=== PATIENT | female | born 1950 | race Caucasian/White ===

== ENCOUNTER → 2016-03-31 | Outpatient (CLI) | payer MEDICARE ==
[2015-10-24 19:06] VITALS: BP 123/73
[~2016-03-31] MED LIST: ALPR0.25 PO; ARMO250T2 PO; CYCL10TA2 PO; DOCU-27 PO; DULO60CA6 PO; ESCI10TA PO; ESCI20TA10 PO; ESCI5TAB8 PO; HYDR-2666 PO; HYDR-2762 PO; HYDR-963 PO; HYDR4TAB13 PO; IBUP-1060 PO; IBUP200T77 PO; MODA100T18 PO; RANI300C PO; RANI300T PO; TRAZ100T12 PO; TRIA1CAP13 PO
--- NOTE | 2016-03-31 14:04 | KCIC ---
PROCEDURE Two-view chest dated 03/31/2016. HISTORY Pneumonia, cough and shortness of breath for 1 month. TECHNIQUE PA and lateral views obtained. COMPARISON None. FINDINGS Heart and mediastinal contours within normal limits. Lungs are clear without focal consolidation. Vascular interstitium within normal limits. No pleural effusion or pneumothorax. Postsurgical changes of the thoracolumbar spine. IMPRESSION No acute radiographic abnormality. Electronically signed by: Jung Castro (Mar 31, 2016 14:02:10)
== END | disposition home or self-care (01) ==
LOC: KCIC 13:33
PROVIDERS: ATTEND Family Medicine
DX: J18.9 Pneumonia, unspecified organism (principal); R05 Cough; R06.02 Shortness of breath
CPT/HCPCS: 71020

== ENCOUNTER → 2016-08-17 | Outpatient (CLI) | payer MEDICARE ==
[2015-10-24 19:06] VITALS: BP 123/73
[~2016-08-17] MED LIST changes: +ERGO500012 PO; +GUAI600T38 PO; +OMEG1CAP38 PO; +TRIA1TAB5 PO
[2016-08-17 09:20] LABS: BASO # 0.1 x10^3/uL (0.0-0.2); BASO % 1 % (0-3); EOS % 4 % (0-3); HEMATOCRIT 44.6 % (36.0-47.0); HEMOGLOBIN 15.2 g/dL (12.0-15.5); LYMPH # 2.5 x10^3/uL (1.0-4.8); LYMPH % 31 % (24-48); MEAN CORPUSCULAR HEMOGLOBIN 29 pg (25-35); MEAN CORPUSCULAR HGB CONC 34 g/dL (31-37); MEAN CORPUSCULAR VOLUME 86 fL (79-100); MONO % 5 % (0-9); NEUT % 60 % (31-73); PLATELET COUNT 322 x10^3/uL (140-400); RED BLOOD COUNT 5.19 x10^6/uL (3.50-5.40); RED CELL DISTRIBUTION WIDTH 14.2 % (11.5-14.5); WHITE BLOOD COUNT 7.9 x10^3/uL (4.0-11.0)
[2016-08-17 09:25] LABS: PROTHROMBIN TIME PATIENT 12.5 SEC (11.7-14.0)
[2016-08-17 09:43] LABS: ALBUMIN 3.6 g/dL (3.4-5.0); CALCIUM 9.7 mg/dL (8.5-10.1); CREATININE 1.2 mg/dL (0.6-1.0); GFR 44.9; POTASSIUM 3.6 mmol/L (3.5-5.1)
[2016-08-17 10:36] LABS: BILIRUBIN,URINE NEGATIVE (NEG); GLUCOSE,URINE NEGATIVE (NEG); NITRITE,URINE NEGATIVE (NEG); PROTEIN,URINE NEGATIVE (NEG-TRACE); UROBILINOGEN,URINE 0.2 mg/dL (0.2 mg/dL)
[2016-08-17 10:56] LABS: RBC,URINE 0 /HPF (0-2)
[2016-08-17 10:57] LABS: BACTERIA,URINE MANY /HPF (0-FEW); SQUAMOUS EPITHELIAL CELL,UR MANY /LPF; WBC,URINE OCC /HPF (0-4)
== END | disposition home or self-care (01) ==
LOC: SURGPAT 12:35
PROVIDERS: ATTEND Orthopaedic Surgery
DX: M17.11 Unilateral primary osteoarthritis, right knee (principal)
CPT/HCPCS: 36415; 80048; 81001; 82040; 83036; 85027; 85610; 85651; 85730; 87086; 87641

== ENCOUNTER 2016-08-25 05:57 | Inpatient (IN) | payer MEDICARE ==
[2016-08-25] VITALS (10 sets, daily range): BP systolic 82–114; BP diastolic 49–70
[~2016-08-25] VITALS: Ht 167.6 cm; Wt 89.8 kg
[~2016-08-25 05:57] MED LIST changes: -ARMO250T2 PO; +ARMO250T4 PO; +DOCU-109 PO; -DOCU-27 PO; -ERGO500012 PO; +ERGO500027 PO; -ESCI10TA PO; -ESCI20TA10 PO; -ESCI5TAB8 PO; +ESCITALOPRAM OX10 MG PO; -GUAI600T38 PO; +GUAI600T47 PO; -HYDR-2666 PO; +HYDR-2758 PO; -HYDR4TAB13 PO; +HYDR4TAB45 PO; +LEXAPRO20 MG PO; +LEXAPRO5 MG PO; -MODA100T18 PO; +MODA100T26 PO
[2016-08-25] MEDS ORDERED: VANCOMYCIN 1GM IVPB FOR OMNI 250 ML IV PRN (06:00)
[2016-08-25] MEDS ORDERED: MORPHINE SULFATE 5 MG, KETOROLAC TROMETHAMINE 30 MG, ROPIVacaine 0.5% PF 60 ML, EPINEPH... INT ART ONE ×5 (06:00)
[2016-08-25] MEDS ORDERED: ONDANSETRON PF 4 MG/2 ML VIAL. IV PRN (07:00)
[2016-08-25] MEDS ORDERED: IV RINGERS,LACTATED 1000ML 1,000 ML IV SCH (07:00)
[2016-08-25] MEDS ORDERED: PROCHLORPERAZINE 10 MG/2 ML VIAL. IV PRN ×2 (07:00→10:00)
[2016-08-25] MEDS ORDERED: fentaNYL PF VIAL 100 MCG/2 ML VIAL IV PRN ×3 (07:00→10:00)
[2016-08-25] MEDS: IV RINGERS,LACTATED 1000ML 1,000 ML IV SCH ×2 (07:00→20:50)
[2016-08-25] MEDS ORDERED: LIDOCAINE 1% 1 ML SYRINGE. ID PRN (07:00)
[2016-08-25] MEDS ORDERED: WARF-78 PO (07:01)
[2016-08-25] MEDS ORDERED: MELO7.5T5 PO (07:02)
[2016-08-25] MEDS ORDERED: MELOXICAM 7.5 MG TABLET PO ONE (07:05)
[2016-08-25] MEDS ORDERED: ROCURONIUM 50 MG/5 ML VIAL. ONE (07:10)
[2016-08-25] MEDS ORDERED: LIDOCAINE 2% PF Vial for OR 5 ML VIAL. ONE (07:10)
[2016-08-25] MEDS ORDERED: MIDAZOLAM HCL/PF 2 MG/2 ML VIAL. ONE (07:10)
[2016-08-25] MEDS ORDERED: fentaNYL PF VIAL 100 MCG/2 ML VIAL ONE ×3 (07:10→08:02)
[2016-08-25] MEDS ORDERED: DEXAMETHASONE SOD PHOS 20 MG/5 ML VIAL. ONE (07:10)
[2016-08-25] MEDS ORDERED: PROPOFOL 20 ML IV ONE (07:10)
[2016-08-25] MEDS ORDERED: ONDANSETRON PF 4 MG/2 ML VIAL. ONE (07:10)
[2016-08-25] MEDS ORDERED: FAMOTIDINE 20 MG/2 ML VIAL ONE (07:10)
[2016-08-25] MEDS ORDERED: LABETALOL 20 MG/4 ML DISP.SYRIN. ONE (08:01)
[2016-08-25 08:10] LABS: PROTHROMBIN TIME PATIENT 12.3 SEC (11.7-14.0)
[2016-08-25] MEDS ORDERED: NEOSTIGMINE METHYLSULFATE 5 MG/5 ML SYRINGE. ONE (08:50)
[2016-08-25] MEDS ORDERED: GLYCOPYRROLATE 1 MG/5 ML VIAL. ONE (08:50)
[2016-08-25] MEDS ORDERED: SEVOFLURANE 61 TO 120 MINUTES. IH ONE (08:51)
[2016-08-25] MEDS ORDERED: MELOXICAM 7.5 MG TABLET PO SCH (09:00)
[2016-08-25] MEDS ORDERED: SEVOFLURANE > 120 MINUTES. IH ONE (09:36)
[2016-08-25] MEDS ORDERED: ACETAMINOPHEN 325 MG TABLET. PO PRN (10:00)
[2016-08-25] MEDS ORDERED: MORPHINE SULFATE 4 MG/ML DISP.SYRIN. IV PRN ×2 (10:00)
[2016-08-25] MEDS ORDERED: MORPHINE SULFATE 2 MG/ML DISP.SYRIN. IV PRN (10:00)
[2016-08-25] MEDS ORDERED: ZOLPIDEM 5 MG TABLET. PO PRN (10:00)
[2016-08-25] MEDS ORDERED: MORPHINE SULFATE 10 MG/ML VIAL. IV PRN (10:00)
[2016-08-25] MEDS ORDERED: CALCIUM CARBONATE 500 MG TAB.CHEW PO PRN (10:00)
[2016-08-25] MEDS ORDERED: diphenhydrAMINE 50 MG/ML VIAL IV PRN (10:00)
[2016-08-25] MEDS ORDERED: DEXTROSE 50% 25 GM / 50ML DISP.SYRIN. IV PRN (10:00)
[2016-08-25] MEDS ORDERED: traMADol 50 MG TABLET PO PRN (10:00)
[2016-08-25] MEDS ORDERED: HYDROmorphone 2 MG/ML VIAL IVP PRN (10:00)
[2016-08-25] MEDS ORDERED: HYDROmorphone 2 MG TABLET PO PRN (10:00)
[2016-08-25] MEDS: fentaNYL PF VIAL 100 MCG/2 ML VIAL IV PRN ×2 (10:20→11:10)
--- NOTE | 2016-08-25 10:38 | RAD ---
AP and lateral right knee radiographs 08/25/2016 Clinical history: Post right knee replacement. Portable AP and lateral digital radiographs of the right knee were obtained. The patient is status post right SHELLIE. The prosthetic components are intact. No fracture or dislocation is seen. Impression: Status post right TKA. No acute osseous abnormality is seen.
--- NOTE | 2016-08-25 10:45 | PDOC ---
BRIEF OPERATIVE NOTE Date: Aug 25, 2016 Pre-Op Diagnosis djd right knee Post-Op Diagnosis same Procedure Performed right total knee arthroplasty Surgeon Jono Chang Blood Loss 500cc Specimens Obtained cartilage surfaces to pathology Findings above Complications none LESLIE PEREZ MD Aug 25, 2016 10:45
--- NOTE | 2016-08-25 11:13 | HP ---
ADMIT DATE: 08/25/2016 PREOPERATIVE HISTORY AND PHYSICAL CHIEF COMPLAINT: Right knee pain and degenerative change. HISTORY OF PRESENT ILLNESS: The patient has had long-term right knee pain much worse even in the past few weeks. It is severely affecting her activities of daily living and continues to have much more severe right than left knee pain. She has had several previous injections that have been unresponsive and a history of DVT with previous foot surgery. She has also got some low back pain that is giving her problems affecting her sleep. PAST MEDICAL HISTORY: Significant for hypertension, reflux disease, depression, chronic back and neck pain, type 2 diabetes, pyelonephritis history, hyperlipidemia, recurrent sinusitis, history of lower GI bleed and inflammatory bowel disease. PAST SURGICAL HISTORY: Significant for hysterectomy, D and C, cholecystectomy, cervical fusion, lumbar diskectomy x 2, lumbar fusion with rods and a revision, total of about 8 back surgeries overall, cervical fusion C4-C5, lap band surgery and colonoscopy. FAMILY HISTORY: Significant for her father at 36 years due to kidney issues. Brother with blindness, hypertension, heart attack. Grandparents of old age and history of colon cancer in an uncle. SOCIAL HISTORY: She is a current smoker ____ about 40 years, quit and restarted back in 2013. Denies drug use, occasional alcohol consumption. 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 MEDICATIONS: List is reviewed. ALLERGIES: INCLUDE SULFA, WHICH GIVES HER A RASH; WELLBUTRIN, NEURONTIN; HIVES WITH KEFLEX; DIARRHEA WITH METFORMIN; MYALGIAS WITH CRESTOR; STOMACH UPSET WITH OPANA ER; HYDROCODONE, ITCHING AND PERCOCET THAT GAVE HER "HANGOVER". REVIEW OF SYSTEMS: Denies any chest pain, shortness of breath, fever, chills, constitutional symptoms. Again much more severe pain in her knee, even in the past couple of weeks. PHYSICAL EXAMINATION: VITAL SIGNS: Per admission sheet. HEENT: Atraumatic, normocephalic. HEART: Regular rate and rhythm. LUNGS: Clear to auscultation bilaterally. ABDOMEN: Benign. EXTREMITIES: Examination of the right knee, she has a moderate flexion contracture on the right and mild on the left. Has mild patellofemoral crepitus bilaterally, joint line tenderness right-sided much more so than the left. Ligamentously stable. Antalgic gait secondary to her right knee pain and DJD. IMAGING: X-rays show tricompartmental degenerative changes present on the right knee with some varus alignment and medial joint line where primarily. ASSESSMENT: Primary osteoarthritis, right knee. History of deep venous thrombosis, primary hypertension, neuropathy of feet, chronic pain syndrome, multiple back surgeries. TREATMENT PLAN: We have previously covered the possibility of operative management of the right knee with risks, benefits, postoperative course and she understands the possibility of infection, nerve or blood vessel damage, premature wear or loosening, medical or other anesthetic complications among others. All her questions were answered and she does want to proceed with surgical evaluation and treatment. We talked about the postoperative treatment options as well including outpatient rehabilitation, home health, physical therapy and the possibility of even a rehab if necessary, she prefers the [facility] in [place]. Outpatient physical therapy may be at [facility] in [place], which she was previously ____ convenient for her. LESLIE PEREZ MD DR: VINCE/sherry JOB#: [id number] / [id number] BLANCA Bermudez MD
[2016-08-25] MEDS: ESCITALOPRAM 10 MG TABLET. PO SCH (12:00)
[2016-08-25] MEDS: TRIAMTERENE/HCTZ 75/50MG TABLET. PO SCH (12:00)
[2016-08-25] MEDS: CLINDAMYCIN 600MG PREMIX 50 ML IV SCH ×2 (13:35→19:12)
[2016-08-25] MEDS: CYCLOBENZAPRINE 10 MG TABLET. PO SCH ×2 (13:39→21:38)
[2016-08-25] MEDS: KETOROLAC TROMETHAMINE 10 MG TABLET PO SCH ×2 (13:39→17:16)
[2016-08-25] MEDS: SENNOSIDES/DOCUSATE 8.6/50MG TABLET. PO SCH (13:39)
[2016-08-25] MEDS: HYDROmorphone 4 MG TABLET PO PRN (14:13)
[2016-08-25] MEDS ORDERED: WARFARIN 7.5 MG TABLET. PO ONE (16:00)
--- NOTE | 2016-08-25 16:40 | ACF ---
Admission Forms Criteria AMBULATORY SURGERY EXCEPTION CRITERIA Ambulatory Surgery Exception Criteria ( Place 'X' for any and all applicable criteria): Surgery or procedure performed on ambulatory basis may require inpatient stay for[A] ANY ONE of the following(1)(2)(3)(4)(5)(6)(7)(8)(9): [X] I. A preoperative situation, condition, or finding that warrants inpatient stay as indicated by ANY ONE of the following: [] a) Inpatient care needed because of severity of a disease or condition rather than the surgery (eg, severe cardiac or respiratory disease, severe infection) (15) (16 ) (17) (18) [] b) Emergent procedure (eg, angioplasty for acute ischemia)(19) [X] c) Complex surgical approach or situation as indicated by ANY ONE of the following(3): [X] i) Open approach needed instead of usual endoscopic, transcatheter, or other less invasive procedure [] ii) Difficult approach because of previous operation [] iii) Airway monitoring required after open neck procedures(20)(21 ) [] iv) Large mass requiring unusually extensive dissection [] v) Additional complicating feature requiring inpatient care (eg , drain management)(22(23): [] d) Major surgery in a pt with high anesthetic risk as indicated by ANY ONE of the following (2)(3)(5)(7)(8): [] i) ASA risk class III or higher (severe systemic disease impairing function) [D] [] ii) Advanced age (eg, older than 85 years)(14)(24) [] iii) Symptomatic heart failure(25) [] iv) Symptomatic asthma or COPD(8)(21) [] v) Morbid obesity with hemodynamic or respiratory problems(20)( 21)(26)(27) [] vi) Obstructive sleep apnea(20)(21) [] vii) Former premature infants who are younger than 60 weeks [] viii) High risk for severe postoperative abnormalities (eg, severe postoperative hypocalcemia after parathyroidectomy for severe hyperparathyroidism)(27)( 28) [] ix) Unstable angina(25) [] e) Drug-related risk requiring inpatient stay as indicated by ANY ONE of the following(5)(10)(14)(32)(33) [] i) Procedure requires discontinuing drugs or other therapy (eg , antiarrhythmic medication, antiseizure medication), which necessitates inpatient observation or treatment.(18)(31) [] ii) Major surgery and high risk drug use as indicated by ANY ONE of the following: [] 1) Active abuse of cocaine or similar drug [] 2) Monoamine oxidase inhibitor use [] 3) Other drug identified as posing risk [] f) Inadequate outpatient care situation as indicated by ANY ONE of the following(5)(10)(14)(32)(33) [] i) Patient lives remote from medical facility and procedure has urgent complication potential, and temporary nearby residence cannot be arranged [] ii) Patient will have postprocedure incapacitation and inadequate assistance at home, or alternative level of care cannot be arranged. [] iii) Patient will have long general anesthesia or procedure side effect resolution time, and competent person to stay with patient on first postoperative night at home or alternative level of care cannot be arranged. [] iv) Other inadequate outpatient situation that cannot be handled by other means [] II. A perioperative event, condition, or finding that warrants inpatient stay as indicated by ANY ONE of the following (1)(2)(3): [] a) Inadequate physiologic recovery: cardiovascular, respiratory, or hemodynamic status not normal or near preoperative baseline(18) [] b) Hemodynamic instability [] c) Patient not alert with near normal or baseline mental status [] d) Temperature not normal or as expected and not appropriate for outpatient treatment of condition [] e) Ambulatory or appropriate activity level status not yet achieved post procedure [E](34)(35)(36) [] f) Operative site not appropriate (eg, unexpected or excessive drainage or bleeding) [] g) Postoperative effects not resolved or adequately managed (eg, significant pain or vomiting not appropriate for outpatient or next level of care)(10)(12) [] h) Complicating features requiring inpatient care as indicated by ANY ONE of the following(37): [] i) Severe complications of procedure (eg, bowel injury, airway compromise, vascular injury,severe hemorrhage) [] ii) Extensive (eg, dissection far beyond usual scope of procedure ) or prolonged (eg, 120 minutes beyond usual) surgery needed requiring inpatient postoperative care [] iii) Conversion to an open or complex procedure that requires inpatient care (eg, open vs laparoscopic cholecystectomy, abdominal vs vaginal hysterectomy)(38) [] iv) Comorbid condition or test result identified during or post procedure that requires inpatient care (7) [] v) Malignant hyperthermia(30) [] vi) Other complicating feature requiring inpatient care(22)(23) Inpatient stay may be needed until ALL of the following are present (1)(2)(3)(4) (5)(6)(10)(14)(33)(40): []a) Physiologic recovery: cardiovascular, respiratory, and hemodynamic status normal or near preoperative baseline []b) Hemodynamic stability []c) Patient alert, with near normal or baseline mental status []d) Temperature appropriate: patient afebrile or temperature appropriate for outpt treatment of condition []e) Activity level appropriate: ambulatory or appropriate activity level post procedure []f) Operative site appropriate as indicated by ALL of the following: []i) Site dry or with expected drainage []ii) Any blood noted is as expected for procedure. []g) Postoperative effects resolved or managed as indicated by ALL of the following: []i) Pain management appropriate for outpatient (or next level of) care(10) []ii) Minimal nausea and vomiting: if present, successfully treated with oral medication(12) []iii) Headache, dizziness, or drowsiness (if present) are mild. []h) Voiding status acceptable as indicated by ANY ONE of the following: []i) Voiding spontaneously []ii) No voiding but instructions given for follow-up in 6 to 8 hours []iii) Urinary catheter in place, and instructions given for follow-up []i) Complicating features requiring inpatient care manageable at a lower level of care(37) []j) Comorbid conditions manageable at a lower level of care(37) The original [employer] content created by [employer] has been revised. The portions of the content which have been revised are identified through the use of italic text or in bold, and [employer] has neither reviewed nor approved the modified material. All other unmodified content is copyright [employer]. Please see references footnoted in the original [employer] edition 2016 Admission Criteria Met?: Yes MAYURI THORNTON Aug 25, 2016 16:40
[2016-08-25] MEDS ORDERED: PNEUMOC CONJ VACC 23-VALENT 0.5 ML VIAL. VAX IM ONE (17:00)
[2016-08-25] MEDS: IV DEXTROSE 5 %-0.45 % NACL 1,000 ML IV SCH ×2 (17:14→19:55)
[2016-08-25] MEDS: FERROUS SULFATE 325 MG TABLET. PO SCH (17:15)
[2016-08-25] MEDS: traZODone 100 MG TABLET. PO SCH (21:38)
[2016-08-25] MEDS: FAMOTIDINE 20 MG TABLET. PO SCH (21:38)
[2016-08-25] MEDS: traMADol 50 MG TABLET PO PRN (21:50)
[2016-08-26] MEDS: CLINDAMYCIN 600MG PREMIX 50 ML IV SCH (01:45)
[2016-08-26 02:55] VITALS: BP 87/56
[2016-08-26] MEDS: IV DEXTROSE 5 %-0.45 % NACL 1,000 ML IV SCH (05:55)
[2016-08-26] MEDS ORDERED: MAGNESIUM HYDROXIDE 2,400 MG/30 ML ORAL.SUSP. PO PRN (06:00)
[2016-08-26] MEDS: KETOROLAC TROMETHAMINE 10 MG TABLET PO SCH ×4 (06:14→19:37)
[2016-08-26 06:18] VITALS: BP 90/45
[2016-08-26 06:20] LABS: INR 1.3 (0.8-1.1); PROTHROMBIN TIME PATIENT 15.8 SEC (11.7-14.0)
[2016-08-26] MEDS ORDERED: NON FORMULARY ITEM (Modafinil (Provigil) 200 MG) PO SCH (09:00)
[2016-08-26] MEDS: IV RINGERS,LACTATED 1000ML 1,000 ML IV SCH (09:27)
[2016-08-26] MEDS: SENNOSIDES/DOCUSATE 8.6/50MG TABLET. PO SCH (09:31)
[2016-08-26] MEDS: FERROUS SULFATE 325 MG TABLET. PO SCH ×2 (09:31→17:08)
[2016-08-26] MEDS: CYCLOBENZAPRINE 10 MG TABLET. PO SCH ×3 (09:31→20:40)
[2016-08-26] MEDS: ESCITALOPRAM 10 MG TABLET. PO SCH (09:31)
[2016-08-26] MEDS: MULTIVITAMIN with MINERAL TABLET. PO SCH (09:32)
[2016-08-26] MEDS: TRIAMTERENE/HCTZ 75/50MG TABLET. PO SCH (09:36)
--- NOTE | 2016-08-26 09:59 | OP ---
DATE OF SURGERY: 08/25/2016 PREOPERATIVE DIAGNOSIS: Degenerative joint disease of right knee. POSTOPERATIVE DIAGNOSIS: Degenerative joint disease of right knee. PROCEDURE: Right total knee arthroplasty. SURGEON: Charli De La Cruz M.D. VISION MIXER: first carly Guerra. ANESTHESIA: General. ESTIMATED BLOOD LOSS: 500 mL. COMPLICATIONS: None. OPERATIVE INDICATIONS: The patient is a 66-year-old female with ongoing right knee pain severely affecting her activities of daily living. Even in the time was intervening between her last visit in June and her scheduled surgery, has had marked increase in her severity of pain and continues to wish to proceed with total knee arthroplasty. I had previously gone over with her the risks, benefits, postoperative course of the procedure including the possibility of infection, nerve or blood vessel damage, medical or other anesthetic complications, continued pain among others. All her questions were answered. Consent was obtained and she agrees to proceed with operative evaluation and treatment. DESCRIPTION OF PROCEDURE: The patient was identified, procedure verified, patient placed in the supine position on the operating table with a thigh tourniquet and prepped and draped in standard sterile fashion. After timeout was performed, the patient and procedure identified and verified, the tourniquet was not inflated, and a midline incision was made with medial parapatellar approach. Using the Magink display technologiestys device and electrocautery in combination bleeding points were controlled throughout the procedure. The patella was everted, fat pad was excised. Intramedullary drill was made to accommodate intramedullary femoral guide set at 5 degrees. Distal femoral cut was made in standard fashion as she had mild flexion contracture. Distal femur was sized at a size 6. Anterior, posterior chamfer cuts were then made. Posterior cruciate ligament was spared. Anterior cruciate was excised. Menisci were then excised. Extramedullary tibial cutting guide was applied to the second toe and resulting cut was noted to achieve excellent balance and flexion and extension gaps. Patella was then resurfaced. Lateral patellar bone was excised. A size 35 mm patella was chosen and trialed. Karthikeyan Persona components were then placed with a size 6 femur, size E tibia, size 35 mm patella and a 10 mm trial spacer medial congruent, which was noted to have excellent fit, ligament balance tracking. I then drilled the distal femoral lug holes, drilled and broached the tibia and trial components were removed. Thorough irrigation was carried out with normal saline solution. Previous intracapsular bleeding was controlled with Aquamantys, but again tracked particularly in the area of the ____ posterior capsule and incisional areas which were all well controlled. Bony surfaces were dried and the Karthikeyan Persona components were cemented and placed using polymethyl methacrylate cement, a size E standard tibia, a size 6 standard femur, a 35 mm patella and again a 10 mm trial spacer was placed initially with the leg held in extension until cement was dry. Any excess cement was removed. Thorough irrigation again carried out with normal saline solution. Capsular bleeding control was noted to be excellent. A vitamin E medial congruent 10 mm spacer was then locked into place. Hemovac drain and pain catheter were placed. Pain catheter mixture instilled around the area of the capsule. Retinaculum was closed with interrupted #2 Ethibond suture with running Ethibond and running #1 Vicryl as reinforcement. Subcutaneous closure with buried Vicryl suture, skin closure with subcuticular Monocryl. Steri-Strips and Mastisol were applied. The patient was extubated and transferred to postop holding in stable condition having tolerated the procedure well. Please note, Terra Chang, registered nurse first assistant, was present for the prepping, draping and assisted in subcuticular closure. CHARLI DE LA CRUZ MD DR: VINCE/sherry JOB#: [id number] / [id number] BLANCA Bermudez MD
[2016-08-26] MEDS: DULoxetine HCL 30 MG CAPSULE.DR PO SCH ×2 (11:47→20:41)
[2016-08-26] MEDS ORDERED: WARFARIN 5 MG TABLET. PO ONE (16:00)
[2016-08-26] MEDS ORDERED: BISACODYL 10 MG SUPP.RECT. PR PRN (16:00)
--- NOTE | 2016-08-26 17:25 | PDOC ---
PROGRESS NOTES Subjective Subjective Problems overnight: Doing well pain controlled getting up and around well with physical therapy Objective Vital Signs Vital Signs Date Time Temp Pulse Resp B/P (MAP) Pulse Ox O2 Delivery O2 Flow Rate FiO2 08/26/16 08:05 Room Air 08/26/16 07:37 16 91 2.0 08/26/16 06:18 98.0 72 90/45 (60) 98.0 Physical Exam Good early range of motion intact distal neurovascular status dressing drain pain catheter intact Labs Laboratory Tests Test 08/25/16 06:50 08/25/16 10:15 08/26/16 05:35 Prothrombin Time 12.3 SEC (11.7-14.0) 15.8 SEC (11.7-14.0) Prothromb Time International Ratio 1.0 (0.8-1.1) 1.3 (0.8-1.1) Activated Partial Thromboplast Time 23 SEC (24-38) Glucose (Fingerstick) 201 mg/dL (70-99) Laboratory Tests Test 08/26/16 05:35 Prothrombin Time 15.8 SEC (11.7-14.0) Prothromb Time International Ratio 1.3 (0.8-1.1) Assessment Assessment POD# [1], S/P [right total knee arthroplasty] Problems: Plan Plan of Care Coumadin anticoagulation weightbearing as tolerated standard total knee per protocol Placement plans on discharge range from outpatient physical therapy as is off 2 days a week and said he could take her with the help of his family to patient's possible desire for rehabilitation stay because of concerns about her previous 8 back surgeries LESLIE PEREZ MD Aug 26, 2016 17:25
[2016-08-26 18:18] VITALS: BP 106/60
[2016-08-26] MEDS: traZODone 100 MG TABLET. PO SCH (20:40)
[2016-08-26] MEDS: FAMOTIDINE 20 MG TABLET. PO SCH (20:41)
[2016-08-26] MEDS: traMADol 50 MG TABLET PO PRN (20:45)
[2016-08-26] MEDS: 0.9 % SODIUM CHLORIDE 10 ML DISP.SYRIN. IV PRN (20:46)
[2016-08-27 04:27] LABS: HEMATOCRIT 27.6 % (36.0-47.0)
[2016-08-27 04:31] LABS: INR 1.6 (0.8-1.1); PROTHROMBIN TIME PATIENT 18.3 SEC (11.7-14.0)
[2016-08-27] MEDS: KETOROLAC TROMETHAMINE 10 MG TABLET PO SCH ×5 (05:53→23:53)
[2016-08-27 06:00] VITALS: BP 99/55
[2016-08-27] MEDS: FERROUS SULFATE 325 MG TABLET. PO SCH ×2 (08:14→16:49)
[2016-08-27] MEDS: DULoxetine HCL 30 MG CAPSULE.DR PO SCH ×2 (08:14→21:12)
[2016-08-27] MEDS: ESCITALOPRAM 10 MG TABLET. PO SCH (08:15)
[2016-08-27] MEDS: SENNOSIDES/DOCUSATE 8.6/50MG TABLET. PO SCH (08:15)
[2016-08-27] MEDS: MULTIVITAMIN with MINERAL TABLET. PO SCH (08:15)
[2016-08-27] MEDS: TRIAMTERENE/HCTZ 75/50MG TABLET. PO SCH (08:19)
[2016-08-27] MEDS: CYCLOBENZAPRINE 10 MG TABLET. PO SCH ×3 (08:19→21:12)
--- NOTE | 2016-08-27 10:07 | PDOC ---
ORTHO PROGRESS NOTES Subjective Patient is sleepy today, RN reports that she has been sleeping a lot even during the day. Patient is doing ok with therapy, pain is controlled. Wants to go to rehab, anticipates talking with [facility] today Post-op Day: 2 (Right TKA) Vitals Vital Signs Date Time Temp Pulse Resp B/P (MAP) Pulse Ox O2 Delivery O2 Flow Rate FiO2 08/27/16 08:15 Room Air 08/27/16 06:00 98.1 81 18 99/55 (70) 93 98.1 08/26/16 07:37 2.0 Labs Laboratory Tests Test 08/25/16 10:15 08/26/16 05:35 08/27/16 02:50 Glucose (Fingerstick) 201 mg/dL (70-99) Prothrombin Time 15.8 SEC (11.7-14.0) 18.3 SEC (11.7-14.0) Prothromb Time International Ratio 1.3 (0.8-1.1) 1.6 (0.8-1.1) Hemoglobin 9.0 g/dL (12.0-15.5) Hematocrit 27.6 % (36.0-47.0) Mean Corpuscular Hemoglobin Concent 33 g/dL (31-37) Laboratory Tests Test 08/27/16 02:50 Hemoglobin 9.0 g/dL (12.0-15.5) Hematocrit 27.6 % (36.0-47.0) Mean Corpuscular Hemoglobin Concent 33 g/dL (31-37) Prothrombin Time 18.3 SEC (11.7-14.0) Prothromb Time International Ratio 1.6 (0.8-1.1) Notes Patient is sleeping when I came into the room, she is a bit drowsy during our conversation. Incision is covered with dressing and there is no drainage. Mild to moderate edema right knee. Neurovascular intact right lower extremity. Problems: (1) Degenerative arthritis of right knee Assessment and Plan Plan to talk with social work supervisor in regard to discharge plan today Anticoagulation per pharmacy Continue PT OT, weightbearing as tolerated Pain controlled Problem Qualifiers (1) Degenerative arthritis of right knee: Osteoarthritis type: primary Qualified Codes: M17.11 - Unilateral primary osteoarthritis, right knee DONY STEVE APRN Aug 27, 2016 10:06
[2016-08-27] MEDS ORDERED: WARFARIN 3 MG TABLET. PO ONE (16:00)
--- NOTE | 2016-08-27 16:56 | PATHOLOGY ---
PATHOLOGY REPORT * * * * * * * * FINAL DIAGNOSIS: Segments of bone and soft tissue, right total knee arthroplasty: - Advanced degenerative arthritis. (JPM:surya; d/t: 08/27/2016) REPORT ELECTRONICALLY SIGNED BY: Rigo Hurtado M.D. DATE/TIME: 08/27/2016 16:55 * * * * * * * * GROSS PATHOLOGY: Received in formalin labeled "Venceia Baig, right knee bone and tissue," are multiple segments of bone, including tibial plateau, measuring 10.5 x 8.2 x 1.9 cm in aggregate dimensions admixed with soft tissue; meniscus is present. The specimen shows focal eburnation of the articular surfaces. Transport Manager sections of bone and soft tissue are submitted in cassette A1, following decalcification. (CAA; 08/26/2016) INITIAL CPT CODE(S): A; 65661, 36068 Professional services performed [place] [address] Technical services performed by [facility] at [address] [place] [address]. SPECIMEN(S) RECEIVED: A.Right knee bone and tissue CLINICAL HISTORY: OA PATIENT: VENECIA BAIG /AGE: 6 1950 (Age: 66) PATIENT #: [id number] ALT CASE #: SPECIMEN COLLECTION DATE: 08/25/2016 SPECIMEN RECEIVED DATE: 08/25/2016 [facility] - [address] [place] [address] - PHONE: [phone] * * * END OF REPORT * * *
[2016-08-27 17:49] VITALS: BP 129/64
[2016-08-27] MEDS: 0.9 % SODIUM CHLORIDE 10 ML DISP.SYRIN. IV PRN (19:12)
[2016-08-27] MEDS: traZODone 100 MG TABLET. PO SCH (21:12)
[2016-08-27] MEDS: FAMOTIDINE 20 MG TABLET. PO SCH (21:12)
[2016-08-27] MEDS: HYDROmorphone 4 MG TABLET PO PRN (23:52)
[2016-08-28 05:05] VITALS: BP 115/63
[2016-08-28 05:20] LABS: HEMATOCRIT 26.4 % (36.0-47.0); HEMOGLOBIN 8.7 g/dL (12.0-15.5)
[2016-08-28 05:26] LABS: INR 1.7 (0.8-1.1); PROTHROMBIN TIME PATIENT 18.7 SEC (11.7-14.0)
[2016-08-28] MEDS: KETOROLAC TROMETHAMINE 10 MG TABLET PO SCH ×2 (06:00→12:00)
[2016-08-28] MEDS: SENNOSIDES/DOCUSATE 8.6/50MG TABLET. PO SCH (08:12)
[2016-08-28] MEDS: DULoxetine HCL 30 MG CAPSULE.DR PO SCH (08:12)
[2016-08-28] MEDS: MULTIVITAMIN with MINERAL TABLET. PO SCH (08:12)
[2016-08-28] MEDS: FERROUS SULFATE 325 MG TABLET. PO SCH (08:12)
[2016-08-28] MEDS: TRIAMTERENE/HCTZ 75/50MG TABLET. PO SCH (08:13)
[2016-08-28] MEDS: ESCITALOPRAM 10 MG TABLET. PO SCH (08:13)
[2016-08-28] MEDS: CYCLOBENZAPRINE 10 MG TABLET. PO SCH ×2 (08:37→14:04)
[2016-08-28] MEDS: HYDROmorphone 4 MG TABLET PO PRN ×2 (09:38→13:31)
--- NOTE | 2016-08-28 12:23 | ACF ---
Admission Forms Criteria MUSCULOSKELETAL DISEASE GRG Clinical Indications for Admission to Inpatient Care (Place 'X' for any and all applicable criteria): Hospital admission is needed for appropriate care of the patient because of 1 or more of the following: [ ]I. Fracture, dislocation, or other musculoskeletal injury requiring inpatient care(medical) as indicated by 1 or more of the following(4)(5)(6)(7) [ ]a) Vertebral fracture requiring observation for instability or neurologic compromise (8) [ ]b) Compartment syndrome (proven or cannot be ruled out during observation level of care) (9) [ ]c) Limb-threatening injury [ ]d) Major injury requiring inpatient stabilization such as traction initiation or external fixation before internal fixation or closure of complex or open fracture [ ]e) Major injury requiring inpatient treatment after emergency or observation level care (as appropriate) [ ]f) Severe pain requiring acute inpatient management [ ]g) Injury with suspicion of abuse or neglect (eg., child, dependent elderly) [ ]II. Newly diagnosed or suspected bone, joint, or orthopedic device infection (e.g., osteomyelitis, septic arthritis) needing 1 or more of the following(1)(2)(3) [ ]a) IV antibiotics that cannot be initiated in other than inpatient setting (e.g., patient too unstable or home infusion not available) [ ]b) Device removal or replacement [ ]c) Bone or soft tissue debridement [ ]d) Joint drainage (drain placement or repetitive aspirations) [ ]III. Severe rheumatologic disease (e.g., systemic lupus erythematosus, rheumatoid arthritis) with complications or comorbidities (Also use Optimal Recovery Care Criteria or General Recovery Criteria as appropriate on the basis of predominant condition), including 1 or more of the following( 10)(11)(12)(13) [ ]a) Severe infection (e.g., MARINE MACHINIST infection, sepsis) (14) [ ]b) Respiratory complications, including 1 or more of the following : [ ]i) Pleural effusion with respiratory compromise [ ]ii) Pulmonary hypertension with congestive failure [ ]iii) Respiratory failure [ ]iv) Pulmonary hemorrhage (15) [ ]c) Hematologic disease, including 1 or more of the following: [ ]i) Coagulopathy with bleeding [ ]ii) Thrombosis with hypercoagulable state [ ]iii) Thrombotic thrombocytopenic purpura [ ]d) Cerebritis with seizures, psychosis, or other severe abnormalities [ ]e) Vertebral destruction with monitoring needed for cervical myelopathy& possible respiratory compromise [ ]f) Exacerbation that requires inpatient treatment (e.g., intravenous immunosuppression) (16) [ ]g) Acute renal failure [ ]h) Cerebritis with seizures, psychosis, Altered mental status, or other neurologic abnormalities [ ]i) Pericardial effusion with tamponade [ ]j) Vertebral destruction, with monitoring needed for cervical myelopathy and possible respiratory compromise [ ]IV. Severe vasculitis with complications or comorbidities (Also use Optimal Recovery Care Criteria General Recovery Criteria as appropriate on the basis of predominant condition), including 1 or more of the following(11)(12)(17)(18)(19)(20) [ ]a) Exacerbation that requires inpatient treatment (e.g., intravenous immunosuppression) (19)(21) [ ]b) Pulmonary hemorrhage (15) [ ]c) MARINE MACHINIST vasculitis with seizures, psychosis, Altered mental status that is severe or persistent, or other severe abnormalities (22) [ ]d) Cerebral infarction [ ]e) Gastrointestinal ischemia [ ]f) Gangrene or threatened amputation [ ]g) Renal failure (16) [ ]h) Other significant complications of vasculitis ( eg., tissue or organ ischemia, organ dysfunction ) [ ]V. Severe myopathy as indicated by 1 or more of the following (28)(29) [ ]a) New onset of airway compromise or inability to swallow [ ]b) Respiratory deterioration with observation needed for impending respiratory failure [ ]c) Exacerbation that requires inpatient treatment (e.g., intravenous immunosuppression) [ ]. Severe crystal gout (arthropathy) indicated by 1 or more of the following (23)(24) [ ]a) Severe pain requiring acute inpatient management [ ]b) Exacerbation that requires inpatient treatment (e.g., intravenous treatment) [ ]VII.Rhabdomyolysis and 1 or more of the following (25)(26)(27) [ ]a) Acute renal failure [ ]b) Need for intravenous hydration after emergency or observation level care (as appropriate) [ ]c) Inability to maintain oral hydration [ ]d) Change in mental status [ ]e) Electrolyte abnormality that remains after emergency or observation level care (as appropriate) [ ]VIII Post amputation complication, as indicated by ANY ONE of the following [ ]a) Infection [ ]b) Dehiscence [ ]c) Myodesis failure [X]IX. Severe pain requiring acute inpatient management due to musculoskeletal condition [ ]X. Musculoskeletal Disease and ALL of the following: [ ]a) Symptom or finding for which emergency and observation care have failed or are not considered appropriate (Use General Criteria: Observation Care as appropriate) [ ]b) Presence of ANY ONE of the following [ ]i) A General Admission Criteria [ ]ii) A Pediatric General Admission Criteria The original [facility] content created by [email or web address] has been revised. The portions of the content which have been revised are identified through the use of italic text or in bold, and [facility] has neither reviewed nor approved the modified material. All other unmodified content is copyright [facility]. Please see references footnoted in the original [email or web address] edition 2016 Admission Criteria Met?: Yes MAYURI THORNTON Aug 28, 2016 12:23
[2016-08-28] MEDS ORDERED: WARFARIN 5 MG TABLET. PO ONE (13:00)
[2016-08-28] MEDS ORDERED: WARFARIN 3 MG TABLET. PO ONE (13:00)
[2016-08-28 14:27] VITALS: BP 124/52
--- NOTE | 2016-08-28 21:53 | DS ---
DATE OF DISCHARGE: 08/28/2016 CHIEF COMPLAINT: Right knee degenerative joint disease. PROCEDURE: Right total knee arthroplasty. DISPOSITION MEDICATIONS: The patient only takes her Dilaudid 8 mg on an intermittent basis for her back pain at home. She was not well controlled and unable to tolerate any Percocet or hydrocodone; therefore, I gave her Dilaudid 4 mg q. 4 hour dose as needed, Coumadin as directed by anticoagulation clinic. Otherwise, she will resume her home medications. DISPOSITION: Home with home health. Follow up with Dr. De La Cruz in 2 weeks. Standard total knee precautions, weightbearing as tolerated. Report any redness, drainage, fever, chills, uncontrolled pain or other problems. BRIEF DESCRIPTION OF HOSPITAL COURSE: The patient underwent an uncomplicated total knee arthroplasty. Laboratory values and vital signs were otherwise stable. She proceeded well through physical therapy and really her only major issue was pain and some muscle spasm last night after therapy, which is now resolving and better controlled. She was discharged home with home health. LESLIE DE LA CRUZ MD DR: VINCE/sherry JOB#: [id number] / [id number]
== END 2016-08-28 15:45 | disposition home health service (06) | DRG 470 ==
LOC: OPSVCIP 05:57 → 4 SOUTHEST 11:39
PROVIDERS: ADMIT Orthopaedic Surgery; ATTEND Orthopaedic Surgery
PROC: 0SRC0J9 Replacement of Right Knee Joint with Synthetic Substitute, Cemented, Open Approach (ICD-10-PCS; principal; 2016-08-26)
DX: M17.11 Unilateral primary osteoarthritis, right knee (principal); E78.5 Hyperlipidemia, unspecified; G89.4 Chronic pain syndrome; I10 Essential (primary) hypertension; J32.9 Chronic sinusitis, unspecified; K21.9 Gastro-esophageal reflux disease without esophagitis; F32.9 Major depressive disorder, single episode, unspecified; G89.29 Other chronic pain; E11.40 Type 2 diabetes mellitus with diabetic neuropathy, unspecified; Z82.1 Family history of blindness and visual loss; Z82.49 Family history of ischemic heart disease and other diseases of the circulatory system; Z86.718 Personal history of other venous thrombosis and embolism; Z87.891 Personal history of nicotine dependence
CPT/HCPCS: 36415; 73560; 82962; 85014; 85018; 85610; 85730; 86850; 86900; 86901; 88305; 88311; G0379; J0171; J0780; J1100; J1885; J2250; J2270; J2405; J2704; J2710; J2795; J3010; J3370; J3490; J7030; J7120; S0028; 97116; 97150; 97535; C1769

== ENCOUNTER 2016-09-02 22:32 | Emergency (ER) | payer MEDICARE ==
[~2016-09-02] VITALS: Ht 175.3 cm; Wt 89.8 kg
[~2016-09-02 22:32] MED LIST changes: +MELO7.5T5 PO; +WARF-78 PO
[2016-09-02] MEDS ORDERED: HYDROmorphone 2 MG/ML VIAL IV/SQ PRN (23:00)
[2016-09-02] MEDS ORDERED: IV NORMAL SALINE 1000ML BAG 1,000 ML IV SCH (23:00)
[2016-09-02] MEDS ORDERED: 0.9 % SODIUM CHLORIDE 10 ML DISP.SYRIN. IV PRN (23:00)
--- NOTE | 2016-09-02 23:03 | PHYS DOC ---
Past Medical History Past Medical History: Anxiety, DVT, GERD, High Cholesterol, Other Additional Past Medical Histor: back pain AND DVT RIGHT LEG Past Surgical History: Appendectomy, Cervical Fusion, Hysterectomy, Tonsillectomy, Other Additional Past Surgical Histo: back sg, cataract, RIGHT KNEE SX (08/25/16) Alcohol Use: None Drug Use: None Adult General Chief Complaint Chief Complaint: LOWER EXTREMITY SWELLING [facility] HPI Is is a pleasant 66-year-old female who had knee replacement surgery [address] De La Cruz complains of increasing leg pain that is gotten progressively worse over the last week. She's been on Coumadin but had her medication increased on Wednesday when he was subtherapeutic. She is noted increased swelling redness in the lower extremity and pain. She denies any change in numbness and tingling which is chronic for her lower leg she denies any fevers, chills, change since skin rash or direct trauma to the knee. She is worried since she's had a prior DVT and this feels much like the same. She denies any shortness breath, chest pain, nausea, vomiting, diarrhea, tinnitus, other neurologic changes or dizziness. Patient has been attempting to ambulate home with some success but her last day her pain is gotten progressively worse. It is a past medical history of renal cancer requiring no chemotherapy or radiation therapy. He was only treated with local surgery. She's had a history of hypertension, hyperlipidemia, prior back surgeries 8 Her primary risk factor for DVT and her history of cancer in the past we will screen her for DVT despite being on Coumadin. She was on the seventh subtherapeutic dose according to her history 3 days ago. She will COMPLETED WELL PT/INR CRP ESR CBC BLOOD CULTURES AND LACTIC ACID. THERE IS NO EVIDENCE OF SEPTIC JOINT ON HISTORY Review of Systems Review of Systems Constitutional: Denies fever or chills [] Eyes: Denies change in visual acuity, redness, or eye pain [] HENT: Denies nasal congestion or sore throat [] Respiratory: Denies cough or shortness of breath [] Cardiovascular: No additional information not addressed in HPI [] GI: Denies abdominal pain, nausea, vomiting, bloody stools or diarrhea [] : Denies dysuria or hematuria [] Musculoskeletal: Patient does have chronic lower back pain chronic joint pain in the right lower Integument: Denies rash or skin lesions [] Neurologic: Denies headache, focal weakness or she does complain of focal neurologic changes of sensation changes in the right lower extremity which are chronic. [] Endocrine: Denies polyuria or polydipsia [] Current Medications Current Medications Current Medications Medications (Trade) Dose Ordered Sig/Hina Start Time Stop Time Status Last Admin Dose Admin Hydromorphone HCl (Dilaudid) 1 mg PRN Q15MIN PRN 09/02/16 23:00 09/03/16 22:59 09/02/16 23:16 1 MG Sodium Chloride (Normal Saline Flush) 10 ml QSHIFT PRN 09/02/16 23:00 Allergies Allergies Allergies Coded Allergies Type Severity Reaction Last Updated Verified Sulfa (Sulfonamide Antibiotics) Allergy Intermediate Nausea and Vomiting Yes cephalexin Allergy Intermediate Nausea and Vomiting 05/02/15 Yes gabapentin Allergy Intermediate Itching 05/02/15 Yes hydrocodone Allergy Intermediate 05/02/15 Yes metformin Allergy Intermediate 05/02/15 Yes oxycodone Allergy Intermediate Nausea and Vomiting 05/02/15 Yes oxymorphone Allergy Intermediate 05/02/15 Yes bupropion Adverse Reaction Intermediate Unknown 08/11/16 Yes rosuvastatin Adverse Reaction Intermediate Unknown 08/11/16 Yes Physical Exam Physical Exam Constitutional: Well developed, well nourished, no acute distress, non-toxic appearance. [] HENT: Normocephalic, atraumatic, bilateral external ears normal, oropharynx moist, no oral exudates, nose normal. [] Eyes: PERRLA, EOMI, conjunctiva normal, no discharge. [] Neck: Normal range of motion, no tenderness, supple, no stridor. [] Cardiovascular:Heart rate regular rhythm, no murmur [] Lungs & Thorax: Bilateral breath sounds clear to auscultation [] Abdomen: Bowel sounds normal, soft, no tenderness, no masses, no pulsatile masses. [] Skin: Warm, dry, light erythema noted to the lower extremity below the knee joint and distal tib-fib Back: No tenderness, no CVA tenderness. [] Extremities: No tenderness, no cyanosis, no clubbing, does have decreased range of motion secondary to pain and postsurgical bandages over the knee. The skin is warm but not hot to touch. There is no soft tissue swelling or warmth around the knee itself she does have a mild Homans sign but most tenderness on the anterior portion of the tibia distal to the surgical site. Neurologic: Alert and oriented X 3, normal motor function, normal sensory function, no focal deficits noted. Light sensation. Proprioception noted in the lower extremity's bilaterally. [] Psychologic: Affect normal, judgement normal, mood normal. [] Current Patient Data Vital Signs Vital Signs Date Time Temp Pulse Resp B/P (MAP) Pulse Ox O2 Delivery O2 Flow Rate FiO2 09/02/16 23:16 18 96 Room Air 09/02/16 22:47 98.7 102 141/78 (99) 98.7 Lab Values Laboratory Tests Test 09/02/16 23:18 White Blood Count 7.7 x10^3/uL (4.0-11.0) Red Blood Count 3.48 x10^6/uL (3.50-5.40) L Hemoglobin 10.5 g/dL (12.0-15.5) L Hematocrit 30.8 % (36.0-47.0) L Mean Corpuscular Volume 88 fL (79-100) Mean Corpuscular Hemoglobin 30 pg (25-35) Mean Corpuscular Hemoglobin Concent 34 g/dL (31-37) Red Cell Distribution Width 14.3 % (11.5-14.5) Platelet Count 345 x10^3/uL (140-400) Neutrophils (%) (Auto) 57 % (31-73) Lymphocytes (%) (Auto) 27 % (24-48) Monocytes (%) (Auto) 6 % (0-9) Eosinophils (%) (Auto) 9 % (0-3) H Basophils (%) (Auto) 1 % (0-3) Neutrophils # (Auto) 4.4 x10^3uL (1.8-7.7) Lymphocytes # (Auto) 2.1 x10^3/uL (1.0-4.8) Monocytes # (Auto) 0.5 x10^3/uL (0.0-1.1) Eosinophils # (Auto) 0.7 x10^3/uL (0.0-0.7) Basophils # (Auto) 0.1 x10^3/uL (0.0-0.2) Prothrombin Time 17.3 SEC (11.7-14.0) H Prothrombin Time INR 1.5 (0.8-1.1) H Sodium Level 141 mmol/L (136-145) Potassium Level 3.2 mmol/L (3.5-5.1) L Chloride Level 100 mmol/L (98-107) Carbon Dioxide Level 35 mmol/L (21-32) H Anion Gap 6 (6-14) Blood Urea Nitrogen 16 mg/dL (7-20) Creatinine 1.2 mg/dL (0.6-1.0) H Estimated GFR (Cockcroft-Gault) 44.8 Glucose Level 128 mg/dL (70-99) H Lactic Acid Level 1.5 mmol/L (0.4-2.0) Calcium Level 9.0 mg/dL (8.5-10.1) Total Bilirubin 0.2 mg/dL (0.2-1.0) Direct Bilirubin 0.1 mg/dL (0.0-0.2) Aspartate Amino Transferase (AST) 14 U/L (15-37) L Alanine Aminotransferase (ALT) 27 U/L (14-59) Alkaline Phosphatase 49 U/L (46-116) C-Reactive Protein, Quantitative 16.4 mg/L (0-3.3) H Total Protein 6.0 g/dL (6.4-8.2) L Albumin 2.9 g/dL (3.4-5.0) L Laboratory Tests 09/02/16 23:18 Laboratory Tests 09/02/16 23:18 EKG EKG [] Radiology/Procedures Radiology/Procedures [] IMAGING REPORT Signed PATIENT: GREYSON VEELZ ACCOUNT: [id number] : 1950 LOCATION: ER AGE: 66 SEX: F EXAM STATUS: REG ER ORD. PHYSICIAN: ELIE TAVERAS MD REASON: swelling and pain after TKR PROCEDURE: VENOUS LOWER EXTREMITY RIGHT Right lower extremity venous Doppler dated 09/02/2016. No comparison available. CLINICAL INDICATION: Pain and swelling postknee replacement. FINDINGS: Grayscale, color-flow and spectral waveform analysis performed. Normal compressibility, phasicity and augmentation of flow throughout. No filling defects are seen. Small fluid collection in the popliteal fossa measures up to 3.1 cm in size. IMPRESSION: 1. No evidence of right lower extremity deep vein thrombosis. 2. Small popliteal cyst. Electronically signed by: Jung Castro MD (09/02/2016 11:52 PM) DICTATED and SIGNED BY: JUNG CASTRO MD DATE: 09/02/16 3239 CC: ELIE TAVERAS MD; BLANCA BE MD ~ Course & Med Decision Making Course & Med Decision Making Pertinent Labs and Imaging studies reviewed. (See chart for details) []Criteria: Age < than 50 years Heart rate < 100 Oxygen saturation > 95% No hemoptysis No estrogen use No prior DVT or PE No unilateral leg swelling No surgery or trauma requiring hospitalization within the prior 4 weeks Is positive so despite having history that is significant for DVT perc rules not applicable. Patient's ultrasound at bedside is negative for DVT she is subtherapeutic on her Coumadin I will offer her dose of 10 g at this time dictated separately. Continue her regular dose next day. She was skin is not warm it is mildly erythematous at the base not near the incision site. Doubt septic joint or localized infection like cellulitis I will have her continue Coumadin and follow -up with her regular doctor. She is presently only on hydromorphone 4 mg by mouth for every 4 hours as needed for pain which I do not focal increasing at this time. Patient was offered admission to the hospital although her pain is better control she would prefer to go home. She will follow-up with her or pick surgeon next 12-24 hours if necessary for continued management of her pain and reevaluation of her wound. Review of her laboratory work demonstrated a normal white blood cell count although she had an elevated CRP it may be just from postsurgical changes not from infection. Impression: Postsurgical edema postsurgical pain. No evidence of DVT. Subtherapeutic Coumadin level Disposition: Discharged home with PCP follow-up in the morning. Dragon Disclaimer Dragon Disclaimer This electronic medical record was generated, in whole or in part, using a voice recognition dictation system. Departure Departure Impression: Primary Impression: Knee swelling Additional Impressions: Leg pain Peripheral edema Disposition: 01 HOME, SELF-CARE Condition: IMPROVED Referrals: BLANCA BE MD (PCP) Patient Instructions: Leg Cramps, Pain Relief Preoperatively and Postoperatively, Peripheral Edema Additional Instructions: This follow-up with the orthopedic surgeon tomorrow and ensure that your therapeutic Coumadin levels were measured. I would ask you to return for any fever, increased redness, increased swelling of your lower leg. I would also asked her to return for any increased swelling or pain at the incision site crease redness at the incision or warmth at the knee. Problem Qualifiers ELIE TAVERAS MD Sep 02, 2016 23:03
--- NOTE | 2016-09-02 23:56 | RAD ---
Right lower extremity venous Doppler dated 09/02/2016. No comparison available. CLINICAL INDICATION: Pain and swelling postknee replacement. FINDINGS: Grayscale, color-flow and spectral waveform analysis performed. Normal compressibility, phasicity and augmentation of flow throughout. No filling defects are seen. Small fluid collection in the popliteal fossa measures up to 3.1 cm in size. IMPRESSION: 1. No evidence of right lower extremity deep vein thrombosis. 2. Small popliteal cyst. Electronically signed by: Jung Castro MD (09/02/2016 11:52 PM)
[2016-09-02 23:59] LABS: BASO # 0.1 x10^3/uL (0.0-0.2); BASO % 1 % (0-3); EOS % 9 % (0-3); HEMATOCRIT 30.8 % (36.0-47.0); HEMOGLOBIN 10.5 g/dL (12.0-15.5); LYMPH # 2.1 x10^3/uL (1.0-4.8); LYMPH % 27 % (24-48); MEAN CORPUSCULAR HEMOGLOBIN 30 pg (25-35); MEAN CORPUSCULAR HGB CONC 34 g/dL (31-37); MEAN CORPUSCULAR VOLUME 88 fL (79-100); MONO % 6 % (0-9); NEUT % 57 % (31-73); PLATELET COUNT 345 x10^3/uL (140-400); RED BLOOD COUNT 3.48 x10^6/uL (3.50-5.40); RED CELL DISTRIBUTION WIDTH 14.3 % (11.5-14.5); WHITE BLOOD COUNT 7.7 x10^3/uL (4.0-11.0)
[2016-09-03 00:12] LABS: INR 1.5 (0.8-1.1); PROTHROMBIN TIME PATIENT 17.3 SEC (11.7-14.0)
[2016-09-03 00:50] LABS: CREATININE 1.2 mg/dL (0.6-1.0); GFR 44.8; POTASSIUM 3.2 mmol/L (3.5-5.1)
[2016-09-03 00:56] LABS: ALBUMIN 2.9 g/dL (3.4-5.0); C-REACTIVE PROTEIN 16.4 mg/L (0-3.3); DIRECT BILIRUBIN 0.1 mg/dL (0.0-0.2); TOTAL BILIRUBIN 0.2 mg/dL (0.2-1.0)
[2016-09-03 01:21] VITALS: BP 119/79
[2016-09-03] MEDS ORDERED: WARFARIN 5 MG TABLET. PO ONE (01:30)
== END 2016-09-03 01:42 | disposition home or self-care (01) ==
LOC: ER 22:32
DX: M25.461 Effusion, right knee (principal); R60.0 Localized edema; F41.9 Anxiety disorder, unspecified; K21.9 Gastro-esophageal reflux disease without esophagitis; E78.00 Pure hypercholesterolemia, unspecified; I10 Essential (primary) hypertension; E78.5 Hyperlipidemia, unspecified; Z86.718 Personal history of other venous thrombosis and embolism; Z98.1 Arthrodesis status; Z90.49 Acquired absence of other specified parts of digestive tract; Z90.710 Acquired absence of both cervix and uterus; Z96.651 Presence of right artificial knee joint; Z98.49 Cataract extraction status, unspecified eye; Z79.01 Long term (current) use of anticoagulants; Z88.2 Allergy status to sulfonamides; Z88.1 Allergy status to other antibiotic agents; Z88.8 Allergy status to other drugs, medicaments and biological substances; Z88.5 Allergy status to narcotic agent
CPT/HCPCS: 36415; 80048; 80076; 83605; 85027; 85610; 85651; 86140; 87040; 93971; 96361; 96374; 99285; J1170; J7030

== ENCOUNTER → 2016-10-28 | Outpatient (CLI) | payer MEDICARE ==
[2016-10-28 13:41] LABS: BF CLARITY TURBID; BF COLOR YELLOW
== END | disposition home or self-care (01) ==
LOC: SPEC 12:32
PROVIDERS: ATTEND Orthopaedic Surgery
DX: Z96.651 Presence of right artificial knee joint (principal)
CPT/HCPCS: 87205; 89050

== ENCOUNTER 2016-11-03 14:01 | Inpatient (IN) | payer MEDICARE ==
[~2016-11-03] VITALS: Ht 166.4 cm; Wt 90.7 kg
[~2016-11-03 14:01] MED LIST changes: +IV RINGERS,LACTATED 1000ML 1,000 ML IV SCH; +LIDOCAINE 1% 1 ML SYRINGE. ID PRN; +LIDOCAINE 2% PF Vial for OR 5 ML VIAL. ONE; +PROCHLORPERAZINE 10 MG/2 ML VIAL. IV PRN; +PROPOFOL 20 ML IV ONE; +fentaNYL PF VIAL 100 MCG/2 ML VIAL IV PRN
[2016-11-03] MEDS ORDERED: FAMOTIDINE 20 MG/2 ML VIAL ONE (14:28)
[2016-11-03] MEDS ORDERED: ONDANSETRON PF 4 MG/2 ML VIAL. ONE (14:28)
[2016-11-03] MEDS ORDERED: MIDAZOLAM HCL/PF 2 MG/2 ML VIAL. ONE (14:29)
[2016-11-03] MEDS ORDERED: fentaNYL PF VIAL 100 MCG/2 ML VIAL ONE ×4 (14:29→16:53)
[2016-11-03] MEDS ORDERED: SUCCINYLCHOLINE 200 MG/10 ML VIAL. ONE (14:32)
[2016-11-03] MEDS ORDERED: ROCURONIUM 50 MG/5 ML VIAL. ONE (15:09)
[2016-11-03] MEDS ORDERED: NEOSTIGMINE METHYLSULFATE 5 MG/5 ML SYRINGE. ONE (15:30)
[2016-11-03] MEDS ORDERED: GLYCOPYRROLATE 1 MG/5 ML VIAL. ONE (15:30)
[2016-11-03] MEDS ORDERED: SEVOFLURANE 61 TO 120 MINUTES. IH ONE (16:00)
[2016-11-03] MEDS ORDERED: ZOLPIDEM 5 MG TABLET. PO PRN (16:15)
[2016-11-03] MEDS ORDERED: MORPHINE SULFATE 4 MG/ML DISP.SYRIN. IV PRN ×2 (16:15)
[2016-11-03] MEDS ORDERED: diphenhydrAMINE 50 MG/ML VIAL IV PRN (16:15)
[2016-11-03] MEDS ORDERED: PROCHLORPERAZINE 10 MG/2 ML VIAL. IV PRN (16:15)
[2016-11-03] MEDS ORDERED: HYDROmorphone 2 MG/ML VIAL IVP PRN (16:15)
[2016-11-03] MEDS ORDERED: CALCIUM CARBONATE 500 MG TAB.CHEW PO PRN (16:15)
[2016-11-03] MEDS ORDERED: ACETAMINOPHEN 325 MG TABLET. PO PRN (16:15)
[2016-11-03] MEDS ORDERED: DEXTROSE 50% 25 GM / 50ML DISP.SYRIN. IV PRN (16:15)
[2016-11-03] MEDS ORDERED: fentaNYL PF VIAL 100 MCG/2 ML VIAL IV PRN ×2 (16:15)
[2016-11-03] MEDS ORDERED: traMADol 50 MG TABLET PO PRN (16:15)
[2016-11-03] MEDS ORDERED: HYDROmorphone 2 MG TABLET PO PRN (16:15)
[2016-11-03] MEDS ORDERED: 0.9 % SODIUM CHLORIDE 10 ML DISP.SYRIN. IV PRN (16:15)
[2016-11-03] MEDS: fentaNYL PF VIAL 100 MCG/2 ML VIAL IV PRN ×3 (16:23→17:04)
[2016-11-03] MEDS: SENNOSIDES/DOCUSATE 8.6/50MG TABLET. PO SCH (18:00)
[2016-11-03] MEDS: TRIAMTERENE/HCTZ 75/50MG TABLET. PO SCH (18:00)
[2016-11-03] MEDS ORDERED: KETOROLAC TROMETHAMINE 10 MG TABLET PO PRN (18:00)
[2016-11-03] MEDS: CLINDAMYCIN 600MG PREMIX 50 ML IV SCH (18:00)
[2016-11-03 19:00] VITALS: BP 114/68
[2016-11-03 19:30] VITALS: BP 122/69
[2016-11-03] MEDS: HYDROmorphone 4 MG TABLET PO PRN (20:27)
[2016-11-03 21:00] VITALS: BP 116/64
[2016-11-03] MEDS: IV DEXTROSE 5 %-0.45 % NACL 1,000 ML IV SCH (21:22)
[2016-11-03] MEDS: CYCLOBENZAPRINE 10 MG TABLET. PO SCH (21:23)
[2016-11-03] MEDS: traZODone 100 MG TABLET. PO SCH (21:23)
[2016-11-03] MEDS: DULoxetine HCL 30 MG CAPSULE.DR PO SCH (21:23)
[2016-11-03 21:30] VITALS: BP 118/69
[2016-11-03 22:00] VITALS: BP 116/62
[2016-11-03 23:00] VITALS: BP 107/62
--- NOTE | 2016-11-03 23:49 | ACF ---
Admission Forms Criteria SKIN AND WOUND CARE ( Place 'X' for any and all applicable criteria): Ongoing inpatient care may be indicated for skin complications with 1 or more of the following [ ]I. Hemodynamic Instability((2)(8)(9)(28)(42)(43)(44) [ ]II. Dehydration that is severe or persistent [ ]III. Severe pain requiring acute inpatient management [X]IV. Inpatient treatment needed as indicated by 1 or more of the following: Pressure ulcer closure procedures [ ] i. Skin grafting(45) [ ]ii. Opthalmic surgical procedure (eg amniotic membrane grafting) [ ]iii. Serial ocular examinations [X]iv. Wound debridement [ ]v. Dressing change under general anesthesia [ ]vi. Diverting colostomy [ ]vii. Intravenous immunosuppressant therapy [ ]V. Significant burn as indicated by 1 or more of the following [ ]i. Full thickness burn greater than 10% of body surface area [ ]ii. Any burn greater than 15% of body surface area [ ]iii. Serious burn of hand, foot, genitals, face or joint [ ]iv. Burn accompanied by other significant medical problems or injuries (eg altered mental [ ]v. status, arrhythmia, inability to maintain oral hydration, significant wound) [ ]vi. Serious chemical burn [ ]vii. High voltage (e.g. 1000 volts or more) electrical burn [ ]viii. Circumferential burn [ ] . Skin infection requiring inpatient care as indicated by ALL of the following: [ ]a) Infection suspected as indicated by 1 or more of the following: [ ] i. Excessive drainage [ ]ii. Pus [ ]iii. Increased redness [ ]iv. Foul Odor [ ]v. Fever [ ]b) Clinically significant infection as indicated by 1 or more of the following: [ ]i. Vital signs abnormality [ ]ii. Persistantly high temperatures greater than 103.1 degrees F (39.5degrees C)(Oral) [ ]iii. Unexplained metabolic acidosis (eg lactic acidosis) [ ]iv. Evidence of end organ dysfunction (eg rising creatinine, myocardial ischemia, liver function tests) [ ]v. Hypoxemia [ ]vi. Tachypnea [ ]vii. Altered mental status [ ]viii. Dehydration that is severe or persistent Extended stay beyond goal length of stay for primary condition may be needed until ALL of the following are present(1)(2)(13)(21)(27): [ ]a) Hemodynamic instability [ ]b) Volume status acceptable [ ]c) Mental status at baseline [ ]d) Tissue necrosis absent or treatment plan manageable at lower level of care [ ]e) Fever absent or temperature as expected for disease process and acceptable for next level of care [ ]f) Hypoxemia present [ ]g) Tachypnea present [ ]h) Fistulas, tunneling, or underlying deep tissue infection absent or treated [ ]i) Purulence and tissue breakdown absent or improved [ ]j) Ulcer surgical repair absent or healing without complications [ ]k) Wound infection absent or manageable at lower level of care [ ]l) Comorbidities absent or manageable at lower level of care The original [facility] content created by [facility] [employer] has been revised. The portions of the content which have been revised are identified through the use of italic text, and [facility] has neither reviewed nor approved the modified material. All other unmodified content is copyright [facility]. Please see references footnoted in the original [facility] edition 2014 Admission Criteria Met?: Yes YOANA FREEMAN Nov 03, 2016 23:49
[2016-11-04] MEDS: CLINDAMYCIN 600MG PREMIX 50 ML IV SCH ×2 (00:28→05:48)
[2016-11-04] MEDS: HYDROmorphone 4 MG TABLET PO PRN ×4 (00:30→19:30)
[2016-11-04] MEDS: IV DEXTROSE 5 %-0.45 % NACL 1,000 ML IV SCH ×3 (02:14→22:14)
[2016-11-04 03:00] VITALS: BP 125/71
[2016-11-04] MEDS ORDERED: MAGNESIUM HYDROXIDE 2,400 MG/30 ML ORAL.SUSP. PO PRN (06:00)
[2016-11-04 07:00] VITALS: BP 114/64
[2016-11-04] MEDS ORDERED: NON FORMULARY ITEM (Modafinil (Provigil) 200 MG) PO SCH (09:00)
[2016-11-04] MEDS: CITALOPRAM 20 MG TABLET. PO SCH ×2 (09:00→17:31)
[2016-11-04] MEDS: DULoxetine HCL 30 MG CAPSULE.DR PO SCH ×2 (09:08→22:02)
[2016-11-04] MEDS: CYCLOBENZAPRINE 10 MG TABLET. PO SCH ×3 (09:08→21:00)
[2016-11-04] MEDS: TRIAMTERENE/HCTZ 75/50MG TABLET. PO SCH (09:08)
[2016-11-04] MEDS: SENNOSIDES/DOCUSATE 8.6/50MG TABLET. PO SCH (09:09)
[2016-11-04] MEDS: FERROUS SULFATE 325 MG TABLET. PO SCH ×2 (09:09→17:31)
[2016-11-04 11:00] VITALS: BP 91/57
[2016-11-04 15:00] VITALS: BP 98/54
[2016-11-04] MEDS: MELOXICAM 7.5 MG TABLET PO SCH (15:07)
[2016-11-04] MEDS: MULTIVITAMIN with MINERAL TABLET. PO SCH (15:08)
[2016-11-04] MEDS ORDERED: BISACODYL 10 MG SUPP.RECT. PR PRN (16:00)
--- NOTE | 2016-11-04 17:11 | DISCH ---
DISCHARGE INSTRUCTIONS Condition on Discharge Condition on Discharge: Stable Activity After Discharge Activity Instructions for Disc: Other, see below Weight Bearing Status after Di: Full weight bearing, As tolerated Diet after Discharge Diet after Discharge: Regular Wound Incision Care Wound/Incision Care: Ice to area for comfort, Keep wound elevated, Do not change dressing Wound Care Equipment: Dressings (jerome may be changed if saturated) Community/Resources/Services Services at Discharge: Home Health Care Services, PT EVALUATE & TREAT (gentle advance of knee flexion only, limit to 90 degrees) Contacting the DRSparkle after DC Call your doctor for: Concerns you may have Follow-Up Follow up with: Jono 1 week Treatment/Equipment after DC Adaptive Equipment Issued: Front wheeled walker LESLIE PEREZ MD Nov 04, 2016 17:11
[2016-11-04 19:00] VITALS: BP 92/53
[2016-11-04] MEDS: traZODone 100 MG TABLET. PO SCH (22:03)
[2016-11-04 23:00] VITALS: BP 104/48
[2016-11-05 03:00] VITALS: BP 110/88
[2016-11-05 07:49] VITALS: BP 118/49
--- NOTE | 2016-11-05 08:38 | DS ---
DATE OF DISCHARGE: 11/04/2016 PRINCIPAL DIAGNOSIS: Traumatic wound dehiscence of the right knee. OPERATIVE PROCEDURES: Includes irrigation, debridement and polyethylene exchange with closure. DISCHARGE MEDICATIONS: Include Dilaudid 4 mg 1-2 p.o. q. 6 h. p.r.n. pain. Resume home medications. ACTIVITY RESTRICTIONS: Weightbearing as tolerated. Ambulation and transfers permitted. To avoid knee flexion past approximately 90 degrees and avoid squatting type exercises. Follow up with Dr. De La Cruz in approximately 2 weeks. BRIEF DESCRIPTION OF HOSPITAL COURSE: The patient was noted to have continued drainage from her knee following a traumatic wound from a fall and despite negative cultures in the clinic, again continued to have significant drainage and based on the concern for potential infection if this continued to go on and her pain, swelling and limitation, elected to undergo the procedure which occurred uneventfully. Postoperatively, she was noted to have reasonable pain control on her medications and transferred safely with physical therapy and was discharged home in stable condition. LESLIE DE LA CRUZ MD DR: VINCE/sherry JOB#: [id number] / [id number]
[2016-11-05] MEDS: SENNOSIDES/DOCUSATE 8.6/50MG TABLET. PO SCH (09:00)
[2016-11-05] MEDS: CITALOPRAM 20 MG TABLET. PO SCH (09:32)
[2016-11-05] MEDS: MULTIVITAMIN with MINERAL TABLET. PO SCH (09:33)
[2016-11-05] MEDS: FERROUS SULFATE 325 MG TABLET. PO SCH (09:33)
[2016-11-05] MEDS: CYCLOBENZAPRINE 10 MG TABLET. PO SCH (09:33)
[2016-11-05] MEDS: HYDROmorphone 4 MG TABLET PO PRN (09:33)
[2016-11-05] MEDS: TRIAMTERENE/HCTZ 75/50MG TABLET. PO SCH (09:33)
[2016-11-05] MEDS: DULoxetine HCL 30 MG CAPSULE.DR PO SCH (09:34)
[2016-11-05] MEDS: MELOXICAM 7.5 MG TABLET PO SCH (09:34)
[2016-11-05 11:30] VITALS: BP 118/60
[2016-11-05 15:34] VITALS: BP 112/63
--- NOTE | 2016-11-06 09:05 | PDOC4 ---
Operative Note Operative Note Date of surgery: 11/03/2016 Preoperative diagnosis: Right knee pain swelling and drainage status post fall and previous total knee arthroplasty Postoperative diagnosis: Traumatic wound dehiscence Procedure: Exploration with irrigation and debridement right knee joint with polyethylene exchange and closure Surgeon: Jono Anesthesia: Gen. moreno Estimated blood loss 100 mL Complications: None Intraoperative tissue cultures were sent Findings: Above Operative indications: Patient is well-known to me from a previous total knee arthroplasty about 2 months prior who had complained of increased pain following a fall. She subsequently developed some wound drainage which was persistent and when it failed to resolve and she continued to have pain and swelling in the knee her knee joint itself was aspirated and was negative for aerobic and anaerobic cultures. Despite that she continued to have significant pain and limitations and with the continued drainage judged that she was at some risk for potential development of infection and therefore we discussed the possibility of exploration with irrigation debridement superficially or more intervention depending on the intraoperative findings. All her questions were answered consent was obtained and she agrees to proceed with operative evaluation and treatment. Operative text: Patient was identified procedure verified patient placed in the supine position on the operating table after adequate amounts of general endotracheal anesthesia were administered a thigh tourniquet was placed on the right side and all bony prominences were well-padded and the right lower extremity was prepped and draped in standard sterile fashion. After timeout was performed patient procedure identified and verified, tourniquet was inflated to 300 mmHg a midline incision was made and she was noted to have traumatic dehiscence of the closure of the retinaculum and distal portion of the quadriceps tendon. I sent intraoperative tissue cultures from deep in the joint at this time and debridement was carried out of the synovial areas. The knee joint was noted remained well fixated no gross evidence of infection of any type was noted. Thorough irrigation was carried out with pulsatile lavage containing normal saline solution. Given the potential communication, I elected to do a polyethylene exchange and with removal of the polyethylene further debridement of the synovium and control of bleeding points using electrocautery , a vitamin E medial congruent polyethylene spacer 10 mm in thickness corresponding to the size 6 femur and the persona tibial component was then locked in place. A Hemovac drain was placed and closure of the distal quadriceps tendon and retinaculum was carried out with strata fix #1 barbed PDS suture using a total of 2 that were oversewn. Subcutaneous closure was accomplished with buried PDS suture and subcuticular closure with strata fix 3- 0 Monocryl suture. A jerome dressing was then placed. Patient was extubated transferred to postop holding in stable condition having tolerated the procedure well LESLIE PEREZ MD Nov 06, 2016 09:05
== END 2016-11-05 15:08 | disposition home health service (06) | DRG 909 ==
LOC: SURG 14:01 → 4 NORTH 16:14
PROVIDERS: ADMIT Orthopaedic Surgery; ATTEND Orthopaedic Surgery
PROC: 0KBS0ZZ Excision of Right Lower Leg Muscle, Open Approach (ICD-10-PCS; principal; 2016-11-04)
PROC: 0SPC08Z Removal of Spacer from Right Knee Joint, Open Approach (ICD-10-PCS; 2016-11-04)
PROC: 0SHC08Z Insertion of Spacer into Right Knee Joint, Open Approach (ICD-10-PCS; 2016-11-04)
DX: T81.31XA Disruption of external operation (surgical) wound, not elsewhere classified, initial encounter (principal); I10 Essential (primary) hypertension; Y83.8 Other surgical procedures as the cause of abnormal reaction of the patient, or of later complication, without mention of misadventure at the time of the procedure; K21.9 Gastro-esophageal reflux disease without esophagitis; E78.5 Hyperlipidemia, unspecified; Z90.710 Acquired absence of both cervix and uterus; Y92.89 Other specified places as the place of occurrence of the external cause; Z88.8 Allergy status to other drugs, medicaments and biological substances; Z79.899 Other long term (current) drug therapy; Z79.01 Long term (current) use of anticoagulants
CPT/HCPCS: 87071; 87075; 87205; C1713; J0330; J2250; J2405; J2704; J2710; J3010; J3490; S0028; 97110; 97116; 97535; C1769; J2001

== ENCOUNTER → 2017-03-16 | Outpatient (CLI) | payer MEDICARE | END | disposition home or self-care (01) | LOC: NM 08:14 | DX: M25.561 Pain in right knee (principal); M25.461 Effusion, right knee; Z87.891 Personal history of nicotine dependence; Z96.651 Presence of right artificial knee joint | CPT/HCPCS: 78805; 96374; A9521 ==

== ENCOUNTER → 2017-04-13 | Outpatient (CLI) | payer MEDICARE ==
[2017-04-13 13:55] LABS: ADD MAN DIFF? NO
[2017-04-13 14:02] LABS: BASO # 0.1 x10^3/uL (0.0-0.2); BASO % 1 % (0-3); EOS # 0.2 x10^3/uL (0.0-0.7); EOS % 2 % (0-3); HEMOGLOBIN 13.5 g/dL (12.0-15.5); LYMPH # 2.4 x10^3/uL (1.0-4.8); LYMPH % 29 % (24-48); MEAN CORPUSCULAR HEMOGLOBIN 27 pg (25-35); MEAN CORPUSCULAR HGB CONC 33 g/dL (31-37); MEAN CORPUSCULAR VOLUME 81 fL (79-100); MONO # 0.5 x10^3/uL (0.0-1.1); MONO % 6 % (0-9); NEUT # 5.2 x10^3uL (1.8-7.7); NEUT % 63 % (31-73); PLATELET COUNT 360 x10^3/uL (140-400); RED BLOOD COUNT 5.04 x10^6/uL (3.50-5.40); RED CELL DISTRIBUTION WIDTH 16.4 % (11.5-14.5); WHITE BLOOD COUNT 8.3 x10^3/uL (4.0-11.0)
[2017-04-13 14:06] LABS: BILIRUBIN,URINE NEGATIVE (NEG); CLARITY,URINE CLEAR; COLOR,URINE YELLOW; GLUCOSE,URINE NEGATIVE (NEG); NITRITE,URINE NEGATIVE (NEG); PROTEIN,URINE NEGATIVE (NEG-TRACE); UROBILINOGEN,URINE 0.2 mg/dL (0.2 mg/dL)
[2017-04-13 14:10] LABS: ALBUMIN 3.4 g/dL (3.4-5.0); ANION GAP 5 (6-14); BLOOD UREA NITROGEN 24 mg/dL (7-20); CARBON DIOXIDE 34 mmol/L (21-32); CHLORIDE 97 mmol/L (98-107); CREATININE 1.1 mg/dL (0.6-1.0); GFR 49.5; GLUCOSE 104 mg/dL (70-99); SODIUM 136 mmol/L (136-145)
[2017-04-13 14:14] LABS: POTASSIUM 2.9 mmol/L (3.5-5.1)
[2017-04-13 14:15] LABS: RBC,URINE 0 /HPF (0-2); WBC,URINE OCC /HPF (0-4)
[2017-04-13 14:16] LABS: BACTERIA,URINE FEW /HPF (0-FEW); SQUAMOUS EPITHELIAL CELL,UR MOD /LPF
[2017-04-13 14:17] LABS: INR 0.9 (0.8-1.1); PARTIAL THROMBOPLASTIN TIME 24 SEC (24-38); PROTHROMBIN TIME PATIENT 11.8 SEC (11.7-14.0)
[2017-04-13 15:10] LABS: SEDIMENTATION RATE 10 (0-25)
[2017-04-14 02:17] LABS: HEMOGLOBIN A1C 6.2 % (4.8-5.6)
[2017-04-14 10:21] LABS: MRSA BY PCR Negative (Negative)
== END | disposition home or self-care (01) ==
LOC: SURGPAT 13:17
DX: Z01.818 Encounter for other preprocedural examination (principal); I70.0 Atherosclerosis of aorta; M43.25 Fusion of spine, thoracolumbar region; D68.9 Coagulation defect, unspecified; R79.89 Other specified abnormal findings of blood chemistry
CPT/HCPCS: 36415; 71046; 80048; 81001; 82040; 83036; 85025; 85610; 85651; 85730; 87641; 93005

== ENCOUNTER → 2017-04-15 | Outpatient (CLI) | payer MEDICARE ==
[2017-04-15 17:31] LABS: ANION GAP 7 (6-14); BLOOD UREA NITROGEN 27 mg/dL (7-20); CALCIUM 10.2 mg/dL (8.5-10.1); CARBON DIOXIDE 31 mmol/L (21-32); CHLORIDE 101 mmol/L (98-107); CREATININE 0.9 mg/dL (0.6-1.0); GFR 62.5; GLUCOSE 121 mg/dL (70-99); SODIUM 139 mmol/L (136-145)
== END | disposition home or self-care (01) ==
LOC: LAB 16:07
DX: E87.6 Hypokalemia (principal)
CPT/HCPCS: 36415; 80048

== ENCOUNTER 2017-04-16 10:33 | Inpatient (IN) | payer MEDICARE ==
[2017-04-16] MEDS: MORPHINE SULFATE 5 MG, KETOROLAC 30 MG, ROPIVacaine 0.5% PF 60 ML, EPINEPHrine 0.5 MG i... INT ART (06:00)
[~2017-04-16 10:33] MED LIST changes: -ALPR0.25 PO; -ARMO250T4 PO; -CYCL10TA2 PO; -DOCU-109 PO; -DULO60CA6 PO; -ERGO500027 PO; -ESCITALOPRAM OX10 MG PO; -GUAI600T47 PO; -HYDR-2758 PO; -HYDR-2762 PO; -HYDR-963 PO; -HYDR4TAB45 PO; -IBUP-1060 PO; -IBUP200T77 PO; -IV RINGERS,LACTATED 1000ML 1,000 ML IV SCH; -LEXAPRO20 MG PO; -LEXAPRO5 MG PO; -LIDOCAINE 1% 1 ML SYRINGE. ID PRN; +LIDOCAINE 1% PF 2 ML VIAL. ID; -LIDOCAINE 2% PF Vial for OR 5 ML VIAL. ONE; -MELO7.5T5 PO; -MODA100T26 PO; -OMEG1CAP38 PO; +ONDANSETRON PF 4 MG/2 ML VIAL. IV; +PROCHLORPERAZINE 10 MG/2 ML VIAL. IV; -PROCHLORPERAZINE 10 MG/2 ML VIAL. IV PRN; -PROPOFOL 20 ML IV ONE; -RANI300C PO; -RANI300T PO; -TRAZ100T12 PO; -TRIA1CAP13 PO; -TRIA1TAB5 PO; -WARF-78 PO; -fentaNYL PF VIAL 100 MCG/2 ML VIAL IV PRN
[2017-04-16 11:24] LABS: POC GLUCOSE 86 mg/dL (70-99)
[2017-04-16] MEDS ORDERED: ACETAMINOPHEN 500 MG TABLET PO (11:33)
[2017-04-16 11:37] LABS: PROTHROMBIN TIME PATIENT 12.4 SEC (11.7-14.0)
[2017-04-16] MEDS: ACETAMINOPHEN 500 MG TABLET PO (11:39)
[2017-04-16] MEDS ORDERED: LIDOCAINE 2% PF Vial for OR 5 ML VIAL. (11:40)
[2017-04-16] MEDS ORDERED: PROPOFOL 20 ML IV (11:40)
[2017-04-16] MEDS ORDERED: DEXAMETHASONE SOD PHOS 20 MG/5 ML VIAL. (11:40)
[2017-04-16] MEDS ORDERED: FAMOTIDINE 20 MG/2 ML VIAL (11:40)
[2017-04-16] MEDS ORDERED: ONDANSETRON PF 4 MG/2 ML VIAL. (11:40)
[2017-04-16] MEDS ORDERED: fentaNYL PF VIAL 100 MCG/2 ML VIAL ×2 (11:41→14:58)
[2017-04-16] MEDS ORDERED: MIDAZOLAM HCL/PF 2 MG/2 ML VIAL. (11:41)
[2017-04-16] MEDS ORDERED: ROCURONIUM 50 MG/5 ML VIAL. (11:41)
[2017-04-16] MEDS: IV RINGERS,LACTATED 1000ML 1,000 ML IV (11:45)
[2017-04-16 11:50] LABS: PARTIAL THROMBOPLASTIN TIME 23 SEC (24-38)
[2017-04-16] MEDS ORDERED: MORPHINE SULFATE 10 MG/ML VIAL. (12:57)
[2017-04-16] MEDS ORDERED: LABETALOL 20 MG/4 ML DISP.SYRIN. (13:10)
[2017-04-16] MEDS ORDERED: 0.9 % SODIUM CHLORIDE 50 ML VIAL. IJ (13:10)
[2017-04-16] MEDS ORDERED: GLYCOPYRROLATE 1 MG/5 ML VIAL. (13:36)
[2017-04-16] MEDS ORDERED: NEOSTIGMINE METHYLSULFATE 5 MG/5 ML SYRINGE. (13:36)
[2017-04-16] MEDS: VANCOMYCIN 1 GM in IV DEXTROSE 5% 250 ML IV ×2 (13:45→15:04)
[2017-04-16] MEDS ORDERED: SEVOFLURANE 61 TO 120 MINUTES. IH (14:29)
[2017-04-16] MEDS: IV DEXTROSE 5 %-0.45 % NACL 1,000 ML IV (14:44)
[2017-04-16] MEDS ORDERED: DEXTROSE 50% 25 GM / 50ML DISP.SYRIN. IV (14:45)
[2017-04-16] MEDS ORDERED: ZOLPIDEM 5 MG TABLET. PO (14:45)
[2017-04-16] MEDS ORDERED: diphenhydrAMINE 50 MG/ML VIAL IV (14:45)
[2017-04-16] MEDS ORDERED: 0.9 % SODIUM CHLORIDE 10 ML DISP.SYRIN. IV (14:45)
[2017-04-16] MEDS ORDERED: ACETAMINOPHEN 325 MG TABLET. PO (14:45)
[2017-04-16] MEDS ORDERED: HYDROmorphone 2 MG/ML VIAL IVP (14:45)
[2017-04-16] MEDS ORDERED: CALCIUM CARBONATE 500 MG TAB.CHEW PO (14:45)
[2017-04-16] MEDS ORDERED: PROCHLORPERAZINE 10 MG/2 ML VIAL. IV (14:45)
[2017-04-16] MEDS ORDERED: fentaNYL PF VIAL 100 MCG/2 ML VIAL IV (14:45)
[2017-04-16] MEDS ORDERED: MORPHINE SULFATE 2 MG/ML DISP.SYRIN. (14:46)
[2017-04-16] MEDS: MORPHINE SULFATE 2 MG/ML DISP.SYRIN. IV ×2 (14:50→15:01)
[2017-04-16] MEDS: fentaNYL PF VIAL 100 MCG/2 ML VIAL IV ×4 (15:14→20:39)
[2017-04-16] MEDS: HYDROmorphone 4 MG TABLET PO ×2 (17:00→20:38)
[2017-04-16] MEDS: CARVEDILOL 6.25 MG TABLET. PO (17:02)
[2017-04-16] MEDS: FERROUS SULFATE 325 MG TABLET. PO (17:03)
[2017-04-16] MEDS: WARFARIN 7.5 MG TABLET. PO (17:03)
[2017-04-16] MEDS: KETOROLAC TROMETHAMINE 10 MG TABLET PO (17:03)
[2017-04-16] MEDS: FAMOTIDINE 20 MG TABLET. PO (17:03)
[2017-04-16] MEDS: traZODone 100 MG TABLET. PO (20:40)
[2017-04-16] MEDS: CYCLOBENZAPRINE 10 MG TABLET. PO (20:41)
[2017-04-17] MEDS: KETOROLAC TROMETHAMINE 10 MG TABLET PO ×4 (01:15→18:24)
[2017-04-17] MEDS: IV DEXTROSE 5 %-0.45 % NACL 1,000 ML IV ×3 (01:16→20:44)
[2017-04-17] MEDS: VANCOMYCIN 1 GM in IV DEXTROSE 5% 250 ML IV (03:02)
[2017-04-17 05:45] LABS: INR 1.2 (0.8-1.1); PROTHROMBIN TIME PATIENT 14.3 SEC (11.7-14.0)
[2017-04-17] MEDS ORDERED: MAGNESIUM HYDROXIDE 2,400 MG/30 ML ORAL.SUSP. PO (06:00)
[2017-04-17] MEDS: CARVEDILOL 6.25 MG TABLET. PO ×2 (08:00→18:23)
[2017-04-17] MEDS: TRIAMTERENE/HCTZ 37.5/25MG TABLET. PO (09:00)
[2017-04-17] MEDS ORDERED: NON FORMULARY ITEM (Modafinil (Provigil) 200 MG) PO (09:00)
[2017-04-17] MEDS: DULoxetine HCL 30 MG CAPSULE.DR PO (11:13)
[2017-04-17] MEDS: HYDROmorphone 4 MG TABLET PO ×2 (11:13→21:26)
[2017-04-17] MEDS: CITALOPRAM 20 MG TABLET. PO (11:14)
[2017-04-17] MEDS: FAMOTIDINE 20 MG TABLET. PO (11:14)
[2017-04-17] MEDS: MULTIVITAMIN with MINERAL TABLET. PO (11:14)
[2017-04-17] MEDS: EZETIMIBE 10 MG TABLET. PO (11:16)
[2017-04-17] MEDS: POTASSIUM CHLORIDE 10 MEQ TABLET.ER. PO (11:16)
[2017-04-17] MEDS: FERROUS SULFATE 325 MG TABLET. PO ×2 (11:16→18:23)
[2017-04-17] MEDS: SENNOSIDES/DOCUSATE 8.6/50MG TABLET. PO (11:19)
[2017-04-17] MEDS ORDERED: BISACODYL 10 MG SUPP.RECT. PR (16:00)
[2017-04-17] MEDS: WARFARIN 5 MG TABLET. PO (18:24)
[2017-04-17] MEDS: VANCOMYCIN 1.5 GM in IV DEXTROSE 5 %-0.45 % NACL 500 ML IV (18:28)
[2017-04-17 19:02] LABS: CREATININE 1.3 mg/dL (0.6-1.0)
[2017-04-17 19:02] LABS: GFR 40.9
[2017-04-17] MEDS: VANCOMYCIN PER PHARMACY MC (19:45)
[2017-04-17] MEDS: CYCLOBENZAPRINE 10 MG TABLET. PO (21:26)
[2017-04-17] MEDS: traZODone 100 MG TABLET. PO (21:26)
[2017-04-17] MEDS: MEROPENEM IV Push 1 GM VIAL. IVP (21:27)
[2017-04-17] MEDS ORDERED: MEROPENEM 1 GM in IV NORMAL SALINE 100ML 100 ML IV (22:00)
[2017-04-18] MEDS: KETOROLAC TROMETHAMINE 10 MG TABLET PO ×4 (01:48→18:00)
[2017-04-18 05:26] LABS: ADD MAN DIFF? NO
[2017-04-18 05:34] LABS: BASO % 0 % (0-3); EOS % 0 % (0-3); HEMATOCRIT 33.7 % (36.0-47.0); HEMOGLOBIN 10.9 g/dL (12.0-15.5); LYMPH # 1.1 x10^3/uL (1.0-4.8); LYMPH % 14 % (24-48); MEAN CORPUSCULAR HEMOGLOBIN 27 pg (25-35); MEAN CORPUSCULAR HGB CONC 33 g/dL (31-37); MEAN CORPUSCULAR VOLUME 83 fL (79-100); MONO # 0.6 x10^3/uL (0.0-1.1); MONO % 7 % (0-9); NEUT # 6.3 x10^3uL (1.8-7.7); NEUT % 78 % (31-73); PLATELET COUNT 256 x10^3/uL (140-400); RED BLOOD COUNT 4.04 x10^6/uL (3.50-5.40); RED CELL DISTRIBUTION WIDTH 16.7 % (11.5-14.5)
[2017-04-18 06:03] LABS: ANION GAP 4 (6-14); BLOOD UREA NITROGEN 23 mg/dL (7-20); CARBON DIOXIDE 32 mmol/L (21-32); CHLORIDE 104 mmol/L (98-107); GFR 55.3; GLUCOSE 98 mg/dL (70-99); SODIUM 140 mmol/L (136-145)
[2017-04-18 06:12] LABS: INR 1.8 (0.8-1.1); PROTHROMBIN TIME PATIENT 19.7 SEC (11.7-14.0)
[2017-04-18] MEDS: MEROPENEM IV Push 1 GM VIAL. IVP ×3 (06:20→21:48)
[2017-04-18] MEDS: EZETIMIBE 10 MG TABLET. PO (08:11)
[2017-04-18] MEDS: DULoxetine HCL 30 MG CAPSULE.DR PO (08:11)
[2017-04-18] MEDS: MULTIVITAMIN with MINERAL TABLET. PO (08:11)
[2017-04-18] MEDS: CITALOPRAM 20 MG TABLET. PO (08:12)
[2017-04-18] MEDS: ERGOCALCIFEROL (VITAMIN D2) 50,000 UNIT CAPSULE. PO (08:12)
[2017-04-18] MEDS: FAMOTIDINE 20 MG TABLET. PO (08:12)
[2017-04-18] MEDS: FERROUS SULFATE 325 MG TABLET. PO ×2 (08:12→16:49)
[2017-04-18] MEDS: SENNOSIDES/DOCUSATE 8.6/50MG TABLET. PO (08:13)
[2017-04-18] MEDS: TRIAMTERENE/HCTZ 37.5/25MG TABLET. PO (08:13)
[2017-04-18] MEDS: POTASSIUM CHLORIDE 10 MEQ TABLET.ER. PO (08:14)
[2017-04-18] MEDS: CARVEDILOL 6.25 MG TABLET. PO ×2 (08:15→16:52)
[2017-04-18] MEDS: CYCLOBENZAPRINE 10 MG TABLET. PO ×2 (08:42→16:51)
[2017-04-18] MEDS: HYDROmorphone 4 MG TABLET PO ×2 (08:42→16:50)
[2017-04-18] MEDS: WARFARIN 2 MG TABLET. PO (16:51)
[2017-04-18] MEDS ORDERED: VANCOMYCIN 1.25 GM in IV DEXTROSE 5 %-0.45 % NACL 500 ML IV (18:30)
[2017-04-18] MEDS: LACTOBACILLUS RHAMNOSUS GG 1 CAPSULE. PO (21:47)
[2017-04-18] MEDS: traZODone 100 MG TABLET. PO (21:48)
[2017-04-19] MEDS: KETOROLAC TROMETHAMINE 10 MG TABLET PO ×4 (00:37→16:50)
[2017-04-19] MEDS: MEROPENEM IV Push 1 GM VIAL. IVP ×3 (05:27→21:32)
[2017-04-19 07:30] LABS: HEMATOCRIT 33.9 % (36.0-47.0); HEMOGLOBIN 11.1 g/dL (12.0-15.5); MEAN CORPUSCULAR HGB CONC 33 g/dL (31-37)
[2017-04-19 07:40] LABS: INR 1.7 (0.8-1.1); PROTHROMBIN TIME PATIENT 18.5 SEC (11.7-14.0)
[2017-04-19] MEDS: FERROUS SULFATE 325 MG TABLET. PO ×2 (08:48→16:49)
[2017-04-19] MEDS: POTASSIUM CHLORIDE 10 MEQ TABLET.ER. PO (08:49)
[2017-04-19] MEDS: DULoxetine HCL 30 MG CAPSULE.DR PO (08:49)
[2017-04-19] MEDS: CITALOPRAM 20 MG TABLET. PO (08:49)
[2017-04-19] MEDS: LACTOBACILLUS RHAMNOSUS GG 1 CAPSULE. PO ×2 (08:49→21:31)
[2017-04-19] MEDS: SENNOSIDES/DOCUSATE 8.6/50MG TABLET. PO (08:49)
[2017-04-19] MEDS: MULTIVITAMIN with MINERAL TABLET. PO (08:49)
[2017-04-19] MEDS: CARVEDILOL 6.25 MG TABLET. PO ×2 (08:49→16:49)
[2017-04-19] MEDS: FAMOTIDINE 20 MG TABLET. PO (08:50)
[2017-04-19] MEDS: TRIAMTERENE/HCTZ 37.5/25MG TABLET. PO (08:50)
[2017-04-19] MEDS: EZETIMIBE 10 MG TABLET. PO (08:50)
[2017-04-19] MEDS: WARFARIN 4 MG TABLET. PO (16:49)
[2017-04-19] MEDS: HYDROmorphone 4 MG TABLET PO (18:06)
[2017-04-19] MEDS: traZODone 100 MG TABLET. PO (21:30)
[2017-04-20] MEDS: KETOROLAC TROMETHAMINE 10 MG TABLET PO ×4 (00:53→17:51)
[2017-04-20 05:51] LABS: HEMATOCRIT 35.3 % (36.0-47.0); HEMOGLOBIN 11.5 g/dL (12.0-15.5); MEAN CORPUSCULAR HGB CONC 33 g/dL (31-37)
[2017-04-20 05:58] LABS: INR 1.5 (0.8-1.1); PROTHROMBIN TIME PATIENT 17.1 SEC (11.7-14.0)
[2017-04-20] MEDS: MEROPENEM IV Push 1 GM VIAL. IVP (06:43)
[2017-04-20] MEDS: CITALOPRAM 20 MG TABLET. PO (08:15)
[2017-04-20] MEDS: LACTOBACILLUS RHAMNOSUS GG 1 CAPSULE. PO ×2 (08:16→21:25)
[2017-04-20] MEDS: FAMOTIDINE 20 MG TABLET. PO (08:16)
[2017-04-20] MEDS: POTASSIUM CHLORIDE 10 MEQ TABLET.ER. PO (08:16)
[2017-04-20] MEDS: FERROUS SULFATE 325 MG TABLET. PO ×2 (08:16→16:46)
[2017-04-20] MEDS: CARVEDILOL 6.25 MG TABLET. PO ×2 (08:18→16:46)
[2017-04-20] MEDS: MULTIVITAMIN with MINERAL TABLET. PO (08:33)
[2017-04-20] MEDS: TRIAMTERENE/HCTZ 37.5/25MG TABLET. PO (08:33)
[2017-04-20] MEDS: EZETIMIBE 10 MG TABLET. PO (08:34)
[2017-04-20] MEDS: SENNOSIDES/DOCUSATE 8.6/50MG TABLET. PO (08:34)
[2017-04-20] MEDS: DULoxetine HCL 30 MG CAPSULE.DR PO (08:34)
[2017-04-20] MEDS: FLU VACC QS2017-18 (36MOS+)/PF 0.5 ML SYRINGE. VAX IM (08:38)
[2017-04-20] MEDS: PIPERACILLIN/TAZOBACTAM 3.375 GM in IV NORMAL SALINE 50ML 50 ML IV ×2 (11:28→17:51)
[2017-04-20] MEDS ORDERED: 0.9 % SODIUM CHLORIDE 10 ML DISP.SYRIN. IV ×2 (13:15)
[2017-04-20] MEDS: HYDROmorphone 4 MG TABLET PO (14:50)
[2017-04-20] MEDS: WARFARIN 4 MG TABLET. PO (16:08)
[2017-04-20] MEDS: traZODone 100 MG TABLET. PO (21:25)
[2017-04-21] MEDS: KETOROLAC TROMETHAMINE 10 MG TABLET PO ×3 (00:24→16:17)
[2017-04-21] MEDS: PIPERACILLIN/TAZOBACTAM 3.375 GM in IV NORMAL SALINE 50ML 50 ML IV ×2 (00:25→05:36)
[2017-04-21 07:15] LABS: INR 1.6 (0.8-1.1); PROTHROMBIN TIME PATIENT 17.8 SEC (11.7-14.0)
[2017-04-21] MEDS ORDERED: cefTRIAXone SODIUM 2 GM in IV DEXTROSE 5% 100 ML IV (09:45)
[2017-04-21 09:56] LABS: ANION GAP 3 (6-14); BLOOD UREA NITROGEN 21 mg/dL (7-20); CALCIUM 8.6 mg/dL (8.5-10.1); CARBON DIOXIDE 36 mmol/L (21-32); CHLORIDE 102 mmol/L (98-107); GFR 55.3; GLUCOSE 104 mg/dL (70-99); POTASSIUM 4.5 mmol/L (3.5-5.1); SODIUM 141 mmol/L (136-145)
[2017-04-21] MEDS: FAMOTIDINE 20 MG TABLET. PO (10:17)
[2017-04-21] MEDS: DULoxetine HCL 30 MG CAPSULE.DR PO (10:17)
[2017-04-21] MEDS: MULTIVITAMIN with MINERAL TABLET. PO (10:17)
[2017-04-21] MEDS: HYDROmorphone 4 MG TABLET PO ×3 (10:18→20:46)
[2017-04-21] MEDS: TRIAMTERENE/HCTZ 37.5/25MG TABLET. PO (10:19)
[2017-04-21] MEDS: POTASSIUM CHLORIDE 10 MEQ TABLET.ER. PO (10:19)
[2017-04-21] MEDS: LACTOBACILLUS RHAMNOSUS GG 1 CAPSULE. PO ×2 (10:19→20:45)
[2017-04-21] MEDS: CITALOPRAM 20 MG TABLET. PO (10:19)
[2017-04-21] MEDS: FERROUS SULFATE 325 MG TABLET. PO ×2 (10:19→17:28)
[2017-04-21] MEDS: EZETIMIBE 10 MG TABLET. PO (10:19)
[2017-04-21] MEDS: CARVEDILOL 6.25 MG TABLET. PO ×2 (10:20→17:28)
[2017-04-21] MEDS: SENNOSIDES/DOCUSATE 8.6/50MG TABLET. PO (10:20)
[2017-04-21] MEDS: AMPICILLIN SODIUM IV Push 1 GM VIAL. IVP ×2 (10:25→17:28)
[2017-04-21] MEDS: cefTRIAXone IV Push 2 GM VIAL. IVP (10:27)
[2017-04-21] MEDS ORDERED: AMPICILLIN SODIUM 1 GM in IV NORMAL SALINE 50ML 50 ML IV (12:00)
[2017-04-21] MEDS: WARFARIN 3 MG TABLET. PO (16:17)
[2017-04-21] MEDS: CYCLOBENZAPRINE 10 MG TABLET. PO (20:45)
[2017-04-21] MEDS: traZODone 100 MG TABLET. PO (20:46)
[2017-04-22] MEDS: AMPICILLIN SODIUM IV Push 1 GM VIAL. IVP ×3 (00:34→14:59)
[2017-04-22] MEDS: HYDROmorphone 4 MG TABLET PO ×4 (00:34→15:00)
[2017-04-22] MEDS: CYCLOBENZAPRINE 10 MG TABLET. PO ×2 (06:12→15:00)
[2017-04-22] MEDS: CITALOPRAM 20 MG TABLET. PO (10:31)
[2017-04-22] MEDS: LACTOBACILLUS RHAMNOSUS GG 1 CAPSULE. PO (10:31)
[2017-04-22] MEDS: FAMOTIDINE 20 MG TABLET. PO (10:31)
[2017-04-22] MEDS: DULoxetine HCL 30 MG CAPSULE.DR PO (10:31)
[2017-04-22] MEDS: MULTIVITAMIN with MINERAL TABLET. PO (10:31)
[2017-04-22] MEDS: TRIAMTERENE/HCTZ 37.5/25MG TABLET. PO (10:31)
[2017-04-22] MEDS: SENNOSIDES/DOCUSATE 8.6/50MG TABLET. PO (10:31)
[2017-04-22] MEDS: FERROUS SULFATE 325 MG TABLET. PO ×2 (10:32→15:04)
[2017-04-22] MEDS: POTASSIUM CHLORIDE 10 MEQ TABLET.ER. PO (10:32)
[2017-04-22] MEDS: CARVEDILOL 6.25 MG TABLET. PO ×2 (10:33→14:59)
[2017-04-22] MEDS: EZETIMIBE 10 MG TABLET. PO (10:34)
[2017-04-22] MEDS: cefTRIAXone IV Push 2 GM VIAL. IVP (11:00)
[2017-04-22] MEDS: WARFARIN 4 MG TABLET. PO (15:00)
== END 2017-04-22 15:55 | DRG 464 ==
LOC: OPSVCIP 10:33 → 4 NORTH 16:18
PROC: 0SPC0JZ Removal of Synthetic Substitute from Right Knee Joint, Open Approach (ICD-10-PCS; principal; 2017-04-16 11:59)
PROC: 0SHC08Z Insertion of Spacer into Right Knee Joint, Open Approach (ICD-10-PCS; 2017-04-16 11:59)
PROC: 02HV33Z Insertion of Infusion Device into Superior Vena Cava, Percutaneous Approach (ICD-10-PCS; 2017-04-16 11:59)
PROC: B548ZZA Ultrasonography of Superior Vena Cava, Guidance (ICD-10-PCS; 2017-04-16 11:59)
PROC: 0SBF0ZZ Excision of Right Ankle Joint, Open Approach (ICD-10-PCS; 2017-04-16 11:59)
DX: T84.53XA Infection and inflammatory reaction due to internal right knee prosthesis, initial encounter (principal); D62 Acute posthemorrhagic anemia; E66.9 Obesity, unspecified; E78.00 Pure hypercholesterolemia, unspecified; I10 Essential (primary) hypertension; K21.9 Gastro-esophageal reflux disease without esophagitis; Z81.8 Family history of other mental and behavioral disorders; Z82.49 Family history of ischemic heart disease and other diseases of the circulatory system; Z85.528 Personal history of other malignant neoplasm of kidney; Z86.14 Personal history of Methicillin resistant Staphylococcus aureus infection; Z87.891 Personal history of nicotine dependence; Z88.1 Allergy status to other antibiotic agents; Z90.5 Acquired absence of kidney; Z90.710 Acquired absence of both cervix and uterus; Z96.651 Presence of right artificial knee joint; Z68.23 Body mass index [BMI] 23.0-23.9, adult; F32.9 Major depressive disorder, single episode, unspecified; F41.9 Anxiety disorder, unspecified; M19.90 Unspecified osteoarthritis, unspecified site; G89.29 Other chronic pain; Y83.1 Surgical operation with implant of artificial internal device as the cause of abnormal reaction of the patient, or of later complication, without mention of misadventure at the time of the procedure
CPT/HCPCS: 36415; 36569; 71046; 80048; 81001; 82040; 82565; 82962; 83036; 85014; 85018; 85025; 85610; 85651; 85730; 86850; 86900; 86901; 87071; 87075; 87205; 87641; 90686; 93005; 97110-GP; 97116-GP; 97162-GP; 97166-GO; 97530-GP; 97535-GO; C1713; C1894; J0171; J0290; J0696; J1100; J1885; J2185; J2250; J2270; J2405; J2543; J2704; J2710; J2795; J3010; J3370; J3490; J7030; J7120; S0028

== ENCOUNTER → 2017-07-01 | Outpatient (CLI) | payer MEDICARE ==
[2017-07-01 15:01] LABS: BILIRUBIN,URINE NEGATIVE (NEG); CLARITY,URINE CLEAR; COLOR,URINE YELLOW; GLUCOSE,URINE NEGATIVE (NEG); NITRITE,URINE NEGATIVE (NEG); PH,URINE 7.5; PROTEIN,URINE NEGATIVE (NEG-TRACE)
[2017-07-01 15:17] LABS: BACTERIA,URINE 0 /HPF (0-FEW); RBC,URINE 0 /HPF (0-2); SQUAMOUS EPITHELIAL CELL,UR FEW /LPF; WBC,URINE 0 /HPF (0-4)
[2017-07-01 16:38] LABS: ADD MAN DIFF? NO
[2017-07-01 16:48] LABS: BASO # 0.1 x10^3/uL (0.0-0.2); BASO % 1 % (0-3); EOS # 0.7 x10^3/uL (0.0-0.7); EOS % 9 % (0-3); HEMATOCRIT 38.5 % (36.0-47.0); LYMPH # 1.8 x10^3/uL (1.0-4.8); LYMPH % 23 % (24-48); MEAN CORPUSCULAR HEMOGLOBIN 30 pg (25-35); MEAN CORPUSCULAR HGB CONC 34 g/dL (31-37); MEAN CORPUSCULAR VOLUME 88 fL (79-100); MONO # 0.4 x10^3/uL (0.0-1.1); MONO % 5 % (0-9); NEUT # 4.9 x10^3uL (1.8-7.7); NEUT % 62 % (31-73); PLATELET COUNT 292 x10^3/uL (140-400); RED CELL DISTRIBUTION WIDTH 15.2 % (11.5-14.5)
[2017-07-01 16:51] LABS: PARTIAL THROMBOPLASTIN TIME 26 SEC (24-38); PROTHROMBIN TIME PATIENT 12.6 SEC (11.7-14.0)
[2017-07-01 17:02] LABS: ALBUMIN 3.4 g/dL (3.4-5.0); ANION GAP 4 (6-14); BLOOD UREA NITROGEN 19 mg/dL (7-20); CARBON DIOXIDE 35 mmol/L (21-32); CHLORIDE 100 mmol/L (98-107); GFR 55.3; GLUCOSE 99 mg/dL (70-99); POTASSIUM 3.6 mmol/L (3.5-5.1); SODIUM 139 mmol/L (136-145)
[2017-07-01 17:59] LABS: SEDIMENTATION RATE 7 (0-25)
[2017-07-02 07:37] LABS: HEMOGLOBIN A1C 5.7 % (4.8-5.6)
[2017-07-02 11:30] LABS: MRSA BY PCR Negative (Negative)
== END | disposition home or self-care (01) ==
LOC: SURGPAT 14:14
DX: T84.53XA Infection and inflammatory reaction due to internal right knee prosthesis, initial encounter (principal); I10 Essential (primary) hypertension; E11.40 Type 2 diabetes mellitus with diabetic neuropathy, unspecified
CPT/HCPCS: 36415; 80048; 81001; 82040; 83036; 85025; 85610; 85651; 85730; 87641; 93005

== ENCOUNTER 2017-07-06 12:06 | Inpatient (IN) | payer MEDICARE ==
[~2017-07-06 12:06] MED LIST changes: +CLINDAMYCIN 900MG PREMIX 50 ML IV; +MORPHINE SULFATE 4 MG/ML DISP.SYRIN. IV; +fentaNYL PF VIAL 100 MCG/2 ML VIAL IV
[2017-07-06] MEDS: MELOXICAM 7.5 MG TABLET PO (13:12)
[2017-07-06] MEDS: HYDROcodone/APAP 7.5/325MG 1 TAB TABLET PO (13:12)
[2017-07-06] MEDS: IV RINGERS,LACTATED 1000ML 1,000 ML IV (13:23)
[2017-07-06 14:03] LABS: INR 1.1 (0.8-1.1); PROTHROMBIN TIME PATIENT 13.2 SEC (11.7-14.0)
[2017-07-06] MEDS ORDERED: ROCURONIUM 50 MG/5 ML VIAL. (14:11)
[2017-07-06] MEDS ORDERED: ONDANSETRON PF 4 MG/2 ML VIAL. (14:12)
[2017-07-06] MEDS ORDERED: DESFLURANE > 120 MINUTES IH (14:12)
[2017-07-06] MEDS ORDERED: fentaNYL PF VIAL 100 MCG/2 ML VIAL ×2 (14:12→16:58)
[2017-07-06] MEDS ORDERED: PROPOFOL 20 ML IV (14:12)
[2017-07-06] MEDS ORDERED: DEXAMETHASONE SOD PHOS 20 MG/5 ML VIAL. (14:12)
[2017-07-06] MEDS ORDERED: PHENYLEPHRINE in 0.9% NACL PF 1 MG/10 ML SYRINGE. IV (14:13)
[2017-07-06] MEDS ORDERED: LIDOCAINE 2% PF Vial for OR 5 ML VIAL. (15:29)
[2017-07-06] MEDS ORDERED: ZOLPIDEM 5 MG TABLET. PO (16:00)
[2017-07-06] MEDS ORDERED: CYCLOBENZAPRINE 10 MG TABLET. PO (16:00)
[2017-07-06] MEDS ORDERED: CALCIUM CARBONATE 500 MG TAB.CHEW PO (16:00)
[2017-07-06] MEDS ORDERED: diphenhydrAMINE 50 MG/ML VIAL IV (16:00)
[2017-07-06] MEDS ORDERED: DEXTROSE 50% 25 GM / 50ML DISP.SYRIN. IV (16:00)
[2017-07-06] MEDS ORDERED: ACETAMINOPHEN 325 MG TABLET. PO (16:00)
[2017-07-06] MEDS ORDERED: 0.9 % SODIUM CHLORIDE 10 ML DISP.SYRIN. IV (16:00)
[2017-07-06] MEDS ORDERED: fentaNYL PF VIAL 100 MCG/2 ML VIAL IV ×2 (16:00)
[2017-07-06] MEDS: CLINDAMYCIN 900MG PREMIX 50 ML IV ×2 (16:20→21:55)
[2017-07-06] MEDS: MORPHINE SULFATE 5 MG, KETOROLAC 30 MG, ROPIVacaine 0.5% PF 60 ML, EPINEPHrine 0.5 MG i... INT ART (16:38)
[2017-07-06] MEDS ORDERED: ESMOLOL 100 MG/10 ML VIAL. IV (16:52)
[2017-07-06] MEDS: CARVEDILOL 6.25 MG TABLET. PO (17:00)
[2017-07-06] MEDS ORDERED: LABETALOL 20 MG/4 ML DISP.SYRIN. (17:20)
[2017-07-06] MEDS ORDERED: SEVOFLURANE > 120 MINUTES. IH (17:51)
[2017-07-06] MEDS: KETOROLAC TROMETHAMINE 10 MG TABLET PO (18:00)
[2017-07-06] MEDS: traZODone 100 MG TABLET. PO (21:00)
[2017-07-06] MEDS: DULoxetine HCL 30 MG CAPSULE.DR PO (21:00)
[2017-07-06] MEDS: FAMOTIDINE 20 MG TABLET. PO (21:00)
[2017-07-06] MEDS ORDERED: CLINDAMYCIN 900MG PREMIX 50 ML IV (22:00)
[2017-07-06] MEDS: IV DEXTROSE 5 %-0.45 % NACL 1,000 ML IV (23:46)
[2017-07-07] MEDS: WARFARIN 7.5 MG TABLET. PO ×2 (02:47→02:48)
[2017-07-07] MEDS: IV DEXTROSE 5 %-0.45 % NACL 1,000 ML IV ×3 (04:41→18:01)
[2017-07-07] MEDS: CLINDAMYCIN 900MG PREMIX 50 ML IV ×3 (04:41→15:43)
[2017-07-07] MEDS: KETOROLAC TROMETHAMINE 10 MG TABLET PO ×5 (05:34→23:57)
[2017-07-07] MEDS: HYDROmorphone 2 MG TABLET PO (05:35)
[2017-07-07 05:58] LABS: HEMATOCRIT 29.6 % (36.0-47.0); HEMOGLOBIN 9.9 g/dL (12.0-15.5); MEAN CORPUSCULAR HGB CONC 34 g/dL (31-37)
[2017-07-07] MEDS ORDERED: MAGNESIUM HYDROXIDE 2,400 MG/30 ML ORAL.SUSP. PO (06:00)
[2017-07-07 06:05] LABS: INR 1.1 (0.8-1.1); PROTHROMBIN TIME PATIENT 13.8 SEC (11.7-14.0)
[2017-07-07] MEDS: CARVEDILOL 6.25 MG TABLET. PO ×2 (08:00→16:19)
[2017-07-07] MEDS: EZETIMIBE 10 MG TABLET. PO (08:31)
[2017-07-07] MEDS: FERROUS SULFATE 325 MG TABLET. PO ×2 (08:31→16:19)
[2017-07-07] MEDS: DULoxetine HCL 30 MG CAPSULE.DR PO ×2 (08:31→21:10)
[2017-07-07] MEDS: POTASSIUM CHLORIDE 10 MEQ TABLET.ER. PO (08:31)
[2017-07-07] MEDS: CITALOPRAM 20 MG TABLET. PO (08:31)
[2017-07-07] MEDS: SENNOSIDES/DOCUSATE 8.6/50MG TABLET. PO (08:31)
[2017-07-07] MEDS: MULTIVITAMIN with MINERAL TABLET. PO (08:32)
[2017-07-07] MEDS: TRIAMTERENE/HCTZ 37.5/25MG TABLET. PO (08:32)
[2017-07-07] MEDS ORDERED: NON FORMULARY ITEM (Modafinil (Provigil) 200 MG) PO (09:00)
[2017-07-07] MEDS: PROCHLORPERAZINE 10 MG/2 ML VIAL. IV (09:07)
[2017-07-07] MEDS ORDERED: BISACODYL 10 MG SUPP.RECT. PR (16:00)
[2017-07-07] MEDS: WARFARIN 5 MG TABLET. PO (16:03)
[2017-07-07] MEDS: HYDROmorphone 4 MG TABLET PO (16:10)
[2017-07-07] MEDS: traZODone 100 MG TABLET. PO (21:10)
[2017-07-07] MEDS: FAMOTIDINE 20 MG TABLET. PO (21:10)
[2017-07-08] MEDS: IV DEXTROSE 5 %-0.45 % NACL 1,000 ML IV ×2 (00:23→09:21)
[2017-07-08] MEDS: HYDROmorphone 4 MG TABLET PO ×2 (04:46→16:55)
[2017-07-08 06:12] LABS: INR 1.5 (0.8-1.1); PROTHROMBIN TIME PATIENT 17.7 SEC (11.7-14.0)
[2017-07-08] MEDS: KETOROLAC TROMETHAMINE 10 MG TABLET PO ×3 (06:15→17:46)
[2017-07-08] MEDS: CARVEDILOL 6.25 MG TABLET. PO ×2 (08:00→17:00)
[2017-07-08] MEDS: FERROUS SULFATE 325 MG TABLET. PO ×2 (08:03→16:49)
[2017-07-08] MEDS: DULoxetine HCL 30 MG CAPSULE.DR PO ×2 (08:03→20:48)
[2017-07-08] MEDS: MULTIVITAMIN with MINERAL TABLET. PO (08:03)
[2017-07-08] MEDS: POTASSIUM CHLORIDE 10 MEQ TABLET.ER. PO (08:04)
[2017-07-08] MEDS: SENNOSIDES/DOCUSATE 8.6/50MG TABLET. PO (08:04)
[2017-07-08] MEDS: EZETIMIBE 10 MG TABLET. PO (08:04)
[2017-07-08] MEDS: CITALOPRAM 20 MG TABLET. PO (08:04)
[2017-07-08] MEDS: TRIAMTERENE/HCTZ 37.5/25MG TABLET. PO (08:12)
[2017-07-08 10:57] LABS: ADD MAN DIFF? NO
[2017-07-08 11:20] LABS: BASO % 1 % (0-3); EOS # 0.2 x10^3/uL (0.0-0.7); EOS % 3 % (0-3); HEMATOCRIT 22.2 % (36.0-47.0); HEMOGLOBIN 7.6 g/dL (12.0-15.5); LYMPH # 1.3 x10^3/uL (1.0-4.8); LYMPH % 18 % (24-48); MEAN CORPUSCULAR HEMOGLOBIN 30 pg (25-35); MEAN CORPUSCULAR HGB CONC 34 g/dL (31-37); MEAN CORPUSCULAR VOLUME 89 fL (79-100); MONO # 0.4 x10^3/uL (0.0-1.1); MONO % 6 % (0-9); NEUT # 5.2 x10^3uL (1.8-7.7); NEUT % 72 % (31-73); PLATELET COUNT 183 x10^3/uL (140-400); RED CELL DISTRIBUTION WIDTH 15.1 % (11.5-14.5); WHITE BLOOD COUNT 7.3 x10^3/uL (4.0-11.0)
[2017-07-08] MEDS: IV NORMAL SALINE 1000ML BAG 1,000 ML IV (13:33)
[2017-07-08] MEDS: WARFARIN 3 MG TABLET. PO (16:57)
[2017-07-08 20:03] LABS: IMMEDIATE SPIN CROSSMATCH 1 2
[2017-07-08] MEDS: traZODone 100 MG TABLET. PO (20:48)
[2017-07-08] MEDS: FAMOTIDINE 20 MG TABLET. PO (20:48)
[2017-07-09] MEDS: IV DEXTROSE 5 %-0.45 % NACL 1,000 ML IV ×2 (00:02→07:17)
[2017-07-09] MEDS: KETOROLAC TROMETHAMINE 10 MG TABLET PO ×3 (00:02→12:00)
[2017-07-09] MEDS: HYDROmorphone 4 MG TABLET PO ×2 (01:57→13:35)
[2017-07-09 06:47] LABS: INR 1.5 (0.8-1.1); PROTHROMBIN TIME PATIENT 17.1 SEC (11.7-14.0)
[2017-07-09 07:05] LABS: ADD MAN DIFF? NO
[2017-07-09 07:11] LABS: BASO % 1 % (0-3); EOS # 0.6 x10^3/uL (0.0-0.7); EOS % 8 % (0-3); HEMATOCRIT 25.6 % (36.0-47.0); HEMOGLOBIN 8.7 g/dL (12.0-15.5); LYMPH # 1.2 x10^3/uL (1.0-4.8); LYMPH % 18 % (24-48); MEAN CORPUSCULAR HEMOGLOBIN 29 pg (25-35); MEAN CORPUSCULAR HGB CONC 34 g/dL (31-37); MEAN CORPUSCULAR VOLUME 86 fL (79-100); MONO # 0.4 x10^3/uL (0.0-1.1); MONO % 6 % (0-9); NEUT # 4.6 x10^3uL (1.8-7.7); NEUT % 67 % (31-73); PLATELET COUNT 160 x10^3/uL (140-400); RED BLOOD COUNT 2.98 x10^6/uL (3.50-5.40); RED CELL DISTRIBUTION WIDTH 16.2 % (11.5-14.5); WHITE BLOOD COUNT 6.8 x10^3/uL (4.0-11.0)
[2017-07-09] MEDS: FERROUS SULFATE 325 MG TABLET. PO (08:00)
[2017-07-09] MEDS: CARVEDILOL 6.25 MG TABLET. PO (08:00)
[2017-07-09] MEDS ORDERED: POLYETHYLENE GLYCOL 3350 17 GM PACKET. PO (08:30)
[2017-07-09] MEDS ORDERED: DOCUSATE SODIUM 100 MG CAPSULE. PO (08:30)
[2017-07-09] MEDS: EZETIMIBE 10 MG TABLET. PO (09:00)
[2017-07-09] MEDS: CITALOPRAM 20 MG TABLET. PO (09:00)
[2017-07-09] MEDS: POTASSIUM CHLORIDE 10 MEQ TABLET.ER. PO (09:00)
[2017-07-09] MEDS: SENNOSIDES/DOCUSATE 8.6/50MG TABLET. PO (09:00)
[2017-07-09] MEDS: MULTIVITAMIN with MINERAL TABLET. PO (09:00)
[2017-07-09] MEDS: DULoxetine HCL 30 MG CAPSULE.DR PO (09:00)
[2017-07-09] MEDS: TRIAMTERENE/HCTZ 37.5/25MG TABLET. PO (09:00)
[2017-07-09] MEDS: WARFARIN 5 MG TABLET. PO (16:00)
[2017-07-09] MEDS: HYDROmorphone 2 MG TABLET PO (16:45)
== END 2017-07-09 18:00 | DRG 467 ==
LOC: OPSVCIP 12:06 → 4 SOUTHEST 22:35
PROC: 0SPC08Z Removal of Spacer from Right Knee Joint, Open Approach (ICD-10-PCS; principal; 2017-07-06 15:55)
PROC: 0QSB04Z Reposition Right Lower Femur with Internal Fixation Device, Open Approach (ICD-10-PCS; 2017-07-06 15:55)
PROC: 0SRC06A Replacement of Right Knee Joint with Oxidized Zirconium on Polyethylene Synthetic Substitute, Uncemented, Open Approach (ICD-10-PCS; 2017-07-06 15:55)
PROC: 30233N1 Transfusion of Nonautologous Red Blood Cells into Peripheral Vein, Percutaneous Approach (ICD-10-PCS; 2017-07-06 15:55)
DX: Z47.1 Aftercare following joint replacement surgery (principal); S72.409A Unspecified fracture of lower end of unspecified femur, initial encounter for closed fracture; Z96.651 Presence of right artificial knee joint; D64.9 Anemia, unspecified; F41.9 Anxiety disorder, unspecified; E78.00 Pure hypercholesterolemia, unspecified; K21.9 Gastro-esophageal reflux disease without esophagitis; F17.210 Nicotine dependence, cigarettes, uncomplicated; Z86.718 Personal history of other venous thrombosis and embolism; Z88.1 Allergy status to other antibiotic agents; Z88.5 Allergy status to narcotic agent; Z88.2 Allergy status to sulfonamides; Z88.8 Allergy status to other drugs, medicaments and biological substances; Z98.1 Arthrodesis status; Z90.710 Acquired absence of both cervix and uterus; Z82.49 Family history of ischemic heart disease and other diseases of the circulatory system
CPT/HCPCS: 36415; 73560; 76001; 85014; 85018; 85025; 85610; 86850; 86900; 86901; 86920; 97150-GP; 97162-GP; 97166-GO; 97530-GP; 97535-GO; C1713; J0171; J0780; J1100; J1885; J2270; J2370; J2405; J2704; J2795; J3010; J3490; J7030; J7120; P9016

== ENCOUNTER → 2018-04-20 | Outpatient (CLI) | payer MEDICARE ==
[2017-07-09 14:45] VITALS: BP 134/59
[~2018-04-20] MED LIST changes: +ALPR0.25 PO; +ARMO250T4 PO; +CARV6.25 PO; -CLINDAMYCIN 900MG PREMIX 50 ML IV; +CYCL10TA2 PO; +DOCU-109 PO; +DULO60CA6 PO; +ERGO500027 PO; +ESCITALOPRAM OX10 MG PO; +EZET10TA18 PO; +GUAI600T47 PO; +HYDR-2761 PO; +HYDR-2765 PO; +HYDR-3135 PO; +HYDR4TAB45 PO; +IBUP-1060 PO; +IBUP200T77 PO; +LEXAPRO20 MG PO; +LEXAPRO5 MG PO; -LIDOCAINE 1% PF 2 ML VIAL. ID; +MELO7.5T5 PO; +MODA100T26 PO; -MORPHINE SULFATE 4 MG/ML DISP.SYRIN. IV; +OMEG1CAP38 PO; -ONDANSETRON PF 4 MG/2 ML VIAL. IV; +POTA10TA12 PO; -PROCHLORPERAZINE 10 MG/2 ML VIAL. IV; +RANI300C PO; +RANI300T PO; +TRAZ-86 PO; +TRIA1CAP13 PO; +TRIA1TAB5 PO; +WARF-78 PO; -fentaNYL PF VIAL 100 MCG/2 ML VIAL IV
--- NOTE | 2018-04-20 10:24 | RAD ---
Examination: 3 views of the right knee HISTORY: History of fall, pain COMPARISON: 08/23/2017 Findings/ impression: Total knee arthroplasty changes in normal alignment. Plate and screw fixation of the medial distal femur similar to prior exam. Small knee joint effusion. Fragmented /fractured appearance of the patella again identified with the superior fragmented portion of the patella appears more collapsed compared to prior exam. Mild soft tissue swelling identified about the patella could be secondary to soft tissue injury. On the frontal view of the left knee, there is a moderate degenerative changes medial compartment and mild degenerative changes lateral compartment of the left knee. Electronically signed by: Jovanny Magdaleno MD (04/20/2018 10:19 AM) [facility]
[2018-04-20 19:51] LABS: BF CLARITY TURBID; BF COLOR RED; BF MON % 1 %; BF PMN % 99 %; BF RBC COUNT 39000 /cmm (Not Established); BF SOURCE SYNOVIAL
[2018-04-20 19:53] LABS: BF WBC COUNT 17000 /cmm (Not Established)
== END | disposition home or self-care (01) ==
LOC: PMGORTHO 07:57
PROVIDERS: ATTEND Orthopaedic Surgery
DX: Z47.33 Aftercare following explantation of knee joint prosthesis (principal); M25.461 Effusion, right knee; Z96.651 Presence of right artificial knee joint
CPT/HCPCS: 87071; 87075; 89050

== ENCOUNTER → 2018-05-10 | Outpatient (CLI) | payer MEDICARE ==
[2017-07-09 14:45] VITALS: BP 134/59
[~2018-05-10] MED LIST changes: +APIX2.5T PO; +CIPR250T30 PO; +HYDR4TAB PO; +LINE600T PO
[2018-05-10 13:54] LABS: BILIRUBIN,URINE NEGATIVE (NEG); CLARITY,URINE CLEAR; COLOR,URINE YELLOW; NITRITE,URINE NEGATIVE (NEG); PH,URINE 7.5; PROTEIN,URINE NEGATIVE (NEG-TRACE); UROBILINOGEN,URINE 0.2 mg/dL (0.2 mg/dL)
[2018-05-10 14:08] LABS: BACTERIA,URINE FEW /HPF (0-FEW); RBC,URINE 0 /HPF (0-2); SQUAMOUS EPITHELIAL CELL,UR MOD /LPF; WBC,URINE 0 /HPF (0-4)
[2018-05-10 14:34] LABS: BASO # 0.1 x10^3/uL (0.0-0.2); BASO % 1 % (0-3); EOS # 0.3 x10^3/uL (0.0-0.7); EOS % 4 % (0-3); HEMATOCRIT 41.6 % (36.0-47.0); HEMOGLOBIN 13.7 g/dL (12.0-15.5); LYMPH # 1.8 x10^3/uL (1.0-4.8); LYMPH % 23 % (24-48); MEAN CORPUSCULAR HEMOGLOBIN 29 pg (25-35); MEAN CORPUSCULAR HGB CONC 33 g/dL (31-37); MEAN CORPUSCULAR VOLUME 87 fL (79-100); MONO # 0.4 x10^3/uL (0.0-1.1); MONO % 5 % (0-9); NEUT # 5.4 x10^3uL (1.8-7.7); NEUT % 67 % (31-73); PLATELET COUNT 371 x10^3/uL (140-400); RED BLOOD COUNT 4.81 x10^6/uL (3.50-5.40); RED CELL DISTRIBUTION WIDTH 13.6 % (11.5-14.5)
[2018-05-10 14:37] LABS: PROTHROMBIN TIME PATIENT 12.7 SEC (11.7-14.0)
[2018-05-10 14:59] LABS: ALBUMIN 3.6 g/dL (3.4-5.0); CALCIUM 9.5 mg/dL (8.5-10.1); GFR 55.1; POTASSIUM 3.6 mmol/L (3.5-5.1)
--- NOTE | 2018-05-10 15:07 | RAD ---
EXAM: Chest, 2 views. HISTORY: Pain. Preoperative evaluation. COMPARISON: 04/13/2017 FINDINGS: 2 views the chest are obtained. There is no infiltrate, pleural effusion or pneumothorax. The heart is normal in size. There are dorsal column stimulator leads terminating at the mid thoracic level. There is instrumented posterior spinal fusion at the upper lumbar levels. IMPRESSION: No acute pulmonary finding. Electronically signed by: Rosa M Guzmán MD (05/10/2018 3:04 PM) [place] [id number]
== END | disposition home or self-care (01) ==
LOC: SURGPAT 13:26
PROVIDERS: ATTEND Orthopaedic Surgery
DX: M17.11 Unilateral primary osteoarthritis, right knee (principal)
CPT/HCPCS: 36415; 71046; 80048; 81001; 82040; 85025; 85610; 85651; 85730; 87641

== ENCOUNTER 2018-05-17 07:30 | Inpatient (IN) | payer MEDICARE ==
[~2018-05-17] VITALS: Ht 162.6 cm; Wt 100.8 kg
[2018-05-17] VITALS (9 sets, daily range): BP systolic 106–136; BP diastolic 63–74
[~2018-05-17 07:30] MED LIST changes: +ACETAMINOPHEN 500 MG TABLET PO ONE; -APIX2.5T PO; -CIPR250T30 PO; +CLINDAMYCIN 900MG PREMIX 50 ML IV PRN; -HYDR4TAB PO; +IV RINGERS,LACTATED 1000ML 1,000 ML IV SCH; +LIDOCAINE 1% PF 2 ML VIAL. ID PRN; -LINE600T PO; +MELOXICAM 7.5 MG TABLET PO PRN; +MORPHINE SULFATE 5 MG, KETOROLAC 30MG VIAL 30 MG, ROPIVacaine 0.5% PF 60 ML, EPINEPHrin... INT ART ONE; +PROCHLORPERAZINE 10 MG/2 ML VIAL. IV PRN; +fentaNYL PF VIAL 100 MCG/2 ML VIAL IV PRN
[2018-05-17] MEDS ORDERED: MIDAZOLAM HCL/PF 2 MG/2 ML VIAL. ONE (14:06)
[2018-05-17] MEDS ORDERED: LIDOCAINE 2% PF 5 ML VIAL. ONE (14:06)
[2018-05-17] MEDS ORDERED: fentaNYL PF VIAL 100 MCG/2 ML VIAL ONE (14:06)
[2018-05-17] MEDS ORDERED: PROPOFOL 20 ML IV ONE (14:06)
[2018-05-17] MEDS ORDERED: FAMOTIDINE 20 MG/2 ML VIAL ONE (15:31)
[2018-05-17] MEDS ORDERED: ONDANSETRON PF 4 MG/2 ML VIAL. ONE (15:32)
[2018-05-17] MEDS ORDERED: DEXAMETHASONE SOD PHOS 20 MG/5 ML VIAL. ONE (15:32)
[2018-05-17] MEDS ORDERED: HYDROmorphone 2 MG/ML VIAL ONE ×2 (15:52→17:44)
[2018-05-17] MEDS ORDERED: METOPROLOL TARTRATE 5 MG/5 ML VIAL. IVP ONE (16:15)
[2018-05-17] MEDS ORDERED: SEVOFLURANE 61 TO 120 MINUTES. IH ONE (16:16)
[2018-05-17] MEDS ORDERED: hydrALAZINE 20 MG/ML VIAL. ONE (16:58)
[2018-05-17] MEDS ORDERED: SEVOFLURANE > 120 MINUTES. IH ONE (17:33)
[2018-05-17] MEDS ORDERED: HYDROmorphone 2 MG/ML VIAL IV PRN ×2 (17:45→18:00)
[2018-05-17] MEDS ORDERED: IV NORMAL SALINE 1000ML BAG 1,000 ML IV SCH (17:48)
[2018-05-17] MEDS: ACETAMINOPHEN 500 MG TABLET PO SCH (18:00)
[2018-05-17] MEDS ORDERED: diphenhydrAMINE 50 MG/ML VIAL IV PRN (18:00)
[2018-05-17] MEDS ORDERED: CALCIUM CARBONATE 500 MG TAB.CHEW PO PRN (18:00)
[2018-05-17] MEDS ORDERED: 0.9 % SODIUM CHLORIDE 10 ML DISP.SYRIN. IV PRN (18:00)
[2018-05-17] MEDS ORDERED: DEXTROSE 50% 25 GM / 50ML DISP.SYRIN. IV PRN (18:00)
--- NOTE | 2018-05-17 18:26 | PDOC4 ---
Operative Note Operative Note Date of surgery: 05/17/2018 Preoperative diagnosis: Comminuted fracture right patella with nonunion Postoperative diagnosis: Same with displacement of patellar component with otherwise well fixed total knee arthroplasty Operative procedure: Extensive patellar reconstruction with allograft Achilles tendon and calcaneus bone block Surgeon: Jono Assist: Charlene Anesthesia: Gen. Estimated blood loss: 50 mL Tourniquet time: 100 minutes complications: None Operative indications: Venecia is a 67-year-old female who previously had a traumatic wound dehiscence following total knee arthroplasty and underwent explantation and revision for infection and subsequently had a periprosthetic fracture. 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 I had gone over with her recommended surgical treatment which could consist of fixation of the components if they are adequate with revision of a patellar component. I suspected that the remaining bone however may be inadequate for this approach. We talked about the possible treatment of papillectomy but the usual weakness that goes along with that and the possibility of reconstruction of her patella with allograft and reinforcement tendon that may if incorporated give her some better function. There is a risk of failure of fixation of the fracture for of the allograft approach. A known complication of weakness with papillectomy along with other medical or anesthetic complications including continued pain and weakness and stability infection among others all her questions were answered she wishes to proceed with surgical evaluation and treatment to help to best improve her function. It is noted that she functionally has weakness and giving way along with her pain functionally what she would have with a papillectomy and her current situation is really intolerable per her desired activities Operative text: Patient was identified procedure verified patient placed in the supine position on the operating table. After adequate amounts of general anesthesia were administered the right lower extremity was prepped and draped in standard sterile fashion with a thigh tourniquet. After timeout was performed patient procedure identified and verified a midline incision was made consistent with her previous incision skin and subcutaneous tissue were dissected away medially line laterally and a single plane to expose her extensor mechanism and comminuted patella fracture. The patellar component was actually flipped backward in the joint and was completely loose there were several bony fragments that were minimally viable and a large but thin bony fragment that was extensively laterally translated that would not allow placement of the component due to its thinness nor due to its lateral alignment. Since based on her feedback a patellectomy me does not seem functionally adequate for her a patellar reconstruction was selected with a Achilles allograft and calcaneal bone block attached. The allograft and bone block were reasonably sized to the patellar component and fit nicely in the trochlear groove. The insertional portion of the Achilles and posterior aspect of the calcaneal bone block was used as a articulating surface the Achilles tendon was split to achieve adequate alignment of the patella. The edges of the patellar tendon quadriceps tendon and retinaculum were carefully debrided back to healthy tissue synovectomy was previously performed back to assure irrigation carried out and the knee joint after initial cultures were taken but infection was not suspected based on appearance. No loosening of the knee components was noted and excellent alignment and stability was observed. Attention was then turned to the patellar reconstruction where after planning incisions were made in the quadriceps tendon medially and laterally and the split ends of the Achilles allograft were placed through these splits with the bone block and tendon well articulating in the trochlear groove and avoiding any bowel or alto malposition of the patella. The split Achilles graft was placed on the medial and lateral aspects of the patella and used to reinforce the retinacular tissue. The patella had previously been drilled diagonally to allow placement of #5 Max braid suture which was woven through the retinaculum and Achilles allograft limbs and placed through the corresponding retinaculum and allograft limb tissue on the opposite side. This was repeated both medially and laterally to balance and alignment and the patella. The Achilles allograft ends were then brought distally to serve as additional reinforcement to the patellar tendon and extensor mechanism and helped guide alignment and position of the patella allograft. The lateralmost limb was woven through a rent in the pes bursa hamstring insertions and after adequate tensioning sewn back on itself. The retinacular tissue was then brought side to side with sutures through the reinforcing Achilles allograft limbs. This captured and controlled the motion of the allograft bone block to prevent it from maltracking or tilting. Tracking was assessed through full extension to allowable easy knee flexion of about 60 and found to be excellent with maintenance of the patellar alignment in the femoral component trochlear groove. I then brought down the medial limb of the allograft and attached it with a Quattro link 4.5 mm peek anchor with a titanium tip placed in the proximal medial tibia. Excellent tensioning and fixation was obtained after the tendon was thoroughly whip stitched for strength with #2 Max braid suture. Again excellent tracking and stability of the patella was noted throughout additional reinforcing #2 Max braid was used to bring the retinacular tissues together as well as the quadriceps split proximally. Excellent repair was carried out really opposing the tissue over the allograft. Thorough irrigation was carried out before and after with normal saline solution under pulse lavage subcutaneous closure in a layered fashion with buried Vicryl suture subcuticular 3-0 Monocryl strata fix was placed followed by a Acticoat and jerome drain. She was placed in an hinged knee brace locked in extension and returned to recovery room in stable condition. Toes were noted be warm pink following deflation of tourniquet after total tourniquet time of about 100 minutes. Charlene carroll was present for the procedure assisted in the prepping draping retraction subcutaneous and skin closure LESLIE PEREZ MD May 17, 2018 18:26
--- NOTE | 2018-05-17 19:15 | NUR ---
Patient admitted to room 456 from PACU. No family at bedside upon admit with patient. Patient drowsy but arouses to name. Patient oriented to room, call light, bed and plan of care. Vital monitoring initiated per protocol. Call light in reach.
--- NOTE | 2018-05-17 19:40 | NUR ---
Admission questions asked. Patient continues to doze off to sleep during questions. RN able to get some questions answered.
[2018-05-17] MEDS ORDERED: CYCLOBENZAPRINE 10 MG TABLET. PO PRN (20:15)
--- NOTE | 2018-05-17 20:21 | NUR ---
Patient awakened yelling out "It hurts so bad!" Patient rated pain 10/10. Dilaudid SIVP given per order. See EMAR.
--- NOTE | 2018-05-17 20:30 | NUR ---
Patient's oxygen level dropped to 67-74% on 2 liters. Oxygen placed at 10 liters face mask and saturation increased to 94%.
--- NOTE | 2018-05-17 20:45 | NUR ---
Patient remains on 10 liters face mask and saturations in 90's Patient very drowsy but arouses to name RR 6/minute. Manager Of Software Development paged.
[2018-05-17] MEDS: FAMOTIDINE 20 MG TABLET. PO SCH (21:00)
[2018-05-17] MEDS: DULoxetine HCL 30 MG CAPSULE.DR PO SCH (21:00)
--- NOTE | 2018-05-17 21:00 | NUR ---
Medical Photographer Arlette Turcios RN on floor to assess patient.
[2018-05-17] MEDS ORDERED: NALOXONE 0.4 MG/ML VIAL. ONE ×2 (21:16→22:00)
--- NOTE | 2018-05-17 21:18 | NUR ---
Page to Dr. De La Cruz's service Dr. Johnson software test automation engineer.
--- NOTE | 2018-05-17 21:25 | NUR ---
Dr. Johnson returned call informed him of RR 6 and other vitals stable, Patient able to arouse to name. Order for Narcan, Bipap, consult hospitalist for Bipap and monitoring. Brush Clearer Surveying request for patient to transfer to [address] [place] [address] (CV) for more monitoring. Dr. Johnson agrees.
--- NOTE | 2018-05-17 21:35 | NUR ---
Marv administered per Emilie De La Garza RN.
--- NOTE | 2018-05-17 21:39 | NUR ---
Respiratory paged for Bipap.
[2018-05-17] MEDS ORDERED: NALOXONE 0.4 MG/ML VIAL. IV PRN (21:45)
--- NOTE | 2018-05-17 21:55 | NUR ---
Call for consult to DR. Ospina's service.
--- NOTE | 2018-05-17 22:04 | NUR ---
Dr. Ospina returned call and updated on patient status and orders from Dr. Johnson. No additional orders received, Dr. Ospina stated "We will see patient. Dr. Ospina informed of room number patient was transferring to.
--- NOTE | 2018-05-17 22:15 | NUR ---
Pt arrived to room 263 via bed at 2230 from rm 456 accompanied by RADHA Polo. She is on 10-L sfm and complains of 10/10 R leg pain although the patient is intermittently dozing throughout assessment. R knee immobilizer braced is in place and ice packs are applied to medial and lateral knee. RT is setting up Bipap, see assessment intervention.
--- NOTE | 2018-05-17 22:15 | NUR ---
Report called to Marcos GARCIA.
--- NOTE | 2018-05-17 22:25 | NUR ---
Security called to meet patient in room 263 to picking machine operator helper valuables.
--- NOTE | 2018-05-17 22:30 | NUR ---
Patient transferred per bed with oxygen at 10liters face mask to room 263 with all belongings Marcos GARCIA in room upon transfer to receive patient . Addendum: 05/18/18 at 0023 by GENE CAMARILLO RN Informed Marcos that security was paged to excelsior picker patient's valuables.
--- NOTE | 2018-05-17 22:39 | RAD ---
KNEE RIGHT 2V History: Post op Comparison: 04/20/2018 Findings: 3 views right knee are submitted. There is overlying brace. There is right total knee arthroplasty and also fixation plate of the medial distal femur. There is now some gas anteriorly near patella. Impression: 1. There is right total knee arthroplasty and distal medial femoral fixation plate as seen previously. There is now some gas in the anterior soft tissues near patella. Electronically signed by: Ketan Alvarenga MD (05/17/2018 10:36 PM) [facility]
--- NOTE | 2018-05-17 23:25 | NUR ---
Call to Patient's Patrice informing him of patient status and transfer for closer monitoring to room 263. Offered Patrice to give him phone number and name of RN caring for patient, Patrice declined. Patrice stated "I have a friend down there,I know where it is."
[2018-05-18] VITALS (7 sets, daily range): BP systolic 99–141; BP diastolic 54–72
[2018-05-18] MEDS: ONDANSETRON PF 4 MG/2 ML VIAL. IV SCH ×4 (00:40→18:00)
[2018-05-18] MEDS: ONDANSETRON ODT 4 MG TAB.RAPDIS. PO SCH ×4 (01:50→18:00)
[2018-05-18] MEDS: ACETAMINOPHEN 500 MG TABLET PO SCH ×5 (01:50→18:00)
[2018-05-18] MEDS: HYDROmorphone 4 MG TABLET PO PRN ×5 (02:08→22:20)
--- NOTE | 2018-05-18 02:52 | NUR ---
At 0200, pt requests bedpan and pain medications rating R knee/leg pain at 7/10 and that "this is worse than any of the other surgeries." While giving PO meds per MAR, positioning onto the bedpan, and discussing her situation, the BiPap was removed and kept off while on bedpan. When the patient dozed off, after 12-15 min off bipap, pt desatted to 87% and bipap placed back on pt. Pt was reoriented as to what led to her transfer to . Pain medication and respiratory status education provided.
[2018-05-18] MEDS ORDERED: VANCOMYCIN 1 GM in IV DEXTROSE 5% 250 ML IV ONE (03:00)
--- NOTE | 2018-05-18 04:11 | NUR ---
Pt asks that ice packs be removed from R knee d/t pressure and heaviness.
[2018-05-18] MEDS ORDERED: MAGNESIUM HYDROXIDE 2,400 MG/30 ML ORAL.SUSP. PO PRN (06:00)
--- NOTE | 2018-05-18 07:51 | PDOC2 ---
CONSULT Date of Consult Date of Consult DATE: 05/18/18 TIME: 07:39 Reason for Consult Reason for Consult: BIPAP Referring Physician Referring Physician: Dr. Charli De La Cruz Identification/Chief Complaint Chief Complaint Hypoxic Respiratory Failure Source Source: Caregiver, Chart review, Patient History of Present Illness Reason for Visit: Venecia is a 67-year-old female w/ PMHx hypertension, hypercholesterolemia, obesity, gastroesophageal reflux, lap band in 05/2009, CASTRO previously on CPAP, renal cancer s/p left nephrectomy, arthritis, depression, anxiety, and history of MRSA who previously had history of a right total knee arthroplasty in 2016 followed by a traumatic wound dehiscence following total knee arthroplasty and underwent explantation and revision for infection and subsequently had a periprosthetic fracture. 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 On 05/17/18 underwent extensive patellar reconstruction with allograft Achilles tendon and calcaneus bone block and after surgery experienced hypoxic respiratory failure that required BIPAP overnight and we are requested to assist in her care. On further review she began antidepressants and cycled through a number of medications last year and with her knee complications and the antidepressants she has gained 30-60 pounds and has cycled through losing weight and gaining it back. Has not had any lap band adjustments during this time. She notes that she did have CPAP nightly at home prior to her Lap band in 2009, but has since not required it, but her notes over the past month and half where she did gain more weight (30 pounds) that she has been snoring more and gasping at night. Past Medical History Cardiovascular: HTN Pulmonary: No pertinent hx GI: GERD, Other (S/p lap banding) Heme/Onc: Cancer (renal cancer) Hepatobiliary: No pertinent hx Psych: Anxiety, Depression Rheumatologic: No pertinent hx Infectious disease: No pertinent hx ENT: No pertinent hx Renal/: Renal Ca. Endocrine: No pertinent hx Dermatology: No pertinent hx Past Surgical History Past Surgical History: Cataract Removal, Total knee replacement, Tonsillectomy , Hysterectomy, Other (Lap band) Family History Family History: Hypertension Social History No ALCOHOL: rare Drugs: None Lives: with Family Domestic Violence: Neg Current Medications Current Medications Current Medications Morphine Sulfate 5 mg/Ketorolac Tromethamine 30 mg/Ropivacaine 60 ml/ Epinephrine HCl 0.5 mg/Sodium Chloride 100 ml @ 100 mls/hr 1X ONCE INT ART Last administered on 05/17/18at 16:07; Start 05/17/18 at 06:00; Stop 05/17/18 at 06: 59; Status DC Fentanyl Citrate (Fentanyl 2ml Vial) 25 mcg PRN Q5MIN PRN IV MILD PAIN; Start 05/17/18 at 07:00; Stop 05/18/18 at 06:59; Status DC Fentanyl Citrate (Fentanyl 2ml Vial) 50 mcg PRN Q5MIN PRN IV MODERATE TO SEVERE PAIN; Start 05/17/18 at 07:00; Stop 05/18/18 at 06:59; Status DC Ringer's Solution 1,000 ml @ 30 mls/hr Q24H IV Last administered on 05/17/18at 11:34; Start 05/17/18 at 07:00; Stop 05/17/18 at 18:59; Status DC Lidocaine HCl (Xylocaine-Mpf 1% 2ml Vial) 2 ml PRN 1X PRN ID IV START; Start at 07:00; Stop 05/18/18 at 06:59; Status DC Prochlorperazine Edisylate (Compazine) 5 mg PACU PRN PRN IV NAUSEA, MRX1; Start 05/17/18 at 07:00; Stop 05/18/18 at 06:59; Status DC Meloxicam (Mobic) 15 mg 1X PREOP PRN PO PRIOR TO PROCEDURE Last administered on 05/17/18at 11:39; Start 05/17/18 at 06:00; Stop 05/17/18 at 18:00; Status DC Acetaminophen (Tylenol) 1,000 mg ONCE ONCE PO ; Start 05/17/18 at 06:00; Stop at 06:01; Status DC Clindamycin Phosphate 50 ml @ 100 mls/hr 1X PREOP PRN IV PRIOR TO PROCEDURE Last administered on 05/17/18at 15:15; Start 05/17/18 at 06:00; Stop 05/17/18 at 18: 00; Status DC Propofol 20 ml @ As Directed STK-MED ONCE IV ; Start 05/17/18 at 14:06; Stop 05/17 at 14:07; Status DC Lidocaine HCl (Lidocaine Pf 2% Vial) 5 ml STK-MED ONCE .ROUTE ; Start 05/17/18 at 14:06; Stop 05/17/18 at 14:07; Status DC Fentanyl Citrate (Fentanyl 2ml Vial) 100 mcg STK-MED ONCE .ROUTE ; Start at 14:06; Stop 05/17/18 at 14:07; Status DC Midazolam HCl (Versed) 2 mg STK-MED ONCE .ROUTE ; Start 05/17/18 at 14:06; Stop 05/17/18 at 14:07; Status DC Famotidine (Pepcid Vial) 20 mg STK-MED ONCE .ROUTE ; Start 05/17/18 at 15:31; Stop 05/17/18 at 15:32; Status DC Dexamethasone Sodium Phosphate (Decadron) 20 mg STK-MED ONCE .ROUTE ; Start 05/17 at 15:32; Stop 05/17/18 at 15:33; Status DC Ondansetron HCl (Zofran) 4 mg STK-MED ONCE .ROUTE ; Start 05/17/18 at 15:32; Stop 05/17/18 at 15:33; Status DC Hydromorphone HCl (Dilaudid) 2 mg STK-MED ONCE .ROUTE ; Start 05/17/18 at 15:52; Stop 05/17/18 at 19:29; Status DC Metoprolol Tartrate (Lopressor Vial) 5 mg STK-MED ONCE IVP ; Start 05/17/18 at 16 :15; Stop 05/17/18 at 16:16; Status DC Sevoflurane (Ultane) 60 ml STK-MED ONCE IH ; Start 05/17/18 at 16:16; Stop at 16:17; Status DC Hydralazine HCl (Apresoline Inj) 20 mg STK-MED ONCE .ROUTE ; Start 05/17/18 at 16 :58; Stop 05/17/18 at 16:59; Status DC Sevoflurane (Ultane) 90 ml STK-MED ONCE IH ; Start 05/17/18 at 17:33; Stop at 17:34; Status DC Hydromorphone HCl (Dilaudid) 2 mg PRN Q10MIN PRN IV PAIN; Start 05/17/18 at 17: 45 Hydromorphone HCl (Dilaudid) 2 mg STK-MED ONCE .ROUTE ; Start 05/17/18 at 17:44; Stop 05/17/18 at 17:45; Status DC Diphenhydramine HCl (Benadryl) 25 mg PRN Q6HRS PRN IV ITCHING; Start 05/17/18 at 18:00 Multivitamins (Thera M Plus) 1 tab DAILY PO ; Start 05/18/18 at 09:00 Senna/Docusate Sodium (Senna Plus) 1 tab DAILY PO ; Start 05/18/18 at 09:00 Ferrous Sulfate (Feosol) 325 mg BIDWMEALS PO ; Start 05/18/18 at 08:00 Sodium Chloride 1,000 ml @ 40 mls/hr Q24H IV Last administered on 05/18/18at 01: 49; Start 05/17/18 at 17:48; Stop 05/18/18 at 08:00 Vancomycin HCl 1 gm/Dextrose 250 ml @ 250 mls/hr 1X ONCE IV Last administered on 05/18/18at 03:29; Start 05/18/18 at 03:00; Stop 05/18/18 at 03:59; Status DC Magnesium Hydroxide (Milk Of Magnesia) 2,400 mg 1X PRN PRN PO CONSTIPATION; Start 05/18/18 at 06:00; Stop 05/19/18 at 05:59 Bisacodyl (Dulcolax Supp) 10 mg 1X PRN PRN TX CONSTIPATION; Start 05/18/18 at 16 :00; Stop 05/19/18 at 15:59 Calcium Carbonate/ Glycine (Tums) 500 mg PRN QID PRN PO INDIGESTION; Start 05/17 at 18:00 Sodium Chloride (Normal Saline Flush) 10 ml QSHIFT PRN IV AFTER MEDS AND BLOOD DRAWS; Start 05/17/18 at 18:00 Acetaminophen (Tylenol) 1,000 mg Q6H PO ; Start 05/18/18 at 09:00; Stop 05/18/18 at 09:00; Status DC Ondansetron HCl (Zofran) 4 mg Q6HRS IV Last administered on 05/18/18at 00:40; Start 05/18/18 at 00:00; Stop 05/18/18 at 18:01 Ondansetron HCl (Zofran Odt) 4 mg Q6HRS PO Last administered on 05/18/18at 06:07 ; Start 05/18/18 at 00:00; Stop 05/18/18 at 18:01 Ondansetron HCl (Zofran) 4 mg PRN Q6HRS PRN IV Nausea/vomiting, 1st choice; Start 05/18/18 at 12:00 Ondansetron HCl (Zofran Odt) 4 mg PRN Q6HRS PRN PO Nausea/vomiting, 1st choice ; Start 05/18/18 at 12:00 Dextrose (Dextrose 50%-Water Syringe) 12.5 gm PRN Q15MIN PRN IV SEE COMMENTS; Start 05/17/18 at 18:00 Hydromorphone HCl (Dilaudid) 4 mg PRN Q4HRS PRN PO MODERATE TO SEVERE PAIN Last administered on 05/18/18at 02:08; Start 05/17/18 at 18:00; Stop 05/20/18 at 17: 59 Hydromorphone HCl (Dilaudid) 1 mg PRN Q2HRS PRN IV SEVERE PAIN Last administered on 05/17/18at 20:21; Start 05/17/18 at 18:00 Rivaroxaban (Xarelto) 10 mg DAILYWSUP PO ; Start 05/18/18 at 17:00; Stop 05/21/18 at 16:59 Carvedilol (Coreg) 6.25 mg BIDWMEALS PO ; Start 05/18/18 at 08:00 Cyclobenzaprine HCl (Flexeril) 10 mg PRN TID PRN PO BREAKTHROUGH PAIN; Start at 20:15 EZETIMIBE (Zetia) 10 mg DAILY PO ; Start 05/18/18 at 09:00 Duloxetine HCl (Cymbalta) 60 mg BID PO ; Start 05/17/18 at 21:00 Citalopram Hydrobromide (CeleXA) 40 mg DAILY PO ; Start 05/18/18 at 09:00 Non-Formulary Medication (Modafinil (Provigil)) 200 mg DAILY PO ; Start 05/18/18 at 09:00; Status UNV Famotidine (Pepcid) 40 mg QHS PO ; Start 05/17/18 at 21:00 Naloxone HCl (Narcan) 0.4 mg STK-MED ONCE .ROUTE ; Start 05/17/18 at 21:16; Stop 05/17/18 at 21:17; Status DC Naloxone HCl (Narcan) 0.4 mg PRN Q2MIN PRN IV SEE COMMENTS; Start 05/17/18 at 21 :45 Acetaminophen (Tylenol) 1,000 mg Q6H PO Last administered on 05/18/18at 01:50; Start 05/17/18 at 00:00 Active Scripts Active Reported Coreg (Carvedilol) 6.25 Mg Tablet 1 Tab PO BID Potassium Chloride 10 Meq Capsule.er 10 Meq PO UD Zetia (Ezetimibe) 10 Mg Tablet 1 Tab PO DAILY AM Vitamin D2 (Ergocalciferol (Vitamin D2)) 50,000 Unit Capsule 50,000 Unit PO WEEKLY Lexapro (Escitalopram Oxalate) 20 Mg Tablet 40 Mg PO DAILY Trazodone Hcl 100 Mg Tablet 1 Tab PO QHS Dilaudid (Hydromorphone Hcl) 4 Mg Tablet 8 Mg PO PRN Q4HRS PRN Provigil (Modafinil) 100 Mg Tablet 200 Mg PO DAILY Cyclobenzaprine Hcl 10 Mg Tablet 10 Mg PO TID PRN Ranitidine Hcl 300 Mg Capsule 1 Cap PO HS Cymbalta (Duloxetine Hcl) 60 Mg Capsule.dr 60 Mg PO BID Allergies Allergies: Coded Allergies: Sulfa (Sulfonamide Antibiotics) (Verified Allergy, Intermediate, Nausea and Vomiting, 05/17/18) rash also cephalexin (Verified Allergy, Intermediate, Nausea and Vomiting, 05/17/18) rash and hives also gabapentin (Verified Allergy, Intermediate, Itching, 05/17/18) rash also hydrocodone (Verified Allergy, Intermediate, Tolerates hydromorphone, ) metformin (Verified Allergy, Intermediate, 05/17/18) oxymorphone (Verified Allergy, Intermediate, 05/17/18) Tolerates hydromorphone bupropion (Verified Adverse Reaction, Intermediate, 05/10/18) "MAKES HER CRAZY" oxycodone (Verified Adverse Reaction, Intermediate, Nausea and Vomiting, ) rosuvastatin (Verified Adverse Reaction, Intermediate, 05/10/18) MUSCLE ACHING ROS General: YES: Fatigue; No: Chills, Night Sweats, Malaise, Appetite, Other PSYCHOLOGICAL ROS: YES: Anxiety, Depression; No: Behavioral Disorder, Concentration difficultie, Decreased libido, Disorientation, Hallucinations, Hostility, Irritablity, Memory difficulties, Mood Swings, Obsessive thoughts, Physical abuse, Sexual abuse, Sleep disturbances, Suicidal ideation, Other Eyes: No Blurry vision, No Decreased vision, No Double vision, No Dry eyes, No Excessive tearing, No Eye Pain, No Itchy Eyes, No Loss of vision, No Photophobia , No Scotomata, No Uses contacts, No Uses glasses, No Other HEENT: No: Heacaches, Visual Changes, Hearing change, Nasal congestion, Nasal discharge, Oral lesions, Sinus pain, Sore Throat, Epistaxis, Sneezing, Snoring, Tinnitus, Vertigo, Vocal changes, Other ALLERGY AND IMMUNOLOGY: No: Hives, Insect Bite Sensitivity, Itchy/Watery Eyes, Nasal Congestion, Post Nasal Drip, Seasonal Allergies, Other Hematological and Lymphatic: No: Bleeding Problems, Blood Clots, Blood Transfusions, Brusing, Night Sweats, Pallor, Swollen Lymph Nodes, Other ENDOCRINE: No: Breast Changes, Galactorrhea, Hair Pattern Changes, Hot Flashes , Malaise/lethargy, Mood Swings, Palpitations, Polydipsia/polyuria, Skin Changes , Temperature Intolerance, Unexpected Weight Changes, Other Breast: No New/Changing Breast Lumps, No Nipple changes, No Nipple discharge, No Other Respiratory: YES: SOB with excertion; No: Cough, Hemoptysis, Orthopnea, Pleuritic Pain, Shortness of breath, Sputum Changes, Stridor, Tachypnea, Wheezing, Other Cardiovascular: No Chest Pain, No Palpitations, No Orthopnea, No Paroxysmal Noc. Dyspnea, No Edema, No Lt Headedness, No Other Gastrointestinal: No Nausea, No Vomiting, No Abdominal Pain, No Diarrhea, No Constipation, No Melena, No Hematochezia, No Other Genitourinary: No Dysuria, No Frequency, No Incontinence, No Hematuria, No Retention, No Discharge, No Urgency, No Pain, No Flank Pain, No Other, No , No , No , No , No , No , No Musculoskeletal: Yes Gait Disturbance, Yes Joint Pain, Yes Joint Swelling; No Joint Stiffness, No Muscle Pain, No Muscular Weakness, No Pain In:, No Swelling In:, No Other Neurological: No Behavorial Changes, No Bowel/Bladder ControlChng, No Confusion , No Dizziness, No Gait Disturbance, No Headaches, No Impaired Coord/balance, No Memory Loss, No Numbness/Tingling, No Seizures, No Speech Problems, No Tremors, No Visual Changes, No Weakness, No Other Skin: No Dry Skin, No Eczema, No Hair Changes, No Lumps, No Mole Changes, No Mottling, No Nail Changes, No Pruritus, No Rash, No Skin Lesion Changes, No Other, No Acne Physical Exam General: Alert, Oriented X3, Cooperative, No acute distress HEENT: Atraumatic, PERRLA, EOMI, Mucous membr. moist/pink Lungs: Clear to auscultation, Normal air movement Heart: Regular rate, Normal S1, Normal S2, No murmurs Abdomen: Normal bowel sounds, Soft, No tenderness, No hepatosplenomegaly, No masses Extremities: No clubbing, No cyanosis, Normal pulses, Other (Right knee immobilized) Skin: No rashes, No breakdown Neuro: Normal speech, Normal tone, Sensation intact, Reflexes 2+ Psych/Mental Status: Mental status NL, Mood NL Vitals VITALS Vital Signs Date Time Temp Pulse Resp B/P (MAP) Pulse Ox O2 Delivery O2 Flow Rate FiO2 05/18/18 04:46 98 BiPAP/CPAP 05/18/18 03:00 98.8 81 21 141/72 (95) 98.8 05/17/18 21:30 10.0 Labs Labs Laboratory Tests Test 05/17/18 20:52 Glucose (Fingerstick) 159 mg/dL (70-99) Laboratory Tests Test 05/17/18 20:52 Glucose (Fingerstick) 159 mg/dL (70-99) Assessment/Plan Assessment/Plan A/P: Hypoxic respiratory failure - significant respiratory history for CASTRO previously on QHS CPAP. I would reinitiate this and recommend she return to sleep medicine physician. She is rather opioid tolerant and has not has problems with anesthesia previously, so likely her CASTRO needs further treatment. Will have her back on CPAP QHS Repeat right total knee arthroplasty, status post explantation, debridement and insertion of antibiotic spacer on 04/16/2017 - now with repeat surgery, rehab plans per ortho Hypertension - cont meds Hypercholesterolemia - cont statin Obesity - counseled on f/u with bariatric surgery Gastroesophageal reflux - cont PPI, may need liquid carafate if this worsens again Lap band in 05/2009 - needs f/u with bariatric after her weight gain Renal cancer s/p left nephrectomy - had good f/u Depression - may be a better candidate for wellbutrin or effexor with her h/o weight gain, though anxiety could worsen, could use buspar as well. We have discussed in depth. FEN - ADAT PPX - rec lovenox unless she will be ambulating soon FULL CODE Inpatient for respiratory failure requiring BIPAP. Will likely need rehab services whether inpatient or home will be up to PT. Thank you for this interesting consultation, we will continue to follow her while in house, call with any questions. [phone] or page overhead, Lilliam as well ZACHARIAH LOPEZ MD May 18, 2018 07:51
[2018-05-18] MEDS: FERROUS SULFATE 325 MG TABLET. PO SCH ×2 (08:00→17:00)
[2018-05-18] MEDS ORDERED: NON FORMULARY ITEM (Modafinil (Provigil) 200 MG) PO SCH (09:00)
[2018-05-18] MEDS ORDERED: ACETAMINOPHEN 500 MG TABLET PO SCH (09:00)
[2018-05-18 09:21] LABS: BASO % 0 % (0-3); EOS % 0 % (0-3); HEMATOCRIT 39.5 % (36.0-47.0); HEMOGLOBIN 12.8 g/dL (12.0-15.5); LYMPH # 0.7 x10^3/uL (1.0-4.8); LYMPH % 6 % (24-48); MEAN CORPUSCULAR HEMOGLOBIN 29 pg (25-35); MEAN CORPUSCULAR HGB CONC 33 g/dL (31-37); MEAN CORPUSCULAR VOLUME 88 fL (79-100); MONO # 0.3 x10^3/uL (0.0-1.1); MONO % 3 % (0-9); NEUT # 10.6 x10^3uL (1.8-7.7); NEUT % 91 % (31-73); PLATELET COUNT 306 x10^3/uL (140-400); RED BLOOD COUNT 4.51 x10^6/uL (3.50-5.40); RED CELL DISTRIBUTION WIDTH 13.7 % (11.5-14.5); WHITE BLOOD COUNT 11.7 x10^3/uL (4.0-11.0)
[2018-05-18 09:23] LABS: CALCIUM 8.5 mg/dL (8.5-10.1); CREATININE 1.1 mg/dL (0.6-1.0); GFR 49.4; POTASSIUM 3.8 mmol/L (3.5-5.1)
[2018-05-18] MEDS: EZETIMIBE 10 MG TABLET. PO SCH (09:39)
[2018-05-18] MEDS: SENNOSIDES/DOCUSATE 8.6/50MG TABLET. PO SCH (09:39)
[2018-05-18] MEDS: MULTIVITAMIN with MINERAL TABLET. PO SCH (09:39)
[2018-05-18] MEDS: CARVEDILOL 6.25 MG TABLET. PO SCH ×2 (09:40→17:00)
[2018-05-18] MEDS: DULoxetine HCL 30 MG CAPSULE.DR PO SCH ×2 (09:41→20:53)
[2018-05-18] MEDS: CITALOPRAM 20 MG TABLET. PO SCH (09:43)
[2018-05-18 11:25] LABS: % BANDS 1 % (0-9); % LYMPHS 9 % (24-48); % MONOS 6 % (0-10); % SEGS 84 % (35-66); PLT ESTIMATE ADEQUATE (ADEQUATE)
[2018-05-18] MEDS ORDERED: ONDANSETRON ODT 4 MG TAB.RAPDIS. PO PRN (12:00)
--- NOTE | 2018-05-18 13:59 | NUR ---
SS following for discharge planning. SS reviewed pt chart. Pt is from home with spouse and is currently requiring oxygen. PT/OT ordered. SS will await PT/OT evaluations and recommendations and will proceed accordingly with discharge planning.
--- NOTE | 2018-05-18 15:43 | NUR ---
received from 2nd floor. she states that Dr. De La Cruz states that she can stay in bed today and start physical therapy tomorrow. she has good pulses, sensation bilateral lower extremities. she remains hypotensive and fluids continue. ice applied to operative leg.
[2018-05-18] MEDS ORDERED: BISACODYL 10 MG SUPP.RECT. PR PRN (16:00)
[2018-05-18] MEDS ORDERED: RIVAROXABAN 10 MG TABLET. PO SCH (17:00)
--- NOTE | 2018-05-18 17:52 | PDOC ---
PROGRESS NOTES Subjective Subjective Problems overnight: Doing well now, had an episode last night that she really doesn't remember where her respirations decreased significantly after receiving pain medication and she received Narcan which reverse the issues but she was placed 4 more extensive monitoring and BiPAP overnight. She is not on the BiPAP now and is 98% saturation Objective Vital Signs Vital Signs Date Time Temp Pulse Resp B/P (MAP) Pulse Ox O2 Delivery O2 Flow Rate FiO2 05/18/18 15:51 Nasal Cannula 2.0 05/18/18 15:30 73 99/58 (72) 98 05/18/18 11:00 98.6 20 98.6 Physical Exam Knee dressings clean dry intact distal neurovascular status intact Labs Laboratory Tests Test 05/17/18 20:52 05/18/18 08:10 Glucose (Fingerstick) 159 mg/dL (70-99) White Blood Count 11.7 x10^3/uL (4.0-11.0) Red Blood Count 4.51 x10^6/uL (3.50-5.40) Hemoglobin 12.8 g/dL (12.0-15.5) Hematocrit 39.5 % (36.0-47.0) Mean Corpuscular Volume 88 fL (79-100) Mean Corpuscular Hemoglobin 29 pg (25-35) Mean Corpuscular Hemoglobin Concent 33 g/dL (31-37) Red Cell Distribution Width 13.7 % (11.5-14.5) Platelet Count 306 x10^3/uL (140-400) Neutrophils (%) (Auto) 91 % (31-73) Lymphocytes (%) (Auto) 6 % (24-48) Monocytes (%) (Auto) 3 % (0-9) Eosinophils (%) (Auto) 0 % (0-3) Basophils (%) (Auto) 0 % (0-3) Neutrophils # (Auto) 10.6 x10^3uL (1.8-7.7) Lymphocytes # (Auto) 0.7 x10^3/uL (1.0-4.8) Monocytes # (Auto) 0.3 x10^3/uL (0.0-1.1) Eosinophils # (Auto) 0.0 x10^3/uL (0.0-0.7) Basophils # (Auto) 0.0 x10^3/uL (0.0-0.2) Segmented Neutrophils % 84 % (35-66) Band Neutrophils % 1 % (0-9) Lymphocytes % 9 % (24-48) Monocytes % 6 % (0-10) Platelet Estimate Adequate (ADEQUATE) Sodium Level 139 mmol/L (136-145) Potassium Level 3.8 mmol/L (3.5-5.1) Chloride Level 99 mmol/L (98-107) Carbon Dioxide Level 33 mmol/L (21-32) Anion Gap 7 (6-14) Blood Urea Nitrogen 25 mg/dL (7-20) Creatinine 1.1 mg/dL (0.6-1.0) Estimated GFR (Cockcroft-Gault) 49.4 Glucose Level 160 mg/dL (70-99) Calcium Level 8.5 mg/dL (8.5-10.1) Laboratory Tests Test 05/17/18 20:52 05/18/18 08:10 Glucose (Fingerstick) 159 mg/dL (70-99) White Blood Count 11.7 x10^3/uL (4.0-11.0) Red Blood Count 4.51 x10^6/uL (3.50-5.40) Hemoglobin 12.8 g/dL (12.0-15.5) Hematocrit 39.5 % (36.0-47.0) Mean Corpuscular Volume 88 fL (79-100) Mean Corpuscular Hemoglobin 29 pg (25-35) Mean Corpuscular Hemoglobin Concent 33 g/dL (31-37) Red Cell Distribution Width 13.7 % (11.5-14.5) Platelet Count 306 x10^3/uL (140-400) Neutrophils (%) (Auto) 91 % (31-73) Lymphocytes (%) (Auto) 6 % (24-48) Monocytes (%) (Auto) 3 % (0-9) Eosinophils (%) (Auto) 0 % (0-3) Basophils (%) (Auto) 0 % (0-3) Neutrophils # (Auto) 10.6 x10^3uL (1.8-7.7) Lymphocytes # (Auto) 0.7 x10^3/uL (1.0-4.8) Monocytes # (Auto) 0.3 x10^3/uL (0.0-1.1) Eosinophils # (Auto) 0.0 x10^3/uL (0.0-0.7) Basophils # (Auto) 0.0 x10^3/uL (0.0-0.2) Segmented Neutrophils % 84 % (35-66) Band Neutrophils % 1 % (0-9) Lymphocytes % 9 % (24-48) Monocytes % 6 % (0-10) Platelet Estimate Adequate (ADEQUATE) Sodium Level 139 mmol/L (136-145) Potassium Level 3.8 mmol/L (3.5-5.1) Chloride Level 99 mmol/L (98-107) Carbon Dioxide Level 33 mmol/L (21-32) Anion Gap 7 (6-14) Blood Urea Nitrogen 25 mg/dL (7-20) Creatinine 1.1 mg/dL (0.6-1.0) Estimated GFR (Cockcroft-Gault) 49.4 Glucose Level 160 mg/dL (70-99) Calcium Level 8.5 mg/dL (8.5-10.1) Imaging Postoperative x-rays show excellent position of a allograft reconstruction of her extensor mechanism Assessment Assessment POD# [1], S/P [allograft reconstruction extensor mechanism right knee] Plan Plan of Care Weightbearing as tolerated with knee brace locked in extension may do quad sets and only gentle range of motion 0-30 maximum with no weight on the leg in a bent position May return to joint center this afternoon if remains otherwise medically stable LESLIE PEREZ MD May 18, 2018 17:52
[2018-05-18] MEDS: ONDANSETRON PF 4 MG/2 ML VIAL. IV PRN (18:13)
--- NOTE | 2018-05-18 18:15 | NUR ---
Venecia complaining of pain; she is rating it "7". Medicated with Dilaudid encouraged to get up to the commode to void. she voided 200 dragan urine. she became nauseated after movement and had an emesis of 125 digested food. returned to bed. oral care provide along with noble care. she states that she did not have a bath today. lines changed; stated that her gown was okay. rests with eyes closed
[2018-05-18] MEDS: FAMOTIDINE 20 MG TABLET. PO SCH (20:53)
--- NOTE | 2018-05-18 21:00 | NUR ---
pt tablet and small black wallet returned by master deputy [employer] security per patient request stated want to keep it and she will give it to her
[2018-05-19 03:04] VITALS: BP 125/72
[2018-05-19 05:34] VITALS: BP 108/54
[2018-05-19] MEDS: ACETAMINOPHEN 500 MG TABLET PO SCH ×4 (06:00→17:17)
[2018-05-19] MEDS: HYDROmorphone 4 MG TABLET PO PRN ×3 (06:58→15:33)
--- NOTE | 2018-05-19 07:02 | NUR ---
pt O2 sat @ 2liters checked during the night frequently [id number]
--- NOTE | 2018-05-19 07:58 | PDOC ---
PROGRESS NOTES Chief Complaint Chief Complaint A/P: Hypoxic respiratory failure - significant respiratory history for CASTRO previously on QHS CPAP. I would reinitiate this and recommend she return to sleep medicine physician. She is rather opioid tolerant and has not has problems with anesthesia previously, so likely her CASTRO needs further treatment. Will have her back on CPAP QHS Repeat right total knee arthroplasty, status post explantation, debridement and insertion of antibiotic spacer on 04/16/2017 - now with repeat surgery, rehab plans per ortho Hypertension - cont meds, restart Maxzide today Hypercholesterolemia - cont statin Obesity - counseled on f/u with bariatric surgery Gastroesophageal reflux - cont PPI, may need liquid carafate if this worsens again Lap band in 05/2009 - needs f/u with bariatric after her weight gain Renal cancer s/p left nephrectomy - had good f/u Depression - may be a better candidate for wellbutrin or effexor with her h/o weight gain, though anxiety could worsen, could use buspar as well. We have discussed in depth and will use trazodone to sleep tonight FEN - ADAT PPX - rec lovenox unless she will be ambulating soon FULL CODE Inpatient for respiratory failure requiring BIPAP. Will likely need rehab services whether inpatient or home will be up to PT. Likely home tomorrow Thank you for this interesting consultation, we will continue to follow her while in house, call with any questions. [phone] or page overhead, [facility] as well History of Present Illness History of Present Illness Venecia is a 67-year-old female w/ PMHx hypertension, hypercholesterolemia, obesity, gastroesophageal reflux, lap band in 05/2009, CASTRO previously on CPAP, renal cancer s/p left nephrectomy, arthritis, depression, anxiety, and history of MRSA who previously had history of a right total knee arthroplasty in 2016 followed by a traumatic wound dehiscence following total knee arthroplasty and underwent explantation and revision for infection and subsequently had a periprosthetic fracture. 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 On 05/17/18 underwent extensive patellar reconstruction with allograft Achilles tendon and calcaneus bone block and after surgery experienced hypoxic respiratory failure that required BIPAP overnight and we are requested to assist in her care. On further review she began antidepressants and cycled through a number of medications last year and with her knee complications and the antidepressants she has gained 30-60 pounds and has cycled through losing weight and gaining it back. Has not had any lap band adjustments during this time. She notes that she did have CPAP nightly at home prior to her Lap band in 2009, but has since not required it, but her notes over the past month and half where she did gain more weight (30 pounds) that she has been snoring more and gasping at night. Overnight she did not sleep well, is requesting a sleep aid. Her pain is reasonably controlled. She feels wiped out after PT. Has good spirits. IS bedside. No SOB or CP. passing flatus. No BM Vitals Vitals Vital Signs Date Time Temp Pulse Resp B/P (MAP) Pulse Ox O2 Delivery O2 Flow Rate FiO2 05/19/18 07:02 Nasal Cannula 2.0 05/19/18 05:34 98.3 73 18 108/54 (72) 99 98.3 Physical Exam General: Alert, Oriented X3, Cooperative, No acute distress Heart: Regular rate, Normal S1, Normal S2, No murmurs Abdomen: Normal bowel sounds, Soft, No tenderness, No hepatosplenomegaly, No masses Extremities: No clubbing, No cyanosis, Normal pulses, Other (Right knee immobilized) Skin: No rashes, No breakdown Labs LABS Laboratory Tests Test 05/18/18 08:10 White Blood Count 11.7 x10^3/uL (4.0-11.0) Red Blood Count 4.51 x10^6/uL (3.50-5.40) Hemoglobin 12.8 g/dL (12.0-15.5) Hematocrit 39.5 % (36.0-47.0) Mean Corpuscular Volume 88 fL (79-100) Mean Corpuscular Hemoglobin 29 pg (25-35) Mean Corpuscular Hemoglobin Concent 33 g/dL (31-37) Red Cell Distribution Width 13.7 % (11.5-14.5) Platelet Count 306 x10^3/uL (140-400) Neutrophils (%) (Auto) 91 % (31-73) Lymphocytes (%) (Auto) 6 % (24-48) Monocytes (%) (Auto) 3 % (0-9) Eosinophils (%) (Auto) 0 % (0-3) Basophils (%) (Auto) 0 % (0-3) Neutrophils # (Auto) 10.6 x10^3uL (1.8-7.7) Lymphocytes # (Auto) 0.7 x10^3/uL (1.0-4.8) Monocytes # (Auto) 0.3 x10^3/uL (0.0-1.1) Eosinophils # (Auto) 0.0 x10^3/uL (0.0-0.7) Basophils # (Auto) 0.0 x10^3/uL (0.0-0.2) Segmented Neutrophils % 84 % (35-66) Band Neutrophils % 1 % (0-9) Lymphocytes % 9 % (24-48) Monocytes % 6 % (0-10) Platelet Estimate Adequate (ADEQUATE) Sodium Level 139 mmol/L (136-145) Potassium Level 3.8 mmol/L (3.5-5.1) Chloride Level 99 mmol/L (98-107) Carbon Dioxide Level 33 mmol/L (21-32) Anion Gap 7 (6-14) Blood Urea Nitrogen 25 mg/dL (7-20) Creatinine 1.1 mg/dL (0.6-1.0) Estimated GFR (Cockcroft-Gault) 49.4 Glucose Level 160 mg/dL (70-99) Calcium Level 8.5 mg/dL (8.5-10.1) Comment Review of Relevant I have reviewed the following items dieter (where applicable) has been applied. Labs Laboratory Tests Test 05/17/18 20:52 05/18/18 08:10 Glucose (Fingerstick) 159 mg/dL (70-99) White Blood Count 11.7 x10^3/uL (4.0-11.0) Red Blood Count 4.51 x10^6/uL (3.50-5.40) Hemoglobin 12.8 g/dL (12.0-15.5) Hematocrit 39.5 % (36.0-47.0) Mean Corpuscular Volume 88 fL (79-100) Mean Corpuscular Hemoglobin 29 pg (25-35) Mean Corpuscular Hemoglobin Concent 33 g/dL (31-37) Red Cell Distribution Width 13.7 % (11.5-14.5) Platelet Count 306 x10^3/uL (140-400) Neutrophils (%) (Auto) 91 % (31-73) Lymphocytes (%) (Auto) 6 % (24-48) Monocytes (%) (Auto) 3 % (0-9) Eosinophils (%) (Auto) 0 % (0-3) Basophils (%) (Auto) 0 % (0-3) Neutrophils # (Auto) 10.6 x10^3uL (1.8-7.7) Lymphocytes # (Auto) 0.7 x10^3/uL (1.0-4.8) Monocytes # (Auto) 0.3 x10^3/uL (0.0-1.1) Eosinophils # (Auto) 0.0 x10^3/uL (0.0-0.7) Basophils # (Auto) 0.0 x10^3/uL (0.0-0.2) Segmented Neutrophils % 84 % (35-66) Band Neutrophils % 1 % (0-9) Lymphocytes % 9 % (24-48) Monocytes % 6 % (0-10) Platelet Estimate Adequate (ADEQUATE) Sodium Level 139 mmol/L (136-145) Potassium Level 3.8 mmol/L (3.5-5.1) Chloride Level 99 mmol/L (98-107) Carbon Dioxide Level 33 mmol/L (21-32) Anion Gap 7 (6-14) Blood Urea Nitrogen 25 mg/dL (7-20) Creatinine 1.1 mg/dL (0.6-1.0) Estimated GFR (Cockcroft-Gault) 49.4 Glucose Level 160 mg/dL (70-99) Calcium Level 8.5 mg/dL (8.5-10.1) Laboratory Tests Test 05/18/18 08:10 White Blood Count 11.7 x10^3/uL (4.0-11.0) Red Blood Count 4.51 x10^6/uL (3.50-5.40) Hemoglobin 12.8 g/dL (12.0-15.5) Hematocrit 39.5 % (36.0-47.0) Mean Corpuscular Volume 88 fL (79-100) Mean Corpuscular Hemoglobin 29 pg (25-35) Mean Corpuscular Hemoglobin Concent 33 g/dL (31-37) Red Cell Distribution Width 13.7 % (11.5-14.5) Platelet Count 306 x10^3/uL (140-400) Neutrophils (%) (Auto) 91 % (31-73) Lymphocytes (%) (Auto) 6 % (24-48) Monocytes (%) (Auto) 3 % (0-9) Eosinophils (%) (Auto) 0 % (0-3) Basophils (%) (Auto) 0 % (0-3) Neutrophils # (Auto) 10.6 x10^3uL (1.8-7.7) Lymphocytes # (Auto) 0.7 x10^3/uL (1.0-4.8) Monocytes # (Auto) 0.3 x10^3/uL (0.0-1.1) Eosinophils # (Auto) 0.0 x10^3/uL (0.0-0.7) Basophils # (Auto) 0.0 x10^3/uL (0.0-0.2) Segmented Neutrophils % 84 % (35-66) Band Neutrophils % 1 % (0-9) Lymphocytes % 9 % (24-48) Monocytes % 6 % (0-10) Platelet Estimate Adequate (ADEQUATE) Sodium Level 139 mmol/L (136-145) Potassium Level 3.8 mmol/L (3.5-5.1) Chloride Level 99 mmol/L (98-107) Carbon Dioxide Level 33 mmol/L (21-32) Anion Gap 7 (6-14) Blood Urea Nitrogen 25 mg/dL (7-20) Creatinine 1.1 mg/dL (0.6-1.0) Estimated GFR (Cockcroft-Gault) 49.4 Glucose Level 160 mg/dL (70-99) Calcium Level 8.5 mg/dL (8.5-10.1) Microbiology 05/17/18 Anaerobic/Aerobic Culture, Resulted Pending 05/17/18 Anaerobic Culture Result 1 (TANYA), Resulted Pending 05/17/18 Aerobic Culture, Resulted Pending 05/17/18 Aerobic Culture Result 1 (TANYA), Resulted Pending 05/17/18 Gram Stain - Final, Resulted 05/17/18 Gram Stain Result 1 (TANYA) - Final, Resulted 05/17/18 Gram Stain Result 2 (TANYA) - Final, Resulted Medications Current Medications Morphine Sulfate 5 mg/Ketorolac Tromethamine 30 mg/Ropivacaine 60 ml/ Epinephrine HCl 0.5 mg/Sodium Chloride 100 ml @ 100 mls/hr 1X ONCE INT ART Last administered on 05/17/18at 16:07; Start 05/17/18 at 06:00; Stop 05/17/18 at 06: 59; Status DC Fentanyl Citrate (Fentanyl 2ml Vial) 25 mcg PRN Q5MIN PRN IV MILD PAIN; Start 05/17/18 at 07:00; Stop 05/18/18 at 06:59; Status DC Fentanyl Citrate (Fentanyl 2ml Vial) 50 mcg PRN Q5MIN PRN IV MODERATE TO SEVERE PAIN; Start 05/17/18 at 07:00; Stop 05/18/18 at 06:59; Status DC Ringer's Solution 1,000 ml @ 30 mls/hr Q24H IV Last administered on 05/17/18at 11:34; Start 05/17/18 at 07:00; Stop 05/17/18 at 18:59; Status DC Lidocaine HCl (Xylocaine-Mpf 1% 2ml Vial) 2 ml PRN 1X PRN ID IV START; Start at 07:00; Stop 05/18/18 at 06:59; Status DC Prochlorperazine Edisylate (Compazine) 5 mg PACU PRN PRN IV NAUSEA, MRX1; Start 05/17/18 at 07:00; Stop 05/18/18 at 06:59; Status DC Meloxicam (Mobic) 15 mg 1X PREOP PRN PO PRIOR TO PROCEDURE Last administered on 05/17/18at 11:39; Start 05/17/18 at 06:00; Stop 05/17/18 at 18:00; Status DC Acetaminophen (Tylenol) 1,000 mg ONCE ONCE PO ; Start 05/17/18 at 06:00; Stop at 06:01; Status DC Clindamycin Phosphate 50 ml @ 100 mls/hr 1X PREOP PRN IV PRIOR TO PROCEDURE Last administered on 05/17/18at 15:15; Start 05/17/18 at 06:00; Stop 05/17/18 at 18: 00; Status DC Propofol 20 ml @ As Directed STK-MED ONCE IV ; Start 05/17/18 at 14:06; Stop 05/17 at 14:07; Status DC Lidocaine HCl (Lidocaine Pf 2% Vial) 5 ml STK-MED ONCE .ROUTE ; Start 05/17/18 at 14:06; Stop 05/17/18 at 14:07; Status DC Fentanyl Citrate (Fentanyl 2ml Vial) 100 mcg STK-MED ONCE .ROUTE ; Start at 14:06; Stop 05/17/18 at 14:07; Status DC Midazolam HCl (Versed) 2 mg STK-MED ONCE .ROUTE ; Start 05/17/18 at 14:06; Stop 05/17/18 at 14:07; Status DC Famotidine (Pepcid Vial) 20 mg STK-MED ONCE .ROUTE ; Start 05/17/18 at 15:31; Stop 05/17/18 at 15:32; Status DC Dexamethasone Sodium Phosphate (Decadron) 20 mg STK-MED ONCE .ROUTE ; Start 05/17 at 15:32; Stop 05/17/18 at 15:33; Status DC Ondansetron HCl (Zofran) 4 mg STK-MED ONCE .ROUTE ; Start 05/17/18 at 15:32; Stop 05/17/18 at 15:33; Status DC Hydromorphone HCl (Dilaudid) 2 mg STK-MED ONCE .ROUTE ; Start 05/17/18 at 15:52; Stop 05/17/18 at 19:29; Status DC Metoprolol Tartrate (Lopressor Vial) 5 mg STK-MED ONCE IVP ; Start 05/17/18 at 16 :15; Stop 05/17/18 at 16:16; Status DC Sevoflurane (Ultane) 60 ml STK-MED ONCE IH ; Start 05/17/18 at 16:16; Stop at 16:17; Status DC Hydralazine HCl (Apresoline Inj) 20 mg STK-MED ONCE .ROUTE ; Start 05/17/18 at 16 :58; Stop 05/17/18 at 16:59; Status DC Sevoflurane (Ultane) 90 ml STK-MED ONCE IH ; Start 05/17/18 at 17:33; Stop at 17:34; Status DC Hydromorphone HCl (Dilaudid) 2 mg PRN Q10MIN PRN IV PAIN; Start 05/17/18 at 17: 45 Hydromorphone HCl (Dilaudid) 2 mg STK-MED ONCE .ROUTE ; Start 05/17/18 at 17:44; Stop 05/17/18 at 17:45; Status DC Diphenhydramine HCl (Benadryl) 25 mg PRN Q6HRS PRN IV ITCHING; Start 05/17/18 at 18:00 Multivitamins (Thera M Plus) 1 tab DAILY PO Last administered on 05/18/18at 09:39 ; Start 05/18/18 at 09:00 Senna/Docusate Sodium (Senna Plus) 1 tab DAILY PO Last administered on at 09:39; Start 05/18/18 at 09:00 Ferrous Sulfate (Feosol) 325 mg BIDWMEALS PO ; Start 05/18/18 at 08:00 Sodium Chloride 1,000 ml @ 40 mls/hr Q24H IV Last administered on 05/18/18at 01: 49; Start 05/17/18 at 17:48; Stop 05/18/18 at 08:00; Status DC Vancomycin HCl 1 gm/Dextrose 250 ml @ 250 mls/hr 1X ONCE IV Last administered on 05/18/18at 03:29; Start 05/18/18 at 03:00; Stop 05/18/18 at 03:59; Status DC Magnesium Hydroxide (Milk Of Magnesia) 2,400 mg 1X PRN PRN PO CONSTIPATION; Start 05/18/18 at 06:00; Stop 05/19/18 at 05:59; Status DC Bisacodyl (Dulcolax Supp) 10 mg 1X PRN PRN PA CONSTIPATION; Start 05/18/18 at 16 :00; Stop 05/19/18 at 15:59 Calcium Carbonate/ Glycine (Tums) 500 mg PRN QID PRN PO INDIGESTION; Start 05/17 at 18:00 Sodium Chloride (Normal Saline Flush) 10 ml QSHIFT PRN IV AFTER MEDS AND BLOOD DRAWS; Start 05/17/18 at 18:00 Acetaminophen (Tylenol) 1,000 mg Q6H PO ; Start 05/18/18 at 09:00; Stop 05/18/18 at 09:00; Status DC Ondansetron HCl (Zofran) 4 mg Q6HRS IV Last administered on 3/6/19at 13:50; Start 05/18/18 at 00:00; Stop 05/18/18 at 18:01; Status DC Ondansetron HCl (Zofran Odt) 4 mg Q6HRS PO Last administered on 05/18/18 06:07 ; Start 05/18/18 at 00:00; Stop 05/18/18 at 18:01; Status DC Ondansetron HCl (Zofran) 4 mg PRN Q6HRS PRN IV Nausea/vomiting, 1st choice Last administered on 05/18/18at 18:13; Start 05/18/18 at 12:00 Ondansetron HCl (Zofran Odt) 4 mg PRN Q6HRS PRN PO Nausea/vomiting, 1st choice ; Start 05/18/18 at 12:00 Dextrose (Dextrose 50%-Water Syringe) 12.5 gm PRN Q15MIN PRN IV SEE COMMENTS; Start 05/17/18 at 18:00 Hydromorphone HCl (Dilaudid) 4 mg PRN Q4HRS PRN PO MODERATE TO SEVERE PAIN Last administered on 05/19/18 06:58; Start 05/17/18 at 18:00; Stop 05/20/18 at 17: 59 Hydromorphone HCl (Dilaudid) 1 mg PRN Q2HRS PRN IV SEVERE PAIN Last administered on 05/17/18 20:21; Start 05/17/18 at 18:00 Rivaroxaban (Xarelto) 10 mg DAILYWSUP PO Last administered on 05/18/18 17:50; Start 05/18/18 at 17:00; Stop 05/21/18 at 16:59 Carvedilol (Coreg) 6.25 mg BIDWMEALS PO Last administered on 05/18/18 09:40; Start 05/18/18 at 08:00 Cyclobenzaprine HCl (Flexeril) 10 mg PRN TID PRN PO BREAKTHROUGH PAIN; Start at 20:15 EZETIMIBE (Zetia) 10 mg DAILY PO Last administered on 05/18/18 09:39; Start 05/18/18 at 09:00 Duloxetine HCl (Cymbalta) 60 mg BID PO Last administered on 05/18/18 20:53; Start 05/17/18 at 21:00 Citalopram Hydrobromide (CeleXA) 40 mg DAILY PO Last administered on 05/18/18at 09:43; Start 05/18/18 at 09:00 Non-Formulary Medication (Modafinil (Provigil)) 200 mg DAILY PO ; Start 05/18/18 at 09:00; Stop 05/19/18 at 07:08; Status DC Famotidine (Pepcid) 40 mg QHS PO Last administered on 05/18/18at 20:53; Start 05/17/18 at 21:00 Naloxone HCl (Narcan) 0.4 mg STK-MED ONCE .ROUTE ; Start 05/17/18 at 21:16; Stop 05/17/18 at 21:17; Status DC Naloxone HCl (Narcan) 0.4 mg PRN Q2MIN PRN IV SEE COMMENTS; Start 05/17/18 at 21 :45 Acetaminophen (Tylenol) 1,000 mg Q6H PO Last administered on 05/18/18at 18:00; Start 05/17/18 at 00:00 Naloxone HCl (Narcan) 0.4 mg STK-MED ONCE .ROUTE ; Start 05/17/18 at 22:00; Stop 05/18/18 at 12:35; Status DC Active Scripts Active Reported Coreg (Carvedilol) 6.25 Mg Tablet 1 Tab PO BID Potassium Chloride 10 Meq Capsule.er 10 Meq PO UD Zetia (Ezetimibe) 10 Mg Tablet 1 Tab PO DAILY AM Vitamin D2 (Ergocalciferol (Vitamin D2)) 50,000 Unit Capsule 50,000 Unit PO WEEKLY Lexapro (Escitalopram Oxalate) 20 Mg Tablet 40 Mg PO DAILY Trazodone Hcl 100 Mg Tablet 1 Tab PO QHS Dilaudid (Hydromorphone Hcl) 4 Mg Tablet 8 Mg PO PRN Q4HRS PRN Provigil (Modafinil) 100 Mg Tablet 200 Mg PO DAILY Cyclobenzaprine Hcl 10 Mg Tablet 10 Mg PO TID PRN Ranitidine Hcl 300 Mg Capsule 1 Cap PO HS Cymbalta (Duloxetine Hcl) 60 Mg Capsule.dr 60 Mg PO BID Vitals/I & O Vital Sign - Last 24 Hours 05/18/18 05/18/18 05/18/18 05/18/18 08:00 09:40 10:37 11:00 Temp 98.6 98.6 Pulse 84 83 Resp 20 B/P (MAP) 117/56 123/57 (79) Pulse Ox 99 O2 Delivery Bi-pap Bi-pap 05/18/18 05/18/18 05/18/18 05/18/18 15:30 15:51 17:00 18:19 Temp 98.0 98.0 Pulse 73 84 Resp 20 B/P (MAP) 99/58 (72) 120/59 120/59 (79) Pulse Ox 98 97 O2 Delivery Nasal Cannula Nasal Cannula Nasal Cannula O2 Flow Rate 1.0 2.0 2.0 05/18/18 05/18/18 05/18/18 05/19/18 19:30 19:30 22:23 03:04 Temp 97.6 98.5 97.8 97.6 98.5 97.8 Pulse 87 71 72 Resp 18 20 20 B/P (MAP) 100/54 (69) 100/55 (70) 125/72 (89) Pulse Ox 97 99 99 O2 Delivery Nasal Cannula Nasal Cannula Nasal Cannula Room Air O2 Flow Rate 2.0 2.0 2.0 2.0 05/19/18 05/19/18 05:34 07:02 Temp 98.3 98.3 Pulse 73 Resp 18 B/P (MAP) 108/54 (72) Pulse Ox 99 O2 Delivery Nasal Cannula Nasal Cannula O2 Flow Rate 2.0 2.0 Intake and Output 05/18/18 05/18/18 05/19/18 14:59 22:59 06:59 Intake Total 100 ml 220 ml Output Total 400 ml 525 ml 200 ml Balance -400 ml -425 ml 20 ml ZACHARIAH LOPEZ MD May 19, 2018 07:58
[2018-05-19] MEDS: FERROUS SULFATE 325 MG TABLET. PO SCH ×2 (08:00→17:00)
[2018-05-19] MEDS ORDERED: DEXTROSE 50% 25 GM / 50ML DISP.SYRIN. IV PRN (08:00)
[2018-05-19] MEDS: INSULIN LISPRO 300 UNITS/3 ML INSULN.PEN. SQ SCH ×2 (08:00→12:00)
[2018-05-19] MEDS: MULTIVITAMIN with MINERAL TABLET. PO SCH (09:12)
[2018-05-19] MEDS: SENNOSIDES/DOCUSATE 8.6/50MG TABLET. PO SCH (09:13)
[2018-05-19] MEDS: DULoxetine HCL 30 MG CAPSULE.DR PO SCH ×2 (09:13→21:24)
[2018-05-19] MEDS: EZETIMIBE 10 MG TABLET. PO SCH (09:13)
[2018-05-19] MEDS: CITALOPRAM 20 MG TABLET. PO SCH (09:13)
[2018-05-19] MEDS: CARVEDILOL 6.25 MG TABLET. PO SCH ×2 (09:14→17:00)
[2018-05-19 09:15] VITALS: BP 118/63
[2018-05-19] MEDS: ONDANSETRON PF 4 MG/2 ML VIAL. IV PRN (09:17)
[2018-05-19 11:30] VITALS: BP 113/68
[2018-05-19 15:35] VITALS: BP 114/62
--- NOTE | 2018-05-19 16:31 | NUR ---
Venecia was able to tolerate going to both rehab sessions and was able to walk to the rehab gym with immobilizer and walker. Dr. Benz here earlier and will resume her trazodone to help sleep. she is requesting to go to [place] tomorrow for rehab. city planner informed. fingerstick was 102; steroids wore off and no need to do fingersticks for blood sugars.
[2018-05-19] MEDS: TRIAMTERENE/HCTZ 37.5/25MG TABLET. PO SCH (17:00)
[2018-05-19 17:35] VITALS: BP 112/56
[2018-05-19] MEDS ORDERED: traZODone 100 MG TABLET. PO SCH (21:00)
[2018-05-19] MEDS: APIXABAN 2.5 MG TABLET. PO SCH (21:24)
[2018-05-19] MEDS: FAMOTIDINE 20 MG TABLET. PO SCH (21:24)
[2018-05-20] MEDS: HYDROmorphone 4 MG TABLET PO PRN ×3 (04:15→15:22)
[2018-05-20 06:03] VITALS: BP 104/57
[2018-05-20] MEDS: ACETAMINOPHEN 500 MG TABLET PO SCH ×3 (06:05→12:40)
[2018-05-20] MEDS: FERROUS SULFATE 325 MG TABLET. PO SCH (08:00)
--- NOTE | 2018-05-20 08:14 | PDOC ---
PROGRESS NOTES Chief Complaint Chief Complaint A/P: Hypoxic respiratory failure - significant respiratory history for CASTRO previously on QHS CPAP. I would reinitiate this and recommend she return to sleep medicine physician. She is rather opioid tolerant and has not has problems with anesthesia previously, so likely her CASTRO needs further treatment. Will have her back on CPAP QHS Repeat right total knee arthroplasty, status post explantation, debridement and insertion of antibiotic spacer on 04/16/2017 - now with repeat surgery, rehab plans per ortho Hypertension - cont meds, restart Maxzide today Hypercholesterolemia - cont statin Obesity - counseled on f/u with bariatric surgery Gastroesophageal reflux - cont PPI, may need liquid carafate if this worsens again Lap band in 05/2009 - needs f/u with bariatric after her weight gain Renal cancer s/p left nephrectomy - had good f/u Depression - may be a better candidate for wellbutrin or effexor with her h/o weight gain, though anxiety could worsen, could use buspar as well. We have discussed in depth and will use trazodone to sleep tonight FEN - ADAT PPX - rec lovenox unless she will be ambulating soon FULL CODE Inpatient for respiratory failure requiring BIPAP. Will likely need rehab services whether inpatient or home will be up to PT. Likely home tomorrow Thank you for this interesting consultation, we will continue to follow her while in house, call with any questions. [phone] or page overhead, [facility] as well History of Present Illness History of Present Illness Venecia is a 67-year-old female w/ PMHx hypertension, hypercholesterolemia, obesity, gastroesophageal reflux, lap band in 05/2009, CASTRO previously on CPAP, renal cancer s/p left nephrectomy, arthritis, depression, anxiety, and history of MRSA who previously had history of a right total knee arthroplasty in 2016 followed by a traumatic wound dehiscence following total knee arthroplasty and underwent explantation and revision for infection and subsequently had a periprosthetic fracture. 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 On 05/17/18 underwent extensive patellar reconstruction with allograft Achilles tendon and calcaneus bone block and after surgery experienced hypoxic respiratory failure that required BIPAP overnight and we are requested to assist in her care. On further review she began antidepressants and cycled through a number of medications last year and with her knee complications and the antidepressants she has gained 30-60 pounds and has cycled through losing weight and gaining it back. Has not had any lap band adjustments during this time. She notes that she did have CPAP nightly at home prior to her Lap band in 2009, but has since not required it, but her notes over the past month and half where she did gain more weight (30 pounds) that she has been snoring more and gasping at night. 05/19: Overnight she did not sleep well, is requesting a sleep aid. Her pain is reasonably controlled. She feels wiped out after PT. Has good spirits. IS bedside. No SOB or CP. passing flatus. No BM Still pretty sleepy today. Trazodone helped and blood pressure better with maxzide Plan discharge to rehabilitation facility today Eliquis 2.5mg twice a day plan 2 months Vitals Vitals Vital Signs Date Time Temp Pulse Resp B/P (MAP) Pulse Ox O2 Delivery O2 Flow Rate FiO2 05/20/18 06:03 98.6 77 16 104/57 (73) 96 Nasal Cannula 2.0 98.6 Physical Exam General: Alert, Oriented X3, Cooperative, No acute distress Heart: Regular rate, Normal S1, Normal S2, No murmurs Abdomen: Normal bowel sounds, Soft, No tenderness, No hepatosplenomegaly, No masses Extremities: No clubbing, No cyanosis, Normal pulses, Other (Right knee immobilized) Skin: No rashes, No breakdown Labs LABS Laboratory Tests Test 05/19/18 11:34 Glucose (Fingerstick) 102 mg/dL (70-99) Comment Review of Relevant I have reviewed the following items dieter (where applicable) has been applied. Labs Laboratory Tests Test 05/19/18 11:34 Glucose (Fingerstick) 102 mg/dL (70-99) Laboratory Tests Test 05/19/18 11:34 Glucose (Fingerstick) 102 mg/dL (70-99) Microbiology 05/17/18 Anaerobic/Aerobic Culture, Resulted Pending 05/17/18 Anaerobic Culture Result 1 (TANYA), Resulted Pending 05/17/18 Aerobic Culture, Resulted Pending 05/17/18 Aerobic Culture Result 1 (TANYA), Resulted Pending 05/17/18 Gram Stain - Final, Resulted 05/17/18 Gram Stain Result 1 (TANYA) - Final, Resulted 05/17/18 Gram Stain Result 2 (TANYA) - Final, Resulted Medications Current Medications Morphine Sulfate 5 mg/Ketorolac Tromethamine 30 mg/Ropivacaine 60 ml/ Epinephrine HCl 0.5 mg/Sodium Chloride 100 ml @ 100 mls/hr 1X ONCE INT ART Last administered on 05/17/18at 16:07; Start 05/17/18 at 06:00; Stop 05/17/18 at 06: 59; Status DC Fentanyl Citrate (Fentanyl 2ml Vial) 25 mcg PRN Q5MIN PRN IV MILD PAIN; Start 05/17/18 at 07:00; Stop 05/18/18 at 06:59; Status DC Fentanyl Citrate (Fentanyl 2ml Vial) 50 mcg PRN Q5MIN PRN IV MODERATE TO SEVERE PAIN; Start 05/17/18 at 07:00; Stop 05/18/18 at 06:59; Status DC Ringer's Solution 1,000 ml @ 30 mls/hr Q24H IV Last administered on 05/17/18at 11:34; Start 05/17/18 at 07:00; Stop 05/17/18 at 18:59; Status DC Lidocaine HCl (Xylocaine-Mpf 1% 2ml Vial) 2 ml PRN 1X PRN ID IV START; Start at 07:00; Stop 05/18/18 at 06:59; Status DC Prochlorperazine Edisylate (Compazine) 5 mg PACU PRN PRN IV NAUSEA, MRX1; Start 05/17/18 at 07:00; Stop 05/18/18 at 06:59; Status DC Meloxicam (Mobic) 15 mg 1X PREOP PRN PO PRIOR TO PROCEDURE Last administered on 05/17/18at 11:39; Start 05/17/18 at 06:00; Stop 05/17/18 at 18:00; Status DC Acetaminophen (Tylenol) 1,000 mg ONCE ONCE PO ; Start 05/17/18 at 06:00; Stop at 06:01; Status DC Clindamycin Phosphate 50 ml @ 100 mls/hr 1X PREOP PRN IV PRIOR TO PROCEDURE Last administered on 05/17/18at 15:15; Start 05/17/18 at 06:00; Stop 05/17/18 at 18: 00; Status DC Propofol 20 ml @ As Directed STK-MED ONCE IV ; Start 05/17/18 at 14:06; Stop 05/17 at 14:07; Status DC Lidocaine HCl (Lidocaine Pf 2% Vial) 5 ml STK-MED ONCE .ROUTE ; Start 05/17/18 at 14:06; Stop 05/17/18 at 14:07; Status DC Fentanyl Citrate (Fentanyl 2ml Vial) 100 mcg STK-MED ONCE .ROUTE ; Start at 14:06; Stop 05/17/18 at 14:07; Status DC Midazolam HCl (Versed) 2 mg STK-MED ONCE .ROUTE ; Start 05/17/18 at 14:06; Stop 05/17/18 at 14:07; Status DC Famotidine (Pepcid Vial) 20 mg STK-MED ONCE .ROUTE ; Start 05/17/18 at 15:31; Stop 05/17/18 at 15:32; Status DC Dexamethasone Sodium Phosphate (Decadron) 20 mg STK-MED ONCE .ROUTE ; Start 05/17 at 15:32; Stop 05/17/18 at 15:33; Status DC Ondansetron HCl (Zofran) 4 mg STK-MED ONCE .ROUTE ; Start 05/17/18 at 15:32; Stop 05/17/18 at 15:33; Status DC Hydromorphone HCl (Dilaudid) 2 mg STK-MED ONCE .ROUTE ; Start 05/17/18 at 15:52; Stop 05/17/18 at 19:29; Status DC Metoprolol Tartrate (Lopressor Vial) 5 mg STK-MED ONCE IVP ; Start 05/17/18 at 16 :15; Stop 05/17/18 at 16:16; Status DC Sevoflurane (Ultane) 60 ml STK-MED ONCE IH ; Start 05/17/18 at 16:16; Stop at 16:17; Status DC Hydralazine HCl (Apresoline Inj) 20 mg STK-MED ONCE .ROUTE ; Start 05/17/18 at 16 :58; Stop 05/17/18 at 16:59; Status DC Sevoflurane (Ultane) 90 ml STK-MED ONCE IH ; Start 05/17/18 at 17:33; Stop at 17:34; Status DC Hydromorphone HCl (Dilaudid) 2 mg PRN Q10MIN PRN IV PAIN; Start 05/17/18 at 17: 45 Hydromorphone HCl (Dilaudid) 2 mg STK-MED ONCE .ROUTE ; Start 05/17/18 at 17:44; Stop 05/17/18 at 17:45; Status DC Diphenhydramine HCl (Benadryl) 25 mg PRN Q6HRS PRN IV ITCHING; Start 05/17/18 at 18:00 Multivitamins (Thera M Plus) 1 tab DAILY PO Last administered on 05/19/18at 09:12 ; Start 05/18/18 at 09:00 Senna/Docusate Sodium (Senna Plus) 1 tab DAILY PO Last administered on at 09:13; Start 05/18/18 at 09:00 Ferrous Sulfate (Feosol) 325 mg BIDWMEALS PO ; Start 05/18/18 at 08:00 Sodium Chloride 1,000 ml @ 40 mls/hr Q24H IV Last administered on 05/18/18at 01: 49; Start 05/17/18 at 17:48; Stop 05/18/18 at 08:00; Status DC Vancomycin HCl 1 gm/Dextrose 250 ml @ 250 mls/hr 1X ONCE IV Last administered on 05/18/18at 03:29; Start 05/18/18 at 03:00; Stop 05/18/18 at 03:59; Status DC Magnesium Hydroxide (Milk Of Magnesia) 2,400 mg 1X PRN PRN PO CONSTIPATION; Start 05/18/18 at 06:00; Stop 05/19/18 at 05:59; Status DC Bisacodyl (Dulcolax Supp) 10 mg 1X PRN PRN NE CONSTIPATION; Start 05/18/18 at 16 :00; Stop 05/19/18 at 15:59; Status DC Calcium Carbonate/ Glycine (Tums) 500 mg PRN QID PRN PO INDIGESTION; Start 05/17 at 18:00 Sodium Chloride (Normal Saline Flush) 10 ml QSHIFT PRN IV AFTER MEDS AND BLOOD DRAWS; Start 05/17/18 at 18:00 Acetaminophen (Tylenol) 1,000 mg Q6H PO ; Start 05/18/18 at 09:00; Stop 05/18/18 at 09:00; Status DC Ondansetron HCl (Zofran) 4 mg Q6HRS IV Last administered on 05/18/18at 13:50; Start 05/18/18 at 00:00; Stop 05/18/18 at 18:01; Status DC Ondansetron HCl (Zofran Odt) 4 mg Q6HRS PO Last administered on 05/18/18at 06:07 ; Start 05/18/18 at 00:00; Stop 05/18/18 at 18:01; Status DC Ondansetron HCl (Zofran) 4 mg PRN Q6HRS PRN IV Nausea/vomiting, 1st choice Last administered on 05/19/18at 09:17; Start 05/18/18 at 12:00 Ondansetron HCl (Zofran Odt) 4 mg PRN Q6HRS PRN PO Nausea/vomiting, 1st choice ; Start 05/18/18 at 12:00 Dextrose (Dextrose 50%-Water Syringe) 12.5 gm PRN Q15MIN PRN IV SEE COMMENTS; Start 05/17/18 at 18:00 Hydromorphone HCl (Dilaudid) 4 mg PRN Q4HRS PRN PO MODERATE TO SEVERE PAIN Last administered on 05/20/18at 04:15; Start 05/17/18 at 18:00; Stop 05/20/18 at 17: 59 Hydromorphone HCl (Dilaudid) 1 mg PRN Q2HRS PRN IV SEVERE PAIN Last administered on 05/17/18 20:21; Start 05/17/18 at 18:00 Rivaroxaban (Xarelto) 10 mg DAILYWSUP PO Last administered on 05/18/18at 17:50; Start 05/18/18 at 17:00; Stop 05/19/18 at 13:25; Status DC Carvedilol (Coreg) 6.25 mg BIDWMEALS PO Last administered on 05/19/18at 09:14; Start 05/18/18 at 08:00 Cyclobenzaprine HCl (Flexeril) 10 mg PRN TID PRN PO BREAKTHROUGH PAIN; Start at 20:15 EZETIMIBE (Zetia) 10 mg DAILY PO Last administered on 05/19/18 09:13; Start 05/18/18 at 09:00 Duloxetine HCl (Cymbalta) 60 mg BID PO Last administered on 05/19/18 21:24; Start 05/17/18 at 21:00 Citalopram Hydrobromide (CeleXA) 40 mg DAILY PO Last administered on 05/19/18at 09:13; Start 05/18/18 at 09:00 Non-Formulary Medication (Modafinil (Provigil)) 200 mg DAILY PO ; Start 05/18/18 at 09:00; Stop 05/19/18 at 07:08; Status DC Famotidine (Pepcid) 40 mg QHS PO Last administered on 05/19/18 21:24; Start 05/17/18 at 21:00 Naloxone HCl (Narcan) 0.4 mg STK-MED ONCE .ROUTE ; Start 05/17/18 at 21:16; Stop 05/17/18 at 21:17; Status DC Naloxone HCl (Narcan) 0.4 mg PRN Q2MIN PRN IV SEE COMMENTS; Start 05/17/18 at 21 :45 Acetaminophen (Tylenol) 1,000 mg Q6H PO Last administered on 05/20/18at 06:05; Start 05/17/18 at 00:00 Naloxone HCl (Narcan) 0.4 mg STK-MED ONCE .ROUTE ; Start 05/17/18 at 22:00; Stop 05/18/18 at 12:35; Status DC Insulin Human Lispro (HumaLOG) 0-5 UNITS TIDWMEALS SQ ; Start 05/19/18 at 08:00; Stop 05/19/18 at 14:25; Status DC Dextrose (Dextrose 50%-Water Syringe) 12.5 gm PRN Q15MIN PRN IV SEE COMMENTS; Start 05/19/18 at 08:00; Status UNV Apixaban (Eliquis) 2.5 mg BID PO Last administered on 05/19/18 21:24; Start 05/19/18 at 21:00 Trazodone HCl (Desyrel) 100 mg QHS PO Last administered on 05/19/18 21:24; Start 05/19/18 at 21:00 Triamterene/HCTZ (Maxzide 37.5/ 25mg) 1 tab DAILY PO ; Start 05/19/18 at 17:00 Active Scripts Active Reported Coreg (Carvedilol) 6.25 Mg Tablet 1 Tab PO BID Potassium Chloride 10 Meq Capsule.er 10 Meq PO UD Zetia (Ezetimibe) 10 Mg Tablet 1 Tab PO DAILY AM Vitamin D2 (Ergocalciferol (Vitamin D2)) 50,000 Unit Capsule 50,000 Unit PO WEEKLY Lexapro (Escitalopram Oxalate) 20 Mg Tablet 40 Mg PO DAILY Trazodone Hcl 100 Mg Tablet 1 Tab PO QHS Dilaudid (Hydromorphone Hcl) 4 Mg Tablet 8 Mg PO PRN Q4HRS PRN Provigil (Modafinil) 100 Mg Tablet 200 Mg PO DAILY Cyclobenzaprine Hcl 10 Mg Tablet 10 Mg PO TID PRN Ranitidine Hcl 300 Mg Capsule 1 Cap PO HS Cymbalta (Duloxetine Hcl) 60 Mg Capsule.dr 60 Mg PO BID Vitals/I & O Vital Sign - Last 24 Hours 05/19/18 05/19/18 05/19/18 05/19/18 09:14 09:15 11:30 15:35 Pulse 78 78 68 74 B/P (MAP) 118/63 118/63 (81) 113/68 (83) 114/62 (79) 05/19/18 05/19/18 05/19/18 05/20/18 17:00 17:35 20:09 04:18 Temp 98.3 98.3 Pulse 77 77 Resp 18 B/P (MAP) 112/56 112/56 (74) Pulse Ox 92 98 O2 Delivery Room Air Nasal Cannula Nasal Cannula O2 Flow Rate 2.0 2.0 05/20/18 06:03 Temp 98.6 98.6 Pulse 77 Resp 16 B/P (MAP) 104/57 (73) Pulse Ox 96 O2 Delivery Nasal Cannula O2 Flow Rate 2.0 Intake and Output 05/19/18 05/19/18 05/20/18 14:59 22:59 06:59 Intake Total 200 ml 680 ml 200 ml Output Total 300 ml 75 ml 400 ml Balance -100 ml 605 ml -200 ml ZACHARIAH LOPEZ MD May 20, 2018 08:14
[2018-05-20] MEDS: CITALOPRAM 20 MG TABLET. PO SCH (08:34)
[2018-05-20] MEDS: APIXABAN 2.5 MG TABLET. PO SCH (08:35)
[2018-05-20] MEDS: DULoxetine HCL 30 MG CAPSULE.DR PO SCH (08:35)
[2018-05-20] MEDS: EZETIMIBE 10 MG TABLET. PO SCH (08:35)
[2018-05-20] MEDS: MULTIVITAMIN with MINERAL TABLET. PO SCH (08:35)
[2018-05-20] MEDS: SENNOSIDES/DOCUSATE 8.6/50MG TABLET. PO SCH (08:39)
[2018-05-20 08:44] VITALS: BP 114/64
--- NOTE | 2018-05-20 08:46 | PDOC ---
PROGRESS NOTES Subjective Subjective Problems overnight: Resting comfortably this morning pain is reasonably controlled she is getting up and around with a straight leg with therapy and some protected weightbearing Objective Vital Signs Vital Signs Date Time Temp Pulse Resp B/P (MAP) Pulse Ox O2 Delivery O2 Flow Rate FiO2 05/20/18 06:03 98.6 77 16 104/57 (73) 96 Nasal Cannula 2.0 98.6 Physical Exam Incision looks overall good she has moderate swelling distal neurovascular status intact extensor mechanism is intact Labs Laboratory Tests Test 05/19/18 11:34 Glucose (Fingerstick) 102 mg/dL (70-99) Laboratory Tests Test 05/19/18 11:34 Glucose (Fingerstick) 102 mg/dL (70-99) Assessment Assessment POD# [], S/P [right extensor mechanism reconstruction] Plan Plan of Care Plan discharge to rehabilitation facility today Eliquis 2.5mg twice a day plan 2 months Follow-up Dr. De La Cruz 2 weeks Weightbearing as tolerated with brace in extension all only avoid bending right knee and limited only to about 30 even getting into a car, brace set at these limits for protection LESLIE DE LA CRUZ MD May 20, 2018 08:46
[2018-05-20] MEDS ORDERED: ANTI-COAG MONITOR BY PHARMACY. MC PRN (10:15)
--- NOTE | 2018-05-20 10:54 | SNU/HH DC ---
DISCHARGE ORDERS DISCHARGE INFORMATION: CONDITION ON DISCHARGE: Stable CODE STATUS: Code Status: Full CUSTODIAL: SNF STAY <30 DAYS: Yes POST DISCHARGE ORDERS: ACTIVITY ORDERS: Other, see below (weightbearing as tolerated with brace locked in extension only. Avoid any knee flexion at all with an absolute maximum of 30 which the brace is set to, no weightbearing whatsoever with the brace unlocked) WEIGHT BEARING STATUS: Partial weight bearing (with protection via walker for support and safety) BATHING ORDERS: Shower-keep dressing dry, No Tub Bath until see WOUND/INCISION CARE: Ice to area for comfort, Do not change dressing (maintain jerome dressing unless saturated to edges of bandage or leaking out) CHECKS AFTER DISCHARGE: CHECKS AFTER DISCHARGE: Check your Temp as needed FOLLOW-UP: PHYSICIAN FOLLOW-UP: Jono 2 weeks ANTICOAGULATION F/U NEEDED: Eliquis 2.5 mg by mouth twice a day 2 months expected TREATMENT/EQUIPMENT ORDERS: ADAPTIVE EQUIPMENT NEEDED: Front wheeled walker Physical Therapy For: Evalulation/Treatment Occupational Therapy For: Evaluation/Treatment DISCHARGE MEDICATIONS: Home Meds Reported Medications Carvedilol (COREG ) 6.25 Mg Tablet, 1 TAB PO BID, #180 TAB 3 Refills 04/13/17 Potassium Chloride (POTASSIUM CHLORIDE) 10 Meq Capsule.er, 10 MEQ PO UD, TAB.SR 04/13/17 Ezetimibe (ZETIA) 10 Mg Tablet, 1 TAB PO DAILY AM, #30 TAB 5 Refills 04/13/17 Ergocalciferol (Vitamin D2) (VITAMIN D2) 50,000 Unit Capsule, 46569 UNIT PO WEEKLY, CAP 08/11/16 Escitalopram Oxalate (LEXAPRO) 20 Mg Tablet, 40 MG PO DAILY for ANTI-DEPRESSANT , TAB 0 Refills 08/11/16 Trazodone Hcl (TRAZODONE HCL) 100 Mg Tablet, 1 TAB PO QHS, #30 TAB 02/21/16 Hydromorphone Hcl (DILAUDID) 4 Mg Tablet, 8 MG PO PRN Q4HRS PRN for PAIN 02/21/16 Modafinil (PROVIGIL) 100 Mg Tablet, 200 MG PO DAILY 02/21/16 Cyclobenzaprine Hcl (CYCLOBENZAPRINE HCL) 10 Mg Tablet, 10 MG PO TID PRN for BREAKTHROUGH PAIN, TAB 04/23/15 Ranitidine Hcl (RANITIDINE HCL) 300 Mg Capsule, 1 CAP PO HS, #30 CAP 3 Refills 10/17/14 Duloxetine Hcl (CYMBALTA) 60 Mg Capsule., 60 MG PO BID for depression, CAP 10/05/13 LESLIE PEREZ MD May 20, 2018 10:53
[2018-05-20] MEDS ORDERED: APIX2.5T PO (11:53)
[2018-05-20] MEDS: TRIAMTERENE/HCTZ 37.5/25MG TABLET. PO SCH (12:00)
[2018-05-20] MEDS: CARVEDILOL 6.25 MG TABLET. PO SCH (12:00)
[2018-05-20] MEDS ORDERED: HYDR4TAB PO (12:12)
[2018-05-20 13:13] VITALS: BP 114/54
--- NOTE | 2018-05-20 14:23 | NUR ---
Report called to Rosy GARCIA at [facility].
--- NOTE | 2018-05-20 15:07 | DS ---
DATE OF DISCHARGE: 05/20/2018 PRINCIPAL DIAGNOSIS: Comminuted patellar fracture, status post total knee arthroplasty. PROCEDURE: Extensor mechanism reconstruction with allograft. DISPOSITION: [facility] facility. DISCHARGE INSTRUCTIONS: Follow up Dr. De La Cruz in 2 weeks. ACTIVITY: Weightbearing and protected weightbearing as tolerated with walker and knee brace locked in extension. I would prefer not to have any knee bending, but the brace is set to a maximum of 30 degrees in case she needs to get into a vehicle. Maintain SISSY dressing. Call for any redness, drainage, fever, chills, uncontrolled pain or other problems. DISPOSITION MEDICATIONS: Include Dilaudid 4 mg p.o. q.4h. p.r.n. pain, Eliquis 2.5 mg p.o. b.i.d. times planned 2 months. BRIEF DESCRIPTION OF HOSPITAL COURSE: The patient underwent an uncomplicated extensor mechanism reconstruction of her right knee. Postoperatively, on the floor apparently had an episode with decreased respirations that reversed with Narcan. She was observed overnight and for the morning in a telemetry bed initially with some BiPAP, which she rapidly weaned off of and then went to the regular joint floor progressed through some physical therapy, was able to tolerate weightbearing as tolerated with the knee in extension and otherwise had reasonable pain control. Her dressing now is clean, dry and intact with no signs of drainage. She has a mild knee effusion. Intact distal neurovascular status and she otherwise remained medically stable following this initial episode requiring Narcan, which I think was an oversedation and she was discharged to a alf facility in stable condition. LESLIE DE LA CRUZ MD DR: VINCE/sherry JOB#: [id number] / [id number] BLANCA Bermudez MD
--- NOTE | 2018-05-20 15:25 | NUR ---
Discharged to [facility] by w/mitzy thompson
== END 2018-05-20 15:25 | DRG 488 ==
LOC: OPSVCIP 10:53 → 4 SOUTHEST 19:15 → 2 SOUTH 22:49 → 4 SOUTHEST 05-18 15:27
PROVIDERS: ADMIT Orthopaedic Surgery; ATTEND Orthopaedic Surgery
PROC: 5A09357 Assistance with Respiratory Ventilation, Less than 24 Consecutive Hours, Continuous Positive Airway Pressure (ICD-10-PCS; 2018-05-17)
PROC: 0QUD0KZ Supplement Right Patella with Nonautologous Tissue Substitute, Open Approach (ICD-10-PCS; principal; 2018-05-17 12:00)
DX: S82.041A Displaced comminuted fracture of right patella, initial encounter for closed fracture (principal); J96.91 Respiratory failure, unspecified with hypoxia; E78.00 Pure hypercholesterolemia, unspecified; E66.9 Obesity, unspecified; F32.9 Major depressive disorder, single episode, unspecified; G47.33 Obstructive sleep apnea (adult) (pediatric); I10 Essential (primary) hypertension; M19.90 Unspecified osteoarthritis, unspecified site; F41.9 Anxiety disorder, unspecified; K21.9 Gastro-esophageal reflux disease without esophagitis; Z96.651 Presence of right artificial knee joint; Z82.49 Family history of ischemic heart disease and other diseases of the circulatory system; Z85.528 Personal history of other malignant neoplasm of kidney; Z86.14 Personal history of Methicillin resistant Staphylococcus aureus infection; Z90.710 Acquired absence of both cervix and uterus; Z98.84 Bariatric surgery status; Z90.5 Acquired absence of kidney; Z88.6 Allergy status to analgesic agent; Z88.2 Allergy status to sulfonamides; Z88.8 Allergy status to other drugs, medicaments and biological substances
CPT/HCPCS: 36415; 73560; 80048; 82962; 85007; 85025; 86850; 86900; 86901; 87071; 87075; 94660; A7015; C1713; C1763; J0171; J0360; J1100; J1170; J1815; J1885; J2001; J2250; J2270; J2310; J2405; J2704; J2795; J3010; J3370; J3490; J7030; J7120; Q0162; 97116; 97150; 97535; C1769

== ENCOUNTER 2018-06-08 16:47 | Inpatient (IN) | payer MEDICARE ==
[~2018-06-08] VITALS: Ht 162.6 cm; Wt 100.9 kg
[~2018-06-08 16:47] MED LIST changes: -CIPR250T30 PO; -LINE600T PO
[2018-06-08] MEDS ORDERED: CALCIUM CARBONATE 500 MG TAB.CHEW PO PRN (17:45)
[2018-06-08] MEDS ORDERED: VANCOMYCIN PER PHARMACY MC PRN (17:45)
[2018-06-08] MEDS ORDERED: DEXTROSE 50% 25 GM / 50ML DISP.SYRIN. IV PRN (17:45)
[2018-06-08] MEDS ORDERED: 0.9 % SODIUM CHLORIDE 10 ML DISP.SYRIN. IV PRN (17:45)
[2018-06-08 17:50] VITALS: BP 142/64
[2018-06-08] MEDS: ONDANSETRON ODT 4 MG TAB.RAPDIS. PO SCH (18:00)
[2018-06-08] MEDS ORDERED: VANCOMYCIN 2 GM in IV NORMAL SALINE 500ML BAG 500 ML IV ONE (18:00)
[2018-06-08] MEDS: ONDANSETRON PF 4 MG/2 ML VIAL. IV SCH (18:00)
--- NOTE | 2018-06-08 18:13 | HP ---
ADMIT DATE: 06/08/2018 ORTHOPEDIC CONSULTATION/ADMISSION HISTORY AND PHYSICAL HISTORY OF PRESENT ILLNESS: The patient is a followup from an extensor mechanism reconstruction of her right knee and was discharged to a rehabilitation facility, but apparently developed some serous drainage from the distal portion of her wound last , 6 days ago. According to her, the rehabilitation facility was supposed to call about the drainage, but did not call her office and the patient herself called last night when she got home. When I got a message today, I immediately got in contact with her and asked her to come in for clinic evaluation. Her drainage was cultured today. She also reports a fever to about 99 degrees, normally runs about 97 degrees, has minimal pain to the right knee and has been reportedly keeping in her brace, keeping to minimal flexion. PAST MEDICAL HISTORY: Significant for inflammatory bowel syndrome, hypertension, esophageal reflux, depression, menopause, chronic back and neck pain, type 2 diabetes, pyelonephritis, hyperlipidemia, sinusitis, lower GI bleed, long-term tobacco use, pulmonary embolism with DVT, sleep disorders. PAST SURGICAL HISTORY: Knee replacement and subsequent extensor reconstruction most recently for a periprosthetic patellar fracture that left no patellar tissue to heal. She is post lap-band surgery, colonoscopy, back surgeries, cervical and lumbar surgeries, spinal stimulator, hysterectomy, cholecystectomy. FAMILY HISTORY: Father of kidney problems. Brother with blindness, hypertension and heart attack, . Multiple strokes and cancer in her family as well. SOCIAL HISTORY: She is a current smoker, smokes every day with a [id number] history. Denies any drug use. Occasional alcohol use. She is , lives at home with her and is retired. REVIEW OF SYSTEMS: Significant for the drainage since last and recent fever today. PHYSICAL EXAMINATION: HEENT: Atraumatic, normocephalic. HEART: Regular rate and rhythm. LUNGS: Clear to auscultation bilaterally. ABDOMEN: Benign. EXTREMITIES: Examination of right knee reveals no redness or erythema, but she does have serous drainage from the distal portion of her wound. Extensor mechanism appears intact. Patellar tracking appears good. IMPRESSION: Right knee wound drainage, starting following extensor mechanism reconstruction. TREATMENT PLAN: I arranged for hospital admission, got cultures intraoperatively that were sent off to the lab today, ordered CBC with differential, C-reactive protein, sedimentation rate for a baseline and ordered an Infectious Disease consult pending cultures. She may need to undergo exploration and at the very least some prophylactic IV antibiotics, currently ordered vancomycin per pharmacy. LESLIE PEREZ MD DR: VINCE/sherry JOB#: [id number] / [id number]
[2018-06-08 18:50] LABS: BASO # 0.1 x10^3/uL (0.0-0.2); BASO % 1 % (0-3); EOS # 0.4 x10^3/uL (0.0-0.7); EOS % 5 % (0-3); HEMATOCRIT 40.3 % (36.0-47.0); HEMOGLOBIN 13.6 g/dL (12.0-15.5); LYMPH # 1.9 x10^3/uL (1.0-4.8); LYMPH % 25 % (24-48); MEAN CORPUSCULAR HEMOGLOBIN 29 pg (25-35); MEAN CORPUSCULAR HGB CONC 34 g/dL (31-37); MEAN CORPUSCULAR VOLUME 86 fL (79-100); MONO # 0.5 x10^3/uL (0.0-1.1); MONO % 7 % (0-9); NEUT # 4.6 x10^3uL (1.8-7.7); NEUT % 62 % (31-73); PLATELET COUNT 332 x10^3/uL (140-400); RED BLOOD COUNT 4.71 x10^6/uL (3.50-5.40); RED CELL DISTRIBUTION WIDTH 13.7 % (11.5-14.5); WHITE BLOOD COUNT 7.4 x10^3/uL (4.0-11.0)
[2018-06-08 19:00] VITALS: BP 143/51
[2018-06-08 19:00] LABS: CALCIUM 9.5 mg/dL (8.5-10.1); CREATININE 1.2 mg/dL (0.6-1.0); GFR 44.7
[2018-06-08 19:10] LABS: POTASSIUM 2.9 mmol/L (3.5-5.1)
[2018-06-08] MEDS ORDERED: POTASSIUM CHLORIDE 20 MEQ TABLET.ER. PO ONE (19:30)
--- NOTE | 2018-06-08 19:41 | PDOC ---
Provider Note Provider Note Pt seen and examined ID consult dictated DEEDEE GREEN MD Jun 08, 2018 19:41
--- NOTE | 2018-06-08 19:45 | RAD ---
EXAM: AP and crosstable lateral views of the right knee DATE: 06/08/2018 5:31 PM INDICATION: POST OP KNEE OP WAS PERFORMED ON May. COMPARISON: 05/17/2018 FINDINGS/ IMPRESSION: Changes of longstem right total knee arthroplasty with medial femoral sideplate and screw fixation, in stable alignment without definite interval hardware complication. Small right knee joint effusion. Electronically signed by: Adalberto Coles MD (06/08/2018 7:42 PM) [facility]
--- NOTE | 2018-06-08 19:48 | NUR ---
Pt admitted from Dr. De La Cruz's office. A&O X4, pt tearful d/t situation, c/o pain 10. Dressing removed and pictures were taken. Cleansed site with chloraprep and applied 4X4, ABD, kerlix and brace. Completed admission assessment. Meal tray ordered. Call light within reach. Will continue to monitor.
[2018-06-08] MEDS: MEROPENEM 500 MG in IV NORMAL SALINE 50ML 50 ML IV SCH (20:41)
[2018-06-08] MEDS: DAPTOmycin (GENERIC) IVPB 600 MG in IV NORMAL SALINE 50ML 50 ML IV SCH (22:12)
[2018-06-08] MEDS ORDERED: HYDROmorphone 4 MG TABLET PO PRN (22:45)
[2018-06-08 23:00] VITALS: BP 124/40
[2018-06-08] MEDS: traZODone 100 MG TABLET. PO SCH (23:18)
[2018-06-08] MEDS: DULoxetine HCL 30 MG CAPSULE.DR PO SCH (23:18)
[2018-06-08] MEDS: FAMOTIDINE 20 MG TABLET. PO SCH (23:18)
[2018-06-08] MEDS: HYDROmorphone 4 MG TABLET PO PRN (23:21)
[2018-06-09] MEDS: ONDANSETRON PF 4 MG/2 ML VIAL. IV SCH ×3 (00:33→12:00)
[2018-06-09] MEDS: MEROPENEM 500 MG in IV NORMAL SALINE 50ML 50 ML IV SCH ×4 (00:33→17:41)
[2018-06-09] MEDS: HYDROmorphone 4 MG TABLET PO PRN (00:37)
[2018-06-09 03:00] VITALS: BP 124/58
[2018-06-09 04:33] LABS: BASO % 1 % (0-3); EOS # 0.4 x10^3/uL (0.0-0.7); EOS % 6 % (0-3); HEMATOCRIT 38.3 % (36.0-47.0); HEMOGLOBIN 12.2 g/dL (12.0-15.5); LYMPH # 2.1 x10^3/uL (1.0-4.8); LYMPH % 32 % (24-48); MEAN CORPUSCULAR HEMOGLOBIN 28 pg (25-35); MEAN CORPUSCULAR HGB CONC 32 g/dL (31-37); MEAN CORPUSCULAR VOLUME 87 fL (79-100); MONO # 0.4 x10^3/uL (0.0-1.1); MONO % 6 % (0-9); NEUT # 3.6 x10^3uL (1.8-7.7); NEUT % 56 % (31-73); PLATELET COUNT 309 x10^3/uL (140-400); RED BLOOD COUNT 4.42 x10^6/uL (3.50-5.40); RED CELL DISTRIBUTION WIDTH 14.3 % (11.5-14.5); WHITE BLOOD COUNT 6.5 x10^3/uL (4.0-11.0)
[2018-06-09 05:01] LABS: CREATININE 1.1 mg/dL (0.6-1.0); GFR 49.4; POTASSIUM 3.5 mmol/L (3.5-5.1)
[2018-06-09] MEDS: ONDANSETRON ODT 4 MG TAB.RAPDIS. PO SCH ×3 (06:00→12:00)
[2018-06-09] MEDS ORDERED: MAGNESIUM HYDROXIDE 2,400 MG/30 ML ORAL.SUSP. PO PRN (06:00)
[2018-06-09 07:00] VITALS: BP 117/50
[2018-06-09] MEDS: EZETIMIBE 10 MG TABLET. PO SCH (07:59)
[2018-06-09] MEDS: CARVEDILOL 6.25 MG TABLET. PO SCH ×2 (07:59→17:40)
[2018-06-09] MEDS: POTASSIUM CHLORIDE 10 MEQ TABLET.ER. PO SCH (07:59)
[2018-06-09] MEDS ORDERED: INSULIN LISPRO 300 UNITS/3 ML INSULN.PEN. SQ SCH (08:00)
[2018-06-09] MEDS: DULoxetine HCL 30 MG CAPSULE.DR PO SCH ×2 (08:00→21:15)
[2018-06-09] MEDS: CITALOPRAM 20 MG TABLET. PO SCH (08:00)
--- NOTE | 2018-06-09 08:54 | PDOC ---
Infectious Disease Note Subjective: Subjective Pt felt feverish last night but then fever broke with sweating Cont to have drainage from the rt knee incision site no chills, n/v//d/abdo pain ROS: ROS Negative except for above. Vital Signs: Vital Signs Vital Signs Date Time Temp Pulse Resp B/P (MAP) Pulse Ox O2 Delivery O2 Flow Rate FiO2 06/09/18 07:59 64 117/50 06/09/18 07:00 97.7 18 92 Room Air 97.7 Physical Exam: PHYSICAL EXAM Gen. alert oriented 3 female sitting upright in bed in no acute distress HEENT: Atraumatic, normocephalic. no icterus or thrush Neck supple no JVD HEART: Regular rate and rhythm. LUNGS: Clear to auscultation bilaterally. 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 Psychiatric appropriate mood Skin no generalized rash Medications: Inpatient Meds: Current Medications Medications (Trade) Dose Ordered Sig/Hina Start Time Stop Time Status Last Admin Dose Admin Calcium Carbonate/ Glycine (Tums) 500 mg PRN QID PRN 06/08/18 17:45 Carvedilol (Coreg) 6.25 mg BIDWMEALS 06/09/18 08:00 06/09/18 07:59 6.25 MG Citalopram Hydrobromide (CeleXA) 80 mg DAILY 06/09/18 09:00 06/09/18 08:00 80 MG Daptomycin 600 mg/ Sodium Chloride 50 ml @ 100 mls/hr Q24H 06/08/18 20:30 06/08/18 22:12 100 MLS/HR Dextrose (Dextrose 50%-Water Syringe) 12.5 gm PRN Q15MIN PRN 06/08/18 17:45 Duloxetine HCl (Cymbalta) 60 mg BID 06/08/18 22:45 06/09/18 08:00 60 MG Ergocalciferol (Vitamin D2) 50,000 unit QSU 06/12/18 16:00 EZETIMIBE (Zetia) 10 mg DAILY 06/09/18 09:00 06/09/18 07:59 10 MG Famotidine (Pepcid) 40 mg HS 06/08/18 22:45 06/08/18 23:18 40 MG Hydromorphone HCl (Dilaudid) 4 mg PRN Q4HRS PRN 06/08/18 22:45 Insulin Human Lispro (HumaLOG) 0-5 UNITS TIDWMEALS 06/09/18 08:00 Magnesium Hydroxide (Milk Of Magnesia) 2,400 mg 1X PRN PRN 06/09/18 06:00 06/10/18 05:59 Meropenem 500 mg/ Sodium Chloride 50 ml @ 100 mls/hr Q6HRS 06/08/18 20:00 06/09/18 06:29 100 MLS/HR Ondansetron HCl (Zofran Odt) 4 mg PRN Q6HRS PRN 06/09/18 12:00 Ondansetron HCl (Zofran) 4 mg PRN Q6HRS PRN 06/09/18 12:00 Potassium Chloride (Klor-Con) 10 meq DAILYWBKFT 06/09/18 08:00 06/09/18 07:59 10 MEQ Sodium Chloride (Normal Saline Flush) 10 ml QSHIFT PRN 06/08/18 17:45 Trazodone HCl (Desyrel) 100 mg QHS 06/08/18 22:45 06/08/18 23:18 100 MG Vancomycin HCl (Vanco Per Pharmacy) 1 each PRN DAILY PRN 06/08/18 17:45 06/08/18 19:10 DC Vancomycin HCl 2 gm/Sodium Chloride 500 ml @ 250 mls/hr 1X ONCE 06/08/18 18:00 06/08/18 19:10 DC Labs: Lab Laboratory Tests Test 06/08/18 18:45 06/08/18 20:15 06/09/18 03:30 06/09/18 07:24 White Blood Count 7.4 x10^3/uL (4.0-11.0) 6.5 x10^3/uL (4.0-11.0) Red Blood Count 4.71 x10^6/uL (3.50-5.40) 4.42 x10^6/uL (3.50-5.40) Hemoglobin 13.6 g/dL (12.0-15.5) 12.2 g/dL (12.0-15.5) Hematocrit 40.3 % (36.0-47.0) 38.3 % (36.0-47.0) Mean Corpuscular Volume 86 fL (79-100) 87 fL (79-100) Mean Corpuscular Hemoglobin 29 pg (25-35) 28 pg (25-35) Mean Corpuscular Hemoglobin Concent 34 g/dL (31-37) 32 g/dL (31-37) Red Cell Distribution Width 13.7 % (11.5-14.5) 14.3 % (11.5-14.5) Platelet Count 332 x10^3/uL (140-400) 309 x10^3/uL (140-400) Neutrophils (%) (Auto) 62 % (31-73) 56 % (31-73) Lymphocytes (%) (Auto) 25 % (24-48) 32 % (24-48) Monocytes (%) (Auto) 7 % (0-9) 6 % (0-9) Eosinophils (%) (Auto) 5 % (0-3) 6 % (0-3) Basophils (%) (Auto) 1 % (0-3) 1 % (0-3) Neutrophils # (Auto) 4.6 x10^3uL (1.8-7.7) 3.6 x10^3uL (1.8-7.7) Lymphocytes # (Auto) 1.9 x10^3/uL (1.0-4.8) 2.1 x10^3/uL (1.0-4.8) Monocytes # (Auto) 0.5 x10^3/uL (0.0-1.1) 0.4 x10^3/uL (0.0-1.1) Eosinophils # (Auto) 0.4 x10^3/uL (0.0-0.7) 0.4 x10^3/uL (0.0-0.7) Basophils # (Auto) 0.1 x10^3/uL (0.0-0.2) 0.0 x10^3/uL (0.0-0.2) Erythrocyte Sedimentation Rate 12 (0-25) Sodium Level 141 mmol/L (136-145) 141 mmol/L (136-145) Potassium Level 2.9 mmol/L (3.5-5.1) 3.5 mmol/L (3.5-5.1) Chloride Level 101 mmol/L (98-107) 103 mmol/L (98-107) Carbon Dioxide Level 33 mmol/L (21-32) 30 mmol/L (21-32) Anion Gap 7 (6-14) 8 (6-14) Blood Urea Nitrogen 20 mg/dL (7-20) 17 mg/dL (7-20) Creatinine 1.2 mg/dL (0.6-1.0) 1.1 mg/dL (0.6-1.0) Estimated GFR (Cockcroft-Gault) 44.7 49.4 Glucose Level 109 mg/dL (70-99) 106 mg/dL (70-99) Calcium Level 9.5 mg/dL (8.5-10.1) 9.0 mg/dL (8.5-10.1) C-Reactive Protein, Quantitative 11.5 mg/L (0-3.3) Glucose (Fingerstick) 143 mg/dL (70-99) 95 mg/dL (70-99) Objective: Assessment: RT postsurgical knee site pain ,swelling and drainage concern for infection cult neg so far lt nephrectomy, CKD Multiple drug allergies RT PJI Knee infection 04/2017 treated with explant of HW, reimplant,healed well last summer Rt Achilles tendon repair in 2015 with infection Obesity Chronic back pain Depression, Anxiety Plan: Plan of Care Dapto, merrem f/u c/s ortho following,may need I and D f/u labs cont supportive care DEEDEE GREEN MD Jun 09, 2018 08:54
--- NOTE | 2018-06-09 09:14 | NUR ---
Spoke with Dr. De La Cruz to clarify some orders, pt states she is only prediabetic and does not take any medication for diabetes, or check her blood sugars at home. OK to DC and change to regular diet. Pt requested biscuits and gravy, and ate too fast (hx of GBP) and vomited most of her meal. Dr. De La Cruz said knee is likely going to require surgery, and is planning on OR 06/10/18, unless the OR has room for her today. Hold off on wound care and therapies for now until post op. Measured depth of opening in R knee incision, depth of 1.7cm, unable to explore further for tunnels/undermining d/t pain at site. Large amount of clear pinkish fluid draining from site. Dr. De La Cruz notified.
--- NOTE | 2018-06-09 09:24 | PDOC2 ---
CONSULT Date of Consult Date of Consult DATE: 06/09/18 TIME: 09:10 Reason for Consult Reason for Consult: med management Referring Physician Referring Physician: annabella Identification/Chief Complaint Chief Complaint knee swelling and pain and drainage Source Source: Chart review, Patient History of Present Illness Reason for Visit: Ms. Baig is here for knee pain, swelling and drainage, Per Dr. De La Cruz, had a recent extensor mechanism reconstruction of her right knee and was discharged to a rehabilitation facility. She had additional swelling and now drainage that wont stop. low grade temp change to 99 range pain is stable from chronic prev. mostly, she is upset about cardiac diet, wants to change to regular , Past Medical History Cardiovascular: HTN Pulmonary: No pertinent hx GI: GERD, Other Heme/Onc: Cancer Hepatobiliary: No pertinent hx Psych: Anxiety, Depression Rheumatologic: No pertinent hx Infectious disease: No pertinent hx Renal/: Renal Ca. Endocrine: No pertinent hx Past Surgical History Past Surgical History: Cataract Removal, Total knee replacement, Tonsillectomy , Hysterectomy, Other (back surg, partial nephrectomy) Family History Family History: Hypertension Social History No ALCOHOL: rare Drugs: None Lives: with Family Domestic Violence: Neg Current Medications Current Medications Current Medications Magnesium Hydroxide (Milk Of Magnesia) 2,400 mg 1X PRN PRN PO CONSTIPATION; Start 06/09/18 at 06:00; Stop 06/10/18 at 05:59 Calcium Carbonate/ Glycine (Tums) 500 mg PRN QID PRN PO INDIGESTION; Start at 17:45 Sodium Chloride (Normal Saline Flush) 10 ml QSHIFT PRN IV AFTER MEDS AND BLOOD DRAWS; Start 06/08/18 at 17:45 Ondansetron HCl (Zofran) 4 mg Q6HRS IV Last administered on 06/09/18at 06:29; Start 06/08/18 at 18:00; Stop 06/09/18 at 12:01 Ondansetron HCl (Zofran Odt) 4 mg Q6HRS PO ; Start 06/08/18 at 18:00; Stop 06/09 at 12:01 Ondansetron HCl (Zofran) 4 mg PRN Q6HRS PRN IV Nausea/vomiting, 1st choice; Start 06/09/18 at 12:00 Ondansetron HCl (Zofran Odt) 4 mg PRN Q6HRS PRN PO Nausea/vomiting, 1st choice ; Start 06/09/18 at 12:00 Insulin Human Lispro (HumaLOG) 0-5 UNITS TIDWMEALS SQ ; Start 06/09/18 at 08:00 Dextrose (Dextrose 50%-Water Syringe) 12.5 gm PRN Q15MIN PRN IV SEE COMMENTS; Start 06/08/18 at 17:45 Hydromorphone HCl (Dilaudid) 4 mg PRN Q4HRS PRN PO PAIN Last administered on at 23:21; Start 06/08/18 at 17:45 Vancomycin HCl (Vanco Per Pharmacy) 1 each PRN DAILY PRN MC SEE COMMENTS; Start 06/08/18 at 17:45; Stop 06/08/18 at 19:10; Status DC Vancomycin HCl 2 gm/Sodium Chloride 500 ml @ 250 mls/hr 1X ONCE IV ; Start at 18:00; Stop 06/08/18 at 19:10; Status DC Potassium Chloride (Klor-Con) 40 meq 1X ONCE PO Last administered on at 20:36; Start 06/08/18 at 19:30; Stop 06/08/18 at 19:35; Status DC Daptomycin 600 mg/ Sodium Chloride 50 ml @ 100 mls/hr Q24H IV Last administered on 06/08/18at 22:12; Start 06/08/18 at 20:30 Meropenem 500 mg/ Sodium Chloride 50 ml @ 100 mls/hr Q6HRS IV Last administered on 06/09/18at 06:29; Start 06/08/18 at 20:00 Carvedilol (Coreg) 6.25 mg BIDWMEALS PO Last administered on 06/09/18at 07:59; Start 06/09/18 at 08:00 Ergocalciferol (Vitamin D2) 50,000 unit QSU PO ; Start 06/12/18 at 16:00 EZETIMIBE (Zetia) 10 mg DAILY PO Last administered on 06/09/18at 07:59; Start at 09:00 Potassium Chloride (Klor-Con) 10 meq DAILYWBKFT PO Last administered on at 07:59; Start 06/09/18 at 08:00 Trazodone HCl (Desyrel) 100 mg QHS PO Last administered on 06/08/18at 23:18; Start 06/08/18 at 22:45 Duloxetine HCl (Cymbalta) 60 mg BID PO Last administered on 06/09/18at 08:00; Start 06/08/18 at 22:45 Citalopram Hydrobromide (CeleXA) 80 mg DAILY PO Last administered on 06/09/18at 08:00; Start 06/09/18 at 09:00 Hydromorphone HCl (Dilaudid) 4 mg PRN Q4HRS PRN PO PAIN; Start 06/08/18 at 22: 45 Famotidine (Pepcid) 40 mg HS PO Last administered on 06/08/18at 23:18; Start at 22:45 Active Scripts Active Reported Hydromorphone Hcl 4 Mg Tablet 4 Mg PO Q4HRS PRN Eliquis (Apixaban) 2.5 Mg Tablet 2.5 Mg PO BID Coreg (Carvedilol) 6.25 Mg Tablet 1 Tab PO BID Potassium Chloride 10 Meq Capsule.er 10 Meq PO UD Zetia (Ezetimibe) 10 Mg Tablet 1 Tab PO DAILY AM Vitamin D2 (Ergocalciferol (Vitamin D2)) 50,000 Unit Capsule 50,000 Unit PO QSU Lexapro (Escitalopram Oxalate) 20 Mg Tablet 40 Mg PO DAILY Trazodone Hcl 100 Mg Tablet 1 Tab PO QHS Ranitidine Hcl 300 Mg Capsule 1 Cap PO HS Cymbalta (Duloxetine Hcl) 60 Mg Capsule.dr 60 Mg PO BID Allergies Allergies: Coded Allergies: fentanyl (Verified Allergy, Severe, 06/08/18) "went out of it" Sulfa (Sulfonamide Antibiotics) (Verified Allergy, Intermediate, Nausea and Vomiting, 05/17/18) rash also cephalexin (Verified Allergy, Intermediate, Nausea and Vomiting, 05/17/18) rash and hives also gabapentin (Verified Allergy, Intermediate, Itching, 05/17/18) rash also hydrocodone (Verified Allergy, Intermediate, Tolerates hydromorphone, ) metformin (Verified Allergy, Intermediate, 05/17/18) oxymorphone (Verified Allergy, Intermediate, 05/17/18) Tolerates hydromorphone bupropion (Verified Adverse Reaction, Intermediate, 05/10/18) "MAKES HER CRAZY" oxycodone (Verified Adverse Reaction, Intermediate, Nausea and Vomiting, ) rosuvastatin (Verified Adverse Reaction, Intermediate, 05/10/18) MUSCLE ACHING Physical Exam General: Alert, Oriented X3, Cooperative, No acute distress HEENT: EOMI, Mucous membr. moist/pink Lungs: Clear to auscultation, Normal air movement Heart: Regular rate, Gallops Extremities: No cyanosis Neuro: Normal gait, Strength at 5/5 X4 ext, Normal tone, Sensation intact, Cranial nerves 3-12 NL Psych/Mental Status: Mental status NL MUSCULOSKELETAL: Other (swelling, some drainage from small area distal to patella) Vitals VITALS Vital Signs Date Time Temp Pulse Resp B/P (MAP) Pulse Ox O2 Delivery O2 Flow Rate FiO2 06/09/18 07:59 64 117/50 06/09/18 07:00 97.7 18 92 Room Air 97.7 Labs Labs Laboratory Tests Test 06/08/18 18:45 06/08/18 20:15 06/09/18 03:30 06/09/18 07:24 White Blood Count 7.4 x10^3/uL (4.0-11.0) 6.5 x10^3/uL (4.0-11.0) Red Blood Count 4.71 x10^6/uL (3.50-5.40) 4.42 x10^6/uL (3.50-5.40) Hemoglobin 13.6 g/dL (12.0-15.5) 12.2 g/dL (12.0-15.5) Hematocrit 40.3 % (36.0-47.0) 38.3 % (36.0-47.0) Mean Corpuscular Volume 86 fL (79-100) 87 fL (79-100) Mean Corpuscular Hemoglobin 29 pg (25-35) 28 pg (25-35) Mean Corpuscular Hemoglobin Concent 34 g/dL (31-37) 32 g/dL (31-37) Red Cell Distribution Width 13.7 % (11.5-14.5) 14.3 % (11.5-14.5) Platelet Count 332 x10^3/uL (140-400) 309 x10^3/uL (140-400) Neutrophils (%) (Auto) 62 % (31-73) 56 % (31-73) Lymphocytes (%) (Auto) 25 % (24-48) 32 % (24-48) Monocytes (%) (Auto) 7 % (0-9) 6 % (0-9) Eosinophils (%) (Auto) 5 % (0-3) 6 % (0-3) Basophils (%) (Auto) 1 % (0-3) 1 % (0-3) Neutrophils # (Auto) 4.6 x10^3uL (1.8-7.7) 3.6 x10^3uL (1.8-7.7) Lymphocytes # (Auto) 1.9 x10^3/uL (1.0-4.8) 2.1 x10^3/uL (1.0-4.8) Monocytes # (Auto) 0.5 x10^3/uL (0.0-1.1) 0.4 x10^3/uL (0.0-1.1) Eosinophils # (Auto) 0.4 x10^3/uL (0.0-0.7) 0.4 x10^3/uL (0.0-0.7) Basophils # (Auto) 0.1 x10^3/uL (0.0-0.2) 0.0 x10^3/uL (0.0-0.2) Erythrocyte Sedimentation Rate 12 (0-25) Sodium Level 141 mmol/L (136-145) 141 mmol/L (136-145) Potassium Level 2.9 mmol/L (3.5-5.1) 3.5 mmol/L (3.5-5.1) Chloride Level 101 mmol/L (98-107) 103 mmol/L (98-107) Carbon Dioxide Level 33 mmol/L (21-32) 30 mmol/L (21-32) Anion Gap 7 (6-14) 8 (6-14) Blood Urea Nitrogen 20 mg/dL (7-20) 17 mg/dL (7-20) Creatinine 1.2 mg/dL (0.6-1.0) 1.1 mg/dL (0.6-1.0) Estimated GFR (Cockcroft-Gault) 44.7 49.4 Glucose Level 109 mg/dL (70-99) 106 mg/dL (70-99) Calcium Level 9.5 mg/dL (8.5-10.1) 9.0 mg/dL (8.5-10.1) C-Reactive Protein, Quantitative 11.5 mg/L (0-3.3) Glucose (Fingerstick) 143 mg/dL (70-99) 95 mg/dL (70-99) Laboratory Tests Test 06/08/18 18:45 06/08/18 20:15 06/09/18 03:30 06/09/18 07:24 White Blood Count 7.4 x10^3/uL (4.0-11.0) 6.5 x10^3/uL (4.0-11.0) Red Blood Count 4.71 x10^6/uL (3.50-5.40) 4.42 x10^6/uL (3.50-5.40) Hemoglobin 13.6 g/dL (12.0-15.5) 12.2 g/dL (12.0-15.5) Hematocrit 40.3 % (36.0-47.0) 38.3 % (36.0-47.0) Mean Corpuscular Volume 86 fL (79-100) 87 fL (79-100) Mean Corpuscular Hemoglobin 29 pg (25-35) 28 pg (25-35) Mean Corpuscular Hemoglobin Concent 34 g/dL (31-37) 32 g/dL (31-37) Red Cell Distribution Width 13.7 % (11.5-14.5) 14.3 % (11.5-14.5) Platelet Count 332 x10^3/uL (140-400) 309 x10^3/uL (140-400) Neutrophils (%) (Auto) 62 % (31-73) 56 % (31-73) Lymphocytes (%) (Auto) 25 % (24-48) 32 % (24-48) Monocytes (%) (Auto) 7 % (0-9) 6 % (0-9) Eosinophils (%) (Auto) 5 % (0-3) 6 % (0-3) Basophils (%) (Auto) 1 % (0-3) 1 % (0-3) Neutrophils # (Auto) 4.6 x10^3uL (1.8-7.7) 3.6 x10^3uL (1.8-7.7) Lymphocytes # (Auto) 1.9 x10^3/uL (1.0-4.8) 2.1 x10^3/uL (1.0-4.8) Monocytes # (Auto) 0.5 x10^3/uL (0.0-1.1) 0.4 x10^3/uL (0.0-1.1) Eosinophils # (Auto) 0.4 x10^3/uL (0.0-0.7) 0.4 x10^3/uL (0.0-0.7) Basophils # (Auto) 0.1 x10^3/uL (0.0-0.2) 0.0 x10^3/uL (0.0-0.2) Erythrocyte Sedimentation Rate 12 (0-25) Sodium Level 141 mmol/L (136-145) 141 mmol/L (136-145) Potassium Level 2.9 mmol/L (3.5-5.1) 3.5 mmol/L (3.5-5.1) Chloride Level 101 mmol/L (98-107) 103 mmol/L (98-107) Carbon Dioxide Level 33 mmol/L (21-32) 30 mmol/L (21-32) Anion Gap 7 (6-14) 8 (6-14) Blood Urea Nitrogen 20 mg/dL (7-20) 17 mg/dL (7-20) Creatinine 1.2 mg/dL (0.6-1.0) 1.1 mg/dL (0.6-1.0) Estimated GFR (Cockcroft-Gault) 44.7 49.4 Glucose Level 109 mg/dL (70-99) 106 mg/dL (70-99) Calcium Level 9.5 mg/dL (8.5-10.1) 9.0 mg/dL (8.5-10.1) C-Reactive Protein, Quantitative 11.5 mg/L (0-3.3) Glucose (Fingerstick) 143 mg/dL (70-99) 95 mg/dL (70-99) Assessment/Plan Assessment/Plan right knee pain and swelling and drainage admit, concern for infection, ID consulted chronic back pain and neuropathic pain obesity, hyperlipidemia, familiar, goes to lipid clinic hypokalemia, improved, CKD 2, s/p partial nephrectomy depression, insomnia mult drug allergies DEIRDRE AVILA MD Jun 09, 2018 09:24
[2018-06-09 11:00] VITALS: BP 110/50
[2018-06-09] MEDS ORDERED: ONDANSETRON ODT 4 MG TAB.RAPDIS. PO PRN (12:00)
--- NOTE | 2018-06-09 12:26 | NUR ---
SW following. Discussed with RN, pt is from home with . Pt having surgery today or tomorrow. RN advised pt is wanting SNU at [facility] if possible. MATTHEW left voicemail for admissions at [facility] (ph:[phone]) to determine bed availability, awaiting call back. Will await PT/OT notes for discharge planning. MATTHEW will continue to follow.
--- NOTE | 2018-06-09 13:41 | CONS ---
DATE OF CONSULTATION: 06/08/2018 REFERRING PHYSICIAN: Dr. De La Cruz. REASON FOR CONSULTATION: Antibiotic management. HISTORY OF PRESENT ILLNESS: A 67-year-old female with past medical history of hypertension, hyperlipidemia, obesity, GERD, lap band in 2009, wears a CPAP, renal cancer, status post left nephrectomy, depression, anxiety, arthritis, history of infected right total knee arthroplasty, status post explantation, debridement and insertion of antibiotic spacer in April 2017 with cultures positive for Granulicatella, treated with antibiotics with subsequent reimplantation without any difficulty and healed well. 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 The patient was discharged to rehab facility, but apparently developed some serous drainage from the distal portion of her wound last , 6 days ago. The patient was seen in Dr. De La Cruz's office today. Drainage was cultured. She reported a fever of 99 degrees today with minimal pain to the right knee and reported keeping it in her brace keeping to a minimal flexion. The patient continues to have copious amount of serosanguineous drainage. So, she was admitted to [facility] as a direct admit. CBC was done, which is noted C-reactive protein is around 11. ESR is pending at this time. ID consult has been requested for antibiotic management. The patient was ordered a dose of IV vancomycin. Per Orthopedics, she may need to undergo exploration and at the very least some prophylactic IV antibiotics. The patient denies any fevers, chills, nausea, vomiting, diarrhea, abdominal pain, symptoms, rash, sick contact, recent travel. She went home from the rehab facility yesterday. PAST MEDICAL HISTORY: Inflammatory bowel disease, hypertension, GERD, depression, anxiety, menopause, chronic back and neck pain, type 2 diabetes, history of renal cancer, status post left nephrectomy, status post lap band surgery, status post back surgery, cervical and lumbar surgery, spinal stimulator, hysterectomy, cholecystectomy, history of MRSA, cataract extraction, tonsillectomy. SOCIAL HISTORY: The patient lives at home. Former smoker. FAMILY HISTORY: Positive for depression, cardiovascular disease. ALLERGIES: CEPHALEXIN, which she says causes nausea; SULFA and possibly AUGMENTIN, but she is not sure other allergies noted. CURRENT MEDICATIONS: Vancomycin 1 time dose and then per pharmacy. REVIEW OF SYSTEMS: Negative except for above in HPI. PHYSICAL EXAMINATION: VITAL SIGNS: Stable. Temperature 98, pulse 78, respiratory rate 18, blood pressure 142/64, oxygen saturation 98% on room air. GENERAL: The patient is sitting in bed, in no acute distress, cooperative. HEENT: Normocephalic, atraumatic, anicteric. No thrush. Oral mucosa is moist. NECK: Supple. No JVD. No thyromegaly. No carotid bruits. LUNGS: Clear bilaterally. No wheezing. HEART: S1, S2. No gallops, murmurs, or rubs. ABDOMEN: Soft, nontender, nondistended. No rebound, no guarding. EXTREMITIES: Right knee immobilized in a brace. Incision site looks okay. No redness, no surrounding erythema. There is serous drainage from two open areas in the distal portion of the wound. No purulence. CENTRAL NERVOUS SYSTEM: Alert and oriented x 3. Grossly nonfocal. PSYCHIATRIC: Cooperative, appropriate mood and affect. DERMATOLOGIC: Warm, dry, no generalized rash. IMAGING: Knee x-ray, right pending at this time. IMPRESSION: 1. Right knee wound drainage, status post recent surgery on 05/17/2018 with extensive patellar reconstruction with allograft, Achilles tendon and calcaneus bone block for comminuted fracture of right patellar with non-reunion. 2. Antibiotic allergy/intolerance to CEPHALEXIN, SULFA, AUGMENTIN, unknown allergy. 3. Hypertension. 4. History of left nephrectomy for renal cancer. 5. Hypokalemia. 6. History of depression and anxiety. 7. History of methicillin-resistant Staphylococcus aureus. 8. History of right total knee arthroplasty, status post infection in April 2017, status post explantation, debridement and insertion of antibiotic spacer on 04/16 with intraoperative cultures positive for Granulicatella, treated status post reimplantation in February of 2018. RECOMMENDATIONS: 1. We will hold off on vancomycin with history of left nephrectomy, solitary kidney. 2. Start empiric daptomycin. 3. Start empiric meropenem. 4. Follow up cultures taken in Dr. De La Cruz's office this morning. 5. Monitor renal functions. 6. Continue supportive care. 7. Agree with Dr. De La Cruz that the patient may need to undergo exploration . 7. Monitor for renal function. 8. Monitor for antimicrobial toxicities. 9. Continue wound care per Orthopedics. Thank you, Dr. De La Cruz for consulting Infectious Disease to participate in this patient's care. If you have any questions, do not hesitate to contact me. DEEDEE GREEN MD DR: MARICRUZ/sherry JOB#: [id number] / [id number] LACHO
[2018-06-09 15:00] VITALS: BP 127/47
--- NOTE | 2018-06-09 16:35 | PDOC ---
PROGRESS NOTES Subjective Subjective Problems overnight:Knee still draining, ambulating with leg in extension Objective Vital Signs Vital Signs Date Time Temp Pulse Resp B/P (MAP) Pulse Ox O2 Delivery O2 Flow Rate FiO2 06/09/18 15:00 97.7 71 18 127/47 (73) 95 Room Air 97.7 Physical Exam Dressing with serous drainage. No redness Labs Laboratory Tests Test 06/08/18 18:45 06/08/18 20:15 06/09/18 03:30 06/09/18 07:24 White Blood Count 7.4 x10^3/uL (4.0-11.0) 6.5 x10^3/uL (4.0-11.0) Red Blood Count 4.71 x10^6/uL (3.50-5.40) 4.42 x10^6/uL (3.50-5.40) Hemoglobin 13.6 g/dL (12.0-15.5) 12.2 g/dL (12.0-15.5) Hematocrit 40.3 % (36.0-47.0) 38.3 % (36.0-47.0) Mean Corpuscular Volume 86 fL (79-100) 87 fL (79-100) Mean Corpuscular Hemoglobin 29 pg (25-35) 28 pg (25-35) Mean Corpuscular Hemoglobin Concent 34 g/dL (31-37) 32 g/dL (31-37) Red Cell Distribution Width 13.7 % (11.5-14.5) 14.3 % (11.5-14.5) Platelet Count 332 x10^3/uL (140-400) 309 x10^3/uL (140-400) Neutrophils (%) (Auto) 62 % (31-73) 56 % (31-73) Lymphocytes (%) (Auto) 25 % (24-48) 32 % (24-48) Monocytes (%) (Auto) 7 % (0-9) 6 % (0-9) Eosinophils (%) (Auto) 5 % (0-3) 6 % (0-3) Basophils (%) (Auto) 1 % (0-3) 1 % (0-3) Neutrophils # (Auto) 4.6 x10^3uL (1.8-7.7) 3.6 x10^3uL (1.8-7.7) Lymphocytes # (Auto) 1.9 x10^3/uL (1.0-4.8) 2.1 x10^3/uL (1.0-4.8) Monocytes # (Auto) 0.5 x10^3/uL (0.0-1.1) 0.4 x10^3/uL (0.0-1.1) Eosinophils # (Auto) 0.4 x10^3/uL (0.0-0.7) 0.4 x10^3/uL (0.0-0.7) Basophils # (Auto) 0.1 x10^3/uL (0.0-0.2) 0.0 x10^3/uL (0.0-0.2) Erythrocyte Sedimentation Rate 12 (0-25) Sodium Level 141 mmol/L (136-145) 141 mmol/L (136-145) Potassium Level 2.9 mmol/L (3.5-5.1) 3.5 mmol/L (3.5-5.1) Chloride Level 101 mmol/L (98-107) 103 mmol/L (98-107) Carbon Dioxide Level 33 mmol/L (21-32) 30 mmol/L (21-32) Anion Gap 7 (6-14) 8 (6-14) Blood Urea Nitrogen 20 mg/dL (7-20) 17 mg/dL (7-20) Creatinine 1.2 mg/dL (0.6-1.0) 1.1 mg/dL (0.6-1.0) Estimated GFR (Cockcroft-Gault) 44.7 49.4 Glucose Level 109 mg/dL (70-99) 106 mg/dL (70-99) Calcium Level 9.5 mg/dL (8.5-10.1) 9.0 mg/dL (8.5-10.1) C-Reactive Protein, Quantitative 11.5 mg/L (0-3.3) Glucose (Fingerstick) 143 mg/dL (70-99) 95 mg/dL (70-99) Laboratory Tests Test 06/08/18 18:45 06/08/18 20:15 06/09/18 03:30 06/09/18 07:24 White Blood Count 7.4 x10^3/uL (4.0-11.0) 6.5 x10^3/uL (4.0-11.0) Red Blood Count 4.71 x10^6/uL (3.50-5.40) 4.42 x10^6/uL (3.50-5.40) Hemoglobin 13.6 g/dL (12.0-15.5) 12.2 g/dL (12.0-15.5) Hematocrit 40.3 % (36.0-47.0) 38.3 % (36.0-47.0) Mean Corpuscular Volume 86 fL (79-100) 87 fL (79-100) Mean Corpuscular Hemoglobin 29 pg (25-35) 28 pg (25-35) Mean Corpuscular Hemoglobin Concent 34 g/dL (31-37) 32 g/dL (31-37) Red Cell Distribution Width 13.7 % (11.5-14.5) 14.3 % (11.5-14.5) Platelet Count 332 x10^3/uL (140-400) 309 x10^3/uL (140-400) Neutrophils (%) (Auto) 62 % (31-73) 56 % (31-73) Lymphocytes (%) (Auto) 25 % (24-48) 32 % (24-48) Monocytes (%) (Auto) 7 % (0-9) 6 % (0-9) Eosinophils (%) (Auto) 5 % (0-3) 6 % (0-3) Basophils (%) (Auto) 1 % (0-3) 1 % (0-3) Neutrophils # (Auto) 4.6 x10^3uL (1.8-7.7) 3.6 x10^3uL (1.8-7.7) Lymphocytes # (Auto) 1.9 x10^3/uL (1.0-4.8) 2.1 x10^3/uL (1.0-4.8) Monocytes # (Auto) 0.5 x10^3/uL (0.0-1.1) 0.4 x10^3/uL (0.0-1.1) Eosinophils # (Auto) 0.4 x10^3/uL (0.0-0.7) 0.4 x10^3/uL (0.0-0.7) Basophils # (Auto) 0.1 x10^3/uL (0.0-0.2) 0.0 x10^3/uL (0.0-0.2) Erythrocyte Sedimentation Rate 12 (0-25) Sodium Level 141 mmol/L (136-145) 141 mmol/L (136-145) Potassium Level 2.9 mmol/L (3.5-5.1) 3.5 mmol/L (3.5-5.1) Chloride Level 101 mmol/L (98-107) 103 mmol/L (98-107) Carbon Dioxide Level 33 mmol/L (21-32) 30 mmol/L (21-32) Anion Gap 7 (6-14) 8 (6-14) Blood Urea Nitrogen 20 mg/dL (7-20) 17 mg/dL (7-20) Creatinine 1.2 mg/dL (0.6-1.0) 1.1 mg/dL (0.6-1.0) Estimated GFR (Cockcroft-Gault) 44.7 49.4 Glucose Level 109 mg/dL (70-99) 106 mg/dL (70-99) Calcium Level 9.5 mg/dL (8.5-10.1) 9.0 mg/dL (8.5-10.1) C-Reactive Protein, Quantitative 11.5 mg/L (0-3.3) Glucose (Fingerstick) 143 mg/dL (70-99) 95 mg/dL (70-99) Assessment Assessment knee drainage s/p extensor mechanism reconstruction Plan Plan of Care Plan exploration in AM Await cx, cont Abx per id LESLIE PEREZ MD Jun 09, 2018 16:35
[2018-06-09 19:00] VITALS: BP 115/54
[2018-06-09] MEDS: FAMOTIDINE 20 MG TABLET. PO SCH (21:14)
[2018-06-09] MEDS: LACTOBACILLUS RHAMNOSUS GG 1 CAPSULE. PO SCH (21:14)
[2018-06-09] MEDS: DAPTOmycin (GENERIC) IVPB 600 MG in IV NORMAL SALINE 50ML 50 ML IV SCH (21:14)
[2018-06-09] MEDS: traZODone 100 MG TABLET. PO SCH (21:15)
[2018-06-09 23:00] VITALS: BP 127/55
[2018-06-10] VITALS (12 sets, daily range): BP systolic 117–164; BP diastolic 47–76
[2018-06-10] MEDS: MEROPENEM 500 MG in IV NORMAL SALINE 50ML 50 ML IV SCH ×4 (00:04→17:59)
[2018-06-10] MEDS ORDERED: IV RINGERS,LACTATED 1000ML 1,000 ML IV SCH (07:00)
[2018-06-10] MEDS ORDERED: PROCHLORPERAZINE 10 MG/2 ML VIAL. IV PRN (07:00)
[2018-06-10] MEDS ORDERED: SEVOFLURANE 61 TO 120 MINUTES. IH ONE (07:56)
[2018-06-10] MEDS ORDERED: PROPOFOL 20 ML IV ONE (07:57)
[2018-06-10] MEDS ORDERED: LIDOCAINE 2% PF 5 ML VIAL. ONE (07:57)
[2018-06-10] MEDS ORDERED: FAMOTIDINE 20 MG/2 ML VIAL ONE (07:59)
[2018-06-10] MEDS ORDERED: ONDANSETRON PF 4 MG/2 ML VIAL. ONE (08:26)
[2018-06-10] MEDS ORDERED: DEXAMETHASONE SOD PHOS 20 MG/5 ML VIAL. ONE (08:26)
[2018-06-10] MEDS ORDERED: KETOROLAC 30 MG/ML INJ FOR OR. INJ ONE (08:26)
[2018-06-10] MEDS ORDERED: MORPHINE SULFATE 10 MG/ML VIAL. ONE (08:44)
--- NOTE | 2018-06-10 09:16 | NUR ---
SW following. Discussed with RN, pt having surgery today. SW awaiting PT/OT notes in order to fax referral to [facility], if pt is requiring SNU. SW will continue to follow.
[2018-06-10] MEDS ORDERED: MORPHINE SULFATE 2 MG/ML VIAL. ONE (10:05)
--- NOTE | 2018-06-10 10:10 | PDOC ---
Infectious Disease Note Subjective: Subjective pt is back from I and D of RT Knee earlier today postop pain is under control No f/c/n/v/d some cough ,dry ROS: ROS Negative except for above. Vital Signs: Vital Signs Vital Signs Date Time Temp Pulse Resp B/P (MAP) Pulse Ox O2 Delivery O2 Flow Rate FiO2 06/10/18 09:53 98.1 74 15 149/62 95 Room Air 98.1 06/10/18 09:22 10 Physical Exam: PHYSICAL EXAM Gen. alert oriented 3 female sitting upright in bed in no acute distress HEENT: Atraumatic, normocephalic. no icterus or thrush Neck supple no JVD HEART: Regular rate and rhythm. LUNGS: Clear to auscultation bilaterally. 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 Skin no generalized rash Medications: Inpatient Meds: Current Medications Medications (Trade) Dose Ordered Sig/Hina Start Time Stop Time Status Last Admin Dose Admin Calcium Carbonate/ Glycine (Tums) 500 mg PRN QID PRN 06/08/18 17:45 Carvedilol (Coreg) 6.25 mg BIDWMEALS 06/09/18 08:00 06/09/18 17:40 6.25 MG Citalopram Hydrobromide (CeleXA) 80 mg DAILY 06/09/18 09:00 06/09/18 08:00 80 MG Daptomycin 600 mg/ Sodium Chloride 50 ml @ 100 mls/hr Q24H 06/08/18 20:30 06/09/18 21:14 100 MLS/HR Dexamethasone Sodium Phosphate (Decadron) 20 mg STK-MED ONCE 06/10/18 08:26 06/10/18 08:27 DC Dextrose (Dextrose 50%-Water Syringe) 12.5 gm PRN Q15MIN PRN 06/08/18 17:45 06/09/18 09:25 DC Duloxetine HCl (Cymbalta) 60 mg BID 06/08/18 22:45 06/09/18 21:15 60 MG Ergocalciferol (Vitamin D2) 50,000 unit QSU 06/12/18 16:00 EZETIMIBE (Zetia) 10 mg DAILY 06/09/18 09:00 06/09/18 07:59 10 MG Famotidine (Pepcid Vial) 20 mg STK-MED ONCE 06/10/18 07:59 06/10/18 08:00 DC Famotidine (Pepcid) 40 mg HS 06/08/18 22:45 06/09/18 21:14 40 MG Hydromorphone HCl (Dilaudid) 4 mg PRN Q4HRS PRN 06/08/18 22:45 06/09/18 09:25 DC Insulin Human Lispro (HumaLOG) 0-5 UNITS TIDWMEALS 06/09/18 08:00 06/09/18 09:25 DC Ketorolac Tromethamine (Toradol For Or Only) 30 mg STK-MED ONCE 06/10/18 08:26 06/10/18 08:27 DC Lactobacillus Rhamnosus (Culturelle) 1 cap BID 06/09/18 21:00 06/09/18 21:14 1 CAP Lidocaine HCl (Lidocaine Pf 2% Vial) 5 ml STK-MED ONCE 06/10/18 07:57 06/10/18 07:58 DC Magnesium Hydroxide (Milk Of Magnesia) 2,400 mg 1X PRN PRN 06/09/18 06:00 06/10/18 06:00 DC Meropenem 500 mg/ Sodium Chloride 50 ml @ 100 mls/hr Q6HRS 06/08/18 20:00 06/10/18 05:32 100 MLS/HR Morphine Sulfate (Morphine Sulfate) 2 mg 1X ONCE 06/10/18 10:15 06/10/18 10:16 UNV Ondansetron HCl (Zofran Odt) 4 mg PRN Q6HRS PRN 06/09/18 12:00 Ondansetron HCl (Zofran) 4 mg STK-MED ONCE 06/10/18 08:26 06/10/18 08:27 DC Potassium Chloride (Klor-Con) 10 meq DAILYWBKFT 06/09/18 08:00 06/09/18 07:59 10 MEQ Prochlorperazine Edisylate (Compazine) 5 mg PACU PRN PRN 06/10/18 07:00 06/11/18 06:59 Propofol 20 ml @ As Directed STK-MED ONCE 06/10/18 07:57 06/10/18 07:58 DC Ringer's Solution 1,000 ml @ 30 mls/hr Q24H 06/10/18 07:00 06/10/18 18:59 Sevoflurane (Ultane) 60 ml STK-MED ONCE 06/10/18 07:56 06/10/18 07:57 DC Sodium Chloride (Normal Saline Flush) 10 ml QSHIFT PRN 06/08/18 17:45 Trazodone HCl (Desyrel) 100 mg QHS 06/08/18 22:45 06/09/18 21:15 100 MG Vancomycin HCl (Vanco Per Pharmacy) 1 each PRN DAILY PRN 06/08/18 17:45 06/08/18 19:10 DC Vancomycin HCl 2 gm/Sodium Chloride 500 ml @ 250 mls/hr 1X ONCE 06/08/18 18:00 06/08/18 19:10 DC Labs: Micro RUN DATE: 06/10/18 PAGE 1 RUN TIME: 313 [facility] [address] [place] [address] Rigo Hurtado M.D., Cytopathologist PATIENT: GREYSON VELEZ ACCT: [id number] LOC: SPEC U : [id number] AGE/SX: 67/F ROOM: REG : 06/08/[address]: BLANCA BE MD : 1950 BED: DIS : STATUS: REG CLI TLOC: SPEC #: [id number] BUFFY: 06/08/18 STATUS: RES REQ #: [id number] RECD: 06/08/[address] [facility] [address]: BLANCA BE MD SOURCE: KNEE ENTR: 06/08/[address] [facility] [address]: SPDES: RIGHT ORDERED: ANAER/AEROB/GS Procedure Result ANAEROBIC-AEROBIC CULTURE PENDING ANAEROBIC RES 1 PENDING AEROBIC CULT PENDING AEROBIC RES 1 PENDING GRAM STAIN Final Final report GRAM STAIN RES 1 Final Comment No white blood cells seen. GRAM STAIN RES 2 Final No organisms seen Performed at: DA - [facility], [place], [place] [id number] Business Analyst Project Manager: RAMY Desai MD, Phone: [phone] CULT 3/5 NGTD CULT 04/2018 NEG Objective: Assessment: RT postsurgical knee site pain ,swelling and drainage concern for infection cult neg so far S/P I and D today lt nephrectomy, CKD Multiple drug allergies RT PJI Knee infection 04/2017 treated with explant of HW, reimplant,healed well last summer Rt Achilles tendon repair in 2015 with infection Obesity Chronic back pain Depression, Anxiety Plan: Plan of Care Cont Dapto, merrem f/u c/s f/u labs cont supportive care D/W DEEDEE WOODALL MD Jun 10, 2018 10:10
[2018-06-10] MEDS ORDERED: MORPHINE SULFATE 2 MG/ML VIAL. IV ONE (10:15)
--- NOTE | 2018-06-10 10:40 | NUR ---
Pt arrives to unit via bed. Pt A&O x4/drowsy. Pt c/o pain 06/22 at this time. Pt has wound vac with 125 suction. Pt laying in bed at this time with call light in reach, eyes closed. VS stable.
[2018-06-10] MEDS: CITALOPRAM 20 MG TABLET. PO SCH (10:49)
[2018-06-10] MEDS: POTASSIUM CHLORIDE 10 MEQ TABLET.ER. PO SCH (10:49)
[2018-06-10] MEDS: DULoxetine HCL 30 MG CAPSULE.DR PO SCH ×2 (10:50→20:47)
[2018-06-10] MEDS: EZETIMIBE 10 MG TABLET. PO SCH (10:50)
[2018-06-10] MEDS: CARVEDILOL 6.25 MG TABLET. PO SCH ×2 (10:50→17:35)
[2018-06-10] MEDS: LACTOBACILLUS RHAMNOSUS GG 1 CAPSULE. PO SCH ×2 (10:50→20:47)
[2018-06-10] MEDS: HYDROmorphone 4 MG TABLET PO PRN (10:51)
[2018-06-10] MEDS: ONDANSETRON PF 4 MG/2 ML VIAL. IV PRN ×2 (11:13→17:30)
[2018-06-10] MEDS: HYDROmorphone 2 MG/ML VIAL IVP PRN (12:11)
--- NOTE | 2018-06-10 14:58 | PDOC4 ---
Operative Note Operative Note Date of surgery: 06/10/2018 Preoperative diagnosis: Right knee drainage status post extensor mechanism reconstruction Postoperative diagnosis: Intact extensor mechanism reconstruction and no evidence gross infection Operative procedure: Exploration and debridement of right knee with application wound VAC Surgeon: Jono Anesthesia: Gen. Estimated blood loss: 50 mL Complications: None Operative indications: Patient is a 67-year-old female that had undergone extensor mechanism reconstruction with a implanted total knee for a patella fracture that was unsalvageable. Rather than undergo a pediclectomy with significant decrease in function extensor mechanism was extensively reconstructed and post hospital stay she went to a rehabilitation facility and reportedly last began developing drainage that was not reported to our office. Patient called about 5-6 days later in reported drainage on her discharge and was immediately brought into the office admitted to the hospital cultures were obtained and intravenous antibiotics were then started. I told her I was very concerned about the drainage being a path to infection of her implant and reconstruction and planned the exploration and debridement procedure. All her questions were answered she wishes to proceed with surgical evaluation and treatment. Operative text: Patient was identified procedure verified. After adequate amounts of general anesthesia were administered she was placed in supine position on the operating table and right lower extremity was prepped and draped in standard sterile fashion with a thigh tourniquet. Tourniquet was inflated to 250 mmHg a midline incision was made and dissection carried out down to the extensor mechanism there was significant amounts of serous subcutaneous fluid present without evidence of infection. Due to the extensive reconstruction there was potential communication with the joint I therefore opened that up area and again no gross contamination was noted debridement was carried out on the skin and subcutaneous area and thorough irrigation carried out both in the joint and out with back to assure 1 L significant additional irrigation with another 5 L of normal saline solution under pulse lavage was carried out any retained absorbable suture was removed and debridement back to completely healthy tissue was noted closure was accomplished in a layered fashion with #1 and 2-0 PDS. Skin closure was not accomplished instead a wound VAC with boundary layer was placed and achieved excellent suction the patient was returned to recovery room in stable condition having tolerated procedure well LESLIE PEREZ MD Jun 10, 2018 14:58
--- NOTE | 2018-06-10 16:37 | PDOC ---
PROGRESS NOTES Chief Complaint Chief Complaint right knee pain and swelling and drainage admit, concern for infection, ID consulted chronic back pain and neuropathic pain obesity, BMI 37 hyperlipidemia, familiar, goes to lipid clinic hypokalemia, improved, CKD 2, s/p partial nephrectomy depression, insomnia History of Present Illness History of Present Illness pain is more severe today, additional meds Vitals Vitals Vital Signs Date Time Temp Pulse Resp B/P (MAP) Pulse Ox O2 Delivery O2 Flow Rate FiO2 06/10/18 15:00 98.3 71 18 137/61 (86) 90 Room Air 98.3 06/10/18 13:40 2.0 Physical Exam Physical Exam Gen. alert oriented 3 female sitting upright in bed in no acute distress HEENT: Atraumatic, normocephalic. no icterus or thrush Neck supple no JVD HEART: Regular rate and rhythm. LUNGS: Clear to auscultation bilaterally. 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 Labs Laboratory Tests Test 06/08/18 18:45 06/08/18 20:15 06/09/18 03:30 06/09/18 07:24 White Blood Count 7.4 x10^3/uL (4.0-11.0) 6.5 x10^3/uL (4.0-11.0) Red Blood Count 4.71 x10^6/uL (3.50-5.40) 4.42 x10^6/uL (3.50-5.40) Hemoglobin 13.6 g/dL (12.0-15.5) 12.2 g/dL (12.0-15.5) Hematocrit 40.3 % (36.0-47.0) 38.3 % (36.0-47.0) Mean Corpuscular Volume 86 fL (79-100) 87 fL (79-100) Mean Corpuscular Hemoglobin 29 pg (25-35) 28 pg (25-35) Mean Corpuscular Hemoglobin Concent 34 g/dL (31-37) 32 g/dL (31-37) Red Cell Distribution Width 13.7 % (11.5-14.5) 14.3 % (11.5-14.5) Platelet Count 332 x10^3/uL (140-400) 309 x10^3/uL (140-400) Neutrophils (%) (Auto) 62 % (31-73) 56 % (31-73) Lymphocytes (%) (Auto) 25 % (24-48) 32 % (24-48) Monocytes (%) (Auto) 7 % (0-9) 6 % (0-9) Eosinophils (%) (Auto) 5 % (0-3) 6 % (0-3) Basophils (%) (Auto) 1 % (0-3) 1 % (0-3) Neutrophils # (Auto) 4.6 x10^3uL (1.8-7.7) 3.6 x10^3uL (1.8-7.7) Lymphocytes # (Auto) 1.9 x10^3/uL (1.0-4.8) 2.1 x10^3/uL (1.0-4.8) Monocytes # (Auto) 0.5 x10^3/uL (0.0-1.1) 0.4 x10^3/uL (0.0-1.1) Eosinophils # (Auto) 0.4 x10^3/uL (0.0-0.7) 0.4 x10^3/uL (0.0-0.7) Basophils # (Auto) 0.1 x10^3/uL (0.0-0.2) 0.0 x10^3/uL (0.0-0.2) Erythrocyte Sedimentation Rate 12 (0-25) Sodium Level 141 mmol/L (136-145) 141 mmol/L (136-145) Potassium Level 2.9 mmol/L (3.5-5.1) 3.5 mmol/L (3.5-5.1) Chloride Level 101 mmol/L (98-107) 103 mmol/L (98-107) Carbon Dioxide Level 33 mmol/L (21-32) 30 mmol/L (21-32) Anion Gap 7 (6-14) 8 (6-14) Blood Urea Nitrogen 20 mg/dL (7-20) 17 mg/dL (7-20) Creatinine 1.2 mg/dL (0.6-1.0) 1.1 mg/dL (0.6-1.0) Estimated GFR (Cockcroft-Gault) 44.7 49.4 Glucose Level 109 mg/dL (70-99) 106 mg/dL (70-99) Calcium Level 9.5 mg/dL (8.5-10.1) 9.0 mg/dL (8.5-10.1) C-Reactive Protein, Quantitative 11.5 mg/L (0-3.3) Glucose (Fingerstick) 143 mg/dL (70-99) 95 mg/dL (70-99) Medications Current Medications Magnesium Hydroxide (Milk Of Magnesia) 2,400 mg 1X PRN PRN PO CONSTIPATION; Start 06/09/18 at 06:00; Stop 06/10/18 at 06:00; Status DC Calcium Carbonate/ Glycine (Tums) 500 mg PRN QID PRN PO INDIGESTION; Start at 17:45 Sodium Chloride (Normal Saline Flush) 10 ml QSHIFT PRN IV AFTER MEDS AND BLOOD DRAWS; Start 06/08/18 at 17:45 Ondansetron HCl (Zofran) 4 mg Q6HRS IV Last administered on 06/09/18at 06:29; Start 06/08/18 at 18:00; Stop 06/09/18 at 12:01; Status DC Ondansetron HCl (Zofran Odt) 4 mg Q6HRS PO ; Start 06/08/18 at 18:00; Stop 06/09 at 12:01; Status DC Ondansetron HCl (Zofran) 4 mg PRN Q6HRS PRN IV Nausea/vomiting, 1st choice Last administered on 06/10/18at 11:13; Start 06/09/18 at 12:00 Ondansetron HCl (Zofran Odt) 4 mg PRN Q6HRS PRN PO Nausea/vomiting, 1st choice ; Start 06/09/18 at 12:00 Insulin Human Lispro (HumaLOG) 0-5 UNITS TIDWMEALS SQ ; Start 06/09/18 at 08:00 ; Stop 06/09/18 at 09:25; Status DC Dextrose (Dextrose 50%-Water Syringe) 12.5 gm PRN Q15MIN PRN IV SEE COMMENTS; Start 06/08/18 at 17:45; Stop 06/09/18 at 09:25; Status DC Hydromorphone HCl (Dilaudid) 4 mg PRN Q4HRS PRN PO PAIN Last administered on at 10:51; Start 06/08/18 at 17:45 Vancomycin HCl (Vanco Per Pharmacy) 1 each PRN DAILY PRN MC SEE COMMENTS; Start 06/08/18 at 17:45; Stop 06/08/18 at 19:10; Status DC Vancomycin HCl 2 gm/Sodium Chloride 500 ml @ 250 mls/hr 1X ONCE IV ; Start at 18:00; Stop 06/08/18 at 19:10; Status DC Potassium Chloride (Klor-Con) 40 meq 1X ONCE PO Last administered on at 20:36; Start 06/08/18 at 19:30; Stop 06/08/18 at 19:35; Status DC Daptomycin 600 mg/ Sodium Chloride 50 ml @ 100 mls/hr Q24H IV Last administered on 06/09/18at 21:14; Start 06/08/18 at 20:30 Meropenem 500 mg/ Sodium Chloride 50 ml @ 100 mls/hr Q6HRS IV Last administered on 06/10/18at 12:10; Start 06/08/18 at 20:00 Carvedilol (Coreg) 6.25 mg BIDWMEALS PO Last administered on 06/10/18at 10:50; Start 06/09/18 at 08:00 Ergocalciferol (Vitamin D2) 50,000 unit QSU PO ; Start 06/12/18 at 16:00 EZETIMIBE (Zetia) 10 mg DAILY PO Last administered on 06/10/18at 10:50; Start at 09:00 Potassium Chloride (Klor-Con) 10 meq DAILYWBKFT PO Last administered on at 10:49; Start 06/09/18 at 08:00 Trazodone HCl (Desyrel) 100 mg QHS PO Last administered on 06/09/18at 21:15; Start 06/08/18 at 22:45 Duloxetine HCl (Cymbalta) 60 mg BID PO Last administered on 06/10/18at 10:50; Start 06/08/18 at 22:45 Citalopram Hydrobromide (CeleXA) 80 mg DAILY PO Last administered on 06/10/18at 10:49; Start 06/09/18 at 09:00 Hydromorphone HCl (Dilaudid) 4 mg PRN Q4HRS PRN PO PAIN; Start 06/08/18 at 22: 45; Stop 06/09/18 at 09:25; Status DC Famotidine (Pepcid) 40 mg HS PO Last administered on 06/09/18at 21:14; Start at 22:45 Lactobacillus Rhamnosus (Culturelle) 1 cap BID PO Last administered on at 10:50; Start 06/09/18 at 21:00 Ringer's Solution 1,000 ml @ 30 mls/hr Q24H IV ; Start 06/10/18 at 07:00; Stop 06/10/18 at 18:59 Prochlorperazine Edisylate (Compazine) 5 mg PACU PRN PRN IV NAUSEA, MRX1; Start 06/10/18 at 07:00; Stop 06/11/18 at 06:59 Sevoflurane (Ultane) 60 ml STK-MED ONCE IH ; Start 06/10/18 at 07:56; Stop 06/10 at 07:57; Status DC Propofol 20 ml @ As Directed STK-MED ONCE IV ; Start 06/10/18 at 07:57; Stop at 07:58; Status DC Lidocaine HCl (Lidocaine Pf 2% Vial) 5 ml STK-MED ONCE .ROUTE ; Start 06/10/18 at 07:57; Stop 06/10/18 at 07:58; Status DC Famotidine (Pepcid Vial) 20 mg STK-MED ONCE .ROUTE ; Start 06/10/18 at 07:59; Stop 06/10/18 at 08:00; Status DC Ketorolac Tromethamine (Toradol For Or Only) 30 mg STK-MED ONCE INJ ; Start at 08:26; Stop 06/10/18 at 08:27; Status DC Dexamethasone Sodium Phosphate (Decadron) 20 mg STK-MED ONCE .ROUTE ; Start at 08:26; Stop 06/10/18 at 08:27; Status DC Ondansetron HCl (Zofran) 4 mg STK-MED ONCE .ROUTE ; Start 06/10/18 at 08:26; Stop 06/10/18 at 08:27; Status DC Morphine Sulfate (Morphine Sulfate) 10 mg STK-MED ONCE .ROUTE ; Start 06/10/18 at 08:44; Stop 06/10/18 at 08:45; Status DC Morphine Sulfate (Morphine Sulfate) 2 mg STK-MED ONCE .ROUTE ; Start 06/10/18 at 10:05; Stop 06/10/18 at 10:06; Status DC Morphine Sulfate (Morphine Sulfate) 2 mg 1X ONCE IV Last administered on at 10:10; Start 06/10/18 at 10:15; Stop 06/10/18 at 10:16; Status DC Hydromorphone HCl (Dilaudid) 1 mg PRN Q4HRS PRN IVP PAIN Last administered on at 12:11; Start 06/10/18 at 12:00 Active Scripts Active Reported Hydromorphone Hcl 4 Mg Tablet 4 Mg PO Q4HRS PRN Eliquis (Apixaban) 2.5 Mg Tablet 2.5 Mg PO BID Coreg (Carvedilol) 6.25 Mg Tablet 1 Tab PO BID Potassium Chloride 10 Meq Capsule.er 10 Meq PO UD Zetia (Ezetimibe) 10 Mg Tablet 1 Tab PO DAILY AM Vitamin D2 (Ergocalciferol (Vitamin D2)) 50,000 Unit Capsule 50,000 Unit PO QSU Lexapro (Escitalopram Oxalate) 20 Mg Tablet 40 Mg PO DAILY Trazodone Hcl 100 Mg Tablet 1 Tab PO QHS Ranitidine Hcl 300 Mg Capsule 1 Cap PO HS Cymbalta (Duloxetine Hcl) 60 Mg Capsule.dr 60 Mg PO BID Vitals/I & O Vital Sign - Last 24 Hours 06/09/18 06/09/18 06/09/18 06/09/18 17:40 19:00 20:00 23:00 Temp 98.6 97.7 98.6 97.7 Pulse 71 66 68 Resp 18 18 B/P (MAP) 127/47 115/54 (74) 127/55 (79) Pulse Ox 95 93 O2 Delivery Room Air Room Air Room Air 06/10/18 06/10/18 06/10/18 06/10/18 03:00 07:15 09:22 09:22 Temp 97.9 97.3 98.1 97.9 97.3 98.1 Pulse 62 62 65 Resp 18 15 B/P (MAP) 124/54 (77) 119/97 162/82 Pulse Ox 96 96 100 O2 Delivery Room Air Room Air Room Air Simple Mask O2 Flow Rate 10 06/10/18 06/10/18 06/10/18 06/10/18 09:37 09:53 10:08 10:10 Temp 98.1 98.1 98.1 98.1 98.1 98.1 Pulse 62 74 64 Resp 15 15 15 15 B/P (MAP) 124/51 149/62 130/59 Pulse Ox 100 95 99 95 O2 Delivery Room Air Room Air Nasal Cannula Room Air O2 Flow Rate 2 3.0 06/10/18 06/10/18 06/10/18 06/10/18 10:40 10:45 10:50 11:00 Temp 97.7 97.7 Pulse 68 65 70 B/P (MAP) 135/48 (77) 126/57 126/52 (76) Pulse Ox 99 96 O2 Delivery Room Air Nasal Cannula Nasal Cannula O2 Flow Rate 2.0 2.0 06/10/18 06/10/18 06/10/18 06/10/18 11:00 11:15 11:30 11:45 Temp 97.7 97.7 Pulse 68 71 71 67 Resp 18 B/P (MAP) 135/48 (77) 164/73 (103) 164/72 (102) 138/63 (88) Pulse Ox 99 98 98 97 O2 Delivery Room Air Nasal Cannula Nasal Cannula Nasal Cannula O2 Flow Rate 2.0 2.0 2.0 06/10/18 06/10/18 06/10/18 06/10/18 12:11 12:15 12:45 13:40 Pulse 70 69 80 Resp 16 B/P (MAP) 149/74 (99) 140/70 (93) 128/71 (90) Pulse Ox 96 96 90 O2 Delivery Room Air Nasal Cannula Nasal Cannula Nasal Cannula O2 Flow Rate 2.0 2.0 2.0 06/10/18 15:00 Temp 98.3 98.3 Pulse 71 Resp 18 B/P (MAP) 137/61 (86) Pulse Ox 90 O2 Delivery Room Air Intake and Output 06/09/18 06/09/18 06/10/18 15:00 23:00 07:00 Intake Total 425 ml 375 ml Balance 425 ml 375 ml DEIRDRE AVILA MD Jun 10, 2018 16:37
--- NOTE | 2018-06-10 16:52 | NUR ---
Wound Care Pt's wound vac application submitted through [facility], will f/u Wednesday for approval status.
[2018-06-10] MEDS: traZODone 100 MG TABLET. PO SCH (20:47)
[2018-06-10] MEDS: FAMOTIDINE 20 MG TABLET. PO SCH (20:47)
[2018-06-10] MEDS: DAPTOmycin (GENERIC) IVPB 600 MG in IV NORMAL SALINE 50ML 50 ML IV SCH (20:48)
--- NOTE | 2018-06-10 21:30 | PDOC ---
PROGRESS NOTES Subjective Subjective Problems overnight:Pain controlled postop Objective Vital Signs Vital Signs Date Time Temp Pulse Resp B/P (MAP) Pulse Ox O2 Delivery O2 Flow Rate FiO2 06/10/18 19:35 98.6 52 18 133/76 (95) 95 Room Air 98.6 06/10/18 13:40 2.0 Physical Exam Wound VAC intact distal neurovascular status intact Labs Laboratory Tests Test 06/09/18 03:30 06/09/18 07:24 White Blood Count 6.5 x10^3/uL (4.0-11.0) Red Blood Count 4.42 x10^6/uL (3.50-5.40) Hemoglobin 12.2 g/dL (12.0-15.5) Hematocrit 38.3 % (36.0-47.0) Mean Corpuscular Volume 87 fL (79-100) Mean Corpuscular Hemoglobin 28 pg (25-35) Mean Corpuscular Hemoglobin Concent 32 g/dL (31-37) Red Cell Distribution Width 14.3 % (11.5-14.5) Platelet Count 309 x10^3/uL (140-400) Neutrophils (%) (Auto) 56 % (31-73) Lymphocytes (%) (Auto) 32 % (24-48) Monocytes (%) (Auto) 6 % (0-9) Eosinophils (%) (Auto) 6 % (0-3) Basophils (%) (Auto) 1 % (0-3) Neutrophils # (Auto) 3.6 x10^3uL (1.8-7.7) Lymphocytes # (Auto) 2.1 x10^3/uL (1.0-4.8) Monocytes # (Auto) 0.4 x10^3/uL (0.0-1.1) Eosinophils # (Auto) 0.4 x10^3/uL (0.0-0.7) Basophils # (Auto) 0.0 x10^3/uL (0.0-0.2) Sodium Level 141 mmol/L (136-145) Potassium Level 3.5 mmol/L (3.5-5.1) Chloride Level 103 mmol/L (98-107) Carbon Dioxide Level 30 mmol/L (21-32) Anion Gap 8 (6-14) Blood Urea Nitrogen 17 mg/dL (7-20) Creatinine 1.1 mg/dL (0.6-1.0) Estimated GFR (Cockcroft-Gault) 49.4 Glucose Level 106 mg/dL (70-99) Calcium Level 9.0 mg/dL (8.5-10.1) Glucose (Fingerstick) 95 mg/dL (70-99) Assessment Assessment POD# [0], S/P [explore rotation debridement wound VAC right knee] Plan Plan of Care Underwent exploration debridement and wound VAC for drainage right knee status post extensive extensor reconstruction procedure Cultures pending, currently on IV antibiotics per infectious disease May weight-bear but only with knee fully in extension with knee brace, no bending knee Intention is to continue wound VAC until healed, advised wound care team of boundary layer present currently, change needed based on drainage only at this time, home wound VAC paperwork being pursued and a large unit may be necessary based on her amount of drainage LESLIE PEREZ MD Jun 10, 2018 21:30
[2018-06-11] MEDS: MEROPENEM 500 MG in IV NORMAL SALINE 50ML 50 ML IV SCH ×5 (00:17→23:38)
[2018-06-11 03:59] VITALS: BP 131/59
[2018-06-11 07:00] VITALS: BP 121/52
[2018-06-11] MEDS: CITALOPRAM 20 MG TABLET. PO SCH (08:53)
[2018-06-11] MEDS: DULoxetine HCL 30 MG CAPSULE.DR PO SCH ×2 (08:53→20:39)
[2018-06-11] MEDS: EZETIMIBE 10 MG TABLET. PO SCH (08:53)
[2018-06-11] MEDS: LACTOBACILLUS RHAMNOSUS GG 1 CAPSULE. PO SCH ×2 (08:53→20:40)
[2018-06-11] MEDS: POTASSIUM CHLORIDE 10 MEQ TABLET.ER. PO SCH (08:54)
[2018-06-11] MEDS: CARVEDILOL 6.25 MG TABLET. PO SCH ×3 (08:54→20:06)
--- NOTE | 2018-06-11 09:08 | PDOC ---
ORTHO PROGRESS NOTES Subjective She feels like her knee pain is tolerable, it is really not bothersome. She has not had much of an appetite but denies any abdominal complaints. Vitals Vital Signs Date Time Temp Pulse Resp B/P (MAP) Pulse Ox O2 Delivery O2 Flow Rate FiO2 06/11/18 08:54 68 121/52 06/11/18 07:00 97.8 18 99 Room Air 97.8 06/10/18 13:40 2.0 Notes She is awake and alert in bed. Examination right lower extremity reveals a hinge knee brace is in place. Wound VAC is in place with a good seal. Normal motor and sensation are present in her operative extremity Assessment and Plan Today, I discussed with her that the soft tissue healing needs to take priority in this scenario. We will continue the wound VAC and knee brace. We did also talk about a couple weeks placement after discharge from hospital. She has been to [facility] in the past and would be amenable to going there again. HAYLEY NAVARRO II, MD Jun 11, 2018 09:08
[2018-06-11] MEDS ORDERED: TRIA1TAB5 PO (09:26)
--- NOTE | 2018-06-11 09:30 | NUR ---
This nurse assisted in calling patient's preferred Pharmacy to verify home medication dose, informed patient's nurse of this medication update and need for restart, this nurse will continue to assist as needed for this patient.
[2018-06-11 10:57] VITALS: BP 115/46
[2018-06-11] MEDS: TRIAMTERENE/HCTZ 37.5/25MG TABLET. PO SCH (11:19)
--- NOTE | 2018-06-11 13:05 | PDOC ---
PROGRESS NOTES Chief Complaint Chief Complaint right knee pain and swelling and drainage admit, concern for infection, ID consulted chronic back pain and neuropathic pain obesity, BMI 37 hyperlipidemia, familiar, goes to lipid clinic hypokalemia, improved, CKD 2, s/p partial nephrectomy depression, insomnia History of Present Illness History of Present Illness she complains of concentrated urine and less volume wants her maxide restarted, will do cont current PT and OT plan snu with wound vac Vitals Vitals Vital Signs Date Time Temp Pulse Resp B/P (MAP) Pulse Ox O2 Delivery O2 Flow Rate FiO2 06/11/18 10:57 98.5 69 18 115/46 (69) 97 Room Air 98.5 06/10/18 13:40 2.0 Physical Exam Physical Exam Gen. alert oriented 3 female sitting upright in bed in no acute distress HEENT: Atraumatic, normocephalic. no icterus or thrush Neck supple no JVD HEART: Regular rate and rhythm. LUNGS: Clear to auscultation bilaterally. 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 Medications Current Medications Magnesium Hydroxide (Milk Of Magnesia) 2,400 mg 1X PRN PRN PO CONSTIPATION; Start 06/09/18 at 06:00; Stop 06/10/18 at 06:00; Status DC Calcium Carbonate/ Glycine (Tums) 500 mg PRN QID PRN PO INDIGESTION; Start at 17:45 Sodium Chloride (Normal Saline Flush) 10 ml QSHIFT PRN IV AFTER MEDS AND BLOOD DRAWS; Start 06/08/18 at 17:45 Ondansetron HCl (Zofran) 4 mg Q6HRS IV Last administered on 06/09/18at 06:29; Start 06/08/18 at 18:00; Stop 06/09/18 at 12:01; Status DC Ondansetron HCl (Zofran Odt) 4 mg Q6HRS PO ; Start 06/08/18 at 18:00; Stop 06/09 at 12:01; Status DC Ondansetron HCl (Zofran) 4 mg PRN Q6HRS PRN IV Nausea/vomiting, 1st choice Last administered on 06/10/18at 17:30; Start 06/09/18 at 12:00 Ondansetron HCl (Zofran Odt) 4 mg PRN Q6HRS PRN PO Nausea/vomiting, 1st choice Last administered on 06/11/18at 09:15; Start 06/09/18 at 12:00 Insulin Human Lispro (HumaLOG) 0-5 UNITS TIDWMEALS SQ ; Start 06/09/18 at 08:00 ; Stop 06/09/18 at 09:25; Status DC Dextrose (Dextrose 50%-Water Syringe) 12.5 gm PRN Q15MIN PRN IV SEE COMMENTS; Start 06/08/18 at 17:45; Stop 06/09/18 at 09:25; Status DC Hydromorphone HCl (Dilaudid) 4 mg PRN Q4HRS PRN PO PAIN Last administered on at 10:51; Start 06/08/18 at 17:45 Vancomycin HCl (Vanco Per Pharmacy) 1 each PRN DAILY PRN MC SEE COMMENTS; Start 06/08/18 at 17:45; Stop 06/08/18 at 19:10; Status DC Vancomycin HCl 2 gm/Sodium Chloride 500 ml @ 250 mls/hr 1X ONCE IV ; Start at 18:00; Stop 06/08/18 at 19:10; Status DC Potassium Chloride (Klor-Con) 40 meq 1X ONCE PO Last administered on at 20:36; Start 06/08/18 at 19:30; Stop 06/08/18 at 19:35; Status DC Daptomycin 600 mg/ Sodium Chloride 50 ml @ 100 mls/hr Q24H IV Last administered on 06/10/18at 20:48; Start 06/08/18 at 20:30 Meropenem 500 mg/ Sodium Chloride 50 ml @ 100 mls/hr Q6HRS IV Last administered on 06/11/18at 11:29; Start 06/08/18 at 20:00 Carvedilol (Coreg) 6.25 mg BIDWMEALS PO Last administered on 06/11/18 08:54; Start 06/09/18 at 08:00 Ergocalciferol (Vitamin D2) 50,000 unit QSU PO ; Start 06/12/18 at 16:00 EZETIMIBE (Zetia) 10 mg DAILY PO Last administered on 06/11/18 08:53; Start at 09:00 Potassium Chloride (Klor-Con) 10 meq DAILYWBKFT PO Last administered on 08:54; Start 06/09/18 at 08:00 Trazodone HCl (Desyrel) 100 mg QHS PO Last administered on 06/10/18 20:47; Start 06/08/18 at 22:45 Duloxetine HCl (Cymbalta) 60 mg BID PO Last administered on 06/11/18 08:53; Start 06/08/18 at 22:45 Citalopram Hydrobromide (CeleXA) 80 mg DAILY PO Last administered on 06/11/18 08:53; Start 06/09/18 at 09:00 Hydromorphone HCl (Dilaudid) 4 mg PRN Q4HRS PRN PO PAIN; Start 06/08/18 at 22: 45; Stop 06/09/18 at 09:25; Status DC Famotidine (Pepcid) 40 mg HS PO Last administered on 06/10/18 20:47; Start at 22:45 Lactobacillus Rhamnosus (Culturelle) 1 cap BID PO Last administered on 08:53; Start 06/09/18 at 21:00 Ringer's Solution 1,000 ml @ 30 mls/hr Q24H IV ; Start 06/10/18 at 07:00; Stop 06/10/18 at 18:59; Status DC Prochlorperazine Edisylate (Compazine) 5 mg PACU PRN PRN IV NAUSEA, MRX1; Start 06/10/18 at 07:00; Stop 06/11/18 at 06:59; Status DC Sevoflurane (Ultane) 60 ml STK-MED ONCE IH ; Start 06/10/18 at 07:56; Stop 06/10 at 07:57; Status DC Propofol 20 ml @ As Directed STK-MED ONCE IV ; Start 06/10/18 at 07:57; Stop at 07:58; Status DC Lidocaine HCl (Lidocaine Pf 2% Vial) 5 ml STK-MED ONCE .ROUTE ; Start 06/10/18 at 07:57; Stop 06/10/18 at 07:58; Status DC Famotidine (Pepcid Vial) 20 mg STK-MED ONCE .ROUTE ; Start 06/10/18 at 07:59; Stop 06/10/18 at 08:00; Status DC Ketorolac Tromethamine (Toradol For Or Only) 30 mg STK-MED ONCE INJ ; Start at 08:26; Stop 06/10/18 at 08:27; Status DC Dexamethasone Sodium Phosphate (Decadron) 20 mg STK-MED ONCE .ROUTE ; Start at 08:26; Stop 06/10/18 at 08:27; Status DC Ondansetron HCl (Zofran) 4 mg STK-MED ONCE .ROUTE ; Start 06/10/18 at 08:26; Stop 06/10/18 at 08:27; Status DC Morphine Sulfate (Morphine Sulfate) 10 mg STK-MED ONCE .ROUTE ; Start 06/10/18 at 08:44; Stop 06/10/18 at 08:45; Status DC Morphine Sulfate (Morphine Sulfate) 2 mg STK-MED ONCE .ROUTE ; Start 06/10/18 at 10:05; Stop 06/10/18 at 10:06; Status DC Morphine Sulfate (Morphine Sulfate) 2 mg 1X ONCE IV Last administered on at 10:10; Start 06/10/18 at 10:15; Stop 06/10/18 at 10:16; Status DC Hydromorphone HCl (Dilaudid) 1 mg PRN Q4HRS PRN IVP PAIN Last administered on at 12:11; Start 06/10/18 at 12:00 Triamterene/HCTZ (Maxzide 37.5/ 25mg) 2 tab DAILY PO Last administered on at 11:19; Start 06/11/18 at 11:00 Active Scripts Active Reported Triamterene-Hctz 75-50 Mg Tab (Triamterene/Hydrochlorothiazid) 1 Each Tablet 1 Tab PO DAILY Hydromorphone Hcl 4 Mg Tablet 4 Mg PO Q4HRS PRN Eliquis (Apixaban) 2.5 Mg Tablet 2.5 Mg PO BID Coreg (Carvedilol) 6.25 Mg Tablet 1 Tab PO BID Potassium Chloride 10 Meq Capsule.er 10 Meq PO UD Zetia (Ezetimibe) 10 Mg Tablet 1 Tab PO DAILY AM Vitamin D2 (Ergocalciferol (Vitamin D2)) 50,000 Unit Capsule 50,000 Unit PO QSU Lexapro (Escitalopram Oxalate) 20 Mg Tablet 40 Mg PO DAILY Trazodone Hcl 100 Mg Tablet 1 Tab PO QHS Ranitidine Hcl 300 Mg Capsule 1 Cap PO HS Cymbalta (Duloxetine Hcl) 60 Mg Capsule.dr 60 Mg PO BID Vitals/I & O Vital Sign - Last 24 Hours 06/10/18 06/10/18 06/10/18 06/10/18 13:40 15:00 17:35 19:35 Temp 98.3 98.6 98.3 98.6 Pulse 80 71 71 52 Resp 18 18 B/P (MAP) 128/71 (90) 137/61 (86) 137/61 133/76 (95) Pulse Ox 90 90 95 O2 Delivery Nasal Cannula Room Air Room Air O2 Flow Rate 2.0 06/10/18 06/10/18 06/11/18 06/11/18 20:00 23:59 03:59 07:00 Temp 98.3 98.3 97.8 98.3 98.3 97.8 Pulse 66 65 68 Resp 17 17 18 B/P (MAP) 117/47 (70) 131/59 (83) 121/52 (75) Pulse Ox 94 93 99 O2 Delivery Room Air Room Air Room Air Room Air 06/11/18 06/11/18 06/11/18 08:15 08:54 10:57 Temp 98.5 98.5 Pulse 68 69 Resp 18 B/P (MAP) 121/52 115/46 (69) Pulse Ox 97 O2 Delivery Room Air Room Air Intake and Output 06/10/18 06/10/18 06/11/18 15:00 23:00 07:00 Intake Total 840 ml 120 ml 350 ml Output Total 50 ml 550 ml 400 ml Balance 790 ml -430 ml -50 ml DEIRDRE AVILA MD Jun 11, 2018 13:05
--- NOTE | 2018-06-11 14:07 | PDOC ---
Infectious Disease Note Subjective Subjective Wt bearing as tolerated Pain controlled [place] sick yesterday, but better today Denies F/C/S/N/V/D ROS ROS per HPI otherwise neg Vital Sign Vital Signs Vital Signs Date Time Temp Pulse Resp B/P (MAP) Pulse Ox O2 Delivery O2 Flow Rate FiO2 06/11/18 10:57 98.5 69 18 115/46 (69) 97 Room Air 98.5 06/10/18 13:40 2.0 Physical Exam PHYSICAL EXAM GENERAL: Propped up in bed, alert, smiling . HEENT: Atraumatic, Oral cavity clear HEART: Regular rate and rhythm. LUNGS: Clear to auscultation bilaterally. ABDOMEN: Obese, soft, NT EXTREMITIES: Right knee wound vac in place along with immobilizer. 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 GRAM STAIN RES 2 Final No organisms seen Objective Assessment Right postsurgical knee site pain, swelling and drainage concern for infection. cultures from 04/20 & 05/17 no growth. s/p Exploration and debridement with application wound VAC, 06/10 Intra-op cultures pending. 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 f/u cultures f/u am labs PT/OT Attending Co-Sign Attending Co-Sign The patient was seen and interviewed as well as examined at the bedside. The chart was reviewed. The case was discussed. Agree with the plan of care. MARYCARMEN BENITEZ APRN Jun 11, 2018 14:07 MARIA INES ZARAGOZA MD Jun 11, 2018 15:32
[2018-06-11 15:53] VITALS: BP 100/46
[2018-06-11] MEDS: HYDROmorphone 4 MG TABLET PO PRN (17:58)
[2018-06-11 19:59] VITALS: BP 121/60
[2018-06-11] MEDS: DAPTOmycin (GENERIC) IVPB 600 MG in IV NORMAL SALINE 50ML 50 ML IV SCH (20:39)
[2018-06-11] MEDS: traZODone 100 MG TABLET. PO SCH (20:40)
[2018-06-11] MEDS: FAMOTIDINE 20 MG TABLET. PO SCH (20:40)
[2018-06-11 23:30] VITALS: BP 117/60
[2018-06-12 03:50] VITALS: BP 121/52
[2018-06-12 03:58] LABS: BASO % 1 % (0-3); EOS # 0.1 x10^3/uL (0.0-0.7); EOS % 2 % (0-3); HEMATOCRIT 35.3 % (36.0-47.0); HEMOGLOBIN 11.2 g/dL (12.0-15.5); LYMPH # 2.4 x10^3/uL (1.0-4.8); LYMPH % 32 % (24-48); MEAN CORPUSCULAR HEMOGLOBIN 28 pg (25-35); MEAN CORPUSCULAR HGB CONC 32 g/dL (31-37); MEAN CORPUSCULAR VOLUME 86 fL (79-100); MONO # 0.3 x10^3/uL (0.0-1.1); MONO % 4 % (0-9); NEUT # 4.7 x10^3uL (1.8-7.7); NEUT % 62 % (31-73); PLATELET COUNT 260 x10^3/uL (140-400); RED BLOOD COUNT 4.09 x10^6/uL (3.50-5.40); RED CELL DISTRIBUTION WIDTH 14.1 % (11.5-14.5); WHITE BLOOD COUNT 7.6 x10^3/uL (4.0-11.0)
[2018-06-12 04:30] LABS: ALBUMIN 2.8 g/dL (3.4-5.0); ALBUMIN/GLOBULIN RATIO 0.8 (1.0-1.7); CALCIUM 8.6 mg/dL (8.5-10.1); GFR 55.1; POTASSIUM 3.4 mmol/L (3.5-5.1); TOTAL BILIRUBIN 0.3 mg/dL (0.2-1.0); TOTAL PROTEIN 6.1 g/dL (6.4-8.2)
[2018-06-12] MEDS: MEROPENEM 500 MG in IV NORMAL SALINE 50ML 50 ML IV SCH ×4 (05:32→23:56)
[2018-06-12 07:00] VITALS: BP 146/67
--- NOTE | 2018-06-12 08:59 | PDOC ---
PROGRESS NOTES Chief Complaint Chief Complaint right knee pain and swelling and drainage GEn weakness - PT recs SNU chronic back pain and neuropathic pain obesity, BMI 37 hyperlipidemia, familiar, goes to lipid clinic hypokalemia, improved, CKD 2, s/p partial nephrectomy depression, insomnia History of Present Illness History of Present Illness IN deep sleep, I did not awaken CHart reviewed PT recs SNU, she came from home with spouse labs ok, no fever K 3.4 PLAN: SW SNU screen (with wound vac?) INc KCL from 10 to 40 PO qD COnt the rest of orders otherwise Vitals Vitals Vital Signs Date Time Temp Pulse Resp B/P (MAP) Pulse Ox O2 Delivery O2 Flow Rate FiO2 06/12/18 07:00 98.4 60 16 146/67 (93) 98 Room Air 98.4 Physical Exam Physical Exam GENERAL: Propped up in bed, alert, smiling . HEENT: Atraumatic, Oral cavity clear HEART: Regular rate and rhythm. LUNGS: Clear to auscultation bilaterally. ABDOMEN: Obese, soft, NT EXTREMITIES: Right knee wound vac in place along with immobilizer. 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 SKIN: No rash PIV General: Alert, Oriented X3, Cooperative, No acute distress Heart: Regular rate, Gallops Lungs: Clear Abdomen: Soft Extremities: No cyanosis Labs LABS Laboratory Tests Test 06/12/18 03:00 White Blood Count 7.6 x10^3/uL (4.0-11.0) Red Blood Count 4.09 x10^6/uL (3.50-5.40) Hemoglobin 11.2 g/dL (12.0-15.5) Hematocrit 35.3 % (36.0-47.0) Mean Corpuscular Volume 86 fL (79-100) Mean Corpuscular Hemoglobin 28 pg (25-35) Mean Corpuscular Hemoglobin Concent 32 g/dL (31-37) Red Cell Distribution Width 14.1 % (11.5-14.5) Platelet Count 260 x10^3/uL (140-400) Neutrophils (%) (Auto) 62 % (31-73) Lymphocytes (%) (Auto) 32 % (24-48) Monocytes (%) (Auto) 4 % (0-9) Eosinophils (%) (Auto) 2 % (0-3) Basophils (%) (Auto) 1 % (0-3) Neutrophils # (Auto) 4.7 x10^3uL (1.8-7.7) Lymphocytes # (Auto) 2.4 x10^3/uL (1.0-4.8) Monocytes # (Auto) 0.3 x10^3/uL (0.0-1.1) Eosinophils # (Auto) 0.1 x10^3/uL (0.0-0.7) Basophils # (Auto) 0.0 x10^3/uL (0.0-0.2) Sodium Level 141 mmol/L (136-145) Potassium Level 3.4 mmol/L (3.5-5.1) Chloride Level 102 mmol/L (98-107) Carbon Dioxide Level 35 mmol/L (21-32) Anion Gap 4 (6-14) Blood Urea Nitrogen 21 mg/dL (7-20) Creatinine 1.0 mg/dL (0.6-1.0) Estimated GFR (Cockcroft-Gault) 55.1 BUN/Creatinine Ratio 21 (6-20) Glucose Level 95 mg/dL (70-99) Calcium Level 8.6 mg/dL (8.5-10.1) Total Bilirubin 0.3 mg/dL (0.2-1.0) Aspartate Amino Transf (AST/SGOT) 12 U/L (15-37) Alanine Aminotransferase (ALT/SGPT) 15 U/L (14-59) Alkaline Phosphatase 51 U/L (46-116) Total Protein 6.1 g/dL (6.4-8.2) Albumin 2.8 g/dL (3.4-5.0) Albumin/Globulin Ratio 0.8 (1.0-1.7) Review of Systems Review of Systems asleep, i did not awaken Comment Review of Relevant I have reviewed the following items dieter (where applicable) has been applied. Labs Laboratory Tests Test 06/12/18 03:00 White Blood Count 7.6 x10^3/uL (4.0-11.0) Red Blood Count 4.09 x10^6/uL (3.50-5.40) Hemoglobin 11.2 g/dL (12.0-15.5) Hematocrit 35.3 % (36.0-47.0) Mean Corpuscular Volume 86 fL (79-100) Mean Corpuscular Hemoglobin 28 pg (25-35) Mean Corpuscular Hemoglobin Concent 32 g/dL (31-37) Red Cell Distribution Width 14.1 % (11.5-14.5) Platelet Count 260 x10^3/uL (140-400) Neutrophils (%) (Auto) 62 % (31-73) Lymphocytes (%) (Auto) 32 % (24-48) Monocytes (%) (Auto) 4 % (0-9) Eosinophils (%) (Auto) 2 % (0-3) Basophils (%) (Auto) 1 % (0-3) Neutrophils # (Auto) 4.7 x10^3uL (1.8-7.7) Lymphocytes # (Auto) 2.4 x10^3/uL (1.0-4.8) Monocytes # (Auto) 0.3 x10^3/uL (0.0-1.1) Eosinophils # (Auto) 0.1 x10^3/uL (0.0-0.7) Basophils # (Auto) 0.0 x10^3/uL (0.0-0.2) Sodium Level 141 mmol/L (136-145) Potassium Level 3.4 mmol/L (3.5-5.1) Chloride Level 102 mmol/L (98-107) Carbon Dioxide Level 35 mmol/L (21-32) Anion Gap 4 (6-14) Blood Urea Nitrogen 21 mg/dL (7-20) Creatinine 1.0 mg/dL (0.6-1.0) Estimated GFR (Cockcroft-Gault) 55.1 BUN/Creatinine Ratio 21 (6-20) Glucose Level 95 mg/dL (70-99) Calcium Level 8.6 mg/dL (8.5-10.1) Total Bilirubin 0.3 mg/dL (0.2-1.0) Aspartate Amino Transf (AST/SGOT) 12 U/L (15-37) Alanine Aminotransferase (ALT/SGPT) 15 U/L (14-59) Alkaline Phosphatase 51 U/L (46-116) Total Protein 6.1 g/dL (6.4-8.2) Albumin 2.8 g/dL (3.4-5.0) Albumin/Globulin Ratio 0.8 (1.0-1.7) Laboratory Tests Test 06/12/18 03:00 White Blood Count 7.6 x10^3/uL (4.0-11.0) Red Blood Count 4.09 x10^6/uL (3.50-5.40) Hemoglobin 11.2 g/dL (12.0-15.5) Hematocrit 35.3 % (36.0-47.0) Mean Corpuscular Volume 86 fL (79-100) Mean Corpuscular Hemoglobin 28 pg (25-35) Mean Corpuscular Hemoglobin Concent 32 g/dL (31-37) Red Cell Distribution Width 14.1 % (11.5-14.5) Platelet Count 260 x10^3/uL (140-400) Neutrophils (%) (Auto) 62 % (31-73) Lymphocytes (%) (Auto) 32 % (24-48) Monocytes (%) (Auto) 4 % (0-9) Eosinophils (%) (Auto) 2 % (0-3) Basophils (%) (Auto) 1 % (0-3) Neutrophils # (Auto) 4.7 x10^3uL (1.8-7.7) Lymphocytes # (Auto) 2.4 x10^3/uL (1.0-4.8) Monocytes # (Auto) 0.3 x10^3/uL (0.0-1.1) Eosinophils # (Auto) 0.1 x10^3/uL (0.0-0.7) Basophils # (Auto) 0.0 x10^3/uL (0.0-0.2) Sodium Level 141 mmol/L (136-145) Potassium Level 3.4 mmol/L (3.5-5.1) Chloride Level 102 mmol/L (98-107) Carbon Dioxide Level 35 mmol/L (21-32) Anion Gap 4 (6-14) Blood Urea Nitrogen 21 mg/dL (7-20) Creatinine 1.0 mg/dL (0.6-1.0) Estimated GFR (Cockcroft-Gault) 55.1 BUN/Creatinine Ratio 21 (6-20) Glucose Level 95 mg/dL (70-99) Calcium Level 8.6 mg/dL (8.5-10.1) Total Bilirubin 0.3 mg/dL (0.2-1.0) Aspartate Amino Transf (AST/SGOT) 12 U/L (15-37) Alanine Aminotransferase (ALT/SGPT) 15 U/L (14-59) Alkaline Phosphatase 51 U/L (46-116) Total Protein 6.1 g/dL (6.4-8.2) Albumin 2.8 g/dL (3.4-5.0) Albumin/Globulin Ratio 0.8 (1.0-1.7) Medications Current Medications Magnesium Hydroxide (Milk Of Magnesia) 2,400 mg 1X PRN PRN PO CONSTIPATION; Start 06/09/18 at 06:00; Stop 06/10/18 at 06:00; Status DC Calcium Carbonate/ Glycine (Tums) 500 mg PRN QID PRN PO INDIGESTION; Start at 17:45 Sodium Chloride (Normal Saline Flush) 10 ml QSHIFT PRN IV AFTER MEDS AND BLOOD DRAWS; Start 06/08/18 at 17:45 Ondansetron HCl (Zofran) 4 mg Q6HRS IV Last administered on 06/09/18at 06:29; Start 06/08/18 at 18:00; Stop 06/09/18 at 12:01; Status DC Ondansetron HCl (Zofran Odt) 4 mg Q6HRS PO ; Start 06/08/18 at 18:00; Stop 06/09 at 12:01; Status DC Ondansetron HCl (Zofran) 4 mg PRN Q6HRS PRN IV Nausea/vomiting, 1st choice Last administered on 06/10/18at 17:30; Start 06/09/18 at 12:00 Ondansetron HCl (Zofran Odt) 4 mg PRN Q6HRS PRN PO Nausea/vomiting, 1st choice Last administered on 06/11/18at 09:15; Start 06/09/18 at 12:00 Insulin Human Lispro (HumaLOG) 0-5 UNITS TIDWMEALS SQ ; Start 06/09/18 at 08:00 ; Stop 06/09/18 at 09:25; Status DC Dextrose (Dextrose 50%-Water Syringe) 12.5 gm PRN Q15MIN PRN IV SEE COMMENTS; Start 06/08/18 at 17:45; Stop 06/09/18 at 09:25; Status DC Hydromorphone HCl (Dilaudid) 4 mg PRN Q4HRS PRN PO PAIN Last administered on at 17:58; Start 06/08/18 at 17:45 Vancomycin HCl (Vanco Per Pharmacy) 1 each PRN DAILY PRN MC SEE COMMENTS; Start 06/08/18 at 17:45; Stop 06/08/18 at 19:10; Status DC Vancomycin HCl 2 gm/Sodium Chloride 500 ml @ 250 mls/hr 1X ONCE IV ; Start at 18:00; Stop 06/08/18 at 19:10; Status DC Potassium Chloride (Klor-Con) 40 meq 1X ONCE PO Last administered on at 20:36; Start 06/08/18 at 19:30; Stop 06/08/18 at 19:35; Status DC Daptomycin 600 mg/ Sodium Chloride 50 ml @ 100 mls/hr Q24H IV Last administered on 06/11/18at 20:39; Start 06/08/18 at 20:30 Meropenem 500 mg/ Sodium Chloride 50 ml @ 100 mls/hr Q6HRS IV Last administered on 06/12/18 05:32; Start 06/08/18 at 20:00 Carvedilol (Coreg) 6.25 mg BIDWMEALS PO Last administered on 06/11/18 20:06; Start 06/09/18 at 08:00 Ergocalciferol (Vitamin D2) 50,000 unit QSU PO ; Start 06/12/18 at 16:00 EZETIMIBE (Zetia) 10 mg DAILY PO Last administered on 06/11/18 08:53; Start at 09:00 Potassium Chloride (Klor-Con) 10 meq DAILYWBKFT PO Last administered on 08:54; Start 06/09/18 at 08:00 Trazodone HCl (Desyrel) 100 mg QHS PO Last administered on 06/11/18 20:40; Start 06/08/18 at 22:45 Duloxetine HCl (Cymbalta) 60 mg BID PO Last administered on 06/11/18 20:39; Start 06/08/18 at 22:45 Citalopram Hydrobromide (CeleXA) 80 mg DAILY PO Last administered on 3/30/19at 08:53; Start 06/09/18 at 09:00 Hydromorphone HCl (Dilaudid) 4 mg PRN Q4HRS PRN PO PAIN; Start 06/08/18 at 22: 45; Stop 06/09/18 at 09:25; Status DC Famotidine (Pepcid) 40 mg HS PO Last administered on 06/11/18at 20:40; Start at 22:45 Lactobacillus Rhamnosus (Culturelle) 1 cap BID PO Last administered on at 20:40; Start 06/09/18 at 21:00 Ringer's Solution 1,000 ml @ 30 mls/hr Q24H IV ; Start 06/10/18 at 07:00; Stop 06/10/18 at 18:59; Status DC Prochlorperazine Edisylate (Compazine) 5 mg PACU PRN PRN IV NAUSEA, MRX1; Start 06/10/18 at 07:00; Stop 06/11/18 at 06:59; Status DC Sevoflurane (Ultane) 60 ml STK-MED ONCE IH ; Start 06/10/18 at 07:56; Stop 06/10 at 07:57; Status DC Propofol 20 ml @ As Directed STK-MED ONCE IV ; Start 06/10/18 at 07:57; Stop at 07:58; Status DC Lidocaine HCl (Lidocaine Pf 2% Vial) 5 ml STK-MED ONCE .ROUTE ; Start 06/10/18 at 07:57; Stop 06/10/18 at 07:58; Status DC Famotidine (Pepcid Vial) 20 mg STK-MED ONCE .ROUTE ; Start 06/10/18 at 07:59; Stop 06/10/18 at 08:00; Status DC Ketorolac Tromethamine (Toradol For Or Only) 30 mg STK-MED ONCE INJ ; Start at 08:26; Stop 06/10/18 at 08:27; Status DC Dexamethasone Sodium Phosphate (Decadron) 20 mg STK-MED ONCE .ROUTE ; Start at 08:26; Stop 06/10/18 at 08:27; Status DC Ondansetron HCl (Zofran) 4 mg STK-MED ONCE .ROUTE ; Start 06/10/18 at 08:26; Stop 06/10/18 at 08:27; Status DC Morphine Sulfate (Morphine Sulfate) 10 mg STK-MED ONCE .ROUTE ; Start 06/10/18 at 08:44; Stop 06/10/18 at 08:45; Status DC Morphine Sulfate (Morphine Sulfate) 2 mg STK-MED ONCE .ROUTE ; Start 06/10/18 at 10:05; Stop 06/10/18 at 10:06; Status DC Morphine Sulfate (Morphine Sulfate) 2 mg 1X ONCE IV Last administered on at 10:10; Start 06/10/18 at 10:15; Stop 06/10/18 at 10:16; Status DC Hydromorphone HCl (Dilaudid) 1 mg PRN Q4HRS PRN IVP PAIN Last administered on at 12:11; Start 06/10/18 at 12:00 Triamterene/HCTZ (Maxzide 37.5/ 25mg) 2 tab DAILY PO Last administered on at 11:19; Start 06/11/18 at 11:00 Active Scripts Active Reported Triamterene-Hctz 75-50 Mg Tab (Triamterene/Hydrochlorothiazid) 1 Each Tablet 1 Tab PO DAILY Hydromorphone Hcl 4 Mg Tablet 4 Mg PO Q4HRS PRN Eliquis (Apixaban) 2.5 Mg Tablet 2.5 Mg PO BID Coreg (Carvedilol) 6.25 Mg Tablet 1 Tab PO BID Potassium Chloride 10 Meq Capsule.er 10 Meq PO UD Zetia (Ezetimibe) 10 Mg Tablet 1 Tab PO DAILY AM Vitamin D2 (Ergocalciferol (Vitamin D2)) 50,000 Unit Capsule 50,000 Unit PO QSU Lexapro (Escitalopram Oxalate) 20 Mg Tablet 40 Mg PO DAILY Trazodone Hcl 100 Mg Tablet 1 Tab PO QHS Ranitidine Hcl 300 Mg Capsule 1 Cap PO HS Cymbalta (Duloxetine Hcl) 60 Mg Capsule.dr 60 Mg PO BID Vitals/I & O Vital Sign - Last 24 Hours 06/11/18 06/11/18 06/11/18 06/11/18 10:57 15:53 19:45 19:59 Temp 98.5 98.7 98.7 98.5 98.7 98.7 Pulse 69 62 64 Resp 18 18 19 B/P (MAP) 115/46 (69) 100/46 (64) 121/60 (80) Pulse Ox 97 95 96 O2 Delivery Room Air Room Air Room Air Room Air 06/11/18 06/11/18 06/12/18 06/12/18 20:06 23:30 03:50 07:00 Temp 98.6 98.2 98.4 98.6 98.2 98.4 Pulse 64 62 52 60 Resp 18 17 16 B/P (MAP) 121/60 117/60 (79) 121/52 (75) 146/67 (93) Pulse Ox 95 97 98 O2 Delivery Room Air Room Air Room Air Intake and Output 06/11/18 06/11/18 06/12/18 14:59 22:59 06:59 Intake Total 50 ml 250 ml Output Total 350 ml 100 ml 200 ml Balance -350 ml -50 ml 50 ml HODA ABRAHAM MD Jun 12, 2018 08:59
[2018-06-12] MEDS: LACTOBACILLUS RHAMNOSUS GG 1 CAPSULE. PO SCH ×2 (10:12→21:12)
[2018-06-12] MEDS: DULoxetine HCL 30 MG CAPSULE.DR PO SCH ×2 (10:12→21:12)
[2018-06-12] MEDS: EZETIMIBE 10 MG TABLET. PO SCH (10:12)
[2018-06-12] MEDS: CITALOPRAM 20 MG TABLET. PO SCH (10:13)
[2018-06-12] MEDS: TRIAMTERENE/HCTZ 37.5/25MG TABLET. PO SCH (10:14)
[2018-06-12] MEDS: POTASSIUM CHLORIDE 10 MEQ TABLET.ER. PO SCH (10:45)
[2018-06-12 10:47] VITALS: BP 136/64
--- NOTE | 2018-06-12 12:28 | PDOC ---
Infectious Disease Note Subjective Subjective Wt bearing as tolerated Knee feeling better, less swollen, pain controlled Denies F/C/S/N/V/D/aches ROS ROS per HPI otherwise neg Vital Sign Vital Signs Vital Signs Date Time Temp Pulse Resp B/P (MAP) Pulse Ox O2 Delivery O2 Flow Rate FiO2 06/12/18 10:47 98.1 52 16 136/64 (88) 96 Room Air 98.1 Physical Exam PHYSICAL EXAM GENERAL: Propped up in bed, alert, smiling, eating HEENT: Oral cavity clear HEART: Regular rate and rhythm. LUNGS: Clear to auscultation bilaterally. ABDOMEN: Obese, soft, NT EXTREMITIES: Right knee wound vac in place along with immobilizer. 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 appropriately SKIN: No rash PIV Labs Lab Laboratory Tests Test 06/12/18 03:00 White Blood Count 7.6 x10^3/uL (4.0-11.0) Red Blood Count 4.09 x10^6/uL (3.50-5.40) Hemoglobin 11.2 g/dL (12.0-15.5) Hematocrit 35.3 % (36.0-47.0) Mean Corpuscular Volume 86 fL (79-100) Mean Corpuscular Hemoglobin 28 pg (25-35) Mean Corpuscular Hemoglobin Concent 32 g/dL (31-37) Red Cell Distribution Width 14.1 % (11.5-14.5) Platelet Count 260 x10^3/uL (140-400) Neutrophils (%) (Auto) 62 % (31-73) Lymphocytes (%) (Auto) 32 % (24-48) Monocytes (%) (Auto) 4 % (0-9) Eosinophils (%) (Auto) 2 % (0-3) Basophils (%) (Auto) 1 % (0-3) Neutrophils # (Auto) 4.7 x10^3uL (1.8-7.7) Lymphocytes # (Auto) 2.4 x10^3/uL (1.0-4.8) Monocytes # (Auto) 0.3 x10^3/uL (0.0-1.1) Eosinophils # (Auto) 0.1 x10^3/uL (0.0-0.7) Basophils # (Auto) 0.0 x10^3/uL (0.0-0.2) Sodium Level 141 mmol/L (136-145) Potassium Level 3.4 mmol/L (3.5-5.1) Chloride Level 102 mmol/L (98-107) Carbon Dioxide Level 35 mmol/L (21-32) Anion Gap 4 (6-14) Blood Urea Nitrogen 21 mg/dL (7-20) Creatinine 1.0 mg/dL (0.6-1.0) Estimated GFR (Cockcroft-Gault) 55.1 BUN/Creatinine Ratio 21 (6-20) Glucose Level 95 mg/dL (70-99) Calcium Level 8.6 mg/dL (8.5-10.1) Total Bilirubin 0.3 mg/dL (0.2-1.0) Aspartate Amino Transf (AST/SGOT) 12 U/L (15-37) Alanine Aminotransferase (ALT/SGPT) 15 U/L (14-59) Alkaline Phosphatase 51 U/L (46-116) Total Protein 6.1 g/dL (6.4-8.2) Albumin 2.8 g/dL (3.4-5.0) Albumin/Globulin Ratio 0.8 (1.0-1.7) Micro ANAEROBIC-AEROBIC CULTURE PENDING ANAEROBIC RES 1 PENDING AEROBIC CULT PENDING AEROBIC RES 1 PENDING GRAM STAIN Final Final report GRAM STAIN RES 1 Final Comment No white blood cells seen. GRAM STAIN RES 2 Final No organisms seen Objective Assessment Right postsurgical knee site pain, swelling and drainage concern for infection. cultures from 04/20, 05/17, 06/08 no growth. 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 Cultures NGTD Monitor labs PT/OT - has been ambulating in hallway Attending Co-Sign Attending Co-Sign The patient was seen and interviewed as well as examined at the bedside. The chart was reviewed. The case was discussed. Agree with the plan of care. MARYCARMEN BENITEZ APRN Jun 12, 2018 12:28 MARIA INES ZARAGOZA MD Jun 12, 2018 16:20
[2018-06-12 15:00] VITALS: BP 136/61
--- NOTE | 2018-06-12 15:26 | PDOC ---
ORTHO PROGRESS NOTES Subjective No new complaints, pain controlled Vitals Vital Signs Date Time Temp Pulse Resp B/P (MAP) Pulse Ox O2 Delivery O2 Flow Rate FiO2 06/12/18 10:47 98.1 52 16 136/64 (88) 96 Room Air 98.1 Labs Laboratory Tests Test 06/12/18 03:00 White Blood Count 7.6 x10^3/uL (4.0-11.0) Red Blood Count 4.09 x10^6/uL (3.50-5.40) Hemoglobin 11.2 g/dL (12.0-15.5) Hematocrit 35.3 % (36.0-47.0) Mean Corpuscular Volume 86 fL (79-100) Mean Corpuscular Hemoglobin 28 pg (25-35) Mean Corpuscular Hemoglobin Concent 32 g/dL (31-37) Red Cell Distribution Width 14.1 % (11.5-14.5) Platelet Count 260 x10^3/uL (140-400) Neutrophils (%) (Auto) 62 % (31-73) Lymphocytes (%) (Auto) 32 % (24-48) Monocytes (%) (Auto) 4 % (0-9) Eosinophils (%) (Auto) 2 % (0-3) Basophils (%) (Auto) 1 % (0-3) Neutrophils # (Auto) 4.7 x10^3uL (1.8-7.7) Lymphocytes # (Auto) 2.4 x10^3/uL (1.0-4.8) Monocytes # (Auto) 0.3 x10^3/uL (0.0-1.1) Eosinophils # (Auto) 0.1 x10^3/uL (0.0-0.7) Basophils # (Auto) 0.0 x10^3/uL (0.0-0.2) Sodium Level 141 mmol/L (136-145) Potassium Level 3.4 mmol/L (3.5-5.1) Chloride Level 102 mmol/L (98-107) Carbon Dioxide Level 35 mmol/L (21-32) Anion Gap 4 (6-14) Blood Urea Nitrogen 21 mg/dL (7-20) Creatinine 1.0 mg/dL (0.6-1.0) Estimated GFR (Cockcroft-Gault) 55.1 BUN/Creatinine Ratio 21 (6-20) Glucose Level 95 mg/dL (70-99) Calcium Level 8.6 mg/dL (8.5-10.1) Total Bilirubin 0.3 mg/dL (0.2-1.0) Aspartate Amino Transf (AST/SGOT) 12 U/L (15-37) Alanine Aminotransferase (ALT/SGPT) 15 U/L (14-59) Alkaline Phosphatase 51 U/L (46-116) Total Protein 6.1 g/dL (6.4-8.2) Albumin 2.8 g/dL (3.4-5.0) Albumin/Globulin Ratio 0.8 (1.0-1.7) Laboratory Tests Test 06/12/18 03:00 White Blood Count 7.6 x10^3/uL (4.0-11.0) Red Blood Count 4.09 x10^6/uL (3.50-5.40) Hemoglobin 11.2 g/dL (12.0-15.5) Hematocrit 35.3 % (36.0-47.0) Mean Corpuscular Volume 86 fL (79-100) Mean Corpuscular Hemoglobin 28 pg (25-35) Mean Corpuscular Hemoglobin Concent 32 g/dL (31-37) Red Cell Distribution Width 14.1 % (11.5-14.5) Platelet Count 260 x10^3/uL (140-400) Neutrophils (%) (Auto) 62 % (31-73) Lymphocytes (%) (Auto) 32 % (24-48) Monocytes (%) (Auto) 4 % (0-9) Eosinophils (%) (Auto) 2 % (0-3) Basophils (%) (Auto) 1 % (0-3) Neutrophils # (Auto) 4.7 x10^3uL (1.8-7.7) Lymphocytes # (Auto) 2.4 x10^3/uL (1.0-4.8) Monocytes # (Auto) 0.3 x10^3/uL (0.0-1.1) Eosinophils # (Auto) 0.1 x10^3/uL (0.0-0.7) Basophils # (Auto) 0.0 x10^3/uL (0.0-0.2) Sodium Level 141 mmol/L (136-145) Potassium Level 3.4 mmol/L (3.5-5.1) Chloride Level 102 mmol/L (98-107) Carbon Dioxide Level 35 mmol/L (21-32) Anion Gap 4 (6-14) Blood Urea Nitrogen 21 mg/dL (7-20) Creatinine 1.0 mg/dL (0.6-1.0) Estimated GFR (Cockcroft-Gault) 55.1 BUN/Creatinine Ratio 21 (6-20) Glucose Level 95 mg/dL (70-99) Calcium Level 8.6 mg/dL (8.5-10.1) Total Bilirubin 0.3 mg/dL (0.2-1.0) Aspartate Amino Transf (AST/SGOT) 12 U/L (15-37) Alanine Aminotransferase (ALT/SGPT) 15 U/L (14-59) Alkaline Phosphatase 51 U/L (46-116) Total Protein 6.1 g/dL (6.4-8.2) Albumin 2.8 g/dL (3.4-5.0) Albumin/Globulin Ratio 0.8 (1.0-1.7) Notes A and A in bed remains NVI RLE VAC in place with good seal Assessment and Plan no new orders awaiting placement HAYLEY NAVARRO II, MD Jun 12, 2018 15:26
[2018-06-12] MEDS ORDERED: ERGOCALCIFEROL (VITAMIN D2) 50,000 UNIT CAPSULE. PO SCH (16:00)
[2018-06-12] MEDS: CARVEDILOL 6.25 MG TABLET. PO SCH (16:46)
[2018-06-12] MEDS: HYDROmorphone 4 MG TABLET PO PRN (18:14)
[2018-06-12 19:00] VITALS: BP 104/46
[2018-06-12] MEDS: traZODone 100 MG TABLET. PO SCH (21:12)
[2018-06-12] MEDS: FAMOTIDINE 20 MG TABLET. PO SCH (21:12)
[2018-06-12] MEDS: DAPTOmycin (GENERIC) IVPB 600 MG in IV NORMAL SALINE 50ML 50 ML IV SCH (21:13)
[2018-06-12 22:41] VITALS: BP 104/53
[2018-06-13 03:00] VITALS: BP 145/72
[2018-06-13] MEDS: MEROPENEM 500 MG in IV NORMAL SALINE 50ML 50 ML IV SCH (05:25)
[2018-06-13 07:00] VITALS: BP 156/68
[2018-06-13] MEDS ORDERED: POTASSIUM CHLORIDE 10 MEQ TABLET.ER. PO SCH (08:00)
--- NOTE | 2018-06-13 08:59 | PDOC ---
PROGRESS NOTES Chief Complaint Chief Complaint right knee pain and swelling and drainage GEn weakness - PT recs SNU chronic back pain and neuropathic pain obesity, BMI 37 hyperlipidemia, familiar, goes to lipid clinic hypokalemia, improved, CKD 2, s/p partial nephrectomy depression, insomnia History of Present Illness History of Present Illness PT recs SNU, she came from home with spouse labs ok, no fever. K 3.4 yesterday, labs pending She has less swelling today, but more weakness. Some SOB, no CP. PLAN: Labs this morning SW SNU screen (with wound vac?) INc KCL from 10 to 40 PO qD COnt the rest of orders otherwise A/P: Hypoxia - significant respiratory history for CASTRO previously on QHS CPAP. I would reinitiate this and recommend she return to sleep medicine physician. She is rather opioid tolerant and has not has problems with anesthesia previously, so likely her CASTRO needs further treatment. Will have her back on CPAP QHS Repeat right total knee arthroplasty, status post explantation, debridement and insertion of antibiotic spacer on 04/16/2017 - now with repeat surgery, rehab plans per ortho Hypertension - cont meds, restart Maxzide today Hypercholesterolemia - cont statin Obesity - counseled on f/u with bariatric surgery Gastroesophageal reflux - cont PPI, may need liquid carafate if this worsens again Lap band in 05/2009 - needs f/u with bariatric after her weight gain Renal cancer s/p left nephrectomy - had good f/u Depression - may be a better candidate for wellbutrin or effexor with her h/o weight gain, though anxiety could worsen, could use buspar as well. We have discussed in depth and will use trazodone to sleep tonight FEN - ADAT PPX - rec lovenox unless she will be ambulating soon FULL CODE Inpatient for SNF Thank you for this interesting consultation, we will continue to follow her while in house, call with any questions. [phone] or page overhead, [facility] as well History of Present Illness History of Present Illness Venecia is a 67-year-old female w/ PMHx hypertension, hypercholesterolemia, obesity, gastroesophageal reflux, lap band in 05/2009, CASTRO previously on CPAP, renal cancer s/p left nephrectomy, arthritis, depression, anxiety, and history of MRSA who previously had history of a right total knee arthroplasty in 2016 followed by a traumatic wound dehiscence following total knee arthroplasty and underwent explantation and revision for infection and subsequently had a periprosthetic fracture. 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 On 05/17/18 underwent extensive patellar reconstruction with allograft Achilles tendon and calcaneus bone block and after surgery experienced hypoxic respiratory failure that required BIPAP overnight and we are requested to assist in her care. On further review she began antidepressants and cycled through a number of medications last year and with her knee complications and the antidepressants she has gained 30-60 pounds and has cycled through losing weight and gaining it back. Has not had any lap band adjustments during this time. She notes that she did have CPAP nightly at home prior to her Lap band in 2009, but has since not required it, but her notes over the past month and half where she did gain more weight (30 pounds) that she has been snoring more and gasping at night. 05/19: Overnight she did not sleep well, is requesting a sleep aid. Her pain is reasonably controlled. She feels wiped out after PT. Has good spirits. IS bedside. No SOB or CP. passing flatus. No BM Still pretty sleepy today. Trazodone helped and blood pressure better with maxzide Plan discharge to rehabilitation facility today Eliquis 2.5mg twice a day plan 2 months Vitals Vitals Vital Signs Date Time Temp Pulse Resp B/P (MAP) Pulse Ox O2 Delivery O2 Flow Rate FiO2 06/13/18 07:00 98.3 61 18 156/68 (97) 98 Room Air 98.3 Physical Exam Physical Exam GENERAL: Propped up in bed, alert, smiling, eating HEENT: Oral cavity clear HEART: Regular rate and rhythm. LUNGS: Clear to auscultation bilaterally. ABDOMEN: Obese, soft, NT EXTREMITIES: Right knee wound vac in place along with immobilizer. 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 Labs Laboratory Tests Test 3/31/19 03:00 White Blood Count 7.6 x10^3/uL (4.0-11.0) Red Blood Count 4.09 x10^6/uL (3.50-5.40) Hemoglobin 11.2 g/dL (12.0-15.5) Hematocrit 35.3 % (36.0-47.0) Mean Corpuscular Volume 86 fL (79-100) Mean Corpuscular Hemoglobin 28 pg (25-35) Mean Corpuscular Hemoglobin Concent 32 g/dL (31-37) Red Cell Distribution Width 14.1 % (11.5-14.5) Platelet Count 260 x10^3/uL (140-400) Neutrophils (%) (Auto) 62 % (31-73) Lymphocytes (%) (Auto) 32 % (24-48) Monocytes (%) (Auto) 4 % (0-9) Eosinophils (%) (Auto) 2 % (0-3) Basophils (%) (Auto) 1 % (0-3) Neutrophils # (Auto) 4.7 x10^3uL (1.8-7.7) Lymphocytes # (Auto) 2.4 x10^3/uL (1.0-4.8) Monocytes # (Auto) 0.3 x10^3/uL (0.0-1.1) Eosinophils # (Auto) 0.1 x10^3/uL (0.0-0.7) Basophils # (Auto) 0.0 x10^3/uL (0.0-0.2) Sodium Level 141 mmol/L (136-145) Potassium Level 3.4 mmol/L (3.5-5.1) Chloride Level 102 mmol/L (98-107) Carbon Dioxide Level 35 mmol/L (21-32) Anion Gap 4 (6-14) Blood Urea Nitrogen 21 mg/dL (7-20) Creatinine 1.0 mg/dL (0.6-1.0) Estimated GFR (Cockcroft-Gault) 55.1 BUN/Creatinine Ratio 21 (6-20) Glucose Level 95 mg/dL (70-99) Calcium Level 8.6 mg/dL (8.5-10.1) Total Bilirubin 0.3 mg/dL (0.2-1.0) Aspartate Amino Transf (AST/SGOT) 12 U/L (15-37) Alanine Aminotransferase (ALT/SGPT) 15 U/L (14-59) Alkaline Phosphatase 51 U/L (46-116) Total Protein 6.1 g/dL (6.4-8.2) Albumin 2.8 g/dL (3.4-5.0) Albumin/Globulin Ratio 0.8 (1.0-1.7) Medications Current Medications Magnesium Hydroxide (Milk Of Magnesia) 2,400 mg 1X PRN PRN PO CONSTIPATION; Start 06/09/18 at 06:00; Stop 06/10/18 at 06:00; Status DC Calcium Carbonate/ Glycine (Tums) 500 mg PRN QID PRN PO INDIGESTION; Start at 17:45 Sodium Chloride (Normal Saline Flush) 10 ml QSHIFT PRN IV AFTER MEDS AND BLOOD DRAWS; Start 06/08/18 at 17:45 Ondansetron HCl (Zofran) 4 mg Q6HRS IV Last administered on 06/09/18at 06:29; Start 06/08/18 at 18:00; Stop 06/09/18 at 12:01; Status DC Ondansetron HCl (Zofran Odt) 4 mg Q6HRS PO ; Start 06/08/18 at 18:00; Stop 06/09 at 12:01; Status DC Ondansetron HCl (Zofran) 4 mg PRN Q6HRS PRN IV Nausea/vomiting, 1st choice Last administered on 06/10/18at 17:30; Start 06/09/18 at 12:00 Ondansetron HCl (Zofran Odt) 4 mg PRN Q6HRS PRN PO Nausea/vomiting, 1st choice Last administered on 06/11/18at 09:15; Start 06/09/18 at 12:00 Insulin Human Lispro (HumaLOG) 0-5 UNITS TIDWMEALS SQ ; Start 06/09/18 at 08:00 ; Stop 06/09/18 at 09:25; Status DC Dextrose (Dextrose 50%-Water Syringe) 12.5 gm PRN Q15MIN PRN IV SEE COMMENTS; Start 06/08/18 at 17:45; Stop 06/09/18 at 09:25; Status DC Hydromorphone HCl (Dilaudid) 4 mg PRN Q4HRS PRN PO PAIN Last administered on at 18:14; Start 06/08/18 at 17:45 Vancomycin HCl (Vanco Per Pharmacy) 1 each PRN DAILY PRN MC SEE COMMENTS; Start 06/08/18 at 17:45; Stop 06/08/18 at 19:10; Status DC Vancomycin HCl 2 gm/Sodium Chloride 500 ml @ 250 mls/hr 1X ONCE IV ; Start at 18:00; Stop 06/08/18 at 19:10; Status DC Potassium Chloride (Klor-Con) 40 meq 1X ONCE PO Last administered on at 20:36; Start 06/08/18 at 19:30; Stop 06/08/18 at 19:35; Status DC Daptomycin 600 mg/ Sodium Chloride 50 ml @ 100 mls/hr Q24H IV Last administered on 06/12/18at 21:13; Start 06/08/18 at 20:30 Meropenem 500 mg/ Sodium Chloride 50 ml @ 100 mls/hr Q6HRS IV Last administered on 06/13/18at 05:25; Start 06/08/18 at 20:00 Carvedilol (Coreg) 6.25 mg BIDWMEALS PO Last administered on 06/12/18 16:46; Start 06/09/18 at 08:00 Ergocalciferol (Vitamin D2) 50,000 unit QSU PO Last administered on 06/12/18 16:46; Start 06/12/18 at 16:00 EZETIMIBE (Zetia) 10 mg DAILY PO Last administered on 06/12/18at 10:12; Start at 09:00 Potassium Chloride (Klor-Con) 10 meq DAILYWBKFT PO Last administered on at 08:54; Start 06/09/18 at 08:00; Stop 06/12/18 at 08:59; Status DC Trazodone HCl (Desyrel) 100 mg QHS PO Last administered on 06/12/18at 21:12; Start 06/08/18 at 22:45 Duloxetine HCl (Cymbalta) 60 mg BID PO Last administered on 06/12/18 21:12; Start 06/08/18 at 22:45 Citalopram Hydrobromide (CeleXA) 80 mg DAILY PO Last administered on 06/12/18at 10:13; Start 06/09/18 at 09:00 Hydromorphone HCl (Dilaudid) 4 mg PRN Q4HRS PRN PO PAIN; Start 06/08/18 at 22: 45; Stop 06/09/18 at 09:25; Status DC Famotidine (Pepcid) 40 mg HS PO Last administered on 06/12/18at 21:12; Start at 22:45 Lactobacillus Rhamnosus (Culturelle) 1 cap BID PO Last administered on at 21:12; Start 06/09/18 at 21:00 Ringer's Solution 1,000 ml @ 30 mls/hr Q24H IV ; Start 06/10/18 at 07:00; Stop 06/10/18 at 18:59; Status DC Prochlorperazine Edisylate (Compazine) 5 mg PACU PRN PRN IV NAUSEA, MRX1; Start 06/10/18 at 07:00; Stop 06/11/18 at 06:59; Status DC Sevoflurane (Ultane) 60 ml STK-MED ONCE IH ; Start 06/10/18 at 07:56; Stop 06/10 at 07:57; Status DC Propofol 20 ml @ As Directed STK-MED ONCE IV ; Start 06/10/18 at 07:57; Stop at 07:58; Status DC Lidocaine HCl (Lidocaine Pf 2% Vial) 5 ml STK-MED ONCE .ROUTE ; Start 06/10/18 at 07:57; Stop 06/10/18 at 07:58; Status DC Famotidine (Pepcid Vial) 20 mg STK-MED ONCE .ROUTE ; Start 06/10/18 at 07:59; Stop 06/10/18 at 08:00; Status DC Ketorolac Tromethamine (Toradol For Or Only) 30 mg STK-MED ONCE INJ ; Start at 08:26; Stop 06/10/18 at 08:27; Status DC Dexamethasone Sodium Phosphate (Decadron) 20 mg STK-MED ONCE .ROUTE ; Start at 08:26; Stop 06/10/18 at 08:27; Status DC Ondansetron HCl (Zofran) 4 mg STK-MED ONCE .ROUTE ; Start 06/10/18 at 08:26; Stop 06/10/18 at 08:27; Status DC Morphine Sulfate (Morphine Sulfate) 10 mg STK-MED ONCE .ROUTE ; Start 06/10/18 at 08:44; Stop 06/10/18 at 08:45; Status DC Morphine Sulfate (Morphine Sulfate) 2 mg STK-MED ONCE .ROUTE ; Start 06/10/18 at 10:05; Stop 06/10/18 at 10:06; Status DC Morphine Sulfate (Morphine Sulfate) 2 mg 1X ONCE IV Last administered on at 10:10; Start 06/10/18 at 10:15; Stop 06/10/18 at 10:16; Status DC Hydromorphone HCl (Dilaudid) 1 mg PRN Q4HRS PRN IVP PAIN Last administered on at 12:11; Start 06/10/18 at 12:00 Triamterene/HCTZ (Maxzide 37.5/ 25mg) 2 tab DAILY PO Last administered on at 10:14; Start 06/11/18 at 11:00 Potassium Chloride (Klor-Con) 40 meq DAILYWBKFT PO ; Start 06/13/18 at 08:00; Stop 06/13/18 at 08:00; Status DC Potassium Chloride (Klor-Con) 40 meq DAILYWBKFT PO Last administered on at 10:45; Start 06/12/18 at 10:30 Active Scripts Active Reported Triamterene-Hctz 75-50 Mg Tab (Triamterene/Hydrochlorothiazid) 1 Each Tablet 1 Tab PO DAILY Hydromorphone Hcl 4 Mg Tablet 4 Mg PO Q4HRS PRN Eliquis (Apixaban) 2.5 Mg Tablet 2.5 Mg PO BID Coreg (Carvedilol) 6.25 Mg Tablet 1 Tab PO BID Potassium Chloride 10 Meq Capsule.er 10 Meq PO UD Zetia (Ezetimibe) 10 Mg Tablet 1 Tab PO DAILY AM Vitamin D2 (Ergocalciferol (Vitamin D2)) 50,000 Unit Capsule 50,000 Unit PO QSU Lexapro (Escitalopram Oxalate) 20 Mg Tablet 40 Mg PO DAILY Trazodone Hcl 100 Mg Tablet 1 Tab PO QHS Ranitidine Hcl 300 Mg Capsule 1 Cap PO HS Cymbalta (Duloxetine Hcl) 60 Mg Capsule.dr 60 Mg PO BID Vitals/I & O Vital Sign - Last 24 Hours 06/12/18 06/12/18 06/12/18 06/12/18 10:47 15:00 16:46 19:00 Temp 98.1 98.0 97.9 98.1 98.0 97.9 Pulse 52 67 67 62 Resp 16 16 18 B/P (MAP) 136/64 (88) 136/61 (86) 136/61 104/46 (65) Pulse Ox 96 97 94 O2 Delivery Room Air Room Air Room Air 06/12/18 06/12/18 06/13/18 06/13/18 20:15 22:41 03:00 07:00 Temp 97.7 98.6 98.3 97.7 98.6 98.3 Pulse 52 57 61 Resp 18 18 18 B/P (MAP) 104/53 (70) 145/72 (96) 156/68 (97) Pulse Ox 93 99 98 O2 Delivery Room Air Room Air Room Air Room Air ZACHARIAH LOPEZ MD Jun 13, 2018 08:59
[2018-06-13] MEDS: EZETIMIBE 10 MG TABLET. PO SCH (09:16)
[2018-06-13] MEDS: TRIAMTERENE/HCTZ 37.5/25MG TABLET. PO SCH (09:16)
[2018-06-13] MEDS: DULoxetine HCL 30 MG CAPSULE.DR PO SCH ×2 (09:18→21:46)
[2018-06-13] MEDS: POTASSIUM CHLORIDE 10 MEQ TABLET.ER. PO SCH (09:18)
[2018-06-13] MEDS: CITALOPRAM 20 MG TABLET. PO SCH (09:19)
[2018-06-13] MEDS: LACTOBACILLUS RHAMNOSUS GG 1 CAPSULE. PO SCH ×2 (09:20→21:48)
[2018-06-13] MEDS: CARVEDILOL 6.25 MG TABLET. PO SCH ×2 (09:20→17:33)
[2018-06-13 09:59] LABS: GFR 55.1; MAGNESIUM 1.6 mg/dL (1.8-2.4); POTASSIUM 3.8 mmol/L (3.5-5.1)
[2018-06-13 11:00] VITALS: BP 153/59
--- NOTE | 2018-06-13 11:15 | PDOC ---
ORTHO PROGRESS NOTES Subjective Patient with no new complaints of pain. Post-op Day: 3 Procedure Exploration and debridement of right LE with wound vac placement Vitals Vital Signs Date Time Temp Pulse Resp B/P (MAP) Pulse Ox O2 Delivery O2 Flow Rate FiO2 06/13/18 09:20 61 156/68 06/13/18 07:00 98.3 18 98 Room Air 98.3 Labs Laboratory Tests Test 06/12/18 03:00 06/13/18 09:25 White Blood Count 7.6 x10^3/uL (4.0-11.0) Red Blood Count 4.09 x10^6/uL (3.50-5.40) Hemoglobin 11.2 g/dL (12.0-15.5) Hematocrit 35.3 % (36.0-47.0) Mean Corpuscular Volume 86 fL (79-100) Mean Corpuscular Hemoglobin 28 pg (25-35) Mean Corpuscular Hemoglobin Concent 32 g/dL (31-37) Red Cell Distribution Width 14.1 % (11.5-14.5) Platelet Count 260 x10^3/uL (140-400) Neutrophils (%) (Auto) 62 % (31-73) Lymphocytes (%) (Auto) 32 % (24-48) Monocytes (%) (Auto) 4 % (0-9) Eosinophils (%) (Auto) 2 % (0-3) Basophils (%) (Auto) 1 % (0-3) Neutrophils # (Auto) 4.7 x10^3uL (1.8-7.7) Lymphocytes # (Auto) 2.4 x10^3/uL (1.0-4.8) Monocytes # (Auto) 0.3 x10^3/uL (0.0-1.1) Eosinophils # (Auto) 0.1 x10^3/uL (0.0-0.7) Basophils # (Auto) 0.0 x10^3/uL (0.0-0.2) Sodium Level 141 mmol/L (136-145) 141 mmol/L (136-145) Potassium Level 3.4 mmol/L (3.5-5.1) 3.8 mmol/L (3.5-5.1) Chloride Level 102 mmol/L (98-107) 103 mmol/L (98-107) Carbon Dioxide Level 35 mmol/L (21-32) 35 mmol/L (21-32) Anion Gap 4 (6-14) 3 (6-14) Blood Urea Nitrogen 21 mg/dL (7-20) 15 mg/dL (7-20) Creatinine 1.0 mg/dL (0.6-1.0) 1.0 mg/dL (0.6-1.0) Estimated GFR (Cockcroft-Gault) 55.1 55.1 BUN/Creatinine Ratio 21 (6-20) Glucose Level 95 mg/dL (70-99) 110 mg/dL (70-99) Calcium Level 8.6 mg/dL (8.5-10.1) 9.0 mg/dL (8.5-10.1) Total Bilirubin 0.3 mg/dL (0.2-1.0) Aspartate Amino Transf (AST/SGOT) 12 U/L (15-37) Alanine Aminotransferase (ALT/SGPT) 15 U/L (14-59) Alkaline Phosphatase 51 U/L (46-116) Total Protein 6.1 g/dL (6.4-8.2) Albumin 2.8 g/dL (3.4-5.0) Albumin/Globulin Ratio 0.8 (1.0-1.7) Magnesium Level 1.6 mg/dL (1.8-2.4) Laboratory Tests Test 06/13/18 09:25 Sodium Level 141 mmol/L (136-145) Potassium Level 3.8 mmol/L (3.5-5.1) Chloride Level 103 mmol/L (98-107) Carbon Dioxide Level 35 mmol/L (21-32) Anion Gap 3 (6-14) Blood Urea Nitrogen 15 mg/dL (7-20) Creatinine 1.0 mg/dL (0.6-1.0) Estimated GFR (Cockcroft-Gault) 55.1 Glucose Level 110 mg/dL (70-99) Calcium Level 9.0 mg/dL (8.5-10.1) Magnesium Level 1.6 mg/dL (1.8-2.4) Notes Awake and alert Assessment and Plan POD# 3 S/P R LE exploration and debridement and wound vac placement wound vac in place neuro and motor intact distally awaiting transfer to SNU ID for antibiotics EULA PERRY APRN Jun 13, 2018 11:15
--- NOTE | 2018-06-13 12:11 | PDOC ---
Infectious Disease Note Subjective Subjective Wt bearing as tolerated Knee feeling better, still some swollen, pain controlled. Vac has yet to be changed Denies F/C/S/N/V/D/aches Vital Sign Vital Signs Vital Signs Date Time Temp Pulse Resp B/P (MAP) Pulse Ox O2 Delivery O2 Flow Rate FiO2 06/13/18 11:00 97.7 61 18 153/59 (90) 99 Room Air 97.7 Physical Exam PHYSICAL EXAM GENERAL: Propped up in bed, alert, smiling, eating HEENT: Oral cavity clear HEART: Regular rate and rhythm. LUNGS: Clear to auscultation bilaterally. ABDOMEN: Obese, soft, NT EXTREMITIES: Right knee wound vac in place along with immobilizer. 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 cultures from 04/20, 05/17, 06/08 no growth. 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 Begin po Cipro and Zyvox reviewed indications and risks of Cipro ie tendon complications and Aortic aneurysm. Explained indication for joint infection. She and agree and questions answered Cultures NGTD Monitor labs PT/OT - has been ambulating in jim D/w Dr. De La Cruz all cults neg and he does not feel she needs IV abx She needs wound vac changes clarification and monitor swelling. D/w D/c 06/14 if stable MARIA INES ZARAGOZA MD Jun 13, 2018 12:11
--- NOTE | 2018-06-13 12:37 | NUR ---
SW following. Discussed with RN, pt has been accepted at [facility] for SNU. SW to fax wound care and wound vac information. Hoping for discharge to [place] tomorrow (06/14/18). RN notified.
[2018-06-13] MEDS ORDERED: POTASSIUM CHLORIDE 20 MEQ TABLET.ER. PO ONE (14:30)
[2018-06-13 15:00] VITALS: BP 120/57
[2018-06-13] MEDS ORDERED: MAGNESIUM SULFATE 4GM 100 ML IV ONE (15:00)
[2018-06-13] MEDS: LINEZOLID 600 MG TABLET PO SCH ×2 (15:28→21:47)
[2018-06-13] MEDS: CIPROFLOXACIN HCL 250 MG TABLET. PO SCH ×2 (15:28→21:48)
--- NOTE | 2018-06-13 16:16 | NUR ---
SW following. Pt may or may not require a wound vac at discharge. Brunilda ([phone]) at [facility], wanting to know if she should order a wound vac and requesting information about wound care. MATTHEW had spoken with [facility] wound care nurse, [facility] advised she needs to take a look to determine if pt would need the wound vac or not. MATTHEW spoke with Jurgen (wound care), who advised they would have more information tomorrow morning (06/14/18). MATTHEW will continue to follow.
[2018-06-13 19:00] VITALS: BP 137/60
[2018-06-13] MEDS: HYDROmorphone 4 MG TABLET PO PRN (19:35)
[2018-06-13] MEDS: FAMOTIDINE 20 MG TABLET. PO SCH (21:47)
[2018-06-13] MEDS: traZODone 100 MG TABLET. PO SCH (21:48)
[2018-06-13 23:00] VITALS: BP 105/42
[2018-06-14 03:00] VITALS: BP 118/59
[2018-06-14 07:35] VITALS: BP 140/60
--- NOTE | 2018-06-14 08:29 | SNU/HH DC ---
DISCHARGE ORDERS DISCHARGE INFORMATION: DISCHARGE DATE: Jun 14, 2018 FINAL DIAGNOSIS Status post irrigation debridement of right knee wound drainage following extensor mechanism reconstruction CONDITION ON DISCHARGE: Stable CODE STATUS: Code Status: Full LONG-TERM: SNF STAY <30 DAYS: Yes HOSPICE: HOSPICE: No HOSPICE EVAL & TREAT: No LTAC: ADMIT TO LTAC: No POST DISCHARGE ORDERS: ACTIVITY ORDERS: Progressive ambulation, Other, see below (weightbearing as tolerated only with brace in extension, no bending of right knee) WEIGHT BEARING STATUS: As tolerated BATHING ORDERS: Shower-keep dressing dry, No Tub Bath until see DIET AFTER DISCHARGE: RAH WOUND/INCISION CARE: Ice to area for comfort, Do not change dressing (maintain intact wound VAC call if any redness or loss of suction) CHECKS AFTER DISCHARGE: CHECKS AFTER DISCHARGE: Check your Temp as needed FOLLOW-UP: PHYSICIAN FOLLOW-UP: Dr. De La Cruz 2 weeks TREATMENT/EQUIPMENT ORDERS: ADAPTIVE EQUIPMENT NEEDED: None, Front wheeled walker Physical Therapy For: Evalulation/Treatment (weightbearing as tolerated with brace and extension only may do leg lifts and ankle pumps, no knee motion) Occupational Therapy For: Evaluation/Treatment (for ADLs and transfers etc.) DISCHARGE MEDICATIONS: Home Meds Reported Medications Triamterene/Hydrochlorothiazid (TRIAMTERENE-HCTZ 75-50 MG TAB) 1 Each Tablet, 1 TAB PO DAILY for htn, #30 TAB 5 Refills 06/11/18 Hydromorphone Hcl (HYDROMORPHONE HCL) 4 Mg Tablet, 4 MG PO Q4HRS PRN for PAIN, # 80 TAB 0 Refills 05/20/18 Apixaban (ELIQUIS) 2.5 Mg Tablet, 2.5 MG PO BID for blood thinner, TAB 05/20/18 Carvedilol (COREG ) 6.25 Mg Tablet, 1 TAB PO BID, #180 TAB 3 Refills 04/13/17 Potassium Chloride (POTASSIUM CHLORIDE) 10 Meq Capsule.er, 10 MEQ PO UD, TAB.SR 04/13/17 Ezetimibe (ZETIA) 10 Mg Tablet, 1 TAB PO DAILY AM, #30 TAB 5 Refills 04/13/17 Ergocalciferol (Vitamin D2) (VITAMIN D2) 50,000 Unit Capsule, 62621 UNIT PO QSU for supplement , CAP 08/11/16 Escitalopram Oxalate (LEXAPRO) 20 Mg Tablet, 40 MG PO DAILY for ANTI-DEPRESSANT , TAB 0 Refills 08/11/16 Trazodone Hcl (TRAZODONE HCL) 100 Mg Tablet, 1 TAB PO QHS, #30 TAB 02/21/16 Ranitidine Hcl (RANITIDINE HCL) 300 Mg Capsule, 1 CAP PO HS, #30 CAP 3 Refills 10/17/14 Duloxetine Hcl (CYMBALTA) 60 Mg Capsule.dr, 60 MG PO BID for depression, CAP 10/05/13 LESLIE DE LA CRUZ MD Jun 14, 2018 08:29
--- NOTE | 2018-06-14 08:43 | PDOC ---
Infectious Disease Note Subjective Subjective didn't sleep well but doesnt feel ill Knee feeling some better, still some swollen, pain controlled. Denies F/C/S/N/V/D/aches ROS ROS o/w neg Vital Sign Vital Signs Vital Signs Date Time Temp Pulse Resp B/P (MAP) Pulse Ox O2 Delivery O2 Flow Rate FiO2 06/14/18 07:35 97.3 69 20 140/60 (86) 97 Room Air 97.3 Physical Exam PHYSICAL EXAM GENERAL: Propped up in bed, alert, smiling HEENT: Oral cavity clear HEART: Regular rate and rhythm. LUNGS: Clear to auscultation bilaterally. ABDOMEN: Obese, soft, NT EXTREMITIES: Right knee wound very clean. Min opening of incision. No erythema/warmth and mild edema. 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 cultures from 04/20, 05/17, 06/08 no growth. 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 Explained indication for joint infection. She and agree and questions answered Cultures NGTD D/w Dr. De La Cruz all cults neg and he does not feel she needs IV abx 06/13 D/w Wound care team and nursing this am Can F/u 2 weeks in ID office [phone] MARIA INES ZARAGOZA MD Jun 14, 2018 08:43
[2018-06-14] MEDS: HYDROmorphone 2 MG/ML VIAL IVP PRN (08:49)
[2018-06-14] MEDS: CITALOPRAM 20 MG TABLET. PO SCH (08:52)
--- NOTE | 2018-06-14 08:55 | NUR ---
Wound Care Pt seen this morning prior to discharge, with orders from Dr. De La Cruz to evaluate R knee and either place a Prevena Plus or continue with an incisional "Prevena-style" NPWT at facility. R knee dressing removed, incision line cleaned and photographed. Incision line is well-approximated, with a small disruption of approx. 1 cm in the central incision, no depth greater than 0.1 cm noted. A small piece of Biopad collagen layed over this area, then a contact layer placed over entire incision line, then 1 piece of silver foam applied over the contact layer, the entire length of the incision, track pad placed centrally, between knee brace straps. Prevena Plus motor and tubing connected to dressing, vac with strong seal at -125 mmHg continuous suction, pt tolerated well. Dr. Amos at bedside to view knee. Spoke with Dr. De La Cruz, who was in surgery at the time of dressing change, orders received to keep Prevena Plus in place for 7 days, then for pt to return to Dr. De La Cruz's office for removal and assessment on 06/21/18. Called and spoke with RADHA Gonzales, POC discussed re: f/u, Christian v/u. Consignment vac taken to [facility] for cleaning.
[2018-06-14] MEDS: POTASSIUM CHLORIDE 10 MEQ TABLET.ER. PO SCH (08:56)
[2018-06-14] MEDS: TRIAMTERENE/HCTZ 37.5/25MG TABLET. PO SCH (08:58)
[2018-06-14] MEDS: EZETIMIBE 10 MG TABLET. PO SCH (08:59)
[2018-06-14] MEDS: DULoxetine HCL 30 MG CAPSULE.DR PO SCH (08:59)
[2018-06-14] MEDS: LINEZOLID 600 MG TABLET PO SCH (09:00)
[2018-06-14] MEDS: LACTOBACILLUS RHAMNOSUS GG 1 CAPSULE. PO SCH (09:01)
[2018-06-14] MEDS: CARVEDILOL 6.25 MG TABLET. PO SCH (09:01)
[2018-06-14] MEDS: CIPROFLOXACIN HCL 250 MG TABLET. PO SCH (09:01)
[2018-06-14] MEDS ORDERED: CIPR250T30 PO (09:19)
[2018-06-14] MEDS ORDERED: LINE600T PO (09:19)
--- NOTE | 2018-06-14 09:21 | PDOC ---
PROGRESS NOTES Chief Complaint Chief Complaint right knee pain and swelling and drainage GEn weakness - PT recs SNU chronic back pain and neuropathic pain obesity, BMI 37 hyperlipidemia, familiar, goes to lipid clinic hypokalemia, improved, CKD 2, s/p partial nephrectomy depression, insomnia History of Present Illness History of Present Illness PT recs SNU, she came from home with spouse labs ok, no fever. K 3.4 yesterday, labs pending She has less swelling today, but more weakness. Some SOB, no CP. PLAN: Labs this morning SW SNU screen (with wound vac?) INc KCL from 10 to 40 PO qD COnt the rest of orders otherwise A/P: Hypoxia - significant respiratory history for CASTRO previously on QHS CPAP. I would reinitiate this and recommend she return to sleep medicine physician. She is rather opioid tolerant and has not has problems with anesthesia previously, so likely her CASTRO needs further treatment. Will have her back on CPAP QHS Repeat right total knee arthroplasty, status post explantation, debridement and insertion of antibiotic spacer on 04/16/2017 - now with repeat surgery, rehab plans per ortho Hypertension - cont meds, restart Maxzide today Hypercholesterolemia - cont statin Obesity - counseled on f/u with bariatric surgery Gastroesophageal reflux - cont PPI, may need liquid carafate if this worsens again Lap band in 05/2009 - needs f/u with bariatric after her weight gain Renal cancer s/p left nephrectomy - had good f/u Depression - may be a better candidate for wellbutrin or effexor with her h/o weight gain, though anxiety could worsen, could use buspar as well. We have discussed in depth and will use trazodone to sleep tonight FEN - ADAT PPX - rec lovenox unless she will be ambulating soon FULL CODE SNF today - 6 days zyvox and cipro Thank you for this interesting consultation, we will continue to follow her while in house, call with any questions. [phone] or page overhead, [facility] as well History of Present Illness History of Present Illness Venecia is a 67-year-old female w/ PMHx hypertension, hypercholesterolemia, obesity, gastroesophageal reflux, lap band in 05/2009, CASTRO previously on CPAP, renal cancer s/p left nephrectomy, arthritis, depression, anxiety, and history of MRSA who previously had history of a right total knee arthroplasty in 2016 followed by a traumatic wound dehiscence following total knee arthroplasty and underwent explantation and revision for infection and subsequently had a periprosthetic fracture. 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 On 05/17/18 underwent extensive patellar reconstruction with allograft Achilles tendon and calcaneus bone block and after surgery experienced hypoxic respiratory failure that required BIPAP overnight and we are requested to assist in her care. On further review she began antidepressants and cycled through a number of medications last year and with her knee complications and the antidepressants she has gained 30-60 pounds and has cycled through losing weight and gaining it back. Has not had any lap band adjustments during this time. She notes that she did have CPAP nightly at home prior to her Lap band in 2009, but has since not required it, but her notes over the past month and half where she did gain more weight (30 pounds) that she has been snoring more and gasping at night. 05/19: Overnight she did not sleep well, is requesting a sleep aid. Her pain is reasonably controlled. She feels wiped out after PT. Has good spirits. IS bedside. No SOB or CP. passing flatus. No BM Still pretty sleepy today. Trazodone helped and blood pressure better with maxzide Plan discharge to rehabilitation facility today Eliquis 2.5mg twice a day plan 2 months Vitals Vitals Vital Signs Date Time Temp Pulse Resp B/P (MAP) Pulse Ox O2 Delivery O2 Flow Rate FiO2 06/14/18 09:01 69 140/60 06/14/18 08:49 Room Air 06/14/18 07:35 97.3 20 97 97.3 Physical Exam Physical Exam GENERAL: Propped up in bed, alert, smiling HEENT: Oral cavity clear HEART: Regular rate and rhythm. LUNGS: Clear to auscultation bilaterally. ABDOMEN: Obese, soft, NT EXTREMITIES: Right knee wound very clean. Min opening of incision. No erythema/warmth and mild edema. No warmth ESTIMATOR JEWELRY: Alert and responds appropriately SKIN: No rash PIV General: Alert, Oriented X3, Cooperative, No acute distress Heart: Regular rate, Gallops Lungs: Clear Abdomen: Soft Extremities: No cyanosis Labs LABS Laboratory Tests Test 06/13/18 09:25 Sodium Level 141 mmol/L (136-145) Potassium Level 3.8 mmol/L (3.5-5.1) Chloride Level 103 mmol/L (98-107) Carbon Dioxide Level 35 mmol/L (21-32) Anion Gap 3 (6-14) Blood Urea Nitrogen 15 mg/dL (7-20) Creatinine 1.0 mg/dL (0.6-1.0) Estimated GFR (Cockcroft-Gault) 55.1 Glucose Level 110 mg/dL (70-99) Calcium Level 9.0 mg/dL (8.5-10.1) Magnesium Level 1.6 mg/dL (1.8-2.4) Comment Review of Relevant I have reviewed the following items dieter (where applicable) has been applied. Labs Laboratory Tests Test 06/13/18 09:25 Sodium Level 141 mmol/L (136-145) Potassium Level 3.8 mmol/L (3.5-5.1) Chloride Level 103 mmol/L (98-107) Carbon Dioxide Level 35 mmol/L (21-32) Anion Gap 3 (6-14) Blood Urea Nitrogen 15 mg/dL (7-20) Creatinine 1.0 mg/dL (0.6-1.0) Estimated GFR (Cockcroft-Gault) 55.1 Glucose Level 110 mg/dL (70-99) Calcium Level 9.0 mg/dL (8.5-10.1) Magnesium Level 1.6 mg/dL (1.8-2.4) Laboratory Tests Test 06/13/18 09:25 Sodium Level 141 mmol/L (136-145) Potassium Level 3.8 mmol/L (3.5-5.1) Chloride Level 103 mmol/L (98-107) Carbon Dioxide Level 35 mmol/L (21-32) Anion Gap 3 (6-14) Blood Urea Nitrogen 15 mg/dL (7-20) Creatinine 1.0 mg/dL (0.6-1.0) Estimated GFR (Cockcroft-Gault) 55.1 Glucose Level 110 mg/dL (70-99) Calcium Level 9.0 mg/dL (8.5-10.1) Magnesium Level 1.6 mg/dL (1.8-2.4) Medications Current Medications Magnesium Hydroxide (Milk Of Magnesia) 2,400 mg 1X PRN PRN PO CONSTIPATION; Start 06/09/18 at 06:00; Stop 06/10/18 at 06:00; Status DC Calcium Carbonate/ Glycine (Tums) 500 mg PRN QID PRN PO INDIGESTION; Start at 17:45 Sodium Chloride (Normal Saline Flush) 10 ml QSHIFT PRN IV AFTER MEDS AND BLOOD DRAWS; Start 06/08/18 at 17:45 Ondansetron HCl (Zofran) 4 mg Q6HRS IV Last administered on 06/09/18at 06:29; Start 06/08/18 at 18:00; Stop 06/09/18 at 12:01; Status DC Ondansetron HCl (Zofran Odt) 4 mg Q6HRS PO ; Start 06/08/18 at 18:00; Stop 06/09 at 12:01; Status DC Ondansetron HCl (Zofran) 4 mg PRN Q6HRS PRN IV Nausea/vomiting, 1st choice Last administered on 06/10/18at 17:30; Start 06/09/18 at 12:00 Ondansetron HCl (Zofran Odt) 4 mg PRN Q6HRS PRN PO Nausea/vomiting, 1st choice Last administered on 06/11/18at 09:15; Start 06/09/18 at 12:00 Insulin Human Lispro (HumaLOG) 0-5 UNITS TIDWMEALS SQ ; Start 06/09/18 at 08:00 ; Stop 06/09/18 at 09:25; Status DC Dextrose (Dextrose 50%-Water Syringe) 12.5 gm PRN Q15MIN PRN IV SEE COMMENTS; Start 06/08/18 at 17:45; Stop 06/09/18 at 09:25; Status DC Hydromorphone HCl (Dilaudid) 4 mg PRN Q4HRS PRN PO PAIN Last administered on 06/13/18at 19:35; Start 06/08/18 at 17:45 Vancomycin HCl (Vanco Per Pharmacy) 1 each PRN DAILY PRN MC SEE COMMENTS; Start 06/08/18 at 17:45; Stop 06/08/18 at 19:10; Status DC Vancomycin HCl 2 gm/Sodium Chloride 500 ml @ 250 mls/hr 1X ONCE IV ; Start at 18:00; Stop 06/08/18 at 19:10; Status DC Potassium Chloride (Klor-Con) 40 meq 1X ONCE PO Last administered on at 20:36; Start 06/08/18 at 19:30; Stop 06/08/18 at 19:35; Status DC Daptomycin 600 mg/ Sodium Chloride 50 ml @ 100 mls/hr Q24H IV Last administered on 06/12/18at 21:13; Start 06/08/18 at 20:30; Stop 06/13/18 at 12:10 ; Status DC Meropenem 500 mg/ Sodium Chloride 50 ml @ 100 mls/hr Q6HRS IV Last administered on 06/13/18at 05:25; Start 06/08/18 at 20:00; Stop 06/13/18 at 12:10; Status DC Carvedilol (Coreg) 6.25 mg BIDWMEALS PO Last administered on 06/14/18at 09:01; Start 06/09/18 at 08:00 Ergocalciferol (Vitamin D2) 50,000 unit QSU PO Last administered on 06/12/18at 16:46; Start 06/12/18 at 16:00 EZETIMIBE (Zetia) 10 mg DAILY PO Last administered on 06/14/18 08:59; Start at 09:00 Potassium Chloride (Klor-Con) 10 meq DAILYWBKFT PO Last administered on at 08:54; Start 06/09/18 at 08:00; Stop 06/12/18 at 08:59; Status DC Trazodone HCl (Desyrel) 100 mg QHS PO Last administered on 06/13/18at 21:48; Start 06/08/18 at 22:45 Duloxetine HCl (Cymbalta) 60 mg BID PO Last administered on 06/14/18 08:59; Start 06/08/18 at 22:45 Citalopram Hydrobromide (CeleXA) 80 mg DAILY PO Last administered on 06/14/18 08:52; Start 06/09/18 at 09:00 Hydromorphone HCl (Dilaudid) 4 mg PRN Q4HRS PRN PO PAIN; Start 06/08/18 at 22: 45; Stop 06/09/18 at 09:25; Status DC Famotidine (Pepcid) 40 mg HS PO Last administered on 06/13/18at 21:47; Start at 22:45 Lactobacillus Rhamnosus (Culturelle) 1 cap BID PO Last administered on at 09:01; Start 06/09/18 at 21:00 Ringer's Solution 1,000 ml @ 30 mls/hr Q24H IV ; Start 06/10/18 at 07:00; Stop 06/10/18 at 18:59; Status DC Prochlorperazine Edisylate (Compazine) 5 mg PACU PRN PRN IV NAUSEA, MRX1; Start 06/10/18 at 07:00; Stop 06/11/18 at 06:59; Status DC Sevoflurane (Ultane) 60 ml STK-MED ONCE IH ; Start 06/10/18 at 07:56; Stop 06/10 at 07:57; Status DC Propofol 20 ml @ As Directed STK-MED ONCE IV ; Start 06/10/18 at 07:57; Stop at 07:58; Status DC Lidocaine HCl (Lidocaine Pf 2% Vial) 5 ml STK-MED ONCE .ROUTE ; Start 06/10/18 at 07:57; Stop 06/10/18 at 07:58; Status DC Famotidine (Pepcid Vial) 20 mg STK-MED ONCE .ROUTE ; Start 06/10/18 at 07:59; Stop 06/10/18 at 08:00; Status DC Ketorolac Tromethamine (Toradol For Or Only) 30 mg STK-MED ONCE INJ ; Start at 08:26; Stop 06/10/18 at 08:27; Status DC Dexamethasone Sodium Phosphate (Decadron) 20 mg STK-MED ONCE .ROUTE ; Start at 08:26; Stop 06/10/18 at 08:27; Status DC Ondansetron HCl (Zofran) 4 mg STK-MED ONCE .ROUTE ; Start 06/10/18 at 08:26; Stop 06/10/18 at 08:27; Status DC Morphine Sulfate (Morphine Sulfate) 10 mg STK-MED ONCE .ROUTE ; Start 06/10/18 at 08:44; Stop 06/10/18 at 08:45; Status DC Morphine Sulfate (Morphine Sulfate) 2 mg STK-MED ONCE .ROUTE ; Start 06/10/18 at 10:05; Stop 06/10/18 at 10:06; Status DC Morphine Sulfate (Morphine Sulfate) 2 mg 1X ONCE IV Last administered on at 10:10; Start 06/10/18 at 10:15; Stop 06/10/18 at 10:16; Status DC Hydromorphone HCl (Dilaudid) 1 mg PRN Q4HRS PRN IVP PAIN Last administered on 08:49; Start 06/10/18 at 12:00 Triamterene/HCTZ (Maxzide 37.5/ 25mg) 2 tab DAILY PO Last administered on 08:58; Start 06/11/18 at 11:00 Potassium Chloride (Klor-Con) 40 meq DAILYWBKFT PO ; Start 06/13/18 at 08:00; Stop 06/13/18 at 08:00; Status DC Potassium Chloride (Klor-Con) 40 meq DAILYWBKFT PO Last administered on at 08:56; Start 06/12/18 at 10:30 Ciprofloxacin (Cipro) 500 mg BID PO Last administered on 06/14/18at 09:01; Start 06/13/18 at 13:00 Linezolid (Zyvox) 600 mg BID PO Last administered on 06/14/18at 09:00; Start 06/13 at 13:00 Magnesium Sulfate/ Dextrose 100 ml @ 25 mls/hr 1X ONCE IV Last administered on 06/13/18at 15:21; Start 06/13/18 at 15:00; Stop 06/13/18 at 18:59; Status DC Potassium Chloride (Klor-Con) 20 meq 1X ONCE PO Last administered on 06/13/18at 15:30; Start 06/13/18 at 14:30; Stop 06/13/18 at 14:31; Status DC Active Scripts Active Zyvox (Linezolid) 600 Mg Tablet 600 Mg PO BID 6 Days Cipro (Ciprofloxacin Hcl) 250 Mg Tablet 500 Mg PO BID 6 Days Reported Triamterene-Hctz 75-50 Mg Tab (Triamterene/Hydrochlorothiazid) 1 Each Tablet 1 Tab PO DAILY Hydromorphone Hcl 4 Mg Tablet 4 Mg PO Q4HRS PRN Eliquis (Apixaban) 2.5 Mg Tablet 2.5 Mg PO BID Coreg (Carvedilol) 6.25 Mg Tablet 1 Tab PO BID Potassium Chloride 10 Meq Capsule.er 10 Meq PO UD Zetia (Ezetimibe) 10 Mg Tablet 1 Tab PO DAILY AM Vitamin D2 (Ergocalciferol (Vitamin D2)) 50,000 Unit Capsule 50,000 Unit PO QSU Lexapro (Escitalopram Oxalate) 20 Mg Tablet 40 Mg PO DAILY Trazodone Hcl 100 Mg Tablet 1 Tab PO QHS Ranitidine Hcl 300 Mg Capsule 1 Cap PO HS Cymbalta (Duloxetine Hcl) 60 Mg Capsule.dr 60 Mg PO BID Vitals/I & O Vital Sign - Last 24 Hours 06/13/18 06/13/18 06/13/18 06/13/18 11:00 15:00 17:33 19:00 Temp 97.7 98.3 98.2 97.7 98.3 98.2 Pulse 61 62 62 64 Resp 18 18 18 B/P (MAP) 153/59 (90) 120/57 (78) 120/57 137/60 (85) Pulse Ox 99 98 100 O2 Delivery Room Air Room Air Room Air 06/13/18 06/13/18 06/14/18 06/14/18 20:00 23:00 03:00 07:35 Temp 97.7 97.7 97.3 97.7 97.7 97.3 Pulse 52 54 69 Resp 18 18 20 B/P (MAP) 105/42 (63) 118/59 (78) 140/60 (86) Pulse Ox 93 97 97 O2 Delivery Room Air Room Air Room Air Room Air 06/14/18 06/14/18 08:49 09:01 Pulse 69 B/P (MAP) 140/60 O2 Delivery Room Air Intake and Output 06/13/18 06/13/18 06/14/18 14:59 22:59 06:59 Intake Total 830 ml 325 ml Output Total 600 ml Balance 830 ml 325 ml -600 ml ZACHARIAH LOPEZ MD Jun 14, 2018 09:20
[2018-06-14 11:06] VITALS: BP 130/72
--- NOTE | 2018-06-14 12:16 | NUR ---
SW following. Pt will discharge to [facility] between [id number]. Pt choice and rights letter signed and placed on chart. SW left voicemail for pt's son, Timothy to advise of discharge. No further SW needs. RN notified.
[2018-06-14] MEDS: ONDANSETRON PF 4 MG/2 ML VIAL. IV PRN (12:23)
--- NOTE | 2018-06-14 15:56 | NUR ---
Pt was discharged to [facility] at 1400 today in stable condition with all personal belongings. Report called in to Rosy GARCIA, packet given to facility transportation personnel, all pertinent information faxed to [facility]. Pt was escorted via and accompanied via staff and transportation to the main exit where she was driven by [employer] van to [facility]
--- NOTE | 2018-06-14 20:23 | DS ---
DATE OF DISCHARGE: 06/14/2018 PRINCIPAL DIAGNOSIS: Right knee wound drainage, status post extensive extensor mechanism reconstruction procedure. PROCEDURES: Include an irrigation and debridement of right knee with application of wound VAC. LOCATION: custodial facility. FOLLOWUP: Dr. De La Cruz in 1 week. ACTIVITY: Weightbearing as tolerated. Knee brace locked in extension, may do leg lifts and ankle pumps, no knee motion. Maintain wound VAC in place for 1 week. Call if any excessive drainage, redness, fever, chills, uncontrolled pain or other problems. BRIEF DESCRIPTION OF HOSPITAL COURSE: The patient underwent an extensive extensor mechanism reconstruction procedure prior and went to a rehabilitation facility and developed some drainage, which was not reported for a period of several days. She had called to report the problem when she was discharged home and was immediately brought into the clinic and brought into the hospital with concern that she had had extensive reconstruction with allograft tissue, particularly given her history very susceptible to infection. She was brought into the hospital. Cultures were obtained and she underwent irrigation, debridement and preoperative and postoperative antibiotics. A wound VAC was placed following her procedure and she ambulated with the knee as directed, locked in extension. I did some leg lifts and ankle motion. She remained medically stable throughout the process. Her cultures as at the time of discharge were final negative with no evidence of any growth on aerobic or anaerobic cultures. She was not on antibiotics at that time. She was discharged on some ongoing antibiotics under direction of Infectious Disease just due to her risk factors and we will reevaluate that based on her ongoing clinical progress and follow up. LESLIE DE LA CRUZ MD DR: VINCE/sherry JOB#: [id number] / [id number] BLANCA Bermudez MD
== END 2018-06-14 14:00 | DRG 907 ==
LOC: 4 NORTH 17:22
PROVIDERS: ADMIT Orthopaedic Surgery; ATTEND Orthopaedic Surgery
PROC: 0MBN0ZZ Excision of Right Knee Bursa and Ligament, Open Approach (ICD-10-PCS; principal; 2018-06-10 08:00)
DX: T81.89XA Other complications of procedures, not elsewhere classified, initial encounter (principal); E43 Unspecified severe protein-calorie malnutrition; E87.6 Hypokalemia; N18.2 Chronic kidney disease, stage 2 (mild); I12.9 Hypertensive chronic kidney disease with stage 1 through stage 4 chronic kidney disease, or unspecified chronic kidney disease; E11.22 Type 2 diabetes mellitus with diabetic chronic kidney disease; E66.9 Obesity, unspecified; E78.5 Hyperlipidemia, unspecified; F32.9 Major depressive disorder, single episode, unspecified; F41.9 Anxiety disorder, unspecified; G47.00 Insomnia, unspecified; G47.33 Obstructive sleep apnea (adult) (pediatric); M19.90 Unspecified osteoarthritis, unspecified site; G89.29 Other chronic pain; K21.9 Gastro-esophageal reflux disease without esophagitis; E78.00 Pure hypercholesterolemia, unspecified; F17.200 Nicotine dependence, unspecified, uncomplicated; Z96.651 Presence of right artificial knee joint; Y83.4 Other reconstructive surgery as the cause of abnormal reaction of the patient, or of later complication, without mention of misadventure at the time of the procedure; Y92.9 Unspecified place or not applicable; Z90.5 Acquired absence of kidney; Z90.710 Acquired absence of both cervix and uterus; Z98.84 Bariatric surgery status; Z88.1 Allergy status to other antibiotic agents; Z86.711 Personal history of pulmonary embolism; Z85.528 Personal history of other malignant neoplasm of kidney; Z86.14 Personal history of Methicillin resistant Staphylococcus aureus infection; Z81.8 Family history of other mental and behavioral disorders; Z82.49 Family history of ischemic heart disease and other diseases of the circulatory system; Z82.1 Family history of blindness and visual loss; Z68.38 Body mass index [BMI] 38.0-38.9, adult
CPT/HCPCS: 36415; 73560; 80048; 80053; 82962; 83735; 85025; 85651; 86140; 87071; 87075; A7015; J0878; J1100; J1170; J1815; J1885; J2001; J2185; J2270; J2405; J2704; J3475; J3490; J7030; Q0162; 97110; 97116; 97530; 97535; A4461

== ENCOUNTER → 2018-06-08 | Outpatient (CLI) | payer MEDICARE ==
[2018-05-20 13:13] VITALS: BP 114/54
[~2018-06-08] MED LIST changes: -ACETAMINOPHEN 500 MG TABLET PO ONE; +APIX2.5T PO; +CIPR250T30 PO; -CLINDAMYCIN 900MG PREMIX 50 ML IV PRN; +HYDR4TAB PO; -IV RINGERS,LACTATED 1000ML 1,000 ML IV SCH; -LIDOCAINE 1% PF 2 ML VIAL. ID PRN; +LINE600T PO; -MELOXICAM 7.5 MG TABLET PO PRN; -MORPHINE SULFATE 5 MG, KETOROLAC 30MG VIAL 30 MG, ROPIVacaine 0.5% PF 60 ML, EPINEPHrin... INT ART ONE; -PROCHLORPERAZINE 10 MG/2 ML VIAL. IV PRN; -fentaNYL PF VIAL 100 MCG/2 ML VIAL IV PRN
== END | disposition home or self-care (01) ==
LOC: SPEC 17:33
PROVIDERS: ATTEND Family Medicine
DX: Z47.1 Aftercare following joint replacement surgery (principal); Z96.652 Presence of left artificial knee joint; Z88.2 Allergy status to sulfonamides; Z88.1 Allergy status to other antibiotic agents; Z88.8 Allergy status to other drugs, medicaments and biological substances; Z79.899 Other long term (current) drug therapy; Z87.891 Personal history of nicotine dependence
CPT/HCPCS: 87071; 87075

== ENCOUNTER 2018-06-16 14:52 | Emergency (ER) | payer MEDICARE ==
[~2018-06-16] VITALS: Ht 165.1 cm; Wt 98.9 kg
[~2018-06-16 14:52] MED LIST changes: +CIPR250T30 PO; +LINE600T PO
[2018-06-16] MEDS ORDERED: HYDROmorphone 4 MG TABLET PO ONE (16:45)
--- NOTE | 2018-06-16 17:07 | RAD ---
PQRS Compliance statement: One or more of the following individualized dose reduction techniques were utilized for this examination: 1. Automated exposure control. 2. Adjustment of the mA and/or kV according to patient size. 3. Use of iterative reconstruction technique. Indication:MECHANICAL FALL PREV SENT TECHNIQUE: CT head without IV contrast COMPARISON:None FINDINGS: No pathologic extra-axial or intra-axial fluid collection. The ventricles and basal cisterns are within normal limits. No acute intracranial bleed. No focal loss of kirk-white differentiation. No large scalp hematoma. Orbits within normal limits. No acute calvarial fracture. Visualized paranasal sinuses and mastoid air cells are clear. IMPRESSION: No acute intracranial process or calvarial fracture. Indication:MECHANICAL FALL PREV SENT TECHNIQUE: CT of the cervical spine without IV contrast with multiplanar reformats. COMPARISON:None FINDINGS: Status post anterior fusion of C4-C6. Atlantoaxial joint interval is preserved. No compression deformities. Facet joints are in normal anatomic alignment with multilevel moderate to severe facet arthropathy. No acute fractures. Noncontrast appearance of the neck soft tissue is within normal limits. Clear lung apices. IMPRESSION: No acute cervical spine fracture. Multilevel moderate to severe facet arthropathy. Indication:MECHANICAL FALL PREV SENT TECHNIQUE: CT of the maxillofacial bones without IV contrast multiplanar reformats. COMPARISON: None FINDINGS: The nasal septum is relatively midline. Minimally displaced left nasal bone fracture, age indeterminate but most likely chronic. The bilateral zygoma and zygomatic arch is within normal limits. Bilateral external auditory canals and inner ear cavities are within normal limits. Bilateral pterygoid plates are within normal limits. The bilateral globes, extraocular muscles and intraorbital fat within normal limits. The paranasal sinuses and mastoid air cells are clear. Bilateral temporomandibular joints and mandible are within normal limits. Noncontrast appearance of the nasopharynx and oropharynx within normal limits. No fascial soft tissue edema or inflammation. IMPRESSION: No acute findings. Electronically signed by: David Salter DO (06/16/2018 5:04 PM) [facility]
--- NOTE | 2018-06-16 17:27 | RAD ---
KNEE RIGHT 3V History: ER PATIENT. TRAUMA FALL TODAY. PAIN IN RIGHT KNEE. Hx RECENT HISTORY RIGHT TOTAL KNEE ARTHROPLASTY. . Comparison: June 08, 2018 Right knee arthroplasty redemonstrated as is distal medial femoral side plate and screws. No evidence of an acute fracture. No aggressive bone destruction. Mild lucency along the tibial plateau margins is unchanged. IMPRESSION: No evidence of acute fracture or dislocation. Electronically signed by: Jung Hudson MD (06/16/2018 5:24 PM) [id number]
[2018-06-16 18:24] VITALS: BP 117/57
--- NOTE | 2018-06-16 18:38 | PHYS DOC ---
Past Medical History Past Medical History: Anxiety, Cancer, Depression, DVT, GERD, High Cholesterol , Hypertension, Other Additional Past Medical Histor: back pain/DVT R LEG,KIDNEY CA,CHRONIC PAIN, NERVE DAMAGE LEGS (TRACI THOMAS APRN) Past Surgical History: Appendectomy, Cervical Fusion, Hysterectomy, Knee Replacement, Tonsillectomy, Other Additional Past Surgical Histo: back/cataract,RIGHT KNEE SX,HERNIA,L KIDNEY 1/ 2 REMOVED (TRACI THOMAS APRN) Alcohol Use: None Drug Use: None (TRACI THOMAS APRN) Adult General Chief Complaint Chief Complaint: MECHANICAL FALL HPI HPI Patient is a 67 year old female who presents with facial contusions and mild left lateral neck pain as well as chronic right knee pain status post falling. Patient states she was getting out of the bed today, she states she has a wound VAC in the right knee from complications of knee replacement, she states the wound VAC fell down, she states in effort to try and catch the wound VAC she bent over and fell on her face. Patient denies any loss of consciousness. Denies being on any anticoagulants. (TRACI THOMAS APRN) Review of Systems Review of Systems Constitutional: Denies fever or chills [] Eyes: Denies change in visual acuity, redness, or eye pain [] HENT: Reports facial contusions. Denies nasal congestion or sore throat [] Respiratory: Denies cough or shortness of breath [] Cardiovascular: No additional information not addressed in HPI [] GI: Denies abdominal pain, nausea, vomiting, bloody stools or diarrhea [] : Denies dysuria or hematuria [] Musculoskeletal: Reports left lateral neck pain, denies any mid or low back pain. Integument: Denies rash or skin lesions [] Neurologic: Denies headache, focal weakness or sensory changes [] All other systems were reviewed and found to be within normal limits, except as documented in this note. (TRACI THOMAS APRN) Current Medications Current Medications Current Medications Medications (Trade) Dose Ordered Sig/Hina Start Time Stop Time Status Last Admin Dose Admin Hydromorphone HCl (Dilaudid) 4 mg 1X ONCE 06/16/18 16:45 06/16/18 16:46 DC 06/16/18 16:32 4 MG (CORBY ADORNO DO) Allergies Allergies Allergies Coded Allergies Type Severity Reaction Last Updated Verified fentanyl Allergy Severe "went out of it" 06/10/18 Yes Sulfa (Sulfonamide Antibiotics) Allergy Intermediate Rash, Nausea and Vomiting 06/10/18 Yes cephalexin Allergy Intermediate RASH, HIVES, NAUSEA/VOMITING 06/10/18 Yes gabapentin Allergy Intermediate RASH, ITCHING 06/10/18 Yes hydrocodone Allergy Intermediate Tolerates hydromorphone 05/17/18 Yes metformin Allergy Intermediate 05/17/18 Yes oxymorphone Allergy Intermediate 05/17/18 Yes bupropion Adverse Reaction Intermediate "MAKES HER CRAZY" 06/10/18 Yes oxycodone Adverse Reaction Intermediate Nausea and Vomiting 05/17/18 Yes rosuvastatin Adverse Reaction Intermediate MUSCLE ACHING 06/10/18 Yes (CORBY ADORNO DO) Physical Exam Physical Exam Constitutional: Well developed, well nourished, no acute distress, non-toxic appearance. [] HENT: Normocephalic, atraumatic, bilateral external ears normal, oropharynx moist, no oral exudates, nose normal. Bruising noted on forehead, anterior nose , mouth especially upper lip and chin. Eyes: PERRLA, EOMI, conjunctiva normal, no discharge. [] Neck: Normal range of motion, diffuse paraspinal muscle tenderness the left lateral cervical spine, no midline cervical spine tenderness, supple, no stridor. [] Cardiovascular:Heart rate regular rhythm, no murmur [] Lungs & Thorax: Bilateral breath sounds clear to auscultation [] Abdomen: Bowel sounds normal, soft, no tenderness, no masses, no pulsatile masses. [] Skin: Warm, dry, no erythema, no rash. [] Back: No tenderness, no CVA tenderness. [] Extremities: Right knee is in a immobilizer, there is a wound VAC present. No signs of infection to the area. Neurologic: Alert and oriented X 3, normal motor function, normal sensory function, no focal deficits noted. Cranial nerves II through XII intact Psychologic: Affect normal, judgement normal, mood normal. [] (TRACI THOMAS APRN) Current Patient Data Vital Signs Vital Signs Date Time Temp Pulse Resp B/P (MAP) Pulse Ox O2 Delivery O2 Flow Rate FiO2 06/16/18 18:24 66 19 98 06/16/18 16:10 98.2 144/72 (96) Room Air 98.2 (ADORNO,CORBY R DO) EKG EKG [] (TRACI THOMAS APRN) Radiology/Procedures Radiology/Procedures [] (TRACI THOMAS APRN) Course & Med Decision Making Course & Med Decision Making Pertinent Labs and Imaging studies reviewed. (See chart for details) This is a 67-year-old female patient presenting to the ED today to be evaluated status post falling. Was complaining of facial bruising and left lateral neck pain, right knee pain. Right knee is in an immobilizer, a wound VAC present draining well. CT of the head, cervical spine, maxillofacial, and right knee x- rays are negative for any acute findings. Patient was discharged to home. Tetanus up-to-date. Follow-up with her own doctor as as needed. (TRACI THOMAS APRN) Dragon Disclaimer Dragon Disclaimer This electronic medical record was generated, in whole or in part, using a voice recognition dictation system. (TRACI THOMAS APRN) Departure Departure Impression: Primary Impression: Fall from standing Additional Impressions: Facial contusion Right knee pain Disposition: 01 HOME, SELF-CARE Condition: STABLE Referrals: BLANCA BE MD (PCP) Follow-up with your doctor Patient Instructions: Contusion, [id number], Fall Prevention and Home Safety Additional Instructions: You were evaluated in the emergency room after falling, your CT of the head, neck, face are negative for any acute findings. Your right knee x-ray is negative for any acute findings. Please continue following up with your own doctors. Attending Signature Attending Signature I have reviewed the PA/WARP PICKER's note and plan of care. I was available for consultation as needed during the patient's visit in the emergency department. I agree with the clinical impression, plan, and disposition. (CORBY ADORNO DO) Problem Qualifiers Primary Impression: Fall from standing Encounter type: initial encounter Qualified Codes: W19.XXXA - Unspecified fall, initial encounter Additional Impressions: Facial contusion Encounter type: initial encounter Qualified Codes: S00.83XA - Contusion of other part of head, initial encounter Right knee pain Chronicity: acute Qualified Codes: M25.561 - Pain in right knee TRACI THOMAS APRN Jun 16, 2018 18:38 CORBY ADORNO DO Jul 03, 2018 13:43
== END 2018-06-16 18:50 | disposition home or self-care (01) ==
LOC: ER 14:52
DX: S00.83XA Contusion of other part of head, initial encounter (principal); G89.29 Other chronic pain; M25.561 Pain in right knee; K21.9 Gastro-esophageal reflux disease without esophagitis; E78.00 Pure hypercholesterolemia, unspecified; I10 Essential (primary) hypertension; Z98.1 Arthrodesis status; F32.9 Major depressive disorder, single episode, unspecified; F41.9 Anxiety disorder, unspecified; Z86.718 Personal history of other venous thrombosis and embolism; Z96.651 Presence of right artificial knee joint; Z88.2 Allergy status to sulfonamides; Z88.1 Allergy status to other antibiotic agents; Z88.4 Allergy status to anesthetic agent; Z88.5 Allergy status to narcotic agent; Z88.8 Allergy status to other drugs, medicaments and biological substances; W18.39XA Other fall on same level, initial encounter; Y93.89 Activity, other specified; Y92.89 Other specified places as the place of occurrence of the external cause; Y99.8 Other external cause status
CPT/HCPCS: 70450; 70486; 72125; 73562; 99284-25

== ENCOUNTER 2019-01-11 10:59 | Inpatient (IN) | payer MEDICARE ==
[~2019-01-11] VITALS: Ht 165.1 cm; Wt 97.8 kg
[~2019-01-11 10:59] MED LIST changes: -EZET10TA18 PO; +EZET10TA20 PO; -LINE600T PO; +LINE600T12 PO
[2019-01-11] MEDS ORDERED: FAMOTIDINE 20 MG/2 ML VIAL IVP ONE (11:30)
[2019-01-11] MEDS ORDERED: ONDANSETRON PF 4 MG/2 ML VIAL. IV ONE (11:30)
[2019-01-11] MEDS ORDERED: IV NORMAL SALINE 1000ML BAG 1,000 ML IV ONE ×2 (11:30→15:30)
--- NOTE | 2019-01-11 11:38 | PHYS DOC ---
Past Medical History Past Medical History: Anxiety, Cancer, Depression, DVT, GERD, High Cholesterol, Hypertension, Other Additional Past Medical Histor: back pain/DVT R LEG,KIDNEY CA,CHRONIC PAIN,NERVE DAMAGE LEGS Past Surgical History: Appendectomy, Cervical Fusion, Hysterectomy, Knee Replacement, Tonsillectomy, Other Additional Past Surgical Histo: back/cataract,RIGHT KNEE SX,HERNIA,L KIDNEY 1/2 REMOVED Alcohol Use: None Drug Use: None Adult General Chief Complaint Chief Complaint: NAUSEA/VOMITING/DIARRHA HPI HPI Patient is a 68 year old female with hx of GERD, HTN, high cholesterol, who presents with nausea and vomiting for 6 weeks. Patient denies any abdominal pain except when she is vomiting or coughing. She states she has followed up with the GI Dr. Dickerson who put her on medicine that begins with a "P" for acid reflex and vomiting likely Protonix. She states they did an upper GI scope which was negative. She states they're planning to check on her gallbladder next week but she can't wait until then. She states she went to see her PCP and was told he was at home sick. She states her symptoms were worse last night with coughing and vomiting. Review of Systems Review of Systems Constitutional: Denies fever or chills [] Eyes: Denies change in visual acuity, redness, or eye pain [] HENT: Denies nasal congestion or sore throat [] Respiratory: Denies cough or shortness of breath [] Cardiovascular: No additional information not addressed in HPI [] GI:Reports nausea, vomiting. Denies abdominal pain, bloody stools or diarrhea [] : Denies dysuria or hematuria [] Musculoskeletal: Denies back pain or joint pain [] Integument: Denies rash or skin lesions [] Neurologic: Denies headache, focal weakness or sensory changes [] All other systems were reviewed and found to be within normal limits, except as documented in this note. Current Medications Current Medications Current Medications Medications (Trade) Dose Ordered Sig/Hina Start Time Stop Time Status Last Admin Dose Admin Famotidine (Pepcid Vial) 20 mg 1X ONCE 01/11/19 11:30 01/11/19 11:31 DC 01/11/19 11:44 20 MG Info (CONTRAST GIVEN -- Rx MONITORING) 1 each PRN DAILY PRN 01/11/19 12:15 01/13/19 12:14 Iohexol (Omnipaque 300 Mg/ml) 50 ml 1X ONCE 01/11/19 12:15 01/11/19 12:16 DC 01/11/19 12:18 50 ML Ondansetron HCl (Zofran) 4 mg 1X ONCE 01/11/19 11:30 01/11/19 11:31 DC 01/11/19 11:44 4 MG Sodium Chloride 1,000 ml @ 1,000 mls/hr 1X ONCE 01/11/19 11:30 01/11/19 12:29 DC 01/11/19 11:45 1,000 MLS/HR Allergies Allergies Allergies Coded Allergies Type Severity Reaction Last Updated Verified fentanyl Allergy Severe "went out of it" 06/10/18 Yes Sulfa (Sulfonamide Antibiotics) Allergy Intermediate Rash, Nausea and Vomiting 06/10/18 Yes cephalexin Allergy Intermediate RASH, HIVES, NAUSEA/VOMITING 06/10/18 Yes gabapentin Allergy Intermediate RASH, ITCHING 06/10/18 Yes hydrocodone Allergy Intermediate Tolerates hydromorphone 05/17/18 Yes metformin Allergy Intermediate 05/17/18 Yes oxymorphone Allergy Intermediate 05/17/18 Yes bupropion Adverse Reaction Intermediate "MAKES HER CRAZY" 06/10/18 Yes oxycodone Adverse Reaction Intermediate Nausea and Vomiting 05/17/18 Yes rosuvastatin Adverse Reaction Intermediate MUSCLE ACHING 06/10/18 Yes Physical Exam Physical Exam Constitutional: Well developed, well nourished, no acute distress, non-toxic appearance. [] HENT: Normocephalic, atraumatic, bilateral external ears normal, oropharynx moist, no oral exudates, nose normal. [] Eyes: PERRLA, EOMI, conjunctiva normal, no discharge. [] Neck: Normal range of motion, no tenderness, supple, no stridor. [] Cardiovascular:Heart rate regular rhythm, no murmur [] Lungs & Thorax: Bilateral breath sounds clear to auscultation [] Abdomen: Bowel sounds normal, soft, no tenderness, no masses, no pulsatile masses. [] Skin: Warm, dry, no erythema, no rash. [] Back: No tenderness, no CVA tenderness. [] Extremities: No tenderness, no cyanosis, no clubbing, ROM intact, no edema. Right knee in an brace. Old healed surgical incision on the right anterior knee. Neurologic: Alert and oriented X 3, normal motor function, normal sensory function, no focal deficits noted. [] Psychologic: Affect normal, judgement normal, mood normal. [] Current Patient Data Vital Signs Vital Signs Date Time Temp Pulse Resp B/P (MAP) Pulse Ox O2 Delivery O2 Flow Rate FiO2 01/11/19 14:00 106 147/60 (89) 94 Room Air 01/11/19 11:16 98.3 20 98.3 Lab Values Laboratory Tests Test 01/11/19 11:40 01/11/19 13:25 White Blood Count 16.6 x10^3/uL (4.0-11.0) H Red Blood Count 4.70 x10^6/uL (3.50-5.40) Hemoglobin 13.2 g/dL (12.0-15.5) Hematocrit 40.3 % (36.0-47.0) Mean Corpuscular Volume 86 fL (79-100) Mean Corpuscular Hemoglobin 28 pg (25-35) Mean Corpuscular Hemoglobin Concent 33 g/dL (31-37) Red Cell Distribution Width 15.2 % (11.5-14.5) H Platelet Count 315 x10^3/uL (140-400) Neutrophils (%) (Auto) 90 % (31-73) H Lymphocytes (%) (Auto) 7 % (24-48) L Monocytes (%) (Auto) 3 % (0-9) Eosinophils (%) (Auto) 1 % (0-3) Basophils (%) (Auto) 0 % (0-3) Neutrophils # (Auto) 14.9 x10^3/uL (1.8-7.7) H Lymphocytes # (Auto) 1.1 x10^3/uL (1.0-4.8) Monocytes # (Auto) 0.5 x10^3/uL (0.0-1.1) Eosinophils # (Auto) 0.1 x10^3/uL (0.0-0.7) Basophils # (Auto) 0.1 x10^3/uL (0.0-0.2) Segmented Neutrophils % 76 % (35-66) H Band Neutrophils % 15 % (0-9) H Lymphocytes % 4 % (24-48) L Monocytes % 3 % (0-10) Basophils % 2 % (0-3) Platelet Estimate Adequate (ADEQUATE) Sodium Level 143 mmol/L (136-145) Potassium Level 3.4 mmol/L (3.5-5.1) L Chloride Level 102 mmol/L (98-107) Carbon Dioxide Level 34 mmol/L (21-32) H Anion Gap 7 (6-14) Blood Urea Nitrogen 23 mg/dL (7-20) H Creatinine 1.0 mg/dL (0.6-1.0) Estimated GFR (Cockcroft-Gault) 55.0 BUN/Creatinine Ratio 23 (6-20) H Glucose Level 138 mg/dL (70-99) H Calcium Level 9.5 mg/dL (8.5-10.1) Total Bilirubin 0.7 mg/dL (0.2-1.0) Aspartate Amino Transferase (AST) 10 U/L (15-37) L Alanine Aminotransferase (ALT) 14 U/L (14-59) Alkaline Phosphatase 61 U/L (46-116) Total Protein 6.8 g/dL (6.4-8.2) Albumin 3.2 g/dL (3.4-5.0) L Albumin/Globulin Ratio 0.9 (1.0-1.7) L Lipase 103 U/L (73-393) Ethyl Alcohol Level < 10 mg/dL (0-10) Urine Collection Type Unknown Urine Color Yellow Urine Clarity Clear Urine pH 7.0 Urine Specific [place] >=1.030 Urine Protein Negative mg/dL (NEG-TRACE) Urine Glucose (UA) Negative mg/dL (NEG) Urine Ketones (Stick) Negative mg/dL (NEG) Urine Blood Negative (NEG) Urine Nitrite Negative (NEG) Urine Bilirubin Negative (NEG) Urine Urobilinogen Dipstick 0.2 mg/dL (0.2 mg/dL) Urine Leukocyte Esterase Negative (NEG) Urine RBC 1-2 /HPF (0-2) Urine WBC 1-4 /HPF (0-4) Urine Squamous Epithelial Cells Many /LPF Urine Bacteria Moderate /HPF (0-FEW) Urine Mucus Slight /LPF Urine Opiates Screen Neg (NEG) Urine Methadone Screen Neg (NEG) Urine Barbiturates Neg (NEG) Urine Phencyclidine Screen Neg (NEG) Urine Amphetamine/Methamphetamine Neg (NEG) Urine Benzodiazepines Screen Neg (NEG) Urine Cocaine Screen Neg (NEG) Urine Cannabinoids Screen Neg (NEG) Urine Ethyl Alcohol Neg (NEG) Laboratory Tests 01/11/19 11:40 Laboratory Tests 01/11/19 11:40 EKG EKG [] Radiology/Procedures Radiology/Procedures []PROCEDURE: CT ABD PELV W/ IV CONTRST ONLY CT study of the abdomen and pelvis with contrast Clinical indications: Nausea and vomiting for 6 weeks. COMPARISON: None available. TECHNIQUE: After IV infusion of 50 cc of Omnipaque 300, helical CT scanning of the abdomen and pelvis was performed. No GI contrast was administered. This may decrease the sensitivity to detect GI tract pathology. PQRS compliance Statement One or more of the following individualized dose reduction techniques were utilized for this study: 1. Automated exposure control 2. Adjustment of the mA and/or kV according to patient size 3. Use of iterative reconstruction technique FINDINGS: The liver and spleen and pancreas are normal. Multiple small gallstones are seen within the gallbladder. No extra hepatic biliary ductal dilatation is seen. No adrenal mass is evident. Both kidneys are normal without hydronephrosis or hydroureter. Urinary bladder is not abnormally distended. A LAP Band is a present. There is a small hiatal hernia. Uterus is surgically absent. Urinary bladder is not abnormally distended. Small umbilical hernia is seen containing only fat. No inflammatory change is seen here. Small surgical mesh is seen at the opening of the umbilical hernia. No obstructive bowel pattern is seen. Sigmoid diverticulosis is seen without diverticulitis. The appendix is not visualized but there are no CT findings of appendicitis. No free fluid or mesenteric edema or free air is seen. Nodular lung infiltrates are seen within both lower lobes and the lingula. Postsurgical changes of the lumbar spine and lumbosacral area on seen related to fusions. Grade 1 anterolisthesis of L4-5 is seen. Grade 1 anterolisthesis of L5-S1 is seen. No lytic process is evident. IMPRESSION: Nodular lung infiltrates are seen within both lower lobes and the inferior segment of the lingula. This could be due to inflammatory or infectious disease including the possibility of aspiration pneumonitis. LAP Band is present. There is a small hiatal hernia present versus dilatation of the distal esophagus related to tightness of the LAP Band. Sigmoid diverticulosis without diverticulitis. Cholelithiasis. Electronically signed by: Sirena Pablo MD (01/11/2019 1:07 PM) [id number] DICTATED and SIGNED BY: SIRENA PABLO MD DATE: 01/11/19 1307 PROCEDURE: ABDOMEN LTD Right upper quadrant abdominal ultrasound without comparison for nausea and vomiting. Technique an findings: Real-time kirk general office assistant color Doppler evaluation of the right upper quadrant organs is performed. The liver is enlarged and diffusely hyperechoic suggesting diffuse fatty infiltration. No focal parenchymal abnormalities. No intra or extrahepatic biliary ductal dilatation. Common bile duct measures 5 mm. The gallbladder is fluid distended and notable for multiple dependent shadowing gallstones. No pericholecystic fluid, gallbladder wall thickening, or sonographic Haddad sign to suggest acute cholecystitis. The pancreatic head and neck are normal in appearance. The majority of the pancreatic body and tail are obscured. The IVC is patent. The aorta is nonaneurysmal. The right kidney measures 10.4 x 4.4 x 3.6 cm with no hydronephrosis or parenchymal abnormality. IMPRESSION: 1. Hepatomegaly and diffuse hepatic steatosis. 2. Cholelithiasis without sonographic evidence of acute cholecystitis. Electronically signed by: Paulie Cabezas MD (01/11/2019 1:01 PM) [id number] DICTATED and SIGNED BY: PAULIE CABEZAS MD DATE: 01/11/19 1301 PROCEDURE: CHEST PA & LATERAL CHEST PA LATERAL History: Cough, aspiration pneumonia on CT. Comparison: Two-view chest 05/10/2018. CT abdomen and pelvis with contrast, earlier same day. Findings: Cardiac size is normal. Atherosclerotic thoracic aorta. Pulmonary vasculature is normal. Nodular opacities in the left lung base are noted. There is a nodular opacity in the left midlung. Nodular opacities in the right lower lobe are subtle radiographically. The upper lungs are clear. No pleural effusion or pneumothorax is seen. Bones appear stable. There is gastric lap band. Spinal column stimulator leads redemonstrated. Posterior fusion hardware of the lumbar spine. ACDF hardware. IMPRESSION: Left greater than right basilar nodular opacities may be infectious/inflammatory. 6-8 weeks after completion of medical therapy, a followup chest radiograph is recommended to document resolution and exclude underlying malignancy. Electronically signed by: Bhanu Mendieta MD (01/11/2019 3:16 PM) [id number] DICTATED and SIGNED BY: BHANU MENDIETA MD DATE: 01/11/19 1516 Course & Med Decision Making Course & Med Decision Making Pertinent Labs and Imaging studies reviewed. (See chart for details) This is a 68-year-old female patient presenting to the ED today with nausea, vomiting, symptoms for 6 weeks. CBC with a WBC of 16.6 and a left shift, CMP with nothing really acute. Lactic is normal. CT of the abdomen and pelvic was noted for bilateral infiltrates suspicious of aspiration pneumonia. Chest x-ray was also noted for the same right upper quadrant limited ultrasound noted for cholelithiasis. Routine consult placed for general surgery and GI. Spoke with Dr. Busch who accepted patient for admission. Started on Levaquin. Dragon Disclaimer Dragon Disclaimer This electronic medical record was generated, in whole or in part, using a voice recognition dictation system. Departure Departure Impression: Primary Impression: Nausea & vomiting Additional Impressions: Aspiration pneumonia Cholelithiases Disposition: 09 ADMITTED INPATIENT Condition: STABLE Referrals: EMILY BASSETT MD (PCP) Problem Qualifiers Primary Impression: Nausea & vomiting Vomiting type: unspecified Vomiting Intractability: non-intractable Qualified Codes: R11.2 - Nausea with vomiting, unspecified Additional Impressions: Aspiration pneumonia Aspiration pneumonia type: due to vomit Laterality: unspecified laterality Lung location: unspecified part of lung Qualified Codes: J69.0 - Pneumonitis due to inhalation of food and vomit Cholelithiases Cholelithiasis location: gallbladder Cholecystitis presence: without cholecystitis Biliary obstruction: with biliary obstruction Qualified Codes: K80.21 - Calculus of gallbladder without cholecystitis with obst ruction TRACI THOMAS DOLL DRESSER Jan 11, 2019 11:38
[2019-01-11 11:54] LABS: BASO # 0.1 x10^3/uL (0.0-0.2); BASO % 0 % (0-3); EOS # 0.1 x10^3/uL (0.0-0.7); EOS % 1 % (0-3); HEMATOCRIT 40.3 % (36.0-47.0); HEMOGLOBIN 13.2 g/dL (12.0-15.5); LYMPH # 1.1 x10^3/uL (1.0-4.8); LYMPH % 7 % (24-48); MEAN CORPUSCULAR HEMOGLOBIN 28 pg (25-35); MEAN CORPUSCULAR HGB CONC 33 g/dL (31-37); MEAN CORPUSCULAR VOLUME 86 fL (79-100); MONO # 0.5 x10^3/uL (0.0-1.1); MONO % 3 % (0-9); NEUT # 14.9 x10^3/uL (1.8-7.7); NEUT % 90 % (31-73); PLATELET COUNT 315 x10^3/uL (140-400); RED CELL DISTRIBUTION WIDTH 15.2 % (11.5-14.5); WHITE BLOOD COUNT 16.6 x10^3/uL (4.0-11.0)
[2019-01-11 12:01] LABS: CALCIUM 9.5 mg/dL (8.5-10.1); POTASSIUM 3.4 mmol/L (3.5-5.1)
[2019-01-11 12:06] LABS: ALBUMIN 3.2 g/dL (3.4-5.0); ALBUMIN/GLOBULIN RATIO 0.9 (1.0-1.7); TOTAL BILIRUBIN 0.7 mg/dL (0.2-1.0); TOTAL PROTEIN 6.8 g/dL (6.4-8.2)
[2019-01-11] MEDS ORDERED: IOHEXOL 300 MG/ML 100ML VIAL. IV ONE (12:15)
[2019-01-11] MEDS ORDERED: CONTRAST GIVEN. MC PRN (12:15)
--- NOTE | 2019-01-11 13:04 | RAD ---
Right upper quadrant abdominal ultrasound without comparison for nausea and vomiting. Technique an findings: Real-time kirk endoscopy nurse color Doppler evaluation of the right upper quadrant organs is performed. The liver is enlarged and diffusely hyperechoic suggesting diffuse fatty infiltration. No focal parenchymal abnormalities. No intra or extrahepatic biliary ductal dilatation. Common bile duct measures 5 mm. The gallbladder is fluid distended and notable for multiple dependent shadowing gallstones. No pericholecystic fluid, gallbladder wall thickening, or sonographic Haddad sign to suggest acute cholecystitis. The pancreatic head and neck are normal in appearance. The majority of the pancreatic body and tail are obscured. The IVC is patent. The aorta is nonaneurysmal. The right kidney measures 10.4 x 4.4 x 3.6 cm with no hydronephrosis or parenchymal abnormality. IMPRESSION: 1. Hepatomegaly and diffuse hepatic steatosis. 2. Cholelithiasis without sonographic evidence of acute cholecystitis. Electronically signed by: Paulie Lopez MD (01/11/2019 1:01 PM) [facility]
--- NOTE | 2019-01-11 13:09 | RAD ---
CT study of the abdomen and pelvis with contrast Clinical indications: Nausea and vomiting for 6 weeks. COMPARISON: None available. TECHNIQUE: After IV infusion of 50 cc of Omnipaque 300, helical CT scanning of the abdomen and pelvis was performed. No GI contrast was administered. This may decrease the sensitivity to detect GI tract pathology. PQRS compliance Statement One or more of the following individualized dose reduction techniques were utilized for this study: 1. Automated exposure control 2. Adjustment of the mA and/or kV according to patient size 3. Use of iterative reconstruction technique FINDINGS: The liver and spleen and pancreas are normal. Multiple small gallstones are seen within the gallbladder. No extra hepatic biliary ductal dilatation is seen. No adrenal mass is evident. Both kidneys are normal without hydronephrosis or hydroureter. Urinary bladder is not abnormally distended. A LAP Band is a present. There is a small hiatal hernia. Uterus is surgically absent. Urinary bladder is not abnormally distended. Small umbilical hernia is seen containing only fat. No inflammatory change is seen here. Small surgical mesh is seen at the opening of the umbilical hernia. No obstructive bowel pattern is seen. Sigmoid diverticulosis is seen without diverticulitis. The appendix is not visualized but there are no CT findings of appendicitis. No free fluid or mesenteric edema or free air is seen. Nodular lung infiltrates are seen within both lower lobes and the lingula. Postsurgical changes of the lumbar spine and lumbosacral area on seen related to fusions. Grade 1 anterolisthesis of L4-5 is seen. Grade 1 anterolisthesis of L5-S1 is seen. No lytic process is evident. IMPRESSION: Nodular lung infiltrates are seen within both lower lobes and the inferior segment of the lingula. This could be due to inflammatory or infectious disease including the possibility of aspiration pneumonitis. LAP Band is present. There is a small hiatal hernia present versus dilatation of the distal esophagus related to tightness of the LAP Band. Sigmoid diverticulosis without diverticulitis. Cholelithiasis. Electronically signed by: Luis Miugel Pablo MD (01/11/2019 1:07 PM) [id number]
[2019-01-11 13:32] LABS: BILIRUBIN,URINE NEGATIVE (NEG); CLARITY,URINE CLEAR; COLOR,URINE YELLOW; NITRITE,URINE NEGATIVE (NEG); PROTEIN,URINE NEGATIVE (NEG-TRACE); UROBILINOGEN,URINE 0.2 mg/dL (0.2 mg/dL)
[2019-01-11 13:38] LABS: BARBITURATES NEG (NEG); BENZODIAZEPINES NEG (NEG); CANNABINOIDS NEG (NEG); COCAINE NEG (NEG); METHADONE NEG (NEG); OPIATES NEG (NEG); PHENCYCLIDINE NEG (NEG)
[2019-01-11 13:39] LABS: AMPHETAMINE/METHAMPHETAMINE NEG (NEG)
[2019-01-11 13:41] LABS: SQUAMOUS EPITHELIAL CELL,UR MANY /LPF
[2019-01-11 13:43] LABS: BACTERIA,URINE MODERATE /HPF (0-FEW)
[2019-01-11 13:54] LABS: % BANDS 15 % (0-9); % BASOS 2 % (0-3); % LYMPHS 4 % (24-48); % MONOS 3 % (0-10); % SEGS 76 % (35-66); PLT ESTIMATE ADEQUATE (ADEQUATE)
--- NOTE | 2019-01-11 14:19 | PDOC1 ---
History and Physical Date of Admission Date of Admission DATE: 01/11/19 TIME: 14:17 Identification/Chief Complaint Chief Complaint SEEN IN ER, 68 year old female with hx of GERD, HTN, high cholesterol, EROSIVE ESOPHAGITIS , , who presents with nausea and vomiting for 6 weeks. Patient denies any abdominal pain except when she is vomiting or coughing. She states she has followed up with the GI Dr. Dickerson who put her on medicine that begins with a "P" for acid reflex and vomiting likely Protonix. She states they did an upper GI scope Past Medical History Past Medical History Past Medical History Past Medical History Past Medical History: Anxiety, Cancer, Depression, DVT, GERD, High Cholesterol, Hypertension, Other Additional Past Medical Histor: back pain/DVT R LEG,KIDNEY CA,CHRONIC PAIN,NERVE DAMAGE LEGS Past Surgical History: Appendectomy, Cervical Fusion, Hysterectomy, Knee Replacement, Tonsillectomy, Other Additional Past Surgical Histo: back/cataract,RIGHT KNEE SX,HERNIA,L KIDNEY 1/2 REMOVED renal cancer, OA, back pain, depression, GERD, colon polyps, diverticulosis, Alcohol Use: None Drug Use: None SEX: F STATUS: DIS IN LOCATION: [address] [place] [address] DATE OF DISCHARGE: 06/14/2018 PRINCIPAL DIAGNOSIS: Right knee wound drainage, status post extensive extensor mechanism reconstruction procedure. PROCEDURES: Include an irrigation and debridement of right knee with application of wound VAC. LOCATION: [facility] facility. FOLLOWUP: Dr. De La Cruz in 1 week. ACTIVITY: Knee brace locked in extension, may do leg lifts and ankle pumps, no knee motion. BRIEF DESCRIPTION OF HOSPITAL COURSE: The patient underwent an extensive extensor mechanism reconstruction procedure prior and went to a rehabilitation facility and developed some drainage, which was not reported for a period of fhx obesity Cardiovascular: HTN Pulmonary: No pertinent hx GI: GERD, Other Heme/Onc: Cancer Hepatobiliary: No pertinent hx, Cholelithiasis Psych: Anxiety, Depression Rheumatologic: No pertinent hx Infectious disease: No pertinent hx Renal/: Renal Ca. Endocrine: No pertinent hx Past Surgical History Past Surgical History: Cataract Removal, Total knee replacement, Tonsillectomy, Hysterectomy, Other Family History Family History: Hypertension Social History Smoke: <1 pack per day ALCOHOL: rare Drugs: None Current Problem List Problem List Problems Medical Problems: (1) Nausea & vomiting Status: Acute Current Medications Current Medications Current Medications Famotidine (Pepcid Vial) 20 mg 1X ONCE IVP Last administered on 01/11/19at 11:44; Start 01/11/19 at 11:30; Stop 01/11/19 at 11:31; Status DC Sodium Chloride 1,000 ml @ 1,000 mls/hr 1X ONCE IV Last administered on 01/11/19at 11:45; Start 01/11/19 at 11:30; Stop 01/11/19 at 12:29; Status DC Ondansetron HCl (Zofran) 4 mg 1X ONCE IV Last administered on 01/11/19at 11:44; Start 01/11/19 at 11:30; Stop 01/11/19 at 11:31; Status DC Iohexol (Omnipaque 300 Mg/ml) 50 ml 1X ONCE IV Last administered on 01/11/19at 12:18; Start 01/11/19 at 12:15; Stop 01/11/19 at 12:16; Status DC Info (CONTRAST GIVEN -- Rx MONITORING) 1 each PRN DAILY PRN MC SEE COMMENTS; Start 01/11/19 at 12:15; Stop 01/13/19 at 12:14 Active Scripts Active Zyvox (Linezolid) 600 Mg Tablet 600 Mg PO BID 6 Days Cipro (Ciprofloxacin Hcl) 250 Mg Tablet 500 Mg PO BID 6 Days Reported Triamterene-Hctz 75-50 Mg Tab (Triamterene/Hydrochlorothiazid) 1 Each Tablet 1 Tab PO DAILY Hydromorphone Hcl 4 Mg Tablet 4 Mg PO Q4HRS PRN Eliquis (Apixaban) 2.5 Mg Tablet 2.5 Mg PO BID Coreg (Carvedilol) 6.25 Mg Tablet 1 Tab PO BID Potassium Chloride 10 Meq Capsule.er 10 Meq PO UD Zetia (Ezetimibe) 10 Mg Tablet 1 Tab PO DAILY AM Vitamin D2 (Ergocalciferol (Vitamin D2)) 50,000 Unit Capsule 50,000 Unit PO QSU Lexapro (Escitalopram Oxalate) 20 Mg Tablet 40 Mg PO DAILY Trazodone Hcl 100 Mg Tablet 1 Tab PO QHS Ranitidine Hcl 300 Mg Capsule 1 Cap PO HS Cymbalta (Duloxetine Hcl) 60 Mg Capsule.dr 60 Mg PO BID Allergies Allergies: Coded Allergies: fentanyl (Verified Allergy, Severe, "went out of it", 06/10/18) Sulfa (Sulfonamide Antibiotics) (Verified Allergy, Intermediate, Rash, Nausea and Vomiting, 06/10/18) cephalexin (Verified Allergy, Intermediate, RASH, HIVES, NAUSEA/VOMITING, 06/10/18) gabapentin (Verified Allergy, Intermediate, RASH, ITCHING, 06/10/18) hydrocodone (Verified Allergy, Intermediate, Tolerates hydromorphone, 05/17/18) metformin (Verified Allergy, Intermediate, 05/17/18) oxymorphone (Verified Allergy, Intermediate, 05/17/18) Tolerates hydromorphone bupropion (Verified Adverse Reaction, Intermediate, "MAKES HER CRAZY", 06/10/18) oxycodone (Verified Adverse Reaction, Intermediate, Nausea and Vomiting, 05/17/18) rosuvastatin (Verified Adverse Reaction, Intermediate, MUSCLE ACHING, 05/14 12/01) ROS Review of System Review of Systems Review of Systems Constitutional: Denies fever or chills [] Eyes: Denies change in visual acuity, redness, or eye pain [] HENT: Denies nasal congestion or sore throat [] Respiratory: Denies cough or shortness of breath [] Cardiovascular: No additional information not addressed in HPI [] GI:Reports nausea, vomiting. Denies abdominal pain, bloody stools or diarrhea [] : Denies dysuria or hematuria [] Musculoskeletal: Denies back pain or joint pain [] Integument: Denies rash or skin lesions [] Neurologic: Denies headache, focal weakness or sensory changes [] 14 PT systems were reviewed and found to be within normal limits, except as documented General: YES: Fatigue PSYCHOLOGICAL ROS: YES: Anxiety, Depression Respiratory: YES: Cough Musculoskeletal: Yes Joint Stiffness Physical Exam Physical Exam Physical Exam Physical Exam Constitutional: Well developed, well nourished, no acute distress, non-toxic appearance. [] HENT: Normocephalic, atraumatic, bilateral external ears normal, oropharynx moist, no oral exudates, nose normal. [] Eyes: PERRLA, EOMI, conjunctiva normal, no discharge. [] Neck: Normal range of motion, no tenderness, supple, no stridor. [] Cardiovascular:Heart rate regular rhythm, no murmur [] Lungs & Thorax: Bilateral breath sounds clear to auscultation [] Abdomen: Bowel sounds normal, soft, no tenderness, no masses, no pulsatile masses. [] Skin: Warm, dry, no erythema, no rash. [] Back: No tenderness, no CVA tenderness. [] Extremities: No tenderness, no cyanosis, no clubbing, ROM intact, no edema. Right knee in an brace. Old healed surgical incision on the right anterior knee. Neurologic: Alert and oriented X 3, normal motor function, normal sensory function, no focal deficits noted. [] Psychologic: Affect normal, judgement normal, mood normal. [] General: Alert, Oriented X3, Cooperative, No acute distress HEENT: EOMI, Mucous membr. moist/pink Lungs: Clear to auscultation Heart: RRR Breasts: Not examined Abdomen: Soft Rectal Exam: not examined PELVIC: Examination not indicated Extremities: No cyanosis Neuro: Normal speech, Cranial nerves 3-12 NL Psych/Mental Status: Mental status NL, Mood NL Vitals Vitals Vital Signs Date Time Temp Pulse Resp B/P (MAP) Pulse Ox O2 Delivery O2 Flow Rate FiO2 01/11/19 11:16 98.3 106 20 152/73 (99) 94 Room Air 98.3 Labs Labs Laboratory Tests Test 01/11/19 11:40 01/11/19 13:25 White Blood Count 16.6 x10^3/uL (4.0-11.0) Red Blood Count 4.70 x10^6/uL (3.50-5.40) Hemoglobin 13.2 g/dL (12.0-15.5) Hematocrit 40.3 % (36.0-47.0) Mean Corpuscular Volume 86 fL (79-100) Mean Corpuscular Hemoglobin 28 pg (25-35) Mean Corpuscular Hemoglobin Concent 33 g/dL (31-37) Red Cell Distribution Width 15.2 % (11.5-14.5) Platelet Count 315 x10^3/uL (140-400) Neutrophils (%) (Auto) 90 % (31-73) Lymphocytes (%) (Auto) 7 % (24-48) Monocytes (%) (Auto) 3 % (0-9) Eosinophils (%) (Auto) 1 % (0-3) Basophils (%) (Auto) 0 % (0-3) Neutrophils # (Auto) 14.9 x10^3/uL (1.8-7.7) Lymphocytes # (Auto) 1.1 x10^3/uL (1.0-4.8) Monocytes # (Auto) 0.5 x10^3/uL (0.0-1.1) Eosinophils # (Auto) 0.1 x10^3/uL (0.0-0.7) Basophils # (Auto) 0.1 x10^3/uL (0.0-0.2) Segmented Neutrophils % 76 % (35-66) Band Neutrophils % 15 % (0-9) Lymphocytes % 4 % (24-48) Monocytes % 3 % (0-10) Basophils % 2 % (0-3) Platelet Estimate Adequate (ADEQUATE) Sodium Level 143 mmol/L (136-145) Potassium Level 3.4 mmol/L (3.5-5.1) Chloride Level 102 mmol/L (98-107) Carbon Dioxide Level 34 mmol/L (21-32) Anion Gap 7 (6-14) Blood Urea Nitrogen 23 mg/dL (7-20) Creatinine 1.0 mg/dL (0.6-1.0) Estimated GFR (Cockcroft-Gault) 55.0 BUN/Creatinine Ratio 23 (6-20) Glucose Level 138 mg/dL (70-99) Calcium Level 9.5 mg/dL (8.5-10.1) Total Bilirubin 0.7 mg/dL (0.2-1.0) Aspartate Amino Transf (AST/SGOT) 10 U/L (15-37) Alanine Aminotransferase (ALT/SGPT) 14 U/L (14-59) Alkaline Phosphatase 61 U/L (46-116) Total Protein 6.8 g/dL (6.4-8.2) Albumin 3.2 g/dL (3.4-5.0) Albumin/Globulin Ratio 0.9 (1.0-1.7) Lipase 103 U/L (73-393) Ethyl Alcohol Level < 10 mg/dL (0-10) Urine Collection Type Unknown Urine Color Yellow Urine Clarity Clear Urine pH 7.0 Urine Specific Walton >=1.030 Urine Protein Negative mg/dL (NEG-TRACE) Urine Glucose (UA) Negative mg/dL (NEG) Urine Ketones (Stick) Negative mg/dL (NEG) Urine Blood Negative (NEG) Urine Nitrite Negative (NEG) Urine Bilirubin Negative (NEG) Urine Urobilinogen Dipstick 0.2 mg/dL (0.2 mg/dL) Urine Leukocyte Esterase Negative (NEG) Urine RBC 1-2 /HPF (0-2) Urine WBC 1-4 /HPF (0-4) Urine Squamous Epithelial Cells Many /LPF Urine Bacteria Moderate /HPF (0-FEW) Urine Mucus Slight /LPF Urine Opiates Screen Neg (NEG) Urine Methadone Screen Neg (NEG) Urine Barbiturates Neg (NEG) Urine Phencyclidine Screen Neg (NEG) Urine Amphetamine/Methamphetamine Neg (NEG) Urine Benzodiazepines Screen Neg (NEG) Urine Cocaine Screen Neg (NEG) Urine Cannabinoids Screen Neg (NEG) Urine Ethyl Alcohol Neg (NEG) Laboratory Tests Test 01/11/19 11:40 01/11/19 13:25 White Blood Count 16.6 x10^3/uL (4.0-11.0) Red Blood Count 4.70 x10^6/uL (3.50-5.40) Hemoglobin 13.2 g/dL (12.0-15.5) Hematocrit 40.3 % (36.0-47.0) Mean Corpuscular Volume 86 fL (79-100) Mean Corpuscular Hemoglobin 28 pg (25-35) Mean Corpuscular Hemoglobin Concent 33 g/dL (31-37) Red Cell Distribution Width 15.2 % (11.5-14.5) Platelet Count 315 x10^3/uL (140-400) Neutrophils (%) (Auto) 90 % (31-73) Lymphocytes (%) (Auto) 7 % (24-48) Monocytes (%) (Auto) 3 % (0-9) Eosinophils (%) (Auto) 1 % (0-3) Basophils (%) (Auto) 0 % (0-3) Neutrophils # (Auto) 14.9 x10^3/uL (1.8-7.7) Lymphocytes # (Auto) 1.1 x10^3/uL (1.0-4.8) Monocytes # (Auto) 0.5 x10^3/uL (0.0-1.1) Eosinophils # (Auto) 0.1 x10^3/uL (0.0-0.7) Basophils # (Auto) 0.1 x10^3/uL (0.0-0.2) Segmented Neutrophils % 76 % (35-66) Band Neutrophils % 15 % (0-9) Lymphocytes % 4 % (24-48) Monocytes % 3 % (0-10) Basophils % 2 % (0-3) Platelet Estimate Adequate (ADEQUATE) Sodium Level 143 mmol/L (136-145) Potassium Level 3.4 mmol/L (3.5-5.1) Chloride Level 102 mmol/L (98-107) Carbon Dioxide Level 34 mmol/L (21-32) Anion Gap 7 (6-14) Blood Urea Nitrogen 23 mg/dL (7-20) Creatinine 1.0 mg/dL (0.6-1.0) Estimated GFR (Cockcroft-Gault) 55.0 BUN/Creatinine Ratio 23 (6-20) Glucose Level 138 mg/dL (70-99) Calcium Level 9.5 mg/dL (8.5-10.1) Total Bilirubin 0.7 mg/dL (0.2-1.0) Aspartate Amino Transf (AST/SGOT) 10 U/L (15-37) Alanine Aminotransferase (ALT/SGPT) 14 U/L (14-59) Alkaline Phosphatase 61 U/L (46-116) Total Protein 6.8 g/dL (6.4-8.2) Albumin 3.2 g/dL (3.4-5.0) Albumin/Globulin Ratio 0.9 (1.0-1.7) Lipase 103 U/L (73-393) Ethyl Alcohol Level < 10 mg/dL (0-10) Urine Collection Type Unknown Urine Color Yellow Urine Clarity Clear Urine pH 7.0 Urine Specific Walton >=1.030 Urine Protein Negative mg/dL (NEG-TRACE) Urine Glucose (UA) Negative mg/dL (NEG) Urine Ketones (Stick) Negative mg/dL (NEG) Urine Blood Negative (NEG) Urine Nitrite Negative (NEG) Urine Bilirubin Negative (NEG) Urine Urobilinogen Dipstick 0.2 mg/dL (0.2 mg/dL) Urine Leukocyte Esterase Negative (NEG) Urine RBC 1-2 /HPF (0-2) Urine WBC 1-4 /HPF (0-4) Urine Squamous Epithelial Cells Many /LPF Urine Bacteria Moderate /HPF (0-FEW) Urine Mucus Slight /LPF Urine Opiates Screen Neg (NEG) Urine Methadone Screen Neg (NEG) Urine Barbiturates Neg (NEG) Urine Phencyclidine Screen Neg (NEG) Urine Amphetamine/Methamphetamine Neg (NEG) Urine Benzodiazepines Screen Neg (NEG) Urine Cocaine Screen Neg (NEG) Urine Cannabinoids Screen Neg (NEG) Urine Ethyl Alcohol Neg (NEG) Images Images STATUS: REG ER ORD. PHYSICIAN: TRACI THOMAS APRN REASON: n/v 6 weeks PROCEDURE: CT ABD PELV W/ IV CONTRST ONLY CT study of the abdomen and pelvis with contrast Clinical indications: Nausea and vomiting for 6 weeks. COMPARISON: None available. TECHNIQUE: After IV infusion of 50 cc of Omnipaque 300, helical CT scanning of the abdomen and pelvis was performed. No GI contrast was administered. This may decrease the sensitivity to detect GI tract pathology. PQRS compliance Statement One or more of the following individualized dose reduction techniques were utilized for this study: 1. Automated exposure control 2. Adjustment of the mA and/or kV according to patient size 3. Use of iterative reconstruction technique FINDINGS: The liver and spleen and pancreas are normal. Multiple small gallstones are seen within the gallbladder. No extra hepatic biliary ductal dilatation is seen. No adrenal mass is evident. Both kidneys are normal without hydronephrosis or hydroureter. Urinary bladder is not abnormally distended. A LAP Band is a present. There is a small hiatal hernia. Uterus is surgically absent. Urinary bladder is not abnormally distended. Small umbilical hernia is seen containing only fat. No inflammatory change is seen here. Small surgical mesh is seen at the opening of the umbilical hernia. No obstructive bowel pattern is seen. Sigmoid diverticulosis is seen without diverticulitis. The appendix is not visualized but there are no CT findings of appendicitis. No free fluid or mesenteric edema or free air is seen. Nodular lung infiltrates are seen within both lower lobes and the lingula. Postsurgical changes of the lumbar spine and lumbosacral area on seen related to fusions. Grade 1 anterolisthesis of L4-5 is seen. Grade 1 anterolisthesis of L5-S1 is seen. No lytic process is evident. IMPRESSION: Nodular lung infiltrates are seen within both lower lobes and the inferior segment of the lingula. This could be due to inflammatory or infectious disease including the possibility of aspiration pneumonitis. LAP Band is present. There is a small hiatal hernia present versus dilatation of the distal esophagus related to tightness of the LAP Band. Sigmoid diverticulosis without diverticulitis. Cholelithiasis. Electronically signed by: Sirena Pablo MD (01/11/2019 1:07 PM) [id number] DICTATED and SIGNED BY: SIRENA PABLO MD DATE: 01/11/19 [id number] VTE Prophylaxis Ordered VTE Prophylaxis Devices: Yes VTE Pharmacological Prophylaxi: Yes Assessment/Plan Assessment/Plan IMPRESSION: INTRACTABLE VOMITING WITH WEIGHT LOSS Nodular lung infiltrates are seen within both lower lobes and the inferior segment of the lingula. possibility of aspiration pneumonitis., BUT NO FEVER, HOWEVER leukocytosis is noted ON CT LAP Band is present. There is a small hiatal hernia present versus dilatation of the distal esophagus related to tightness of the LAP Band. on EGD 01/04/19 (Dr. Dickerson) for epigastric pain, n/v: Grade A esophagitis, small hiatal hernia, normal duodenum. GERD obesity plan admit iv fluid support CONSULT DR DICKERSON ID CONSULT IV Levaquin 500mg x 1 home meds 75 min pt exam, chart review, > 50% of time spent with exam, chart review, pt care coordination PROCEDURE: CT ABD PELV W/ IV CONTRST ONLY CT study of the abdomen and pelvis with contrast Clinical indications: Nausea and vomiting for 6 weeks. COMPARISON: None available. TECHNIQUE: After IV infusion of 50 cc of Omnipaque 300, helical CT scanning of the abdomen and pelvis was performed. No GI contrast was administered. This may decrease the sensitivity to detect GI tract pathology. PQRS compliance Statement One or more of the following individualized dose reduction techniques were utilized for this study: 1. Automated exposure control 2. Adjustment of the mA and/or kV according to patient size 3. Use of iterative reconstruction technique FINDINGS: The liver and spleen and pancreas are normal. Multiple small gallstones are seen within the gallbladder. No extra hepatic biliary ductal dilatation is seen. No adrenal mass is evident. Both kidneys are normal without hydronephrosis or hydroureter. Urinary bladder is not abnormally distended. A LAP Band is a present. There is a small hiatal hernia. Uterus is surgically absent. Urinary bladder is not abnormally distended. Small umbilical hernia is seen containing only fat. No inflammatory change is seen here. Small surgical mesh is seen at the opening of the umbilical hernia. No obstructive bowel pattern is seen. Sigmoid diverticulosis is seen without diverticulitis. The appendix is not visualized but there are no CT findings of appendicitis. No free fluid or mesenteric edema or free air is seen. Nodular lung infiltrates are seen within both lower lobes and the lingula. Postsurgical changes of the lumbar spine and lumbosacral area on seen related to fusions. Grade 1 anterolisthesis of L4-5 is seen. Grade 1 anterolisthesis of L5-S1 is seen. No lytic process is evident. IMPRESSION: Nodular lung infiltrates are seen within both lower lobes and the inferior segment of the lingula. This could be due to inflammatory or infectious disease including the possibility of aspiration pneumonitis. LAP Band is present. There is a small hiatal hernia present versus dilatation of the distal esophagus related to tightness of the LAP Band. Sigmoid diverticulosis without diverticulitis. Cholelithiasis. Electronically signed by: Sirena Pablo MD (01/11/2019 1:07 PM) [id number] PERRY CHASE MD Jan 11, 2019 14:19
--- NOTE | 2019-01-11 15:19 | RAD ---
CHEST PA LATERAL History: Cough, aspiration pneumonia on CT. Comparison: Two-view chest 05/10/2018. CT abdomen and pelvis with contrast, earlier same day. Findings: Cardiac size is normal. Atherosclerotic thoracic aorta. Pulmonary vasculature is normal. Nodular opacities in the left lung base are noted. There is a nodular opacity in the left midlung. Nodular opacities in the right lower lobe are subtle radiographically. The upper lungs are clear. No pleural effusion or pneumothorax is seen. Bones appear stable. There is gastric lap band. Spinal column stimulator leads redemonstrated. Posterior fusion hardware of the lumbar spine. ACDF hardware. IMPRESSION: Left greater than right basilar nodular opacities may be infectious/inflammatory. 6-8 weeks after completion of medical therapy, a followup chest radiograph is recommended to document resolution and exclude underlying malignancy. Electronically signed by: Bhanu Mendieta MD (01/11/2019 3:16 PM) [id number]
[2019-01-11] MEDS ORDERED: ONDANSETRON PF 4 MG/2 ML VIAL. IV PRN (15:30)
[2019-01-11 15:45] VITALS: BP 115/58
--- NOTE | 2019-01-11 16:32 | PDOC2 ---
GI CONSULT Reason For Consult: N/v HPI: HPI: 68 y/o female admitted through ER. Vomiting x 6 weeks. Swallows solids and liquids, gets caught in epigastrium, comes back up. "Terrible" heartburn, just started pantoprazole. Has lost weight. Not stooling much because not taking a lot in. Denies dysphagia/odynophagia, hematemesis, abd pain (except sore muscles from retching), diarrhea, constipation, hematochezia, melena, and change in appetite. EGD 01/04/19 (Dr. Dickerson) for epigastric pain, n/v: Grade A esophagitis, small hiatal hernia, normal duodenum. EGD 01/2006 (Dr. Moore) for Hemoccult positive stool, GERD, dysphagia: 1cm possible Owen's (not confirmed w/ biopsy) and non-specific duodenitis. Colonoscopy 01/2006 (Dr. Moore) for hematochezia, Hemoccult positive stool, h/o colon polyps, change in bowel habits, fecal incontinence, melena, and FH CRC: two 5mm sessile adenomatous polyps at hepatic flexure, 6mm sessile hyperplastic polyp in rectum, internal hemorrhoids. Random colon biopsies were negative. Today's imaging notes hepatic steatosis and hepatomegaly, cholelithiasis, nodular lung infiltrates, small hiatal hernia vs dilatation of the distal esophagus related to tightness of lap band, and diverticulosis. She denies GB, liver, pancreas, and PUD history. Takes hydromorphone for back pain, no NSAIDs. PMH: PMH: HTN, HLD, DM (not since weight loss w/ lap band), DVT, COPD, renal cancer, OA, back pain, depression, GERD, colon polyps, diverticulosis, hemorrhoids umbilical hernia repair, tonsillectomy, cataract removal, appendectomy, hysterectomy, D&C, partial left nephrectomy, right knee surgeries x 6, back surgeries, back stimulator, lap band FH: Family History: No pertinent hx (denies GI cancers (though listed previously)) Social History: ALCOHOL: rare Drugs: None ROS: GEN: Denies fevers, chills, sweats HEENT: Denies blurred vision, sore throat CV: Denies chest pain RESP: Denies shortness of air, cough GI: Per HPI : Denies hematuria, dysuria ENDO: weight loss NEURO: Denies confusion, dizziness MSK: legs were swollen SKIN: Denies jaundice, pruritus Vitals: Vitals: Vital Signs Date Time Temp Pulse Resp B/P (MAP) Pulse Ox O2 Delivery O2 Flow Rate FiO2 01/11/19 14:00 106 147/60 (89) 94 Room Air 01/11/19 11:16 98.3 20 98.3 Labs: Labs: Laboratory Tests Test 01/11/19 11:40 01/11/19 13:25 01/11/19 14:30 White Blood Count 16.6 x10^3/uL (4.0-11.0) Red Blood Count 4.70 x10^6/uL (3.50-5.40) Hemoglobin 13.2 g/dL (12.0-15.5) Hematocrit 40.3 % (36.0-47.0) Mean Corpuscular Volume 86 fL (79-100) Mean Corpuscular Hemoglobin 28 pg (25-35) Mean Corpuscular Hemoglobin Concent 33 g/dL (31-37) Red Cell Distribution Width 15.2 % (11.5-14.5) Platelet Count 315 x10^3/uL (140-400) Neutrophils (%) (Auto) 90 % (31-73) Lymphocytes (%) (Auto) 7 % (24-48) Monocytes (%) (Auto) 3 % (0-9) Eosinophils (%) (Auto) 1 % (0-3) Basophils (%) (Auto) 0 % (0-3) Neutrophils # (Auto) 14.9 x10^3/uL (1.8-7.7) Lymphocytes # (Auto) 1.1 x10^3/uL (1.0-4.8) Monocytes # (Auto) 0.5 x10^3/uL (0.0-1.1) Eosinophils # (Auto) 0.1 x10^3/uL (0.0-0.7) Basophils # (Auto) 0.1 x10^3/uL (0.0-0.2) Segmented Neutrophils % 76 % (35-66) Band Neutrophils % 15 % (0-9) Lymphocytes % 4 % (24-48) Monocytes % 3 % (0-10) Basophils % 2 % (0-3) Platelet Estimate Adequate (ADEQUATE) Sodium Level 143 mmol/L (136-145) Potassium Level 3.4 mmol/L (3.5-5.1) Chloride Level 102 mmol/L (98-107) Carbon Dioxide Level 34 mmol/L (21-32) Anion Gap 7 (6-14) Blood Urea Nitrogen 23 mg/dL (7-20) Creatinine 1.0 mg/dL (0.6-1.0) Estimated GFR (Cockcroft-Gault) 55.0 BUN/Creatinine Ratio 23 (6-20) Glucose Level 138 mg/dL (70-99) Calcium Level 9.5 mg/dL (8.5-10.1) Total Bilirubin 0.7 mg/dL (0.2-1.0) Aspartate Amino Transf (AST/SGOT) 10 U/L (15-37) Alanine Aminotransferase (ALT/SGPT) 14 U/L (14-59) Alkaline Phosphatase 61 U/L (46-116) Total Protein 6.8 g/dL (6.4-8.2) Albumin 3.2 g/dL (3.4-5.0) Albumin/Globulin Ratio 0.9 (1.0-1.7) Lipase 103 U/L (73-393) Ethyl Alcohol Level < 10 mg/dL (0-10) Urine Collection Type Unknown Urine Color Yellow Urine Clarity Clear Urine pH 7.0 Urine Specific [place] >=1.030 Urine Protein Negative mg/dL (NEG-TRACE) Urine Glucose (UA) Negative mg/dL (NEG) Urine Ketones (Stick) Negative mg/dL (NEG) Urine Blood Negative (NEG) Urine Nitrite Negative (NEG) Urine Bilirubin Negative (NEG) Urine Urobilinogen Dipstick 0.2 mg/dL (0.2 mg/dL) Urine Leukocyte Esterase Negative (NEG) Urine RBC 1-2 /HPF (0-2) Urine WBC 1-4 /HPF (0-4) Urine Squamous Epithelial Cells Many /LPF Urine Bacteria Moderate /HPF (0-FEW) Urine Mucus Slight /LPF Urine Opiates Screen Neg (NEG) Urine Methadone Screen Neg (NEG) Urine Barbiturates Neg (NEG) Urine Phencyclidine Screen Neg (NEG) Urine Amphetamine/Methamphetamine Neg (NEG) Urine Benzodiazepines Screen Neg (NEG) Urine Cocaine Screen Neg (NEG) Urine Cannabinoids Screen Neg (NEG) Urine Ethyl Alcohol Neg (NEG) Lactic Acid Level 1.6 mmol/L (0.4-2.0) Allergies: Coded Allergies: fentanyl (Verified Allergy, Severe, "went out of it", 06/10/18) Sulfa (Sulfonamide Antibiotics) (Verified Allergy, Intermediate, Rash, Nausea and Vomiting, 06/10/18) cephalexin (Verified Allergy, Intermediate, RASH, HIVES, NAUSEA/VOMITING, 06/10/18) gabapentin (Verified Allergy, Intermediate, RASH, ITCHING, 06/10/18) hydrocodone (Verified Allergy, Intermediate, Tolerates hydromorphone, 05/17/18) metformin (Verified Allergy, Intermediate, 05/17/18) oxymorphone (Verified Allergy, Intermediate, 05/17/18) Tolerates hydromorphone bupropion (Verified Adverse Reaction, Intermediate, "MAKES HER CRAZY", 06/10/18) oxycodone (Verified Adverse Reaction, Intermediate, Nausea and Vomiting, 05/17/18) rosuvastatin (Verified Adverse Reaction, Intermediate, MUSCLE ACHING, 06/10/18) Medications: Current Medications Medications (Trade) Dose Ordered Sig/Hina Route PRN Reason Start Time Stop Time Status Last Admin Dose Admin Famotidine (Pepcid Vial) 20 mg 1X ONCE IVP 01/11/19 11:30 01/11/19 11:31 DC 01/11/19 11:44 Sodium Chloride 1,000 ml @ 1,000 mls/hr 1X ONCE IV 01/11/19 11:30 01/11/19 12:29 DC 01/11/19 11:45 Ondansetron HCl (Zofran) 4 mg 1X ONCE IV 01/11/19 11:30 01/11/19 11:31 DC 01/11/19 11:44 Iohexol (Omnipaque 300 Mg/ml) 50 ml 1X ONCE IV 01/11/19 12:15 01/11/19 12:16 DC 01/11/19 12:18 Levofloxacin/ Dextrose 100 ml @ 100 mls/hr 1X ONCE IV 01/11/19 14:30 01/11/19 15:29 DC 01/11/19 15:16 Imaging: Imaging: US IMPRESSION: 1. Hepatomegaly and diffuse hepatic steatosis. 2. Cholelithiasis without sonographic evidence of acute cholecystitis. CT A/P IMPRESSION: Nodular lung infiltrates are seen within both lower lobes and the inferior segment of the lingula. This could be due to inflammatory or infectious disease including the possibility of aspiration pneumonitis. LAP Band is present. There is a small hiatal hernia present versus dilatation of the distal esophagus related to tightness of the LAP Band. Sigmoid diverticulosis without diverticulitis. Cholelithiasis. CXR IMPRESSION: Left greater than right basilar nodular opacities may be infectious/inflammatory. 6-8 weeks after completion of medical therapy, a followup chest radiograph is recommended to document resolution and exclude underlying malignancy. PE: GEN: NAD HEENT: Atraumatic, PERRL LUNGS: diminished anteriorly HEART: mildly tachycardic ABD: NABS, S/ND/NT EXTREMITY: No edema SKIN: No rashes, no jaundice NEURO/PSYCH: A & O 3 A/P: A/P: Vomiting, weight loss Leukocytosis, abnormal chest imaging GERD Lap band in place CRC screen, h/o adenomatous polyps - last colonoscopy in 2005 Diverticulosis, hemorrhoids Cholelithiasis Hepatomegaly/hepatic steatosis Chronic back pain -- Needs follow-up w/ bariatric surgeon (Dr. Musa) to have lap band loosened - not available at [facility]. IV PPI. Could try clears as able. Screening colonoscopy as outpt. JILLIAN GREY Jan 11, 2019 16:32
--- NOTE | 2019-01-11 18:00 | NUR ---
Report received from RADHA Zaragoza in ER at approx 1500. Pt arrived on unit at approx 1630 by bed. Pt oriented to room and call light. Will continue to monitor pt.
[2019-01-11 19:00] VITALS: BP 122/61
[2019-01-11] MEDS: PANTOPRAZOLE IV PUSH 40 MG VIAL. IVP SCH (19:35)
[2019-01-11] MEDS ORDERED: HYDROmorphone 2 MG TABLET PO PRN (20:45)
[2019-01-11] MEDS: APIXABAN 2.5 MG TABLET. PO SCH (21:00)
[2019-01-11] MEDS ORDERED: ANTI-COAG MONITOR BY PHARMACY. MC PRN (21:00)
[2019-01-11] MEDS ORDERED: FAMOTIDINE 20 MG TABLET. PO SCH (21:00)
[2019-01-11] MEDS ORDERED: LINEZOLID 600 MG TABLET PO SCH (21:00)
[2019-01-11] MEDS ORDERED: traZODone 100 MG TABLET. PO SCH (21:00)
[2019-01-11] MEDS: DULoxetine HCL 30 MG CAPSULE.DR PO SCH (21:00)
[2019-01-11] MEDS: CARVEDILOL 6.25 MG TABLET. PO SCH (22:18)
[2019-01-11] MEDS: POTASSIUM CHLORIDE 10 MEQ TABLET.ER. PO SCH (22:18)
[2019-01-11 23:00] VITALS: BP 103/39
[2019-01-12 03:00] VITALS: BP 106/63
[2019-01-12] MEDS: PANTOPRAZOLE IV PUSH 40 MG VIAL. IVP SCH (06:35)
[2019-01-12 07:00] VITALS: BP 111/52
[2019-01-12 07:10] LABS: BASO # 0.1 x10^3/uL (0.0-0.2); BASO % 1 % (0-3); EOS # 0.1 x10^3/uL (0.0-0.7); EOS % 1 % (0-3); HEMATOCRIT 33.5 % (36.0-47.0); HEMOGLOBIN 10.9 g/dL (12.0-15.5); LYMPH # 1.2 x10^3/uL (1.0-4.8); LYMPH % 8 % (24-48); MEAN CORPUSCULAR HEMOGLOBIN 28 pg (25-35); MEAN CORPUSCULAR HGB CONC 33 g/dL (31-37); MEAN CORPUSCULAR VOLUME 87 fL (79-100); MONO # 0.5 x10^3/uL (0.0-1.1); MONO % 4 % (0-9); NEUT # 12.7 x10^3/uL (1.8-7.7); NEUT % 87 % (31-73); PLATELET COUNT 226 x10^3/uL (140-400); RED BLOOD COUNT 3.86 x10^6/uL (3.50-5.40); RED CELL DISTRIBUTION WIDTH 15.4 % (11.5-14.5); WHITE BLOOD COUNT 14.5 x10^3/uL (4.0-11.0)
[2019-01-12 07:37] LABS: ALBUMIN 2.4 g/dL (3.4-5.0); ALBUMIN/GLOBULIN RATIO 0.8 (1.0-1.7); CALCIUM 8.4 mg/dL (8.5-10.1); CREATININE 0.9 mg/dL (0.6-1.0); GFR 62.1; TOTAL BILIRUBIN 0.8 mg/dL (0.2-1.0); TOTAL PROTEIN 5.6 g/dL (6.4-8.2)
[2019-01-12 07:40] LABS: POTASSIUM 2.9 mmol/L (3.5-5.1)
[2019-01-12] MEDS ORDERED: POTASSIUM CHLORIDE 20 MEQ TABLET.ER. PO ONE (08:00)
[2019-01-12] MEDS ORDERED: EZETIMIBE 10 MG TABLET. PO SCH (08:00)
[2019-01-12] MEDS: POTASSIUM CHLORIDE 10 MEQ TABLET.ER. PO SCH ×2 (08:11→17:59)
[2019-01-12] MEDS: DULoxetine HCL 30 MG CAPSULE.DR PO SCH (08:12)
[2019-01-12] MEDS: APIXABAN 2.5 MG TABLET. PO SCH (08:12)
[2019-01-12] MEDS: CARVEDILOL 6.25 MG TABLET. PO SCH ×2 (08:16→17:00)
--- NOTE | 2019-01-12 08:50 | PDOC2 ---
[facility]A [facility]NELLY [employer] [employer] 01/12/19 0850: CONSULT Date of Consult Date of Consult DATE: 01/12/19 TIME: 08:42 Reason for Consult Reason for Consult: cholelithiasis Referring Physician Referring Physician: ER Identification/Chief Complaint Chief Complaint N/V Source Source: Chart review, Patient History of Present Illness Reason for Visit: Admitted with 6 weeks of nausea, emesis. poor intake of po, weight loss, fatigue. Reports it feels that things are sitting in epigastrium and then comes back up. Recently underwent EGD with Dr Burgess. No significant abdominal pain. Reports lap band 9 years ago, no adjustments to band in a long time. Past Medical History Cardiovascular: HTN Pulmonary: No pertinent hx GI: GERD, Other Heme/Onc: Cancer Hepatobiliary: No pertinent hx, Cholelithiasis Psych: Anxiety, Depression Rheumatologic: No pertinent hx Infectious disease: No pertinent hx Renal/: Renal Ca. Endocrine: No pertinent hx Past Surgical History Past Surgical History: Cataract Removal, Total knee replacement, Tonsillectomy, Hysterectomy, Other (lap band ) Family History Family History: Hypertension Social History <1 pack per day ALCOHOL: rare Drugs: None Lives: with Family Domestic Violence: Neg Current Problem List Problem List Problems Medical Problems: (1) Aspiration pneumonia Status: Acute (2) Cholelithiases Status: Acute (3) Nausea & vomiting Status: Acute Current Medications Current Medications Current Medications Famotidine (Pepcid Vial) 20 mg 1X ONCE IVP Last administered on 01/11/19at 11:44; Start 01/11/19 at 11:30; Stop 01/11/19 at 11:31; Status DC Sodium Chloride 1,000 ml @ 1,000 mls/hr 1X ONCE IV Last administered on 01/11/19at 11:45; Start 01/11/19 at 11:30; Stop 01/11/19 at 12:29; Status DC Ondansetron HCl (Zofran) 4 mg 1X ONCE IV Last administered on 01/11/19at 11:44; Start 01/11/19 at 11:30; Stop 01/11/19 at 11:31; Status DC Iohexol (Omnipaque 300 Mg/ml) 50 ml 1X ONCE IV Last administered on 01/11/19at 12:18; Start 01/11/19 at 12:15; Stop 01/11/19 at 12:16; Status DC Info (CONTRAST GIVEN -- Rx MONITORING) 1 each PRN DAILY PRN MC SEE COMMENTS; Start 01/11/19 at 12:15; Stop 01/13/19 at 12:14 Levofloxacin/ Dextrose 100 ml @ 100 mls/hr 1X ONCE IV Last administered on 01/11/19at 15:16; Start 01/11/19 at 14:30; Stop 01/11/19 at 15:29; Status DC Ondansetron HCl (Zofran) 4 mg PRN Q8HRS PRN IV NAUSEA/VOMITING; Start 01/11/19 at 15:30; Stop 01/12/19 at 15:29 Sodium Chloride 1,000 ml @ 75 mls/hr 1X ONCE IV Last administered on 01/11/19at 20:19; Start 01/11/19 at 15:30; Stop 01/12/19 at 04:49; Status DC Pantoprazole Sodium (PROTONIX VIAL for IV PUSH) 40 mg DAILYAC IVP Last administered on 01/12/19at 06:35; Start 01/11/19 at 17:00 Levofloxacin/ Dextrose 100 ml @ 100 mls/hr 1X ONCE IV ; Start 01/11/19 at 20:45; Stop 01/11/19 at 21:44; Status UNV Apixaban (Eliquis) 2.5 mg BID PO ; Start 01/11/19 at 21:00 Carvedilol (Coreg) 6.25 mg BIDWMEALS PO Last administered on 01/12/19at 08:16; Start 01/11/19 at 21:00 Ergocalciferol (Vitamin D2) 50,000 unit QSU PO ; Start 01/15/19 at 16:00 EZETIMIBE (Zetia) 10 mg DAILY08 PO Last administered on 01/12/19at 08:11; Start 01/12/19 at 08:00 Hydromorphone HCl (Dilaudid) 4 mg PRN Q4HRS PRN PO PAIN; Start 01/11/19 at 20:45 Linezolid (Zyvox) 600 mg BID PO ; Start 01/11/19 at 21:00; Status UNV Potassium Chloride (Klor-Con) 10 meq BIDWMEALS PO Last administered on 01/12/19at 08:11; Start 01/11/19 at 21:00 Trazodone HCl (Desyrel) 100 mg QHS PO ; Start 01/11/19 at 21:00 Duloxetine HCl (Cymbalta) 60 mg BID PO ; Start 01/11/19 at 21:00 Citalopram Hydrobromide (CeleXA) 40 mg DAILY PO ; Start 01/12/19 at 09:00 Famotidine (Pepcid) 20 mg QHS PO Last administered on 01/11/19at 22:14; Start 01/11/19 at 21:00 Info (Anti-Coagulation Monitoring By Pharmacy) 1 each PRN DAILY PRN MC SEE COMMENTS; Start 01/11/19 at 21:00 Potassium Chloride (Klor-Con) 40 meq 1X ONCE PO Last administered on 01/12/19at 08:11; Start 01/12/19 at 08:00; Stop 01/12/19 at 08:01; Status DC Active Scripts Active Zyvox (Linezolid) 600 Mg Tablet 600 Mg PO BID 6 Days Cipro (Ciprofloxacin Hcl) 250 Mg Tablet 500 Mg PO BID 6 Days Reported Triamterene-Hctz 75-50 Mg Tab (Triamterene/Hydrochlorothiazid) 1 Each Tablet 1 Tab PO DAILY Hydromorphone Hcl 4 Mg Tablet 4 Mg PO Q4HRS PRN Eliquis (Apixaban) 2.5 Mg Tablet 2.5 Mg PO BID Coreg (Carvedilol) 6.25 Mg Tablet 1 Tab PO BID Potassium Chloride 10 Meq Capsule.er 10 Meq PO UD Zetia (Ezetimibe) 10 Mg Tablet 1 Tab PO DAILY AM Vitamin D2 (Ergocalciferol (Vitamin D2)) 50,000 Unit Capsule 50,000 Unit PO QSU Lexapro (Escitalopram Oxalate) 20 Mg Tablet 40 Mg PO DAILY Trazodone Hcl 100 Mg Tablet 1 Tab PO QHS Ranitidine Hcl 300 Mg Capsule 1 Cap PO HS Cymbalta (Duloxetine Hcl) 60 Mg Capsule.dr 60 Mg PO BID Allergies Allergies: Coded Allergies: fentanyl (Verified Allergy, Severe, "went out of it", 06/10/18) Sulfa (Sulfonamide Antibiotics) (Verified Allergy, Intermediate, Rash, Nausea and Vomiting, 06/10/18) cephalexin (Verified Allergy, Intermediate, RASH, HIVES, NAUSEA/VOMITING, 01/12/19) Can take amoxicillin gabapentin (Verified Allergy, Intermediate, RASH, ITCHING, 06/10/18) hydrocodone (Verified Allergy, Intermediate, Tolerates hydromorphone, 05/17/18) metformin (Verified Allergy, Intermediate, 05/17/18) oxymorphone (Verified Allergy, Intermediate, 05/17/18) Tolerates hydromorphone bupropion (Verified Adverse Reaction, Intermediate, "MAKES HER CRAZY", 06/10/18) oxycodone (Verified Adverse Reaction, Intermediate, Nausea and Vomiting, 05/17/18) rosuvastatin (Verified Adverse Reaction, Intermediate, MUSCLE ACHING, 06/10/18) ROS General: YES: Chills, Fatigue, Appetite (loss) PSYCHOLOGICAL ROS: No: Anxiety, Depression Eyes: No Blurry vision, No Double vision HEENT: No: Heacaches, Sore Throat Hematological and Lymphatic: No: Bleeding Problems, Blood Clots Respiratory: No: Cough, Shortness of breath Cardiovascular: No Chest Pain, No Palpitations Gastrointestinal: Yes Other (see hpi) Genitourinary: No Dysuria, No Hematuria Musculoskeletal: No Joint Pain, No Muscle Pain Neurological: No Impaired Coord/balance, No Numbness/Tingling Skin: No Pruritus, No Rash Physical Exam General: Alert, Oriented X3, Cooperative, No acute distress HEENT: Atraumatic, PERRLA Lungs: Clear to auscultation, Normal air movement Heart: Regular rate, Normal S1, Normal S2 Abdomen: Soft, No tenderness Extremities: No clubbing, No cyanosis Skin: No rashes, No breakdown Neuro: Normal gait, Normal speech Psych/Mental Status: Mental status NL, Mood NL MUSCULOSKELETAL: No deformity, No swelling Vitals VITALS Vital Signs Date Time Temp Pulse Resp B/P (MAP) Pulse Ox O2 Delivery O2 Flow Rate FiO2 01/12/19 08:16 91 111/52 01/12/19 07:00 98.1 16 91 Room Air 98.1 Labs Labs Laboratory Tests Test 01/11/19 11:40 01/11/19 13:25 01/11/19 14:30 01/12/19 05:35 White Blood Count 16.6 x10^3/uL (4.0-11.0) 14.5 x10^3/uL (4.0-11.0) Red Blood Count 4.70 x10^6/uL (3.50-5.40) 3.86 x10^6/uL (3.50-5.40) Hemoglobin 13.2 g/dL (12.0-15.5) 10.9 g/dL (12.0-15.5) Hematocrit 40.3 % (36.0-47.0) 33.5 % (36.0-47.0) Mean Corpuscular Volume 86 fL (79-100) 87 fL (79-100) Mean Corpuscular Hemoglobin 28 pg (25-35) 28 pg (25-35) Mean Corpuscular Hemoglobin Concent 33 g/dL (31-37) 33 g/dL (31-37) Red Cell Distribution Width 15.2 % (11.5-14.5) 15.4 % (11.5-14.5) Platelet Count 315 x10^3/uL (140-400) 226 x10^3/uL (140-400) Neutrophils (%) (Auto) 90 % (31-73) 87 % (31-73) Lymphocytes (%) (Auto) 7 % (24-48) 8 % (24-48) Monocytes (%) (Auto) 3 % (0-9) 4 % (0-9) Eosinophils (%) (Auto) 1 % (0-3) 1 % (0-3) Basophils (%) (Auto) 0 % (0-3) 1 % (0-3) Neutrophils # (Auto) 14.9 x10^3/uL (1.8-7.7) 12.7 x10^3/uL (1.8-7.7) Lymphocytes # (Auto) 1.1 x10^3/uL (1.0-4.8) 1.2 x10^3/uL (1.0-4.8) Monocytes # (Auto) 0.5 x10^3/uL (0.0-1.1) 0.5 x10^3/uL (0.0-1.1) Eosinophils # (Auto) 0.1 x10^3/uL (0.0-0.7) 0.1 x10^3/uL (0.0-0.7) Basophils # (Auto) 0.1 x10^3/uL (0.0-0.2) 0.1 x10^3/uL (0.0-0.2) Segmented Neutrophils % 76 % (35-66) Band Neutrophils % 15 % (0-9) Lymphocytes % 4 % (24-48) Monocytes % 3 % (0-10) Basophils % 2 % (0-3) Platelet Estimate Adequate (ADEQUATE) Sodium Level 143 mmol/L (136-145) 144 mmol/L (136-145) Potassium Level 3.4 mmol/L (3.5-5.1) 2.9 mmol/L (3.5-5.1) Chloride Level 102 mmol/L (98-107) 106 mmol/L (98-107) Carbon Dioxide Level 34 mmol/L (21-32) 31 mmol/L (21-32) Anion Gap 7 (6-14) 7 (6-14) Blood Urea Nitrogen 23 mg/dL (7-20) 18 mg/dL (7-20) Creatinine 1.0 mg/dL (0.6-1.0) 0.9 mg/dL (0.6-1.0) Estimated GFR (Cockcroft-Gault) 55.0 62.1 BUN/Creatinine Ratio 23 (6-20) 20 (6-20) Glucose Level 138 mg/dL (70-99) 117 mg/dL (70-99) Calcium Level 9.5 mg/dL (8.5-10.1) 8.4 mg/dL (8.5-10.1) Total Bilirubin 0.7 mg/dL (0.2-1.0) 0.8 mg/dL (0.2-1.0) Aspartate Amino Transf (AST/SGOT) 10 U/L (15-37) 9 U/L (15-37) Alanine Aminotransferase (ALT/SGPT) 14 U/L (14-59) 13 U/L (14-59) Alkaline Phosphatase 61 U/L (46-116) 49 U/L (46-116) Total Protein 6.8 g/dL (6.4-8.2) 5.6 g/dL (6.4-8.2) Albumin 3.2 g/dL (3.4-5.0) 2.4 g/dL (3.4-5.0) Albumin/Globulin Ratio 0.9 (1.0-1.7) 0.8 (1.0-1.7) Lipase 103 U/L (73-393) Ethyl Alcohol Level < 10 mg/dL (0-10) Urine Collection Type Unknown Urine Color Yellow Urine Clarity Clear Urine pH 7.0 Urine Specific [place] >=1.030 Urine Protein Negative mg/dL (NEG-TRACE) Urine Glucose (UA) Negative mg/dL (NEG) Urine Ketones (Stick) Negative mg/dL (NEG) Urine Blood Negative (NEG) Urine Nitrite Negative (NEG) Urine Bilirubin Negative (NEG) Urine Urobilinogen Dipstick 0.2 mg/dL (0.2 mg/dL) Urine Leukocyte Esterase Negative (NEG) Urine RBC 1-2 /HPF (0-2) Urine WBC 1-4 /HPF (0-4) Urine Squamous Epithelial Cells Many /LPF Urine Bacteria Moderate /HPF (0-FEW) Urine Mucus Slight /LPF Urine Opiates Screen Neg (NEG) Urine Methadone Screen Neg (NEG) Urine Barbiturates Neg (NEG) Urine Phencyclidine Screen Neg (NEG) Urine Amphetamine/Methamphetamine Neg (NEG) Urine Benzodiazepines Screen Neg (NEG) Urine Cocaine Screen Neg (NEG) Urine Cannabinoids Screen Neg (NEG) Urine Ethyl Alcohol Neg (NEG) Lactic Acid Level 1.6 mmol/L (0.4-2.0) Laboratory Tests Test 01/11/19 11:40 01/11/19 13:25 01/11/19 14:30 01/12/19 05:35 White Blood Count 16.6 x10^3/uL (4.0-11.0) 14.5 x10^3/uL (4.0-11.0) Red Blood Count 4.70 x10^6/uL (3.50-5.40) 3.86 x10^6/uL (3.50-5.40) Hemoglobin 13.2 g/dL (12.0-15.5) 10.9 g/dL (12.0-15.5) Hematocrit 40.3 % (36.0-47.0) 33.5 % (36.0-47.0) Mean Corpuscular Volume 86 fL (79-100) 87 fL (79-100) Mean Corpuscular Hemoglobin 28 pg (25-35) 28 pg (25-35) Mean Corpuscular Hemoglobin Concent 33 g/dL (31-37) 33 g/dL (31-37) Red Cell Distribution Width 15.2 % (11.5-14.5) 15.4 % (11.5-14.5) Platelet Count 315 x10^3/uL (140-400) 226 x10^3/uL (140-400) Neutrophils (%) (Auto) 90 % (31-73) 87 % (31-73) Lymphocytes (%) (Auto) 7 % (24-48) 8 % (24-48) Monocytes (%) (Auto) 3 % (0-9) 4 % (0-9) Eosinophils (%) (Auto) 1 % (0-3) 1 % (0-3) Basophils (%) (Auto) 0 % (0-3) 1 % (0-3) Neutrophils # (Auto) 14.9 x10^3/uL (1.8-7.7) 12.7 x10^3/uL (1.8-7.7) Lymphocytes # (Auto) 1.1 x10^3/uL (1.0-4.8) 1.2 x10^3/uL (1.0-4.8) Monocytes # (Auto) 0.5 x10^3/uL (0.0-1.1) 0.5 x10^3/uL (0.0-1.1) Eosinophils # (Auto) 0.1 x10^3/uL (0.0-0.7) 0.1 x10^3/uL (0.0-0.7) Basophils # (Auto) 0.1 x10^3/uL (0.0-0.2) 0.1 x10^3/uL (0.0-0.2) Segmented Neutrophils % 76 % (35-66) Band Neutrophils % 15 % (0-9) Lymphocytes % 4 % (24-48) Monocytes % 3 % (0-10) Basophils % 2 % (0-3) Platelet Estimate Adequate (ADEQUATE) Sodium Level 143 mmol/L (136-145) 144 mmol/L (136-145) Potassium Level 3.4 mmol/L (3.5-5.1) 2.9 mmol/L (3.5-5.1) Chloride Level 102 mmol/L (98-107) 106 mmol/L (98-107) Carbon Dioxide Level 34 mmol/L (21-32) 31 mmol/L (21-32) Anion Gap 7 (6-14) 7 (6-14) Blood Urea Nitrogen 23 mg/dL (7-20) 18 mg/dL (7-20) Creatinine 1.0 mg/dL (0.6-1.0) 0.9 mg/dL (0.6-1.0) Estimated GFR (Cockcroft-Gault) 55.0 62.1 BUN/Creatinine Ratio 23 (6-20) 20 (6-20) Glucose Level 138 mg/dL (70-99) 117 mg/dL (70-99) Calcium Level 9.5 mg/dL (8.5-10.1) 8.4 mg/dL (8.5-10.1) Total Bilirubin 0.7 mg/dL (0.2-1.0) 0.8 mg/dL (0.2-1.0) Aspartate Amino Transf (AST/SGOT) 10 U/L (15-37) 9 U/L (15-37) Alanine Aminotransferase (ALT/SGPT) 14 U/L (14-59) 13 U/L (14-59) Alkaline Phosphatase 61 U/L (46-116) 49 U/L (46-116) Total Protein 6.8 g/dL (6.4-8.2) 5.6 g/dL (6.4-8.2) Albumin 3.2 g/dL (3.4-5.0) 2.4 g/dL (3.4-5.0) Albumin/Globulin Ratio 0.9 (1.0-1.7) 0.8 (1.0-1.7) Lipase 103 U/L (73-393) Ethyl Alcohol Level < 10 mg/dL (0-10) Urine Collection Type Unknown Urine Color Yellow Urine Clarity Clear Urine pH 7.0 Urine Specific [place] >=1.030 Urine Protein Negative mg/dL (NEG-TRACE) Urine Glucose (UA) Negative mg/dL (NEG) Urine Ketones (Stick) Negative mg/dL (NEG) Urine Blood Negative (NEG) Urine Nitrite Negative (NEG) Urine Bilirubin Negative (NEG) Urine Urobilinogen Dipstick 0.2 mg/dL (0.2 mg/dL) Urine Leukocyte Esterase Negative (NEG) Urine RBC 1-2 /HPF (0-2) Urine WBC 1-4 /HPF (0-4) Urine Squamous Epithelial Cells Many /LPF Urine Bacteria Moderate /HPF (0-FEW) Urine Mucus Slight /LPF Urine Opiates Screen Neg (NEG) Urine Methadone Screen Neg (NEG) Urine Barbiturates Neg (NEG) Urine Phencyclidine Screen Neg (NEG) Urine Amphetamine/Methamphetamine Neg (NEG) Urine Benzodiazepines Screen Neg (NEG) Urine Cocaine Screen Neg (NEG) Urine Cannabinoids Screen Neg (NEG) Urine Ethyl Alcohol Neg (NEG) Lactic Acid Level 1.6 mmol/L (0.4-2.0) Images Images imaging reviewed Assessment/Plan Assessment/Plan cholelithiasis, without findings of cholecystitis ? tightness of lap band 6 weeks of n/v ? possible asp pneumonia will review with bariatrics at [facility] JANEL CRESPO MD 01/12/19 1112: CONSULT Assessment/Plan Assessment/Plan pt seen as above spoke with Dr Busch ([facility]) will Tx to [facility] for care by the bariatric surgeons who placed her lap band Thanks for consult ELA DONNELLY APRN Jan 12, 2019 08:50 JANEL CRESPO MD Jan 12, 2019 11:12
[2019-01-12] MEDS ORDERED: CITALOPRAM 20 MG TABLET. PO SCH (09:00)
[2019-01-12] MEDS ORDERED: FLU VAX QS 2019-20 (36MOS+)/PF 0.5 ML SYRINGE. VAX IM ONE (09:45)
--- NOTE | 2019-01-12 10:38 | PDOC ---
Infectious Disease Note Vital Sign Vital Signs Vital Signs Date Time Temp Pulse Resp B/P (MAP) Pulse Ox O2 Delivery O2 Flow Rate FiO2 01/12/19 08:16 91 111/52 01/12/19 07:00 98.1 16 91 Room Air 98.1 Labs Lab Laboratory Tests Test 01/11/19 11:40 01/11/19 13:25 01/11/19 14:30 01/12/19 05:35 White Blood Count 16.6 x10^3/uL (4.0-11.0) 14.5 x10^3/uL (4.0-11.0) Red Blood Count 4.70 x10^6/uL (3.50-5.40) 3.86 x10^6/uL (3.50-5.40) Hemoglobin 13.2 g/dL (12.0-15.5) 10.9 g/dL (12.0-15.5) Hematocrit 40.3 % (36.0-47.0) 33.5 % (36.0-47.0) Mean Corpuscular Volume 86 fL (79-100) 87 fL (79-100) Mean Corpuscular Hemoglobin 28 pg (25-35) 28 pg (25-35) Mean Corpuscular Hemoglobin Concent 33 g/dL (31-37) 33 g/dL (31-37) Red Cell Distribution Width 15.2 % (11.5-14.5) 15.4 % (11.5-14.5) Platelet Count 315 x10^3/uL (140-400) 226 x10^3/uL (140-400) Neutrophils (%) (Auto) 90 % (31-73) 87 % (31-73) Lymphocytes (%) (Auto) 7 % (24-48) 8 % (24-48) Monocytes (%) (Auto) 3 % (0-9) 4 % (0-9) Eosinophils (%) (Auto) 1 % (0-3) 1 % (0-3) Basophils (%) (Auto) 0 % (0-3) 1 % (0-3) Neutrophils # (Auto) 14.9 x10^3/uL (1.8-7.7) 12.7 x10^3/uL (1.8-7.7) Lymphocytes # (Auto) 1.1 x10^3/uL (1.0-4.8) 1.2 x10^3/uL (1.0-4.8) Monocytes # (Auto) 0.5 x10^3/uL (0.0-1.1) 0.5 x10^3/uL (0.0-1.1) Eosinophils # (Auto) 0.1 x10^3/uL (0.0-0.7) 0.1 x10^3/uL (0.0-0.7) Basophils # (Auto) 0.1 x10^3/uL (0.0-0.2) 0.1 x10^3/uL (0.0-0.2) Segmented Neutrophils % 76 % (35-66) Band Neutrophils % 15 % (0-9) Lymphocytes % 4 % (24-48) Monocytes % 3 % (0-10) Basophils % 2 % (0-3) Platelet Estimate Adequate (ADEQUATE) Sodium Level 143 mmol/L (136-145) 144 mmol/L (136-145) Potassium Level 3.4 mmol/L (3.5-5.1) 2.9 mmol/L (3.5-5.1) Chloride Level 102 mmol/L (98-107) 106 mmol/L (98-107) Carbon Dioxide Level 34 mmol/L (21-32) 31 mmol/L (21-32) Anion Gap 7 (6-14) 7 (6-14) Blood Urea Nitrogen 23 mg/dL (7-20) 18 mg/dL (7-20) Creatinine 1.0 mg/dL (0.6-1.0) 0.9 mg/dL (0.6-1.0) Estimated GFR (Cockcroft-Gault) 55.0 62.1 BUN/Creatinine Ratio 23 (6-20) 20 (6-20) Glucose Level 138 mg/dL (70-99) 117 mg/dL (70-99) Calcium Level 9.5 mg/dL (8.5-10.1) 8.4 mg/dL (8.5-10.1) Total Bilirubin 0.7 mg/dL (0.2-1.0) 0.8 mg/dL (0.2-1.0) Aspartate Amino Transf (AST/SGOT) 10 U/L (15-37) 9 U/L (15-37) Alanine Aminotransferase (ALT/SGPT) 14 U/L (14-59) 13 U/L (14-59) Alkaline Phosphatase 61 U/L (46-116) 49 U/L (46-116) Total Protein 6.8 g/dL (6.4-8.2) 5.6 g/dL (6.4-8.2) Albumin 3.2 g/dL (3.4-5.0) 2.4 g/dL (3.4-5.0) Albumin/Globulin Ratio 0.9 (1.0-1.7) 0.8 (1.0-1.7) Lipase 103 U/L (73-393) Ethyl Alcohol Level < 10 mg/dL (0-10) Urine Collection Type Unknown Urine Color Yellow Urine Clarity Clear Urine pH 7.0 Urine Specific [place] >=1.030 Urine Protein Negative mg/dL (NEG-TRACE) Urine Glucose (UA) Negative mg/dL (NEG) Urine Ketones (Stick) Negative mg/dL (NEG) Urine Blood Negative (NEG) Urine Nitrite Negative (NEG) Urine Bilirubin Negative (NEG) Urine Urobilinogen Dipstick 0.2 mg/dL (0.2 mg/dL) Urine Leukocyte Esterase Negative (NEG) Urine RBC 1-2 /HPF (0-2) Urine WBC 1-4 /HPF (0-4) Urine Squamous Epithelial Cells Many /LPF Urine Bacteria Moderate /HPF (0-FEW) Urine Mucus Slight /LPF Urine Opiates Screen Neg (NEG) Urine Methadone Screen Neg (NEG) Urine Barbiturates Neg (NEG) Urine Phencyclidine Screen Neg (NEG) Urine Amphetamine/Methamphetamine Neg (NEG) Urine Benzodiazepines Screen Neg (NEG) Urine Cocaine Screen Neg (NEG) Urine Cannabinoids Screen Neg (NEG) Urine Ethyl Alcohol Neg (NEG) Lactic Acid Level 1.6 mmol/L (0.4-2.0) Objective Assessment Fever N/V Pneumonitis ? aspiration abx allergies - sulfa -true reaction - Cephalexin - nausea but has tolerated Amox ? Lap band malfunction Solitary kidney Plan Plan of Care Begin Zosyn - She believes Meropenem caused diarrhea F/u labs and cults ? need to transfer to [facility] for lap band attention D/w Judith CANTU - Gen surg D/w nursing Thank you # [id number] MARIA INES ZARAGOZA MD Jan 12, 2019 10:38
--- NOTE | 2019-01-12 10:41 | PDOC ---
PROGRESS NOTES History of Present Illness History of Present Illness VTE Prophylaxis Ordered VTE Prophylaxis Devices: Yes VTE Pharmacological Prophylaxi: Yes Assessment/Plan Assessment/Plan IMPRESSION: INTRACTABLE VOMITING WITH WEIGHT LOSS Nodular lung infiltrates are seen within both lower lobes and the inferior segment of the lingula. possibility of aspiration pneumonitis., BUT NO FEVER, HOWEVER leukocytosis is noted ON CT LAP Band is present. There is a small hiatal hernia present versus dilatation of the distal esophagus related to tightness of the LAP Band. on EGD 01/04/19 (Dr. Dickerson) for epigastric pain, n/v: Grade A esophagitis, small hiatal hernia, normal duodenum. GERD obesity LAP BAND malfunction suspected HYPOKALEMIA, REPLACED plan admit iv fluid support CONSULT DR DICKERSON ID CONSULT IV Levaquin 500mg x 1 home meds transfer to [facility] today YOLANDA CASE MGT HELPING D/W DR CRESPO 37 min pt exam, chart review D/C PLANNING , > 50% of time spent with exam, chart review, pt care coordination Vitals Vitals Vital Signs Date Time Temp Pulse Resp B/P (MAP) Pulse Ox O2 Delivery O2 Flow Rate FiO2 01/12/19 08:16 91 111/52 01/12/19 07:00 98.1 16 91 Room Air 98.1 Physical Exam General: Alert, Oriented X3, Cooperative, No acute distress Heart: Regular rate, Normal S1, Normal S2 Lungs: Clear Abdomen: Normal bowel sounds, Soft, No tenderness Extremities: No clubbing, No cyanosis Skin: No rashes, No breakdown Labs LABS Laboratory Tests Test 01/11/19 11:40 01/11/19 13:25 01/11/19 14:30 01/12/19 05:35 White Blood Count 16.6 x10^3/uL (4.0-11.0) 14.5 x10^3/uL (4.0-11.0) Red Blood Count 4.70 x10^6/uL (3.50-5.40) 3.86 x10^6/uL (3.50-5.40) Hemoglobin 13.2 g/dL (12.0-15.5) 10.9 g/dL (12.0-15.5) Hematocrit 40.3 % (36.0-47.0) 33.5 % (36.0-47.0) Mean Corpuscular Volume 86 fL (79-100) 87 fL (79-100) Mean Corpuscular Hemoglobin 28 pg (25-35) 28 pg (25-35) Mean Corpuscular Hemoglobin Concent 33 g/dL (31-37) 33 g/dL (31-37) Red Cell Distribution Width 15.2 % (11.5-14.5) 15.4 % (11.5-14.5) Platelet Count 315 x10^3/uL (140-400) 226 x10^3/uL (140-400) Neutrophils (%) (Auto) 90 % (31-73) 87 % (31-73) Lymphocytes (%) (Auto) 7 % (24-48) 8 % (24-48) Monocytes (%) (Auto) 3 % (0-9) 4 % (0-9) Eosinophils (%) (Auto) 1 % (0-3) 1 % (0-3) Basophils (%) (Auto) 0 % (0-3) 1 % (0-3) Neutrophils # (Auto) 14.9 x10^3/uL (1.8-7.7) 12.7 x10^3/uL (1.8-7.7) Lymphocytes # (Auto) 1.1 x10^3/uL (1.0-4.8) 1.2 x10^3/uL (1.0-4.8) Monocytes # (Auto) 0.5 x10^3/uL (0.0-1.1) 0.5 x10^3/uL (0.0-1.1) Eosinophils # (Auto) 0.1 x10^3/uL (0.0-0.7) 0.1 x10^3/uL (0.0-0.7) Basophils # (Auto) 0.1 x10^3/uL (0.0-0.2) 0.1 x10^3/uL (0.0-0.2) Segmented Neutrophils % 76 % (35-66) Band Neutrophils % 15 % (0-9) Lymphocytes % 4 % (24-48) Monocytes % 3 % (0-10) Basophils % 2 % (0-3) Platelet Estimate Adequate (ADEQUATE) Sodium Level 143 mmol/L (136-145) 144 mmol/L (136-145) Potassium Level 3.4 mmol/L (3.5-5.1) 2.9 mmol/L (3.5-5.1) Chloride Level 102 mmol/L (98-107) 106 mmol/L (98-107) Carbon Dioxide Level 34 mmol/L (21-32) 31 mmol/L (21-32) Anion Gap 7 (6-14) 7 (6-14) Blood Urea Nitrogen 23 mg/dL (7-20) 18 mg/dL (7-20) Creatinine 1.0 mg/dL (0.6-1.0) 0.9 mg/dL (0.6-1.0) Estimated GFR (Cockcroft-Gault) 55.0 62.1 BUN/Creatinine Ratio 23 (6-20) 20 (6-20) Glucose Level 138 mg/dL (70-99) 117 mg/dL (70-99) Calcium Level 9.5 mg/dL (8.5-10.1) 8.4 mg/dL (8.5-10.1) Total Bilirubin 0.7 mg/dL (0.2-1.0) 0.8 mg/dL (0.2-1.0) Aspartate Amino Transf (AST/SGOT) 10 U/L (15-37) 9 U/L (15-37) Alanine Aminotransferase (ALT/SGPT) 14 U/L (14-59) 13 U/L (14-59) Alkaline Phosphatase 61 U/L (46-116) 49 U/L (46-116) Total Protein 6.8 g/dL (6.4-8.2) 5.6 g/dL (6.4-8.2) Albumin 3.2 g/dL (3.4-5.0) 2.4 g/dL (3.4-5.0) Albumin/Globulin Ratio 0.9 (1.0-1.7) 0.8 (1.0-1.7) Lipase 103 U/L (73-393) Ethyl Alcohol Level < 10 mg/dL (0-10) Urine Collection Type Unknown Urine Color Yellow Urine Clarity Clear Urine pH 7.0 Urine Specific [place] >=1.030 Urine Protein Negative mg/dL (NEG-TRACE) Urine Glucose (UA) Negative mg/dL (NEG) Urine Ketones (Stick) Negative mg/dL (NEG) Urine Blood Negative (NEG) Urine Nitrite Negative (NEG) Urine Bilirubin Negative (NEG) Urine Urobilinogen Dipstick 0.2 mg/dL (0.2 mg/dL) Urine Leukocyte Esterase Negative (NEG) Urine RBC 1-2 /HPF (0-2) Urine WBC 1-4 /HPF (0-4) Urine Squamous Epithelial Cells Many /LPF Urine Bacteria Moderate /HPF (0-FEW) Urine Mucus Slight /LPF Urine Opiates Screen Neg (NEG) Urine Methadone Screen Neg (NEG) Urine Barbiturates Neg (NEG) Urine Phencyclidine Screen Neg (NEG) Urine Amphetamine/Methamphetamine Neg (NEG) Urine Benzodiazepines Screen Neg (NEG) Urine Cocaine Screen Neg (NEG) Urine Cannabinoids Screen Neg (NEG) Urine Ethyl Alcohol Neg (NEG) Lactic Acid Level 1.6 mmol/L (0.4-2.0) Assessment and Plan Assessmemt and Plan Problems Medical Problems: (1) Aspiration pneumonia Status: Acute (2) Cholelithiases Status: Acute (3) Nausea & vomiting Status: Acute Comment Review of Relevant I have reviewed the following items dieter (where applicable) has been applied. Labs Laboratory Tests Test 01/11/19 11:40 01/11/19 13:25 01/11/19 14:30 01/12/19 05:35 White Blood Count 16.6 x10^3/uL (4.0-11.0) 14.5 x10^3/uL (4.0-11.0) Red Blood Count 4.70 x10^6/uL (3.50-5.40) 3.86 x10^6/uL (3.50-5.40) Hemoglobin 13.2 g/dL (12.0-15.5) 10.9 g/dL (12.0-15.5) Hematocrit 40.3 % (36.0-47.0) 33.5 % (36.0-47.0) Mean Corpuscular Volume 86 fL (79-100) 87 fL (79-100) Mean Corpuscular Hemoglobin 28 pg (25-35) 28 pg (25-35) Mean Corpuscular Hemoglobin Concent 33 g/dL (31-37) 33 g/dL (31-37) Red Cell Distribution Width 15.2 % (11.5-14.5) 15.4 % (11.5-14.5) Platelet Count 315 x10^3/uL (140-400) 226 x10^3/uL (140-400) Neutrophils (%) (Auto) 90 % (31-73) 87 % (31-73) Lymphocytes (%) (Auto) 7 % (24-48) 8 % (24-48) Monocytes (%) (Auto) 3 % (0-9) 4 % (0-9) Eosinophils (%) (Auto) 1 % (0-3) 1 % (0-3) Basophils (%) (Auto) 0 % (0-3) 1 % (0-3) Neutrophils # (Auto) 14.9 x10^3/uL (1.8-7.7) 12.7 x10^3/uL (1.8-7.7) Lymphocytes # (Auto) 1.1 x10^3/uL (1.0-4.8) 1.2 x10^3/uL (1.0-4.8) Monocytes # (Auto) 0.5 x10^3/uL (0.0-1.1) 0.5 x10^3/uL (0.0-1.1) Eosinophils # (Auto) 0.1 x10^3/uL (0.0-0.7) 0.1 x10^3/uL (0.0-0.7) Basophils # (Auto) 0.1 x10^3/uL (0.0-0.2) 0.1 x10^3/uL (0.0-0.2) Segmented Neutrophils % 76 % (35-66) Band Neutrophils % 15 % (0-9) Lymphocytes % 4 % (24-48) Monocytes % 3 % (0-10) Basophils % 2 % (0-3) Platelet Estimate Adequate (ADEQUATE) Sodium Level 143 mmol/L (136-145) 144 mmol/L (136-145) Potassium Level 3.4 mmol/L (3.5-5.1) 2.9 mmol/L (3.5-5.1) Chloride Level 102 mmol/L (98-107) 106 mmol/L (98-107) Carbon Dioxide Level 34 mmol/L (21-32) 31 mmol/L (21-32) Anion Gap 7 (6-14) 7 (6-14) Blood Urea Nitrogen 23 mg/dL (7-20) 18 mg/dL (7-20) Creatinine 1.0 mg/dL (0.6-1.0) 0.9 mg/dL (0.6-1.0) Estimated GFR (Cockcroft-Gault) 55.0 62.1 BUN/Creatinine Ratio 23 (6-20) 20 (6-20) Glucose Level 138 mg/dL (70-99) 117 mg/dL (70-99) Calcium Level 9.5 mg/dL (8.5-10.1) 8.4 mg/dL (8.5-10.1) Total Bilirubin 0.7 mg/dL (0.2-1.0) 0.8 mg/dL (0.2-1.0) Aspartate Amino Transf (AST/SGOT) 10 U/L (15-37) 9 U/L (15-37) Alanine Aminotransferase (ALT/SGPT) 14 U/L (14-59) 13 U/L (14-59) Alkaline Phosphatase 61 U/L (46-116) 49 U/L (46-116) Total Protein 6.8 g/dL (6.4-8.2) 5.6 g/dL (6.4-8.2) Albumin 3.2 g/dL (3.4-5.0) 2.4 g/dL (3.4-5.0) Albumin/Globulin Ratio 0.9 (1.0-1.7) 0.8 (1.0-1.7) Lipase 103 U/L (73-393) Ethyl Alcohol Level < 10 mg/dL (0-10) Urine Collection Type Unknown Urine Color Yellow Urine Clarity Clear Urine pH 7.0 Urine Specific [place] >=1.030 Urine Protein Negative mg/dL (NEG-TRACE) Urine Glucose (UA) Negative mg/dL (NEG) Urine Ketones (Stick) Negative mg/dL (NEG) Urine Blood Negative (NEG) Urine Nitrite Negative (NEG) Urine Bilirubin Negative (NEG) Urine Urobilinogen Dipstick 0.2 mg/dL (0.2 mg/dL) Urine Leukocyte Esterase Negative (NEG) Urine RBC 1-2 /HPF (0-2) Urine WBC 1-4 /HPF (0-4) Urine Squamous Epithelial Cells Many /LPF Urine Bacteria Moderate /HPF (0-FEW) Urine Mucus Slight /LPF Urine Opiates Screen Neg (NEG) Urine Methadone Screen Neg (NEG) Urine Barbiturates Neg (NEG) Urine Phencyclidine Screen Neg (NEG) Urine Amphetamine/Methamphetamine Neg (NEG) Urine Benzodiazepines Screen Neg (NEG) Urine Cocaine Screen Neg (NEG) Urine Cannabinoids Screen Neg (NEG) Urine Ethyl Alcohol Neg (NEG) Lactic Acid Level 1.6 mmol/L (0.4-2.0) Laboratory Tests Test 01/11/19 11:40 01/11/19 13:25 01/11/19 14:30 01/12/19 05:35 White Blood Count 16.6 x10^3/uL (4.0-11.0) 14.5 x10^3/uL (4.0-11.0) Red Blood Count 4.70 x10^6/uL (3.50-5.40) 3.86 x10^6/uL (3.50-5.40) Hemoglobin 13.2 g/dL (12.0-15.5) 10.9 g/dL (12.0-15.5) Hematocrit 40.3 % (36.0-47.0) 33.5 % (36.0-47.0) Mean Corpuscular Volume 86 fL (79-100) 87 fL (79-100) Mean Corpuscular Hemoglobin 28 pg (25-35) 28 pg (25-35) Mean Corpuscular Hemoglobin Concent 33 g/dL (31-37) 33 g/dL (31-37) Red Cell Distribution Width 15.2 % (11.5-14.5) 15.4 % (11.5-14.5) Platelet Count 315 x10^3/uL (140-400) 226 x10^3/uL (140-400) Neutrophils (%) (Auto) 90 % (31-73) 87 % (31-73) Lymphocytes (%) (Auto) 7 % (24-48) 8 % (24-48) Monocytes (%) (Auto) 3 % (0-9) 4 % (0-9) Eosinophils (%) (Auto) 1 % (0-3) 1 % (0-3) Basophils (%) (Auto) 0 % (0-3) 1 % (0-3) Neutrophils # (Auto) 14.9 x10^3/uL (1.8-7.7) 12.7 x10^3/uL (1.8-7.7) Lymphocytes # (Auto) 1.1 x10^3/uL (1.0-4.8) 1.2 x10^3/uL (1.0-4.8) Monocytes # (Auto) 0.5 x10^3/uL (0.0-1.1) 0.5 x10^3/uL (0.0-1.1) Eosinophils # (Auto) 0.1 x10^3/uL (0.0-0.7) 0.1 x10^3/uL (0.0-0.7) Basophils # (Auto) 0.1 x10^3/uL (0.0-0.2) 0.1 x10^3/uL (0.0-0.2) Segmented Neutrophils % 76 % (35-66) Band Neutrophils % 15 % (0-9) Lymphocytes % 4 % (24-48) Monocytes % 3 % (0-10) Basophils % 2 % (0-3) Platelet Estimate Adequate (ADEQUATE) Sodium Level 143 mmol/L (136-145) 144 mmol/L (136-145) Potassium Level 3.4 mmol/L (3.5-5.1) 2.9 mmol/L (3.5-5.1) Chloride Level 102 mmol/L (98-107) 106 mmol/L (98-107) Carbon Dioxide Level 34 mmol/L (21-32) 31 mmol/L (21-32) Anion Gap 7 (6-14) 7 (6-14) Blood Urea Nitrogen 23 mg/dL (7-20) 18 mg/dL (7-20) Creatinine 1.0 mg/dL (0.6-1.0) 0.9 mg/dL (0.6-1.0) Estimated GFR (Cockcroft-Gault) 55.0 62.1 BUN/Creatinine Ratio 23 (6-20) 20 (6-20) Glucose Level 138 mg/dL (70-99) 117 mg/dL (70-99) Calcium Level 9.5 mg/dL (8.5-10.1) 8.4 mg/dL (8.5-10.1) Total Bilirubin 0.7 mg/dL (0.2-1.0) 0.8 mg/dL (0.2-1.0) Aspartate Amino Transf (AST/SGOT) 10 U/L (15-37) 9 U/L (15-37) Alanine Aminotransferase (ALT/SGPT) 14 U/L (14-59) 13 U/L (14-59) Alkaline Phosphatase 61 U/L (46-116) 49 U/L (46-116) Total Protein 6.8 g/dL (6.4-8.2) 5.6 g/dL (6.4-8.2) Albumin 3.2 g/dL (3.4-5.0) 2.4 g/dL (3.4-5.0) Albumin/Globulin Ratio 0.9 (1.0-1.7) 0.8 (1.0-1.7) Lipase 103 U/L (73-393) Ethyl Alcohol Level < 10 mg/dL (0-10) Urine Collection Type Unknown Urine Color Yellow Urine Clarity Clear Urine pH 7.0 Urine Specific [place] >=1.030 Urine Protein Negative mg/dL (NEG-TRACE) Urine Glucose (UA) Negative mg/dL (NEG) Urine Ketones (Stick) Negative mg/dL (NEG) Urine Blood Negative (NEG) Urine Nitrite Negative (NEG) Urine Bilirubin Negative (NEG) Urine Urobilinogen Dipstick 0.2 mg/dL (0.2 mg/dL) Urine Leukocyte Esterase Negative (NEG) Urine RBC 1-2 /HPF (0-2) Urine WBC 1-4 /HPF (0-4) Urine Squamous Epithelial Cells Many /LPF Urine Bacteria Moderate /HPF (0-FEW) Urine Mucus Slight /LPF Urine Opiates Screen Neg (NEG) Urine Methadone Screen Neg (NEG) Urine Barbiturates Neg (NEG) Urine Phencyclidine Screen Neg (NEG) Urine Amphetamine/Methamphetamine Neg (NEG) Urine Benzodiazepines Screen Neg (NEG) Urine Cocaine Screen Neg (NEG) Urine Cannabinoids Screen Neg (NEG) Urine Ethyl Alcohol Neg (NEG) Lactic Acid Level 1.6 mmol/L (0.4-2.0) Medications Current Medications Famotidine (Pepcid Vial) 20 mg 1X ONCE IVP Last administered on 01/11/19at 11:44; Start 01/11/19 at 11:30; Stop 01/11/19 at 11:31; Status DC Sodium Chloride 1,000 ml @ 1,000 mls/hr 1X ONCE IV Last administered on 01/11/19at 11:45; Start 01/11/19 at 11:30; Stop 01/11/19 at 12:29; Status DC Ondansetron HCl (Zofran) 4 mg 1X ONCE IV Last administered on 01/11/19at 11:44; Start 01/11/19 at 11:30; Stop 01/11/19 at 11:31; Status DC Iohexol (Omnipaque 300 Mg/ml) 50 ml 1X ONCE IV Last administered on 01/11/19at 12:18; Start 01/11/19 at 12:15; Stop 01/11/19 at 12:16; Status DC Info (CONTRAST GIVEN -- Rx MONITORING) 1 each PRN DAILY PRN MC SEE COMMENTS; Start 01/11/19 at 12:15; Stop 01/13/19 at 12:14 Levofloxacin/ Dextrose 100 ml @ 100 mls/hr 1X ONCE IV Last administered on 01/11/19at 15:16; Start 01/11/19 at 14:30; Stop 01/11/19 at 15:29; Status DC Ondansetron HCl (Zofran) 4 mg PRN Q8HRS PRN IV NAUSEA/VOMITING; Start 01/11/19 at 15:30; Stop 01/12/19 at 15:29 Sodium Chloride 1,000 ml @ 75 mls/hr 1X ONCE IV Last administered on 01/11/19at 20:19; Start 01/11/19 at 15:30; Stop 01/12/19 at 04:49; Status DC Pantoprazole Sodium (PROTONIX VIAL for IV PUSH) 40 mg DAILYAC IVP Last administered on 01/12/19at 06:35; Start 01/11/19 at 17:00 Levofloxacin/ Dextrose 100 ml @ 100 mls/hr 1X ONCE IV ; Start 01/11/19 at 20:45; Stop 01/11/19 at 21:44; Status UNV Apixaban (Eliquis) 2.5 mg BID PO ; Start 01/11/19 at 21:00 Carvedilol (Coreg) 6.25 mg BIDWMEALS PO Last administered on 01/12/19at 08:16; Start 01/11/19 at 21:00 Ergocalciferol (Vitamin D2) 50,000 unit QSU PO ; Start 01/15/19 at 16:00 EZETIMIBE (Zetia) 10 mg DAILY08 PO Last administered on 01/12/19at 08:11; Start 01/12/19 at 08:00 Hydromorphone HCl (Dilaudid) 4 mg PRN Q4HRS PRN PO PAIN; Start 01/11/19 at 20:45 Linezolid (Zyvox) 600 mg BID PO ; Start 01/11/19 at 21:00; Status UNV Potassium Chloride (Klor-Con) 10 meq BIDWMEALS PO Last administered on 01/12/19at 08:11; Start 01/11/19 at 21:00 Trazodone HCl (Desyrel) 100 mg QHS PO ; Start 01/11/19 at 21:00 Duloxetine HCl (Cymbalta) 60 mg BID PO ; Start 01/11/19 at 21:00 Citalopram Hydrobromide (CeleXA) 40 mg DAILY PO ; Start 01/12/19 at 09:00 Famotidine (Pepcid) 20 mg QHS PO Last administered on 01/11/19at 22:14; Start 01/11/19 at 21:00 Info (Anti-Coagulation Monitoring By Pharmacy) 1 each PRN DAILY PRN MC SEE COMMENTS; Start 01/11/19 at 21:00 Potassium Chloride (Klor-Con) 40 meq 1X ONCE PO Last administered on 01/12/19at 08:11; Start 01/12/19 at 08:00; Stop 01/12/19 at 08:01; Status DC Influenza Virus Vaccine Quadrival (Afluria Quad 2019-20 (3yr Up) Syringe) 0.5 ml ONCE ONCE VAX IM ; Start 01/12/19 at 09:45; Stop 01/12/19 at 09:52; Status DC Piperacillin Sod/ Tazobactam Sod 3.375 gm/Sodium Chloride 50 ml @ 100 mls/hr Q6HRS IV ; Start 01/12/19 at 11:00 Active Scripts Active Zyvox (Linezolid) 600 Mg Tablet 600 Mg PO BID 6 Days Cipro (Ciprofloxacin Hcl) 250 Mg Tablet 500 Mg PO BID 6 Days Reported Triamterene-Hctz 75-50 Mg Tab (Triamterene/Hydrochlorothiazid) 1 Each Tablet 1 Tab PO DAILY Hydromorphone Hcl 4 Mg Tablet 4 Mg PO Q4HRS PRN Eliquis (Apixaban) 2.5 Mg Tablet 2.5 Mg PO BID Coreg (Carvedilol) 6.25 Mg Tablet 1 Tab PO BID Potassium Chloride 10 Meq Capsule.er 10 Meq PO UD Zetia (Ezetimibe) 10 Mg Tablet 1 Tab PO DAILY AM Vitamin D2 (Ergocalciferol (Vitamin D2)) 50,000 Unit Capsule 50,000 Unit PO QSU Lexapro (Escitalopram Oxalate) 20 Mg Tablet 40 Mg PO DAILY Trazodone Hcl 100 Mg Tablet 1 Tab PO QHS Ranitidine Hcl 300 Mg Capsule 1 Cap PO HS Cymbalta (Duloxetine Hcl) 60 Mg Capsule.dr 60 Mg PO BID Vitals/I & O Vital Sign - Last 24 Hours 01/11/19 01/11/19 01/11/19 01/11/19 11:16 12:00 13:00 14:00 Temp 98.3 98.3 Pulse 106 104 104 106 Resp 20 B/P (MAP) 152/73 (99) 153/69 (97) 145/64 (91) 147/60 (89) Pulse Ox 94 94 94 94 O2 Delivery Room Air Room Air Room Air Room Air 01/11/19 01/11/19 01/11/19 01/11/19 15:45 17:00 19:00 20:00 Temp 99.5 100.6 99.5 100.6 Pulse 104 102 Resp 16 17 B/P (MAP) 115/58 (77) 122/61 (81) Pulse Ox 93 91 O2 Delivery Room Air Room Air Room Air Room Air 01/11/19 01/11/19 01/12/19 01/12/19 22:18 23:00 03:00 07:00 Temp 99.6 98.2 98.1 99.6 98.2 98.1 Pulse 102 91 78 79 Resp 18 18 16 B/P (MAP) 122/61 103/39 (60) 106/63 (77) 111/52 (71) Pulse Ox 90 96 91 O2 Delivery Room Air Room Air Room Air 01/12/19 08:16 Pulse 91 B/P (MAP) 111/52 Intake and Output 01/11/19 01/11/19 01/12/19 15:00 23:00 07:00 Intake Total 1650 ml 120 ml Balance 1650 ml 120 ml PERRY CHASE MD Jan 12, 2019 10:41
[2019-01-12 11:00] VITALS: BP 111/52
[2019-01-12] MEDS ORDERED: PIPERACILLIN/TAZOBACTAM 3.375 GM in IV NORMAL SALINE 50ML 50 ML IV SCH (11:00)
--- NOTE | 2019-01-12 11:06 | CONS ---
DATE OF CONSULTATION: 01/12/2019 LOCATION: The patient's room is 558. REQUESTING PHYSICIAN: Marcos Busch MD REASON FOR CONSULTATION: Possible pneumonitis and aspiration. HISTORY OF PRESENT ILLNESS: The patient is a 68-year-old female with past medical history of a single kidney and a previous knee infection as well as hypertension, obesity and a lap band procedure performed in 2008. She states about 6 weeks ago, she was on a retreat and began to have some nausea and vomiting that has persisted up until this time. She was seen in the outpatient setting by Dr. Dickerson approximately a week ago when she was having some fevers. She underwent an EGD at that time and was told that she had an inflamed hiatal hernia area and some irritation. Over the past week, she continued to have nausea and vomiting as well as fever and she states her stated that she was taken to the Emergency Room. She did present on the , did have T-max of 100.6. Her white blood cell count was elevated at 16.6. She was given a dose of levofloxacin in the Emergency Room. She underwent an ultrasound which showed cholelithiasis without evidence of acute cholecystitis. She has some hepatomegaly and diffuse hepatic steatosis. CT scan of abdomen and pelvis was obtained, showed nodular lung infiltrates within both lower lobes and the inferior segment of the lingual. Lap band was present. Small hiatal hernia present versus dilatation of the distal esophagus related to the tightness in the lap band. Chest x-ray showed left greater than right basilar nodular opacities, may be infectious and/or inflammatory. Currently, the patient is lying in her bed on her side and feels slightly better, although nausea, vomiting is main issue. Mild cough, fevers, chills, sweats. No dysuria, frequency, urgency. No diarrhea. Still has pain in her right knee. Denies any other trauma or rashes. PAST MEDICAL HISTORY: Positive for inflammatory bowel disease, hypertension, gastroesophageal reflux disease, depression, anxiety, medical problems, chronic back pain and neck pain, type 2 diabetes, history of renal cancer, history of MRSA, history of cataracts, history of possible knee infection. PAST SURGICAL HISTORY: Positive for a left nephrectomy; lap band surgery; back surgery, cervical, lumbar; history of spinal stimulator; hysterectomy; cholecystectomy; cataract extraction; tonsillectomy and multiple right knee surgeries. REVIEW OF SYSTEMS: Otherwise negative except as mentioned above. ALLERGIES: LIST CEPHALEXIN CAUSES NAUSEA. SHE BELIEVES SHE HAS TOLERATED AUGMENTIN OR AMOXICILLIN. SULFA IS A TRUE ALLERGY. SOCIAL HISTORY: Lives at home. Former smoker. She is . FAMILY HISTORY: Positive for depression and cardiovascular disease. CURRENT MEDICATIONS: She did receive a dose of levofloxacin in the Emergency Room. She is on Eliquis, Coreg, Celexa, Cymbalta, Zetia, Pepcid, Dilaudid, Zofran, Desyrel. PHYSICAL EXAMINATION: VITAL SIGNS: T-max 100.6, currently 98.1; pulse 91; respirations 16; blood pressure 111/52; satting 91% on room air. CONSTITUTIONAL: She is lying in bed. She is cooperative. She is in no acute distress. She does look a little bit tired. She has normal conjunctivae. HEENT: Oral cavity is clear. NECK: Supple, no JVD. LUNGS: Clear to auscultation. HEART: S1, S2. ABDOMEN: Obese, soft, nontender. Right knee incision is healed. There is no gross erythema or edema. SKIN: Warm to touch without signs of rash. NEUROLOGIC: She is nonfocal and appropriate. PSYCHIATRIC: Affect is appropriate. LABORATORY DATA: White count today 14.5, hemoglobin 10.9, platelets 226 with 87% neutrophils. She did have 15% bands on arrival. Creatinine 0.9. AST 9, ALT 13, alk phos 49, glucose of 117. Urinalysis is clean. Drug screen is negative. Radiology reviewed in history of present illness. IMPRESSION: 1. Fever. 2. Nausea, vomiting. 3. Pneumonitis, questionable aspiration. 4. ANTIBIOTIC ALLERGIES, SULFA, TRUE REACTION; CEPHALEXIN, NAUSEA; HAS TOLERATED AMOXICILLIN. 5. Questionable lap band malfunction. 6. Solitary kidney. RECOMMENDATIONS: We will begin Zosyn. She believes meropenem in the past has caused diarrhea. We will follow up labs and cultures. Questionable need to transfer to [facility] for lap band attention. This was discussed with Judith, nurse practitioner, for General Surgery. Also discussed with nursing. Thank you for allowing me to participate in the patient's care. If you have any questions, please do not hesitate to contact me. MARIA INES ZARAGOZA MD DR: MIKI/sherry JOB#: [id number] / [id number]
--- NOTE | 2019-01-12 11:43 | PDOC ---
Subjective: Subjective: Wants to try diet coke and crackers but feels miserable. Objective: Vital Signs: Vital Signs Date Time Temp Pulse Resp B/P (MAP) Pulse Ox O2 Delivery O2 Flow Rate FiO2 01/12/19 08:16 91 111/52 01/12/19 08:00 Room Air 01/12/19 07:00 98.1 16 91 98.1 Labs: Laboratory Tests Test 01/11/19 11:40 01/11/19 13:25 01/11/19 14:30 01/12/19 05:35 White Blood Count 16.6 x10^3/uL 14.5 x10^3/uL Red Blood Count 4.70 x10^6/uL 3.86 x10^6/uL Hemoglobin 13.2 g/dL 10.9 g/dL Hematocrit 40.3 % 33.5 % Mean Corpuscular Volume 86 fL 87 fL Mean Corpuscular Hemoglobin 28 pg 28 pg Mean Corpuscular Hemoglobin Concent 33 g/dL 33 g/dL Red Cell Distribution Width 15.2 % 15.4 % Platelet Count 315 x10^3/uL 226 x10^3/uL Neutrophils (%) (Auto) 90 % 87 % Lymphocytes (%) (Auto) 7 % 8 % Monocytes (%) (Auto) 3 % 4 % Eosinophils (%) (Auto) 1 % 1 % Basophils (%) (Auto) 0 % 1 % Neutrophils # (Auto) 14.9 x10^3/uL 12.7 x10^3/uL Lymphocytes # (Auto) 1.1 x10^3/uL 1.2 x10^3/uL Monocytes # (Auto) 0.5 x10^3/uL 0.5 x10^3/uL Eosinophils # (Auto) 0.1 x10^3/uL 0.1 x10^3/uL Basophils # (Auto) 0.1 x10^3/uL 0.1 x10^3/uL Segmented Neutrophils % 76 % Band Neutrophils % 15 % Lymphocytes % 4 % Monocytes % 3 % Basophils % 2 % Platelet Estimate Adequate Sodium Level 143 mmol/L 144 mmol/L Potassium Level 3.4 mmol/L 2.9 mmol/L Chloride Level 102 mmol/L 106 mmol/L Carbon Dioxide Level 34 mmol/L 31 mmol/L Anion Gap 7 7 Blood Urea Nitrogen 23 mg/dL 18 mg/dL Creatinine 1.0 mg/dL 0.9 mg/dL Estimated GFR (Cockcroft-Gault) 55.0 62.1 BUN/Creatinine Ratio 23 20 Glucose Level 138 mg/dL 117 mg/dL Calcium Level 9.5 mg/dL 8.4 mg/dL Total Bilirubin 0.7 mg/dL 0.8 mg/dL Aspartate Amino Transf (AST/SGOT) 10 U/L 9 U/L Alanine Aminotransferase (ALT/SGPT) 14 U/L 13 U/L Alkaline Phosphatase 61 U/L 49 U/L Total Protein 6.8 g/dL 5.6 g/dL Albumin 3.2 g/dL 2.4 g/dL Albumin/Globulin Ratio 0.9 0.8 Lipase 103 U/L Ethyl Alcohol Level < 10 mg/dL Urine Collection Type Unknown Urine Color Yellow Urine Clarity Clear Urine pH 7.0 Urine Specific [place] >=1.030 Urine Protein Negative mg/dL Urine Glucose (UA) Negative mg/dL Urine Ketones (Stick) Negative mg/dL Urine Blood Negative Urine Nitrite Negative Urine Bilirubin Negative Urine Urobilinogen Dipstick 0.2 mg/dL Urine Leukocyte Esterase Negative Urine RBC 1-2 /HPF Urine WBC 1-4 /HPF Urine Squamous Epithelial Cells Many /LPF Urine Bacteria Moderate /HPF Urine Mucus Slight /LPF Urine Opiates Screen Neg Urine Methadone Screen Neg Urine Barbiturates Neg Urine Phencyclidine Screen Neg Urine Amphetamine/Methamphetamine Neg Urine Benzodiazepines Screen Neg Urine Cocaine Screen Neg Urine Cannabinoids Screen Neg Urine Ethyl Alcohol Neg Lactic Acid Level 1.6 mmol/L PE: GEN: NAD - resting, looks uncomfortable LUNGS: CTAB HEART: RRR ABD: mildly tender NEURO/PSYCH: A & O 3 A/P: Vomiting, weight loss w/ lap band Leukocytosis, fever GERD Cholelithiasis - incidental finding -- Seems like plans to transfer to see bariatric surgeon. JILLIAN GREY Jan 12, 2019 11:43
--- NOTE | 2019-01-12 11:43 | PDOC3 ---
Discharge Summary Date of Admission: Jan 11, 2019 Date of Discharge: Jan 12, 2019 Follow-Up: 1-2 days Admitting Diagnosis comment: VTE Prophylaxis Ordered VTE Prophylaxis Devices: Yes VTE Pharmacological Prophylaxi: Yes transfer DX Assessment/Plan IMPRESSION: INTRACTABLE VOMITING WITH WEIGHT LOSS X 6 WEEKS Nodular lung infiltrates are seen within both lower lobes and the inferior segment of the lingula. possibility of aspiration pneumonitis., BUT NO FEVER, HOWEVER leukocytosis is noted ON CT LAP Band is present. There is a small hiatal hernia present versus dilatation of the distal esophagus related to tightness of the LAP Band. on EGD 01/04/19 (Dr. Dickerson) for epigastric pain, n/v: Grade A esophagitis, small hiatal hernia, normal duodenum. GERD obesity LAP BAND malfunction suspected HYPOKALEMIA, REPLACED plan admit iv fluid support CONSULT DR DICKERSON REVIEWED ID CONSULT IV Levaquin 500mg x 1 IN ER , NOW ON IV ZOSYN home meds transfer to [facility] today YOLANDA CASE MGT HELPING D/W DR CRESPO 02 SUPPORT PRN 37 min pt exam, chart review D/C PLANNING , > 50% of time spent with exam, chart review, pt care coordination Vitals Vitals Vital Signs Date Time Temp Pulse Resp B/P (MAP) Pulse Ox O2 Delivery O2 Flow Rate FiO2 01/12/19 08:16 91 111/52 01/12/19 07:00 98.1 16 91 Room Air 98.1 Physical Exam General: Alert, Oriented X3, Cooperative, No acute distress Heart: Regular rate, Normal S1, Normal S2 Lungs: Clear Abdomen: Normal bowel sounds, Soft, No tenderness Extremities: No clubbing, No cyanosis Skin: No rashes, No breakdown FINAL DIAGNOSIS Problems Medical Problems: (1) Aspiration pneumonia Status: Acute (2) Cholelithiases Status: Acute (3) Nausea & vomiting Status: Acute Brief Hospital Course Ms. Baig is a 68 old [sex] who presented with [ INTRACTABLE VOMITING] CONDITION AT DISCHARGE: Comment (IN NEED OF TRANSFER) Discharge Medications Current Medications Famotidine (Pepcid Vial) 20 mg 1X ONCE IVP Last administered on 01/11/19at 11:44; Start 01/11/19 at 11:30; Stop 01/11/19 at 11:31; Status DC Sodium Chloride 1,000 ml @ 1,000 mls/hr 1X ONCE IV Last administered on 01/11/19at 11:45; Start 01/11/19 at 11:30; Stop 01/11/19 at 12:29; Status DC Ondansetron HCl (Zofran) 4 mg 1X ONCE IV Last administered on 01/11/19at 11:44; Start 01/11/19 at 11:30; Stop 01/11/19 at 11:31; Status DC Iohexol (Omnipaque 300 Mg/ml) 50 ml 1X ONCE IV Last administered on 01/11/19at 12:18; Start 01/11/19 at 12:15; Stop 01/11/19 at 12:16; Status DC Info (CONTRAST GIVEN -- Rx MONITORING) 1 each PRN DAILY PRN MC SEE COMMENTS; Start 01/11/19 at 12:15; Stop 01/13/19 at 12:14 Levofloxacin/ Dextrose 100 ml @ 100 mls/hr 1X ONCE IV Last administered on 01/11/19at 15:16; Start 01/11/19 at 14:30; Stop 01/11/19 at 15:29; Status DC Ondansetron HCl (Zofran) 4 mg PRN Q8HRS PRN IV NAUSEA/VOMITING; Start 01/11/19 at 15:30; Stop 01/12/19 at 15:29 Sodium Chloride 1,000 ml @ 75 mls/hr 1X ONCE IV Last administered on 01/11/19at 20:19; Start 01/11/19 at 15:30; Stop 01/12/19 at 04:49; Status DC Pantoprazole Sodium (PROTONIX VIAL for IV PUSH) 40 mg DAILYAC IVP Last administ ered on 01/12/19at 06:35; Start 01/11/19 at 17:00 Levofloxacin/ Dextrose 100 ml @ 100 mls/hr 1X ONCE IV ; Start 01/11/19 at 20:45; Stop 01/11/19 at 21:44; Status UNV Apixaban (Eliquis) 2.5 mg BID PO ; Start 01/11/19 at 21:00 Carvedilol (Coreg) 6.25 mg BIDWMEALS PO Last administered on 01/12/19at 08:16; Start 01/11/19 at 21:00 Ergocalciferol (Vitamin D2) 50,000 unit QSU PO ; Start 01/15/19 at 16:00 EZETIMIBE (Zetia) 10 mg DAILY08 PO Last administered on 01/12/19at 08:11; Start 01/12/19 at 08:00 Hydromorphone HCl (Dilaudid) 4 mg PRN Q4HRS PRN PO PAIN; Start 01/11/19 at 20:45 Linezolid (Zyvox) 600 mg BID PO ; Start 01/11/19 at 21:00; Status UNV Potassium Chloride (Klor-Con) 10 meq BIDWMEALS PO Last administered on 01/12/19at 08:11; Start 01/11/19 at 21:00 Trazodone HCl (Desyrel) 100 mg QHS PO ; Start 01/11/19 at 21:00 Duloxetine HCl (Cymbalta) 60 mg BID PO ; Start 01/11/19 at 21:00 Citalopram Hydrobromide (CeleXA) 40 mg DAILY PO ; Start 01/12/19 at 09:00 Famotidine (Pepcid) 20 mg QHS PO Last administered on 01/11/19at 22:14; Start 01/11/19 at 21:00 Info (Anti-Coagulation Monitoring By Pharmacy) 1 each PRN DAILY PRN MC SEE COMMENTS; Start 01/11/19 at 21:00 Potassium Chloride (Klor-Con) 40 meq 1X ONCE PO Last administered on 01/12/19at 08:11; Start 01/12/19 at 08:00; Stop 01/12/19 at 08:01; Status DC Influenza Virus Vaccine Quadrival (Afluria Quad 2019-20 (3yr Up) Syringe) 0.5 ml ONCE ONCE VAX IM ; Start 01/12/19 at 09:45; Stop 01/12/19 at 09:52; Status DC Piperacillin Sod/ Tazobactam Sod 3.375 gm/Sodium Chloride 50 ml @ 100 mls/hr Q6HRS IV ; Start 01/12/19 at 11:00 Active Scripts Active Zyvox (Linezolid) 600 Mg Tablet 600 Mg PO BID 6 Days Cipro (Ciprofloxacin Hcl) 250 Mg Tablet 500 Mg PO BID 6 Days Reported Triamterene-Hctz 75-50 Mg Tab (Triamterene/Hydrochlorothiazid) 1 Each Tablet 1 Tab PO DAILY Hydromorphone Hcl 4 Mg Tablet 4 Mg PO Q4HRS PRN Eliquis (Apixaban) 2.5 Mg Tablet 2.5 Mg PO BID Coreg (Carvedilol) 6.25 Mg Tablet 1 Tab PO BID Potassium Chloride 10 Meq Capsule.er 10 Meq PO UD Zetia (Ezetimibe) 10 Mg Tablet 1 Tab PO DAILY AM Vitamin D2 (Ergocalciferol (Vitamin D2)) 50,000 Unit Capsule 50,000 Unit PO QSU Lexapro (Escitalopram Oxalate) 20 Mg Tablet 40 Mg PO DAILY Trazodone Hcl 100 Mg Tablet 1 Tab PO QHS Ranitidine Hcl 300 Mg Capsule 1 Cap PO HS Cymbalta (Duloxetine Hcl) 60 Mg Capsule.dr 60 Mg PO BID Vital Signs Vital Signs Date Time Temp Pulse Resp B/P (MAP) Pulse Ox O2 Delivery O2 Flow Rate FiO2 01/12/19 08:16 91 111/52 01/12/19 08:00 Room Air 01/12/19 07:00 98.1 16 91 98.1 Labs Laboratory Tests Test 01/11/19 11:40 01/11/19 13:25 01/11/19 14:30 01/12/19 05:35 White Blood Count 16.6 x10^3/uL (4.0-11.0) 14.5 x10^3/uL (4.0-11.0) Red Blood Count 4.70 x10^6/uL (3.50-5.40) 3.86 x10^6/uL (3.50-5.40) Hemoglobin 13.2 g/dL (12.0-15.5) 10.9 g/dL (12.0-15.5) Hematocrit 40.3 % (36.0-47.0) 33.5 % (36.0-47.0) Mean Corpuscular Volume 86 fL (79-100) 87 fL (79-100) Mean Corpuscular Hemoglobin 28 pg (25-35) 28 pg (25-35) Mean Corpuscular Hemoglobin Concent 33 g/dL (31-37) 33 g/dL (31-37) Red Cell Distribution Width 15.2 % (11.5-14.5) 15.4 % (11.5-14.5) Platelet Count 315 x10^3/uL (140-400) 226 x10^3/uL (140-400) Neutrophils (%) (Auto) 90 % (31-73) 87 % (31-73) Lymphocytes (%) (Auto) 7 % (24-48) 8 % (24-48) Monocytes (%) (Auto) 3 % (0-9) 4 % (0-9) Eosinophils (%) (Auto) 1 % (0-3) 1 % (0-3) Basophils (%) (Auto) 0 % (0-3) 1 % (0-3) Neutrophils # (Auto) 14.9 x10^3/uL (1.8-7.7) 12.7 x10^3/uL (1.8-7.7) Lymphocytes # (Auto) 1.1 x10^3/uL (1.0-4.8) 1.2 x10^3/uL (1.0-4.8) Monocytes # (Auto) 0.5 x10^3/uL (0.0-1.1) 0.5 x10^3/uL (0.0-1.1) Eosinophils # (Auto) 0.1 x10^3/uL (0.0-0.7) 0.1 x10^3/uL (0.0-0.7) Basophils # (Auto) 0.1 x10^3/uL (0.0-0.2) 0.1 x10^3/uL (0.0-0.2) Segmented Neutrophils % 76 % (35-66) Band Neutrophils % 15 % (0-9) Lymphocytes % 4 % (24-48) Monocytes % 3 % (0-10) Basophils % 2 % (0-3) Platelet Estimate Adequate (ADEQUATE) Sodium Level 143 mmol/L (136-145) 144 mmol/L (136-145) Potassium Level 3.4 mmol/L (3.5-5.1) 2.9 mmol/L (3.5-5.1) Chloride Level 102 mmol/L (98-107) 106 mmol/L (98-107) Carbon Dioxide Level 34 mmol/L (21-32) 31 mmol/L (21-32) Anion Gap 7 (6-14) 7 (6-14) Blood Urea Nitrogen 23 mg/dL (7-20) 18 mg/dL (7-20) Creatinine 1.0 mg/dL (0.6-1.0) 0.9 mg/dL (0.6-1.0) Estimated GFR (Cockcroft-Gault) 55.0 62.1 BUN/Creatinine Ratio 23 (6-20) 20 (6-20) Glucose Level 138 mg/dL (70-99) 117 mg/dL (70-99) Calcium Level 9.5 mg/dL (8.5-10.1) 8.4 mg/dL (8.5-10.1) Total Bilirubin 0.7 mg/dL (0.2-1.0) 0.8 mg/dL (0.2-1.0) Aspartate Amino Transf (AST/SGOT) 10 U/L (15-37) 9 U/L (15-37) Alanine Aminotransferase (ALT/SGPT) 14 U/L (14-59) 13 U/L (14-59) Alkaline Phosphatase 61 U/L (46-116) 49 U/L (46-116) Total Protein 6.8 g/dL (6.4-8.2) 5.6 g/dL (6.4-8.2) Albumin 3.2 g/dL (3.4-5.0) 2.4 g/dL (3.4-5.0) Albumin/Globulin Ratio 0.9 (1.0-1.7) 0.8 (1.0-1.7) Lipase 103 U/L (73-393) Ethyl Alcohol Level < 10 mg/dL (0-10) Urine Collection Type Unknown Urine Color Yellow Urine Clarity Clear Urine pH 7.0 Urine Specific [place] >=1.030 Urine Protein Negative mg/dL (NEG-TRACE) Urine Glucose (UA) Negative mg/dL (NEG) Urine Ketones (Stick) Negative mg/dL (NEG) Urine Blood Negative (NEG) Urine Nitrite Negative (NEG) Urine Bilirubin Negative (NEG) Urine Urobilinogen Dipstick 0.2 mg/dL (0.2 mg/dL) Urine Leukocyte Esterase Negative (NEG) Urine RBC 1-2 /HPF (0-2) Urine WBC 1-4 /HPF (0-4) Urine Squamous Epithelial Cells Many /LPF Urine Bacteria Moderate /HPF (0-FEW) Urine Mucus Slight /LPF Urine Opiates Screen Neg (NEG) Urine Methadone Screen Neg (NEG) Urine Barbiturates Neg (NEG) Urine Phencyclidine Screen Neg (NEG) Urine Amphetamine/Methamphetamine Neg (NEG) Urine Benzodiazepines Screen Neg (NEG) Urine Cocaine Screen Neg (NEG) Urine Cannabinoids Screen Neg (NEG) Urine Ethyl Alcohol Neg (NEG) Lactic Acid Level 1.6 mmol/L (0.4-2.0) Laboratory Tests Test 01/11/19 13:25 01/11/19 14:30 01/12/19 05:35 Urine Collection Type Unknown Urine Color Yellow Urine Clarity Clear Urine pH 7.0 Urine Specific [place] >=1.030 Urine Protein Negative mg/dL (NEG-TRACE) Urine Glucose (UA) Negative mg/dL (NEG) Urine Ketones (Stick) Negative mg/dL (NEG) Urine Blood Negative (NEG) Urine Nitrite Negative (NEG) Urine Bilirubin Negative (NEG) Urine Urobilinogen Dipstick 0.2 mg/dL (0.2 mg/dL) Urine Leukocyte Esterase Negative (NEG) Urine RBC 1-2 /HPF (0-2) Urine WBC 1-4 /HPF (0-4) Urine Squamous Epithelial Cells Many /LPF Urine Bacteria Moderate /HPF (0-FEW) Urine Mucus Slight /LPF Urine Opiates Screen Neg (NEG) Urine Methadone Screen Neg (NEG) Urine Barbiturates Neg (NEG) Urine Phencyclidine Screen Neg (NEG) Urine Amphetamine/Methamphetamine Neg (NEG) Urine Benzodiazepines Screen Neg (NEG) Urine Cocaine Screen Neg (NEG) Urine Cannabinoids Screen Neg (NEG) Urine Ethyl Alcohol Neg (NEG) Lactic Acid Level 1.6 mmol/L (0.4-2.0) White Blood Count 14.5 x10^3/uL (4.0-11.0) Red Blood Count 3.86 x10^6/uL (3.50-5.40) Hemoglobin 10.9 g/dL (12.0-15.5) Hematocrit 33.5 % (36.0-47.0) Mean Corpuscular Volume 87 fL (79-100) Mean Corpuscular Hemoglobin 28 pg (25-35) Mean Corpuscular Hemoglobin Concent 33 g/dL (31-37) Red Cell Distribution Width 15.4 % (11.5-14.5) Platelet Count 226 x10^3/uL (140-400) Neutrophils (%) (Auto) 87 % (31-73) Lymphocytes (%) (Auto) 8 % (24-48) Monocytes (%) (Auto) 4 % (0-9) Eosinophils (%) (Auto) 1 % (0-3) Basophils (%) (Auto) 1 % (0-3) Neutrophils # (Auto) 12.7 x10^3/uL (1.8-7.7) Lymphocytes # (Auto) 1.2 x10^3/uL (1.0-4.8) Monocytes # (Auto) 0.5 x10^3/uL (0.0-1.1) Eosinophils # (Auto) 0.1 x10^3/uL (0.0-0.7) Basophils # (Auto) 0.1 x10^3/uL (0.0-0.2) Sodium Level 144 mmol/L (136-145) Potassium Level 2.9 mmol/L (3.5-5.1) Chloride Level 106 mmol/L (98-107) Carbon Dioxide Level 31 mmol/L (21-32) Anion Gap 7 (6-14) Blood Urea Nitrogen 18 mg/dL (7-20) Creatinine 0.9 mg/dL (0.6-1.0) Estimated GFR (Cockcroft-Gault) 62.1 BUN/Creatinine Ratio 20 (6-20) Glucose Level 117 mg/dL (70-99) Calcium Level 8.4 mg/dL (8.5-10.1) Total Bilirubin 0.8 mg/dL (0.2-1.0) Aspartate Amino Transf (AST/SGOT) 9 U/L (15-37) Alanine Aminotransferase (ALT/SGPT) 13 U/L (14-59) Alkaline Phosphatase 49 U/L (46-116) Total Protein 5.6 g/dL (6.4-8.2) Albumin 2.4 g/dL (3.4-5.0) Albumin/Globulin Ratio 0.8 (1.0-1.7) Allergies Allergies Coded Allergies Type Severity Reaction Last Updated Verified fentanyl Allergy Severe "went out of it" 06/10/18 Yes Sulfa (Sulfonamide Antibiotics) Allergy Intermediate Rash, Nausea and Vomiting 06/10/18 Yes cephalexin Allergy Intermediate RASH, HIVES, NAUSEA/VOMITING 01/12/19 Yes gabapentin Allergy Intermediate RASH, ITCHING 06/10/18 Yes hydrocodone Allergy Intermediate Tolerates hydromorphone 05/17/18 Yes metformin Allergy Intermediate 05/17/18 Yes oxymorphone Allergy Intermediate 05/17/18 Yes bupropion Adverse Reaction Intermediate "MAKES HER CRAZY" 06/10/18 Yes oxycodone Adverse Reaction Intermediate Nausea and Vomiting 05/17/18 Yes rosuvastatin Adverse Reaction Intermediate MUSCLE ACHING 06/10/18 Yes Disposition/Orders: Other (TRANSFER TO [facility] ) PERRY CHASE MD Jan 12, 2019 11:43
[2019-01-12] MEDS ORDERED: PANT40VI IVP (11:47)
[2019-01-12] MEDS ORDERED: PIPE3.377 IV (11:47)
[2019-01-12] MEDS ORDERED: ONDA4VIA7 IV (11:47)
--- NOTE | 2019-01-12 12:04 | NUR ---
MATTHEW following for discharge planning. Chart reviewed, discussed with RN. Pt is from home with . Transfer requested to [facility] due to pt's lap band and suspected malfunction. MATTHEW contacted [facility] bed control (ph: [phone]). Charu at [facility] bed control contacted MATTHEW back advising the hospitalist at [facility] wants the surgeons to speak with Dr. Busch, however they are in surgery currently, but will contact Dr. Busch as soon as they are done. Dr. Smith is the doctor who did pt's surgey, per pt. Charu advised not to fax anything until the doctors have spoken. SW awaiting call back with further instructions. RN notified. MATTHEW will continue to follow. Addendum: 01/12/19 at 1308 by LAYLA CASTRO MATTHEW following. Dr Busch notified MATTHEW of pt being accepted for [facility] transfer, accepting physician is Dr. Schulte. MATTHEW to fax pt paperwork to [facility] (fax [phone]). RN notified. Addendum: 01/12/19 at 1353 by LAYLA CASTRO MATTHEW received "no response" note from [facility] fax. Was provided a new fax number [phone]. transfer packet faxed again. MATTHEW will continue to follow.
[2019-01-12 15:00] VITALS: BP 98/32
--- NOTE | 2019-01-12 15:18 | NUR ---
This RN gave report to RADHA Brasher at [facility] at approx 1515.
--- NOTE | 2019-01-12 15:52 | NUR ---
SW following for discharge planning. Discussed with RN, [facility] provided room number of 505. SW set up transportation with [facility] for 1700, [facility] faxed. RN and [facility] notified. No further SW needs.
[2019-01-12 16:40] VITALS: BP 111/42
--- NOTE | 2019-01-12 18:11 | NUR ---
EMS picked pt up at 1810. Pt left unit by martha via EMS. Pt IV remains in place. Pt stable at discharge. Paperwork sent with EMS.
[2019-01-15] MEDS ORDERED: ERGOCALCIFEROL (VITAMIN D2) 50,000 UNIT CAPSULE. PO SCH (16:00)
== END 2019-01-12 18:13 | disposition short-term general hospital (02) | DRG 393 ==
LOC: ER 10:59 → 5 SOUTH 14:16
PROVIDERS: ADMIT Family Medicine; ATTEND Family Medicine
DX: K95.09 Other complications of gastric band procedure (principal); J69.0 Pneumonitis due to inhalation of food and vomit; K21.9 Gastro-esophageal reflux disease without esophagitis; F41.9 Anxiety disorder, unspecified; K76.0 Fatty (change of) liver, not elsewhere classified; E87.6 Hypokalemia; E66.9 Obesity, unspecified; F32.9 Major depressive disorder, single episode, unspecified; G89.29 Other chronic pain; K80.20 Calculus of gallbladder without cholecystitis without obstruction; I10 Essential (primary) hypertension; E78.00 Pure hypercholesterolemia, unspecified; Z96.659 Presence of unspecified artificial knee joint; M19.90 Unspecified osteoarthritis, unspecified site; F17.210 Nicotine dependence, cigarettes, uncomplicated; K44.9 Diaphragmatic hernia without obstruction or gangrene; E78.5 Hyperlipidemia, unspecified; E11.9 Type 2 diabetes mellitus without complications; Y84.8 Other medical procedures as the cause of abnormal reaction of the patient, or of later complication, without mention of misadventure at the time of the procedure; Z87.19 Personal history of other diseases of the digestive system; Z90.5 Acquired absence of kidney; Z88.1 Allergy status to other antibiotic agents; Z98.49 Cataract extraction status, unspecified eye; Z86.14 Personal history of Methicillin resistant Staphylococcus aureus infection; Z90.49 Acquired absence of other specified parts of digestive tract; Z68.35 Body mass index [BMI] 35.0-35.9, adult; Z86.718 Personal history of other venous thrombosis and embolism; Z90.710 Acquired absence of both cervix and uterus; Z85.528 Personal history of other malignant neoplasm of kidney; Z86.010 Personal history of colon polyps; Z88.2 Allergy status to sulfonamides; Z88.8 Allergy status to other drugs, medicaments and biological substances; Z81.8 Family history of other mental and behavioral disorders; Z82.49 Family history of ischemic heart disease and other diseases of the circulatory system
CPT/HCPCS: 36415; 71046; 74177; 76705; 80053; 80307; 81001; 83605; 83690; 85007; 85025; 87040; 87086; 90471; 90686; 96361; 96374; 96375; C9113; G0480; J1956; J2405; J2543; J3490; J7030; Q9967; 99285-25; G0378

== ENCOUNTER → 2019-04-05 | Outpatient (CLI) | payer MEDICARE ==
[~2019-04-05] MED LIST changes: +ONDA4VIA7 IV; +PANT40VI IVP; +PIPE3.377 IV; +TRAZ-123 PO; -TRAZ-86 PO
--- NOTE | 2019-04-05 15:39 | RAD ---
Examination: Frontal views of the bilateral knees, 2 views of the right knee HISTORY: History of right knee pain injury while getting into bed COMPARISON: 09/01/2018 Findings/ impression: Flexed appearance of the knee causes some anterior translation of the femoral prosthesis is in relation to the tibial prosthesis, which could be in part due to positioning of the knee due to flexion. However anterior subluxation is not completely excluded. Correlate clinically. No acute fracture. Moderate joint space loss identified in the medial, lateral compartment likely degenerative changes. Electronically signed by: Jovanny Magdaleno MD (04/05/2019 3:36 PM) [place] [id number]
== END | disposition home or self-care (01) ==
LOC: RAD 14:53
PROVIDERS: ATTEND Orthopaedic Surgery
DX: M25.561 Pain in right knee (principal)
CPT/HCPCS: 73560; 73565

== ENCOUNTER 2019-08-22 17:11 | Inpatient (IN) | payer MEDICARE ==
[~2019-08-22] VITALS: Ht 165.1 cm; Wt 105.7 kg
[~2019-08-22 17:11] MED LIST changes: +HYDR8TAB29 PO; +PANT20TA2 PO; +TRIA1TAB PO; -WARF-78 PO; +WARF5TAB2 PO
[2019-08-22 18:07] VITALS: BP 156/52
[2019-08-22 19:00] VITALS: BP 119/65
[2019-08-22] MEDS ORDERED: ONDANSETRON PF 4 MG/2 ML VIAL. IV PRN ×2 (19:15→20:30)
[2019-08-22] MEDS ORDERED: ACETAMINOPHEN 325 MG TABLET. PO PRN (19:15)
[2019-08-22] MEDS ORDERED: DEXTROSE 50% 25 GM / 50ML DISP.SYRIN. IV PRN (19:15)
[2019-08-22] MEDS ORDERED: LORazepam 0.5 MG TABLET PO PRN (19:15)
[2019-08-22] MEDS ORDERED: guaiFENesin ORAL 200 MG/10 ML LIQUID. PO PRN (19:15)
[2019-08-22] MEDS ORDERED: DOCUSATE SODIUM 100 MG CAPSULE. PO PRN ×2 (19:15→20:30)
[2019-08-22] MEDS ORDERED: ALBUTEROL SULFATE 2.5 MG/3 ML NEBU. NEB PRN ×2 (19:15→20:30)
[2019-08-22] MEDS: INSULIN LISPRO 300 UNITS/3 ML VIAL. SQ SCH (19:30)
[2019-08-22 20:03] LABS: BASO # 0.1 x10^3/uL (0.0-0.2); BASO % 1 % (0-3); EOS # 1.3 x10^3/uL (0.0-0.7); EOS % 13 % (0-3); HEMATOCRIT 28.7 % (36.0-47.0); HEMOGLOBIN 9.5 g/dL (12.0-15.5); LYMPH # 1.7 x10^3/uL (1.0-4.8); LYMPH % 17 % (24-48); MEAN CORPUSCULAR HEMOGLOBIN 28 pg (25-35); MEAN CORPUSCULAR HGB CONC 33 g/dL (31-37); MEAN CORPUSCULAR VOLUME 85 fL (79-100); MONO # 0.6 x10^3/uL (0.0-1.1); MONO % 6 % (0-9); NEUT # 6.2 x10^3/uL (1.8-7.7); NEUT % 63 % (31-73); PLATELET COUNT 445 x10^3/uL (140-400); RED BLOOD COUNT 3.38 x10^6/uL (3.50-5.40); RED CELL DISTRIBUTION WIDTH 15.9 % (11.5-14.5); WHITE BLOOD COUNT 9.8 x10^3/uL (4.0-11.0)
[2019-08-22 20:05] LABS: CREATININE 0.9 mg/dL (0.6-1.0); GFR 62.1; POTASSIUM 3.8 mmol/L (3.5-5.1)
[2019-08-22 20:10] LABS: PROTHROMBIN TIME PATIENT 12.9 SEC (11.7-14.0)
[2019-08-22 20:23] LABS: % EOS 8 % (0-5); % LYMPHS 16 % (24-48); % MONOS 3 % (0-10); % SEGS 73 % (35-66); PLT ESTIMATE INCREASED (ADEQUATE)
[2019-08-22] MEDS: HYDROmorphone 4 MG TABLET PO PRN (20:23)
[2019-08-22 20:24] LABS: POLYCHROMASIA OCCASIONAL
[2019-08-22] MEDS ORDERED: HYDROMORPHONE HCL PO PRN (20:30)
[2019-08-22] MEDS ORDERED: ZOLPIDEM 5 MG TABLET. PO PRN (20:30)
[2019-08-22] MEDS ORDERED: diphenhydrAMINE 50 MG/ML VIAL IVP PRN (20:30)
--- NOTE | 2019-08-22 20:38 | PDOC1 ---
History and Physical Date of Admission Date of Admission 08/22/2019 Identification/Chief Complaint Chief Complaint my knee is bleeding History of Present Illness History of Present Illness Patient is a 68-year-old female with a quite extensive past medical history that includes inflammatory bowel disease essential hypertension diabetes mellitus type 2 insulin requiring obesity history of renal cancer status post left nephrectomy history of MRSA who was in her usual state of health until approximately 2 days prior to her admission when she started noticing bleeding from the affected joint of her left knee. Her history is quite extensive when it comes to her knee and is as follows: the patient's original surgery was on 08/25/2016 with a right total knee arthroplasty. Subsequently on 11/03/2016, she needed exploration I and D and poly exchange. Then, on 04/16/2017, she had explantation of the right knee. On 07/06/2017, she had reimplantation and ORIF on the medial condylar fracture. Then on 05/17/2018, she had a patellar recons truction with allograft repair. Then on 06/10/2018, she had an exploration and debridement of the right knee. Then again on 04/18/2019, she had an extensor mechanism reconstruction with allograft tissue and now yesterday on 07/25/2019, she had I and D of the right knee with a poly exchange and extensor mechanism repair done. Review of her chart regarding microbiology is as follows: Labs Micro Microbiology 07/25/19 Aerobic and Anaerobic Culture, Resulted Pending 07/25/19 Anaerobic Culture Result 1 (TANYA), Resulted Pending 07/25/19 Aerobic Culture - Preliminary, Resulted 07/25/19 Aerobic Culture Result 1 (TANYA) - Preliminary, Resulted 07/25/19 Gram Stain - Final, Resulted 07/25/19 Gram Stain Result 1 (TANYA) - Final, Resulted 07/25/19 Gram Stain Result 2 (TANYA) - Final, Resulted She will be admitted for reevaluation given her bleeding and discomfort. Case discussed with Dr De La Cruz Past Medical History Cardiovascular: HTN Pulmonary: No pertinent hx GI: GERD, Other Heme/Onc: Cancer Hepatobiliary: No pertinent hx, Cholelithiasis Psych: Anxiety, Depression Rheumatologic: No pertinent hx Infectious disease: No pertinent hx Renal/: Renal Ca. Endocrine: No pertinent hx Past Surgical History Past Surgical History: Cataract Removal, Total knee replacement, Tonsillectomy, Hysterectomy, Other Family History Family History: Hypertension Social History ALCOHOL: rare Drugs: None Current Medications Current Medications Current Medications Medications (Trade) Dose Ordered Sig/Hina Start Time Stop Time Status Last Admin Dose Admin Acetaminophen (Tylenol) 650 mg PRN Q4HRS PRN 08/22/19 19:15 Albuterol Sulfate (Ventolin Neb Soln) 2.5 mg PRN Q4HRS PRN 08/22/19 19:15 Carvedilol (Coreg) 6.25 mg BIDWMEALS 08/22/19 20:00 Citalopram Hydrobromide (CeleXA) 20 mg DAILY 08/23/19 09:00 Dextrose (Dextrose 50%-Water Syringe) 12.5 gm PRN Q15MIN PRN 08/22/19 19:15 Docusate Sodium (Colace) 100 mg PRN BID PRN 08/22/19 19:15 Duloxetine HCl (Cymbalta) 60 mg BID 08/22/19 21:00 Ergocalciferol (Vitamin D2) 50,000 unit QSU 08/27/19 16:00 EZETIMIBE (Zetia) 10 mg DAILY 08/23/19 09:00 Guaifenesin (Robitussin) 200 mg PRN Q4HRS PRN 08/22/19 19:15 Hydromorphone HCl (Dilaudid) 8 mg PRN Q4HRS PRN 08/22/19 19:15 Insulin Glargine (Lantus Syringe) 10 unit QHS 08/22/19 21:00 Insulin Human Lispro (HumaLOG) 0-7 UNITS TIDWMEALS 08/22/19 19:30 Lorazepam (Ativan) 0.5 mg PRN Q4HRS PRN 08/22/19 19:15 Ondansetron HCl (Zofran) 4 mg PRN Q4HRS PRN 08/22/19 19:15 Pantoprazole Sodium (Protonix) 40 mg QHS 08/22/19 21:00 Potassium Chloride (Klor-Con) 10 meq DAILY 08/23/19 09:00 Triamterene/HCTZ (Maxzide 37.5/ 25mg) 2 tab DAILY 08/23/19 09:00 Zolpidem Tartrate (Ambien) 5 mg PRN QHS PRN 08/22/19 19:15 Allergies Allergies Allergies Coded Allergies Type Severity Reaction Last Updated Verified Sulfa (Sulfonamide Antibiotics) Allergy Intermediate Rash, Nausea and Vomiting 07/25/19 Yes cephalexin Allergy Intermediate RASH, HIVES, NAUSEA/VOMITING 07/25/19 Yes gabapentin Allergy Intermediate RASH, ITCHING 07/25/19 Yes hydrocodone Allergy Intermediate Tolerates hydromorphone 07/25/19 Yes metformin Allergy Intermediate 07/25/19 Yes oxymorphone Allergy Intermediate 07/25/19 Yes bupropion Adverse Reaction Intermediate "MAKES HER CRAZY" 07/25/19 Yes oxycodone Adverse Reaction Intermediate Nausea and Vomiting 07/25/19 Yes rosuvastatin Adverse Reaction Intermediate MUSCLE ACHING 07/25/19 Yes ROS Review of System CONSTITUTIONAL: No fever or chills EYES: No recent changes SKIN: No rash or itching CARDIOVASCULAR: No chest pain, syncope, palpitations, or edema RESPIRATORY: No SOB or cough GASTROINTESTINAL: No nausea, vomiting or abdominal pain NEUROLOGICAL: No headaches or weakness ENDOCRINE: No cold or heat intolerance GENITOURINARY: No urgency or frequency of urination MUSCULOSKELETAL: No back pain or joint pain LYMPHATICS: No enlarged lymph nodes PSYCHIATRIC: No anxiety or depression Physical Exam Physical Exam GEN.: No apparent distress. Alert and oriented. HEENT: Head is normocephalic, atraumatic NECK: Supple. LUNGS: Clear to auscultation. HEART: RRR, S1, S2 present. Peripheral pulses intact ABDOMEN: Soft, nontender. Positive bowel sounds. EXTREMITIES: Without any cyanosis. NEUROLOGIC: Normal speech, normal tone PSYCHIATRIC: Normal affect, normal mood. SKIN: No ulcerations Vitals Vitals Vital Signs Date Time Temp Pulse Resp B/P (MAP) Pulse Ox O2 Delivery O2 Flow Rate FiO2 08/22/19 18:07 98.5 78 18 156/52 (86) 94 Room Air 98.5 Labs Labs Laboratory Tests Test 08/22/19 19:45 White Blood Count 9.8 x10^3/uL (4.0-11.0) Red Blood Count 3.38 x10^6/uL (3.50-5.40) Hemoglobin 9.5 g/dL (12.0-15.5) Hematocrit 28.7 % (36.0-47.0) Mean Corpuscular Volume 85 fL (79-100) Mean Corpuscular Hemoglobin 28 pg (25-35) Mean Corpuscular Hemoglobin Concent 33 g/dL (31-37) Red Cell Distribution Width 15.9 % (11.5-14.5) Platelet Count 445 x10^3/uL (140-400) Neutrophils (%) (Auto) 63 % (31-73) Lymphocytes (%) (Auto) 17 % (24-48) Monocytes (%) (Auto) 6 % (0-9) Eosinophils (%) (Auto) 13 % (0-3) Basophils (%) (Auto) 1 % (0-3) Neutrophils # (Auto) 6.2 x10^3/uL (1.8-7.7) Lymphocytes # (Auto) 1.7 x10^3/uL (1.0-4.8) Monocytes # (Auto) 0.6 x10^3/uL (0.0-1.1) Eosinophils # (Auto) 1.3 x10^3/uL (0.0-0.7) Basophils # (Auto) 0.1 x10^3/uL (0.0-0.2) Segmented Neutrophils % 73 % (35-66) Lymphocytes % 16 % (24-48) Monocytes % 3 % (0-10) Eosinophils % 8 % (0-5) Platelet Estimate Increased (ADEQUATE) Polychromasia Occasional Basophilic Stippling Present Prothrombin Time 12.9 SEC (11.7-14.0) Prothromb Time International Ratio 1.0 (0.8-1.1) Sodium Level 135 mmol/L (136-145) Potassium Level 3.8 mmol/L (3.5-5.1) Chloride Level 99 mmol/L (98-107) Carbon Dioxide Level 32 mmol/L (21-32) Anion Gap 4 (6-14) Blood Urea Nitrogen 13 mg/dL (7-20) Creatinine 0.9 mg/dL (0.6-1.0) Estimated GFR (Cockcroft-Gault) 62.1 Glucose Level 114 mg/dL (70-99) Calcium Level 9.0 mg/dL (8.5-10.1) Laboratory Tests Test 08/22/19 19:45 White Blood Count 9.8 x10^3/uL (4.0-11.0) Red Blood Count 3.38 x10^6/uL (3.50-5.40) Hemoglobin 9.5 g/dL (12.0-15.5) Hematocrit 28.7 % (36.0-47.0) Mean Corpuscular Volume 85 fL (79-100) Mean Corpuscular Hemoglobin 28 pg (25-35) Mean Corpuscular Hemoglobin Concent 33 g/dL (31-37) Red Cell Distribution Width 15.9 % (11.5-14.5) Platelet Count 445 x10^3/uL (140-400) Neutrophils (%) (Auto) 63 % (31-73) Lymphocytes (%) (Auto) 17 % (24-48) Monocytes (%) (Auto) 6 % (0-9) Eosinophils (%) (Auto) 13 % (0-3) Basophils (%) (Auto) 1 % (0-3) Neutrophils # (Auto) 6.2 x10^3/uL (1.8-7.7) Lymphocytes # (Auto) 1.7 x10^3/uL (1.0-4.8) Monocytes # (Auto) 0.6 x10^3/uL (0.0-1.1) Eosinophils # (Auto) 1.3 x10^3/uL (0.0-0.7) Basophils # (Auto) 0.1 x10^3/uL (0.0-0.2) Segmented Neutrophils % 73 % (35-66) Lymphocytes % 16 % (24-48) Monocytes % 3 % (0-10) Eosinophils % 8 % (0-5) Platelet Estimate Increased (ADEQUATE) Polychromasia Occasional Basophilic Stippling Present Prothrombin Time 12.9 SEC (11.7-14.0) Prothromb Time International Ratio 1.0 (0.8-1.1) Sodium Level 135 mmol/L (136-145) Potassium Level 3.8 mmol/L (3.5-5.1) Chloride Level 99 mmol/L (98-107) Carbon Dioxide Level 32 mmol/L (21-32) Anion Gap 4 (6-14) Blood Urea Nitrogen 13 mg/dL (7-20) Creatinine 0.9 mg/dL (0.6-1.0) Estimated GFR (Cockcroft-Gault) 62.1 Glucose Level 114 mg/dL (70-99) Calcium Level 9.0 mg/dL (8.5-10.1) VTE Prophylaxis Ordered VTE Prophylaxis Devices: No VTE Pharmacological Prophylaxi: Yes Assessment/Plan Assessment/Plan Right knee pain rule out hemarthrosis Essential hypertension Diabetes mellitus type 2 Obesity with a BMI of 35 History of renal cancer status post left nephrectomy History of MRSA History of right knee arthroplasty with several revisions poly-exchange and extensor mechanism repair done on 07/25/2019 Plan Consult orthopedics May require an ID consultation Resume home medication N.p.o. after midnight Further recommendations based on the clinical course Pain management with Dilaudid DVT prophylaxis with SCDs Justicifation of Admission Dx: Justifications for Admission: Justification of Admission Dx: Yes WILMER WANG MD Aug 22, 2019 20:37
[2019-08-22] MEDS: INSULIN GLARGINE SYRINGE. SQ SCH (21:00)
[2019-08-22] MEDS: CARVEDILOL 6.25 MG TABLET. PO SCH (21:42)
[2019-08-22] MEDS: PANTOPRAZOLE 40 MG TABLET.DR. PO SCH (21:42)
[2019-08-22] MEDS: DULoxetine HCL 30 MG CAPSULE.DR PO SCH (21:42)
[2019-08-22] MEDS: DAPTOmycin (GENERIC) IVPB 460 MG in IV NORMAL SALINE 50ML 50 ML IV SCH (21:43)
--- NOTE | 2019-08-22 22:00 | NUR ---
Patient states that she is not diabetic. Patient refuses accucheck blood sugar checks and insulin. Dr. Ospina notified.
[2019-08-22 23:00] VITALS: BP 131/61
[2019-08-23] VITALS (7 sets, daily range): BP systolic 109–141; BP diastolic 44–78
[2019-08-23] MEDS: MEROPENEM 500 MG in IV NORMAL SALINE 50ML 50 ML IV SCH ×4 (00:02→17:20)
[2019-08-23] MEDS: HYDROmorphone 4 MG TABLET PO PRN ×3 (00:26→13:51)
[2019-08-23] MEDS: INSULIN LISPRO 300 UNITS/3 ML VIAL. SQ SCH ×3 (07:32→17:00)
[2019-08-23] MEDS: DULoxetine HCL 30 MG CAPSULE.DR PO SCH ×2 (08:32→20:48)
[2019-08-23] MEDS: CITALOPRAM 20 MG TABLET. PO SCH (08:32)
[2019-08-23] MEDS: EZETIMIBE 10 MG TABLET. PO SCH (08:32)
[2019-08-23] MEDS: POTASSIUM CHLORIDE 10 MEQ TABLET.ER. PO SCH (08:32)
[2019-08-23] MEDS: CARVEDILOL 6.25 MG TABLET. PO SCH ×2 (08:39→17:00)
[2019-08-23] MEDS: TRIAMTERENE/HCTZ 37.5/25MG TABLET. PO SCH (08:40)
--- NOTE | 2019-08-23 09:13 | NUR ---
SW following. Discussed with RN, pt having surgery today - evacuation of hematoma. MATTHEW spoke with Nancy at [facility], pt can return when medically stable. SW will continue to follow.
--- NOTE | 2019-08-23 11:52 | PDOC2 ---
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 Patient is well-known to our service from recent discharge. Patient has complicated medical history with multiple surgeries of the right knee.She was recently discharged from [facility] when she was admitted persistent drainage from the right knee, s/p I and D Right knee with poly exchange and extensor mechanism repair done on 07/25/2019. Tissue culture from 07/25/2019 grew Corynebacterium species. She subsequently removal of right knee joint implant and plate and screw hardware with debridement and placement of non-articulating antibiotic spacer on August 15, 2019. Last surgery on August 15, 2019 was her ninth surgery on the right knee. She was discharged on IV meropenem and daptomycin to LTAC . She denies any fever, nausea, vomiting, shortness of breath, cough , headache , chest pain ,diarrhea, abdominal pain, rash, myalgia arthralgia or symptoms. Right knee pain is under control She is awaiting evacuation of right knee hematoma later today by Dr. De La Cruz Past Medical History Cardiovascular: HTN Pulmonary: No pertinent hx GI: GERD, Other Heme/Onc: Cancer Hepatobiliary: No pertinent hx, Cholelithiasis Psych: Anxiety, Depression Rheumatologic: No pertinent hx Infectious disease: No pertinent hx Renal/: Renal Ca. Endocrine: No pertinent hx Past Surgical History Past Surgical History: Cataract Removal, Total knee replacement, Tonsillectomy, Hysterectomy, Other Past Family History Family History: Hypertension Review of Symptoms Review of Symptoms General ROS: positive for - Psychological ROS: negative Ophthalmic ROS: negative ENT ROS: negative Allergy and Immunology ROS: negative Hematology and Lymphatic: negative Endocrine ROS: negative Respiratory ROS: no cold, cough, dyspnea. Cardiovascular ROS: no chest pain or dyspnea on exertion Gastrointestinal ROS: no abdominal pain, change in bowel habits, or black or bloody stools Genito-Urinary ROS: no dysuria, trouble voiding, or hematuria Musculoskeletal ROS: As above in HPI Neurological ROS: negative Dermatological ROS: no rash Medications Current Medications Acetaminophen (Tylenol) 650 mg PRN Q4HRS PRN PO TEMP OVER 100.4F OR MILD PAIN; Start 08/22/19 at 19:15 Albuterol Sulfate (Ventolin Neb Soln) 2.5 mg PRN Q4HRS PRN NEB SHORTNESS OF BREATH; Start 08/22/19 at 19:15 Albuterol Sulfate (Ventolin Neb Soln) 2.5 mg PRN Q4HRS PRN NEB SHORTNESS OF BREATH; Start 08/22/19 at 20:30; Status UNV Carvedilol (Coreg) 6.25 mg BIDWMEALS PO Last administered on 08/23/19at 08:39; Start 08/22/19 at 20:00 Citalopram Hydrobromide (CeleXA) 20 mg DAILY PO ; Start 08/23/19 at 09:00 Daptomycin 460 mg/ Sodium Chloride 50 ml @ 100 mls/hr Q24H IV Last administered on 08/22/19at 21:43; Start 08/22/19 at 21:00 Dextrose (Dextrose 50%-Water Syringe) 12.5 gm PRN Q15MIN PRN IV SEE COMMENTS; Start 08/22/19 at 19:15 Diphenhydramine HCl (Benadryl) 25 mg PRN Q4HRS PRN IVP ITCHING; Start 08/22/19 at 20:30 Docusate Sodium (Colace) 100 mg PRN BID PRN PO HARD STOOLS; Start 08/22/19 at 19:15 Docusate Sodium (Colace) 100 mg PRN BID PRN PO HARD STOOLS; Start 08/22/19 at 20:30; Status UNV Duloxetine HCl (Cymbalta) 60 mg BID PO Last administered on 08/22/19at 21:42; Start 08/22/19 at 21:00 Ergocalciferol (Vitamin D2) 50,000 unit QSU PO ; Start 08/27/19 at 16:00 EZETIMIBE (Zetia) 10 mg DAILY PO ; Start 08/23/19 at 09:00 Guaifenesin (Robitussin) 200 mg PRN Q4HRS PRN PO COUGH; Start 08/22/19 at 19:15 Hydromorphone HCl (Dilaudid) 8 mg PRN Q4HRS PRN PO PAIN Last administered on 08/23/19at 08:37; Start 08/22/19 at 19:15 Insulin Glargine (Lantus Syringe) 10 unit QHS SQ ; Start 08/22/19 at 21:00 Insulin Human Lispro (HumaLOG) 0-7 UNITS TIDWMEALS SQ ; Start 08/22/19 at 19:30 Lorazepam (Ativan) 0.5 mg PRN Q4HRS PRN PO ANXIETY / AGITATION; Start 08/22/19 at 19:15 Meropenem 500 mg/ Sodium Chloride 50 ml @ 100 mls/hr Q6HRS IV Last administered on 08/23/19at 06:06; Start 08/23/19 at 00:00 Non-Formulary Medication (Hydromorphone Hcl (Dilaudid)) 1 tab PRN Q4HRS PRN PO pain; Start 08/22/19 at 20:30; Status UNV Ondansetron HCl (Zofran) 4 mg PRN Q4HRS PRN IV NAUSEA/VOMITING; Start 08/22/19 at 19:15; Stop 08/22/19 at 20:25; Status DC Ondansetron HCl (Zofran) 4 mg PRN Q4HRS PRN IV NAUSEA/VOMITING; Start 08/22/19 at 20:30 Pantoprazole Sodium (Protonix) 40 mg QHS PO Last administered on 08/22/19at 21:42; Start 08/22/19 at 21:00 Potassium Chloride (Klor-Con) 10 meq DAILY PO ; Start 08/23/19 at 09:00 Triamterene/HCTZ (Maxzide 37.5/ 25mg) 2 tab DAILY PO ; Start 08/23/19 at 09:00 Zolpidem Tartrate (Ambien) 5 mg PRN QHS PRN PO INSOMNIA; Start 08/22/19 at 19:15 Zolpidem Tartrate (Ambien) 5 mg PRN QHS PRN PO INSOMNIA; Start 08/22/19 at 20:30; Status UNV Allergy Allergies Coded Allergies Type Severity Reaction Last Updated Verified Sulfa (Sulfonamide Antibiotics) Allergy Intermediate Rash, Nausea and Vomiting 07/25/19 Yes cephalexin Allergy Intermediate RASH, HIVES, NAUSEA/VOMITING 07/25/19 Yes gabapentin Allergy Intermediate RASH, ITCHING 07/25/19 Yes hydrocodone Allergy Intermediate Tolerates hydromorphone 07/25/19 Yes metformin Allergy Intermediate 07/25/19 Yes oxymorphone Allergy Intermediate 07/25/19 Yes bupropion Adverse Reaction Intermediate "MAKES HER CRAZY" 07/25/19 Yes oxycodone Adverse Reaction Intermediate Nausea and Vomiting 07/25/19 Yes rosuvastatin Adverse Reaction Intermediate MUSCLE ACHING 07/25/19 Yes Physical Exam Physical Exam GENERAL: Propped up in bed, alert, alert in NAD HEENT: Oral cavity clear, no thrush NECK: Supple LUNGS: Clear. HEART: S1, S2 regular. ABDOMEN: Soft, bowel sounds present, nontender EXTREMITIES: Right knee dressing intact, did not take it down, NEUROLOGIC: Alert and oriented x 3. Grossly nonfocal RUE- PICC line without signs of complications Micro Additional Susceptibility Requested: Corynebacterium species DAPTOMYCIN= S 0.25 Cefotaxime (non-meningitis) R> 2 Ceftriaxone (non-meningitis) I =2 Meropenem S =0.25 Penicillin IV (non-mening) I =1 Tetracycline R> 4 Trimethoprim/Sulfa R> 2 Repeat culture so far negative from explantation 08/15/2019 Labs Laboratory Tests Test 08/22/19 19:45 08/22/19 21:10 08/23/19 07:27 08/23/19 11:20 White Blood Count 9.8 x10^3/uL (4.0-11.0) Red Blood Count 3.38 x10^6/uL (3.50-5.40) Hemoglobin 9.5 g/dL (12.0-15.5) Hematocrit 28.7 % (36.0-47.0) Mean Corpuscular Volume 85 fL (79-100) Mean Corpuscular Hemoglobin 28 pg (25-35) Mean Corpuscular Hemoglobin Concent 33 g/dL (31-37) Red Cell Distribution Width 15.9 % (11.5-14.5) Platelet Count 445 x10^3/uL (140-400) Neutrophils (%) (Auto) 63 % (31-73) Lymphocytes (%) (Auto) 17 % (24-48) Monocytes (%) (Auto) 6 % (0-9) Eosinophils (%) (Auto) 13 % (0-3) Basophils (%) (Auto) 1 % (0-3) Neutrophils # (Auto) 6.2 x10^3/uL (1.8-7.7) Lymphocytes # (Auto) 1.7 x10^3/uL (1.0-4.8) Monocytes # (Auto) 0.6 x10^3/uL (0.0-1.1) Eosinophils # (Auto) 1.3 x10^3/uL (0.0-0.7) Basophils # (Auto) 0.1 x10^3/uL (0.0-0.2) Segmented Neutrophils % 73 % (35-66) Lymphocytes % 16 % (24-48) Monocytes % 3 % (0-10) Eosinophils % 8 % (0-5) Platelet Estimate Increased (ADEQUATE) Polychromasia Occasional Basophilic Stippling Present Prothrombin Time 12.9 SEC (11.7-14.0) Prothromb Time International Ratio 1.0 (0.8-1.1) Sodium Level 135 mmol/L (136-145) Potassium Level 3.8 mmol/L (3.5-5.1) Chloride Level 99 mmol/L (98-107) Carbon Dioxide Level 32 mmol/L (21-32) Anion Gap 4 (6-14) Blood Urea Nitrogen 13 mg/dL (7-20) Creatinine 0.9 mg/dL (0.6-1.0) Estimated GFR (Cockcroft-Gault) 62.1 Glucose Level 114 mg/dL (70-99) Calcium Level 9.0 mg/dL (8.5-10.1) Glucose (Fingerstick) 143 mg/dL (70-99) 112 mg/dL (70-99) 122 mg/dL (70-99) Laboratory Tests Test 08/22/19 19:45 08/22/19 21:10 08/23/19 07:27 08/23/19 11:20 White Blood Count 9.8 x10^3/uL (4.0-11.0) Red Blood Count 3.38 x10^6/uL (3.50-5.40) Hemoglobin 9.5 g/dL (12.0-15.5) Hematocrit 28.7 % (36.0-47.0) Mean Corpuscular Volume 85 fL (79-100) Mean Corpuscular Hemoglobin 28 pg (25-35) Mean Corpuscular Hemoglobin Concent 33 g/dL (31-37) Red Cell Distribution Width 15.9 % (11.5-14.5) Platelet Count 445 x10^3/uL (140-400) Neutrophils (%) (Auto) 63 % (31-73) Lymphocytes (%) (Auto) 17 % (24-48) Monocytes (%) (Auto) 6 % (0-9) Eosinophils (%) (Auto) 13 % (0-3) Basophils (%) (Auto) 1 % (0-3) Neutrophils # (Auto) 6.2 x10^3/uL (1.8-7.7) Lymphocytes # (Auto) 1.7 x10^3/uL (1.0-4.8) Monocytes # (Auto) 0.6 x10^3/uL (0.0-1.1) Eosinophils # (Auto) 1.3 x10^3/uL (0.0-0.7) Basophils # (Auto) 0.1 x10^3/uL (0.0-0.2) Segmented Neutrophils % 73 % (35-66) Lymphocytes % 16 % (24-48) Monocytes % 3 % (0-10) Eosinophils % 8 % (0-5) Platelet Estimate Increased (ADEQUATE) Polychromasia Occasional Basophilic Stippling Present Prothrombin Time 12.9 SEC (11.7-14.0) Prothromb Time International Ratio 1.0 (0.8-1.1) Sodium Level 135 mmol/L (136-145) Potassium Level 3.8 mmol/L (3.5-5.1) Chloride Level 99 mmol/L (98-107) Carbon Dioxide Level 32 mmol/L (21-32) Anion Gap 4 (6-14) Blood Urea Nitrogen 13 mg/dL (7-20) Creatinine 0.9 mg/dL (0.6-1.0) Estimated GFR (Cockcroft-Gault) 62.1 Glucose Level 114 mg/dL (70-99) Calcium Level 9.0 mg/dL (8.5-10.1) Glucose (Fingerstick) 143 mg/dL (70-99) 112 mg/dL (70-99) 122 mg/dL (70-99) Vitals Vital Signs Date Time Temp Pulse Resp B/P (MAP) Pulse Ox O2 Delivery O2 Flow Rate FiO2 08/23/19 11:00 98.4 82 17 137/64 (88) 92 Room Air 98.4 Assessment Assessment Patient with very complicated surgical history of right knee with 9 previous surgeries last one on August 15, 2019 with explant of hardware from right knee Readmitted to [facility] from [facility] with complaints of bleeding from right knee August 22, 2019. Patient denies any trauma. August 15, 2019 Status post removal of right knee joint implant and plate and screw hardware with debridement and placement of non-articulating antibiotic spacer History of persistent drainage from the right knee July 2019 07/25/2019 s/p I and D Right knee with poly exchange and extensor mechanism repair done -07/24 intraoperative cultures positive for Corynebacterium species ( S vancomycin, gentamicin,R erythromycin; Dapto TANYA 0.25, Merrem 0.25) - ESR 23 on 08/09 - CRP 108 -Continue to have drainage postoperatively , serosanguineous, now with wound VAC -Concern for mechanical defect H/o right TKA 08/25/2016 - 11/03/2016, exploration I and D and poly exchange. - 04/16/2017, explantation of the right knee. -07/06/2017, Reimplantation and ORIF on the medial condylar fracture. -05/17/2018, patellar reconstruction with allograft repair. -06/10/2018, exploration and debridement of the right knee. -04/18/2019, she had an extensor mechanism reconstruction with allograft tissue H/o renal cancer, status post left nephrectomy; mild renal insufficiency Diabetes Hypertension Obesity Gastroesophageal reflux disease Plan Plan See last ID note for full details Very complicated case Patient is awaiting 10th surgery on the right knee today for evacuation of ? Hematoma Continue daptomycin, 07/25, susceptible strain Merrem 08/07, susceptible strain Awaiting orthopedic surgery later today by Dr. De La Cruz per team Labs for a.m. ordered Monitor for antimicrobial toxicities Continue probiotics Plans for transfer to [facility] for second opinion last admission was attempted Unfortunately, was not able to evaluate patient for several weeks d/t full case load per DR Moulton team at [facility]. (see Dr. De La Cruz's progress note from 08/10 for further details). Patient remains at risk of multiple complications including failure of treatment despite aggressive medical and surgical management,high risk of limb loss etc Discussed with nursing staff DEEDEE GREEN MD Aug 23, 2019 11:52
--- NOTE | 2019-08-23 14:13 | PDOC ---
PROGRESS NOTES Chief Complaint Chief Complaint Right knee pain rule out hemarthrosis Essential hypertension Diabetes mellitus type 2 Obesity with a BMI of 35 History of renal cancer status post left nephrectomy History of MRSA History of right knee arthroplasty with several revisions poly-exchange and extensor mechanism repair done on 07/25/2019 History of Present Illness History of Present Illness ID consult changed abx Pain 09/21, cont large dose dilaudid prn, mult allergies noted to OR Vitals Vitals Vital Signs Date Time Temp Pulse Resp B/P (MAP) Pulse Ox O2 Delivery O2 Flow Rate FiO2 08/23/19 11:00 98.4 82 17 137/64 (88) 92 Room Air 98.4 Physical Exam General: Alert, Cooperative, moderate distress Heart: Regular rate Lungs: Clear Labs LABS Laboratory Tests Test 08/22/19 18:30 08/22/19 19:45 08/22/19 21:10 08/23/19 07:27 Coronavirus (COVID-19)(PCR) Negative (NEGATIVE) White Blood Count 9.8 x10^3/uL (4.0-11.0) Red Blood Count 3.38 x10^6/uL (3.50-5.40) Hemoglobin 9.5 g/dL (12.0-15.5) Hematocrit 28.7 % (36.0-47.0) Mean Corpuscular Volume 85 fL (79-100) Mean Corpuscular Hemoglobin 28 pg (25-35) Mean Corpuscular Hemoglobin Concent 33 g/dL (31-37) Red Cell Distribution Width 15.9 % (11.5-14.5) Platelet Count 445 x10^3/uL (140-400) Neutrophils (%) (Auto) 63 % (31-73) Lymphocytes (%) (Auto) 17 % (24-48) Monocytes (%) (Auto) 6 % (0-9) Eosinophils (%) (Auto) 13 % (0-3) Basophils (%) (Auto) 1 % (0-3) Neutrophils # (Auto) 6.2 x10^3/uL (1.8-7.7) Lymphocytes # (Auto) 1.7 x10^3/uL (1.0-4.8) Monocytes # (Auto) 0.6 x10^3/uL (0.0-1.1) Eosinophils # (Auto) 1.3 x10^3/uL (0.0-0.7) Basophils # (Auto) 0.1 x10^3/uL (0.0-0.2) Segmented Neutrophils % 73 % (35-66) Lymphocytes % 16 % (24-48) Monocytes % 3 % (0-10) Eosinophils % 8 % (0-5) Platelet Estimate Increased (ADEQUATE) Polychromasia Occasional Basophilic Stippling Present Prothrombin Time 12.9 SEC (11.7-14.0) Prothromb Time International Ratio 1.0 (0.8-1.1) Sodium Level 135 mmol/L (136-145) Potassium Level 3.8 mmol/L (3.5-5.1) Chloride Level 99 mmol/L (98-107) Carbon Dioxide Level 32 mmol/L (21-32) Anion Gap 4 (6-14) Blood Urea Nitrogen 13 mg/dL (7-20) Creatinine 0.9 mg/dL (0.6-1.0) Estimated GFR (Cockcroft-Gault) 62.1 Glucose Level 114 mg/dL (70-99) Calcium Level 9.0 mg/dL (8.5-10.1) Glucose (Fingerstick) 143 mg/dL (70-99) 112 mg/dL (70-99) Test 08/23/19 11:20 Glucose (Fingerstick) 122 mg/dL (70-99) Comment Review of Relevant I have reviewed the following items dieter (where applicable) has been applied. Labs Laboratory Tests Test 08/22/19 18:30 08/22/19 19:45 08/22/19 21:10 08/23/19 07:27 Coronavirus (COVID-19)(PCR) Negative (NEGATIVE) White Blood Count 9.8 x10^3/uL (4.0-11.0) Red Blood Count 3.38 x10^6/uL (3.50-5.40) Hemoglobin 9.5 g/dL (12.0-15.5) Hematocrit 28.7 % (36.0-47.0) Mean Corpuscular Volume 85 fL (79-100) Mean Corpuscular Hemoglobin 28 pg (25-35) Mean Corpuscular Hemoglobin Concent 33 g/dL (31-37) Red Cell Distribution Width 15.9 % (11.5-14.5) Platelet Count 445 x10^3/uL (140-400) Neutrophils (%) (Auto) 63 % (31-73) Lymphocytes (%) (Auto) 17 % (24-48) Monocytes (%) (Auto) 6 % (0-9) Eosinophils (%) (Auto) 13 % (0-3) Basophils (%) (Auto) 1 % (0-3) Neutrophils # (Auto) 6.2 x10^3/uL (1.8-7.7) Lymphocytes # (Auto) 1.7 x10^3/uL (1.0-4.8) Monocytes # (Auto) 0.6 x10^3/uL (0.0-1.1) Eosinophils # (Auto) 1.3 x10^3/uL (0.0-0.7) Basophils # (Auto) 0.1 x10^3/uL (0.0-0.2) Segmented Neutrophils % 73 % (35-66) Lymphocytes % 16 % (24-48) Monocytes % 3 % (0-10) Eosinophils % 8 % (0-5) Platelet Estimate Increased (ADEQUATE) Polychromasia Occasional Basophilic Stippling Present Prothrombin Time 12.9 SEC (11.7-14.0) Prothromb Time International Ratio 1.0 (0.8-1.1) Sodium Level 135 mmol/L (136-145) Potassium Level 3.8 mmol/L (3.5-5.1) Chloride Level 99 mmol/L (98-107) Carbon Dioxide Level 32 mmol/L (21-32) Anion Gap 4 (6-14) Blood Urea Nitrogen 13 mg/dL (7-20) Creatinine 0.9 mg/dL (0.6-1.0) Estimated GFR (Cockcroft-Gault) 62.1 Glucose Level 114 mg/dL (70-99) Calcium Level 9.0 mg/dL (8.5-10.1) Glucose (Fingerstick) 143 mg/dL (70-99) 112 mg/dL (70-99) Test 08/23/19 11:20 Glucose (Fingerstick) 122 mg/dL (70-99) Laboratory Tests Test 08/22/19 18:30 08/22/19 19:45 08/22/19 21:10 08/23/19 07:27 Coronavirus (COVID-19)(PCR) Negative (NEGATIVE) White Blood Count 9.8 x10^3/uL (4.0-11.0) Red Blood Count 3.38 x10^6/uL (3.50-5.40) Hemoglobin 9.5 g/dL (12.0-15.5) Hematocrit 28.7 % (36.0-47.0) Mean Corpuscular Volume 85 fL (79-100) Mean Corpuscular Hemoglobin 28 pg (25-35) Mean Corpuscular Hemoglobin Concent 33 g/dL (31-37) Red Cell Distribution Width 15.9 % (11.5-14.5) Platelet Count 445 x10^3/uL (140-400) Neutrophils (%) (Auto) 63 % (31-73) Lymphocytes (%) (Auto) 17 % (24-48) Monocytes (%) (Auto) 6 % (0-9) Eosinophils (%) (Auto) 13 % (0-3) Basophils (%) (Auto) 1 % (0-3) Neutrophils # (Auto) 6.2 x10^3/uL (1.8-7.7) Lymphocytes # (Auto) 1.7 x10^3/uL (1.0-4.8) Monocytes # (Auto) 0.6 x10^3/uL (0.0-1.1) Eosinophils # (Auto) 1.3 x10^3/uL (0.0-0.7) Basophils # (Auto) 0.1 x10^3/uL (0.0-0.2) Segmented Neutrophils % 73 % (35-66) Lymphocytes % 16 % (24-48) Monocytes % 3 % (0-10) Eosinophils % 8 % (0-5) Platelet Estimate Increased (ADEQUATE) Polychromasia Occasional Basophilic Stippling Present Prothrombin Time 12.9 SEC (11.7-14.0) Prothromb Time International Ratio 1.0 (0.8-1.1) Sodium Level 135 mmol/L (136-145) Potassium Level 3.8 mmol/L (3.5-5.1) Chloride Level 99 mmol/L (98-107) Carbon Dioxide Level 32 mmol/L (21-32) Anion Gap 4 (6-14) Blood Urea Nitrogen 13 mg/dL (7-20) Creatinine 0.9 mg/dL (0.6-1.0) Estimated GFR (Cockcroft-Gault) 62.1 Glucose Level 114 mg/dL (70-99) Calcium Level 9.0 mg/dL (8.5-10.1) Glucose (Fingerstick) 143 mg/dL (70-99) 112 mg/dL (70-99) Test 08/23/19 11:20 Glucose (Fingerstick) 122 mg/dL (70-99) Medications Current Medications Hydromorphone HCl (Dilaudid) 8 mg PRN Q4HRS PRN PO PAIN Last administered on 08/23/19at 13:51; Start 08/22/19 at 19:15 Ondansetron HCl (Zofran) 4 mg PRN Q4HRS PRN IV NAUSEA/VOMITING; Start 08/22/19 at 19:15; Stop 08/22/19 at 20:25; Status DC Zolpidem Tartrate (Ambien) 5 mg PRN QHS PRN PO INSOMNIA; Start 08/22/19 at 19:15 Acetaminophen (Tylenol) 650 mg PRN Q4HRS PRN PO TEMP OVER 100.4F OR MILD PAIN; Start 08/22/19 at 19:15 Docusate Sodium (Colace) 100 mg PRN BID PRN PO HARD STOOLS; Start 08/22/19 at 19:15 Albuterol Sulfate (Ventolin Neb Soln) 2.5 mg PRN Q4HRS PRN NEB SHORTNESS OF BREATH; Start 08/22/19 at 19:15 Guaifenesin (Robitussin) 200 mg PRN Q4HRS PRN PO COUGH; Start 08/22/19 at 19:15 Lorazepam (Ativan) 0.5 mg PRN Q4HRS PRN PO ANXIETY / AGITATION; Start 08/22/19 at 19:15 Insulin Human Lispro (HumaLOG) 0-7 UNITS TIDWMEALS SQ ; Start 08/22/19 at 19:30 Dextrose (Dextrose 50%-Water Syringe) 12.5 gm PRN Q15MIN PRN IV SEE COMMENTS; Start 08/22/19 at 19:15 Carvedilol (Coreg) 6.25 mg BIDWMEALS PO Last administered on 08/23/19at 08:39; Start 08/22/19 at 20:00 Ergocalciferol (Vitamin D2) 50,000 unit QSU PO ; Start 08/27/19 at 16:00 EZETIMIBE (Zetia) 10 mg DAILY PO ; Start 08/23/19 at 09:00 Potassium Chloride (Klor-Con) 10 meq DAILY PO ; Start 08/23/19 at 09:00 Pantoprazole Sodium (Protonix) 40 mg QHS PO Last administered on 08/22/19at 21:42; Start 08/22/19 at 21:00 Triamterene/HCTZ (Maxzide 37.5/ 25mg) 2 tab DAILY PO ; Start 08/23/19 at 09:00 Insulin Glargine (Lantus Syringe) 10 unit QHS SQ ; Start 08/22/19 at 21:00 Duloxetine HCl (Cymbalta) 60 mg BID PO Last administered on 08/22/19at 21:42; Start 08/22/19 at 21:00 Citalopram Hydrobromide (CeleXA) 20 mg DAILY PO ; Start 08/23/19 at 09:00 Ondansetron HCl (Zofran) 4 mg PRN Q4HRS PRN IV NAUSEA/VOMITING; Start 08/22/19 at 20:30 Zolpidem Tartrate (Ambien) 5 mg PRN QHS PRN PO INSOMNIA; Start 08/22/19 at 20:30; Status UNV Diphenhydramine HCl (Benadryl) 25 mg PRN Q4HRS PRN IVP ITCHING; Start 08/22/19 at 20:30 Docusate Sodium (Colace) 100 mg PRN BID PRN PO HARD STOOLS; Start 08/22/19 at 20:30; Status UNV Albuterol Sulfate (Ventolin Neb Soln) 2.5 mg PRN Q4HRS PRN NEB SHORTNESS OF BREATH; Start 08/22/19 at 20:30; Status UNV Non-Formulary Medication (Hydromorphone Hcl (Dilaudid)) 1 tab PRN Q4HRS PRN PO pain; Start 08/22/19 at 20:30; Status UNV Meropenem 500 mg/ Sodium Chloride 50 ml @ 100 mls/hr Q6HRS IV Last administered on 08/23/19at 12:21; Start 08/23/19 at 00:00 Daptomycin 460 mg/ Sodium Chloride 50 ml @ 100 mls/hr Q24H IV Last administered on 08/22/19at 21:43; Start 08/22/19 at 21:00 Active Scripts Active Dilaudid (Hydromorphone Hcl) 8 Mg Tablet 1 Tab PO PRN Q4HRS PRN MDD 6 Tablet(s) 14 Days Reported Maxzide 75 Mg-50 Mg Tablet (Triamterene/Hydrochlorothiazid) 1 Each Tablet 1 Tab PO DAILY Protonix (Pantoprazole Sodium) 20 Mg Tablet.dr 20 Mg PO HS Coreg (Carvedilol) 6.25 Mg Tablet 1 Tab PO BID Potassium Chloride (Potassium Chloride) 10 Meq Capsule.er 10 Meq PO UD Zetia (Ezetimibe) 10 Mg Tablet 1 Tab PO DAILY AM Vitamin D2 (Ergocalciferol (Vitamin D2)) 50,000 Unit Capsule 50,000 Unit PO QSU Lexapro (Escitalopram Oxalate) 20 Mg Tablet 40 Mg PO DAILY Cymbalta (Duloxetine Hcl) 60 Mg Capsule.dr 60 Mg PO BID Vitals/I & O Vital Sign - Last 24 Hours 08/22/19 08/22/19 08/22/19 08/22/19 18:07 19:00 20:10 21:42 Temp 98.5 99.1 98.5 99.1 Pulse 78 89 78 Resp 18 20 B/P (MAP) 156/52 (86) 119/65 (83) 156/52 Pulse Ox 94 95 O2 Delivery Room Air Room Air Room Air 08/22/19 08/23/19 08/23/19 08/23/19 23:00 03:00 07:15 08:00 Temp 98.5 98.7 98.4 98.5 98.7 98.4 Pulse 83 76 79 Resp 20 20 16 B/P (MAP) 131/61 (84) 118/56 (76) 132/62 (85) Pulse Ox 93 92 92 O2 Delivery Room Air Room Air Room Air Room Air 08/23/19 08/23/19 08:39 11:00 Temp 98.4 98.4 Pulse 79 82 Resp 17 B/P (MAP) 132/62 137/64 (88) Pulse Ox 92 O2 Delivery Room Air Intake and Output 08/22/19 08/22/19 08/23/19 15:00 23:00 07:00 Intake Total 240 ml 360 ml Output Total 300 ml Balance 240 ml 60 ml DEIRDRE AVILA MD Aug 23, 2019 14:13
[2019-08-23] MEDS ORDERED: IV RINGERS,LACTATED 1000ML 1,000 ML IV SCH (14:19)
[2019-08-23] MEDS ORDERED: fentaNYL PF VIAL 100 MCG/2 ML VIAL IV PRN (14:30)
[2019-08-23] MEDS ORDERED: PROCHLORPERAZINE 10 MG/2 ML VIAL. IV PRN (14:30)
[2019-08-23] MEDS ORDERED: DEXAMETHASONE SOD PHOS 4 MG/ML VIAL ONE (14:37)
[2019-08-23] MEDS ORDERED: LIDOCAINE 2% PF 5 ML VIAL. ONE (14:37)
[2019-08-23] MEDS ORDERED: ONDANSETRON PF 4 MG/2 ML VIAL. ONE (14:37)
[2019-08-23] MEDS ORDERED: PROPOFOL 10 MG/ML (20ML) VIAL. IV ONE (14:37)
[2019-08-23] MEDS ORDERED: VANCOMYCIN 1 GM VIAL. ONE ×2 (18:03→18:08)
[2019-08-23] MEDS ORDERED: SUCCINYLCHOLINE 200 MG/10 ML VIAL. ONE (18:31)
[2019-08-23] MEDS ORDERED: fentaNYL PF VIAL 100 MCG/2 ML VIAL ONE (19:31)
[2019-08-23] MEDS: fentaNYL PF VIAL 100 MCG/2 ML VIAL IV PRN ×2 (19:33→19:57)
--- NOTE | 2019-08-23 19:43 | PDOC4 ---
Operative Note Operative Note Date of surgery: 08/23/2019 Preoperative diagnosis: Right knee wound drainage and instability Postoperative diagnosis: Right knee hematoma and breakage of tibial portion non- articulating antibiotic spacer Operative procedure: Irrigation debridement right knee with hematoma evacuation and revision of antibiotic spacer Surgeon: Jono Anesthesia: General Estimated blood loss: 50 cc, mainly hematoma Complications: None Operative indications: Please see my orthopedic consultation note for detailed operative indications Operative text: Patient was identified procedure verified patient placed in the supine position on the operating table. After adequate amounts of general anesthesia were administered the right lower extremity was prepped and draped in standard sterile fashion and the right lower extremity was examined under anesthesia found to have some gross instability particularly varus valgus at the proximal tibia area and some wound drainage at her distal portion of her anterior midline wound serosanguineous in nature. After informed consent was obtained procedure verified sutures removed and the midline incision was opened and hematoma evacuated no devitalized tissue or purulence was noted but she had a well fixated non-articulating femoral portion of her antibiotic spacer however the tibial portion still had the reinforcing wire intact but the cement had broken away from the tibial shaft portion from the portion between the 2 bones. Thorough irrigation was carried out with 1 L of bactisure and after further debridement was carried out of some of the residual extensor tissue additional reinforcing 18-gauge wire was braided and placed with the leg in slight flexion and a total of 2 batches of rally high viscosity bone cement were mixed with 2 g of vancomycin total by simple mixing without vacuum. With the leg held in the desired position additional antibiotic loaded cement was placed to stabilize and adhere to the section down the tibial shaft with the leg held in place until cement dried completely. Additional thorough irrigation carried out normal saline solution and as there was not adequate extensor mechanism for closure skin and subcutaneous closure was accomplished with tension relieving #2 nylon suture and eversion assured with the remaining closure of 2-0 nylon suture with a vertical mattress fashion throughout. Sterile dressings were applied she was placed in a hinged knee brace that was locked in 10 degrees of knee flexion and was returned to recovery room in stable condition having tolerated procedure well LESLIE PEREZ MD Aug 23, 2019 19:43
[2019-08-23] MEDS ORDERED: SEVOFLURANE > 120 MINUTES. IH ONE (19:44)
[2019-08-23] MEDS ORDERED: ROPIVacaine 0.5% PF 20 ML VIAL. ONE (19:47)
[2019-08-23] MEDS: PANTOPRAZOLE 40 MG TABLET.DR. PO SCH (20:48)
[2019-08-23] MEDS: DAPTOmycin (GENERIC) IVPB 460 MG in IV NORMAL SALINE 50ML 50 ML IV SCH (20:49)
[2019-08-23] MEDS: INSULIN GLARGINE SYRINGE. SQ SCH (20:59)
--- NOTE | 2019-08-23 23:32 | CONS ---
DATE OF CONSULTATION: 08/23/2019 ORTHOPEDIC CONSULTATION CHIEF COMPLAINT: Right knee swelling and severe pain. HISTORY OF PRESENT ILLNESS: The patient is a 68-year-old female, familiar to me from multiple previous procedures on her right knee including most recently explantation of her right knee hardware and placement of a non-articulating knee antibiotic spacer due to an incompetent extensor mechanism and infection. She was discharged to rehabilitation and apparently felt a crack and a shift in her leg when she got up at the rehab facility around midnight and has had some ongoing drainage from the knee, although this was initially thought to be hematoma and I did discuss that with the providers at the rehab facility. They were concerned about ongoing bleeding and her ongoing symptoms and she was transferred back to the Emergency Department at [facility] for further evaluation of the knee wound, bleeding and pain. PAST MEDICAL HISTORY: Significant for type 2 diabetes, hypertension, inflammatory bowel disease and history of cancer. PAST SURGICAL HISTORY: Multiple surgeries on her knee, left nephrectomy for renal cancer and also tonsillectomy and hysterectomy. FAMILY HISTORY: Hypertension. SOCIAL HISTORY: No tobacco or drug use. Rare alcohol use. Lives at home with her who is on renal dialysis. MEDICATIONS: List is reviewed. ALLERGIES: SHE HAS MULTIPLE ALLERGIES INCLUDING SULFA, KEFLEX, GABAPENTIN, HYDROCODONE, METFORMIN, OXYCODONE, OXYMORPHONE, ROSUVASTATIN AND BUPROPION. PHYSICAL EXAMINATION: On examination, she has some serosanguineous drainage from the distal aspect of her wound and at the area of the previous knee joint where the spacer was previously non-articulating. IMPRESSION: Right knee wound and some instability. TREATMENT PLAN: I went over with her the need for exploration due to her drainage that she may have a hematoma in the knee and possibly something happened to her spacer based on her description and the movement at her knee and that we would plan on exploration and planned wound closure. All her questions were answered and she agrees to proceed with surgical evaluation and treatment, which will occur pending operating room availability and COVID testing results. LESLIE PEREZ MD DR: VINCE/sherry JOB#: [id number] / [id number]
[2019-08-24] VITALS (7 sets, daily range): BP systolic 110–167; BP diastolic 44–100
[2019-08-24] MEDS: MEROPENEM 500 MG in IV NORMAL SALINE 50ML 50 ML IV SCH ×4 (00:29→17:20)
[2019-08-24 05:24] LABS: BASO # 0.1 x10^3/uL (0.0-0.2); BASO % 1 % (0-3); EOS # 0.1 x10^3/uL (0.0-0.7); EOS % 1 % (0-3); HEMATOCRIT 28.8 % (36.0-47.0); HEMOGLOBIN 9.5 g/dL (12.0-15.5); LYMPH # 0.8 x10^3/uL (1.0-4.8); LYMPH % 8 % (24-48); MEAN CORPUSCULAR HEMOGLOBIN 28 pg (25-35); MEAN CORPUSCULAR HGB CONC 33 g/dL (31-37); MEAN CORPUSCULAR VOLUME 85 fL (79-100); MONO # 0.2 x10^3/uL (0.0-1.1); MONO % 2 % (0-9); NEUT # 9.3 x10^3/uL (1.8-7.7); NEUT % 89 % (31-73); PLATELET COUNT 445 x10^3/uL (140-400); RED BLOOD COUNT 3.37 x10^6/uL (3.50-5.40); RED CELL DISTRIBUTION WIDTH 16.1 % (11.5-14.5); WHITE BLOOD COUNT 10.5 x10^3/uL (4.0-11.0)
[2019-08-24 05:59] LABS: ALBUMIN 2.3 g/dL (3.4-5.0); ALBUMIN/GLOBULIN RATIO 0.6 (1.0-1.7); CALCIUM 8.7 mg/dL (8.5-10.1); CREATININE 0.9 mg/dL (0.6-1.0); GFR 62.1; POTASSIUM 4.4 mmol/L (3.5-5.1); TOTAL BILIRUBIN 0.4 mg/dL (0.2-1.0); TOTAL PROTEIN 5.9 g/dL (6.4-8.2)
[2019-08-24] MEDS: INSULIN LISPRO 300 UNITS/3 ML VIAL. SQ SCH ×3 (08:00→17:25)
[2019-08-24] MEDS: TRIAMTERENE/HCTZ 37.5/25MG TABLET. PO SCH (09:00)
[2019-08-24] MEDS: CARVEDILOL 6.25 MG TABLET. PO SCH ×2 (10:15→17:18)
[2019-08-24] MEDS: POTASSIUM CHLORIDE 10 MEQ TABLET.ER. PO SCH (10:15)
[2019-08-24] MEDS: CITALOPRAM 20 MG TABLET. PO SCH (10:15)
[2019-08-24] MEDS: DULoxetine HCL 30 MG CAPSULE.DR PO SCH ×2 (10:15→21:39)
[2019-08-24] MEDS: HYDROmorphone 4 MG TABLET PO PRN ×3 (10:15→19:28)
[2019-08-24] MEDS: EZETIMIBE 10 MG TABLET. PO SCH (10:16)
--- NOTE | 2019-08-24 10:48 | PDOC ---
Infectious Disease Note Subjective: Subjective Patient underwent surgery yesterday Right knee pain is tolerable Denies fever, nausea, vomiting, shortness of breath, diarrhea, abdominal pain, rash Otherwise as above Vital Signs: Vital Signs Vital Signs Date Time Temp Pulse Resp B/P (MAP) Pulse Ox O2 Delivery O2 Flow Rate FiO2 08/24/19 10:15 78 128/59 08/24/19 07:40 Nasal Cannula 1.5 08/24/19 07:00 98.0 18 98 98.0 Physical Exam: PHYSICAL EXAM GENERAL: Propped up in bed, alert, alert in NAD HEENT: Oral cavity clear, no thrush NECK: Supple LUNGS: Clear. HEART: S1, S2 regular. ABDOMEN: Soft, bowel sounds present, nontender EXTREMITIES: Right knee dressing intact, did not take it down, NEUROLOGIC: Alert and oriented x 3. Grossly nonfocal RUE- PICC line without signs of complications Medications: Inpatient Meds: Current Medications Medications (Trade) Dose Ordered Sig/Hina Start Time Stop Time Status Last Admin Dose Admin Acetaminophen (Tylenol) 650 mg PRN Q4HRS PRN 08/22/19 19:15 Albuterol Sulfate (Ventolin Neb Soln) 2.5 mg PRN Q4HRS PRN 08/22/19 20:30 UNV Carvedilol (Coreg) 6.25 mg BIDWMEALS 08/22/19 20:00 08/24/19 10:15 6.25 MG Citalopram Hydrobromide (CeleXA) 20 mg DAILY 08/23/19 09:00 08/24/19 10:15 20 MG Daptomycin 460 mg/ Sodium Chloride 50 ml @ 100 mls/hr Q24H 08/22/19 21:00 08/23/19 20:49 100 MLS/HR Dexamethasone Sodium Phosphate (Decadron) 4 mg STK-MED ONCE 08/23/19 14:37 08/23/19 14:38 DC Dextrose (Dextrose 50%-Water Syringe) 12.5 gm PRN Q15MIN PRN 08/22/19 19:15 Diphenhydramine HCl (Benadryl) 25 mg PRN Q4HRS PRN 08/22/19 20:30 Docusate Sodium (Colace) 100 mg PRN BID PRN 08/22/19 20:30 UNV Duloxetine HCl (Cymbalta) 60 mg BID 08/22/19 21:00 08/24/19 10:15 60 MG Ergocalciferol (Vitamin D2) 50,000 unit QSU 08/27/19 16:00 EZETIMIBE (Zetia) 10 mg DAILY 08/23/19 09:00 08/24/19 10:16 10 MG Fentanyl Citrate (Fentanyl 2ml Vial) 100 mcg STK-MED ONCE 08/23/19 19:31 08/23/19 19:32 DC Guaifenesin (Robitussin) 200 mg PRN Q4HRS PRN 08/22/19 19:15 Hydromorphone HCl (Dilaudid) 2 mg PRN Q1HR PRN 08/23/19 20:00 Insulin Glargine (Lantus Syringe) 10 unit QHS 08/22/19 21:00 08/23/19 20:59 10 UNIT Insulin Human Lispro (HumaLOG) 0-7 UNITS TIDWMEALS 08/22/19 19:30 Lidocaine HCl (Lidocaine Pf 2% Vial) 5 ml STK-MED ONCE 08/23/19 14:37 08/23/19 14:38 DC Lorazepam (Ativan) 0.5 mg PRN Q4HRS PRN 08/22/19 19:15 Meropenem 500 mg/ Sodium Chloride 50 ml @ 100 mls/hr Q6HRS 08/24/19 00:00 08/24/19 05:30 100 MLS/HR Non-Formulary Medication (Hydromorphone Hcl (Dilaudid)) 1 tab PRN Q4HRS PRN 08/22/19 20:30 UNV Ondansetron HCl (Zofran) 4 mg STK-MED ONCE 08/23/19 14:37 08/23/19 14:38 DC Pantoprazole Sodium (Protonix) 40 mg QHS 08/22/19 21:00 08/23/19 20:48 40 MG Potassium Chloride (Klor-Con) 10 meq DAILY 08/23/19 09:00 08/24/19 10:15 10 MEQ Prochlorperazine Edisylate (Compazine) 5 mg PACU PRN PRN 08/23/19 14:30 08/23/19 20:01 DC Propofol (Diprivan) 200 mg STK-MED ONCE 08/23/19 14:37 08/23/19 14:38 DC Ringer's Solution 1,000 ml @ 30 mls/hr Q24H 08/23/19 14:19 08/24/19 02:18 DC Ropivacaine (Naropin 0.5%) 20 ml STK-MED ONCE 08/23/19 19:47 08/23/19 19:47 DC Sevoflurane (Ultane) 90 ml STK-MED ONCE 08/23/19 19:44 08/23/19 19:44 DC Succinylcholine Chloride (Anectine) 200 mg STK-MED ONCE 08/23/19 18:31 08/23/19 18:31 DC Triamterene/HCTZ (Maxzide 37.5/ 25mg) 2 tab DAILY 08/23/19 09:00 08/24/19 09:00 2 TAB Vancomycin HCl (Vancomycin) 1 gm STK-MED ONCE 08/23/19 18:08 08/23/19 18:09 DC 08/23/19 18:08 1 GM Zolpidem Tartrate (Ambien) 5 mg PRN QHS PRN 08/22/19 20:30 UNV Labs: Lab Laboratory Tests Test 08/23/19 11:20 08/23/19 20:47 08/24/19 05:14 08/24/19 07:32 Glucose (Fingerstick) 122 mg/dL (70-99) 163 mg/dL (70-99) 168 mg/dL (70-99) White Blood Count 10.5 x10^3/uL (4.0-11.0) Red Blood Count 3.37 x10^6/uL (3.50-5.40) Hemoglobin 9.5 g/dL (12.0-15.5) Hematocrit 28.8 % (36.0-47.0) Mean Corpuscular Volume 85 fL (79-100) Mean Corpuscular Hemoglobin 28 pg (25-35) Mean Corpuscular Hemoglobin Concent 33 g/dL (31-37) Red Cell Distribution Width 16.1 % (11.5-14.5) Platelet Count 445 x10^3/uL (140-400) Neutrophils (%) (Auto) 89 % (31-73) Lymphocytes (%) (Auto) 8 % (24-48) Monocytes (%) (Auto) 2 % (0-9) Eosinophils (%) (Auto) 1 % (0-3) Basophils (%) (Auto) 1 % (0-3) Neutrophils # (Auto) 9.3 x10^3/uL (1.8-7.7) Lymphocytes # (Auto) 0.8 x10^3/uL (1.0-4.8) Monocytes # (Auto) 0.2 x10^3/uL (0.0-1.1) Eosinophils # (Auto) 0.1 x10^3/uL (0.0-0.7) Basophils # (Auto) 0.1 x10^3/uL (0.0-0.2) Sodium Level 136 mmol/L (136-145) Potassium Level 4.4 mmol/L (3.5-5.1) Chloride Level 100 mmol/L (98-107) Carbon Dioxide Level 30 mmol/L (21-32) Anion Gap 6 (6-14) Blood Urea Nitrogen 20 mg/dL (7-20) Creatinine 0.9 mg/dL (0.6-1.0) Estimated GFR (Cockcroft-Gault) 62.1 BUN/Creatinine Ratio 22 (6-20) Glucose Level 202 mg/dL (70-99) Calcium Level 8.7 mg/dL (8.5-10.1) Total Bilirubin 0.4 mg/dL (0.2-1.0) Aspartate Amino Transf (AST/SGOT) 20 U/L (15-37) Alanine Aminotransferase (ALT/SGPT) 35 U/L (14-59) Alkaline Phosphatase 64 U/L (46-116) Creatine Kinase 64 U/L (26-192) Total Protein 5.9 g/dL (6.4-8.2) Albumin 2.3 g/dL (3.4-5.0) Albumin/Globulin Ratio 0.6 (1.0-1.7) Micro Micro Additional Susceptibility Requested: Corynebacterium species DAPTOMYCIN= S 0.25 Cefotaxime (non-meningitis) R> 2 Ceftriaxone (non-meningitis) I =2 Meropenem S =0.25 Penicillin IV (non-mening) I =1 Tetracycline R> 4 Trimethoprim/Sulfa R> Repeat culture so far negative from explantation 08/15/2019 Labs Objective: Assessment: Right knee hematoma and breakage of tibial portion non-articulating antibiotic spacer this admission August 22, 2019 August 22/2020 Status post Irrigation and debridement right knee with hematoma evacuation and revision of antibiotic spacer Awaiting future right knee revision surgery at [facility] orthopedics with Dr. Moulton/Chavo per pt report Multiple surgeries right knee till date August 15, 2019 Status post removal of right knee joint implant and plate and screw hardware with debridement and placement of non-articulating antibiotic spacer -Cultures negative so far History of persistent drainage from the right knee July 2019 07/25/2019 s/p I and D Right knee with poly exchange and extensor mechanism repair done -07/24 intraoperative cultures positive for Corynebacterium species ( S vancomycin, gentamicin,R erythromycin; Dapto TANYA 0.25, Merrem 0.25) - ESR 23 on 08/09 - CRP 108 -Continue to have drainage postoperatively , serosanguineous, now with wound VAC -Concern for mechanical defect H/o right TKA 08/25/2016 - 11/03/2016, exploration I and D and poly exchange. - 04/16/2017, explantation of the right knee. -07/06/2017, Reimplantation and ORIF on the medial condylar fracture. -05/17/2018, patellar reconstruction with allograft repair. -06/10/2018, exploration and debridement of the right knee. -04/18/2019, she had an extensor mechanism reconstruction with allograft tissue H/o renal cancer, status post left nephrectomy; mild renal insufficiency Diabetes Hypertension Obesity Gastroesophageal reflux disease Plan: Plan of Care Very complicated case Continue daptomycin, 07/25, susceptible strain CPK 64 on 08/23 Merrem 08/07, susceptible strain Labs for a.m. ordered Monitor for antimicrobial toxicities Continue probiotics Plans for transfer to [facility] for second opinion last admission was attempted Unfortunately, was not able to evaluate patient for several weeks d/t full case load per DR Moulton team at [facility]. (see Dr. De La Cruz's progress note from 08/10 for further details). Local wound care as directed Maintain PICC line Discussed with nursing staff DEEDEE GREEN MD Aug 24, 2019 10:48
--- NOTE | 2019-08-24 12:10 | RAD ---
Right knee 2 views INDICATION: Postop revision antibiotic spacer right knee. COMPARISON: 07/24/2019 right knee x-rays FINDINGS: There has been interval revision of the patient's right total knee arthroplasty with removal of fixation hardware along the medial femoral shaft as well. In their place are intramedullary wires and cement material filling the joint space. There is mild associated soft tissue swelling. No definite joint effusion is seen although detail is obscured on the lateral view by external knee brace. IMPRESSION: Interval revision of right total knee arthroplasty with hardware removal and placement of fixation pins and cement in the right knee joint space. Alignment shows straightening and is otherwise unremarkable. Electronically signed by: Humberto Romero MD (08/24/2019 12:07 PM) [id number]
--- NOTE | 2019-08-24 12:42 | NUR ---
SW following. Discussed with RN, MATTHEW met with pt to discuss return to [facility] (no isolation precautions at the time). Pt agreeable to returning, advised SW the physician had said discharge in 1-2 days. MATTHEW faxed updates to [facility]. MATTHEW will continue to follow.
--- NOTE | 2019-08-24 13:36 | PDOC ---
PROGRESS NOTES Chief Complaint Chief Complaint Right knee pain rule out hemarthrosis Essential hypertension Diabetes mellitus type 2 Obesity with a BMI of 35 History of renal cancer status post left nephrectomy History of MRSA History of right knee arthroplasty with several revisions poly-exchange and extensor mechanism repair done on 07/25/2019 History of Present Illness History of Present Illness ID consult changed abx Pain 09/21, cont large dose dilaudid prn, mult allergies noted to OR Vitals Vitals Vital Signs Date Time Temp Pulse Resp B/P (MAP) Pulse Ox O2 Delivery O2 Flow Rate FiO2 08/24/19 13:00 98.8 93 18 132/100 (111) 98 Room Air 98.8 08/24/19 07:40 1.5 Physical Exam Physical Exam GENERAL: Propped up in bed, alert, alert in NAD HEENT: Oral cavity clear, no thrush NECK: Supple LUNGS: Clear. HEART: S1, S2 regular. ABDOMEN: Soft, bowel sounds present, nontender EXTREMITIES: Right knee dressing intact, did not take it down, NEUROLOGIC: Alert and oriented x 3. Grossly nonfocal RUE- PICC line without signs of complications General: Alert, Cooperative, moderate distress Heart: Regular rate Lungs: Clear Labs LABS Laboratory Tests Test 08/23/19 20:47 08/24/19 05:14 08/24/19 07:32 08/24/19 10:52 Glucose (Fingerstick) 163 mg/dL (70-99) 168 mg/dL (70-99) 144 mg/dL (70-99) White Blood Count 10.5 x10^3/uL (4.0-11.0) Red Blood Count 3.37 x10^6/uL (3.50-5.40) Hemoglobin 9.5 g/dL (12.0-15.5) Hematocrit 28.8 % (36.0-47.0) Mean Corpuscular Volume 85 fL (79-100) Mean Corpuscular Hemoglobin 28 pg (25-35) Mean Corpuscular Hemoglobin Concent 33 g/dL (31-37) Red Cell Distribution Width 16.1 % (11.5-14.5) Platelet Count 445 x10^3/uL (140-400) Neutrophils (%) (Auto) 89 % (31-73) Lymphocytes (%) (Auto) 8 % (24-48) Monocytes (%) (Auto) 2 % (0-9) Eosinophils (%) (Auto) 1 % (0-3) Basophils (%) (Auto) 1 % (0-3) Neutrophils # (Auto) 9.3 x10^3/uL (1.8-7.7) Lymphocytes # (Auto) 0.8 x10^3/uL (1.0-4.8) Monocytes # (Auto) 0.2 x10^3/uL (0.0-1.1) Eosinophils # (Auto) 0.1 x10^3/uL (0.0-0.7) Basophils # (Auto) 0.1 x10^3/uL (0.0-0.2) Sodium Level 136 mmol/L (136-145) Potassium Level 4.4 mmol/L (3.5-5.1) Chloride Level 100 mmol/L (98-107) Carbon Dioxide Level 30 mmol/L (21-32) Anion Gap 6 (6-14) Blood Urea Nitrogen 20 mg/dL (7-20) Creatinine 0.9 mg/dL (0.6-1.0) Estimated GFR (Cockcroft-Gault) 62.1 BUN/Creatinine Ratio 22 (6-20) Glucose Level 202 mg/dL (70-99) Calcium Level 8.7 mg/dL (8.5-10.1) Total Bilirubin 0.4 mg/dL (0.2-1.0) Aspartate Amino Transf (AST/SGOT) 20 U/L (15-37) Alanine Aminotransferase (ALT/SGPT) 35 U/L (14-59) Alkaline Phosphatase 64 U/L (46-116) Creatine Kinase 64 U/L (26-192) Total Protein 5.9 g/dL (6.4-8.2) Albumin 2.3 g/dL (3.4-5.0) Albumin/Globulin Ratio 0.6 (1.0-1.7) Comment Review of Relevant I have reviewed the following items dieter (where applicable) has been applied. Labs Laboratory Tests Test 08/22/19 18:30 08/22/19 19:45 08/22/19 21:10 08/23/19 07:27 Coronavirus (COVID-19)(PCR) Negative (NEGATIVE) White Blood Count 9.8 x10^3/uL (4.0-11.0) Red Blood Count 3.38 x10^6/uL (3.50-5.40) Hemoglobin 9.5 g/dL (12.0-15.5) Hematocrit 28.7 % (36.0-47.0) Mean Corpuscular Volume 85 fL (79-100) Mean Corpuscular Hemoglobin 28 pg (25-35) Mean Corpuscular Hemoglobin Concent 33 g/dL (31-37) Red Cell Distribution Width 15.9 % (11.5-14.5) Platelet Count 445 x10^3/uL (140-400) Neutrophils (%) (Auto) 63 % (31-73) Lymphocytes (%) (Auto) 17 % (24-48) Monocytes (%) (Auto) 6 % (0-9) Eosinophils (%) (Auto) 13 % (0-3) Basophils (%) (Auto) 1 % (0-3) Neutrophils # (Auto) 6.2 x10^3/uL (1.8-7.7) Lymphocytes # (Auto) 1.7 x10^3/uL (1.0-4.8) Monocytes # (Auto) 0.6 x10^3/uL (0.0-1.1) Eosinophils # (Auto) 1.3 x10^3/uL (0.0-0.7) Basophils # (Auto) 0.1 x10^3/uL (0.0-0.2) Segmented Neutrophils % 73 % (35-66) Lymphocytes % 16 % (24-48) Monocytes % 3 % (0-10) Eosinophils % 8 % (0-5) Platelet Estimate Increased (ADEQUATE) Polychromasia Occasional Basophilic Stippling Present Prothrombin Time 12.9 SEC (11.7-14.0) Prothromb Time International Ratio 1.0 (0.8-1.1) Sodium Level 135 mmol/L (136-145) Potassium Level 3.8 mmol/L (3.5-5.1) Chloride Level 99 mmol/L (98-107) Carbon Dioxide Level 32 mmol/L (21-32) Anion Gap 4 (6-14) Blood Urea Nitrogen 13 mg/dL (7-20) Creatinine 0.9 mg/dL (0.6-1.0) Estimated GFR (Cockcroft-Gault) 62.1 Glucose Level 114 mg/dL (70-99) Calcium Level 9.0 mg/dL (8.5-10.1) Glucose (Fingerstick) 143 mg/dL (70-99) 112 mg/dL (70-99) Test 08/23/19 11:20 08/23/19 20:47 08/24/19 05:14 08/24/19 07:32 Glucose (Fingerstick) 122 mg/dL (70-99) 163 mg/dL (70-99) 168 mg/dL (70-99) White Blood Count 10.5 x10^3/uL (4.0-11.0) Red Blood Count 3.37 x10^6/uL (3.50-5.40) Hemoglobin 9.5 g/dL (12.0-15.5) Hematocrit 28.8 % (36.0-47.0) Mean Corpuscular Volume 85 fL (79-100) Mean Corpuscular Hemoglobin 28 pg (25-35) Mean Corpuscular Hemoglobin Concent 33 g/dL (31-37) Red Cell Distribution Width 16.1 % (11.5-14.5) Platelet Count 445 x10^3/uL (140-400) Neutrophils (%) (Auto) 89 % (31-73) Lymphocytes (%) (Auto) 8 % (24-48) Monocytes (%) (Auto) 2 % (0-9) Eosinophils (%) (Auto) 1 % (0-3) Basophils (%) (Auto) 1 % (0-3) Neutrophils # (Auto) 9.3 x10^3/uL (1.8-7.7) Lymphocytes # (Auto) 0.8 x10^3/uL (1.0-4.8) Monocytes # (Auto) 0.2 x10^3/uL (0.0-1.1) Eosinophils # (Auto) 0.1 x10^3/uL (0.0-0.7) Basophils # (Auto) 0.1 x10^3/uL (0.0-0.2) Sodium Level 136 mmol/L (136-145) Potassium Level 4.4 mmol/L (3.5-5.1) Chloride Level 100 mmol/L (98-107) Carbon Dioxide Level 30 mmol/L (21-32) Anion Gap 6 (6-14) Blood Urea Nitrogen 20 mg/dL (7-20) Creatinine 0.9 mg/dL (0.6-1.0) Estimated GFR (Cockcroft-Gault) 62.1 BUN/Creatinine Ratio 22 (6-20) Glucose Level 202 mg/dL (70-99) Calcium Level 8.7 mg/dL (8.5-10.1) Total Bilirubin 0.4 mg/dL (0.2-1.0) Aspartate Amino Transf (AST/SGOT) 20 U/L (15-37) Alanine Aminotransferase (ALT/SGPT) 35 U/L (14-59) Alkaline Phosphatase 64 U/L (46-116) Creatine Kinase 64 U/L (26-192) Total Protein 5.9 g/dL (6.4-8.2) Albumin 2.3 g/dL (3.4-5.0) Albumin/Globulin Ratio 0.6 (1.0-1.7) Test 08/24/19 10:52 Glucose (Fingerstick) 144 mg/dL (70-99) Laboratory Tests Test 08/23/19 20:47 08/24/19 05:14 08/24/19 07:32 08/24/19 10:52 Glucose (Fingerstick) 163 mg/dL (70-99) 168 mg/dL (70-99) 144 mg/dL (70-99) White Blood Count 10.5 x10^3/uL (4.0-11.0) Red Blood Count 3.37 x10^6/uL (3.50-5.40) Hemoglobin 9.5 g/dL (12.0-15.5) Hematocrit 28.8 % (36.0-47.0) Mean Corpuscular Volume 85 fL (79-100) Mean Corpuscular Hemoglobin 28 pg (25-35) Mean Corpuscular Hemoglobin Concent 33 g/dL (31-37) Red Cell Distribution Width 16.1 % (11.5-14.5) Platelet Count 445 x10^3/uL (140-400) Neutrophils (%) (Auto) 89 % (31-73) Lymphocytes (%) (Auto) 8 % (24-48) Monocytes (%) (Auto) 2 % (0-9) Eosinophils (%) (Auto) 1 % (0-3) Basophils (%) (Auto) 1 % (0-3) Neutrophils # (Auto) 9.3 x10^3/uL (1.8-7.7) Lymphocytes # (Auto) 0.8 x10^3/uL (1.0-4.8) Monocytes # (Auto) 0.2 x10^3/uL (0.0-1.1) Eosinophils # (Auto) 0.1 x10^3/uL (0.0-0.7) Basophils # (Auto) 0.1 x10^3/uL (0.0-0.2) Sodium Level 136 mmol/L (136-145) Potassium Level 4.4 mmol/L (3.5-5.1) Chloride Level 100 mmol/L (98-107) Carbon Dioxide Level 30 mmol/L (21-32) Anion Gap 6 (6-14) Blood Urea Nitrogen 20 mg/dL (7-20) Creatinine 0.9 mg/dL (0.6-1.0) Estimated GFR (Cockcroft-Gault) 62.1 BUN/Creatinine Ratio 22 (6-20) Glucose Level 202 mg/dL (70-99) Calcium Level 8.7 mg/dL (8.5-10.1) Total Bilirubin 0.4 mg/dL (0.2-1.0) Aspartate Amino Transf (AST/SGOT) 20 U/L (15-37) Alanine Aminotransferase (ALT/SGPT) 35 U/L (14-59) Alkaline Phosphatase 64 U/L (46-116) Creatine Kinase 64 U/L (26-192) Total Protein 5.9 g/dL (6.4-8.2) Albumin 2.3 g/dL (3.4-5.0) Albumin/Globulin Ratio 0.6 (1.0-1.7) Medications Current Medications Hydromorphone HCl (Dilaudid) 8 mg PRN Q4HRS PRN PO PAIN Last administered on 08/24/19at 10:15; Start 08/22/19 at 19:15 Ondansetron HCl (Zofran) 4 mg PRN Q4HRS PRN IV NAUSEA/VOMITING; Start 08/22/19 at 19:15; Stop 08/22/19 at 20:25; Status DC Zolpidem Tartrate (Ambien) 5 mg PRN QHS PRN PO INSOMNIA; Start 08/22/19 at 19:15 Acetaminophen (Tylenol) 650 mg PRN Q4HRS PRN PO TEMP OVER 100.4F OR MILD PAIN; Start 08/22/19 at 19:15 Docusate Sodium (Colace) 100 mg PRN BID PRN PO HARD STOOLS; Start 08/22/19 at 19:15 Albuterol Sulfate (Ventolin Neb Soln) 2.5 mg PRN Q4HRS PRN NEB SHORTNESS OF BREATH; Start 08/22/19 at 19:15 Guaifenesin (Robitussin) 200 mg PRN Q4HRS PRN PO COUGH; Start 08/22/19 at 19:15 Lorazepam (Ativan) 0.5 mg PRN Q4HRS PRN PO ANXIETY / AGITATION; Start 08/22/19 at 19:15 Insulin Human Lispro (HumaLOG) 0-7 UNITS TIDWMEALS SQ ; Start 08/22/19 at 19:30 Dextrose (Dextrose 50%-Water Syringe) 12.5 gm PRN Q15MIN PRN IV SEE COMMENTS; Start 08/22/19 at 19:15 Carvedilol (Coreg) 6.25 mg BIDWMEALS PO Last administered on 08/24/19at 10:15; Start 08/22/19 at 20:00 Ergocalciferol (Vitamin D2) 50,000 unit QSU PO ; Start 08/27/19 at 16:00 EZETIMIBE (Zetia) 10 mg DAILY PO Last administered on 08/24/19at 10:16; Start 08/23/19 at 09:00 Potassium Chloride (Klor-Con) 10 meq DAILY PO Last administered on 08/24/19at 10:15; Start 08/23/19 at 09:00 Pantoprazole Sodium (Protonix) 40 mg QHS PO Last administered on 08/23/19at 20:48; Start 08/22/19 at 21:00 Triamterene/HCTZ (Maxzide 37.5/ 25mg) 2 tab DAILY PO Last administered on 08/24/19at 09:00; Start 08/23/19 at 09:00 Insulin Glargine (Lantus Syringe) 10 unit QHS SQ Last administered on 08/23/19at 20:59; Start 08/22/19 at 21:00 Duloxetine HCl (Cymbalta) 60 mg BID PO Last administered on 08/24/19at 10:15; Start 08/22/19 at 21:00 Citalopram Hydrobromide (CeleXA) 20 mg DAILY PO Last administered on 08/24/19at 10:15; Start 08/23/19 at 09:00 Ondansetron HCl (Zofran) 4 mg PRN Q4HRS PRN IV NAUSEA/VOMITING; Start 08/22/19 at 20:30 Zolpidem Tartrate (Ambien) 5 mg PRN QHS PRN PO INSOMNIA; Start 08/22/19 at 20:30; Status UNV Diphenhydramine HCl (Benadryl) 25 mg PRN Q4HRS PRN IVP ITCHING; Start 08/22/19 at 20:30 Docusate Sodium (Colace) 100 mg PRN BID PRN PO HARD STOOLS; Start 08/22/19 at 20:30; Status UNV Albuterol Sulfate (Ventolin Neb Soln) 2.5 mg PRN Q4HRS PRN NEB SHORTNESS OF BREATH; Start 08/22/19 at 20:30; Status UNV Non-Formulary Medication (Hydromorphone Hcl (Dilaudid)) 1 tab PRN Q4HRS PRN PO pain; Start 08/22/19 at 20:30; Status UNV Meropenem 500 mg/ Sodium Chloride 50 ml @ 100 mls/hr Q6HRS IV Last administered on 08/23/19at 17:20; Start 08/23/19 at 00:00; Stop 08/24/19 at 00:19; Status DC Daptomycin 460 mg/ Sodium Chloride 50 ml @ 100 mls/hr Q24H IV Last administered on 08/23/19at 20:49; Start 08/22/19 at 21:00 Fentanyl Citrate (Fentanyl 2ml Vial) 25 mcg PRN Q5MIN PRN IV MILD PAIN 1-3; Start 08/23/19 at 14:30; Stop 08/23/19 at 20:01; Status DC Fentanyl Citrate (Fentanyl 2ml Vial) 50 mcg PRN Q5MIN PRN IV MODERATE TO SEVERE PAIN Last administered on 6/10/20at 19:57; Start 08/23/19 at 14:30; Stop 08/23/19 at 20:01; Status DC Ringer's Solution 1,000 ml @ 30 mls/hr Q24H IV ; Start 08/23/19 at 14:19; Stop 08/24/19 at 02:18; Status DC Prochlorperazine Edisylate (Compazine) 5 mg PACU PRN PRN IV NAUSEA, MRX1; Start 08/23/19 at 14:30; Stop 08/23/19 at 20:01; Status DC Propofol (Diprivan) 200 mg STK-MED ONCE IV ; Start 08/23/19 at 14:37; Stop 08/23/19 at 14:38; Status DC Dexamethasone Sodium Phosphate (Decadron) 4 mg STK-MED ONCE .ROUTE ; Start 08/23/19 at 14:37; Stop 08/23/19 at 14:38; Status DC Lidocaine HCl (Lidocaine Pf 2% Vial) 5 ml STK-MED ONCE .ROUTE ; Start 08/23/19 at 14:37; Stop 08/23/19 at 14:38; Status DC Ondansetron HCl (Zofran) 4 mg STK-MED ONCE .ROUTE ; Start 08/23/19 at 14:37; Stop 08/23/19 at 14:38; Status DC Vancomycin HCl (Vancomycin) 1 gm STK-MED ONCE .ROUTE Last administered on at 18:03; Start 08/23/19 at 18:03; Stop 08/23/19 at 18:03; Status DC Vancomycin HCl (Vancomycin) 1 gm STK-MED ONCE .ROUTE Last administered on 08/23/19at 18:08; Start 08/23/19 at 18:08; Stop 08/23/19 at 18:09; Status DC Succinylcholine Chloride (Anectine) 200 mg STK-MED ONCE .ROUTE ; Start 08/23/19 at 18:31; Stop 08/23/19 at 18:31; Status DC Fentanyl Citrate (Fentanyl 2ml Vial) 100 mcg STK-MED ONCE .ROUTE ; Start 08/23/19 at 19:31; Stop 08/23/19 at 19:32; Status DC Sevoflurane (Ultane) 90 ml STK-MED ONCE IH ; Start 08/23/19 at 19:44; Stop 08/23/19 at 19:44; Status DC Ropivacaine (Naropin 0.5%) 20 ml STK-MED ONCE .ROUTE ; Start 08/23/19 at 19:47; Stop 08/23/19 at 19:47; Status DC Hydromorphone HCl (Dilaudid) 2 mg PRN Q1HR PRN IV PAIN; Start 08/23/19 at 20:00 Meropenem 500 mg/ Sodium Chloride 50 ml @ 100 mls/hr Q6HRS IV Last administered on 08/24/19at 11:32; Start 08/24/19 at 00:00 Active Scripts Active Dilaudid (Hydromorphone Hcl) 8 Mg Tablet 1 Tab PO PRN Q4HRS PRN MDD 6 Tablet(s) 14 Days Reported Maxzide 75 Mg-50 Mg Tablet (Triamterene/Hydrochlorothiazid) 1 Each Tablet 1 Tab PO DAILY Protonix (Pantoprazole Sodium) 20 Mg Tablet.dr 20 Mg PO HS Coreg (Carvedilol) 6.25 Mg Tablet 1 Tab PO BID Potassium Chloride (Potassium Chloride) 10 Meq Capsule.er 10 Meq PO UD Zetia (Ezetimibe) 10 Mg Tablet 1 Tab PO DAILY AM Vitamin D2 (Ergocalciferol (Vitamin D2)) 50,000 Unit Capsule 50,000 Unit PO QSU Lexapro (Escitalopram Oxalate) 20 Mg Tablet 40 Mg PO DAILY Cymbalta (Duloxetine Hcl) 60 Mg Capsule.dr 60 Mg PO BID Vitals/I & O Vital Sign - Last 24 Hours 08/23/19 08/23/19 08/23/19 08/23/19 15:00 15:52 19:11 19:11 Temp 98.0 98.0 97.9 98.0 98.0 97.9 Pulse 76 75 88 Resp 18 18 18 B/P (MAP) 127/44 (71) 125/58 183/85 Pulse Ox 96 92 100 O2 Delivery Room Air Room Air Mask Simple Mask O2 Flow Rate 8 8 08/23/19 08/23/19 08/23/19 08/23/19 19:25 19:33 19:40 19:55 Temp 97.9 97.9 97.9 97.9 Pulse 87 87 82 Resp 18 20 18 18 B/P (MAP) 179/104 183/92 186/66 Pulse Ox 98 100 99 94 O2 Delivery Simple Mask Simple Mask Simple Mask Room Air O2 Flow Rate 8 8.0 8 08/23/19 08/23/19 08/23/19 08/23/19 19:57 20:15 20:25 20:45 Temp 98.0 98.3 98.0 98.3 Pulse 88 86 Resp 18 18 20 B/P (MAP) 141/78 (99) 109/67 (81) Pulse Ox 93 94 95 O2 Delivery Room Air Nasal Cannula Nasal Cannula Nasal Cannula O2 Flow Rate 2 2.0 2.0 08/23/19 08/24/19 08/24/19 08/24/19 22:39 02:29 07:00 07:40 Temp 98.8 98.6 98.0 98.8 98.6 98.0 Pulse 84 79 78 Resp 18 20 18 B/P (MAP) 127/49 (75) 167/75 (105) 128/59 (82) Pulse Ox 93 94 98 O2 Delivery Nasal Cannula Nasal Cannula Nasal Cannula Nasal Cannula O2 Flow Rate 1.5 1.5 1.0 1.5 08/24/19 08/24/19 08/24/19 10:15 11:30 13:00 Temp 98.7 98.8 98.7 98.8 Pulse 78 81 93 Resp 18 18 B/P (MAP) 128/59 133/58 (83) 132/100 (111) Pulse Ox 97 98 O2 Delivery Room Air Room Air Intake and Output 08/23/19 08/23/19 08/24/19 15:00 23:00 07:00 Intake Total 0 ml 550 ml 150 ml Output Total 550 ml 300 ml Balance 0 ml 0 ml -150 ml DEIRDRE AVILA MD Aug 24, 2019 13:35
--- NOTE | 2019-08-24 15:39 | NUR ---
Resumed care of patient at approximately 1500, report taken from RADHA Reyna, will continue to monitor patient.
[2019-08-24] MEDS: LACTOBACILLUS RHAMNOSUS GG 1 CAPSULE. PO SCH (21:39)
[2019-08-24] MEDS: HYDROmorphone 2 MG/ML VIAL IV PRN (21:39)
[2019-08-24] MEDS: PANTOPRAZOLE 40 MG TABLET.DR. PO SCH (21:39)
[2019-08-24] MEDS: DAPTOmycin (GENERIC) IVPB 460 MG in IV NORMAL SALINE 50ML 50 ML IV SCH (21:40)
[2019-08-24] MEDS: INSULIN GLARGINE SYRINGE. SQ SCH (21:48)
[2019-08-24] MEDS: ZOLPIDEM 5 MG TABLET. PO PRN (22:25)
--- NOTE | 2019-08-24 23:35 | NUR ---
pt refused bed bath this shift.
[2019-08-25] MEDS: MEROPENEM 500 MG in IV NORMAL SALINE 50ML 50 ML IV SCH ×5 (00:45→23:31)
[2019-08-25] MEDS: HYDROmorphone 4 MG TABLET PO PRN ×4 (01:04→21:49)
[2019-08-25 03:08] VITALS: BP 120/46
[2019-08-25] MEDS: HYDROmorphone 2 MG/ML VIAL IV PRN ×3 (06:22→20:13)
[2019-08-25 06:59] LABS: BASO # 0.1 x10^3/uL (0.0-0.2); BASO % 1 % (0-3); EOS # 0.1 x10^3/uL (0.0-0.7); EOS % 1 % (0-3); HEMOGLOBIN 8.4 g/dL (12.0-15.5); LYMPH # 1.8 x10^3/uL (1.0-4.8); LYMPH % 12 % (24-48); MEAN CORPUSCULAR HEMOGLOBIN 28 pg (25-35); MEAN CORPUSCULAR HGB CONC 33 g/dL (31-37); MEAN CORPUSCULAR VOLUME 86 fL (79-100); MONO # 0.9 x10^3/uL (0.0-1.1); MONO % 6 % (0-9); NEUT # 11.4 x10^3/uL (1.8-7.7); NEUT % 80 % (31-73); PLATELET COUNT 479 x10^3/uL (140-400); RED BLOOD COUNT 3.01 x10^6/uL (3.50-5.40); RED CELL DISTRIBUTION WIDTH 16.5 % (11.5-14.5); WHITE BLOOD COUNT 14.2 x10^3/uL (4.0-11.0)
[2019-08-25 07:00] VITALS: BP 141/68
[2019-08-25] MEDS: INSULIN LISPRO 300 UNITS/3 ML VIAL. SQ SCH ×3 (07:33→16:30)
[2019-08-25] MEDS: EZETIMIBE 10 MG TABLET. PO SCH (07:56)
[2019-08-25] MEDS: TRIAMTERENE/HCTZ 37.5/25MG TABLET. PO SCH (07:56)
[2019-08-25] MEDS: CITALOPRAM 20 MG TABLET. PO SCH (07:57)
[2019-08-25] MEDS: DULoxetine HCL 30 MG CAPSULE.DR PO SCH ×2 (07:57→21:33)
[2019-08-25] MEDS: LACTOBACILLUS RHAMNOSUS GG 1 CAPSULE. PO SCH ×2 (07:57→21:33)
[2019-08-25] MEDS: CARVEDILOL 6.25 MG TABLET. PO SCH ×2 (07:57→17:08)
[2019-08-25] MEDS: POTASSIUM CHLORIDE 10 MEQ TABLET.ER. PO SCH (07:57)
--- NOTE | 2019-08-25 09:09 | NUR ---
SW following. Discussed with RN, pt can return to [facility] when ready. WBC elevated today. SW will continue to follow.
[2019-08-25 09:42] LABS: ALBUMIN 2.5 g/dL (3.4-5.0); ALBUMIN/GLOBULIN RATIO 0.7 (1.0-1.7); C-REACTIVE PROTEIN 13.3 mg/L (0-3.3); CALCIUM 8.7 mg/dL (8.5-10.1); GFR 54.8; TOTAL BILIRUBIN 0.3 mg/dL (0.2-1.0); TOTAL PROTEIN 6.2 g/dL (6.4-8.2)
[2019-08-25 11:00] VITALS: BP 186/60
[2019-08-25] MEDS ORDERED: DAPT350V IV (11:18)
[2019-08-25] MEDS ORDERED: MERO500V22 IV (11:18)
--- NOTE | 2019-08-25 11:20 | SNU/HH DC ---
DISCHARGE ORDERS DISCHARGE INFORMATION: DISCHARGE DATE: Aug 25, 2019 FINAL DIAGNOSIS Right knee pain rule out hemarthrosis Essential hypertension Diabetes mellitus type 2 Obesity with a BMI of 35 History of renal cancer status post left nephrectomy History of MRSA History of right knee arthroplasty with several revisions poly-exchange and extensor mechanism repair done on 07/25/2019 CONDITION ON DISCHARGE: Stable CODE STATUS: Code Status: Full MCFP: SNF STAY <30 DAYS: Yes POST DISCHARGE ORDERS: ACTIVITY ORDERS: Other, see below WEIGHT BEARING STATUS: Touch down weight bearing BATHING ORDERS: Shower-keep dressing dry, No Tub Bath until see WOUND/INCISION CARE: Ice to area for comfort, Change dressing, Reinforce dressing PRN CHECKS AFTER DISCHARGE: CHECKS AFTER DISCHARGE: Check blood press - daily, Check your Temp as needed FOLLOW-UP: PHYSICIAN FOLLOW-UP: ortho, ID, soonn TREATMENT/EQUIPMENT ORDERS: ADAPTIVE EQUIPMENT NEEDED: Front wheeled walker, Wheelchair Physical Therapy For: Evalulation/Treatment Occupational Therapy For: Evaluation/Treatment DISCHARGE MEDICATIONS: Home Meds Active Scripts Hydromorphone Hcl (DILAUDID) 8 Mg Tablet, 1 TAB PO PRN Q4HRS PRN for pain MDD 6 Tablet(s) for 14 Days, #80 TAB 0 Refills Prov:LESLIE PEREZ MD 08/18/19 Reported Medications Triamterene/Hydrochlorothiazid (MAXZIDE 75 MG-50 MG TABLET) 1 Each Tablet, 1 TAB PO DAILY for htn, #30 TAB 5 Refills 04/19/19 Pantoprazole Sodium (PROTONIX) 20 Mg Tablet.dr, 20 MG PO HS for gerd, TAB 04/18/19 Carvedilol (COREG ) 6.25 Mg Tablet, 1 TAB PO BID, #180 TAB 3 Refills 04/13/17 Potassium Chloride (POTASSIUM CHLORIDE ) 10 Meq Capsule.er, 10 MEQ PO UD, TAB.SR 04/13/17 Ezetimibe (ZETIA) 10 Mg Tablet, 1 TAB PO DAILY AM, #30 TAB 5 Refills 04/13/17 Ergocalciferol (Vitamin D2) (VITAMIN D2) 50,000 Unit Capsule, 90498 UNIT PO QSU for supplement , CAP 08/11/16 Escitalopram Oxalate (LEXAPRO) 20 Mg Tablet, 40 MG PO DAILY for ANTI-DEPRESSANT, TAB 0 Refills 08/11/16 Duloxetine Hcl (CYMBALTA) 60 Mg Capsule., 60 MG PO BID for depression, CAP 10/05/13 Discontinued Reported Medications Hydromorphone Hcl (HYDROMORPHONE HCL) 4 Mg Tablet, 4 MG PO Q4HRS PRN for PAIN, #80 TAB 0 Refills 05/20/18 DEIRDRE AVILA MD Aug 25, 2019 11:20
--- NOTE | 2019-08-25 11:23 | PDOC3 ---
Discharge Summary Visit Information Date of Admission: Aug 22, 2019 Date of Discharge: Aug 25, 2019 Final Diagnosis acute Right knee pain rule out hemarthrosis septic knee, on long course of abx, Essential hypertension Diabetes mellitus type 2 Obesity with a BMI of 35 History of renal cancer status post left nephrectomy History of MRSA History of right knee arthroplasty with several revisions poly-exchange and extensor mechanism repair done on 07/25/2019 Brief Hospital Course Allergies Allergies Coded Allergies Type Severity Reaction Last Updated Verified Sulfa (Sulfonamide Antibiotics) Allergy Intermediate Rash, Nausea and Vomiting 07/25/19 Yes cephalexin Allergy Intermediate RASH, HIVES, NAUSEA/VOMITING 07/25/19 Yes gabapentin Allergy Intermediate RASH, ITCHING 07/25/19 Yes hydrocodone Allergy Intermediate Tolerates hydromorphone 07/25/19 Yes metformin Allergy Intermediate 07/25/19 Yes oxymorphone Allergy Intermediate 07/25/19 Yes bupropion Adverse Reaction Intermediate "MAKES HER CRAZY" 07/25/19 Yes oxycodone Adverse Reaction Intermediate Nausea and Vomiting 07/25/19 Yes rosuvastatin Adverse Reaction Intermediate MUSCLE ACHING 07/25/19 Yes Vital Signs Vital Signs Date Time Temp Pulse Resp B/P (MAP) Pulse Ox O2 Delivery O2 Flow Rate FiO2 08/25/19 11:00 97.5 76 18 186/60 (102) 95 Room Air 97.5 08/25/19 06:52 1.5 Lab Results Laboratory Tests Test 08/23/19 20:47 08/24/19 05:14 08/24/19 07:32 08/24/19 10:52 Glucose (Fingerstick) 163 mg/dL (70-99) 168 mg/dL (70-99) 144 mg/dL (70-99) White Blood Count 10.5 x10^3/uL (4.0-11.0) Red Blood Count 3.37 x10^6/uL (3.50-5.40) Hemoglobin 9.5 g/dL (12.0-15.5) Hematocrit 28.8 % (36.0-47.0) Mean Corpuscular Volume 85 fL (79-100) Mean Corpuscular Hemoglobin 28 pg (25-35) Mean Corpuscular Hemoglobin Concent 33 g/dL (31-37) Red Cell Distribution Width 16.1 % (11.5-14.5) Platelet Count 445 x10^3/uL (140-400) Neutrophils (%) (Auto) 89 % (31-73) Lymphocytes (%) (Auto) 8 % (24-48) Monocytes (%) (Auto) 2 % (0-9) Eosinophils (%) (Auto) 1 % (0-3) Basophils (%) (Auto) 1 % (0-3) Neutrophils # (Auto) 9.3 x10^3/uL (1.8-7.7) Lymphocytes # (Auto) 0.8 x10^3/uL (1.0-4.8) Monocytes # (Auto) 0.2 x10^3/uL (0.0-1.1) Eosinophils # (Auto) 0.1 x10^3/uL (0.0-0.7) Basophils # (Auto) 0.1 x10^3/uL (0.0-0.2) Sodium Level 136 mmol/L (136-145) Potassium Level 4.4 mmol/L (3.5-5.1) Chloride Level 100 mmol/L (98-107) Carbon Dioxide Level 30 mmol/L (21-32) Anion Gap 6 (6-14) Blood Urea Nitrogen 20 mg/dL (7-20) Creatinine 0.9 mg/dL (0.6-1.0) Estimated GFR (Cockcroft-Gault) 62.1 BUN/Creatinine Ratio 22 (6-20) Glucose Level 202 mg/dL (70-99) Calcium Level 8.7 mg/dL (8.5-10.1) Total Bilirubin 0.4 mg/dL (0.2-1.0) Aspartate Amino Transf (AST/SGOT) 20 U/L (15-37) Alanine Aminotransferase (ALT/SGPT) 35 U/L (14-59) Alkaline Phosphatase 64 U/L (46-116) Creatine Kinase 64 U/L (26-192) Total Protein 5.9 g/dL (6.4-8.2) Albumin 2.3 g/dL (3.4-5.0) Albumin/Globulin Ratio 0.6 (1.0-1.7) Test 08/24/19 16:34 08/24/19 20:18 08/25/19 06:20 08/25/19 07:11 Glucose (Fingerstick) 181 mg/dL (70-99) 149 mg/dL (70-99) 120 mg/dL (70-99) White Blood Count 14.2 x10^3/uL (4.0-11.0) Red Blood Count 3.01 x10^6/uL (3.50-5.40) Hemoglobin 8.4 g/dL (12.0-15.5) Hematocrit 26.0 % (36.0-47.0) Mean Corpuscular Volume 86 fL (79-100) Mean Corpuscular Hemoglobin 28 pg (25-35) Mean Corpuscular Hemoglobin Concent 33 g/dL (31-37) Red Cell Distribution Width 16.5 % (11.5-14.5) Platelet Count 479 x10^3/uL (140-400) Neutrophils (%) (Auto) 80 % (31-73) Lymphocytes (%) (Auto) 12 % (24-48) Monocytes (%) (Auto) 6 % (0-9) Eosinophils (%) (Auto) 1 % (0-3) Basophils (%) (Auto) 1 % (0-3) Neutrophils # (Auto) 11.4 x10^3/uL (1.8-7.7) Lymphocytes # (Auto) 1.8 x10^3/uL (1.0-4.8) Monocytes # (Auto) 0.9 x10^3/uL (0.0-1.1) Eosinophils # (Auto) 0.1 x10^3/uL (0.0-0.7) Basophils # (Auto) 0.1 x10^3/uL (0.0-0.2) Sodium Level 139 mmol/L (136-145) Potassium Level 4.0 mmol/L (3.5-5.1) Chloride Level 101 mmol/L (98-107) Carbon Dioxide Level 32 mmol/L (21-32) Anion Gap 6 (6-14) Blood Urea Nitrogen 28 mg/dL (7-20) Creatinine 1.0 mg/dL (0.6-1.0) Estimated GFR (Cockcroft-Gault) 54.8 BUN/Creatinine Ratio 28 (6-20) Glucose Level 143 mg/dL (70-99) Calcium Level 8.7 mg/dL (8.5-10.1) Total Bilirubin 0.3 mg/dL (0.2-1.0) Aspartate Amino Transf (AST/SGOT) 16 U/L (15-37) Alanine Aminotransferase (ALT/SGPT) 29 U/L (14-59) Alkaline Phosphatase 57 U/L (46-116) C-Reactive Protein, Quantitative 13.3 mg/L (0-3.3) Total Protein 6.2 g/dL (6.4-8.2) Albumin 2.5 g/dL (3.4-5.0) Albumin/Globulin Ratio 0.7 (1.0-1.7) Laboratory Tests Test 08/24/19 16:34 08/24/19 20:18 08/25/19 06:20 08/25/19 07:11 Glucose (Fingerstick) 181 mg/dL (70-99) 149 mg/dL (70-99) 120 mg/dL (70-99) White Blood Count 14.2 x10^3/uL (4.0-11.0) Red Blood Count 3.01 x10^6/uL (3.50-5.40) Hemoglobin 8.4 g/dL (12.0-15.5) Hematocrit 26.0 % (36.0-47.0) Mean Corpuscular Volume 86 fL (79-100) Mean Corpuscular Hemoglobin 28 pg (25-35) Mean Corpuscular Hemoglobin Concent 33 g/dL (31-37) Red Cell Distribution Width 16.5 % (11.5-14.5) Platelet Count 479 x10^3/uL (140-400) Neutrophils (%) (Auto) 80 % (31-73) Lymphocytes (%) (Auto) 12 % (24-48) Monocytes (%) (Auto) 6 % (0-9) Eosinophils (%) (Auto) 1 % (0-3) Basophils (%) (Auto) 1 % (0-3) Neutrophils # (Auto) 11.4 x10^3/uL (1.8-7.7) Lymphocytes # (Auto) 1.8 x10^3/uL (1.0-4.8) Monocytes # (Auto) 0.9 x10^3/uL (0.0-1.1) Eosinophils # (Auto) 0.1 x10^3/uL (0.0-0.7) Basophils # (Auto) 0.1 x10^3/uL (0.0-0.2) Sodium Level 139 mmol/L (136-145) Potassium Level 4.0 mmol/L (3.5-5.1) Chloride Level 101 mmol/L (98-107) Carbon Dioxide Level 32 mmol/L (21-32) Anion Gap 6 (6-14) Blood Urea Nitrogen 28 mg/dL (7-20) Creatinine 1.0 mg/dL (0.6-1.0) Estimated GFR (Cockcroft-Gault) 54.8 BUN/Creatinine Ratio 28 (6-20) Glucose Level 143 mg/dL (70-99) Calcium Level 8.7 mg/dL (8.5-10.1) Total Bilirubin 0.3 mg/dL (0.2-1.0) Aspartate Amino Transf (AST/SGOT) 16 U/L (15-37) Alanine Aminotransferase (ALT/SGPT) 29 U/L (14-59) Alkaline Phosphatase 57 U/L (46-116) C-Reactive Protein, Quantitative 13.3 mg/L (0-3.3) Total Protein 6.2 g/dL (6.4-8.2) Albumin 2.5 g/dL (3.4-5.0) Albumin/Globulin Ratio 0.7 (1.0-1.7) Brief Hospital Course Ms. Baig is a 69 old female has been admitted with a chief complaint of bleeding from right knee joint. Patient is well-known to our service from recent discharge. Patient has complicated medical history with multiple surgeries of the right knee.She was recently discharged from [facility] when she was admitted persistent drainage from the right knee, s/p I and D Right knee with poly exchange and extensor mechanism repair done on 07/25/2019. Tissue culture from 07/25/2019 grew Corynebacterium species. She subsequently removal of right knee joint implant and plate and screw hardware with debridement and placement of non-articulating antibiotic spacer on August 15, 2019. Last surgery on August 15, 2019 was her ninth surgery on the right knee. She was discharged on IV meropenem and daptomycin to [facility] . She denies any fever, nausea, vomiting, shortness of breath, cough , headache , chest pain ,diarrhea, abdominal pain, rash, myalgia arthralgia or symptoms. Right knee pain is under control s/p surgery here, evacuation of right knee hematoma by Dr. Perez Discharge Information Condition at Discharge: Improved Follow Up: Weeks Disposition/Orders: D/C to Another Facility Scheduled Carvedilol (Coreg ) 6.25 Mg Tablet, 1 TAB PO BID, #180 Ref 3 (Reported) Entered as Reported by: CAM KAT on 04/13/17 1453 Last Action: Continued on 08/22/191910 by Crystal Browning RP Duloxetine Hcl (Cymbalta) 60 Mg Capsule.dr, 60 MG PO BID for depression, (Reported) Entered as Reported by: EMILY BRINK on 10/05/13 1541 Last Action: Converted on 08/22/191912 by Crystal Browning RPH Ergocalciferol (Vitamin D2) (Vitamin D2) 50,000 Unit Capsule, 50,000 UNIT PO QSU for supplement , (Reported) Entered as Reported by: CAM KAT on 08/11/16 1546 Last Action: Continued on 08/22/191910 by Crystal Browning RPH Escitalopram Oxalate (Lexapro) 20 Mg Tablet, 40 MG PO DAILY for ANTI-DEPRESSANT, Ref 0 (Reported) Entered as Reported by: CAM KAT on 08/11/16 1546 Last Action: Converted on 08/22/191912 by Crystal Browning RPH Ezetimibe (Zetia) 10 Mg Tablet, 1 TAB PO DAILY AM, #30 Ref 5 (Reported) Entered as Reported by: MOMO HUBER on 04/13/17 1346 Last Action: Continued on 08/22/191910 by Crystal Browning RPH Pantoprazole Sodium (Protonix) 20 Mg Tablet.dr, 20 MG PO HS for gerd, (Reported) Entered as Reported by: NEVIN BRANCH RN on 04/18/19 1712 Last Action: Converted on 08/22/191910 by Crystal Browning RP Potassium Chloride (Potassium Chloride ) 10 Meq Capsule.er, 10 MEQ PO UD, (Reported) Entered as Reported by: CAM KAT on 04/13/17 1447 Last Action: Continued on 08/22/191910 by Crystal Browning RP Triamterene/Hydrochlorothiazid (Maxzide 75 Mg-50 Mg Tablet) 1 Each Tablet, 1 TAB PO DAILY for htn, #30 Ref 5 (Reported) Entered as Reported by: NEVIN BRANCH RN on 04/19/19 0953 Last Action: Converted on 08/22/191911 by Crystal Browning RPH Scheduled PRN Hydromorphone Hcl (Dilaudid) 8 Mg Tablet, 1 TAB PO PRN Q4HRS PRN for pain MDD 6 Tablet(s) for 14 Days, #80 Ref 0 Prescribed by: LESLIE PEREZ on 08/18/19 1339 Last Action: Converted on 08/22/192022 by WILMER WANG MD Discontinued Medications Hydromorphone Hcl (Hydromorphone Hcl) 4 Mg Tablet, 4 MG PO Q4HRS PRN for PAIN, #80 Ref 0 (Reported) Entered as Reported by: CHARLETTE ARAUZ on 05/20/18 1212 Patient Instructions Patient Instructions skilled time > 30 min Justicifation of Admission Dx: Justifications for Admission: Justification of Admission Dx: Yes DEIRDRE AVILA MD Aug 25, 2019 11:23
--- NOTE | 2019-08-25 11:39 | PDOC ---
PROGRESS NOTES Chief Complaint Chief Complaint Right knee pain rule out hemarthrosis Essential hypertension Diabetes mellitus type 2 Obesity with a BMI of 35 History of renal cancer status post left nephrectomy History of MRSA septic joint, History of right knee arthroplasty with several revisions poly-exchange and extensor mechanism repair done on 07/25/2019 History of Present Illness History of Present Illness ID consult following wth continuing the prior abx, cx, Pain 11/22, cont large dose dilaudid prn, mult allergies noted she says the pain is too high to transfer to skilled, she cant transfer well I recommended revisiting the option for amputation, but she refused Vitals Vitals Vital Signs Date Time Temp Pulse Resp B/P (MAP) Pulse Ox O2 Delivery O2 Flow Rate FiO2 08/25/19 11:00 97.5 76 18 186/60 (102) 95 Room Air 97.5 08/25/19 06:52 1.5 Physical Exam Physical Exam GENERAL: Propped up in bed, alert, alert in NAD HEENT: Oral cavity clear, no thrush NECK: Supple LUNGS: Clear. HEART: S1, S2 regular. ABDOMEN: Soft, bowel sounds present, nontender EXTREMITIES: Right knee dressing intact, did not take it down, NEUROLOGIC: Alert and oriented x 3. Grossly nonfocal RUE- PICC line without signs of complications General: Alert, Cooperative, moderate distress Heart: Regular rate Lungs: Clear Labs LABS Laboratory Tests Test 08/24/19 16:34 08/24/19 20:18 08/25/19 06:20 08/25/19 07:11 Glucose (Fingerstick) 181 mg/dL (70-99) 149 mg/dL (70-99) 120 mg/dL (70-99) White Blood Count 14.2 x10^3/uL (4.0-11.0) Red Blood Count 3.01 x10^6/uL (3.50-5.40) Hemoglobin 8.4 g/dL (12.0-15.5) Hematocrit 26.0 % (36.0-47.0) Mean Corpuscular Volume 86 fL (79-100) Mean Corpuscular Hemoglobin 28 pg (25-35) Mean Corpuscular Hemoglobin Concent 33 g/dL (31-37) Red Cell Distribution Width 16.5 % (11.5-14.5) Platelet Count 479 x10^3/uL (140-400) Neutrophils (%) (Auto) 80 % (31-73) Lymphocytes (%) (Auto) 12 % (24-48) Monocytes (%) (Auto) 6 % (0-9) Eosinophils (%) (Auto) 1 % (0-3) Basophils (%) (Auto) 1 % (0-3) Neutrophils # (Auto) 11.4 x10^3/uL (1.8-7.7) Lymphocytes # (Auto) 1.8 x10^3/uL (1.0-4.8) Monocytes # (Auto) 0.9 x10^3/uL (0.0-1.1) Eosinophils # (Auto) 0.1 x10^3/uL (0.0-0.7) Basophils # (Auto) 0.1 x10^3/uL (0.0-0.2) Sodium Level 139 mmol/L (136-145) Potassium Level 4.0 mmol/L (3.5-5.1) Chloride Level 101 mmol/L (98-107) Carbon Dioxide Level 32 mmol/L (21-32) Anion Gap 6 (6-14) Blood Urea Nitrogen 28 mg/dL (7-20) Creatinine 1.0 mg/dL (0.6-1.0) Estimated GFR (Cockcroft-Gault) 54.8 BUN/Creatinine Ratio 28 (6-20) Glucose Level 143 mg/dL (70-99) Calcium Level 8.7 mg/dL (8.5-10.1) Total Bilirubin 0.3 mg/dL (0.2-1.0) Aspartate Amino Transf (AST/SGOT) 16 U/L (15-37) Alanine Aminotransferase (ALT/SGPT) 29 U/L (14-59) Alkaline Phosphatase 57 U/L (46-116) C-Reactive Protein, Quantitative 13.3 mg/L (0-3.3) Total Protein 6.2 g/dL (6.4-8.2) Albumin 2.5 g/dL (3.4-5.0) Albumin/Globulin Ratio 0.7 (1.0-1.7) Comment Review of Relevant I have reviewed the following items dieter (where applicable) has been applied. Labs Laboratory Tests Test 08/23/19 20:47 08/24/19 05:14 08/24/19 07:32 08/24/19 10:52 Glucose (Fingerstick) 163 mg/dL (70-99) 168 mg/dL (70-99) 144 mg/dL (70-99) White Blood Count 10.5 x10^3/uL (4.0-11.0) Red Blood Count 3.37 x10^6/uL (3.50-5.40) Hemoglobin 9.5 g/dL (12.0-15.5) Hematocrit 28.8 % (36.0-47.0) Mean Corpuscular Volume 85 fL (79-100) Mean Corpuscular Hemoglobin 28 pg (25-35) Mean Corpuscular Hemoglobin Concent 33 g/dL (31-37) Red Cell Distribution Width 16.1 % (11.5-14.5) Platelet Count 445 x10^3/uL (140-400) Neutrophils (%) (Auto) 89 % (31-73) Lymphocytes (%) (Auto) 8 % (24-48) Monocytes (%) (Auto) 2 % (0-9) Eosinophils (%) (Auto) 1 % (0-3) Basophils (%) (Auto) 1 % (0-3) Neutrophils # (Auto) 9.3 x10^3/uL (1.8-7.7) Lymphocytes # (Auto) 0.8 x10^3/uL (1.0-4.8) Monocytes # (Auto) 0.2 x10^3/uL (0.0-1.1) Eosinophils # (Auto) 0.1 x10^3/uL (0.0-0.7) Basophils # (Auto) 0.1 x10^3/uL (0.0-0.2) Sodium Level 136 mmol/L (136-145) Potassium Level 4.4 mmol/L (3.5-5.1) Chloride Level 100 mmol/L (98-107) Carbon Dioxide Level 30 mmol/L (21-32) Anion Gap 6 (6-14) Blood Urea Nitrogen 20 mg/dL (7-20) Creatinine 0.9 mg/dL (0.6-1.0) Estimated GFR (Cockcroft-Gault) 62.1 BUN/Creatinine Ratio 22 (6-20) Glucose Level 202 mg/dL (70-99) Calcium Level 8.7 mg/dL (8.5-10.1) Total Bilirubin 0.4 mg/dL (0.2-1.0) Aspartate Amino Transf (AST/SGOT) 20 U/L (15-37) Alanine Aminotransferase (ALT/SGPT) 35 U/L (14-59) Alkaline Phosphatase 64 U/L (46-116) Creatine Kinase 64 U/L (26-192) Total Protein 5.9 g/dL (6.4-8.2) Albumin 2.3 g/dL (3.4-5.0) Albumin/Globulin Ratio 0.6 (1.0-1.7) Test 08/24/19 16:34 08/24/19 20:18 08/25/19 06:20 08/25/19 07:11 Glucose (Fingerstick) 181 mg/dL (70-99) 149 mg/dL (70-99) 120 mg/dL (70-99) White Blood Count 14.2 x10^3/uL (4.0-11.0) Red Blood Count 3.01 x10^6/uL (3.50-5.40) Hemoglobin 8.4 g/dL (12.0-15.5) Hematocrit 26.0 % (36.0-47.0) Mean Corpuscular Volume 86 fL (79-100) Mean Corpuscular Hemoglobin 28 pg (25-35) Mean Corpuscular Hemoglobin Concent 33 g/dL (31-37) Red Cell Distribution Width 16.5 % (11.5-14.5) Platelet Count 479 x10^3/uL (140-400) Neutrophils (%) (Auto) 80 % (31-73) Lymphocytes (%) (Auto) 12 % (24-48) Monocytes (%) (Auto) 6 % (0-9) Eosinophils (%) (Auto) 1 % (0-3) Basophils (%) (Auto) 1 % (0-3) Neutrophils # (Auto) 11.4 x10^3/uL (1.8-7.7) Lymphocytes # (Auto) 1.8 x10^3/uL (1.0-4.8) Monocytes # (Auto) 0.9 x10^3/uL (0.0-1.1) Eosinophils # (Auto) 0.1 x10^3/uL (0.0-0.7) Basophils # (Auto) 0.1 x10^3/uL (0.0-0.2) Sodium Level 139 mmol/L (136-145) Potassium Level 4.0 mmol/L (3.5-5.1) Chloride Level 101 mmol/L (98-107) Carbon Dioxide Level 32 mmol/L (21-32) Anion Gap 6 (6-14) Blood Urea Nitrogen 28 mg/dL (7-20) Creatinine 1.0 mg/dL (0.6-1.0) Estimated GFR (Cockcroft-Gault) 54.8 BUN/Creatinine Ratio 28 (6-20) Glucose Level 143 mg/dL (70-99) Calcium Level 8.7 mg/dL (8.5-10.1) Total Bilirubin 0.3 mg/dL (0.2-1.0) Aspartate Amino Transf (AST/SGOT) 16 U/L (15-37) Alanine Aminotransferase (ALT/SGPT) 29 U/L (14-59) Alkaline Phosphatase 57 U/L (46-116) C-Reactive Protein, Quantitative 13.3 mg/L (0-3.3) Total Protein 6.2 g/dL (6.4-8.2) Albumin 2.5 g/dL (3.4-5.0) Albumin/Globulin Ratio 0.7 (1.0-1.7) Laboratory Tests Test 08/24/19 16:34 08/24/19 20:18 08/25/19 06:20 08/25/19 07:11 Glucose (Fingerstick) 181 mg/dL (70-99) 149 mg/dL (70-99) 120 mg/dL (70-99) White Blood Count 14.2 x10^3/uL (4.0-11.0) Red Blood Count 3.01 x10^6/uL (3.50-5.40) Hemoglobin 8.4 g/dL (12.0-15.5) Hematocrit 26.0 % (36.0-47.0) Mean Corpuscular Volume 86 fL (79-100) Mean Corpuscular Hemoglobin 28 pg (25-35) Mean Corpuscular Hemoglobin Concent 33 g/dL (31-37) Red Cell Distribution Width 16.5 % (11.5-14.5) Platelet Count 479 x10^3/uL (140-400) Neutrophils (%) (Auto) 80 % (31-73) Lymphocytes (%) (Auto) 12 % (24-48) Monocytes (%) (Auto) 6 % (0-9) Eosinophils (%) (Auto) 1 % (0-3) Basophils (%) (Auto) 1 % (0-3) Neutrophils # (Auto) 11.4 x10^3/uL (1.8-7.7) Lymphocytes # (Auto) 1.8 x10^3/uL (1.0-4.8) Monocytes # (Auto) 0.9 x10^3/uL (0.0-1.1) Eosinophils # (Auto) 0.1 x10^3/uL (0.0-0.7) Basophils # (Auto) 0.1 x10^3/uL (0.0-0.2) Sodium Level 139 mmol/L (136-145) Potassium Level 4.0 mmol/L (3.5-5.1) Chloride Level 101 mmol/L (98-107) Carbon Dioxide Level 32 mmol/L (21-32) Anion Gap 6 (6-14) Blood Urea Nitrogen 28 mg/dL (7-20) Creatinine 1.0 mg/dL (0.6-1.0) Estimated GFR (Cockcroft-Gault) 54.8 BUN/Creatinine Ratio 28 (6-20) Glucose Level 143 mg/dL (70-99) Calcium Level 8.7 mg/dL (8.5-10.1) Total Bilirubin 0.3 mg/dL (0.2-1.0) Aspartate Amino Transf (AST/SGOT) 16 U/L (15-37) Alanine Aminotransferase (ALT/SGPT) 29 U/L (14-59) Alkaline Phosphatase 57 U/L (46-116) C-Reactive Protein, Quantitative 13.3 mg/L (0-3.3) Total Protein 6.2 g/dL (6.4-8.2) Albumin 2.5 g/dL (3.4-5.0) Albumin/Globulin Ratio 0.7 (1.0-1.7) Medications Current Medications Hydromorphone HCl (Dilaudid) 8 mg PRN Q4HRS PRN PO PAIN Last administered on 08/25/19at 11:05; Start 08/22/19 at 19:15 Ondansetron HCl (Zofran) 4 mg PRN Q4HRS PRN IV NAUSEA/VOMITING; Start 08/22/19 at 19:15; Stop 08/22/19 at 20:25; Status DC Zolpidem Tartrate (Ambien) 5 mg PRN QHS PRN PO INSOMNIA Last administered on 08/24/19at 22:25; Start 08/22/19 at 19:15 Acetaminophen (Tylenol) 650 mg PRN Q4HRS PRN PO TEMP OVER 100.4F OR MILD PAIN; Start 08/22/19 at 19:15 Docusate Sodium (Colace) 100 mg PRN BID PRN PO HARD STOOLS; Start 08/22/19 at 19:15 Albuterol Sulfate (Ventolin Neb Soln) 2.5 mg PRN Q4HRS PRN NEB SHORTNESS OF BREATH; Start 08/22/19 at 19:15 Guaifenesin (Robitussin) 200 mg PRN Q4HRS PRN PO COUGH; Start 08/22/19 at 19:15 Lorazepam (Ativan) 0.5 mg PRN Q4HRS PRN PO ANXIETY / AGITATION; Start 08/22/19 at 19:15 Insulin Human Lispro (HumaLOG) 0-7 UNITS TIDWMEALS SQ Last administered on 08/24/19at 17:25; Start 08/22/19 at 19:30 Dextrose (Dextrose 50%-Water Syringe) 12.5 gm PRN Q15MIN PRN IV SEE COMMENTS; Start 08/22/19 at 19:15 Carvedilol (Coreg) 6.25 mg BIDWMEALS PO Last administered on 08/25/19at 07:57; Start 08/22/19 at 20:00 Ergocalciferol (Vitamin D2) 50,000 unit QSU PO ; Start 08/27/19 at 16:00 EZETIMIBE (Zetia) 10 mg DAILY PO Last administered on 08/25/19at 07:56; Start 08/23/19 at 09:00 Potassium Chloride (Klor-Con) 10 meq DAILY PO Last administered on 08/25/19at 07:57; Start 08/23/19 at 09:00 Pantoprazole Sodium (Protonix) 40 mg QHS PO Last administered on 08/24/19at 21:39; Start 08/22/19 at 21:00 Triamterene/HCTZ (Maxzide 37.5/ 25mg) 2 tab DAILY PO Last administered on 08/25/19at 07:56; Start 08/23/19 at 09:00 Insulin Glargine (Lantus Syringe) 10 unit QHS SQ Last administered on 08/24/19at 21:48; Start 08/22/19 at 21:00 Duloxetine HCl (Cymbalta) 60 mg BID PO Last administered on 08/25/19at 07:57; Start 08/22/19 at 21:00 Citalopram Hydrobromide (CeleXA) 20 mg DAILY PO Last administered on 08/25/19at 07:57; Start 08/23/19 at 09:00 Ondansetron HCl (Zofran) 4 mg PRN Q4HRS PRN IV NAUSEA/VOMITING; Start 08/22/19 at 20:30 Zolpidem Tartrate (Ambien) 5 mg PRN QHS PRN PO INSOMNIA; Start 08/22/19 at 20:30; Status UNV Diphenhydramine HCl (Benadryl) 25 mg PRN Q4HRS PRN IVP ITCHING; Start 08/22/19 at 20:30 Docusate Sodium (Colace) 100 mg PRN BID PRN PO HARD STOOLS; Start 08/22/19 at 20:30; Status UNV Albuterol Sulfate (Ventolin Neb Soln) 2.5 mg PRN Q4HRS PRN NEB SHORTNESS OF BREATH; Start 08/22/19 at 20:30; Status UNV Non-Formulary Medication (Hydromorphone Hcl (Dilaudid)) 1 tab PRN Q4HRS PRN PO pain; Start 08/22/19 at 20:30; Status UNV Meropenem 500 mg/ Sodium Chloride 50 ml @ 100 mls/hr Q6HRS IV Last administered on 08/23/19at 17:20; Start 08/23/19 at 00:00; Stop 08/24/19 at 00:19; Status DC Daptomycin 460 mg/ Sodium Chloride 50 ml @ 100 mls/hr Q24H IV Last admini stered on 08/24/19at 21:40; Start 08/22/19 at 21:00 Fentanyl Citrate (Fentanyl 2ml Vial) 25 mcg PRN Q5MIN PRN IV MILD PAIN 1-3; Start 08/23/19 at 14:30; Stop 08/23/19 at 20:01; Status DC Fentanyl Citrate (Fentanyl 2ml Vial) 50 mcg PRN Q5MIN PRN IV MODERATE TO SEVERE PAIN Last administered on 08/23/19at 19:57; Start 08/23/19 at 14:30; Stop 08/23/19 at 20:01; Status DC Ringer's Solution 1,000 ml @ 30 mls/hr Q24H IV ; Start 08/23/19 at 14:19; Stop 08/24/19 at 02:18; Status DC Prochlorperazine Edisylate (Compazine) 5 mg PACU PRN PRN IV NAUSEA, MRX1; Start 08/23/19 at 14:30; Stop 08/23/19 at 20:01; Status DC Propofol (Diprivan) 200 mg STK-MED ONCE IV ; Start 08/23/19 at 14:37; Stop 08/23/19 at 14:38; Status DC Dexamethasone Sodium Phosphate (Decadron) 4 mg STK-MED ONCE .ROUTE ; Start 08/23/19 at 14:37; Stop 08/23/19 at 14:38; Status DC Lidocaine HCl (Lidocaine Pf 2% Vial) 5 ml STK-MED ONCE .ROUTE ; Start 08/23/19 at 14:37; Stop 08/23/19 at 14:38; Status DC Ondansetron HCl (Zofran) 4 mg STK-MED ONCE .ROUTE ; Start 08/23/19 at 14:37; Stop 08/23/19 at 14:38; Status DC Vancomycin HCl (Vancomycin) 1 gm STK-MED ONCE .ROUTE Last administered on 08/23/19at 18:03; Start 08/23/19 at 18:03; Stop 08/23/19 at 18:03; Status DC Vancomycin HCl (Vancomycin) 1 gm STK-MED ONCE .ROUTE Last administered on 08/23/19at 18:08; Start 08/23/19 at 18:08; Stop 08/23/19 at 18:09; Status DC Succinylcholine Chloride (Anectine) 200 mg STK-MED ONCE .ROUTE ; Start 08/23/19 at 18:31; Stop 08/23/19 at 18:31; Status DC Fentanyl Citrate (Fentanyl 2ml Vial) 100 mcg STK-MED ONCE .ROUTE ; Start 08/23/19 at 19:31; Stop 08/23/19 at 19:32; Status DC Sevoflurane (Ultane) 90 ml STK-MED ONCE IH ; Start 08/23/19 at 19:44; Stop 08/23/19 at 19:44; Status DC Ropivacaine (Naropin 0.5%) 20 ml STK-MED ONCE .ROUTE ; Start 08/23/19 at 19:47; Stop 08/23/19 at 19:47; Status DC Hydromorphone HCl (Dilaudid) 2 mg PRN Q1HR PRN IV PAIN Last administered on 08/25/19at 06:22; Start 08/23/19 at 20:00 Meropenem 500 mg/ Sodium Chloride 50 ml @ 100 mls/hr Q6HRS IV Last administered on 08/25/19at 06:11; Start 08/24/19 at 00:00 Lactobacillus Rhamnosus (Culturelle) 1 cap BID PO Last administered on 08/25/19at 07:57; Start 08/24/19 at 21:00 Active Scripts Active Daptomycin 350 Mg Vial 460 Mg IV DAILY 30 Days Merrem (Meropenem) 500 Mg Vial 500 Mg IV Q6HRS 20 Days Dilaudid (Hydromorphone Hcl) 8 Mg Tablet 1 Tab PO PRN Q4HRS PRN MDD 6 Tablet(s) 14 Days Reported Maxzide 75 Mg-50 Mg Tablet (Triamterene/Hydrochlorothiazid) 1 Each Tablet 1 Tab PO DAILY Protonix (Pantoprazole Sodium) 20 Mg Tablet.dr 20 Mg PO HS Coreg (Carvedilol) 6.25 Mg Tablet 1 Tab PO BID Potassium Chloride (Potassium Chloride) 10 Meq Capsule.er 10 Meq PO UD Zetia (Ezetimibe) 10 Mg Tablet 1 Tab PO DAILY AM Vitamin D2 (Ergocalciferol (Vitamin D2)) 50,000 Unit Capsule 50,000 Unit PO QSU Lexapro (Escitalopram Oxalate) 20 Mg Tablet 40 Mg PO DAILY Cymbalta (Duloxetine Hcl) 60 Mg Capsule.dr 60 Mg PO BID Vitals/I & O Vital Sign - Last 24 Hours 08/24/19 08/24/19 08/24/19 08/24/19 13:00 15:35 17:18 19:00 Temp 98.8 98.5 97.8 98.8 98.5 97.8 Pulse 93 88 88 84 Resp 18 18 20 B/P (MAP) 132/100 (111) 117/51 (73) 117/51 125/44 (71) Pulse Ox 98 94 96 O2 Delivery Room Air Room Air Room Air 08/24/19 08/24/19 08/24/19 08/24/19 20:00 21:39 22:09 23:05 Temp 98.6 98.6 Pulse 79 Resp 20 20 20 B/P (MAP) 110/50 (70) Pulse Ox 96 94 92 O2 Delivery Room Air Room Air Room Air Room Air O2 Flow Rate 1.5 08/25/19 08/25/19 08/25/19 08/25/19 03:08 06:22 06:52 07:00 Temp 98.1 98.0 98.1 98.0 Pulse 72 78 Resp 20 5 20 17 B/P (MAP) 120/46 (70) 141/68 (92) Pulse Ox 97 97 97 94 O2 Delivery Room Air Room Air Room Air Room Air O2 Flow Rate 1.5 1.5 08/25/19 08/25/19 08/25/19 07:22 07:57 11:00 Temp 97.5 97.5 Pulse 78 76 Resp 18 B/P (MAP) 141/68 186/60 (102) Pulse Ox 95 O2 Delivery Room Air Room Air Intake and Output 08/24/19 08/24/19 08/25/19 15:00 23:00 07:00 Output Total 400 ml 200 ml Balance -400 ml -200 ml DEIRDRE AVILA MD Aug 25, 2019 11:39
[2019-08-25 15:00] VITALS: BP 139/50
[2019-08-25 19:00] VITALS: BP 134/61
[2019-08-25] MEDS: ZOLPIDEM 5 MG TABLET. PO PRN (21:33)
[2019-08-25] MEDS: PANTOPRAZOLE 40 MG TABLET.DR. PO SCH (21:33)
[2019-08-25] MEDS: DAPTOmycin (GENERIC) IVPB 460 MG in IV NORMAL SALINE 50ML 50 ML IV SCH (21:34)
[2019-08-25] MEDS: INSULIN GLARGINE SYRINGE. SQ SCH (21:45)
[2019-08-25 23:00] VITALS: BP 129/58
[2019-08-26 03:00] VITALS: BP 102/69
[2019-08-26] MEDS: HYDROmorphone 4 MG TABLET PO PRN ×4 (03:42→21:37)
[2019-08-26] MEDS: MEROPENEM 500 MG in IV NORMAL SALINE 50ML 50 ML IV SCH ×3 (05:30→17:26)
--- NOTE | 2019-08-26 05:30 | NUR ---
Unable to draw blood from picc. Flushes without difficulty. Pt. stated this often happens. Laboratory notified to come draw pt.
[2019-08-26 06:55] VITALS: BP 107/60
[2019-08-26 07:01] LABS: BASO # 0.1 x10^3/uL (0.0-0.2); BASO % 1 % (0-3); EOS # 0.8 x10^3/uL (0.0-0.7); EOS % 7 % (0-3); HEMATOCRIT 28.3 % (36.0-47.0); HEMOGLOBIN 9.2 g/dL (12.0-15.5); LYMPH # 2.2 x10^3/uL (1.0-4.8); LYMPH % 20 % (24-48); MEAN CORPUSCULAR HEMOGLOBIN 29 pg (25-35); MEAN CORPUSCULAR HGB CONC 33 g/dL (31-37); MEAN CORPUSCULAR VOLUME 87 fL (79-100); MONO # 0.7 x10^3/uL (0.0-1.1); MONO % 6 % (0-9); NEUT # 7.2 x10^3/uL (1.8-7.7); NEUT % 66 % (31-73); PLATELET COUNT 510 x10^3/uL (140-400); RED BLOOD COUNT 3.23 x10^6/uL (3.50-5.40); RED CELL DISTRIBUTION WIDTH 16.6 % (11.5-14.5)
[2019-08-26] MEDS: INSULIN LISPRO 300 UNITS/3 ML VIAL. SQ SCH ×3 (08:00→17:00)
[2019-08-26] MEDS: LACTOBACILLUS RHAMNOSUS GG 1 CAPSULE. PO SCH ×2 (08:15→21:33)
[2019-08-26] MEDS: CARVEDILOL 6.25 MG TABLET. PO SCH ×2 (08:15→17:27)
[2019-08-26] MEDS: EZETIMIBE 10 MG TABLET. PO SCH (08:16)
[2019-08-26] MEDS: DULoxetine HCL 30 MG CAPSULE.DR PO SCH ×2 (08:16→21:33)
[2019-08-26] MEDS: CITALOPRAM 20 MG TABLET. PO SCH (08:16)
[2019-08-26] MEDS: POTASSIUM CHLORIDE 10 MEQ TABLET.ER. PO SCH (08:16)
[2019-08-26] MEDS: TRIAMTERENE/HCTZ 37.5/25MG TABLET. PO SCH (08:16)
--- NOTE | 2019-08-26 08:29 | PDOC ---
PROGRESS NOTES Subjective Subjective Problems overnight: Pain decreased somewhat over the last couple of days, still painful when she gets up and around. The muscle spasm in her right foot has decreased now to her baseline where he had has done it occasionally since an Achilles surgery many years ago Objective Vital Signs Vital Signs Date Time Temp Pulse Resp B/P (MAP) Pulse Ox O2 Delivery O2 Flow Rate FiO2 08/26/19 08:15 71 107/60 08/26/19 06:55 97.5 18 97 Nasal Cannula 97.5 08/25/19 06:52 1.5 Physical Exam Swelling has decreased significantly in the right lower extremity incision is well approximated except for a pinpoint area midpoint of her incision where she has some serosanguineous drainage. Dressings were all changed today and brace is well fitting. Distal neurovascular status is at baseline and sensation intact to top and bottom of her foot. Muscle spasm into dorsiflexion of her ankle has decreased significantly to baseline at present. Spacer and leg are stable Labs Laboratory Tests Test 08/24/19 10:52 08/24/19 16:34 08/24/19 20:18 08/25/19 06:20 Glucose (Fingerstick) 144 mg/dL (70-99) 181 mg/dL (70-99) 149 mg/dL (70-99) White Blood Count 14.2 x10^3/uL (4.0-11.0) Red Blood Count 3.01 x10^6/uL (3.50-5.40) Hemoglobin 8.4 g/dL (12.0-15.5) Hematocrit 26.0 % (36.0-47.0) Mean Corpuscular Volume 86 fL (79-100) Mean Corpuscular Hemoglobin 28 pg (25-35) Mean Corpuscular Hemoglobin Concent 33 g/dL (31-37) Red Cell Distribution Width 16.5 % (11.5-14.5) Platelet Count 479 x10^3/uL (140-400) Neutrophils (%) (Auto) 80 % (31-73) Lymphocytes (%) (Auto) 12 % (24-48) Monocytes (%) (Auto) 6 % (0-9) Eosinophils (%) (Auto) 1 % (0-3) Basophils (%) (Auto) 1 % (0-3) Neutrophils # (Auto) 11.4 x10^3/uL (1.8-7.7) Lymphocytes # (Auto) 1.8 x10^3/uL (1.0-4.8) Monocytes # (Auto) 0.9 x10^3/uL (0.0-1.1) Eosinophils # (Auto) 0.1 x10^3/uL (0.0-0.7) Basophils # (Auto) 0.1 x10^3/uL (0.0-0.2) Sodium Level 139 mmol/L (136-145) Potassium Level 4.0 mmol/L (3.5-5.1) Chloride Level 101 mmol/L (98-107) Carbon Dioxide Level 32 mmol/L (21-32) Anion Gap 6 (6-14) Blood Urea Nitrogen 28 mg/dL (7-20) Creatinine 1.0 mg/dL (0.6-1.0) Estimated GFR (Cockcroft-Gault) 54.8 BUN/Creatinine Ratio 28 (6-20) Glucose Level 143 mg/dL (70-99) Calcium Level 8.7 mg/dL (8.5-10.1) Total Bilirubin 0.3 mg/dL (0.2-1.0) Aspartate Amino Transf (AST/SGOT) 16 U/L (15-37) Alanine Aminotransferase (ALT/SGPT) 29 U/L (14-59) Alkaline Phosphatase 57 U/L (46-116) C-Reactive Protein, Quantitative 13.3 mg/L (0-3.3) Total Protein 6.2 g/dL (6.4-8.2) Albumin 2.5 g/dL (3.4-5.0) Albumin/Globulin Ratio 0.7 (1.0-1.7) Test 08/25/19 07:11 08/25/19 11:49 08/25/19 16:21 08/25/19 21:34 Glucose (Fingerstick) 120 mg/dL (70-99) 102 mg/dL (70-99) 127 mg/dL (70-99) 128 mg/dL (70-99) Test 08/26/19 06:40 08/26/19 07:19 White Blood Count 11.0 x10^3/uL (4.0-11.0) Red Blood Count 3.23 x10^6/uL (3.50-5.40) Hemoglobin 9.2 g/dL (12.0-15.5) Hematocrit 28.3 % (36.0-47.0) Mean Corpuscular Volume 87 fL (79-100) Mean Corpuscular Hemoglobin 29 pg (25-35) Mean Corpuscular Hemoglobin Concent 33 g/dL (31-37) Red Cell Distribution Width 16.6 % (11.5-14.5) Platelet Count 510 x10^3/uL (140-400) Neutrophils (%) (Auto) 66 % (31-73) Lymphocytes (%) (Auto) 20 % (24-48) Monocytes (%) (Auto) 6 % (0-9) Eosinophils (%) (Auto) 7 % (0-3) Basophils (%) (Auto) 1 % (0-3) Neutrophils # (Auto) 7.2 x10^3/uL (1.8-7.7) Lymphocytes # (Auto) 2.2 x10^3/uL (1.0-4.8) Monocytes # (Auto) 0.7 x10^3/uL (0.0-1.1) Eosinophils # (Auto) 0.8 x10^3/uL (0.0-0.7) Basophils # (Auto) 0.1 x10^3/uL (0.0-0.2) Glucose (Fingerstick) 100 mg/dL (70-99) Laboratory Tests Test 08/25/19 11:49 08/25/19 16:21 08/25/19 21:34 08/26/19 06:40 Glucose (Fingerstick) 102 mg/dL (70-99) 127 mg/dL (70-99) 128 mg/dL (70-99) White Blood Count 11.0 x10^3/uL (4.0-11.0) Red Blood Count 3.23 x10^6/uL (3.50-5.40) Hemoglobin 9.2 g/dL (12.0-15.5) Hematocrit 28.3 % (36.0-47.0) Mean Corpuscular Volume 87 fL (79-100) Mean Corpuscular Hemoglobin 29 pg (25-35) Mean Corpuscular Hemoglobin Concent 33 g/dL (31-37) Red Cell Distribution Width 16.6 % (11.5-14.5) Platelet Count 510 x10^3/uL (140-400) Neutrophils (%) (Auto) 66 % (31-73) Lymphocytes (%) (Auto) 20 % (24-48) Monocytes (%) (Auto) 6 % (0-9) Eosinophils (%) (Auto) 7 % (0-3) Basophils (%) (Auto) 1 % (0-3) Neutrophils # (Auto) 7.2 x10^3/uL (1.8-7.7) Lymphocytes # (Auto) 2.2 x10^3/uL (1.0-4.8) Monocytes # (Auto) 0.7 x10^3/uL (0.0-1.1) Eosinophils # (Auto) 0.8 x10^3/uL (0.0-0.7) Basophils # (Auto) 0.1 x10^3/uL (0.0-0.2) Test 08/26/19 07:19 Glucose (Fingerstick) 100 mg/dL (70-99) Assessment Assessment POD#irrigation debridement right knee revision antibiotic spacer Plan Plan of Care I discussed with Dr. christianson adding Lyrica to her pain regimen as she is very poorly controlled at present she is unable to tolerate gabapentin due to a rash and is currently on Celexa for nerve pain issues chronically Continue to mobilize to chair and bathroom toe-touch weightbearing on right with brace in place Antibiotics continued per infectious disease Rehab placement when stable Justicifation of Admission Dx: Justifications for Admission: Justification of Admission Dx: Yes LESLIE PEREZ MD Aug 26, 2019 08:29
[2019-08-26] MEDS: PREGABALIN 50 MG CAPSULE PO SCH ×3 (09:04→21:33)
[2019-08-26] MEDS: HYDROmorphone 2 MG/ML VIAL IV PRN ×2 (09:43→15:45)
[2019-08-26 11:00] VITALS: BP 147/50
--- NOTE | 2019-08-26 12:13 | PDOC ---
PROGRESS NOTES Chief Complaint Chief Complaint Right knee pain rule out hemarthrosis Essential hypertension Diabetes mellitus type 2 Obesity with a BMI of 35 History of renal cancer status post left nephrectomy History of MRSA septic joint, History of right knee arthroplasty with several revisions poly-exchange and extensor mechanism repair done on 07/25/2019 History of Present Illness History of Present Illness ID consult following wth continuing the prior abx, cx, Pain still high, , cont large dose dilaudid prn, mult allergies noted she says the pain is too high to transfer to skilled, she cant transfer well I recommended revisiting the option for amputation, but she refused Vitals Vitals Vital Signs Date Time Temp Pulse Resp B/P (MAP) Pulse Ox O2 Delivery O2 Flow Rate FiO2 08/26/19 11:00 97.6 67 18 147/50 (82) 94 Room Air 97.6 Physical Exam Physical Exam GENERAL: Propped up in bed, alert, alert in NAD HEENT: Oral cavity clear, no thrush NECK: Supple LUNGS: Clear. HEART: S1, S2 regular. ABDOMEN: Soft, bowel sounds present, nontender EXTREMITIES: Right knee dressing intact, did not take it down, NEUROLOGIC: Alert and oriented x 3. Grossly nonfocal RUE- PICC line without signs of complications General: Alert, Cooperative, moderate distress Heart: Regular rate Lungs: Clear Labs LABS Laboratory Tests Test 08/25/19 16:21 08/25/19 21:34 08/26/19 06:40 08/26/19 07:19 Glucose (Fingerstick) 127 mg/dL (70-99) 128 mg/dL (70-99) 100 mg/dL (70-99) White Blood Count 11.0 x10^3/uL (4.0-11.0) Red Blood Count 3.23 x10^6/uL (3.50-5.40) Hemoglobin 9.2 g/dL (12.0-15.5) Hematocrit 28.3 % (36.0-47.0) Mean Corpuscular Volume 87 fL (79-100) Mean Corpuscular Hemoglobin 29 pg (25-35) Mean Corpuscular Hemoglobin Concent 33 g/dL (31-37) Red Cell Distribution Width 16.6 % (11.5-14.5) Platelet Count 510 x10^3/uL (140-400) Neutrophils (%) (Auto) 66 % (31-73) Lymphocytes (%) (Auto) 20 % (24-48) Monocytes (%) (Auto) 6 % (0-9) Eosinophils (%) (Auto) 7 % (0-3) Basophils (%) (Auto) 1 % (0-3) Neutrophils # (Auto) 7.2 x10^3/uL (1.8-7.7) Lymphocytes # (Auto) 2.2 x10^3/uL (1.0-4.8) Monocytes # (Auto) 0.7 x10^3/uL (0.0-1.1) Eosinophils # (Auto) 0.8 x10^3/uL (0.0-0.7) Basophils # (Auto) 0.1 x10^3/uL (0.0-0.2) Test 08/26/19 11:17 Glucose (Fingerstick) 89 mg/dL (70-99) Comment Review of Relevant I have reviewed the following items dieter (where applicable) has been applied. Labs Laboratory Tests Test 08/24/19 16:34 08/24/19 20:18 08/25/19 06:20 08/25/19 07:11 Glucose (Fingerstick) 181 mg/dL (70-99) 149 mg/dL (70-99) 120 mg/dL (70-99) White Blood Count 14.2 x10^3/uL (4.0-11.0) Red Blood Count 3.01 x10^6/uL (3.50-5.40) Hemoglobin 8.4 g/dL (12.0-15.5) Hematocrit 26.0 % (36.0-47.0) Mean Corpuscular Volume 86 fL (79-100) Mean Corpuscular Hemoglobin 28 pg (25-35) Mean Corpuscular Hemoglobin Concent 33 g/dL (31-37) Red Cell Distribution Width 16.5 % (11.5-14.5) Platelet Count 479 x10^3/uL (140-400) Neutrophils (%) (Auto) 80 % (31-73) Lymphocytes (%) (Auto) 12 % (24-48) Monocytes (%) (Auto) 6 % (0-9) Eosinophils (%) (Auto) 1 % (0-3) Basophils (%) (Auto) 1 % (0-3) Neutrophils # (Auto) 11.4 x10^3/uL (1.8-7.7) Lymphocytes # (Auto) 1.8 x10^3/uL (1.0-4.8) Monocytes # (Auto) 0.9 x10^3/uL (0.0-1.1) Eosinophils # (Auto) 0.1 x10^3/uL (0.0-0.7) Basophils # (Auto) 0.1 x10^3/uL (0.0-0.2) Sodium Level 139 mmol/L (136-145) Potassium Level 4.0 mmol/L (3.5-5.1) Chloride Level 101 mmol/L (98-107) Carbon Dioxide Level 32 mmol/L (21-32) Anion Gap 6 (6-14) Blood Urea Nitrogen 28 mg/dL (7-20) Creatinine 1.0 mg/dL (0.6-1.0) Estimated GFR (Cockcroft-Gault) 54.8 BUN/Creatinine Ratio 28 (6-20) Glucose Level 143 mg/dL (70-99) Calcium Level 8.7 mg/dL (8.5-10.1) Total Bilirubin 0.3 mg/dL (0.2-1.0) Aspartate Amino Transf (AST/SGOT) 16 U/L (15-37) Alanine Aminotransferase (ALT/SGPT) 29 U/L (14-59) Alkaline Phosphatase 57 U/L (46-116) C-Reactive Protein, Quantitative 13.3 mg/L (0-3.3) Total Protein 6.2 g/dL (6.4-8.2) Albumin 2.5 g/dL (3.4-5.0) Albumin/Globulin Ratio 0.7 (1.0-1.7) Test 08/25/19 11:49 08/25/19 16:21 08/25/19 21:34 08/26/19 06:40 Glucose (Fingerstick) 102 mg/dL (70-99) 127 mg/dL (70-99) 128 mg/dL (70-99) White Blood Count 11.0 x10^3/uL (4.0-11.0) Red Blood Count 3.23 x10^6/uL (3.50-5.40) Hemoglobin 9.2 g/dL (12.0-15.5) Hematocrit 28.3 % (36.0-47.0) Mean Corpuscular Volume 87 fL (79-100) Mean Corpuscular Hemoglobin 29 pg (25-35) Mean Corpuscular Hemoglobin Concent 33 g/dL (31-37) Red Cell Distribution Width 16.6 % (11.5-14.5) Platelet Count 510 x10^3/uL (140-400) Neutrophils (%) (Auto) 66 % (31-73) Lymphocytes (%) (Auto) 20 % (24-48) Monocytes (%) (Auto) 6 % (0-9) Eosinophils (%) (Auto) 7 % (0-3) Basophils (%) (Auto) 1 % (0-3) Neutrophils # (Auto) 7.2 x10^3/uL (1.8-7.7) Lymphocytes # (Auto) 2.2 x10^3/uL (1.0-4.8) Monocytes # (Auto) 0.7 x10^3/uL (0.0-1.1) Eosinophils # (Auto) 0.8 x10^3/uL (0.0-0.7) Basophils # (Auto) 0.1 x10^3/uL (0.0-0.2) Test 08/26/19 07:19 08/26/19 11:17 Glucose (Fingerstick) 100 mg/dL (70-99) 89 mg/dL (70-99) Laboratory Tests Test 08/25/19 16:21 08/25/19 21:34 08/26/19 06:40 08/26/19 07:19 Glucose (Fingerstick) 127 mg/dL (70-99) 128 mg/dL (70-99) 100 mg/dL (70-99) White Blood Count 11.0 x10^3/uL (4.0-11.0) Red Blood Count 3.23 x10^6/uL (3.50-5.40) Hemoglobin 9.2 g/dL (12.0-15.5) Hematocrit 28.3 % (36.0-47.0) Mean Corpuscular Volume 87 fL (79-100) Mean Corpuscular Hemoglobin 29 pg (25-35) Mean Corpuscular Hemoglobin Concent 33 g/dL (31-37) Red Cell Distribution Width 16.6 % (11.5-14.5) Platelet Count 510 x10^3/uL (140-400) Neutrophils (%) (Auto) 66 % (31-73) Lymphocytes (%) (Auto) 20 % (24-48) Monocytes (%) (Auto) 6 % (0-9) Eosinophils (%) (Auto) 7 % (0-3) Basophils (%) (Auto) 1 % (0-3) Neutrophils # (Auto) 7.2 x10^3/uL (1.8-7.7) Lymphocytes # (Auto) 2.2 x10^3/uL (1.0-4.8) Monocytes # (Auto) 0.7 x10^3/uL (0.0-1.1) Eosinophils # (Auto) 0.8 x10^3/uL (0.0-0.7) Basophils # (Auto) 0.1 x10^3/uL (0.0-0.2) Test 08/26/19 11:17 Glucose (Fingerstick) 89 mg/dL (70-99) Medications Current Medications Hydromorphone HCl (Dilaudid) 8 mg PRN Q4HRS PRN PO PAIN Last administered on 08/26/19at 08:14; Start 08/22/19 at 19:15 Ondansetron HCl (Zofran) 4 mg PRN Q4HRS PRN IV NAUSEA/VOMITING; Start 08/22/19 at 19:15; Stop 08/22/19 at 20:25; Status DC Zolpidem Tartrate (Ambien) 5 mg PRN QHS PRN PO INSOMNIA Last administered on 08/25/19at 21:33; Start 08/22/19 at 19:15 Acetaminophen (Tylenol) 650 mg PRN Q4HRS PRN PO TEMP OVER 100.4F OR MILD PAIN; Start 08/22/19 at 19:15 Docusate Sodium (Colace) 100 mg PRN BID PRN PO HARD STOOLS; Start 08/22/19 at 19:15 Albuterol Sulfate (Ventolin Neb Soln) 2.5 mg PRN Q4HRS PRN NEB SHORTNESS OF BREATH; Start 08/22/19 at 19:15 Guaifenesin (Robitussin) 200 mg PRN Q4HRS PRN PO COUGH; Start 08/22/19 at 19:15 Lorazepam (Ativan) 0.5 mg PRN Q4HRS PRN PO ANXIETY / AGITATION; Start 08/22/19 at 19:15 Insulin Human Lispro (HumaLOG) 0-7 UNITS TIDWMEALS SQ Last administered on 08/24/19at 17:25; Start 08/22/19 at 19:30 Dextrose (Dextrose 50%-Water Syringe) 12.5 gm PRN Q15MIN PRN IV SEE COMMENTS; Start 08/22/19 at 19:15 Carvedilol (Coreg) 6.25 mg BIDWMEALS PO Last administered on 08/26/19 08:15; Start 08/22/19 at 20:00 Ergocalciferol (Vitamin D2) 50,000 unit QSU PO ; Start 08/27/19 at 16:00 EZETIMIBE (Zetia) 10 mg DAILY PO Last administered on 08/26/19at 08:16; Start 08/23/19 at 09:00 Potassium Chloride (Klor-Con) 10 meq DAILY PO Last administered on 08/26/19 08:16; Start 08/23/19 at 09:00 Pantoprazole Sodium (Protonix) 40 mg QHS PO Last administered on 08/25/19 21:33; Start 08/22/19 at 21:00 Triamterene/HCTZ (Maxzide 37.5/ 25mg) 2 tab DAILY PO Last administered on 08/26/19 08:16; Start 08/23/19 at 09:00 Insulin Glargine (Lantus Syringe) 10 unit QHS SQ Last administered on 08/25/19 21:45; Start 08/22/19 at 21:00 Duloxetine HCl (Cymbalta) 60 mg BID PO Last administered on 08/26/19 08:16; Start 08/22/19 at 21:00 Citalopram Hydrobromide (CeleXA) 20 mg DAILY PO Last administered on 08/26/19 08:16; Start 08/23/19 at 09:00 Ondansetron HCl (Zofran) 4 mg PRN Q4HRS PRN IV NAUSEA/VOMITING; Start 08/22/19 at 20:30 Zolpidem Tartrate (Ambien) 5 mg PRN QHS PRN PO INSOMNIA; Start 08/22/19 at 20:30; Status UNV Diphenhydramine HCl (Benadryl) 25 mg PRN Q4HRS PRN IVP ITCHING; Start 08/22/19 at 20:30 Docusate Sodium (Colace) 100 mg PRN BID PRN PO HARD STOOLS; Start 08/22/19 at 20:30; Status UNV Albuterol Sulfate (Ventolin Neb Soln) 2.5 mg PRN Q4HRS PRN NEB SHORTNESS OF BREATH; Start 08/22/19 at 20:30; Status UNV Non-Formulary Medication (Hydromorphone Hcl (Dilaudid)) 1 tab PRN Q4HRS PRN PO pain; Start 08/22/19 at 20:30; Status UNV Meropenem 500 mg/ Sodium Chloride 50 ml @ 100 mls/hr Q6HRS IV Last administered on 08/23/19at 17:20; Start 08/23/19 at 00:00; Stop 08/24/19 at 00:19; Status DC Daptomycin 460 mg/ Sodium Chloride 50 ml @ 100 mls/hr Q24H IV Last administered on 08/25/19at 21:34; Start 08/22/19 at 21:00 Fentanyl Citrate (Fentanyl 2ml Vial) 25 mcg PRN Q5MIN PRN IV MILD PAIN 1-3; Start 08/23/19 at 14:30; Stop 08/23/19 at 20:01; Status DC Fentanyl Citrate (Fentanyl 2ml Vial) 50 mcg PRN Q5MIN PRN IV MODERATE TO SEVERE PAIN Last administered on 08/23/19at 19:57; Start 08/23/19 at 14:30; Stop 08/23/19 at 20:01; Status DC Ringer's Solution 1,000 ml @ 30 mls/hr Q24H IV ; Start 08/23/19 at 14:19; Stop 08/24/19 at 02:18; Status DC Prochlorperazine Edisylate (Compazine) 5 mg PACU PRN PRN IV NAUSEA, MRX1; Start 08/23/19 at 14:30; Stop 08/23/19 at 20:01; Status DC Propofol (Diprivan) 200 mg STK-MED ONCE IV ; Start 08/23/19 at 14:37; Stop 08/23/19 at 14:38; Status DC Dexamethasone Sodium Phosphate (Decadron) 4 mg STK-MED ONCE .ROUTE ; Start 08/23/19 at 14:37; Stop 08/23/19 at 14:38; Status DC Lidocaine HCl (Lidocaine Pf 2% Vial) 5 ml STK-MED ONCE .ROUTE ; Start 08/23/19 at 14:37; Stop 08/23/19 at 14:38; Status DC Ondansetron HCl (Zofran) 4 mg STK-MED ONCE .ROUTE ; Start 08/23/19 at 14:37; Stop 08/23/19 at 14:38; Status DC Vancomycin HCl (Vancomycin) 1 gm STK-MED ONCE .ROUTE Last administered on 08/23/19at 18:03; Start 08/23/19 at 18:03; Stop 08/23/19 at 18:03; Status DC Vancomycin HCl (Vancomycin) 1 gm STK-MED ONCE .ROUTE Last administered on 08/23/19at 18:08; Start 08/23/19 at 18:08; Stop 08/23/19 at 18:09; Status DC Succinylcholine Chloride (Anectine) 200 mg STK-MED ONCE .ROUTE ; Start 08/23/19 at 18:31; Stop 08/23/19 at 18:31; Status DC Fentanyl Citrate (Fentanyl 2ml Vial) 100 mcg STK-MED ONCE .ROUTE ; Start 08/23/19 at 19:31; Stop 08/23/19 at 19:32; Status DC Sevoflurane (Ultane) 90 ml STK-MED ONCE IH ; Start 08/23/19 at 19:44; Stop 08/23/19 at 19:44; Status DC Ropivacaine (Naropin 0.5%) 20 ml STK-MED ONCE .ROUTE ; Start 08/23/19 at 19:47; Stop 08/23/19 at 19:47; Status DC Hydromorphone HCl (Dilaudid) 2 mg PRN Q1HR PRN IV PAIN Last administered on 08/26/19at 09:43; Start 08/23/19 at 20:00 Meropenem 500 mg/ Sodium Chloride 50 ml @ 100 mls/hr Q6HRS IV Last administered on 08/26/19at 11:25; Start 08/24/19 at 00:00 Lactobacillus Rhamnosus (Culturelle) 1 cap BID PO Last administered on 08/26/19at 08:15; Start 08/24/19 at 21:00 Pregabalin (Lyrica) 50 mg [id number] PO Last administered on 08/26/19at 09:04; Sta rt 08/26/19 at 09:00 Active Scripts Active Daptomycin 350 Mg Vial 460 Mg IV DAILY 30 Days Merrem (Meropenem) 500 Mg Vial 500 Mg IV Q6HRS 20 Days Dilaudid (Hydromorphone Hcl) 8 Mg Tablet 1 Tab PO PRN Q4HRS PRN MDD 6 Tablet(s) 14 Days Reported Maxzide 75 Mg-50 Mg Tablet (Triamterene/Hydrochlorothiazid) 1 Each Tablet 1 Tab PO DAILY Protonix (Pantoprazole Sodium) 20 Mg Tablet.dr 20 Mg PO HS Coreg (Carvedilol) 6.25 Mg Tablet 1 Tab PO BID Potassium Chloride (Potassium Chloride) 10 Meq Capsule.er 10 Meq PO UD Zetia (Ezetimibe) 10 Mg Tablet 1 Tab PO DAILY AM Vitamin D2 (Ergocalciferol (Vitamin D2)) 50,000 Unit Capsule 50,000 Unit PO QSU Lexapro (Escitalopram Oxalate) 20 Mg Tablet 40 Mg PO DAILY Cymbalta (Duloxetine Hcl) 60 Mg Capsule.dr 60 Mg PO BID Vitals/I & O Vital Sign - Last 24 Hours 08/25/19 08/25/19 08/25/19 08/25/19 12:41 13:14 15:00 17:08 Temp 98.2 98.2 Pulse 86 76 Resp 18 B/P (MAP) 139/50 (79) 186/60 Pulse Ox 95 95 95 O2 Delivery Room Air Room Air 08/25/19 08/25/19 08/25/19 08/25/19 19:00 19:15 20:13 20:40 Temp 97.9 97.9 Pulse 80 Resp 18 16 18 B/P (MAP) 134/61 (85) Pulse Ox 94 O2 Delivery Room Air Room Air Room Air 08/25/19 08/26/19 08/26/19 08/26/19 23:00 03:00 06:55 08:00 Temp 98.1 97.9 97.5 98.1 97.9 97.5 Pulse 66 63 71 Resp 18 18 18 B/P (MAP) 129/58 (81) 102/69 (80) 107/60 (76) Pulse Ox 93 94 97 O2 Delivery Nasal Cannula Room Air 08/26/19 08/26/19 08/26/19 08/26/19 08:15 09:43 10:20 11:00 Temp 97.6 97.6 Pulse 71 67 Resp 18 16 18 B/P (MAP) 107/60 147/50 (82) Pulse Ox 94 O2 Delivery Room Air Room Air Room Air Intake and Output 08/25/19 08/25/19 08/26/19 15:00 23:00 07:00 Intake Total 100 ml 460 ml Balance 100 ml 460 ml DEIRDRE AVILA MD Aug 26, 2019 12:13
[2019-08-26 14:16] VITALS: BP 125/53
[2019-08-26 19:00] VITALS: BP 108/53
[2019-08-26] MEDS: INSULIN GLARGINE SYRINGE. SQ SCH (21:00)
[2019-08-26] MEDS: DAPTOmycin (GENERIC) IVPB 460 MG in IV NORMAL SALINE 50ML 50 ML IV SCH (21:00)
[2019-08-26] MEDS: PANTOPRAZOLE 40 MG TABLET.DR. PO SCH (21:33)
[2019-08-26] MEDS: ZOLPIDEM 5 MG TABLET. PO PRN (21:33)
[2019-08-26 23:00] VITALS: BP_SYST 108; BP_SYST 125; BP_DIAS 50; BP_DIAS 53
[2019-08-27] MEDS: MEROPENEM 500 MG in IV NORMAL SALINE 50ML 50 ML IV SCH ×4 (00:39→17:33)
[2019-08-27 03:00] VITALS: BP 108/48
[2019-08-27 06:50] VITALS: BP 120/48
[2019-08-27] MEDS: INSULIN LISPRO 300 UNITS/3 ML VIAL. SQ SCH ×3 (07:23→16:08)
--- NOTE | 2019-08-27 07:39 | PDOC ---
Infectious Disease Note Subjective Subjective Patient underwent surgery 08/22 Right knee is hurting Denies fever, nausea, vomiting, shortness of breath, diarrhea, abdominal pain, rash Otherwise as above Vital Sign Vital Signs Vital Signs Date Time Temp Pulse Resp B/P (MAP) Pulse Ox O2 Delivery O2 Flow Rate FiO2 08/27/19 06:50 97.6 66 18 120/48 (72) 94 Room Air 97.6 Physical Exam PHYSICAL EXAM GENERAL: Propped up in bed, alert, alert in NAD HEENT: Oral cavity clear, no thrush NECK: Supple LUNGS: Clear. HEART: S1, S2 regular. ABDOMEN: Soft, bowel sounds present, nontender EXTREMITIES: Right knee dressing intact, did not take it down, brace NEUROLOGIC: Alert and oriented x 3. Grossly nonfocal RUE- PICC line without signs of complications Labs Lab Laboratory Tests Test 08/26/19 11:17 08/26/19 16:06 08/27/19 07:06 Glucose (Fingerstick) 89 mg/dL (70-99) 97 mg/dL (70-99) 103 mg/dL (70-99) Micro Additional Susceptibility Requested: Corynebacterium species DAPTOMYCIN= S 0.25 Cefotaxime (non-meningitis) R> 2 Ceftriaxone (non-meningitis) I =2 Meropenem S =0.25 Penicillin IV (non-mening) I =1 Tetracycline R> 4 Trimethoprim/Sulfa R> 2/38 Objective Assessment Right knee hematoma and breakage of tibial portion non-articulating antibiotic spacer this admission August 22, 2019 August 22/2020 Status post Irrigation and debridement right knee with hematoma evacuation and revision of antibiotic spacer Awaiting future right knee revision surgery at [facility] orthopedics with Dr. Moulton/Chavo per pt report -has been seen at Multiple surgeries right knee till date August 15, 2019 Status post removal of right knee joint implant and plate and screw hardware with debridement and placement of non-articulating antibiotic spacer -Cultures negative so far History of persistent drainage from the right knee July 2019 07/25/2019 s/p I and D Right knee with poly exchange and extensor mechanism repair done -07/24 intraoperative cultures positive for Corynebacterium species ( S vancomycin, gentamicin,R erythromycin; Dapto TANYA 0.25, Merrem 0.25) - ESR 23 on 08/09 - CRP 108 -Continue to have drainage postoperatively , serosanguineous, now with wound VAC -Concern for mechanical defect H/o right TKA 08/25/2016 - 11/03/2016, exploration I and D and poly exchange. - 04/16/2017, explantation of the right knee. -07/06/2017, Reimplantation and ORIF on the medial condylar fracture. -05/17/2018, patellar reconstruction with allograft repair. -06/10/2018, exploration and debridement of the right knee. -04/18/2019, she had an extensor mechanism reconstruction with allograft tissue H/o renal cancer, status post left nephrectomy; mild renal insufficiency Diabetes Hypertension Obesity Gastroesophageal reflux disease Plan Plan of Care Very complicated case Continue daptomycin, 07/25, susceptible strain - no Gen aches CPK 64 on 08/23 Merrem 08/07, susceptible strain Labs for a.m. ordered Monitor for antimicrobial toxicities Continue probiotics Plans for transfer to [facility] for second opinion last admission was attempted Unfortunately, was not able to evaluate patient for several weeks d/t full case load per DR Moulton team at [facility]. (see Dr. De La Cruz's progress note from 08/10 for further details). Local wound care as directed Maintain PICC line Discussed with nursing staff MARIA INES ZARAGOZA MD Aug 27, 2019 07:39
[2019-08-27] MEDS: LACTOBACILLUS RHAMNOSUS GG 1 CAPSULE. PO SCH ×2 (08:31→21:20)
[2019-08-27] MEDS: CITALOPRAM 20 MG TABLET. PO SCH (08:31)
[2019-08-27] MEDS: TRIAMTERENE/HCTZ 37.5/25MG TABLET. PO SCH (08:31)
[2019-08-27] MEDS: HYDROmorphone 4 MG TABLET PO PRN ×4 (08:31→21:20)
[2019-08-27] MEDS: DULoxetine HCL 30 MG CAPSULE.DR PO SCH ×2 (08:31→21:19)
[2019-08-27] MEDS: CARVEDILOL 6.25 MG TABLET. PO SCH ×2 (08:32→15:55)
[2019-08-27] MEDS: EZETIMIBE 10 MG TABLET. PO SCH (08:32)
[2019-08-27] MEDS: POTASSIUM CHLORIDE 10 MEQ TABLET.ER. PO SCH (08:32)
[2019-08-27] MEDS: PREGABALIN 50 MG CAPSULE PO SCH ×3 (08:32→21:20)
--- NOTE | 2019-08-27 10:53 | PDOC ---
PROGRESS NOTES Chief Complaint Chief Complaint Right knee pain rule out hemarthrosis Essential hypertension Diabetes mellitus type 2 Obesity with a BMI of 35 History of renal cancer status post left nephrectomy History of MRSA septic joint, History of right knee arthroplasty with several revisions poly-exchange and extensor mechanism repair done on 07/25/2019 History of Present Illness History of Present Illness doing better, taking less pain meds stooled yesterday no events ID consult following wth continuing the prior abx, cx, Pain still high, , cont large dose dilaudid prn, mult allergies noted she says the pain is too high to transfer to skilled, she cant transfer well I recommended revisiting the option for amputation, but she refused Vitals Vitals Vital Signs Date Time Temp Pulse Resp B/P (MAP) Pulse Ox O2 Delivery O2 Flow Rate FiO2 08/27/19 08:32 66 120/48 08/27/19 08:00 Room Air 08/27/19 06:50 97.6 18 94 97.6 Physical Exam Physical Exam GENERAL: Propped up in bed, alert, alert in NAD HEENT: Oral cavity clear, no thrush NECK: Supple LUNGS: Clear. HEART: S1, S2 regular. ABDOMEN: Soft, bowel sounds present, nontender EXTREMITIES: Right knee dressing intact, did not take it down, brace NEUROLOGIC: Alert and oriented x 3. Grossly nonfocal RUE- PICC line without signs of complications General: Alert, Cooperative, moderate distress Heart: Regular rate Lungs: Clear Labs LABS Laboratory Tests Test 08/26/19 11:17 08/26/19 16:06 08/27/19 07:06 Glucose (Fingerstick) 89 mg/dL (70-99) 97 mg/dL (70-99) 103 mg/dL (70-99) Comment Review of Relevant I have reviewed the following items dieter (where applicable) has been applied. Labs Laboratory Tests Test 08/25/19 11:49 08/25/19 16:21 08/25/19 21:34 08/26/19 06:40 Glucose (Fingerstick) 102 mg/dL (70-99) 127 mg/dL (70-99) 128 mg/dL (70-99) White Blood Count 11.0 x10^3/uL (4.0-11.0) Red Blood Count 3.23 x10^6/uL (3.50-5.40) Hemoglobin 9.2 g/dL (12.0-15.5) Hematocrit 28.3 % (36.0-47.0) Mean Corpuscular Volume 87 fL (79-100) Mean Corpuscular Hemoglobin 29 pg (25-35) Mean Corpuscular Hemoglobin Concent 33 g/dL (31-37) Red Cell Distribution Width 16.6 % (11.5-14.5) Platelet Count 510 x10^3/uL (140-400) Neutrophils (%) (Auto) 66 % (31-73) Lymphocytes (%) (Auto) 20 % (24-48) Monocytes (%) (Auto) 6 % (0-9) Eosinophils (%) (Auto) 7 % (0-3) Basophils (%) (Auto) 1 % (0-3) Neutrophils # (Auto) 7.2 x10^3/uL (1.8-7.7) Lymphocytes # (Auto) 2.2 x10^3/uL (1.0-4.8) Monocytes # (Auto) 0.7 x10^3/uL (0.0-1.1) Eosinophils # (Auto) 0.8 x10^3/uL (0.0-0.7) Basophils # (Auto) 0.1 x10^3/uL (0.0-0.2) Test 08/26/19 07:19 08/26/19 11:17 08/26/19 16:06 08/27/19 07:06 Glucose (Fingerstick) 100 mg/dL (70-99) 89 mg/dL (70-99) 97 mg/dL (70-99) 103 mg/dL (70-99) Laboratory Tests Test 08/26/19 11:17 08/26/19 16:06 08/27/19 07:06 Glucose (Fingerstick) 89 mg/dL (70-99) 97 mg/dL (70-99) 103 mg/dL (70-99) Medications Current Medications Hydromorphone HCl (Dilaudid) 8 mg PRN Q4HRS PRN PO PAIN Last administered on 08/27/19at 08:31; Start 08/22/19 at 19:15 Ondansetron HCl (Zofran) 4 mg PRN Q4HRS PRN IV NAUSEA/VOMITING; Start 08/22/19 at 19:15; Stop 08/22/19 at 20:25; Status DC Zolpidem Tartrate (Ambien) 5 mg PRN QHS PRN PO INSOMNIA Last administered on 08/26/19at 21:33; Start 08/22/19 at 19:15 Acetaminophen (Tylenol) 650 mg PRN Q4HRS PRN PO TEMP OVER 100.4F OR MILD PAIN; Start 08/22/19 at 19:15 Docusate Sodium (Colace) 100 mg PRN BID PRN PO HARD STOOLS; Start 08/22/19 at 19:15 Albuterol Sulfate (Ventolin Neb Soln) 2.5 mg PRN Q4HRS PRN NEB SHORTNESS OF CESAR ATH; Start 08/22/19 at 19:15 Guaifenesin (Robitussin) 200 mg PRN Q4HRS PRN PO COUGH; Start 08/22/19 at 19:15 Lorazepam (Ativan) 0.5 mg PRN Q4HRS PRN PO ANXIETY / AGITATION; Start 08/22/19 at 19:15 Insulin Human Lispro (HumaLOG) 0-7 UNITS TIDWMEALS SQ Last administered on 08/24/19at 17:25; Start 08/22/19 at 19:30 Dextrose (Dextrose 50%-Water Syringe) 12.5 gm PRN Q15MIN PRN IV SEE COMMENTS; Start 08/22/19 at 19:15 Carvedilol (Coreg) 6.25 mg BIDWMEALS PO Last administered on 08/27/19at 08:32; Start 08/22/19 at 20:00 Ergocalciferol (Vitamin D2) 50,000 unit QSU PO ; Start 08/27/19 at 16:00 EZETIMIBE (Zetia) 10 mg DAILY PO Last administered on 08/27/19at 08:32; Start 08/23/19 at 09:00 Potassium Chloride (Klor-Con) 10 meq DAILY PO Last administered on 08/27/19at 08:32; Start 08/23/19 at 09:00 Pantoprazole Sodium (Protonix) 40 mg QHS PO Last administered on 08/26/19at 21:33; Start 08/22/19 at 21:00 Triamterene/HCTZ (Maxzide 37.5/ 25mg) 2 tab DAILY PO Last administered on 08/27/19at 08:31; Start 08/23/19 at 09:00 Insulin Glargine (Lantus Syringe) 10 unit QHS SQ Last administered on 08/26/19at 21:00; Start 08/22/19 at 21:00 Duloxetine HCl (Cymbalta) 60 mg BID PO Last administered on 08/27/19 08:31; Start 08/22/19 at 21:00 Citalopram Hydrobromide (CeleXA) 20 mg DAILY PO Last administered on 08/27/19 08:31; Start 08/23/19 at 09:00 Ondansetron HCl (Zofran) 4 mg PRN Q4HRS PRN IV NAUSEA/VOMITING; Start 08/22/19 at 20:30 Zolpidem Tartrate (Ambien) 5 mg PRN QHS PRN PO INSOMNIA; Start 08/22/19 at 20:30; Status UNV Diphenhydramine HCl (Benadryl) 25 mg PRN Q4HRS PRN IVP ITCHING; Start 08/22/19 at 20:30 Docusate Sodium (Colace) 100 mg PRN BID PRN PO HARD STOOLS; Start 08/22/19 at 20:30; Status UNV Albuterol Sulfate (Ventolin Neb Soln) 2.5 mg PRN Q4HRS PRN NEB SHORTNESS OF BREATH; Start 08/22/19 at 20:30; Status UNV Non-Formulary Medication (Hydromorphone Hcl (Dilaudid)) 1 tab PRN Q4HRS PRN PO pain; Start 08/22/19 at 20:30; Status UNV Meropenem 500 mg/ Sodium Chloride 50 ml @ 100 mls/hr Q6HRS IV Last administered on 08/23/19at 17:20; Start 08/23/19 at 00:00; Stop 08/24/19 at 00:19; Status DC Daptomycin 460 mg/ Sodium Chloride 50 ml @ 100 mls/hr Q24H IV Last administered on 08/26/19at 21:00; Start 08/22/19 at 21:00 Fentanyl Citrate (Fentanyl 2ml Vial) 25 mcg PRN Q5MIN PRN IV MILD PAIN 1-3; Start 08/23/19 at 14:30; Stop 08/23/19 at 20:01; Status DC Fentanyl Citrate (Fentanyl 2ml Vial) 50 mcg PRN Q5MIN PRN IV MODERATE TO SEVERE PAIN Last administered on 08/23/19at 19:57; Start 08/23/19 at 14:30; Stop 08/23/19 at 20:01; Status DC Ringer's Solution 1,000 ml @ 30 mls/hr Q24H IV ; Start 08/23/19 at 14:19; Stop 08/24/19 at 02:18; Status DC Prochlorperazine Edisylate (Compazine) 5 mg PACU PRN PRN IV NAUSEA, MRX1; Start 08/23/19 at 14:30; Stop 08/23/19 at 20:01; Status DC Propofol (Diprivan) 200 mg STK-MED ONCE IV ; Start 08/23/19 at 14:37; Stop 08/23/19 at 14:38; Status DC Dexamethasone Sodium Phosphate (Decadron) 4 mg STK-MED ONCE .ROUTE ; Start 08/23/19 at 14:37; Stop 08/23/19 at 14:38; Status DC Lidocaine HCl (Lidocaine Pf 2% Vial) 5 ml STK-MED ONCE .ROUTE ; Start 08/23/19 at 14:37; Stop 08/23/19 at 14:38; Status DC Ondansetron HCl (Zofran) 4 mg STK-MED ONCE .ROUTE ; Start 08/23/19 at 14:37; Stop 08/23/19 at 14:38; Status DC Vancomycin HCl (Vancomycin) 1 gm STK-MED ONCE .ROUTE Last administered on 08/23/19at 18:03; Start 08/23/19 at 18:03; Stop 08/23/19 at 18:03; Status DC Vancomycin HCl (Vancomycin) 1 gm STK-MED ONCE .ROUTE Last administered on 08/23/19at 18:08; Start 08/23/19 at 18:08; Stop 08/23/19 at 18:09; Status DC Succinylcholine Chloride (Anectine) 200 mg STK-MED ONCE .ROUTE ; Start 08/23/19 at 18:31; Stop 08/23/19 at 18:31; Status DC Fentanyl Citrate (Fentanyl 2ml Vial) 100 mcg STK-MED ONCE .ROUTE ; Start 08/23/19 at 19:31; Stop 08/23/19 at 19:32; Status DC Sevoflurane (Ultane) 90 ml STK-MED ONCE IH ; Start 08/23/19 at 19:44; Stop 08/23/19 at 19:44; Status DC Ropivacaine (Naropin 0.5%) 20 ml STK-MED ONCE .ROUTE ; Start 08/23/19 at 19:47; Stop 08/23/19 at 19:47; Status DC Hydromorphone HCl (Dilaudid) 2 mg PRN Q1HR PRN IV PAIN Last administered on 08/26/19at 15:45; Start 08/23/19 at 20:00 Meropenem 500 mg/ Sodium Chloride 50 ml @ 100 mls/hr Q6HRS IV Last administered on 08/27/19at 06:14; Start 08/24/19 at 00:00 Lactobacillus Rhamnosus (Culturelle) 1 cap BID PO Last administered on 08/27/19at 08:31; Start 08/24/19 at 21:00 Pregabalin (Lyrica) 50 mg [id number] PO Last administered on 08/27/19at 08:32; Start 08/26/19 at 09:00 Active Scripts Active Daptomycin 350 Mg Vial 460 Mg IV DAILY 30 Days Merrem (Meropenem) 500 Mg Vial 500 Mg IV Q6HRS 20 Days Dilaudid (Hydromorphone Hcl) 8 Mg Tablet 1 Tab PO PRN Q4HRS PRN MDD 6 Tablet(s) 14 Days Reported Maxzide 75 Mg-50 Mg Tablet (Triamterene/Hydrochlorothiazid) 1 Each Tablet 1 Tab PO DAILY Protonix (Pantoprazole Sodium) 20 Mg Tablet. 20 Mg PO HS Coreg (Carvedilol) 6.25 Mg Tablet 1 Tab PO BID Potassium Chloride (Potassium Chloride) 10 Meq Capsule.er 10 Meq PO UD Zetia (Ezetimibe) 10 Mg Tablet 1 Tab PO DAILY AM Vitamin D2 (Ergocalciferol (Vitamin D2)) 50,000 Unit Capsule 50,000 Unit PO QSU Lexapro (Escitalopram Oxalate) 20 Mg Tablet 40 Mg PO DAILY Cymbalta (Duloxetine Hcl) 60 Mg Capsule. 60 Mg PO BID Vitals/I & O Vital Sign - Last 24 Hours 08/26/19 08/26/19 08/26/19 08/26/19 11:00 14:16 15:45 16:35 Temp 97.6 97.5 97.6 97.5 Pulse 67 68 Resp 18 17 16 16 B/P (MAP) 147/50 (82) 125/53 (77) Pulse Ox 94 93 O2 Delivery Room Air Room Air Room Air Room Air 08/26/19 08/26/19 08/26/19 08/26/19 17:27 19:00 20:00 23:00 Temp 98.2 98.1 98.2 98.1 Pulse 68 77 68 Resp 18 18 B/P (MAP) 125/53 108/53 (71) 125/50 (75) Pulse Ox 93 91 O2 Delivery Room Air Room Air Room Air 08/27/19 08/27/19 08/27/19 08/27/19 03:00 06:50 08:00 08:32 Temp 98.4 97.6 98.4 97.6 Pulse 61 66 66 Resp 18 18 B/P (MAP) 108/48 (68) 120/48 (72) 120/48 Pulse Ox 92 94 O2 Delivery Room Air Room Air Room Air Intake and Output 08/26/19 08/26/19 08/27/19 15:00 23:00 07:00 Intake Total 1040 ml 900 ml 240 ml Output Total 500 ml Balance 1040 ml 900 ml -260 ml DEIRDRE AVILA MD Aug 27, 2019 10:53
[2019-08-27 10:57] VITALS: BP 124/58
--- NOTE | 2019-08-27 14:09 | PDOC ---
PROGRESS NOTES Subjective Subjective Problems overnight: Pain control is much better, she indicates that the Dilaudid has been lasting 7 or 8 hours and she has been able to get up to the chair and bathroom much easier, this is consistent with nursing reports Objective Vital Signs Vital Signs Date Time Temp Pulse Resp B/P (MAP) Pulse Ox O2 Delivery O2 Flow Rate FiO2 08/27/19 10:57 98.4 79 17 124/58 (80) 93 Room Air 98.4 08/25/19 06:52 1.5 Physical Exam No drainage is noted on her dressings currently brace is well fitting distal neurovascular status intact Labs Laboratory Tests Test 08/25/19 16:21 08/25/19 21:34 08/26/19 06:40 08/26/19 07:19 Glucose (Fingerstick) 127 mg/dL (70-99) 128 mg/dL (70-99) 100 mg/dL (70-99) White Blood Count 11.0 x10^3/uL (4.0-11.0) Red Blood Count 3.23 x10^6/uL (3.50-5.40) Hemoglobin 9.2 g/dL (12.0-15.5) Hematocrit 28.3 % (36.0-47.0) Mean Corpuscular Volume 87 fL (79-100) Mean Corpuscular Hemoglobin 29 pg (25-35) Mean Corpuscular Hemoglobin Concent 33 g/dL (31-37) Red Cell Distribution Width 16.6 % (11.5-14.5) Platelet Count 510 x10^3/uL (140-400) Neutrophils (%) (Auto) 66 % (31-73) Lymphocytes (%) (Auto) 20 % (24-48) Monocytes (%) (Auto) 6 % (0-9) Eosinophils (%) (Auto) 7 % (0-3) Basophils (%) (Auto) 1 % (0-3) Neutrophils # (Auto) 7.2 x10^3/uL (1.8-7.7) Lymphocytes # (Auto) 2.2 x10^3/uL (1.0-4.8) Monocytes # (Auto) 0.7 x10^3/uL (0.0-1.1) Eosinophils # (Auto) 0.8 x10^3/uL (0.0-0.7) Basophils # (Auto) 0.1 x10^3/uL (0.0-0.2) Test 08/26/19 11:17 08/26/19 16:06 08/27/19 07:06 08/27/19 10:54 Glucose (Fingerstick) 89 mg/dL (70-99) 97 mg/dL (70-99) 103 mg/dL (70-99) 101 mg/dL (70-99) Laboratory Tests Test 08/26/19 16:06 08/27/19 07:06 08/27/19 10:54 Glucose (Fingerstick) 97 mg/dL (70-99) 103 mg/dL (70-99) 101 mg/dL (70-99) Assessment Assessment POD#revision antibiotic spacer and irrigation debridement right knee Plan Plan of Care Overall doing much better, started Cuco yesterday, unclear if that is the reason for her better pain control but would recommend continuing on discharge Looks more stable from an orthopedic standpoint at this point and anticipate discharge to rehabilitation facility Justicifation of Admission Dx: Justifications for Admission: Justification of Admission Dx: N/A LESLIE PEREZ MD Aug 27, 2019 14:09
[2019-08-27 14:43] VITALS: BP 125/61
[2019-08-27] MEDS ORDERED: ERGOCALCIFEROL (VITAMIN D2) 50,000 UNIT CAPSULE. PO SCH (16:00)
[2019-08-27 19:00] VITALS: BP 96/40
[2019-08-27] MEDS: PANTOPRAZOLE 40 MG TABLET.DR. PO SCH (21:19)
[2019-08-27] MEDS: INSULIN GLARGINE SYRINGE. SQ SCH (21:27)
[2019-08-27] MEDS: DAPTOmycin (GENERIC) IVPB 460 MG in IV NORMAL SALINE 50ML 50 ML IV SCH (21:31)
[2019-08-27 23:00] VITALS: BP 123/48
[2019-08-28] MEDS: MEROPENEM 500 MG in IV NORMAL SALINE 50ML 50 ML IV SCH ×3 (00:17→11:44)
[2019-08-28 03:39] VITALS: BP 121/47
[2019-08-28 07:00] VITALS: BP 127/45
[2019-08-28] MEDS: CARVEDILOL 6.25 MG TABLET. PO SCH (08:00)
[2019-08-28] MEDS: TRIAMTERENE/HCTZ 37.5/25MG TABLET. PO SCH (08:00)
[2019-08-28] MEDS: HYDROmorphone 4 MG TABLET PO PRN ×2 (08:00→13:07)
[2019-08-28] MEDS: PREGABALIN 50 MG CAPSULE PO SCH (08:00)
[2019-08-28] MEDS: LACTOBACILLUS RHAMNOSUS GG 1 CAPSULE. PO SCH (08:00)
[2019-08-28] MEDS: DULoxetine HCL 30 MG CAPSULE.DR PO SCH (08:00)
[2019-08-28] MEDS: CITALOPRAM 20 MG TABLET. PO SCH (08:00)
[2019-08-28] MEDS: EZETIMIBE 10 MG TABLET. PO SCH (08:00)
[2019-08-28] MEDS: POTASSIUM CHLORIDE 10 MEQ TABLET.ER. PO SCH (08:00)
[2019-08-28] MEDS: INSULIN LISPRO 300 UNITS/3 ML VIAL. SQ SCH ×2 (08:05→11:40)
--- NOTE | 2019-08-28 08:52 | NUR ---
MATTHEW following. Discussed with RN, plan for pt to [facility] back [facility] today. MATTHEW notified Dr. Busch. Awaiting discharge orders. [facility] to [facility] pt today. Addendum: 08/28/19 at 1230 by LAYLA CASTRO Pt discharging to [facility] at 1300. RN and pt notified. Discharge paperwork faxed to [facility].
--- NOTE | 2019-08-28 09:55 | PDOC ---
PROGRESS NOTES Chief Complaint Chief Complaint impression discharge dx Right knee hemarthrosis POD# 5 revision antibiotic spacer and irrigation debridement right knee Essential hypertension Diabetes mellitus type 2 Obesity with a BMI of 35 History of renal cancer status post left nephrectomy severe protein-caloric malnutrition History of MRSA septic joint, History of right knee arthroplasty with several revisions poly-exchange and extensor mechanism repair done on 07/25/2019 Continue daptomycin, 07/25, susceptible strain - no Gen aches CPK 64 on 08/23 Merrem 08/07, susceptible strain Labs for a.m. ordered Monitor for antimicrobial toxicities Continue probiotics Plans for transfer to [facility] for second opinion last admission was attempted Unfortunately, was not able to evaluate patient for several weeks d/t full case load per DR Moulton team at [facility]. August 15, 2019 Status post removal of right knee joint implant and plate and screw hardware with debridement and placement of non-articulating antibiotic spacer -Cultures negative so far History of persistent drainage from the right knee July 2019 07/25/2019 s/p I and D Right knee with poly exchange and extensor mechanism repair done -07/24 intraoperative cultures positive for Corynebacterium species ( S vancomycin, gentamicin,R erythromycin; Dapto TANYA 0.25, Merrem 0.25) - ESR 23 on 08/09 - CRP 108 -Continue to have drainage postoperatively , serosanguineous, now with wound VAC -Concern for mechanical defect H/o right TKA 08/25/2016 - 11/03/2016, exploration I and D and poly exchange. - 04/16/2017, explantation of the right knee. -07/06/2017, Reimplantation and ORIF on the medial condylar fracture. -05/17/2018, patellar reconstruction with allograft repair. -06/10/2018, exploration and debridement of the right knee. -04/18/2019, she had an extensor mechanism reconstruction with allograft tissue 36 min pt exam, chart review d/c planning , > 50% of time spent with exam, chart review, pt care coordination History of Present Illness History of Present Illness doing better, taking less pain meds ID OK WITH D/C 08/27 stooled yesterday no events ID consult following wth continuing the prior abx, cx, Pain still high, , cont large dose dilaudid prn, mult allergies noted transfer to [facility], she cant transfer well, IF OK WITH ID option for amputation, refused Vitals Vitals Vital Signs Date Time Temp Pulse Resp B/P (MAP) Pulse Ox O2 Delivery O2 Flow Rate FiO2 08/28/19 08:00 72 127/45 08/28/19 07:26 Room Air 08/28/19 07:00 98.5 18 97 98.5 Physical Exam Physical Exam GENERAL: Propped up in bed, alert, alert in NAD HEENT: Oral cavity clear, no thrush NECK: Supple LUNGS: Clear. HEART: S1, S2 regular. ABDOMEN: Soft, bowel sounds present, nontender EXTREMITIES: Right knee dressing intact, did not take it down, brace NEUROLOGIC: Alert and oriented x 3. Grossly nonfocal RUE- PICC line without signs of complications General: Alert, Oriented X3, Cooperative, No acute distress Heart: Regular rate, No murmurs Lungs: Clear Abdomen: Normal bowel sounds, Soft Extremities: No cyanosis, Other (very tender right knee) Labs LABS Right knee 2 views INDICATION: Postop revision antibiotic spacer right knee. COMPARISON: 07/24/2019 right knee x-rays FINDINGS: There has been interval revision of the patient's right total knee arthroplasty with removal of fixation hardware along the medial femoral shaft as well. In their place are intramedullary wires and cement material filling the joint space. There is mild associated soft tissue swelling. No definite joint effusion is seen although detail is obscured on the lateral view by external knee brace. IMPRESSION: Interval revision of right total knee arthroplasty with hardware removal and placement of fixation pins and cement in the right knee joint space. Alignment shows straightening and is otherwise unremarkable. Electronically signed by: Beryl Romero MD (08/24/2019 12:07 PM) [id number] DICTATED and SIGNED BY: BERYL ROMERO MD DATE: 08/24/19 1207 Laboratory Tests Test 08/27/19 10:54 08/27/19 16:02 08/27/19 20:56 08/28/19 07:56 Glucose (Fingerstick) 101 mg/dL (70-99) 119 mg/dL (70-99) 125 mg/dL (70-99) 157 mg/dL (70-99) Comment Review of Relevant I have reviewed the following items dieter (where applicable) has been applied. Labs Laboratory Tests Test 08/26/19 11:17 08/26/19 16:06 08/27/19 07:06 08/27/19 10:54 Glucose (Fingerstick) 89 mg/dL (70-99) 97 mg/dL (70-99) 103 mg/dL (70-99) 101 mg/dL (70-99) Test 08/27/19 16:02 08/27/19 20:56 08/28/19 07:56 Glucose (Fingerstick) 119 mg/dL (70-99) 125 mg/dL (70-99) 157 mg/dL (70-99) Laboratory Tests Test 08/27/19 10:54 08/27/19 16:02 08/27/19 20:56 08/28/19 07:56 Glucose (Fingerstick) 101 mg/dL (70-99) 119 mg/dL (70-99) 125 mg/dL (70-99) 157 mg/dL (70-99) Medications Current Medications Hydromorphone HCl (Dilaudid) 8 mg PRN Q4HRS PRN PO PAIN Last administered on 08/28/19at 08:00; Start 08/22/19 at 19:15 Ondansetron HCl (Zofran) 4 mg PRN Q4HRS PRN IV NAUSEA/VOMITING; Start 08/22/19 at 19:15; Stop 08/22/19 at 20:25; Status DC Zolpidem Tartrate (Ambien) 5 mg PRN QHS PRN PO INSOMNIA Last administered on 08/26/19at 21:33; Start 08/22/19 at 19:15 Acetaminophen (Tylenol) 650 mg PRN Q4HRS PRN PO TEMP OVER 100.4F OR MILD PAIN; Start 08/22/19 at 19:15 Docusate Sodium (Colace) 100 mg PRN BID PRN PO HARD STOOLS; Start 08/22/19 at 19:15 Albuterol Sulfate (Ventolin Neb Soln) 2.5 mg PRN Q4HRS PRN NEB SHORTNESS OF BREATH; Start 08/22/19 at 19:15 Guaifenesin (Robitussin) 200 mg PRN Q4HRS PRN PO COUGH; Start 08/22/19 at 19:15 Lorazepam (Ativan) 0.5 mg PRN Q4HRS PRN PO ANXIETY / AGITATION; Start 08/22/19 at 19:15 Insulin Human Lispro (HumaLOG) 0-7 UNITS TIDWMEALS SQ Last administered on 08/28/19at 08:05; Start 08/22/19 at 19:30 Dextrose (Dextrose 50%-Water Syringe) 12.5 gm PRN Q15MIN PRN IV SEE COMMENTS; Start 08/22/19 at 19:15 Carvedilol (Coreg) 6.25 mg BIDWMEALS PO Last administered on 08/28/19at 08:00; Start 08/22/19 at 20:00 Ergocalciferol (Vitamin D2) 50,000 unit QSU PO Last administered on 08/27/19at 15:53; Start 08/27/19 at 16:00 EZETIMIBE (Zetia) 10 mg DAILY PO Last administered on 08/28/19 08:00; Start 08/23/19 at 09:00 Potassium Chloride (Klor-Con) 10 meq DAILY PO Last administered on 08/28/19at 08:00; Start 08/23/19 at 09:00 Pantoprazole Sodium (Protonix) 40 mg QHS PO Last administered on 08/27/19 21:19; Start 08/22/19 at 21:00 Triamterene/HCTZ (Maxzide 37.5/ 25mg) 2 tab DAILY PO Last administered on 08/28/19at 08:00; Start 08/23/19 at 09:00 Insulin Glargine (Lantus Syringe) 10 unit QHS SQ Last administered on 08/27/19at 21:27; Start 08/22/19 at 21:00 Duloxetine HCl (Cymbalta) 60 mg BID PO Last administered on 08/28/19at 08:00; Start 08/22/19 at 21:00 Citalopram Hydrobromide (CeleXA) 20 mg DAILY PO Last administered on 08/28/19at 08:00; Start 08/23/19 at 09:00 Ondansetron HCl (Zofran) 4 mg PRN Q4HRS PRN IV NAUSEA/VOMITING; Start 08/22/19 at 20:30 Zolpidem Tartrate (Ambien) 5 mg PRN QHS PRN PO INSOMNIA; Start 08/22/19 at 20:30; Status UNV Diphenhydramine HCl (Benadryl) 25 mg PRN Q4HRS PRN IVP ITCHING; Start 08/22/19 at 20:30 Docusate Sodium (Colace) 100 mg PRN BID PRN PO HARD STOOLS; Start 08/22/19 at 20:30; Status UNV Albuterol Sulfate (Ventolin Neb Soln) 2.5 mg PRN Q4HRS PRN NEB SHORTNESS OF BREATH; Start 08/22/19 at 20:30; Status UNV Non-Formulary Medication (Hydromorphone Hcl (Dilaudid)) 1 tab PRN Q4HRS PRN PO pain; Start 08/22/19 at 20:30; Status UNV Meropenem 500 mg/ Sodium Chloride 50 ml @ 100 mls/hr Q6HRS IV Last administered on 08/23/19at 17:20; Start 08/23/19 at 00:00; Stop 08/24/19 at 00:19; Status DC Daptomycin 460 mg/ Sodium Chloride 50 ml @ 100 mls/hr Q24H IV Last administered on 08/27/19at 21:31; Start 08/22/19 at 21:00 Fentanyl Citrate (Fentanyl 2ml Vial) 25 mcg PRN Q5MIN PRN IV MILD PAIN 1-3; Start 08/23/19 at 14:30; Stop 08/23/19 at 20:01; Status DC Fentanyl Citrate (Fentanyl 2ml Vial) 50 mcg PRN Q5MIN PRN IV MODERATE TO SEVERE PAIN Last administered on 08/23/19at 19:57; Start 08/23/19 at 14:30; Stop 08/23/19 at 20:01; Status DC Ringer's Solution 1,000 ml @ 30 mls/hr Q24H IV ; Start 08/23/19 at 14:19; Stop 08/24/19 at 02:18; Status DC Prochlorperazine Edisylate (Compazine) 5 mg PACU PRN PRN IV NAUSEA, MRX1; Start 08/23/19 at 14:30; Stop 08/23/19 at 20:01; Status DC Propofol (Diprivan) 200 mg STK-MED ONCE IV ; Start 08/23/19 at 14:37; Stop 08/23/19 at 14:38; Status DC Dexamethasone Sodium Phosphate (Decadron) 4 mg STK-MED ONCE .ROUTE ; Start 08/23/19 at 14:37; Stop 08/23/19 at 14:38; Status DC Lidocaine HCl (Lidocaine Pf 2% Vial) 5 ml STK-MED ONCE .ROUTE ; Start 08/23/19 at 14:37; Stop 08/23/19 at 14:38; Status DC Ondansetron HCl (Zofran) 4 mg STK-MED ONCE .ROUTE ; Start 08/23/19 at 14:37; Stop 08/23/19 at 14:38; Status DC Vancomycin HCl (Vancomycin) 1 gm STK-MED ONCE .ROUTE Last administered on 08/13 at 18:03; Start 08/23/19 at 18:03; Stop 08/23/19 at 18:03; Status DC Vancomycin HCl (Vancomycin) 1 gm STK-MED ONCE .ROUTE Last administered on 08/23/19at 18:08; Start 08/23/19 at 18:08; Stop 08/23/19 at 18:09; Status DC Succinylcholine Chloride (Anectine) 200 mg STK-MED ONCE .ROUTE ; Start 08/23/19 at 18:31; Stop 08/23/19 at 18:31; Status DC Fentanyl Citrate (Fentanyl 2ml Vial) 100 mcg STK-MED ONCE .ROUTE ; Start 08/23/19 at 19:31; Stop 08/23/19 at 19:32; Status DC Sevoflurane (Ultane) 90 ml STK-MED ONCE IH ; Start 08/23/19 at 19:44; Stop 08/23/19 at 19:44; Status DC Ropivacaine (Naropin 0.5%) 20 ml STK-MED ONCE .ROUTE ; Start 08/23/19 at 19:47; Stop 08/23/19 at 19:47; Status DC Hydromorphone HCl (Dilaudid) 2 mg PRN Q1HR PRN IV PAIN Last administered on 08/26/19at 15:45; Start 08/23/19 at 20:00 Meropenem 500 mg/ Sodium Chloride 50 ml @ 100 mls/hr Q6HRS IV Last administere d on 08/28/19at 06:04; Start 08/24/19 at 00:00 Lactobacillus Rhamnosus (Culturelle) 1 cap BID PO Last administered on 08/28/19at 08:00; Start 08/24/19 at 21:00 Pregabalin (Lyrica) 50 mg [id number] PO Last administered on 08/28/19at 08:00; Start 08/26/19 at 09:00 Active Scripts Active Daptomycin 350 Mg Vial 460 Mg IV DAILY 30 Days Merrem (Meropenem) 500 Mg Vial 500 Mg IV Q6HRS 20 Days Dilaudid (Hydromorphone Hcl) 8 Mg Tablet 1 Tab PO PRN Q4HRS PRN MDD 6 Tablet(s) 14 Days Reported Maxzide 75 Mg-50 Mg Tablet (Triamterene/Hydrochlorothiazid) 1 Each Tablet 1 Tab PO DAILY Protonix (Pantoprazole Sodium) 20 Mg Tablet.dr 20 Mg PO HS Coreg (Carvedilol) 6.25 Mg Tablet 1 Tab PO BID Potassium Chloride (Potassium Chloride) 10 Meq Capsule.er 10 Meq PO UD Zetia (Ezetimibe) 10 Mg Tablet 1 Tab PO DAILY AM Vitamin D2 (Ergocalciferol (Vitamin D2)) 50,000 Unit Capsule 50,000 Unit PO QSU Lexapro (Escitalopram Oxalate) 20 Mg Tablet 40 Mg PO DAILY Cymbalta (Duloxetine Hcl) 60 Mg Capsule.dr 60 Mg PO BID Vitals/I & O Vital Sign - Last 24 Hours 08/27/19 08/27/19 08/27/19 08/27/19 10:57 14:43 15:55 19:00 Temp 98.4 97.8 98.4 98.4 97.8 98.4 Pulse 79 70 70 72 Resp 17 18 20 B/P (MAP) 124/58 (80) 125/61 (82) 125/61 96/40 (58) Pulse Ox 93 95 93 O2 Delivery Room Air Room Air Room Air 08/27/19 08/27/19 08/28/19 08/28/19 20:00 23:00 03:39 07:00 Temp 98.1 98.0 98.5 98.1 98.0 98.5 Pulse 71 74 72 Resp 20 18 18 B/P (MAP) 123/48 (73) 121/47 (71) 127/45 (72) Pulse Ox 94 95 97 O2 Delivery Room Air Room Air Room Air Room Air 08/28/19 08/28/19 07:26 08:00 Pulse 72 B/P (MAP) 127/45 O2 Delivery Room Air Intake and Output 08/27/19 08/27/19 08/28/19 15:00 23:00 07:00 Intake Total 2140 ml Balance 2140 ml PERRY CHASE MD Aug 28, 2019 09:55
[2019-08-28 11:00] VITALS: BP 132/48
--- NOTE | 2019-08-28 11:39 | PDOC ---
Infectious Disease Note Subjective Subjective Patient underwent surgery 08/22 Right knee is hurting with any movement out of bed Denies fever, nausea, vomiting, shortness of breath, diarrhea, abdominal pain, rash Otherwise as above Vital Sign Vital Signs Vital Signs Date Time Temp Pulse Resp B/P (MAP) Pulse Ox O2 Delivery O2 Flow Rate FiO2 08/28/19 11:00 98.4 80 18 132/48 (76) 97 Room Air 98.4 Physical Exam PHYSICAL EXAM GENERAL: Propped up in bed, alert, alert in NAD. Looks more comfortable HEENT: Oral cavity clear, no thrush NECK: Supple LUNGS: Clear. HEART: S1, S2 regular. ABDOMEN: Soft, bowel sounds present, nontender EXTREMITIES: Right knee dressing intact, did not take it down, brace NEUROLOGIC: Alert and oriented x 3. Grossly nonfocal RUE- PICC line without signs of complications Labs Lab Laboratory Tests Test 08/27/19 16:02 08/27/19 20:56 08/28/19 07:56 Glucose (Fingerstick) 119 mg/dL (70-99) 125 mg/dL (70-99) 157 mg/dL (70-99) Micro Additional Susceptibility Requested: Corynebacterium species DAPTOMYCIN= S 0.25 Cefotaxime (non-meningitis) R> 2 Ceftriaxone (non-meningitis) I =2 Meropenem S =0.25 Penicillin IV (non-mening) I =1 Tetracycline R> 4 Trimethoprim/Sulfa R> 2/38 Objective Assessment Right knee hematoma and breakage of tibial portion non-articulating antibiotic spacer this admission August 22, 2019 August 22/2020 Status post Irrigation and debridement right knee with hematoma evacuation and revision of antibiotic spacer Awaiting future right knee revision surgery at [facility] orthopedics with Dr. Moulton/Chavo per pt report -has been seen at Multiple surgeries right knee till date August 15, 2019 Status post removal of right knee joint implant and plate and screw hardware with debridement and placement of non-articulating antibiotic spacer -Cultures negative so far History of persistent drainage from the right knee July 2019 07/25/2019 s/p I and D Right knee with poly exchange and extensor mechanism repair done -07/24 intraoperative cultures positive for Corynebacterium species ( S vancomycin, gentamicin,R erythromycin; Dapto TANYA 0.25, Merrem 0.25) - ESR 23 on 08/09 - CRP 108 -Continue to have drainage postoperatively , serosanguineous, now with wound VAC -Concern for mechanical defect H/o right TKA 08/25/2016 - 11/03/2016, exploration I and D and poly exchange. - 04/16/2017, explantation of the right knee. -07/06/2017, Reimplantation and ORIF on the medial condylar fracture. -05/17/2018, patellar reconstruction with allograft repair. -06/10/2018, exploration and debridement of the right knee. -04/18/2019, she had an extensor mechanism reconstruction with allograft tissue H/o renal cancer, status post left nephrectomy; mild renal insufficiency Diabetes Hypertension Obesity Gastroesophageal reflux disease Plan Plan of Care Very complicated case To d/c today F/u 09/11 at 2:15 Continue daptomycin, 07/25, susceptible strain - no Gen aches CPK 64 on 08/23 Merrem 08/07, susceptible strain Labs for a.m. ordered Monitor for antimicrobial toxicities Continue probiotics Plans for transfer to [facility] for second opinion last admission was attempted Unfortunately, was not able to evaluate patient for several weeks d/t full case load per DR Moulton team at [facility]. (see Dr. De La Cruz's progress note from 08/10 for further details). Local wound care as directed Maintain PICC line Discussed with nursing staff MARIA INES ZARAGOZA MD Aug 28, 2019 11:38
--- NOTE | 2019-08-28 12:05 | PDOC3 ---
Discharge Summary Date of Admission: Aug 22, 2019 Date of Discharge: Aug 28, 2019 Follow-Up: 1-2 days Admitting Diagnosis comment: discharge dx Right knee hemarthrosis POD# 5 revision antibiotic spacer and irrigation debridement right knee Essential hypertension Diabetes mellitus type 2 Obesity with a BMI of 35 History of renal cancer status post left nephrectomy severe protein-caloric malnutrition History of MRSA septic joint, History of right knee arthroplasty with several revisions poly-exchange and extensor mechanism repair done on 07/25/2019 Continue daptomycin, 07/25, susceptible strain - no Gen aches CPK 64 on 08/23 Merrem 08/07, susceptible strain Labs for a.m. ordered Monitor for antimicrobial toxicities Continue probiotics Plans for transfer to [facility] for second opinion last admission was attempted Unfortunately, was not able to evaluate patient for several weeks d/t full case load per DR Moulton team at [facility]. August 15, 2019 Status post removal of right knee joint implant and plate and screw hardware with debridement and placement of non-articulating antibiotic spacer -Cultures negative so far History of persistent drainage from the right knee July 2019 07/25/2019 s/p I and D Right knee with poly exchange and extensor mechanism repair done -07/24 intraoperative cultures positive for Corynebacterium species ( S vancomycin, gentamicin,R erythromycin; Dapto TANYA 0.25, Merrem 0.25) - ESR 23 on 08/09 - CRP 108 -Continue to have drainage postoperatively , serosanguineous, now with wound VAC -Concern for mechanical defect H/o right TKA 08/25/2016 - 11/03/2016, exploration I and D and poly exchange. - 04/16/2017, explantation of the right knee. -07/06/2017, Reimplantation and ORIF on the medial condylar fracture. -05/17/2018, patellar reconstruction with allograft repair. -06/10/2018, exploration and debridement of the right knee. -04/18/2019, she had an extensor mechanism reconstruction with allograft tissue 36 min pt exam, chart review d/c planning , > 50% of time spent with exam, chart review, pt care coordination History of Present Illness History of Present Illness doing better, taking less pain meds ID OK WITH D/C 08/27 stooled yesterday no events ID consult following wth continuing the prior abx, cx, Pain still high, , cont large dose dilaudid prn, mult allergies noted transfer to [facility], she cant transfer well, IF OK WITH ID 08/27 option for amputation, refused Vitals Vitals Vital Signs Date Time Temp Pulse Resp B/P (MAP) Pulse Ox O2 Delivery O2 Flow Rate FiO2 08/28/19 08:00 72 127/45 08/28/19 07:26 Room Air 08/28/19 07:00 98.5 18 97 98.5 Physical Exam Physical Exam GENERAL: Propped up in bed, alert, alert in NAD HEENT: Oral cavity clear, no thrush NECK: Supple LUNGS: Clear. HEART: S1, S2 regular. ABDOMEN: Soft, bowel sounds present, nontender EXTREMITIES: Right knee dressing intact, did not take it down, brace NEUROLOGIC: Alert and oriented x 3. Grossly nonfocal RUE- PICC line without signs of complications General: Alert, Oriented X3, Cooperative, No acute distress Heart: Regular rate, No murmurs Lungs: Clear Abdomen: Normal bowel sounds, Soft Extremities: No cyanosis, Other (very tender right knee) Labs LABS Right knee 2 views INDICATION: Postop revision antibiotic spacer right knee. COMPARISON: 07/24/2019 right knee x-rays FINDINGS: There has been interval revision of the patient's right total knee arthroplasty with removal of fixation hardware along the medial femoral shaft as well. In their place are intramedullary wires and cement material filling the joint space. There is mild associated soft tissue swelling. No definite joint effusion is seen although detail is obscured on the lateral view by external knee brace. IMPRESSION: Interval revision of right total knee arthroplasty with hardware removal and placement of fixation pins and cement in the right knee joint space. Alignment shows straightening and is otherwise unremarkable. Electronically signed by: Beryl Romero MD (08/24/2019 12:07 PM) [id number] DICTATED and SIGNED BY: BERYL ROMERO MD DATE: 08/24/19 1207 Brief Hospital Course Ms. Baig is a 69 old [sex] who presented with [ KNEE ARTHROSIS, ACUTE ] CONDITION AT DISCHARGE: Improved Discharge Medications Current Medications Hydromorphone HCl (Dilaudid) 8 mg PRN Q4HRS PRN PO PAIN Last administered on 08/28/19 08:00; Start 08/22/19 at 19:15 Ondansetron HCl (Zofran) 4 mg PRN Q4HRS PRN IV NAUSEA/VOMITING; Start 08/22/19 at 19:15; Stop 08/22/19 at 20:25; Status DC Zolpidem Tartrate (Ambien) 5 mg PRN QHS PRN PO INSOMNIA Last administered on 08/26/19at 21:33; Start 08/22/19 at 19:15 Acetaminophen (Tylenol) 650 mg PRN Q4HRS PRN PO TEMP OVER 100.4F OR MILD PAIN; Start 08/22/19 at 19:15 Docusate Sodium (Colace) 100 mg PRN BID PRN PO HARD STOOLS; Start 08/22/19 at 19:15 Albuterol Sulfate (Ventolin Neb Soln) 2.5 mg PRN Q4HRS PRN NEB SHORTNESS OF BREATH; Start 08/22/19 at 19:15 Guaifenesin (Robitussin) 200 mg PRN Q4HRS PRN PO COUGH; Start 08/22/19 at 19:15 Lorazepam (Ativan) 0.5 mg PRN Q4HRS PRN PO ANXIETY / AGITATION; Start 08/22/19 at 19:15 Insulin Human Lispro (HumaLOG) 0-7 UNITS TIDWMEALS SQ Last administered on 08/28/19at 08:05; Start 08/22/19 at 19:30 Dextrose (Dextrose 50%-Water Syringe) 12.5 gm PRN Q15MIN PRN IV SEE COMMENTS; Start 08/22/19 at 19:15 Carvedilol (Coreg) 6.25 mg BIDWMEALS PO Last administered on 08/28/19at 08:00; Start 08/22/19 at 20:00 Ergocalciferol (Vitamin D2) 50,000 unit QSU PO Last administered on 08/27/19at 15:53; Start 08/27/19 at 16:00 EZETIMIBE (Zetia) 10 mg DAILY PO Last administered on 08/28/19at 08:00; Start 08/23/19 at 09:00 Potassium Chloride (Klor-Con) 10 meq DAILY PO Last administered on 08/28/19at 08:00; Start 08/23/19 at 09:00 Pantoprazole Sodium (Protonix) 40 mg QHS PO Last administered on 08/27/19at 21:19; Start 08/22/19 at 21:00 Triamterene/HCTZ (Maxzide 37.5/ 25mg) 2 tab DAILY PO Last administered on 08/28/19at 08:00; Start 08/23/19 at 09:00 Insulin Glargine (Lantus Syringe) 10 unit QHS SQ Last administered on 08/27/19at 21:27; Start 08/22/19 at 21:00 Duloxetine HCl (Cymbalta) 60 mg BID PO Last administered on 08/28/19at 08:00; Start 08/22/19 at 21:00 Citalopram Hydrobromide (CeleXA) 20 mg DAILY PO Last administered on 08/28/19at 08:00; Start 08/23/19 at 09:00 Ondansetron HCl (Zofran) 4 mg PRN Q4HRS PRN IV NAUSEA/VOMITING; Start 08/22/19 at 20:30 Zolpidem Tartrate (Ambien) 5 mg PRN QHS PRN PO INSOMNIA; Start 08/22/19 at 20:30; Status UNV Diphenhydramine HCl (Benadryl) 25 mg PRN Q4HRS PRN IVP ITCHING; Start 08/22/19 at 20:30 Docusate Sodium (Colace) 100 mg PRN BID PRN PO HARD STOOLS; Start 08/22/19 at 20:30; Status UNV Albuterol Sulfate (Ventolin Neb Soln) 2.5 mg PRN Q4HRS PRN NEB SHORTNESS OF BREATH; Start 08/22/19 at 20:30; Status UNV Non-Formulary Medication (Hydromorphone Hcl (Dilaudid)) 1 tab PRN Q4HRS PRN PO pain; Start 08/22/19 at 20:30; Status UNV Meropenem 500 mg/ Sodium Chloride 50 ml @ 100 mls/hr Q6HRS IV Last administered on 08/23/19at 17:20; Start 08/23/19 at 00:00; Stop 08/24/19 at 00:19; Status DC Daptomycin 460 mg/ Sodium Chloride 50 ml @ 100 mls/hr Q24H IV Last administered on 08/27/19at 21:31; Start 08/22/19 at 21:00 Fentanyl Citrate (Fentanyl 2ml Vial) 25 mcg PRN Q5MIN PRN IV MILD PAIN 1-3; Start 08/23/19 at 14:30; Stop 08/23/19 at 20:01; Status DC Fentanyl Citrate (Fentanyl 2ml Vial) 50 mcg PRN Q5MIN PRN IV MODERATE TO SEVERE PAIN Last administered on 08/23/19at 19:57; Start 08/23/19 at 14:30; Stop 08/23/19 at 20:01; Status DC Ringer's Solution 1,000 ml @ 30 mls/hr Q24H IV ; Start 08/23/19 at 14:19; Stop 08/24/19 at 02:18; Status DC Prochlorperazine Edisylate (Compazine) 5 mg PACU PRN PRN IV NAUSEA, MRX1; Start 08/23/19 at 14:30; Stop 08/23/19 at 20:01; Status DC Propofol (Diprivan) 200 mg STK-MED ONCE IV ; Start 08/23/19 at 14:37; Stop 08/23/19 at 14:38; Status DC Dexamethasone Sodium Phosphate (Decadron) 4 mg STK-MED ONCE .ROUTE ; Start 08/23/19 at 14:37; Stop 08/23/19 at 14:38; Status DC Lidocaine HCl (Lidocaine Pf 2% Vial) 5 ml STK-MED ONCE .ROUTE ; Start 08/23/19 at 14:37; Stop 08/23/19 at 14:38; Status DC Ondansetron HCl (Zofran) 4 mg STK-MED ONCE .ROUTE ; Start 08/23/19 at 14:37; Stop 08/23/19 at 14:38; Status DC Vancomycin HCl (Vancomycin) 1 gm STK-MED ONCE .ROUTE Last administered on 08/23/19at 18:03; Start 08/23/19 at 18:03; Stop 08/23/19 at 18:03; Status DC Vancomycin HCl (Vancomycin) 1 gm STK-MED ONCE .ROUTE Last administered on 08/23/19at 18:08; Start 08/23/19 at 18:08; Stop 08/23/19 at 18:09; Status DC Succinylcholine Chloride (Anectine) 200 mg STK-MED ONCE .ROUTE ; Start 08/23/19 at 18:31; Stop 08/23/19 at 18:31; Status DC Fentanyl Citrate (Fentanyl 2ml Vial) 100 mcg STK-MED ONCE .ROUTE ; Start 08/23/19 at 19:31; Stop 08/23/19 at 19:32; Status DC Sevoflurane (Ultane) 90 ml STK-MED ONCE IH ; Start 08/23/19 at 19:44; Stop 08/23/19 at 19:44; Status DC Ropivacaine (Naropin 0.5%) 20 ml STK-MED ONCE .ROUTE ; Start 08/23/19 at 19:47; Stop 08/23/19 at 19:47; Status DC Hydromorphone HCl (Dilaudid) 2 mg PRN Q1HR PRN IV PAIN Last administered on 08/26/19at 15:45; Start 08/23/19 at 20:00 Meropenem 500 mg/ Sodium Chloride 50 ml @ 100 mls/hr Q6HRS IV Last administered on 08/28/19at 11:44; Start 08/24/19 at 00:00 Lactobacillus Rhamnosus (Culturelle) 1 cap BID PO Last administered on 08/28/19at 08:00; Start 08/24/19 at 21:00 Pregabalin (Lyrica) 50 mg [id number] PO Last administered on 08/28/19at 08:00; Start 08/26/19 at 09:00 Active Scripts Active Daptomycin 350 Mg Vial 460 Mg IV DAILY 30 Days Merrem (Meropenem) 500 Mg Vial 500 Mg IV Q6HRS 20 Days Dilaudid (Hydromorphone Hcl) 8 Mg Tablet 1 Tab PO PRN Q4HRS PRN MDD 6 Tablet(s) 14 Days Reported Maxzide 75 Mg-50 Mg Tablet (Triamterene/Hydrochlorothiazid) 1 Each Tablet 1 Tab PO DAILY Protonix (Pantoprazole Sodium) 20 Mg Tablet.dr 20 Mg PO HS Coreg (Carvedilol) 6.25 Mg Tablet 1 Tab PO BID Potassium Chloride (Potassium Chloride) 10 Meq Capsule.er 10 Meq PO UD Zetia (Ezetimibe) 10 Mg Tablet 1 Tab PO DAILY AM Vitamin D2 (Ergocalciferol (Vitamin D2)) 50,000 Unit Capsule 50,000 Unit PO QSU Lexapro (Escitalopram Oxalate) 20 Mg Tablet 40 Mg PO DAILY Cymbalta (Duloxetine Hcl) 60 Mg Capsule.dr 60 Mg PO BID Vital Signs Vital Signs Date Time Temp Pulse Resp B/P (MAP) Pulse Ox O2 Delivery O2 Flow Rate FiO2 08/28/19 11:00 98.4 80 18 132/48 (76) 97 Room Air 98.4 Labs Laboratory Tests Test 08/26/19 16:06 08/27/19 07:06 08/27/19 10:54 08/27/19 16:02 Glucose (Fingerstick) 97 mg/dL (70-99) 103 mg/dL (70-99) 101 mg/dL (70-99) 119 mg/dL (70-99) Test 08/27/19 20:56 08/28/19 07:56 08/28/19 11:38 Glucose (Fingerstick) 125 mg/dL (70-99) 157 mg/dL (70-99) 114 mg/dL (70-99) Laboratory Tests Test 08/27/19 16:02 08/27/19 20:56 08/28/19 07:56 08/28/19 11:38 Glucose (Fingerstick) 119 mg/dL (70-99) 125 mg/dL (70-99) 157 mg/dL (70-99) 114 mg/dL (70-99) Allergies Allergies Coded Allergies Type Severity Reaction Last Updated Verified Sulfa (Sulfonamide Antibiotics) Allergy Intermediate Rash, Nausea and Vomiting 07/25/19 Yes cephalexin Allergy Intermediate RASH, HIVES, NAUSEA/VOMITING 07/25/19 Yes gabapentin Allergy Intermediate RASH, ITCHING 07/25/19 Yes hydrocodone Allergy Intermediate Tolerates hydromorphone 07/25/19 Yes metformin Allergy Intermediate 07/25/19 Yes oxymorphone Allergy Intermediate 07/25/19 Yes bupropion Adverse Reaction Intermediate "MAKES HER CRAZY" 07/25/19 Yes oxycodone Adverse Reaction Intermediate Nausea and Vomiting 07/25/19 Yes rosuvastatin Adverse Reaction Intermediate MUSCLE ACHING 07/25/19 Yes Disposition/Orders: Other (D/C TO SNF) Justicifation of Admission Dx: Justifications for Admission: Justification of Admission Dx: N/A PERRY CHASE W MD Aug 28, 2019 12:05
--- NOTE | 2019-08-28 12:09 | SNU/HH DC ---
DISCHARGE ORDERS DISCHARGE INFORMATION: DISCHARGE DATE: Aug 28, 2019 CONDITION ON DISCHARGE: Stable CODE STATUS: Code Status: Full CUSTODIAL: SNF STAY <30 DAYS: Yes HOSPICE: HOSPICE: No HOSPICE EVAL & TREAT: No LTAC: ADMIT TO LTAC: No POST DISCHARGE ORDERS: ACTIVITY ORDERS: Other, see below WEIGHT BEARING STATUS: Touch down weight bearing BATHING ORDERS: Shower-keep dressing dry, No Tub Bath until see DIET AFTER DISCHARGE: Cardiac WOUND/INCISION CARE: Ice to area for comfort, Change dressing, Reinforce dressing PRN CHECKS AFTER DISCHARGE: CHECKS AFTER DISCHARGE: Check blood press - daily, Check your Temp as needed FOLLOW-UP: PHYSICIAN FOLLOW-UP: ortho, ID, soonn TREATMENT/EQUIPMENT ORDERS: ADAPTIVE EQUIPMENT NEEDED: Front wheeled walker, Wheelchair Physical Therapy For: Evalulation/Treatment Occupational Therapy For: Evaluation/Treatment DISCHARGE MEDICATIONS: Home Meds Active Scripts Daptomycin (Daptomycin) 350 Mg Vial, 460 MG IV DAILY for knee infection for 30 Days, #40 EACH Prov:DEIRDRE AVILA MD 08/25/19 Meropenem (MERREM) 500 Mg Vial, 500 MG IV Q6HRS for knee infection for 20 Days, #80 EACH Prov:DEIRDRE AVILA MD 08/25/19 Hydromorphone Hcl (DILAUDID) 8 Mg Tablet, 1 TAB PO PRN Q4HRS PRN for pain MDD 6 Tablet(s) for 14 Days, #80 TAB 0 Refills Prov:LESLIE PEREZ MD 08/18/19 Reported Medications Triamterene/Hydrochlorothiazid (MAXZIDE 75 MG-50 MG TABLET) 1 Each Tablet, 1 TAB PO DAILY for htn, #30 TAB 5 Refills 04/19/19 Pantoprazole Sodium (PROTONIX) 20 Mg Tablet.dr, 20 MG PO HS for gerd, TAB 04/18/19 Carvedilol (COREG ) 6.25 Mg Tablet, 1 TAB PO BID, #180 TAB 3 Refills 04/13/17 Potassium Chloride (POTASSIUM CHLORIDE ) 10 Meq Capsule.er, 10 MEQ PO UD, TAB.SR 04/13/17 Ezetimibe (ZETIA) 10 Mg Tablet, 1 TAB PO DAILY AM, #30 TAB 5 Refills 04/13/17 Ergocalciferol (Vitamin D2) (VITAMIN D2) 50,000 Unit Capsule, 79220 UNIT PO QSU for supplement , CAP 08/11/16 Escitalopram Oxalate (LEXAPRO) 20 Mg Tablet, 40 MG PO DAILY for ANTI-DEPRESSANT, TAB 0 Refills 08/11/16 Duloxetine Hcl (CYMBALTA) 60 Mg Capsule.dr, 60 MG PO BID for depression, CAP 10/05/13 PERRY CHASE MD Aug 28, 2019 12:08
--- NOTE | 2019-08-28 13:14 | NUR ---
Discharge Note: GREYSON VELEZ Discharge instructions and discharge home medications reviewed with Other facility and a copy given. All questions have been answered and understanding verbalized. 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 Notified Angela at [facility] that patient has follow up appointment with Dr. Amos on 09/12/19 at 2:15pm. Discontinued lines and drains: DL right upper arm PICC line left in place for prison antibiotics. Patient discharged to [facility] with director of transportation, wheelchair used for mobility to discharge vehicle.
== END 2019-08-28 13:18 | DRG 488 ==
LOC: 4 NORTH 17:11
PROVIDERS: ADMIT Internal Medicine; ATTEND Internal Medicine
PROC: 0SCC0ZZ Extirpation of Matter from Right Knee Joint, Open Approach (ICD-10-PCS; 2019-08-23)
PROC: 0SW Lower Joints, Revision (ICD-10-PCS; principal; 2019-08-23 16:00)
DX: T84.092A Other mechanical complication of internal right knee prosthesis, initial encounter (principal); E43 Unspecified severe protein-calorie malnutrition; M25.061 Hemarthrosis, right knee; Z79.899 Other long term (current) drug therapy; Z20.828 Contact with and (suspected) exposure to other viral communicable diseases; E11.9 Type 2 diabetes mellitus without complications; E66.9 Obesity, unspecified; I10 Essential (primary) hypertension; K21.9 Gastro-esophageal reflux disease without esophagitis; M17.10 Unilateral primary osteoarthritis, unspecified knee; S80.01XA Contusion of right knee, initial encounter; Y83.1 Surgical operation with implant of artificial internal device as the cause of abnormal reaction of the patient, or of later complication, without mention of misadventure at the time of the procedure; Z68.35 Body mass index [BMI] 35.0-35.9, adult; Z79.4 Long term (current) use of insulin; Z82.49 Family history of ischemic heart disease and other diseases of the circulatory system; Z85.528 Personal history of other malignant neoplasm of kidney; Z86.14 Personal history of Methicillin resistant Staphylococcus aureus infection; Z90.710 Acquired absence of both cervix and uterus; Z96.651 Presence of right artificial knee joint; F32.9 Major depressive disorder, single episode, unspecified; F41.9 Anxiety disorder, unspecified; Z68.38 Body mass index [BMI] 38.0-38.9, adult; Z88.2 Allergy status to sulfonamides; Z88.8 Allergy status to other drugs, medicaments and biological substances
CPT/HCPCS: 36415; 73560; 80048; 80053; 82550; 82962; 85007; 85025; 85610; 86140; 94760; A7015; C1713; J0330; J0878; J1100; J1170; J1815; J2185; J2405; J2704; J2795; J3010; J3370; J3490; J7030; U0003; 97110-GP; 97530-GP; 97535-GO; A4461; G0378

== ENCOUNTER 2019-10-22 18:03 | Inpatient (IN) | payer MEDICARE ==
[~2019-10-22] VITALS: Ht 165.1 cm; Wt 109.4 kg
[~2019-10-22 18:03] MED LIST changes: +DAPT350V IV; +MERO500V22 IV
[2019-10-22] MEDS ORDERED: HYDROmorphone 2 MG/ML VIAL IV ONE (18:45)
[2019-10-22] MEDS ORDERED: ACETAMINOPHEN 325 MG TABLET. PO ONE (18:45)
[2019-10-22] MEDS ORDERED: IV NORMAL SALINE 1000ML BAG 1,000 ML IV ONE (18:45)
[2019-10-22 18:56] LABS: BASO # 0.1 x10^3/uL (0.0-0.2); BASO % 0 % (0-3); EOS # 0.1 x10^3/uL (0.0-0.7); EOS % 0 % (0-3); HEMATOCRIT 37.2 % (36.0-47.0); HEMOGLOBIN 12.1 g/dL (12.0-15.5); LYMPH # 0.3 x10^3/uL (1.0-4.8); LYMPH % 2 % (24-48); MEAN CORPUSCULAR HEMOGLOBIN 26 pg (25-35); MEAN CORPUSCULAR HGB CONC 33 g/dL (31-37); MEAN CORPUSCULAR VOLUME 80 fL (79-100); MONO # 0.8 x10^3/uL (0.0-1.1); MONO % 4 % (0-9); NEUT # 16.2 x10^3/uL (1.8-7.7); NEUT % 93 % (31-73); PLATELET COUNT 407 x10^3/uL (140-400); RED BLOOD COUNT 4.67 x10^6/uL (3.50-5.40); RED CELL DISTRIBUTION WIDTH 15.3 % (11.5-14.5); WHITE BLOOD COUNT 17.4 x10^3/uL (4.0-11.0)
--- NOTE | 2019-10-22 18:58 | PHYS DOC ---
Past Medical History Past Medical History: Anxiety, Cancer, Depression, DVT, GERD, High Cholesterol, Hypertension, Other Additional Past Medical Histor: back pain/DVT R LEG,KIDNEY CA,CHRONIC PAIN,NERV E DAMAGE LEGS Past Surgical History: Appendectomy, Cervical Fusion, Hysterectomy, Knee Replacement, Tonsillectomy, Other Additional Past Surgical Histo: back/cataract,RIGHT KNEE SX,HERNIA,L KIDNEY 1/2 REMOVED Smoking Status: Former Smoker Alcohol Use: None Drug Use: None General Adult EDM: Chief Complaint: KNEE SWELLING HPI: HPI: Patient is a 69 year old female who presents with complaints of increasing pain in the right knee. The patient is a pleasant 69-year-old female who unfortunately has had some troubles with her right knee replacement. She has had an explant of the hardware. She tells me that it was a Corynabacteria originally. Patient reports that her last set of antibiotics was back in August. Patient states that yesterday she began to notice increasing pain, swelling and increased drainage from the knee. She is having difficulty walking and is here with concern for that. In addition today she was noted to have a fever upon arrival. She denied chest pain and reports some mild shortness of breath especially when she gets anxious. She denied PND, orthopnea, nausea vomiting, diarrhea, melena hematochezia, change in urination. She denied any change in smell or taste, cough or congestion. She rates the pain a 10 out of 10, sharp and unrelenting, does not radiate. Review of Systems: Review of Systems: Constitutional: Denies fever or chills at home, fever noted here in the ER. [] Eyes: Denies change in visual acuity. [] HENT: Denies nasal congestion or sore throat. [] Respiratory: Denies cough [] Cardiovascular: Denies chest pain or edema. [] GI: Denies abdominal pain, nausea, vomiting, bloody stools or diarrhea. [] : Denies dysuria. [] Musculoskeletal: See HPI. [] Integument: Denies rash. [] Neurologic: Denies headache, focal weakness or sensory changes. [] Endocrine: Denies polyuria or polydipsia. [] Lymphatic: Denies swollen glands. [] Psychiatric: Denies depression or anxiety. [] Heart Score: Risk Factors: Risk Factors: DM, Current or recent (<one month) smoker, HTN, HLP, family history of CAD, obesity. Risk Scores: Score 0 - 3: 2.5% MACE over next 6 weeks - Discharge Home Score 4 - 6: 20.3% MACE over next 6 weeks - Admit for Clinical Observation Score 7 - 10: 72.7% MACE over next 6 weeks - Early Invasive Strategies Allergies: Allergies: Allergies Coded Allergies Type Severity Reaction Last Updated Verified Sulfa (Sulfonamide Antibiotics) Allergy Intermediate Rash, Nausea and Vomiting 07/25/19 Yes cephalexin Allergy Intermediate RASH, HIVES, NAUSEA/VOMITING 07/25/19 Yes gabapentin Allergy Intermediate RASH, ITCHING 07/25/19 Yes hydrocodone Allergy Intermediate Tolerates hydromorphone 07/25/19 Yes metformin Allergy Intermediate 07/25/19 Yes oxymorphone Allergy Intermediate 07/25/19 Yes bupropion Adverse Reaction Intermediate "MAKES HER CRAZY" 07/25/19 Yes oxycodone Adverse Reaction Intermediate Nausea and Vomiting 07/25/19 Yes rosuvastatin Adverse Reaction Intermediate MUSCLE ACHING 07/25/19 Yes Physical Exam: PE: Constitutional: Well developed, well nourished, no acute distress, non-toxic appearance. [] HENT: Normocephalic, atraumatic, bilateral external ears normal, oropharynx moist, no oral exudates, nose normal. [] Eyes: PERRLA, EOMI, conjunctiva normal, no discharge. [] Neck: Normal range of motion, no tenderness, supple, no stridor. [] Cardiovascular: Regular rhythm, tachycardic, grade 2/6 systolic murmur, no S3 or S4, pulses nonpalpable distally. However cap refill is adequate. [] Lungs & Thorax: Bilateral breath sounds clear to auscultation [] Abdomen: Bowel sounds normal, soft, no tenderness, no masses, no pulsatile masses. [] Skin: Warm, dry, no erythema, no rash. [] Back: No tenderness, no CVA tenderness. [] Extremities: No tenderness, no cyanosis, no clubbing, ROM intact, asymmetric edema with the right greater than the left, right knee with wound VAC in place, the surgical wound appears well-healing, there is a lot of soft tissue swelling I was unable to assess for effusion secondary to patient's pain. [] Neurologic: Alert and oriented X 3, normal motor function, normal sensory function, no focal deficits noted. [] Psychologic: Affect normal, judgement normal, mood normal. [] Current Patient Data: Vital Signs: Vital Signs Date Time Temp Pulse Resp B/P (MAP) Pulse Ox O2 Delivery O2 Flow Rate FiO2 10/22/19 18:05 100.3 116 158/66 (96) 92 Room Air 100.3 EKG: EKG: Heart rate of 108, sinus tachycardia, leftward axis, voltage criteria for right ventricular hypertrophy, abnormal ECG [] Radiology/Procedures: Radiology/Procedures: [] Course & Med Decision Making: Course & Med Decision Making Pertinent Labs and Imaging studies reviewed. (See chart for details) 1854-I discussed the case with Dr. Ramirez, who suggested at this time that we consult ID, culture the drainage as well as blood and admit to hospitalist. He did not want antibiotic started at this time until ID is seen the patient. He suggested he may do an arthrocentesis tomorrow. 1951-I discussed the case with who is on for infectious disease. After I discussed the case with him he was concerned enough about her developing sepsis even though her lactic is 2, to go ahead and start her on Zosyn and daptomycin. Call was made out to the hospitalist. I discussed all results and plan of treatment with the patient. [] Ej Disclaimer: Ej Disclaimer: This electronic medical record was generated, in whole or in part, using a voice recognition dictation system. Critical Care Note Total Time (mins): 40 Comments 40 minutes of critical care time was billed outside of any procedures or teaching time. Critical care was charged secondary to impending collapse of the cardiovascular system, probable sepsis and severe hypokalemia with impending collapse of the metabolic system. Departure Departure Impression: Primary Impression: Sepsis Qualified Codes: A41.9 - Sepsis, unspecified organism Additional Impressions: Hypokalemia Right knee pain Qualified Codes: M25.561 - Pain in right knee Fever Qualified Codes: R50.9 - Fever, unspecified Disposition: ADMITTED INPATIENT Condition: STABLE Referrals: EMILY BASSETT MD (PCP) Justicifation of Admission Dx: Justifications for Admission: Justification of Admission Dx: Yes Sepsis: Infection SANJIV OSBORN MD Oct 22, 2019 18:58
[2019-10-22 19:06] LABS: PROTHROMBIN TIME PATIENT 14.4 SEC (11.7-14.0)
[2019-10-22 19:12] LABS: BILIRUBIN,URINE NEGATIVE (NEG); CLARITY,URINE CLEAR; COLOR,URINE YELLOW; NITRITE,URINE NEGATIVE (NEG); PROTEIN,URINE NEGATIVE (NEG-TRACE); UROBILINOGEN,URINE 0.2 mg/dL (0.2 mg/dL)
[2019-10-22 19:19] LABS: ALBUMIN/GLOBULIN RATIO 0.9 (1.0-1.7); CALCIUM 9.7 mg/dL (8.5-10.1); GFR 54.8; TOTAL BILIRUBIN 0.8 mg/dL (0.2-1.0); TOTAL PROTEIN 6.3 g/dL (6.4-8.2)
[2019-10-22 19:20] LABS: BACTERIA,URINE 0 /HPF (0-FEW); RBC,URINE RARE /HPF (0-2); WBC,URINE RARE /HPF (0-4)
[2019-10-22 19:23] LABS: % LYMPHS 4 % (24-48); % MONOS 1 % (0-10); % SEGS 95 % (35-66); POTASSIUM 2.8 mmol/L (3.5-5.1)
[2019-10-22 19:24] LABS: PLT ESTIMATE ADEQUATE (ADEQUATE)
[2019-10-22] MEDS ORDERED: POTASSIUM CHLORIDE 20 MEQ TABLET.ER. PO ONE ×3 (19:45→21:30)
[2019-10-22] MEDS ORDERED: PIPERACILLIN/TAZOBACTAM 3.375 GM in IV NORMAL SALINE 50ML 50 ML IV ONE (20:00)
[2019-10-22] MEDS: POTASSIUM CHLORIDE 10MEQ 100 ML IV SCH ×3 (20:05→23:48)
[2019-10-22] MEDS: DAPTOmycin (GENERIC) IVPB 480 MG in IV NORMAL SALINE 50ML 50 ML IV SCH (20:06)
--- NOTE | 2019-10-22 20:21 | RAD ---
CHEST AP ONLY History: Fever Comparison: January 11, 2019 Findings: Single view of the chest is submitted. There is no infiltrate, pneumothorax, or effusion. The pericardial cardiac silhouette is within normal limits in size. There are again thoracic spinal stimulator leads. There is atherosclerotic calcification near aortic arch. There is cervical fusion hardware, not fully evaluated. Impression: 1. There is no radiographic evidence of acute cardiopulmonary disease. Electronically signed by: Ketan Alvarenga MD (10/22/2019 8:18 PM) [facility]
[2019-10-22] MEDS ORDERED: ALBUTEROL SULFATE 2.5 MG/3 ML NEBU. NEB PRN (21:15)
[2019-10-22] MEDS ORDERED: guaiFENesin ORAL 200 MG/10 ML LIQUID. PO PRN (21:15)
[2019-10-22] MEDS ORDERED: cloNIDine HCL 0.1 MG TABLET PO PRN (21:15)
[2019-10-22] MEDS ORDERED: HYDROmorphone 2 MG/ML VIAL IV PRN (21:15)
[2019-10-22] MEDS ORDERED: ACETAMINOPHEN 325 MG TABLET. PO PRN (21:15)
[2019-10-22] MEDS ORDERED: 0.9 % SODIUM CHLORIDE 10 ML DISP.SYRIN. IV PRN (21:15)
[2019-10-22 21:37] VITALS: BP 134/63
[2019-10-22] MEDS: IV NORMAL SALINE 1000ML BAG 1,000 ML IV SCH (21:45)
[2019-10-22] MEDS: HYDROmorphone 2 MG/ML VIAL IV PRN (21:46)
[2019-10-22] MEDS: ENOXAPARIN 40 MG/0.4 ML SYRINGE. SQ SCH (21:46)
[2019-10-22] MEDS: PIPERACILLIN/TAZOBACTAM 3.375 GM in IV NORMAL SALINE 50ML 50 ML IV SCH (23:48)
[2019-10-23] MEDS: POTASSIUM CHLORIDE 10MEQ 100 ML IV SCH (00:53)
[2019-10-23] MEDS: HYDROmorphone 2 MG/ML VIAL IV PRN ×4 (01:51→16:48)
[2019-10-23 03:00] VITALS: BP 144/65
[2019-10-23 04:53] LABS: BASO # 0.1 x10^3/uL (0.0-0.2); BASO % 0 % (0-3); EOS # 0.1 x10^3/uL (0.0-0.7); EOS % 1 % (0-3); HEMATOCRIT 34.3 % (36.0-47.0); HEMOGLOBIN 11.1 g/dL (12.0-15.5); LYMPH # 0.4 x10^3/uL (1.0-4.8); LYMPH % 2 % (24-48); MEAN CORPUSCULAR HEMOGLOBIN 26 pg (25-35); MEAN CORPUSCULAR HGB CONC 32 g/dL (31-37); MEAN CORPUSCULAR VOLUME 81 fL (79-100); MONO # 0.9 x10^3/uL (0.0-1.1); MONO % 5 % (0-9); NEUT # 16.4 x10^3/uL (1.8-7.7); NEUT % 92 % (31-73); PLATELET COUNT 341 x10^3/uL (140-400); RED BLOOD COUNT 4.26 x10^6/uL (3.50-5.40); RED CELL DISTRIBUTION WIDTH 14.7 % (11.5-14.5); WHITE BLOOD COUNT 17.8 x10^3/uL (4.0-11.0)
[2019-10-23 05:13] LABS: CALCIUM 8.6 mg/dL (8.5-10.1); GFR 54.8; POTASSIUM 3.6 mmol/L (3.5-5.1)
[2019-10-23] MEDS: PIPERACILLIN/TAZOBACTAM 3.375 GM in IV NORMAL SALINE 50ML 50 ML IV SCH ×4 (06:03→23:41)
[2019-10-23] MEDS: IV NORMAL SALINE 1000ML BAG 1,000 ML IV SCH ×2 (06:06→22:23)
[2019-10-23 07:59] VITALS: BP 140/63
[2019-10-23] MEDS ORDERED: POTASSIUM CHLORIDE 20 MEQ TABLET.ER. PO SCH (08:00)
--- NOTE | 2019-10-23 11:01 | PDOC1 ---
History and Physical Date of Admission Date of Admission DATE: 10/23/19 TIME: 11:01 Source Source: Chart review, Patient History of Present Illness History of Present Illness Ms Baig, is a 69 year old female who presents with complaints of increasing pain in the right knee. The patient is a pleasant 69-year-old female who unfortunately has had some troubles with her right knee replacement. She has had an explant of the hardware. She tells me that it was a Corynabacteria originally. Patient reports that her last set of antibiotics was back in August. Patient states that yesterday she began to notice increasing pain, swelling and increased drainage from the knee. She is having difficulty walking and is here with concern for that. In addition today she was noted to have a fever upon arrival. She denied chest pain and reports some mild shortness of breath especially when she gets anxious. She denied PND, orthopnea, nausea vomiting, diarrhea, melena hematochezia, change in urination. She denied any change in smell or taste, cough or congestion. She rates the pain a 10 out of 10, sharp and unrelenting, does not radiate. Past Medical History Cardiovascular: HTN Pulmonary: No pertinent hx GI: GERD, Other Heme/Onc: Cancer Hepatobiliary: No pertinent hx, Cholelithiasis Psych: Anxiety, Depression Rheumatologic: No pertinent hx Infectious disease: No pertinent hx Renal/: Renal Ca. Endocrine: No pertinent hx Past Surgical History Past Surgical History: Cataract Removal, Total knee replacement, Tonsillectomy, Hysterectomy, Other Family History Family History: Hypertension Social History Smoke: No ALCOHOL: rare Drugs: None Current Problem List Problem List Problems Medical Problems: (1) Fever Status: Acute (2) Hypokalemia Status: Acute (3) Right knee pain Status: Acute (4) Sepsis Status: Acute Current Medications Current Medications Current Medications Sodium Chloride 1,000 ml @ 1,000 mls/hr 1X ONCE IV Last administered on 10/22/19at 18:59; Start 10/22/19 at 18:45; Stop 10/22/19 at 19:44; Status DC Hydromorphone HCl (Dilaudid) 1 mg 1X ONCE IV Last administered on 10/22/19at 18:57; Start 10/22/19 at 18:45; Stop 10/22/19 at 18:49; Status DC Acetaminophen (Tylenol) 650 mg 1X ONCE PO Last administered on 10/22/19at 18:56; Start 10/22/19 at 18:45; Stop 10/22/19 at 18:49; Status DC Potassium Chloride (Klor-Con) 60 meq 1X ONCE PO Last administered on 10/22/19at 20:06; Start 10/22/19 at 19:45; Stop 10/22/19 at 19:46; Status DC Potassium Chloride/Water 100 ml @ 100 mls/hr Q1H IV Last administered on 10/23/19at 00:53; Start 10/22/19 at 19:50; Stop 10/22/19 at 23:49; Status DC Daptomycin 480 mg/ Sodium Chloride 50 ml @ 100 mls/hr Q24H IV Last administered on 10/22/19at 20:06; Start 10/22/19 at 20:30 Piperacillin Sod/ Tazobactam Sod 3.375 gm/Sodium Chloride 50 ml @ 100 mls/hr 1X ONCE IV Last administered on 10/22/19at 20:06; Start 10/22/19 at 20:00; Stop 10/22/19 at 20:29; Status DC Sodium Chloride (Normal Saline Flush) 3 ml QSHIFT PRN IV AFTER MEDS AND BLOOD DRAWS; Start 10/22/19 at 21:15 Sodium Chloride 1,000 ml @ 70 mls/hr [id number] IV Last administered on 10/23/19at 06:06; Start 10/22/19 at 21:30 Ondansetron HCl (Zofran) 4 mg PRN Q4HRS PRN IV NAUSEA/VOMITING; Start 10/22/19 at 21:15 Acetaminophen (Tylenol) 650 mg PRN Q4HRS PRN PO TEMP OVER 100.4F OR MILD PAIN; Start 10/22/19 at 21:15 Clonidine HCl (Catapres) 0.1 mg PRN Q6HRS PRN PO SBP>160 OR DBP>90; Start 10/22/19 at 21:15 Docusate Sodium (Colace) 100 mg PRN BID PRN PO HARD STOOLS; Start 10/22/19 at 21:15 Albuterol Sulfate (Ventolin Neb Soln) 2.5 mg PRN Q4HRS PRN NEB SHORTNESS OF BREATH; Start 10/22/19 at 21:15 Guaifenesin (Robitussin) 200 mg PRN Q4HRS PRN PO COUGH; Start 10/22/19 at 21:15 Hydromorphone HCl (Dilaudid) 0.5 mg PRN Q2HRS PRN IV MODERATE PAIN Last administered on 10/22/19at 23:49; Start 10/22/19 at 21:15 Enoxaparin Sodium (Lovenox 40mg Syringe) 40 mg Q24H SQ Last administered on 10/22/19at 21:46; Start 10/22/19 at 22:00 Potassium Chloride (Klor-Con) 40 meq 1X ONCE PO ; Start 10/22/19 at 21:30; Stop 10/22/19 at 21:40; Status DC Potassium Chloride (Klor-Con) 20 meq 1X ONCE PO ; Start 10/22/19 at 21:30; Stop 10/22/19 at 21:40; Status DC Potassium Chloride (Klor-Con) 20 meq [id number] PO Last administered on 10/23/19at 07:53; Start 10/23/19 at 08:00 Hydromorphone HCl (Dilaudid) 1 mg PRN Q4HRS PRN IV SEVERE PAIN Last administered on 10/23/19at 10:18; Start 10/22/19 at 21:15 Piperacillin Sod/ Tazobactam Sod 3.375 gm/Sodium Chloride 50 ml @ 100 mls/hr Q6HRS IV Last administered on 10/23/19at 06:03; Start 10/23/19 at 00:00 Active Scripts Active Daptomycin 350 Mg Vial 460 Mg IV DAILY 30 Days Merrem (Meropenem) 500 Mg Vial 500 Mg IV Q6HRS 20 Days Dilaudid (Hydromorphone Hcl) 8 Mg Tablet 1 Tab PO PRN Q4HRS PRN MDD 6 Tablet(s) 14 Days Reported Maxzide 75 Mg-50 Mg Tablet (Triamterene/Hydrochlorothiazid) 1 Each Tablet 1 Tab PO DAILY Protonix (Pantoprazole Sodium) 20 Mg Tablet.dr 20 Mg PO HS Coreg (Carvedilol) 6.25 Mg Tablet 1 Tab PO BID Potassium Chloride (Potassium Chloride) 10 Meq Capsule.er 10 Meq PO UD Zetia (Ezetimibe) 10 Mg Tablet 1 Tab PO DAILY AM Vitamin D2 (Ergocalciferol (Vitamin D2)) 50,000 Unit Capsule 50,000 Unit PO QSU Lexapro (Escitalopram Oxalate) 20 Mg Tablet 40 Mg PO DAILY Cymbalta (Duloxetine Hcl) 60 Mg Capsule.dr 60 Mg PO BID Allergies Allergies: Coded Allergies: Sulfa (Sulfonamide Antibiotics) (Verified Allergy, Intermediate, Rash, Nausea and Vomiting, 07/25/19) cephalexin (Verified Allergy, Intermediate, RASH, HIVES, NAUSEA/VOMITING, 07/25/19) Can take amoxicillin gabapentin (Verified Allergy, Intermediate, RASH, ITCHING, 07/25/19) hydrocodone (Verified Allergy, Intermediate, Tolerates hydromorphone, 07/25/19) metformin (Verified Allergy, Intermediate, 07/25/19) oxymorphone (Verified Allergy, Intermediate, 07/25/19) Tolerates hydromorphone bupropion (Verified Adverse Reaction, Intermediate, "MAKES HER CRAZY", 07/25/19) oxycodone (Verified Adverse Reaction, Intermediate, Nausea and Vomiting, 07/25/19) rosuvastatin (Verified Adverse Reaction, Intermediate, MUSCLE ACHING, 07/25/19) ROS General: No: Chills, Night Sweats, Fatigue, Malaise, Appetite, Other PSYCHOLOGICAL ROS: No: Anxiety, Behavioral Disorder, Concentration difficultie, Decreased libido, Depression, Disorientation, Hallucinations, Hostility, Irritablity, Memory difficulties, Mood Swings, Obsessive thoughts, Physical abuse, Sexual abuse, Sleep disturbances, Suicidal ideation, Other Eyes: No Blurry vision, No Decreased vision, No Double vision, No Dry eyes, No Excessive tearing, No Eye Pain, No Itchy Eyes, No Loss of vision, No Photophobia, No Scotomata, No Uses contacts, No Uses glasses, No Other HEENT: No: Heacaches, Visual Changes, Hearing change, Nasal congestion, Nasal discharge, Oral lesions, Sinus pain, Sore Throat, Epistaxis, Sneezing, Snoring, Tinnitus, Vertigo, Vocal changes, Other Respiratory: No: Cough, Hemoptysis, Orthopnea, Pleuritic Pain, Shortness of breath, SOB with excertion, Sputum Changes, Stridor, Tachypnea, Wheezing, Other Cardiovascular: No Chest Pain, No Palpitations, No Orthopnea, No Paroxysmal Noc. Dyspnea, No Edema, No Lt Headedness, No Other Gastrointestinal: No Nausea, No Vomiting, No Abdominal Pain, No Diarrhea, No Constipation, No Melena, No Hematochezia, No Other Genitourinary: No Dysuria, No Frequency, No Incontinence, No Hematuria, No Retention, No Discharge, No Urgency, No Pain, No Flank Pain, No Other, No , No , No , No , No , No , No Musculoskeletal: No Gait Disturbance, No Joint Pain, No Joint Stiffness, No Joint Swelling, No Muscle Pain, No Muscular Weakness, No Pain In:, No Swelling In:, No Other Neurological: No Behavorial Changes, No Bowel/Bladder ControlChng, No Conf usion, No Dizziness, No Gait Disturbance, No Headaches, No Impaired Coord/balance, No Memory Loss, No Numbness/Tingling, No Seizures, No Speech Problems, No Tremors, No Visual Changes, No Weakness, No Other Skin: Yes Dry Skin; No Eczema, No Hair Changes, No Lumps, No Mole Changes, No Mottling, No Nail Changes, No Pruritus, No Rash, No Skin Lesion Changes, No Other, No Acne Physical Exam General: Alert, Cooperative, moderate distress HEENT: Atraumatic, PERRLA, Mucous membr. moist/pink Lungs: Clear to auscultation, Normal air movement Heart: S1S2, no gallops, no murmurs Abdomen: Soft Extremities: No cyanosis, Other Skin: Other (irritation and drainage at knee) Neuro: Normal gait, Sensation intact Psych/Mental Status: Other (emotional, upset, ) Vitals Vitals Vital Signs Date Time Temp Pulse Resp B/P (MAP) Pulse Ox O2 Delivery O2 Flow Rate FiO2 10/23/19 10:18 18 Nasal Cannula 2.0 10/23/19 07:59 100.2 93 140/63 (88) 94 100.2 Labs Labs Laboratory Tests Test 10/22/19 18:15 10/22/19 18:55 10/23/19 03:55 10/23/19 04:30 White Blood Count 17.4 x10^3/uL (4.0-11.0) 17.8 x10^3/uL (4.0-11.0) Red Blood Count 4.67 x10^6/uL (3.50-5.40) 4.26 x10^6/uL (3.50-5.40) Hemoglobin 12.1 g/dL (12.0-15.5) 11.1 g/dL (12.0-15.5) Hematocrit 37.2 % (36.0-47.0) 34.3 % (36.0-47.0) Mean Corpuscular Volume 80 fL (79-100) 81 fL (79-100) Mean Corpuscular Hemoglobin 26 pg (25-35) 26 pg (25-35) Mean Corpuscular Hemoglobin Concent 33 g/dL (31-37) 32 g/dL (31-37) Red Cell Distribution Width 15.3 % (11.5-14.5) 14.7 % (11.5-14.5) Platelet Count 407 x10^3/uL (140-400) 341 x10^3/uL (140-400) Neutrophils (%) (Auto) 93 % (31-73) 92 % (31-73) Lymphocytes (%) (Auto) 2 % (24-48) 2 % (24-48) Monocytes (%) (Auto) 4 % (0-9) 5 % (0-9) Eosinophils (%) (Auto) 0 % (0-3) 1 % (0-3) Basophils (%) (Auto) 0 % (0-3) 0 % (0-3) Neutrophils # (Auto) 16.2 x10^3/uL (1.8-7.7) 16.4 x10^3/uL (1.8-7.7) Lymphocytes # (Auto) 0.3 x10^3/uL (1.0-4.8) 0.4 x10^3/uL (1.0-4.8) Monocytes # (Auto) 0.8 x10^3/uL (0.0-1.1) 0.9 x10^3/uL (0.0-1.1) Eosinophils # (Auto) 0.1 x10^3/uL (0.0-0.7) 0.1 x10^3/uL (0.0-0.7) Basophils # (Auto) 0.1 x10^3/uL (0.0-0.2) 0.1 x10^3/uL (0.0-0.2) Segmented Neutrophils % 95 % (35-66) Lymphocytes % 4 % (24-48) Monocytes % 1 % (0-10) Platelet Estimate Adequate (ADEQUATE) Prothrombin Time 14.4 SEC (11.7-14.0) Prothromb Time International Ratio 1.2 (0.8-1.1) Sodium Level 133 mmol/L (136-145) 136 mmol/L (136-145) Potassium Level 2.8 mmol/L (3.5-5.1) 3.6 mmol/L (3.5-5.1) Chloride Level 93 mmol/L (98-107) 100 mmol/L (98-107) Carbon Dioxide Level 32 mmol/L (21-32) 30 mmol/L (21-32) Anion Gap 8 (6-14) 6 (6-14) Blood Urea Nitrogen 12 mg/dL (7-20) 12 mg/dL (7-20) Creatinine 1.0 mg/dL (0.6-1.0) 1.0 mg/dL (0.6-1.0) Estimated GFR (Cockcroft-Gault) 54.8 54.8 BUN/Creatinine Ratio 12 (6-20) Glucose Level 158 mg/dL (70-99) 179 mg/dL (70-99) Lactic Acid Level 2.0 mmol/L (0.4-2.0) Calcium Level 9.7 mg/dL (8.5-10.1) 8.6 mg/dL (8.5-10.1) Total Bilirubin 0.8 mg/dL (0.2-1.0) Aspartate Amino Transf (AST/SGOT) 12 U/L (15-37) Alanine Aminotransferase (ALT/SGPT) 21 U/L (14-59) Alkaline Phosphatase 91 U/L (46-116) Troponin I Quantitative < 0.017 ng/mL (0.000-0.055) Total Protein 6.3 g/dL (6.4-8.2) Albumin 3.0 g/dL (3.4-5.0) Albumin/Globulin Ratio 0.9 (1.0-1.7) Urine Collection Type Unknown Urine Color Yellow Urine Clarity Clear Urine pH 6.0 (<5.0-8.0) Urine Specific [place] 1.015 (1.000-1.030) Urine Protein Negative mg/dL (NEG-TRACE) Urine Glucose (UA) Negative mg/dL (NEG) Urine Ketones (Stick) Negative mg/dL (NEG) Urine Blood Negative (NEG) Urine Nitrite Negative (NEG) Urine Bilirubin Negative (NEG) Urine Urobilinogen Dipstick 0.2 mg/dL (0.2 mg/dL) Urine Leukocyte Esterase Negative (NEG) Urine RBC Rare /HPF (0-2) Urine WBC Rare /HPF (0-4) Urine Squamous Epithelial Cells None /LPF Urine Bacteria 0 /HPF (0-FEW) Laboratory Tests Test 10/22/19 18:15 10/22/19 18:55 10/23/19 03:55 10/23/19 04:30 White Blood Count 17.4 x10^3/uL (4.0-11.0) 17.8 x10^3/uL (4.0-11.0) Red Blood Count 4.67 x10^6/uL (3.50-5.40) 4.26 x10^6/uL (3.50-5.40) Hemoglobin 12.1 g/dL (12.0-15.5) 11.1 g/dL (12.0-15.5) Hematocrit 37.2 % (36.0-47.0) 34.3 % (36.0-47.0) Mean Corpuscular Volume 80 fL (79-100) 81 fL (79-100) Mean Corpuscular Hemoglobin 26 pg (25-35) 26 pg (25-35) Mean Corpuscular Hemoglobin Concent 33 g/dL (31-37) 32 g/dL (31-37) Red Cell Distribution Width 15.3 % (11.5-14.5) 14.7 % (11.5-14.5) Platelet Count 407 x10^3/uL (140-400) 341 x10^3/uL (140-400) Neutrophils (%) (Auto) 93 % (31-73) 92 % (31-73) Lymphocytes (%) (Auto) 2 % (24-48) 2 % (24-48) Monocytes (%) (Auto) 4 % (0-9) 5 % (0-9) Eosinophils (%) (Auto) 0 % (0-3) 1 % (0-3) Basophils (%) (Auto) 0 % (0-3) 0 % (0-3) Neutrophils # (Auto) 16.2 x10^3/uL (1.8-7.7) 16.4 x10^3/uL (1.8-7.7) Lymphocytes # (Auto) 0.3 x10^3/uL (1.0-4.8) 0.4 x10^3/uL (1.0-4.8) Monocytes # (Auto) 0.8 x10^3/uL (0.0-1.1) 0.9 x10^3/uL (0.0-1.1) Eosinophils # (Auto) 0.1 x10^3/uL (0.0-0.7) 0.1 x10^3/uL (0.0-0.7) Basophils # (Auto) 0.1 x10^3/uL (0.0-0.2) 0.1 x10^3/uL (0.0-0.2) Segmented Neutrophils % 95 % (35-66) Lymphocytes % 4 % (24-48) Monocytes % 1 % (0-10) Platelet Estimate Adequate (ADEQUATE) Prothrombin Time 14.4 SEC (11.7-14.0) Prothromb Time International Ratio 1.2 (0.8-1.1) Sodium Level 133 mmol/L (136-145) 136 mmol/L (136-145) Potassium Level 2.8 mmol/L (3.5-5.1) 3.6 mmol/L (3.5-5.1) Chloride Level 93 mmol/L (98-107) 100 mmol/L (98-107) Carbon Dioxide Level 32 mmol/L (21-32) 30 mmol/L (21-32) Anion Gap 8 (6-14) 6 (6-14) Blood Urea Nitrogen 12 mg/dL (7-20) 12 mg/dL (7-20) Creatinine 1.0 mg/dL (0.6-1.0) 1.0 mg/dL (0.6-1.0) Estimated GFR (Cockcroft-Gault) 54.8 54.8 BUN/Creatinine Ratio 12 (6-20) Glucose Level 158 mg/dL (70-99) 179 mg/dL (70-99) Lactic Acid Level 2.0 mmol/L (0.4-2.0) Calcium Level 9.7 mg/dL (8.5-10.1) 8.6 mg/dL (8.5-10.1) Total Bilirubin 0.8 mg/dL (0.2-1.0) Aspartate Amino Transf (AST/SGOT) 12 U/L (15-37) Alanine Aminotransferase (ALT/SGPT) 21 U/L (14-59) Alkaline Phosphatase 91 U/L (46-116) Troponin I Quantitative < 0.017 ng/mL (0.000-0.055) Total Protein 6.3 g/dL (6.4-8.2) Albumin 3.0 g/dL (3.4-5.0) Albumin/Globulin Ratio 0.9 (1.0-1.7) Urine Collection Type Unknown Urine Color Yellow Urine Clarity Clear Urine pH 6.0 (<5.0-8.0) Urine Specific [place] 1.015 (1.000-1.030) Urine Protein Negative mg/dL (NEG-TRACE) Urine Glucose (UA) Negative mg/dL (NEG) Urine Ketones (Stick) Negative mg/dL (NEG) Urine Blood Negative (NEG) Urine Nitrite Negative (NEG) Urine Bilirubin Negative (NEG) Urine Urobilinogen Dipstick 0.2 mg/dL (0.2 mg/dL) Urine Leukocyte Esterase Negative (NEG) Urine RBC Rare /HPF (0-2) Urine WBC Rare /HPF (0-4) Urine Squamous Epithelial Cells None /LPF Urine Bacteria 0 /HPF (0-FEW) VTE Prophylaxis Ordered VTE Prophylaxis Devices: Yes VTE Pharmacological Prophylaxi: Yes Assessment/Plan Assessment/Plan acute on ongoing knee pain, knee infection right knee joint infection s/p replacemetn, with spacer, IV abx, IV pain control, consult those that have seen her previously for same obesity htn depression Justicifation of Admission Dx: Justifications for Admission: Justification of Admission Dx: Yes Sepsis: Infection DEIRDRE AVILA MD Oct 23, 2019 11:01
[2019-10-23 11:12] VITALS: BP 147/67
[2019-10-23] MEDS ORDERED: HYDROMORPHONE HCL PO PRN (13:45)
--- NOTE | 2019-10-23 13:59 | CONS ---
DATE OF CONSULTATION: 10/23/2019 REFERRING PHYSICIAN: Dr. Zee. REASON FOR CONSULTATION: Antibiotic management, fever, possible right knee infection. HISTORY OF PRESENT ILLNESS: A 69-year-old female well known to us from her previous hospitalization for multiple surgeries right knee presented to the ER as she went home last Wednesday from [facility]. The patient did well, but was very exhausted and slept through Wednesday and . On Wednesday evening, she was sitting in a chair and had sudden onset of pain in the right knee at which time she was unable to get up, also had urinary incontinence. She could not bear any weight on the rt leg. She feels that her wound VAC is not working since she left [facility] and went home. She also had fever yesterday. She denied any headache, sore throat, nausea, vomiting, some shortness of breath, no orthopnea, PND, diarrhea, abdominal pain, symptoms, change in smell or taste, chest pain with deep breathing, headache, sore throat. Upon presentation, her fever was 100.3. White count is elevated at 17.4 with left shift. Potassium was 2.8, sodium was 133, glucose was 158. Lactate of 2.0. Troponin was normal. Albumin of 3.0. UA was negative. Chest x-ray showed no acute infiltrate. She underwent COVID testing, which is pending at this time. She was started on empiric daptomycin and Zosyn for concern of sepsis. She had blood cultures done, 06/16 blood cultures from 10/22/2019 are already positive for gram-positive cocci in clusters. ID and TANYA is pending at this time. She was seen at Orthopedic Surgery for follow up before discharge from [facility]. They felt that she still had ongoing infection in the right knee and told her that she was not a candidate for fusion at this time. Per patient report she had synovial aspiration done in outpatient clinic at [facility].. I have called Microbiology Lab. They could not give me any information on phone due to change in policy. We will have to await their fax results for further input from medical records. The patient has not recieved a call from Orthopedics yet. Today, the patient continues to have pain and swelling in the right knee, with increased pain. The patient denies being on any antibiotics since 09/26/2019 when she completed her course of meropenem and daptomycin . PICC line was taken out when she was seen in our office on 09/28/2019. Pt denies any sick contact ,fall or travel. PAST MEDICAL HISTORY: Nephrectomy, diabetes, mild renal insufficiency, hypertension, obesity, GERD, depression, anxiety, history of cholelithiasis. PAST SURGICAL HISTORY: Cataract removal, total knee replacement, right tonsillectomy, hysterectomy. FAMILY HISTORY: As per HPI. SOCIAL HISTORY: Alcohol rare. No drugs, nonsmoker. and lives with spouse, has 3 boys. CURRENT MEDICATIONS: Daptomycin and Zosyn. Other medications reviewed in medication list. ROS negative except for above. ALLERGIES: SULFA, RASH, NAUSEA, VOMITING; CEPHALEXIN, RASH, HIVES, NAUSEA, VOMITING, can take amoxicillin, GABAPENTIN, HYDROCODONE, METFORMIN, OXYMORPHONE, BUPROPION, oxycodone, rosuvastatin. PHYSICAL EXAMINATION: VITAL SIGNS: Temperature 99.5, T-max 100.3, pulse 82, respiratory rate 18, blood pressure 147/67, oxygen saturation 96% on 2 liters by nasal cannula. GENERAL: Alert, oriented x 3 female, slightly anxious, lying comfortably in bed, in no acute distress. HEENT: Normocephalic, atraumatic. Anicteric. No thrush. Oral mucosa moist. NECK: Supple, no JVD, no thyromegaly. LUNGS: Clear bilaterally. No wheezing. HEART: S1, S2. No gallops or murmurs. ABDOMEN: Soft, obese. Bowel sounds present, nontender, nondistended. EXTREMITIES: Right knee swelling present. Wound VAC in place, tender. Mild warmth, no gross redness. No drainage seen in the canister. No other joint swelling noted. Decrease in range of motion at the right knee due to pain and swelling. NEUROLOGIC: Alert and oriented x 3, grossly nonfocal. PSYCHIATRIC: Cooperative, appropriate mood and affect. PIV looks okay. Slightly anxious, but cooperative and calm. DERMATOLOGIC: Warm, dry. No generalized rash. LABORATORY DATA: UA negative. WBC 17.8, was 17.4; hemoglobin 11.1, hematocrit 34.3, platelets 341, neutrophils 92. Sodium 136, potassium 3.6, chloride 100, bicarbonate 30, BUN 12, creatinine 1.0, glucose 176. Lactate 2.0. LFTs within normal limits except for albumin at 3.0. UA negative MICROBIOLOGY: Blood culture 4/4 bottles GPC in clusters from 10/22/2019. IMAGING: Chest x-ray, negative. IMPRESSION: Very complicated case 1. Fever, source appears to be right knee infection. Leukocytosis. 2. Sepsis Gram positive Bacteremia source appears to be RT Knee infection POA 10/22/2019 3. Right knee replacement 08/25/2016 with multiple surgeries, 4. 08/15/2019 status post removal of right knee joint implant and plate and screw hardware with debridement and placement of nonarticulating antibiotic spacer, cultures, status post irrigation and debridement of the right knee with hematoma evacuation and revision of antibiotic spacer.Cultures negative 5. History of persistent drainage from right knee, 08/02/2019, 07/25/2019 status post I and D, right knee with poly exchange and extensive mechanism repair done. 07/25/2019, intraoperative cultures positive for Corynebacterium species, sensitive to meropenem and daptomycin. Continued to have drainage postoperatively with wound VAC since 08/02/2019. Concern for mechanical fascial defect. 6. History of multiple I and D's including poly exchange on 11/03/2016. 7. 04/16/2017 explantation of the right knee. 8. 07/06/2017, reimplantation and ORIF of the medial condylar fracture. 9. 05/17/2018, patellar reconstruction with allograft repair. 10. 06/10/2018, exploration and debridement of the right knee. 11. 04/18/2019, she has had extensor mechanism reconstruction with allograft tissue. 12. Status post synovial aspirate at [facility] couple of days ago. October 2019 Culture information pending from 13. History of renal cancer, status post left nephrectomy with mild renal insufficiency. 14. Diabetes mellitus. 15 Hypertension. 16. Obesity. 17. Gastroesophageal reflux disease. 18. ALLERGIES TO SULFA, CEPHALEXIN, has tolerated amoxicillin. 19. Protein-calorie malnutrition. 20. Prolonged Rehab stay post surgeries above 21. Generalized debility 22. Wound Vac in place since last surgery due to continuous drainage. RECOMMENDATIONS: 1. Continue empiric daptomycin and Zosyn. 2. Repeat blood cultures in a.m. 3. Follow up ID of GPC in blood cultures from 10/22/2019. 4. Orthopedic consultation pending at this time. 5. I called microbiology lab at [facility] for culture data from knee aspiration. Unable to get any information at this time 6. Continue wound VAC care as directed by Orthopedics. 7. The patient would likely need synovial aspiration and or surgical intervention. 8. Monitor for antimicrobial toxicities. 9. Continue probiotics. 10. Pt may need to be transferred to tertiary care center 11. Discussed with patient about risk of limb loss and associated morbidity. Discussed with nursing staff. Thank you for allowing me to participate in this patient's care. If you have any questions, do not hesitate to contact me. DEEDEE GREEN MD DR: MARICRUZ/sherry JOB#: [id number] / [id number] LACHO
[2019-10-23 15:20] VITALS: BP 122/59
[2019-10-23] MEDS: HYDROmorphone 4 MG TABLET PO PRN ×3 (15:42→21:58)
[2019-10-23] MEDS: EZETIMIBE 10 MG TABLET. PO SCH (17:46)
[2019-10-23] MEDS: CARVEDILOL 6.25 MG TABLET. PO SCH (17:46)
[2019-10-23 19:51] VITALS: BP 124/58
[2019-10-23] MEDS: LACTOBACILLUS RHAMNOSUS GG 1 CAPSULE. PO SCH (20:24)
[2019-10-23] MEDS: DULoxetine HCL 30 MG CAPSULE.DR PO SCH (20:25)
[2019-10-23] MEDS: PANTOPRAZOLE 40 MG TABLET.DR. PO SCH (20:25)
[2019-10-23] MEDS: DAPTOmycin (GENERIC) IVPB 480 MG in IV NORMAL SALINE 50ML 50 ML IV SCH (21:42)
[2019-10-23] MEDS: ENOXAPARIN 40 MG/0.4 ML SYRINGE. SQ SCH (22:24)
--- NOTE | 2019-10-23 22:24 | CONS ---
DATE OF CONSULTATION: 10/23/2019 ORTHOPEDIC CONSULTATION REQUESTING PHYSICIAN: Dr. Marcos Busch. REASON FOR CONSULTATION: Right knee drainage and concern for infection. HISTORY OF PRESENT ILLNESS: The patient is familiar to me and a fall with disruption of her extensor mechanism and subsequent trauma to the area, resulting in drainage, incompetence of repair to her extensor mechanism and resulting explantation of her knee hardware with placement of a nonarticulating antibiotic spacer. She was actually being cared for at this point by Dr. Hernandez at [facility] who had accepted care of her for a planned right knee fusion, but due to the fact that he could not fit her in to the schedule. We had worked out a plan whereby I would do explantation of her knee, placed a spacer and subsequently placed her on antibiotics and have her follow up with him for a subsequent visit to assess her surgery. She was subsequently over the past several weeks placed at [facility], which is right around the corner from [facility] and she had gone through a course of antibiotics and had reported to a visit with Dr. Hernandez on 10/11. At that time, her knee was aspirated and she is unaware of the results of any cultures as she was not informed of them and I do not have any results on the chart at the present time and she indicates that at that time she was doing well and subsequently to that visit was sent home. She says that subsequent to her visit, she had not been on any type of antibiotics and had described any drainage that she had as bloody drainage without any cloudiness. She had been partially weightbearing on the right leg and indicated that when she first went home, her pain was well controlled, but as of last Wednesday, now approximately 4 days ago indicates that she was having more pain and swelling in the leg. Specifically, she said that the wound VAC machine that was placed on her leg from the rehab facility did not work very well. She felt the leg was swelling up a lot more and became very painful and difficult to get around. She then describes some difficulty lifting herself up and felt somewhat weak over the next couple of days and had increasing pain over that time and just difficulty with any movement of her leg and difficulty bearing any weight and was having a lot of problems trying to get around at all. She denies any fever or chills at that time and still indicated only red bloody drainage in the wound VAC and as of Wednesday really became weak and could not adequately get even up onto her bed with her 's help and they called 911 and she was brought to [facility]. Apparently, a decision was made not to go to [facility] where she had most recently received care and was going to receive her ongoing care because Dr. Hernandez had scheduled her for a repeat procedure for irrigation and debridement and apparently exchange of her spacer on 12/03. She said her situation was so severe. There were no way she could wait until that time and she is now at [facility]. She was admitted through the Emergency Department. PAST MEDICAL HISTORY: Significant for history of kidney cancer, DVT, depression, reflux disease, hypertension, hypercholesterolemia, back pain, and neuropathy in her legs. PAST SURGICAL HISTORY: Knee surgeries as above, hysterectomy, cervical fusion, appendectomy, tonsillectomy and a part of her kidney removed, hernia surgery as well as previous lumbar surgery and cataract surgery. SOCIAL HISTORY: She is a former smoker. Denies alcohol or drug use. Lives at home with her who has significant medical issues including renal dialysis. ALLERGIES: SHE HAS MULTIPLE ALLERGIES INCLUDING CEPHALEXIN, SULFA, GABAPENTIN, HYDROCODONE, METFORMIN, OXYMORPHONE, BUPROPION, OXYCODONE, AND ROSUVASTATIN. MEDICATIONS: List is reviewed and noted that she was just put back on antibiotics on her admission here. REVIEW OF SYSTEMS: Significant for the weakness that she had trying to get up, severe pain in the right leg and increased drainage from her right knee. PHYSICAL EXAMINATION: VITAL SIGNS: Her most recent temperature was 99.0, pulse 79, respirations 20, blood pressure 124/58, 100% saturation on 2 liters of oxygen. EXTREMITIES: On examination of the right knee, she now has very cloudy blood-tinged drainage that has a bit of purulent character to it. She has a total of 3 openings along the incision area anteriorly to her right knee just lateral to the midline and there is no redness or erythema surrounding, but her knee is very swollen and there is no gross movement noted as the spacer is holding it in slight flexion. She has tenderness with any motion, but does have hip and ankle motion bilaterally and normal motion of the contralateral left knee. She has baseline neuropathy in both feet and her toes are curled downward on the right foot. IMPRESSION: 1. History of right knee explantation and placement of antibiotic spacer. 2. Recent knee aspiration at [facility] with plans for right knee fusion. 3. Recent increase in weakness, knee pain, drainage with change in character of drainage yesterday to cloudy/purulent in nature. TREATMENT PLAN: She is very discouraged because she is aware of the previous plan of her visit at [facility] with Dr. Hernandez for aspiration and likely proceeding with her knee fusion. She never heard back about the culture results from that institution, which have now been about 12 days. Nevertheless, Dr. Hernandez was apparently concerned due to her drainage at the time that perhaps there was still a concern for infection and he had planned an additional irrigation and debridement procedure with removal, reimplantation of her spacer, but unfortunately had scheduled that for nearly 6 weeks from now, which would just not be tolerable given her current situation. I had gone over with her that the knee at this point has a very concerning character to her drainage and particularly given that she has been off antibiotics since the aspiration and has had drainage since that time. There is certainly concern for infection at this point. Even though, we do not have the results from the aspiration at . I think it is clear, she needs to undergo one of the 2 procedures and the required procedure to proceed with the plan for salvaging her leg if possible would be an irrigation and debridement of her leg with removal of the current spacer, debridement and washout of the knee, cultures and replantation of a rigid spacer filled with antibiotics and also a PICC line to allow administration of further IV antibiotics for her. Alternatively really the only other possibility would be an above knee amputation, which she has really been that would rather prefer to salvage the leg if at all possible. While ideally Dr. Hernandez would be able to perform the procedure as planned. If it is scheduled this far out, clearly this will not be in her best interest to wait given the current appearance of the knee and I suggested if we are going to proceed with his stated plans, I think it is really urgent at this point that we undergo the irrigation and debridement procedure and try to clean out and salvage the area if possible to give the best chance to allow a later preservation for fusion. I told her that it may not be possible, but certainly I do not want to lose any more time as she potentially has infection, developing in the area, especially since he is apparently not available to perform the procedure at present. She does agree to proceed with surgical evaluation and treatment and all her questions were answered. She had also asked if a PICC line could be placed around the time of surgery if possible, which is certainly reasonable given that she will need longer term antibiotics and I really this request to the nursing living supervisor, so it could be worked out most advantageously around the time of surgery based on availability of personnel to accomplish this. LESLIE PEREZ MD DR: VINCE/sherry JOB#: [id number] / [id number]
[2019-10-23 23:30] VITALS: BP 131/67
[2019-10-24] VITALS (9 sets, daily range): BP systolic 109–140; BP diastolic 55–66
[2019-10-24] MEDS: HYDROmorphone 4 MG TABLET PO PRN ×2 (03:29→08:08)
[2019-10-24] MEDS: HYDROmorphone 2 MG/ML VIAL IV PRN ×2 (03:30→08:09)
--- NOTE | 2019-10-24 05:00 | EKG ---
[facility] [address] [place] [address] Test Date: 2019-10-22 Test Time: 19:07:29 Pat Name: GREYSON VELEZ Department: Room: Gender: F Mobile Marketing Manager: : 1950 Requested By: SANJIV OSBORN Order Number: [id number] Reading MD: Measurements Intervals [place] Rate: 108 P: 104 ND: 162 QRS: -17 QRSD: 92 T: 43 QT: 380 QTc: 514 Interpretive Statements SINUS TACHYCARDIA LEFTWARD AXIS CONSIDER RIGHT VENTRICULAR HYPERTROPHY POSSIBLY ABNORMAL ECG RI6.02 No previous ECG available for comparison
[2019-10-24] MEDS: PIPERACILLIN/TAZOBACTAM 3.375 GM in IV NORMAL SALINE 50ML 50 ML IV SCH ×3 (06:04→18:00)
--- NOTE | 2019-10-24 07:59 | PDOC ---
Infectious Disease Note Subjective: Subjective Patient complains of pain in the right knee awaiting surgery by Dr. De La Cruz later today Denies fever, nausea, vomiting, shortness of breath, diarrhea, abdominal pain, rash Otherwise as above Vital Signs: Vital Signs Vital Signs Date Time Temp Pulse Resp B/P (MAP) Pulse Ox O2 Delivery O2 Flow Rate FiO2 10/24/19 04:00 18 99 Room Air 10/24/19 03:51 97.9 71 122/60 (80) 2.0 97.9 Physical Exam: PHYSICAL EXAM GENERAL: Alert, oriented x 3 female, slightly anxious, lying comfortably in bed, in no acute distress. HEENT: Normocephalic, atraumatic. Anicteric. No thrush. Oral mucosa moist. NECK: Supple, no JVD, no thyromegaly. LUNGS: Clear bilaterally. No wheezing. HEART: S1, S2. No gallops or murmurs. ABDOMEN: Soft, obese. Bowel sounds present, nontender, nondistended. EXTREMITIES: Right knee swelling present. Dressing in place, Intact ,edema over right lower ext, NEUROLOGIC: Alert and oriented x 3, grossly nonfocal. PSYCHIATRIC: Cooperative, appropriate mood and affect. PIV looks okay. Slightly anxious, but cooperative and calm. DERMATOLOGIC: Warm, dry. No generalized rash. PIV looks clean Medications: Inpatient Meds: Current Medications Medications (Trade) Dose Ordered Sig/Hina Start Time Stop Time Status Last Admin Dose Admin Acetaminophen (Tylenol) 650 mg PRN Q4HRS PRN 10/22/19 21:15 Albuterol Sulfate (Ventolin Neb Soln) 2.5 mg PRN Q4HRS PRN 10/22/19 21:15 Ascorbic Acid (Vitamin C) 500 mg DAILY 10/24/19 09:00 Carvedilol (Coreg) 6.25 mg BIDWMEALS 10/23/19 17:00 10/23/19 17:46 6.25 MG Citalopram Hydrobromide (CeleXA) 40 mg DAILY 10/24/19 09:00 Clonidine HCl (Catapres) 0.1 mg PRN Q6HRS PRN 10/22/19 21:15 Daptomycin 480 mg/ Sodium Chloride 50 ml @ 100 mls/hr Q24H 10/22/19 20:30 10/23/19 21:42 100 MLS/HR Docusate Sodium (Colace) 100 mg PRN BID PRN 10/22/19 21:15 Duloxetine HCl (Cymbalta) 60 mg BID 10/23/19 21:00 10/23/19 20:25 60 MG Enoxaparin Sodium (Lovenox 40mg Syringe) 40 mg Q24H 10/22/19 22:00 10/23/19 22:24 40 MG EZETIMIBE (Zetia) 10 mg DAILY 10/23/19 15:00 10/23/19 17:46 10 MG Guaifenesin (Robitussin) 200 mg PRN Q4HRS PRN 10/22/19 21:15 Hydromorphone HCl (Dilaudid) 8 mg PRN Q4HRS PRN 10/23/19 21:45 10/24/19 03:29 8 MG Lactobacillus Rhamnosus (Culturelle) 1 cap BID 10/23/19 21:00 10/23/19 20:24 1 CAP Multivitamins (Thera M Plus) 1 tab DAILY 10/24/19 09:00 Non-Formulary Medication (Daptomycin ) 460 mg DAILY 10/24/19 09:00 UNV Non-Formulary Medication (Hydromorphone Hcl (Dilaudid)) 1 tab PRN Q4HRS PRN 10/23/19 13:45 UNV Ondansetron HCl (Zofran) 4 mg PRN Q4HRS PRN 10/22/19 21:15 Pantoprazole Sodium (Protonix) 40 mg QHS 10/23/19 21:00 10/23/19 20:25 40 MG Piperacillin Sod/ Tazobactam Sod 3.375 gm/Sodium Chloride 50 ml @ 100 mls/hr Q6HRS 10/23/19 00:00 10/24/19 06:04 100 MLS/HR Potassium Chloride/Water 100 ml @ 100 mls/hr Q1H 10/22/19 19:50 10/22/19 23:49 DC 10/23/19 00:53 100 MLS/HR Potassium Chloride (Klor-Con) 10 meq [id number] 10/24/19 09:00 Sodium Chloride 1,000 ml @ 70 mls/hr [id number] 10/22/19 21:30 10/23/19 22:23 70 MLS/HR Sodium Chloride (Normal Saline Flush) 3 ml QSHIFT PRN 10/22/19 21:15 Triamterene/HCTZ (Maxzide 37.5/ 25mg) 2 tab DAILY 10/24/19 09:00 Labs: Lab Laboratory Tests Test 10/24/19 03:25 Creatine Kinase 26 U/L (26-192) Micro RUN DATE: 10/23/19 [facility] *LIVE* PAGE 1 RUN TIME: 1118 Specimen Inquiry PATIENT: GREYSON VELEZ ACCT: [id number] LOC: [address] [place] [address] U: [id number] AGE/SX: 69/F ROOM: [facility] RE10/22/[address]: PERRY CHASE MD : 1950 BED: 1 DIS: STATUS: ADM IN TLOC: SPEC #: [id number] BUFFY: 10/22/19-1839 STATUS: JOSE R REQ #: [id number] RECD: 10/22/[address]: SANJIV OSBORN MD SOURCE: BLOOD ENTR: 10/22/[address] [facility] [address]: EMILY BASSETT MD [facility]: ORDERED: BCULT Procedure Result BLOOD CULTURE Final GRAM POSITIVE COCCI IN CLUSTERS SEEN IN 4 OF 4 BOTTLES, 2 SETS COLLECTED. CALLED TO Octavia/KIMBERLY INIGUEZ AT 1117 BY PROnoise. CULTURES SENT TO JOSE JOHNSON FOR FURTHER WORKUP. * This is an amended result. * A prior result that was reported as final has been changed. --------- --- Objective: Assessment: Very complicated case 1. Fever, source appears to be right knee infection with antibiotic spacer in place. Leukocytosis. 2. Sepsis Gram positive Bacteremia source appears to be RT Knee infection POA 10/22/2019 3. Right knee replacement 08/25/2016 with multiple surgeries, 4. 08/15/2019 status post removal of right knee joint implant and plate and screw hardware with debridement and placement of nonarticulating antibiotic spacer, cultures, status post irrigation and debridement of the right knee with hematoma evacuation and revision of antibiotic spacer.Cultures negative 5. History of persistent drainage from right knee, 08/02/2019, 07/25/2019 status post I and D, right knee with poly exchange and extensive mechanism repair done. 07/25/2019, intraoperative cultures positive for Corynebacterium species, sensitive to meropenem and daptomycin. Continued to have drainage postoperatively with wound VAC since 08/02/2019. Concern for mechanical fascial defect. 6. History of multiple I and D's including poly exchange on 11/03/2016. 7. 04/16/2017 explantation of the right knee. 8. 07/06/2017, reimplantation and ORIF of the medial condylar fracture. 9. 05/17/2018, patellar reconstruction with allograft repair. 10. 06/10/2018, exploration and debridement of the right knee. 11. 04/18/2019, she has had extensor mechanism reconstruction with allograft tissue. 12. Status post synovial aspirate at [facility] couple of days ago. October 2019 Culture information pending from 13. History of renal cancer, status post left nephrectomy with mild renal insufficiency. 14. Diabetes mellitus. 15 Hypertension. 16. Obesity. 17. Gastroesophageal reflux disease. 18. ALLERGIES TO SULFA, CEPHALEXIN, has tolerated amoxicillin. 19. Protein-calorie malnutrition. 20. Prolonged Rehab stay post surgeries above 21. Generalized debility 22. Wound Vac in place since last surgery due to continuous drainage. Plan: Plan of Care Continue daptomycin and Zosyn. Follow-up repeat blood cultures 10/23 Follow up ID of GPC in blood cultures from 10/22/2019. Dr. Hinson is planning for surgery later today; please send intraoperative cultures including AFB and fungal Synovial aspirate from October 13, 2019 from [facility] orthopedic clinic is still pending at this time Do not place PICC line until repeat blood cultures are negative for at least 48 hours October 23 Monitor for antimicrobial toxicities. Monitor labs in a.m. Follow-up cultures Orthopedic input noted Discussed with nursing staff. DEEDEE GREEN MD Oct 24, 2019 07:59
[2019-10-24] MEDS: CITALOPRAM 20 MG TABLET. PO SCH (08:07)
[2019-10-24] MEDS: DULoxetine HCL 30 MG CAPSULE.DR PO SCH ×2 (08:07→21:00)
[2019-10-24] MEDS: EZETIMIBE 10 MG TABLET. PO SCH (08:07)
[2019-10-24] MEDS: CARVEDILOL 6.25 MG TABLET. PO SCH ×2 (08:09→17:00)
[2019-10-24] MEDS: LACTOBACILLUS RHAMNOSUS GG 1 CAPSULE. PO SCH ×2 (08:53→21:00)
[2019-10-24] MEDS: TRIAMTERENE/HCTZ 37.5/25MG TABLET. PO SCH (08:53)
[2019-10-24] MEDS: POTASSIUM CHLORIDE 10 MEQ TABLET.ER. PO SCH (08:53)
[2019-10-24] MEDS: MULTIVITAMIN with MINERAL TABLET. PO SCH (08:53)
[2019-10-24] MEDS: ASCORBIC ACID 500 MG TABLET PO SCH (08:53)
[2019-10-24] MEDS ORDERED: DAPTOMYCIN IV SCH (09:00)
[2019-10-24] MEDS ORDERED: DEXAMETHASONE SOD PHOS 4 MG/ML VIAL ONE (13:45)
[2019-10-24] MEDS ORDERED: SEVOFLURANE 61 TO 120 MINUTES. IH ONE (13:45)
[2019-10-24] MEDS ORDERED: ONDANSETRON PF 4 MG/2 ML VIAL. ONE (13:45)
[2019-10-24] MEDS ORDERED: PROPOFOL 10 MG/ML (20ML) VIAL. IV ONE (13:45)
[2019-10-24] MEDS ORDERED: fentaNYL PF VIAL 100 MCG/2 ML VIAL ONE ×3 (15:04→18:24)
[2019-10-24] MEDS ORDERED: MIDAZOLAM HCL/PF 2 MG/2 ML VIAL. ONE (15:22)
[2019-10-24] MEDS ORDERED: VANCOMYCIN 1 GM VIAL. ONE ×4 (15:30)
[2019-10-24] MEDS ORDERED: hydrALAZINE 20 MG/ML VIAL. ONE (16:42)
[2019-10-24] MEDS ORDERED: ESMOLOL 100 MG/10 ML VIAL. IVP ONE (17:13)
--- NOTE | 2019-10-24 17:22 | PDOC ---
PROGRESS NOTES Date of Service: DATE: 10/24/19 TIME: 17:21 Chief Complaint Chief Complaint acute on ongoing knee pain, knee infection sepsis right knee joint infection s/p replacement, with spacer, I obesity, BMI 38 , with mild malnutrition due to acute illness, htn depression History of Present Illness History of Present Illness cont abx, ID consulted surg today she feels a little better, has a high req. for pain meds Vitals Vitals Vital Signs Date Time Temp Pulse Resp B/P (MAP) Pulse Ox O2 Delivery O2 Flow Rate FiO2 10/24/19 12:50 97.3 70 16 151/80 100 Nasal Cannula 2 97.3 Physical Exam Physical Exam GENERAL: Alert, oriented x 3 female, slightly anxious, lying comfortably in bed, in no acute distress. HEENT: Normocephalic, atraumatic. Anicteric. No thrush. Oral mucosa moist. NECK: Supple, no JVD, no thyromegaly. LUNGS: Clear bilaterally. No wheezing. HEART: S1, S2. No gallops or murmurs. ABDOMEN: Soft, obese. Bowel sounds present, nontender, nondistended. EXTREMITIES: Right knee swelling present. Dressing in place, Intact ,edema over right lower ext, NEUROLOGIC: Alert and oriented x 3, grossly nonfocal. PSYCHIATRIC: Cooperative, appropriate mood and affect. PIV looks okay. Slightly anxious, but cooperative and calm. DERMATOLOGIC: Warm, dry. No generalized rash. PIV looks clean General: Alert, Cooperative, moderate distress Lungs: Clear Abdomen: Soft Extremities: No cyanosis, Other Skin: Other (irritation and drainage at knee) Labs LABS Laboratory Tests Test 10/24/19 03:25 10/24/19 10:18 Creatine Kinase 26 U/L (26-192) SARS-CoV-2 Antigen (Rapid) Negative (NEGATIVE) Assessment and Plan Assessmemt and Plan Problems Medical Problems: (1) Fever Status: Acute (2) Hypokalemia Status: Acute (3) Right knee pain Status: Acute (4) Sepsis Status: Acute Comment Review of Relevant I have reviewed the following items dieter (where applicable) has been applied. Labs Laboratory Tests Test 10/22/19 18:15 10/22/19 18:42 10/22/19 18:55 10/23/19 03:55 White Blood Count 17.4 x10^3/uL (4.0-11.0) Red Blood Count 4.67 x10^6/uL (3.50-5.40) Hemoglobin 12.1 g/dL (12.0-15.5) Hematocrit 37.2 % (36.0-47.0) Mean Corpuscular Volume 80 fL (79-100) Mean Corpuscular Hemoglobin 26 pg (25-35) Mean Corpuscular Hemoglobin Concent 33 g/dL (31-37) Red Cell Distribution Width 15.3 % (11.5-14.5) Platelet Count 407 x10^3/uL (140-400) Neutrophils (%) (Auto) 93 % (31-73) Lymphocytes (%) (Auto) 2 % (24-48) Monocytes (%) (Auto) 4 % (0-9) Eosinophils (%) (Auto) 0 % (0-3) Basophils (%) (Auto) 0 % (0-3) Neutrophils # (Auto) 16.2 x10^3/uL (1.8-7.7) Lymphocytes # (Auto) 0.3 x10^3/uL (1.0-4.8) Monocytes # (Auto) 0.8 x10^3/uL (0.0-1.1) Eosinophils # (Auto) 0.1 x10^3/uL (0.0-0.7) Basophils # (Auto) 0.1 x10^3/uL (0.0-0.2) Segmented Neutrophils % 95 % (35-66) Lymphocytes % 4 % (24-48) Monocytes % 1 % (0-10) Platelet Estimate Adequate (ADEQUATE) Prothrombin Time 14.4 SEC (11.7-14.0) Prothromb Time International Ratio 1.2 (0.8-1.1) Sodium Level 133 mmol/L (136-145) 136 mmol/L (136-145) Potassium Level 2.8 mmol/L (3.5-5.1) 3.6 mmol/L (3.5-5.1) Chloride Level 93 mmol/L (98-107) 100 mmol/L (98-107) Carbon Dioxide Level 32 mmol/L (21-32) 30 mmol/L (21-32) Anion Gap 8 (6-14) 6 (6-14) Blood Urea Nitrogen 12 mg/dL (7-20) 12 mg/dL (7-20) Creatinine 1.0 mg/dL (0.6-1.0) 1.0 mg/dL (0.6-1.0) Estimated GFR (Cockcroft-Gault) 54.8 54.8 BUN/Creatinine Ratio 12 (6-20) Glucose Level 158 mg/dL (70-99) 179 mg/dL (70-99) Lactic Acid Level 2.0 mmol/L (0.4-2.0) Calcium Level 9.7 mg/dL (8.5-10.1) 8.6 mg/dL (8.5-10.1) Total Bilirubin 0.8 mg/dL (0.2-1.0) Aspartate Amino Transf (AST/SGOT) 12 U/L (15-37) Alanine Aminotransferase (ALT/SGPT) 21 U/L (14-59) Alkaline Phosphatase 91 U/L (46-116) Troponin I Quantitative < 0.017 ng/mL (0.000-0.055) Total Protein 6.3 g/dL (6.4-8.2) Albumin 3.0 g/dL (3.4-5.0) Albumin/Globulin Ratio 0.9 (1.0-1.7) Coronavirus (PCR) Not detected (Not Detected) Urine Collection Type Unknown Urine Color Yellow Urine Clarity Clear Urine pH 6.0 (<5.0-8.0) Urine Specific [place] 1.015 (1.000-1.030) Urine Protein Negative mg/dL (NEG-TRACE) Urine Glucose (UA) Negative mg/dL (NEG) Urine Ketones (Stick) Negative mg/dL (NEG) Urine Blood Negative (NEG) Urine Nitrite Negative (NEG) Urine Bilirubin Negative (NEG) Urine Urobilinogen Dipstick 0.2 mg/dL (0.2 mg/dL) Urine Leukocyte Esterase Negative (NEG) Urine RBC Rare /HPF (0-2) Urine WBC Rare /HPF (0-4) Urine Squamous Epithelial Cells None /LPF Urine Bacteria 0 /HPF (0-FEW) C-Reactive Protein, Quantitative 305.1 mg/L (0-3.3) Test 10/23/19 04:30 10/24/19 03:25 10/24/19 10:18 White Blood Count 17.8 x10^3/uL (4.0-11.0) Red Blood Count 4.26 x10^6/uL (3.50-5.40) Hemoglobin 11.1 g/dL (12.0-15.5) Hematocrit 34.3 % (36.0-47.0) Mean Corpuscular Volume 81 fL (79-100) Mean Corpuscular Hemoglobin 26 pg (25-35) Mean Corpuscular Hemoglobin Concent 32 g/dL (31-37) Red Cell Distribution Width 14.7 % (11.5-14.5) Platelet Count 341 x10^3/uL (140-400) Neutrophils (%) (Auto) 92 % (31-73) Lymphocytes (%) (Auto) 2 % (24-48) Monocytes (%) (Auto) 5 % (0-9) Eosinophils (%) (Auto) 1 % (0-3) Basophils (%) (Auto) 0 % (0-3) Neutrophils # (Auto) 16.4 x10^3/uL (1.8-7.7) Lymphocytes # (Auto) 0.4 x10^3/uL (1.0-4.8) Monocytes # (Auto) 0.9 x10^3/uL (0.0-1.1) Eosinophils # (Auto) 0.1 x10^3/uL (0.0-0.7) Basophils # (Auto) 0.1 x10^3/uL (0.0-0.2) Creatine Kinase 26 U/L (26-192) SARS-CoV-2 Antigen (Rapid) Negative (NEGATIVE) Laboratory Tests Test 10/24/19 03:25 10/24/19 10:18 Creatine Kinase 26 U/L (26-192) SARS-CoV-2 Antigen (Rapid) Negative (NEGATIVE) Microbiology 10/22/19 Blood Culture - Preliminary, Resulted Medications Current Medications Sodium Chloride 1,000 ml @ 1,000 mls/hr 1X ONCE IV Last administered on 10/22/19at 18:59; Start 10/22/19 at 18:45; Stop 10/22/19 at 19:44; Status DC Hydromorphone HCl (Dilaudid) 1 mg 1X ONCE IV Last administered on 10/22/19at 18:57; Start 10/22/19 at 18:45; Stop 10/22/19 at 18:49; Status DC Acetaminophen (Tylenol) 650 mg 1X ONCE PO Last administered on 10/22/19at 18:56; Start 10/22/19 at 18:45; Stop 10/22/19 at 18:49; Status DC Potassium Chloride (Klor-Con) 60 meq 1X ONCE PO Last administered on 10/22/19at 20:06; Start 10/22/19 at 19:45; Stop 10/22/19 at 19:46; Status DC Potassium Chloride/Water 100 ml @ 100 mls/hr Q1H IV Last administered on 10/23/19at 00:53; Start 10/22/19 at 19:50; Stop 10/22/19 at 23:49; Status DC Daptomycin 480 mg/ Sodium Chloride 50 ml @ 100 mls/hr Q24H IV Last administered on 10/23/19at 21:42; Start 10/22/19 at 20:30 Piperacillin Sod/ Tazobactam Sod 3.375 gm/Sodium Chloride 50 ml @ 100 mls/hr 1X ONCE IV Last administered on 10/22/19at 20:06; Start 10/22/19 at 20:00; Stop 10/22/19 at 20:29; Status DC Sodium Chloride (Normal Saline Flush) 3 ml QSHIFT PRN IV AFTER MEDS AND BLOOD DRAWS; Start 10/22/19 at 21:15 Sodium Chloride 1,000 ml @ 70 mls/hr [id number] IV Last administered on 10/23/19at 22:23; Start 10/22/19 at 21:30 Ondansetron HCl (Zofran) 4 mg PRN Q4HRS PRN IV NAUSEA/VOMITING; Start 10/22/19 at 21:15 Acetaminophen (Tylenol) 650 mg PRN Q4HRS PRN PO TEMP OVER 100.4F OR MILD PAIN; Start 10/22/19 at 21:15 Clonidine HCl (Catapres) 0.1 mg PRN Q6HRS PRN PO SBP>160 OR DBP>90; Start 10/22/19 at 21:15 Docusate Sodium (Colace) 100 mg PRN BID PRN PO HARD STOOLS; Start 10/22/19 at 21:15 Albuterol Sulfate (Ventolin Neb Soln) 2.5 mg PRN Q4HRS PRN NEB SHORTNESS OF BREATH; Start 10/22/19 at 21:15 Guaifenesin (Robitussin) 200 mg PRN Q4HRS PRN PO COUGH; Start 10/22/19 at 21:15 Hydromorphone HCl (Dilaudid) 0.5 mg PRN Q2HRS PRN IV MODERATE PAIN Last administered on 10/22/19at 23:49; Start 10/22/19 at 21:15; Stop 10/23/19 at 15:11; Status DC Enoxaparin Sodium (Lovenox 40mg Syringe) 40 mg Q24H SQ Last administered on 10/23/19at 22:24; Start 10/22/19 at 22:00 Potassium Chloride (Klor-Con) 40 meq 1X ONCE PO ; Start 10/22/19 at 21:30; Stop 10/22/19 at 21:40; Status DC Potassium Chloride (Klor-Con) 20 meq 1X ONCE PO ; Start 10/22/19 at 21:30; Stop 10/22/19 at 21:40; Status DC Potassium Chloride (Klor-Con) 20 meq DAILYWBKFT PO Last administered on 10/23/19at 07:53; Start 10/23/19 at 08:00; Stop 10/23/19 at 15:09; Status DC Hydromorphone HCl (Dilaudid) 1 mg PRN Q4HRS PRN IV SEVERE PAIN Last administered on 10/24/19at 08:09; Start 10/22/19 at 21:15 Piperacillin Sod/ Tazobactam Sod 3.375 gm/Sodium Chloride 50 ml @ 100 mls/hr Q6HRS IV Last administered on 10/24/19at 15:39; Start 10/23/19 at 00:00 Carvedilol (Coreg) 6.25 mg BIDWMEALS PO Last administered on 10/24/19at 08:09; Start 10/23/19 at 17:00 EZETIMIBE (Zetia) 10 mg DAILY PO Last administered on 10/24/19at 08:07; Start 10/23/19 at 15:00 Potassium Chloride (Klor-Con) 10 meq DAILYWBKFT PO ; Start 10/24/19 at 09:00 Non-Formulary Medication (Daptomycin ) 460 mg DAILY IV ; Start 10/24/19 at 09:00; Status UNV Duloxetine HCl (Cymbalta) 60 mg BID PO Last administered on 10/24/19at 08:07; Start 10/23/19 at 21:00 Citalopram Hydrobromide (CeleXA) 40 mg DAILY PO Last administered on 10/24/19at 08:07; Start 10/24/19 at 09:00 Non-Formulary Medication (Hydromorphone Hcl (Dilaudid)) 1 tab PRN Q4HRS PRN PO pain; Start 10/23/19 at 13:45; Status UNV Pantoprazole Sodium (Protonix) 40 mg QHS PO Last administered on 10/23/19at 20:25; Start 10/23/19 at 21:00 Triamterene/HCTZ (Maxzide 37.5/ 25mg) 2 tab DAILY PO ; Start 10/24/19 at 09:00 Multivitamins (Thera M Plus) 1 tab DAILY PO ; Start 10/24/19 at 09:00 Ascorbic Acid (Vitamin C) 500 mg DAILY PO ; Start 10/24/19 at 09:00 Hydromorphone HCl (Dilaudid) 4 mg PRN Q4HRS PRN PO MODERATE PAIN Last administered on 10/23/19at 20:25; Start 10/23/19 at 15:15 Lactobacillus Rhamnosus (Culturelle) 1 cap BID PO Last administered on 10/23/19at 20:24; Start 10/23/19 at 21:00 Hydromorphone HCl (Dilaudid) 8 mg PRN Q4HRS PRN PO SEVERE PAIN Last administered on 10/24/19at 08:08; Start 10/23/19 at 21:45 Lorazepam (Ativan Inj) 1 mg 1X ONCE IVP Last administered on 10/24/19at 11:25; Start 10/24/19 at 11:30; Stop 10/24/19 at 11:31; Status DC Sevoflurane (Ultane) 60 ml STK-MED ONCE IH ; Start 10/24/19 at 13:45; Stop 10/24/19 at 13:45; Status DC Propofol (Diprivan) 200 mg STK-MED ONCE IV ; Start 10/24/19 at 13:45; Stop 10/24/19 at 13:45; Status DC Ondansetron HCl (Zofran) 4 mg STK-MED ONCE .ROUTE ; Start 10/24/19 at 13:45; Stop 10/24/19 at 13:45; Status DC Dexamethasone Sodium Phosphate (Decadron) 4 mg STK-MED ONCE .ROUTE ; Start 10/24/19 at 13:45; Stop 10/24/19 at 13:46; Status DC Fentanyl Citrate (Fentanyl 2ml Vial) 100 mcg STK-MED ONCE .ROUTE ; Start 10/24/19 at 15:04; Stop 10/24/19 at 15:04; Status DC Midazolam HCl (Versed) 2 mg STK-MED ONCE .ROUTE ; Start 10/24/19 at 15:22; Stop 10/24/19 at 15:23; Status DC Vancomycin HCl (Vancomycin) 1 gm STK-MED ONCE .ROUTE Last administered on 10/24/19at 16:26; Start 10/24/19 at 15:30; Stop 10/24/19 at 15:30; Status DC Vancomycin HCl (Vancomycin) 1 gm STK-MED ONCE .ROUTE Last administered on 10/24/19at 16:26; Start 10/24/19 at 15:30; Stop 10/24/19 at 15:31; Status DC Vancomycin HCl (Vancomycin) 1 gm STK-MED ONCE .ROUTE Last administered on 10/24/19at 16:26; Start 10/24/19 at 15:30; Stop 10/24/19 at 15:31; Status DC Vancomycin HCl (Vancomycin) 1 gm STK-MED ONCE .ROUTE Last administered on 10/24/19at 16:26; Start 10/24/19 at 15:30; Stop 10/24/19 at 15:31; Status DC Hydralazine HCl (Apresoline Inj) 20 mg STK-MED ONCE .ROUTE ; Start 10/24/19 at 16:42; Stop 10/24/19 at 16:43; Status DC Fentanyl Citrate (Fentanyl 2ml Vial) 100 mcg STK-MED ONCE .ROUTE ; Start 10/24/19 at 16:44; Stop 10/24/19 at 16:44; Status DC Esmolol HCl (Brevibloc) 100 mg STK-MED ONCE IVP ; Start 10/24/19 at 17:13; Stop 10/24/19 at 17:13; Status DC Active Scripts Active Daptomycin 350 Mg Vial 460 Mg IV DAILY 30 Days Merrem (Meropenem) 500 Mg Vial 500 Mg IV Q6HRS 20 Days Dilaudid (Hydromorphone Hcl) 8 Mg Tablet 1 Tab PO PRN Q4HRS PRN MDD 6 Tablet(s) 14 Days Reported Maxzide 75 Mg-50 Mg Tablet (Triamterene/Hydrochlorothiazid) 1 Each Tablet 1 Tab PO DAILY Protonix (Pantoprazole Sodium) 20 Mg Tablet.dr 20 Mg PO HS Coreg (Carvedilol) 6.25 Mg Tablet 1 Tab PO BID Potassium Chloride (Potassium Chloride) 10 Meq Capsule.er 10 Meq PO UD Zetia (Ezetimibe) 10 Mg Tablet 1 Tab PO DAILY AM Vitamin D2 (Ergocalciferol (Vitamin D2)) 50,000 Unit Capsule 50,000 Unit PO QSU Lexapro (Escitalopram Oxalate) 20 Mg Tablet 40 Mg PO DAILY Cymbalta (Duloxetine Hcl) 60 Mg Capsule.dr 60 Mg PO BID Vitals/I & O Vital Sign - Last 24 Hours 10/23/19 10/23/19 10/23/19 10/23/19 17:46 19:51 20:00 23:30 Temp 99.0 98.9 99.0 98.9 Pulse 85 79 81 Resp 20 20 B/P (MAP) 122/59 124/58 (80) 131/67 (88) Pulse Ox 100 98 O2 Delivery Nasal Cannula Room Air Nasal Cannula O2 Flow Rate 2.0 2.0 10/24/19 10/24/19 10/24/19 10/24/19 03:30 03:51 04:00 07:00 Temp 97.9 97.5 97.9 97.5 Pulse 71 80 Resp 20 16 18 18 B/P (MAP) 122/60 (80) 114/55 (74) Pulse Ox 98 99 99 99 O2 Delivery Room Air Nasal Cannula Room Air Room Air O2 Flow Rate 2.0 1.0 10/24/19 10/24/19 10/24/19 10/24/19 08:05 08:09 10:38 12:50 Temp 97.6 97.3 97.6 97.3 Pulse 80 75 70 Resp 18 16 B/P (MAP) 109/55 (73) 151/80 Pulse Ox 94 100 O2 Delivery Room Air Nasal Cannula Nasal Cannula O2 Flow Rate 2.0 2 Intake and Output 10/23/19 10/23/19 10/24/19 15:00 23:00 07:00 Intake Total 220 ml 200 ml 200 ml Output Total 400 ml 800 ml Balance -180 ml 200 ml -600 ml Justicifation of Admission Dx: Justifications for Admission: Justification of Admission Dx: Yes Sepsis: Infection DEIRDRE AVILA MD Oct 24, 2019 17:22
--- NOTE | 2019-10-24 17:59 | PDOC4 ---
Operative Note Operative Note Date of surgery: 10/24/2019 Preoperative diagnosis: Drainage of right knee, status post rigid antibiotic spacer placement Postoperative diagnosis: Same with superficial cloudy drainage, no gross evidence of deep infection or osteomyelitis, deep cultures taken intraoperatively Operative procedure: Irrigation debridement of right knee with removal existing antibiotic spacer extensive debridement and fashioning of rigid antibiotic spacer and placement Surgeon: Jono Hydraulic Controls Technician: Cheikh Hawkins nurse practitioner, Buddy De La Garza title i instructional assistant Anesthesia: General Estimated blood loss: 125 cc Complications: None Intraoperative cultures: Deep tissue cultures sent from both femoral and tibial canal for aerobic anaerobic Gram stain Operative indications: Please see my dictated orthopedic consultation note for a comprehensive summary of her history to date, note that she was actually seen as planned by Dr. Hernandez at [facility] on 12/13/2019 and knee was aspirated at that time and any plans for knee fusion held off due to knee drainage and she has gotten no were to date back on those cultures that were obtained. She was sent home at that time with no antibiotic and developed increasing pain and swel ling in her leg and due to inability to transfer was admitted at [place] and evaluated by me yesterday. Clinically there was concern for infection and sepsis and she was placed on IV antibiotics and we talked through treatment options and really the necessity of debriding the knee removal of the existing spacer placing a new one to continue the potential plan for salvage and knee fusion if it is to be at all feasible. She wishes to proceed with the irrigation debridement spacer route for ongoing potential plans for a knee fusion planned at [facility] pending her response. We did cover the possibility of ongoing infection that would preclude potential fusion and potentially require an amputation, and option that she had discussed with Dr. Hernandez also. Since they had no immediate availability for this procedure I discussed with Min the recommendation that she needed this procedure promptly. She certainly agrees and wishes to proceed with surgical evaluation and treatment as above Operative text: Patient was identified procedure verified patient placed in the supine position on the operating table. After adequate amounts of general anesthesia were administered the right lower extremity was prepped and draped in the standard sterile fashion with a thigh tourniquet and after timeout was performed patient procedure identified and verified a midline incision was made and dissection carried out to the joint capsule along the previous incision incorporating the draining areas. Tourniquet was then inflated without any exsanguination or elevation to 300 mm or mercury, bleeding points controlled by electrocautery and tissue planes were developed for later closure. She was noted to have some movement of the previously rigid spacer particularly at the femoral interface. The antibiotic laden cement was partially cracked and she had a nondisplaced fracture of the lateral femoral condyle that was remaining. The spacer was removed piecemeal and all of the pieces along with the supporting wire were removed from femoral and tibial canal. Deep tissue was obtained for cultures at this time from both the femoral and tibial canal adjacent to the bone. Extensive debridement was carried out of the bony surfaces in both canals. Thorough irrigation was carried out with bactisure a total of 1 L followed by 3 L of normal saline solution. After thorough debridement and removal of any devitalized tissue the draining areas from skin were previously excised. A rigid antibiotic spacer was fashioned from a [employer] intramedullary nail guidewire which was cut to an appropriate length where it would penetrate into the femoral and tibial canals and bent for additional reinforcement at the joint area. A total of 4 batches of polymethylmethacrylate cement were combined with 1 g vancomycin each and mixed without vacuum. The cement was loosely packed around the reinforcing guidewires and placed into the femoral and tibial canals respectively and with the leg held in about 5 degrees flexion and some traction to hold out to length, the remaining cement was formed around a coil of 18-gauge wire for reinforcement and obtain good rigid fixation once cement was dry. Additional thorough irrigation was carried out and capsule was closed as much as possible with running #1 strata fix PDS suture from superior and inferior. Due to the previous removal of the extensor mechanism watertight closure was not possible of the capsule area itself. Skin closure was accomplished with #2 nylon in a tension relieving near far far near fashion and additional closure with 2-0 nylon in a vertical mattress fashion. Sterile dressings were applied. Toes were noted to be warm and pink following deflation of the tourniquet patient was returned to recovery room in stable condition having tolerated the procedure well. Cheikh Hawkins was present for the procedure assisting in the prepping draping retraction and wound closure and Buddy De La Garza title i instructional assistant assisted in the later portions of the procedure including closure and dressings. LESLIE PEREZ MD Oct 24, 2019 17:59
[2019-10-24] MEDS ORDERED: IV RINGERS,LACTATED 1000ML 1,000 ML IV SCH (18:25)
[2019-10-24] MEDS ORDERED: MORPHINE SULFATE 2 MG/ML VIAL. IV PRN (18:30)
[2019-10-24] MEDS ORDERED: HYDROmorphone 2 MG/ML VIAL IV PRN (18:30)
[2019-10-24] MEDS ORDERED: PROCHLORPERAZINE 10 MG/2 ML VIAL. IV PRN (18:30)
[2019-10-24] MEDS ORDERED: fentaNYL PF VIAL 100 MCG/2 ML VIAL IV PRN ×2 (18:30)
[2019-10-24] MEDS: IV NORMAL SALINE 1000ML BAG 1,000 ML IV SCH (18:36)
--- NOTE | 2019-10-24 18:49 | NUR ---
Patient received to room 517. Patient very drowsy, snoring respirations. Oxygen at 2L/nc at this time. IVF, NS infusing at 70ml/hr per IV pump. No family with patient at this time. Patient belongings at bedside.
[2019-10-24] MEDS: PANTOPRAZOLE 40 MG TABLET.DR. PO SCH (21:00)
[2019-10-24] MEDS: ENOXAPARIN 40 MG/0.4 ML SYRINGE. SQ SCH (23:11)
--- NOTE | 2019-10-24 23:19 | NUR ---
PATIENT IS VERY SLEEPY WOULD ONLY WAKE UP ENOUGH TO SAY "OH! OH!'" MY KNEE! IT'S A 10! IT'S A 10!" THEN SNORES LOUDLY, UNABLE TO WAKE UP ENOUGH TO SWALLOW ICE CHIPS, P.O. MEDICATIONS RETURNED BACK TO [facility] AT THIS TIME, ONLY INJECTIONS AND IV MEDICATIONS ADMINISTERED.
[2019-10-24] MEDS: DAPTOmycin (GENERIC) IVPB 480 MG in IV NORMAL SALINE 50ML 50 ML IV SCH (23:41)
[2019-10-25 03:00] VITALS: BP 129/65
[2019-10-25] MEDS: IV NORMAL SALINE 1000ML BAG 1,000 ML IV SCH ×2 (05:41→20:51)
[2019-10-25] MEDS: PIPERACILLIN/TAZOBACTAM 3.375 GM in IV NORMAL SALINE 50ML 50 ML IV SCH ×5 (05:41→23:31)
[2019-10-25 07:00] VITALS: BP 133/58
--- NOTE | 2019-10-25 08:57 | PDOC ---
ORTHO PROGRESS NOTES DATE: 10/25/19 TIME: 08:53 Subjective Patient somewhat painful at this time but tolerable. Post-op Day: 1 Procedure Removal of existing antibiotic spacer and fashioning of new rigid spacer. Vitals Vital Signs Date Time Temp Pulse Resp B/P (MAP) Pulse Ox O2 Delivery O2 Flow Rate FiO2 10/25/19 07:00 98.1 83 18 133/58 (83) 100 Nasal Cannula 2.0 98.1 Labs Laboratory Tests Test 10/24/19 03:25 10/24/19 10:18 Creatine Kinase 26 U/L (26-192) SARS-CoV-2 Antigen (Rapid) Negative (NEGATIVE) Laboratory Tests Test 10/24/19 10:18 SARS-CoV-2 Antigen (Rapid) Negative (NEGATIVE) Notes awakened easily and oriented Assessment and Plan POD # 1 S/P R knee removal of existing antibiotic spacer with fashioning of rigid spacer and replacement. motor and sensation intact distally right LE dressing dry and intact NW bearing R EULA REGAN APRN Oct 25, 2019 08:57
[2019-10-25] MEDS: EZETIMIBE 10 MG TABLET. PO SCH (09:14)
[2019-10-25] MEDS: TRIAMTERENE/HCTZ 37.5/25MG TABLET. PO SCH (09:14)
[2019-10-25] MEDS: CARVEDILOL 6.25 MG TABLET. PO SCH ×2 (09:15→17:00)
[2019-10-25] MEDS: ASCORBIC ACID 500 MG TABLET PO SCH (09:15)
[2019-10-25] MEDS: LACTOBACILLUS RHAMNOSUS GG 1 CAPSULE. PO SCH ×2 (09:15→20:51)
[2019-10-25] MEDS: CITALOPRAM 20 MG TABLET. PO SCH (09:15)
[2019-10-25] MEDS: MULTIVITAMIN with MINERAL TABLET. PO SCH (09:15)
[2019-10-25] MEDS: POTASSIUM CHLORIDE 10 MEQ TABLET.ER. PO SCH (09:15)
[2019-10-25] MEDS: DULoxetine HCL 30 MG CAPSULE.DR PO SCH ×2 (09:15→20:52)
--- NOTE | 2019-10-25 09:44 | PDOC ---
Infectious Disease Note Subjective: Subjective Patient feels much better Postop pain is under control Denies fever, nausea, vomiting, shortness of breath, diarrhea, abdominal pain, rash Otherwise as above Vital Signs: Vital Signs Vital Signs Date Time Temp Pulse Resp B/P (MAP) Pulse Ox O2 Delivery O2 Flow Rate FiO2 10/25/19 09:15 83 133/58 10/25/19 07:00 98.1 18 100 Nasal Cannula 2.0 98.1 Physical Exam: PHYSICAL EXAM GENERAL: Alert, oriented x 3 female, slightly anxious, lying comfortably in bed, in no acute distress. HEENT: Normocephalic, atraumatic. Anicteric. No thrush. Oral mucosa moist. NECK: Supple, no JVD, no thyromegaly. LUNGS: Clear bilaterally. No wheezing. HEART: S1, S2. No gallops or murmurs. ABDOMEN: Soft, obese. Bowel sounds present, nontender, nondistended. EXTREMITIES: Right knee dressing in place intact not taken down NEUROLOGIC: Alert and oriented x 3, grossly nonfocal. PSYCHIATRIC: Cooperative, appropriate mood and affect. PIV looks okay. Slightly anxious, but cooperative and calm. DERMATOLOGIC: Warm, dry. No generalized rash. PIV looks clean Medications: Inpatient Meds: Current Medications Medications (Trade) Dose Ordered Sig/Hina Start Time Stop Time Status Last Admin Dose Admin Acetaminophen (Tylenol) 650 mg PRN Q4HRS PRN 10/22/19 21:15 Albuterol Sulfate (Ventolin Neb Soln) 2.5 mg PRN Q4HRS PRN 10/22/19 21:15 Ascorbic Acid (Vitamin C) 500 mg DAILY 10/24/19 09:00 10/25/19 09:15 500 MG Carvedilol (Coreg) 6.25 mg BIDWMEALS 10/23/19 17:00 10/25/19 09:15 6.25 MG Citalopram Hydrobromide (CeleXA) 40 mg DAILY 10/24/19 09:00 10/25/19 09:15 40 MG Clonidine HCl (Catapres) 0.1 mg PRN Q6HRS PRN 10/22/19 21:15 Daptomycin 480 mg/ Sodium Chloride 50 ml @ 100 mls/hr Q24H 10/22/19 20:30 10/24/19 23:41 100 MLS/HR Dexamethasone Sodium Phosphate (Decadron) 4 mg STK-MED ONCE 10/24/19 13:45 10/24/19 13:46 DC Docusate Sodium (Colace) 100 mg PRN BID PRN 10/22/19 21:15 Duloxetine HCl (Cymbalta) 60 mg BID 10/23/19 21:00 10/25/19 09:15 60 MG Enoxaparin Sodium (Lovenox 40mg Syringe) 40 mg Q24H 10/22/19 22:00 10/24/19 23:11 40 MG Esmolol HCl (Brevibloc) 100 mg STK-MED ONCE 10/24/19 17:13 10/24/19 17:13 DC EZETIMIBE (Zetia) 10 mg DAILY 10/23/19 15:00 10/25/19 09:14 10 MG Fentanyl Citrate (Fentanyl 2ml Vial) 50 mcg PRN Q5MIN PRN 10/24/19 18:30 10/25/19 18:29 Guaifenesin (Robitussin) 200 mg PRN Q4HRS PRN 10/22/19 21:15 Hydralazine HCl (Apresoline Inj) 20 mg STK-MED ONCE 10/24/19 16:42 10/24/19 16:43 DC Hydromorphone HCl (Dilaudid) 0.5 mg PRN Q10MIN PRN 10/24/19 18:30 10/25/19 18:29 Lactobacillus Rhamnosus (Culturelle) 1 cap BID 10/23/19 21:00 10/25/19 09:15 1 CAP Lorazepam (Ativan Inj) 1 mg 1X ONCE 10/24/19 11:30 10/24/19 11:31 DC 10/24/19 11:25 1 MG Midazolam HCl (Versed) 2 mg STK-MED ONCE 10/24/19 15:22 10/24/19 15:23 DC Morphine Sulfate (Morphine Sulfate) 1 mg PRN Q10MIN PRN 10/24/19 18:30 10/25/19 18:29 Multivitamins (Thera M Plus) 1 tab DAILY 10/24/19 09:00 10/25/19 09:15 1 TAB Non-Formulary Medication (Daptomycin ) 460 mg DAILY 10/24/19 09:00 UNV Non-Formulary Medication (Hydromorphone Hcl (Dilaudid)) 1 tab PRN Q4HRS PRN 10/23/19 13:45 UNV Ondansetron HCl (Zofran) 4 mg STK-MED ONCE 10/24/19 13:45 10/24/19 13:45 DC Pantoprazole Sodium (Protonix) 40 mg QHS 10/23/19 21:00 10/23/19 20:25 40 MG Piperacillin Sod/ Tazobactam Sod 3.375 gm/Sodium Chloride 50 ml @ 100 mls/hr Q6HRS 10/23/19 00:00 10/25/19 05:41 100 MLS/HR Potassium Chloride/Water 100 ml @ 100 mls/hr Q1H 10/22/19 19:50 10/22/19 23:49 DC 10/23/19 00:53 100 MLS/HR Potassium Chloride (Klor-Con) 10 meq [id number] 10/24/19 09:00 10/25/19 09:15 10 MEQ Prochlorperazine Edisylate (Compazine) 5 mg PACU PRN PRN 10/24/19 18:30 10/25/19 18:29 Propofol (Diprivan) 200 mg STK-MED ONCE 10/24/19 13:45 10/24/19 13:45 DC Ringer's Solution 1,000 ml @ 30 mls/hr Q24H 10/24/19 18:25 10/25/19 06:24 DC 10/24/19 16:00 30 MLS/HR Sevoflurane (Ultane) 60 ml STK-MED ONCE 10/24/19 13:45 10/24/19 13:45 DC Sodium Chloride 1,000 ml @ 70 mls/hr [id number] 10/22/19 21:30 10/25/19 05:41 70 MLS/HR Sodium Chloride (Normal Saline Flush) 3 ml QSHIFT PRN 10/22/19 21:15 Triamterene/HCTZ (Maxzide 37.5/ 25mg) 2 tab DAILY 10/24/19 09:00 10/25/19 09:14 2 TAB Vancomycin HCl (Vancomycin) 1 gm STK-MED ONCE 10/24/19 15:30 10/24/19 15:31 DC 10/24/19 16:26 1 Labs: Lab Laboratory Tests Test 10/24/19 10:18 SARS-CoV-2 Antigen (Rapid) Negative (NEGATIVE) Micro RUN DATE: 10/24/19 [facility] LAB *LIVE* PAGE 1 RUN TIME: 900 Specimen Inquiry PATIENT: GREYSON VELEZ ACCT: [id number] LOC: [address] [place] [address] U: [id number] AGE/SX: 69/F ROOM: 6 RE10/22/[address]: PERRY CHASE MD : [id number] BED: 1 DIS: STATUS: ADM IN TLOC: SPEC #: [id number] BUFFY: 10/22/19 STATUS: RES REQ #: [id number] RECD: 10/22/19-[address]: SANJIV OSBORN MD SOURCE: BLOOD ENTR: 10/23/19-[address]: EMILY BASSETT MD SPDESC: ORDERED: BLD CULT - LC Procedure Result BLOOD CULTURE LC Preliminary Preliminary GRAM POSITIVE COCCI FINAL ID= [STAPHYLOCOCCUS AUREUS] STAPHYLOCOCCUS AUREUS Unless otherwise specified, Testing Performed by: [address] [address] For Inquires, the Physician may contact the Microbiology department at [phone] Objective: Assessment: Very complicated case Fever improving source rt knee infection Rt knee infection with drainage from last surgery with wound vac, antibiotic spacer October 24, 2019 status post I&D with removal of existing antibiotic spacer extensive debridement and fashioning of rigid antibiotic spacer and placement Operative findings same with superficial cloudy drainage, no gross evidence of deep infection or osteomyelitis, deep cultures taken intraoperatively Cultures positive for gram-positive cocci Leukocytosis Staphylococcus aureus bacteremia present on admission 4 out of 4 bottles 10/22/2019 source right knee infection antibiotic spacer status post removal as above H/O RT TKA 08/25/2016 Right knee infection prosthetic joint infection status post explant of hardware August 15, 2019 08/15/2019 status post removal of right knee joint implant and plate and screw hardware with debridement and placement of nonarticulating antibiotic spacer, cultures, status post irrigation and debridement of the right knee with hematoma evacuation and revision of antibiotic spacer.Cultures negative 07/25/2019 status post I and D, right knee with poly exchange and extensive mechanism repair done. 07/25/2019, intraoperative cultures positive for Corynebacterium species, sensitive to meropenem and daptomycin. Treated through September 26, 2019 Continued to have drainage postoperatively with wound VAC since 08/02/2019 through this admission. Status post synovial aspirate at [facility] October 13, 2019 Culture information pending from Multiple prior right knee surgeries, please refer to last note for full details History of renal cancer, status post left nephrectomy with mild renal insufficiency. Diabetes mellitus. Hypertension. Obesity. Gastroesophageal reflux disease. ALLERGIES TO SULFA, CEPHALEXIN, has tolerated amoxicillin. Protein-calorie malnutrition. Generalized debility Plan: Plan of Care Continue daptomycin and Zosyn. Monitor for antimicrobial toxicities. Follow-up repeat blood cultures 10/23 Follow up [facility] final results from 10/22/2019. Synovial aspirate from October 13, 2019 from [facility] orthopedic clinic is still pending at this time Do not place PICC line until repeat blood cultures are negative for at least 48 hours repeat bc in am Monitor labs Follow-up cultures Wound care as directed Discussed with nursing staff. DEEDEE GREEN MD Oct 25, 2019 09:44
--- NOTE | 2019-10-25 10:03 | PDOC ---
PROGRESS NOTES Date of Service: DATE: 10/25/19 TIME: 10:03 Chief Complaint Chief Complaint POD # 1 Irrigation debridement of right knee with removal existing antibiotic spacer extensive debridement and fashioning of rigid antibiotic spacer and placement acute on ongoing knee pain, knee infection sepsis right knee joint infection s/p replacement, with spacer, I obesity, BMI 38 , with mild malnutrition due to acute illness, htn depression d/w rn ID FOLLOWING History of Present Illness History of Present Illness cont abx, ID consulted surg today she feels a little better, has a high req. for pain meds Vitals Vitals Vital Signs Date Time Temp Pulse Resp B/P (MAP) Pulse Ox O2 Delivery O2 Flow Rate FiO2 10/25/19 09:15 83 133/58 10/25/19 07:00 98.1 18 100 Nasal Cannula 2.0 98.1 Physical Exam Physical Exam GENERAL: Alert, oriented x 3 female, slightly anxious, lying comfortably in bed, in no acute distress. HEENT: Normocephalic, atraumatic. Anicteric. No thrush. Oral mucosa moist. NECK: Supple, no JVD, no thyromegaly. LUNGS: Clear bilaterally. No wheezing. HEART: S1, S2. No gallops or murmurs. ABDOMEN: Soft, obese. Bowel sounds present, nontender, nondistended. EXTREMITIES: Right knee swelling present. Dressing in place, Intact ,edema over right lower ext, NEUROLOGIC: Alert and oriented x 3, grossly nonfocal. PSYCHIATRIC: Cooperative, appropriate mood and affect. PIV looks okay. Slightly anxious, but cooperative and calm. DERMATOLOGIC: Warm, dry. No generalized rash. PIV looks clean General: Alert, Oriented X3, Cooperative, moderate distress Lungs: Clear Abdomen: Soft Extremities: No clubbing, No cyanosis, Other Skin: Other (irritation and drainage at knee) Labs LABS Operative Note Date of surgery: 10/24/2019 Preoperative diagnosis: Drainage of right knee, status post rigid antibiotic spacer placement Postoperative diagnosis: Same with superficial cloudy drainage, no gross eviden ce of deep infection or osteomyelitis, deep cultures taken intraoperatively Operative procedure: Irrigation debridement of right knee with removal existing antibiotic spacer extensive debridement and fashioning of rigid antibiotic spacer and placement Surgeon: Jono Battery Charger: Cheikh Hawkins nurse practitioner, Buddy De La Garza operations assistant Anesthesia: General Estimated blood loss: 125 cc Complications: None Intraoperative cultures: Deep tissue cultures sent from both femoral and tibial canal for aerobic anaerobic Gram stain Laboratory Tests Test 10/24/19 10:18 SARS-CoV-2 Antigen (Rapid) Negative (NEGATIVE) Assessment and Plan Assessmemt and Plan Problems Medical Problems: (1) Fever Status: Acute (2) Hypokalemia Status: Acute (3) Right knee pain Status: Acute (4) Sepsis Status: Acute Comment Review of Relevant I have reviewed the following items dieter (where applicable) has been applied. Labs Laboratory Tests Test 10/24/19 03:25 10/24/19 10:18 Creatine Kinase 26 U/L (26-192) SARS-CoV-2 Antigen (Rapid) Negative (NEGATIVE) Laboratory Tests Test 10/24/19 10:18 SARS-CoV-2 Antigen (Rapid) Negative (NEGATIVE) Microbiology 10/24/19 Blood Culture - Preliminary, Resulted NO GROWTH AFTER 1 DAY 10/23/19 Gram Stain - Final, Resulted 10/23/19 Aerobic Culture, Resulted Pending Medications Current Medications Sodium Chloride 1,000 ml @ 1,000 mls/hr 1X ONCE IV Last administered on 10/22/19at 18:59; Start 10/22/19 at 18:45; Stop 10/22/19 at 19:44; Status DC Hydromorphone HCl (Dilaudid) 1 mg 1X ONCE IV Last administered on 10/22/19at 18:57; Start 10/22/19 at 18:45; Stop 10/22/19 at 18:49; Status DC Acetaminophen (Tylenol) 650 mg 1X ONCE PO Last administered on 10/22/19at 18:56; Start 10/22/19 at 18:45; Stop 10/22/19 at 18:49; Status DC Potassium Chloride (Klor-Con) 60 meq 1X ONCE PO Last administered on 10/22/19at 20:06; Start 10/22/19 at 19:45; Stop 10/22/19 at 19:46; Status DC Potassium Chloride/Water 100 ml @ 100 mls/hr Q1H IV Last administered on 10/23/19at 00:53; Start 10/22/19 at 19:50; Stop 10/22/19 at 23:49; Status DC Daptomycin 480 mg/ Sodium Chloride 50 ml @ 100 mls/hr Q24H IV Last administered on 10/24/19at 23:41; Start 10/22/19 at 20:30 Piperacillin Sod/ Tazobactam Sod 3.375 gm/Sodium Chloride 50 ml @ 100 mls/hr 1X ONCE IV Last administered on 10/22/19at 20:06; Start 10/22/19 at 20:00; Stop 10/22/19 at 20:29; Status DC Sodium Chloride (Normal Saline Flush) 3 ml QSHIFT PRN IV AFTER MEDS AND BLOOD DRAWS; Start 10/22/19 at 21:15 Sodium Chloride 1,000 ml @ 70 mls/hr [id number] IV Last administered on 10/25/19at 05:41; Start 10/22/19 at 21:30 Ondansetron HCl (Zofran) 4 mg PRN Q4HRS PRN IV NAUSEA/VOMITING; Start 10/22/19 at 21:15 Acetaminophen (Tylenol) 650 mg PRN Q4HRS PRN PO TEMP OVER 100.4F OR MILD PAIN; Start 10/22/19 at 21:15 Clonidine HCl (Catapres) 0.1 mg PRN Q6HRS PRN PO SBP>160 OR DBP>90; Start 10/22/19 at 21:15 Docusate Sodium (Colace) 100 mg PRN BID PRN PO HARD STOOLS; Start 10/22/19 at 21 :15 Albuterol Sulfate (Ventolin Neb Soln) 2.5 mg PRN Q4HRS PRN NEB SHORTNESS OF BREATH; Start 10/22/19 at 21:15 Guaifenesin (Robitussin) 200 mg PRN Q4HRS PRN PO COUGH; Start 10/22/19 at 21:15 Hydromorphone HCl (Dilaudid) 0.5 mg PRN Q2HRS PRN IV MODERATE PAIN Last administered on 10/22/19at 23:49; Start 10/22/19 at 21:15; Stop 10/23/19 at 15:11; Status DC Enoxaparin Sodium (Lovenox 40mg Syringe) 40 mg Q24H SQ Last administered on 10/24/19at 23:11; Start 10/22/19 at 22:00 Potassium Chloride (Klor-Con) 40 meq 1X ONCE PO ; Start 10/22/19 at 21:30; Stop 10/22/19 at 21:40; Status DC Potassium Chloride (Klor-Con) 20 meq 1X ONCE PO ; Start 10/22/19 at 21:30; Stop 10/22/19 at 21:40; Status DC Potassium Chloride (Klor-Con) 20 meq DAILYWBKFT PO Last administered on 10/22at 07:53; Start 10/23/19 at 08:00; Stop 10/23/19 at 15:09; Status DC Hydromorphone HCl (Dilaudid) 1 mg PRN Q4HRS PRN IV SEVERE PAIN Last administered on 10/24/19at 08:09; Start 10/22/19 at 21:15 Piperacillin Sod/ Tazobactam Sod 3.375 gm/Sodium Chloride 50 ml @ 100 mls/hr Q6HRS IV Last administered on 10/25/19at 05:41; Start 10/23/19 at 00:00 Carvedilol (Coreg) 6.25 mg BIDWMEALS PO Last administered on 10/25/19at 09:15; Start 10/23/19 at 17:00 EZETIMIBE (Zetia) 10 mg DAILY PO Last administered on 10/25/19at 09:14; Start 10/23/19 at 15:00 Potassium Chloride (Klor-Con) 10 meq DAILYWBKFT PO Last administered on 10/25/19at 09:15; Start 10/24/19 at 09:00 Non-Formulary Medication (Daptomycin ) 460 mg DAILY IV ; Start 10/24/19 at 09:00; Status UNV Duloxetine HCl (Cymbalta) 60 mg BID PO Last administered on 10/25/19at 09:15; Start 10/23/19 at 21:00 Citalopram Hydrobromide (CeleXA) 40 mg DAILY PO Last administered on 10/25/19at 09:15; Start 10/24/19 at 09:00 Non-Formulary Medication (Hydromorphone Hcl (Dilaudid)) 1 tab PRN Q4HRS PRN PO pain; Start 10/23/19 at 13:45; Status UNV Pantoprazole Sodium (Protonix) 40 mg QHS PO Last administered on 10/23/19at 20:25; Start 10/23/19 at 21:00 Triamterene/HCTZ (Maxzide 37.5/ 25mg) 2 tab DAILY PO Last administered on 10/25/19at 09:14; Start 10/24/19 at 09:00 Multivitamins (Thera M Plus) 1 tab DAILY PO Last administered on 10/25/19at 09:15; Start 10/24/19 at 09:00 Ascorbic Acid (Vitamin C) 500 mg DAILY PO Last administered on 10/25/19at 09:15; Start 10/24/19 at 09:00 Hydromorphone HCl (Dilaudid) 4 mg PRN Q4HRS PRN PO MODERATE PAIN Last administered on 10/23/19at 20:25; Start 10/23/19 at 15:15 Lactobacillus Rhamnosus (Culturelle) 1 cap BID PO Last administered on 10/25/19at 09:15; Start 10/23/19 at 21:00 Hydromorphone HCl (Dilaudid) 8 mg PRN Q4HRS PRN PO SEVERE PAIN Last administered on 10/24/19at 08:08; Start 10/23/19 at 21:45 Lorazepam (Ativan Inj) 1 mg 1X ONCE IVP Last administered on 10/24/19at 11:25; Start 10/24/19 at 11:30; Stop 10/24/19 at 11:31; Status DC Sevoflurane (Ultane) 60 ml STK-MED ONCE IH ; Start 10/24/19 at 13:45; Stop 10/24/19 at 13:45; Status DC Propofol (Diprivan) 200 mg STK-MED ONCE IV ; Start 10/24/19 at 13:45; Stop 10/24/19 at 13:45; Status DC Ondansetron HCl (Zofran) 4 mg STK-MED ONCE .ROUTE ; Start 10/24/19 at 13:45; Stop 10/24/19 at 13:45; Status DC Dexamethasone Sodium Phosphate (Decadron) 4 mg STK-MED ONCE .ROUTE ; Start at 13:45; Stop 10/24/19 at 13:46; Status DC Fentanyl Citrate (Fentanyl 2ml Vial) 100 mcg STK-MED ONCE .ROUTE ; Start 02/01 at 15:04; Stop 10/24/19 at 15:04; Status DC Midazolam HCl (Versed) 2 mg STK-MED ONCE .ROUTE ; Start 10/24/19 at 15:22; Stop 10/24/19 at 15:23; Status DC Vancomycin HCl (Vancomycin) 1 gm STK-MED ONCE .ROUTE Last administered on 10/24/19at 16:26; Start 10/24/19 at 15:30; Stop 10/24/19 at 15:30; Status DC Vancomycin HCl (Vancomycin) 1 gm STK-MED ONCE .ROUTE Last administered on 10/24/19at 16:26; Start 10/24/19 at 15:30; Stop 10/24/19 at 15:31; Status DC Vancomycin HCl (Vancomycin) 1 gm STK-MED ONCE .ROUTE Last administered on 10/24/19at 16:26; Start 10/24/19 at 15:30; Stop 10/24/19 at 15:31; Status DC Vancomycin HCl (Vancomycin) 1 gm STK-MED ONCE .ROUTE Last administered on 10/24/19at 16:26; Start 10/24/19 at 15:30; Stop 10/24/19 at 15:31; Status DC Hydralazine HCl (Apresoline Inj) 20 mg STK-MED ONCE .ROUTE ; Start 10/24/19 at 16:42; Stop 10/24/19 at 16:43; Status DC Fentanyl Citrate (Fentanyl 2ml Vial) 100 mcg STK-MED ONCE .ROUTE ; Start 10/24/19 at 16:44; Stop 10/24/19 at 16:44; Status DC Esmolol HCl (Brevibloc) 100 mg STK-MED ONCE IVP ; Start 10/24/19 at 17:13; Stop 10/24/19 at 17:13; Status DC Fentanyl Citrate (Fentanyl 2ml Vial) 100 mcg STK-MED ONCE .ROUTE ; Start 10/24/19 at 18:24; Stop 10/24/19 at 18:24; Status DC Fentanyl Citrate (Fentanyl 2ml Vial) 25 mcg PRN Q5MIN PRN IV MILD PAIN 1-3 Last administered on 10/24/19at 18:31; Start 10/24/19 at 18:30; Stop 10/25/19 at 18:29 Fentanyl Citrate (Fentanyl 2ml Vial) 50 mcg PRN Q5MIN PRN IV MODERATE TO SEVERE PAIN; Start 10/24/19 at 18:30; Stop 10/25/19 at 18:29 Morphine Sulfate (Morphine Sulfate) 1 mg PRN Q10MIN PRN IV SEVERE PAIN 7-10; Start 10/24/19 at 18:30; Stop 10/25/19 at 18:29 Ringer's Solution 1,000 ml @ 30 mls/hr Q24H IV Last administered on 10/24/19at 16:00; Start 10/24/19 at 18:25; Stop 10/25/19 at 06:24; Status DC Hydromorphone HCl (Dilaudid) 0.5 mg PRN Q10MIN PRN IV SEV PAIN, Second choice; Start 10/24/19 at 18:30; Stop 10/25/19 at 18:29 Prochlorperazine Edisylate (Compazine) 5 mg PACU PRN PRN IV NAUSEA, MRX1; Start 10/24/19 at 18:30; Stop 10/25/19 at 18:29 Active Scripts Active Daptomycin 350 Mg Vial 460 Mg IV DAILY 30 Days Merrem (Meropenem) 500 Mg Vial 500 Mg IV Q6HRS 20 Days Dilaudid (Hydromorphone Hcl) 8 Mg Tablet 1 Tab PO PRN Q4HRS PRN MDD 6 Tablet(s) 14 Days Reported Maxzide 75 Mg-50 Mg Tablet (Triamterene/Hydrochlorothiazid) 1 Each Tablet 1 Tab PO DAILY Protonix (Pantoprazole Sodium) 20 Mg Tablet. 20 Mg PO HS Coreg (Carvedilol) 6.25 Mg Tablet 1 Tab PO BID Potassium Chloride (Potassium Chloride) 10 Meq Capsule.er 10 Meq PO UD Zetia (Ezetimibe) 10 Mg Tablet 1 Tab PO DAILY AM Vitamin D2 (Ergocalciferol (Vitamin D2)) 50,000 Unit Capsule 50,000 Unit PO QSU Lexapro (Escitalopram Oxalate) 20 Mg Tablet 40 Mg PO DAILY Cymbalta (Duloxetine Hcl) 60 Mg Capsule. 60 Mg PO BID Vitals/I & O Vital Sign - Last 24 Hours 10/24/19 10/24/19 10/24/19 10/24/19 10:38 12:50 17:00 17:40 Temp 97.6 97.3 97.6 97.3 Pulse 75 70 95 Resp 18 16 B/P (MAP) 109/55 (73) 151/80 130/96 Pulse Ox 94 100 O2 Delivery Nasal Cannula Nasal Cannula Mask O2 Flow Rate 2.0 2 10 10/24/19 10/24/19 10/24/19 10/24/19 17:40 17:55 18:10 18:25 Temp 97.5 97.2 97.5 97.2 Pulse 84 93 100 99 Resp 20 B/P (MAP) 113/49 130/44 174/57 145/74 Pulse Ox 98 100 100 95 O2 Delivery Simple Mask Simple Mask Simple Mask Nasal Cannula O2 Flow Rate 10 10 10 2 10/24/19 10/24/19 10/24/19 10/24/19 18:30 18:31 18:49 19:00 Temp 97.5 97.8 97.5 97.8 Pulse 95 96 Resp B/P (MAP) 132/55 (80) 130/66 (87) Pulse Ox 93 97 97 O2 Delivery Nasal Cannula Nasal Cannula Nasal Cannula Nasal Cannula O2 Flow Rate 2 2.0 2.0 2.0 10/24/19 10/24/19 10/24/19 10/24/19 19:01 19:15 19:30 19:45 Pulse 98 94 97 Resp 20 B/P (MAP) 138/66 (90) 140/65 (90) 120/63 (82) Pulse Ox 97 98 97 98 O2 Delivery Nasal Cannula Nasal Cannula Nasal Cannula Nasal Cannula O2 Flow Rate 2.0 2.0 2.0 2.0 10/24/19 10/24/19 10/24/19 10/25/19 20:00 23:00 23:00 03:00 Temp 98.5 97.5 97.6 98.5 97.5 97.6 Pulse 93 96 84 Resp 20 B/P (MAP) 110/59 (76) 123/61 (81) 129/65 (86) Pulse Ox 98 99 97 O2 Delivery Nasal Cannula Room Air Nasal Cannula Nasal Cannula O2 Flow Rate 2.0 2.0 2.0 2.0 10/25/19 10/25/19 07:00 09:15 Temp 98.1 98.1 Pulse 83 83 Resp 18 B/P (MAP) 133/58 (83) 133/58 Pulse Ox 100 O2 Delivery Nasal Cannula O2 Flow Rate 2.0 Intake and Output 10/24/19 10/24/19 10/25/19 15:00 23:00 07:00 Intake Total 1450 ml 200 ml Output Total 200 ml 600 ml Balance 1250 ml -400 ml Justicifation of Admission Dx: Justifications for Admission: Justification of Admission Dx: Yes Sepsis: Infection PERRY CHASE MD Oct 25, 2019 10:03
[2019-10-25 11:13] VITALS: BP 137/56
[2019-10-25] MEDS: HYDROmorphone 4 MG TABLET PO PRN ×3 (13:01→22:19)
[2019-10-25] MEDS: HYDROmorphone 2 MG/ML VIAL IV PRN ×2 (14:38→19:27)
[2019-10-25 15:00] VITALS: BP 115/44
--- NOTE | 2019-10-25 16:03 | NUR ---
MATTHEW spoke with RN and reviewed chart. Spoke with pt who stated she wants to go to SNU at [facility]. SW called [facility] and they have no bed availability until next week. Pt's second choice is [facility]. MATTHEW completed Patient Choice of Vendor form. MATTHEW copied clinicals and gave the packet to assistant media planner Zuri, as she will continue to follow this patient. Spoke with Karen and pt has 49 days left and a co-pay of $171. Pt does have [employer] secondary insurance though. Pt's son Timothy ([phone]) asking for clarification on the 49 days and $171 copay. MATTHEW notified Zuri and requested she follow up with pt and pt's family. No further SW needs from this SW. Addendum: 10/25/19 at 1624 by LIS CASTRO MATTHEW met with pt today to confirm that Zuri will be her assistant media planner. Confirmed again that pt is agreeable to son and spouse knowing information about insurance so they can assist with discharge planning and long-term planning for pt's healthcare needs.
[2019-10-25 19:00] VITALS: BP 110/44
[2019-10-25] MEDS: DAPTOmycin (GENERIC) IVPB 480 MG in IV NORMAL SALINE 50ML 50 ML IV SCH (19:49)
--- NOTE | 2019-10-25 20:50 | PDOC ---
PROGRESS NOTES Date of Service DATE: 10/25/19 TIME: 20:45 Subjective Subjective Problems overnight: Pain is less severe than preoperatively but still significant and requiring IV Dilaudid, worse with movement Objective Vital Signs Vital Signs Date Time Temp Pulse Resp B/P (MAP) Pulse Ox O2 Delivery O2 Flow Rate FiO2 10/25/19 19:55 17 Nasal Cannula 2.0 10/25/19 15:00 98.6 86 115/44 (67) 98 98.6 Physical Exam Right knee wound slight bloody drainage distal neurovascular status intact and unchanged good stability of knee spacer Labs Laboratory Tests Test 10/24/19 03:25 10/24/19 10:18 Creatine Kinase 26 U/L (26-192) SARS-CoV-2 Antigen (Rapid) Negative (NEGATIVE) Assessment Assessment POD#1 revision rigid antibiotic knee spacer right knee Plan Plan of Care I discussed with her at length the intraoperative findings and the typical culture turnaround of several days of the deep cultures that were obtained intraoperatively. While the spacer was loose before, it is now more rigid allowing her to toe-touch weight-bear but she is reluctant to do much with physical therapy because of the severe pain that she had been and and is slowly improving. I went over with her Dr. Moyer's recommendation on the PICC line that she has to have any circulating infection cleared first for a satisfactory amount of time and the amount duration of antibiotics and further treatment would ultimately be directed by Dr. Hernandez but in the interim I am going to order a wound VAC for her to try to avoid any accumulation of fluid to avoid the swelling and pain that she had experienced previously Justicifation of Admission Dx: Justifications for Admission: Justification of Admission Dx: N/A Sepsis: Infection LESLIE PEREZ MD Oct 25, 2019 20:50
[2019-10-25] MEDS: PANTOPRAZOLE 40 MG TABLET.DR. PO SCH (20:51)
[2019-10-25] MEDS: ENOXAPARIN 40 MG/0.4 ML SYRINGE. SQ SCH (20:51)
[2019-10-25] MEDS: ZOLPIDEM 5 MG TABLET. PO PRN (20:52)
[2019-10-25 23:00] VITALS: BP 99/36
[2019-10-26] MEDS: HYDROmorphone 2 MG/ML VIAL IV PRN ×4 (01:23→19:38)
[2019-10-26 03:00] VITALS: BP 132/52
[2019-10-26] MEDS: HYDROmorphone 4 MG TABLET PO PRN ×5 (03:28→21:57)
[2019-10-26] MEDS: PIPERACILLIN/TAZOBACTAM 3.375 GM in IV NORMAL SALINE 50ML 50 ML IV SCH (05:30)
[2019-10-26 07:15] VITALS: BP 133/64
--- NOTE | 2019-10-26 07:25 | NUR ---
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
--- NOTE | 2019-10-26 08:10 | PDOC ---
PROGRESS NOTES Date of Service: DATE: 10/26/19 TIME: 08:10 Chief Complaint Chief Complaint POD # 2 Irrigation debridement of right knee with removal existing antibiotic spacer extensive debridement and fashioning of rigid antibiotic spacer and placement acute on ongoing knee pain, knee infection sepsis right knee joint infection s/p replacement, with spacer, I obesity, BMI 38 , with mild malnutrition due to acute illness, htn depression d/w rn ID FOLLOWING IV DAPTOMYCIN CONT VAC for her to try to avoid any accumulation of fluid to avoid the swelling and pain that she had experienced previously History of Present Illness History of Present Illness cont abx, ID consulted she feels a little better, has a high req. for pain meds Vitals Vitals Vital Signs Date Time Temp Pulse Resp B/P (MAP) Pulse Ox O2 Delivery O2 Flow Rate FiO2 10/26/19 03:00 98.0 86 18 132/52 (78) 99 Nasal Cannula 2.0 98.0 Physical Exam Physical Exam GENERAL: Alert, oriented x 3 female, slightly anxious, lying comfortably in bed, in no acute distress. HEENT: Normocephalic, atraumatic. Anicteric. No thrush. Oral mucosa moist. NECK: Supple, no JVD, no thyromegaly. LUNGS: Clear bilaterally. No wheezing. HEART: S1, S2. No gallops or murmurs. ABDOMEN: Soft, obese. Bowel sounds present, nontender, nondistended. EXTREMITIES: Right knee dressing in place intact not taken down NEUROLOGIC: Alert and oriented x 3, grossly nonfocal. PSYCHIATRIC: Cooperative, appropriate mood and affect. PIV looks okay. Slightly anxious, but cooperative and calm. DERMATOLOGIC: Warm, dry. No generalized rash. PIV looks clean General: Alert, Oriented X3, Cooperative, moderate distress Heart: Regular rate Lungs: Clear Abdomen: Soft Extremities: No clubbing, No cyanosis, Other Skin: Other (irritation and drainage at knee) Assessment and Plan Assessmemt and Plan Problems Medical Problems: (1) Fever Status: Acute (2) Hypokalemia Status: Acute (3) Right knee pain Status: Acute (4) Sepsis Status: Acute Comment Review of Relevant I have reviewed the following items dieter (where applicable) has been applied. Labs Laboratory Tests Test 10/24/19 10:18 SARS-CoV-2 Antigen (Rapid) Negative (NEGATIVE) Microbiology 10/24/19 Blood Culture - Preliminary, Resulted NO GROWTH AFTER 2 DAYS 10/23/19 Gram Stain - Final, Resulted 10/23/19 Aerobic Culture - Preliminary, Resulted Medications Current Medications Sodium Chloride 1,000 ml @ 1,000 mls/hr 1X ONCE IV Last administered on 10/22/19at 18:59; Start 10/22/19 at 18:45; Stop 10/22/19 at 19:44; Status DC Hydromorphone HCl (Dilaudid) 1 mg 1X ONCE IV Last administered on 10/22/19at 18: 57; Start 10/22/19 at 18:45; Stop 10/22/19 at 18:49; Status DC Acetaminophen (Tylenol) 650 mg 1X ONCE PO Last administered on 10/22/19at 18:56; Start 10/22/19 at 18:45; Stop 10/22/19 at 18:49; Status DC Potassium Chloride (Klor-Con) 60 meq 1X ONCE PO Last administered on 10/22/19at 20:06; Start 10/22/19 at 19:45; Stop 10/22/19 at 19:46; Status DC Potassium Chloride/Water 100 ml @ 100 mls/hr Q1H IV Last administered on 10/23/19at 00:53; Start 10/22/19 at 19:50; Stop 10/22/19 at 23:49; Status DC Daptomycin 480 mg/ Sodium Chloride 50 ml @ 100 mls/hr Q24H IV Last administered on 10/25/19at 19:49; Start 10/22/19 at 20:30 Piperacillin Sod/ Tazobactam Sod 3.375 gm/Sodium Chloride 50 ml @ 100 mls/hr 1X ONCE IV Last administered on 10/22/19at 20:06; Start 10/22/19 at 20:00; Stop 10/22/19 at 20:29; Status DC Sodium Chloride (Normal Saline Flush) 3 ml QSHIFT PRN IV AFTER MEDS AND BLOOD DRAWS; Start 10/22/19 at 21:15 Sodium Chloride 1,000 ml @ 70 mls/hr [id number] IV Last administered on 10/25/19at 20:51; Start 10/22/19 at 21:30 Ondansetron HCl (Zofran) 4 mg PRN Q4HRS PRN IV NAUSEA/VOMITING; Start 10/22/19 at 21:15 Acetaminophen (Tylenol) 650 mg PRN Q4HRS PRN PO TEMP OVER 100.4F OR MILD PAIN; Start 10/22/19 at 21:15 Clonidine HCl (Catapres) 0.1 mg PRN Q6HRS PRN PO SBP>160 OR DBP>90; Start 10/22/19 at 21:15 Docusate Sodium (Colace) 100 mg PRN BID PRN PO HARD STOOLS; Start 10/22/19 at 21:15 Albuterol Sulfate (Ventolin Neb Soln) 2.5 mg PRN Q4HRS PRN NEB SHORTNESS OF BREATH; Start 10/22/19 at 21:15 Guaifenesin (Robitussin) 200 mg PRN Q4HRS PRN PO COUGH; Start 10/22/19 at 21:15 Hydromorphone HCl (Dilaudid) 0.5 mg PRN Q2HRS PRN IV MODERATE PAIN Last administered on 10/22/19at 23:49; Start 10/22/19 at 21:15; Stop 10/23/19 at 15:11; Status DC Enoxaparin Sodium (Lovenox 40mg Syringe) 40 mg Q24H SQ Last administered on 10/25/19at 20:51; Start 10/22/19 at 22:00 Potassium Chloride (Klor-Con) 40 meq 1X ONCE PO ; Start 10/22/19 at 21:30; Stop 10/22/19 at 21:40; Status DC Potassium Chloride (Klor-Con) 20 meq 1X ONCE PO ; Start 10/22/19 at 21:30; Stop 10/22/19 at 21:40; Status DC Potassium Chloride (Klor-Con) 20 meq DAILYWBKFT PO Last administered on 10/23/19at 07:53; Start 10/23/19 at 08:00; Stop 10/23/19 at 15:09; Status DC Hydromorphone HCl (Dilaudid) 1 mg PRN Q4HRS PRN IV SEVERE PAIN Last admi nistered on 10/26/19at 01:23; Start 10/22/19 at 21:15 Piperacillin Sod/ Tazobactam Sod 3.375 gm/Sodium Chloride 50 ml @ 100 mls/hr Q6HRS IV Last administered on 10/26/19at 05:30; Start 10/23/19 at 00:00 Carvedilol (Coreg) 6.25 mg BIDWMEALS PO Last administered on 10/25/19 09:15; Start 10/23/19 at 17:00 EZETIMIBE (Zetia) 10 mg DAILY PO Last administered on 10/25/19 09:14; Start 10/23/19 at 15:00 Potassium Chloride (Klor-Con) 10 meq DAILYWBKFT PO Last administered on 10/25/19 09:15; Start 10/24/19 at 09:00 Non-Formulary Medication (Daptomycin ) 460 mg DAILY IV ; Start 10/24/19 at 09:00; Status UNV Duloxetine HCl (Cymbalta) 60 mg BID PO Last administered on 10/25/19 20:52; Start 10/23/19 at 21:00 Citalopram Hydrobromide (CeleXA) 40 mg DAILY PO Last administered on 10/25/19 09:15; Start 10/24/19 at 09:00 Non-Formulary Medication (Hydromorphone Hcl (Dilaudid)) 1 tab PRN Q4HRS PRN PO pain; Start 10/23/19 at 13:45; Status UNV Pantoprazole Sodium (Protonix) 40 mg QHS PO Last administered on 10/25/19 20: 51; Start 10/23/19 at 21:00 Triamterene/HCTZ (Maxzide 37.5/ 25mg) 2 tab DAILY PO Last administered on 10/25/19 09:14; Start 10/24/19 at 09:00 Multivitamins (Thera M Plus) 1 tab DAILY PO Last administered on 10/25/19 09:15; Start 10/24/19 at 09:00 Ascorbic Acid (Vitamin C) 500 mg DAILY PO Last administered on 10/25/19 09:15; Start 10/24/19 at 09:00 Hydromorphone HCl (Dilaudid) 4 mg PRN Q4HRS PRN PO MODERATE PAIN Last administered on 10/23/19 20:25; Start 10/23/19 at 15:15 Lactobacillus Rhamnosus (Culturelle) 1 cap BID PO Last administered on 10/25/19 20:51; Start 10/23/19 at 21:00 Hydromorphone HCl (Dilaudid) 8 mg PRN Q4HRS PRN PO SEVERE PAIN Last administered on 10/26/19at 03:28; Start 10/23/19 at 21:45 Lorazepam (Ativan Inj) 1 mg 1X ONCE IVP Last administered on 10/24/19at 11:25; Start 10/24/19 at 11:30; Stop 10/24/19 at 11:31; Status DC Sevoflurane (Ultane) 60 ml STK-MED ONCE IH ; Start 10/24/19 at 13:45; Stop 10/24/19 at 13:45; Status DC Propofol (Diprivan) 200 mg STK-MED ONCE IV ; Start 10/24/19 at 13:45; Stop 10/24/19 at 13:45; Status DC Ondansetron HCl (Zofran) 4 mg STK-MED ONCE .ROUTE ; Start 10/24/19 at 13:45; S top 10/24/19 at 13:45; Status DC Dexamethasone Sodium Phosphate (Decadron) 4 mg STK-MED ONCE .ROUTE ; Start 10/24/19 at 13:45; Stop 10/24/19 at 13:46; Status DC Fentanyl Citrate (Fentanyl 2ml Vial) 100 mcg STK-MED ONCE .ROUTE ; Start 10/24/19 at 15:04; Stop 10/24/19 at 15:04; Status DC Midazolam HCl (Versed) 2 mg STK-MED ONCE .ROUTE ; Start 10/24/19 at 15:22; Stop 10/24/19 at 15:23; Status DC Vancomycin HCl (Vancomycin) 1 gm STK-MED ONCE .ROUTE Last administered on 10/24/19at 16:26; Start 10/24/19 at 15:30; Stop 10/24/19 at 15:30; Status DC Vancomycin HCl (Vancomycin) 1 gm STK-MED ONCE .ROUTE Last administered on 10/24/19at 16:26; Start 10/24/19 at 15:30; Stop 10/24/19 at 15:31; Status DC Vancomycin HCl (Vancomycin) 1 gm STK-MED ONCE .ROUTE Last administered on 10/24/19at 16:26; Start 10/24/19 at 15:30; Stop 10/24/19 at 15:31; Status DC Vancomycin HCl (Vancomycin) 1 gm STK-MED ONCE .ROUTE Last administered on 10/24/19at 16:26; Start 10/24/19 at 15:30; Stop 10/24/19 at 15:31; Status DC Hydralazine HCl (Apresoline Inj) 20 mg STK-MED ONCE .ROUTE ; Start 10/24/19 at 16:42; Stop 10/24/19 at 16:43; Status DC Fentanyl Citrate (Fentanyl 2ml Vial) 100 mcg STK-MED ONCE .ROUTE ; Start 10/24/19 at 16:44; Stop 10/24/19 at 16:44; Status DC Esmolol HCl (Brevibloc) 100 mg STK-MED ONCE IVP ; Start 10/24/19 at 17:13; Stop 10/24/19 at 17:13; Status DC Fentanyl Citrate (Fentanyl 2ml Vial) 100 mcg STK-MED ONCE .ROUTE ; Start 10/24/19 at 18:24; Stop 10/24/19 at 18:24; Status DC Fentanyl Citrate (Fentanyl 2ml Vial) 25 mcg PRN Q5MIN PRN IV MILD PAIN 1-3 Last administered on 10/24/19at 18:31; Start 10/24/19 at 18:30; Stop 10/25/19 at 18:29; Status DC Fentanyl Citrate (Fentanyl 2ml Vial) 50 mcg PRN Q5MIN PRN IV MODERATE TO SEVERE PAIN; Start 10/24/19 at 18:30; Stop 10/25/19 at 18:29; Status DC Morphine Sulfate (Morphine Sulfate) 1 mg PRN Q10MIN PRN IV SEVERE PAIN 7-10; Start 10/24/19 at 18:30; Stop 10/25/19 at 18:29; Status DC Ringer's Solution 1,000 ml @ 30 mls/hr Q24H IV Last administered on 10/24/19at 16:00; Start 10/24/19 at 18:25; Stop 10/25/19 at 06:24; Status DC Hydromorphone HCl (Dilaudid) 0.5 mg PRN Q10MIN PRN IV SEV PAIN, Second choice; Start 10/24/19 at 18:30; Stop 10/25/19 at 18:29; Status DC Prochlorperazine Edisylate (Compazine) 5 mg PACU PRN PRN IV NAUSEA, MRX1; Start 10/24/19 at 18:30; Stop 10/25/19 at 18:29; Status DC Zolpidem Tartrate (Ambien) 5 mg PRN QHS PRN PO INSOMNIA Last administered on 10/25/19at 20:52; Start 10/25/19 at 20:00 Active Scripts Active Daptomycin 350 Mg Vial 460 Mg IV DAILY 30 Days Merrem (Meropenem) 500 Mg Vial 500 Mg IV Q6HRS 20 Days Dilaudid (Hydromorphone Hcl) 8 Mg Tablet 1 Tab PO PRN Q4HRS PRN MDD 6 Tablet(s) 14 Days Reported Maxzide 75 Mg-50 Mg Tablet (Triamterene/Hydrochlorothiazid) 1 Each Tablet 1 Tab PO DAILY Protonix (Pantoprazole Sodium) 20 Mg Tablet.dr 20 Mg PO HS Coreg (Carvedilol) 6.25 Mg Tablet 1 Tab PO BID Potassium Chloride (Potassium Chloride) 10 Meq Capsule.er 10 Meq PO UD Zetia (Ezetimibe) 10 Mg Tablet 1 Tab PO DAILY AM Vitamin D2 (Ergocalciferol (Vitamin D2)) 50,000 Unit Capsule 50,000 Unit PO QSU Lexapro (Escitalopram Oxalate) 20 Mg Tablet 40 Mg PO DAILY Cymbalta (Duloxetine Hcl) 60 Mg Capsule.dr 60 Mg PO BID Vitals/I & O Vital Sign - Last 24 Hours 10/25/19 10/25/19 10/25/19 10/25/19 09:15 11:13 14:38 15:00 Temp 98.3 98.6 98.3 98.6 Pulse 83 86 86 Resp 18 12 B/P (MAP) 133/58 137/56 (83) 115/44 (67) Pulse Ox 99 98 O2 Delivery Nasal Cannula Room Air Nasal Cannula O2 Flow Rate 2.0 2.0 10/25/19 10/25/19 10/25/19 10/25/19 15:09 19:00 19:00 19:27 Temp 98.3 98.3 Pulse 77 Resp 18 18 B/P (MAP) 110/44 (66) Pulse Ox 96 O2 Delivery Room Air Nasal Cannula Nasal Cannula Nasal Cannula O2 Flow Rate 2.0 2.0 2.0 8/1210/25/19 10/26/19 10/26/19 19:55 23:00 01:23 01:50 Temp 98.1 98.1 Pulse 81 Resp 17 18 16 19 B/P (MAP) 99/36 (57) Pulse Ox 98 O2 Delivery Nasal Cannula Nasal Cannula Nasal Cannula Nasal Cannula O2 Flow Rate 2.0 2.0 2.0 2.0 10/26/19 03:00 Temp 98.0 98.0 Pulse 86 Resp 18 B/P (MAP) 132/52 (78) Pulse Ox 99 O2 Delivery Nasal Cannula O2 Flow Rate 2.0 Intake and Output 10/25/19 10/25/19 10/26/19 15:00 23:00 07:00 Intake Total 310 ml 1500 ml 340 ml Output Total 150 ml Balance 160 ml 1500 ml 340 ml Justicifation of Admission Dx: Justifications for Admission: Justification of Admission Dx: N/A Sepsis: Infection PERRY CHASE MD Oct 26, 2019 08:10
[2019-10-26 08:18] LABS: BASO % 1 % (0-3); EOS # 0.3 x10^3/uL (0.0-0.7); EOS % 4 % (0-3); HEMATOCRIT 25.3 % (36.0-47.0); HEMOGLOBIN 8.3 g/dL (12.0-15.5); LYMPH # 1.2 x10^3/uL (1.0-4.8); LYMPH % 18 % (24-48); MEAN CORPUSCULAR HEMOGLOBIN 27 pg (25-35); MEAN CORPUSCULAR HGB CONC 33 g/dL (31-37); MEAN CORPUSCULAR VOLUME 81 fL (79-100); MONO # 0.5 x10^3/uL (0.0-1.1); MONO % 7 % (0-9); NEUT # 4.8 x10^3/uL (1.8-7.7); NEUT % 70 % (31-73); PLATELET COUNT 321 x10^3/uL (140-400); RED BLOOD COUNT 3.12 x10^6/uL (3.50-5.40); RED CELL DISTRIBUTION WIDTH 15.1 % (11.5-14.5); WHITE BLOOD COUNT 6.9 x10^3/uL (4.0-11.0)
[2019-10-26 08:32] LABS: ALBUMIN 2.1 g/dL (3.4-5.0); ALBUMIN/GLOBULIN RATIO 0.6 (1.0-1.7); CALCIUM 8.6 mg/dL (8.5-10.1); CREATININE 0.8 mg/dL (0.6-1.0); GFR 70.9; TOTAL BILIRUBIN 0.3 mg/dL (0.2-1.0); TOTAL PROTEIN 5.6 g/dL (6.4-8.2)
[2019-10-26] MEDS: DULoxetine HCL 30 MG CAPSULE.DR PO SCH ×2 (08:35→21:07)
[2019-10-26] MEDS: CITALOPRAM 20 MG TABLET. PO SCH (08:35)
[2019-10-26] MEDS: MULTIVITAMIN with MINERAL TABLET. PO SCH (08:35)
[2019-10-26] MEDS: TRIAMTERENE/HCTZ 37.5/25MG TABLET. PO SCH (08:35)
[2019-10-26] MEDS: EZETIMIBE 10 MG TABLET. PO SCH (08:35)
[2019-10-26] MEDS: LACTOBACILLUS RHAMNOSUS GG 1 CAPSULE. PO SCH ×2 (08:35→21:07)
[2019-10-26] MEDS: ASCORBIC ACID 500 MG TABLET PO SCH (08:36)
[2019-10-26] MEDS: CARVEDILOL 6.25 MG TABLET. PO SCH ×2 (08:36→17:54)
[2019-10-26] MEDS: POTASSIUM CHLORIDE 10 MEQ TABLET.ER. PO SCH (08:36)
--- NOTE | 2019-10-26 09:25 | PDOC ---
Infectious Disease Note Subjective: Subjective Patient complains of pain in the right knee Has drainage from right knee incision Denies fever, nausea, vomiting, shortness of breath, diarrhea, abdominal pain, rash Vital Signs: Vital Signs Vital Signs Date Time Temp Pulse Resp B/P (MAP) Pulse Ox O2 Delivery O2 Flow Rate FiO2 10/26/19 08:36 80 133/64 10/26/19 07:15 98.0 16 99 Nasal Cannula 2.0 98.0 Physical Exam: PHYSICAL EXAM GENERAL: Alert, oriented x 3 female, slightly anxious, lying comfortably in bed, in no acute distress. HEENT: Normocephalic, atraumatic. Anicteric. No thrush. Oral mucosa moist. NECK: Supple, no JVD, no thyromegaly. LUNGS: Clear bilaterally. No wheezing. HEART: S1, S2. No gallops or murmurs. ABDOMEN: Soft, obese. Bowel sounds present, nontender, nondistended. EXTREMITIES: Right knee dressing in place intact not taken down NEUROLOGIC: Alert and oriented x 3, grossly nonfocal. PSYCHIATRIC: Cooperative, appropriate mood and affect. PIV looks okay. Slightly anxious, but cooperative and calm. DERMATOLOGIC: Warm, dry. No generalized rash. PIV looks clean Medications: Inpatient Meds: Current Medications Medications (Trade) Dose Ordered Sig/Hina Start Time Stop Time Status Last Admin Dose Admin Acetaminophen (Tylenol) 650 mg PRN Q4HRS PRN 10/22/19 21:15 Albuterol Sulfate (Ventolin Neb Soln) 2.5 mg PRN Q4HRS PRN 10/22/19 21:15 Ascorbic Acid (Vitamin C) 500 mg DAILY 10/24/19 09:00 10/26/19 08:36 500 MG Carvedilol (Coreg) 6.25 mg BIDWMEALS 10/23/19 17:00 10/26/19 08:36 6.25 MG Citalopram Hydrobromide (CeleXA) 40 mg DAILY 10/24/19 09:00 10/26/19 08:35 40 MG Clonidine HCl (Catapres) 0.1 mg PRN Q6HRS PRN 10/22/19 21:15 Daptomycin 480 mg/ Sodium Chloride 50 ml @ 100 mls/hr Q24H 10/22/19 20:30 10/25/19 19:49 100 MLS/HR Dexamethasone Sodium Phosphate (Decadron) 4 mg STK-MED ONCE 10/24/19 13:45 10/24/19 13:46 DC Docusate Sodium (Colace) 100 mg PRN BID PRN 10/22/19 21:15 Duloxetine HCl (Cymbalta) 60 mg BID 10/23/19 21:00 10/26/19 08:35 60 MG Enoxaparin Sodium (Lovenox 40mg Syringe) 40 mg Q24H 10/22/19 22:00 10/25/19 20:51 40 MG Esmolol HCl (Brevibloc) 100 mg STK-MED ONCE 10/24/19 17:13 10/24/19 17:13 DC EZETIMIBE (Zetia) 10 mg DAILY 10/23/19 15:00 10/26/19 08:35 10 MG Fentanyl Citrate (Fentanyl 2ml Vial) 50 mcg PRN Q5MIN PRN 10/24/19 18:30 10/25/19 18:29 DC Guaifenesin (Robitussin) 200 mg PRN Q4HRS PRN 10/22/19 21:15 Hydralazine HCl (Apresoline Inj) 20 mg STK-MED ONCE 10/24/19 16:42 10/24/19 16:43 DC Hydromorphone HCl (Dilaudid) 0.5 mg PRN Q10MIN PRN 10/24/19 18:30 10/25/19 18:29 DC Lactobacillus Rhamnosus (Culturelle) 1 cap BID 10/23/19 21:00 10/26/19 08:35 1 CAP Lorazepam (Ativan Inj) 1 mg 1X ONCE 10/24/19 11:30 10/24/19 11:31 DC 10/24/19 11:25 1 MG Midazolam HCl (Versed) 2 mg STK-MED ONCE 10/24/19 15:22 10/24/19 15:23 DC Morphine Sulfate (Morphine Sulfate) 1 mg PRN Q10MIN PRN 10/24/19 18:30 10/25/19 18:29 DC Multivitamins (Thera M Plus) 1 tab DAILY 10/24/19 09:00 10/26/19 08:35 1 TAB Non-Formulary Medication (Daptomycin ) 460 mg DAILY 10/24/19 09:00 UNV Non-Formulary Medication (Hydromorphone Hcl (Dilaudid)) 1 tab PRN Q4HRS PRN 10/23/19 13:45 UNV Ondansetron HCl (Zofran) 4 mg STK-MED ONCE 10/24/19 13:45 10/24/19 13:45 DC Pantoprazole Sodium (Protonix) 40 mg QHS 10/23/19 21:00 10/25/19 20:51 40 MG Piperacillin Sod/ Tazobactam Sod 3.375 gm/Sodium Chloride 50 ml @ 100 mls/hr Q6HRS 10/23/19 00:00 10/26/19 05:30 100 MLS/HR Potassium Chloride/Water 100 ml @ 100 mls/hr Q1H 10/22/19 19:50 10/22/19 23:49 DC 10/23/19 00:53 100 MLS/HR Potassium Chloride (Klor-Con) 10 meq [id number] 10/24/19 09:00 10/26/19 08:36 10 MEQ Prochlorperazine Edisylate (Compazine) 5 mg PACU PRN PRN 10/24/19 18:30 10/25/19 18:29 DC Propofol (Diprivan) 200 mg STK-MED ONCE 10/24/19 13:45 10/24/19 13:45 DC Ringer's Solution 1,000 ml @ 30 mls/hr Q24H 10/24/19 18:25 10/25/19 06:24 DC 10/24/19 16:00 30 MLS/HR Sevoflurane (Ultane) 60 ml STK-MED ONCE 10/24/19 13:45 10/24/19 13:45 DC Sodium Chloride 1,000 ml @ 70 mls/hr [id number] 10/22/19 21:30 10/25/19 20:51 70 MLS/HR Sodium Chloride (Normal Saline Flush) 3 ml QSHIFT PRN 10/22/19 21:15 Triamterene/HCTZ (Maxzide 37.5/ 25mg) 2 tab DAILY 10/24/19 09:00 10/26/19 08:35 2 TAB Vancomycin HCl (Vancomycin) 1 gm STK-MED ONCE 10/24/19 15:30 10/24/19 15:31 DC 10/24/19 16:26 1 GM Zolpidem Tartrate (Ambien) 5 mg PRN QHS PRN 10/25/19 20:00 10/25/19 20:52 5 MG Labs: Lab Laboratory Tests Test 10/26/19 08:00 White Blood Count 6.9 x10^3/uL (4.0-11.0) Red Blood Count 3.12 x10^6/uL (3.50-5.40) Hemoglobin 8.3 g/dL (12.0-15.5) Hematocrit 25.3 % (36.0-47.0) Mean Corpuscular Volume 81 fL (79-100) Mean Corpuscular Hemoglobin 27 pg (25-35) Mean Corpuscular Hemoglobin Concent 33 g/dL (31-37) Red Cell Distribution Width 15.1 % (11.5-14.5) Platelet Count 321 x10^3/uL (140-400) Neutrophils (%) (Auto) 70 % (31-73) Lymphocytes (%) (Auto) 18 % (24-48) Monocytes (%) (Auto) 7 % (0-9) Eosinophils (%) (Auto) 4 % (0-3) Basophils (%) (Auto) 1 % (0-3) Neutrophils # (Auto) 4.8 x10^3/uL (1.8-7.7) Lymphocytes # (Auto) 1.2 x10^3/uL (1.0-4.8) Monocytes # (Auto) 0.5 x10^3/uL (0.0-1.1) Eosinophils # (Auto) 0.3 x10^3/uL (0.0-0.7) Basophils # (Auto) 0.0 x10^3/uL (0.0-0.2) Sodium Level 140 mmol/L (136-145) Potassium Level 3.0 mmol/L (3.5-5.1) Chloride Level 102 mmol/L (98-107) Carbon Dioxide Level 32 mmol/L (21-32) Anion Gap 6 (6-14) Blood Urea Nitrogen 16 mg/dL (7-20) Creatinine 0.8 mg/dL (0.6-1.0) Estimated GFR (Cockcroft-Gault) 70.9 BUN/Creatinine Ratio 20 (6-20) Glucose Level 109 mg/dL (70-99) Calcium Level 8.6 mg/dL (8.5-10.1) Total Bilirubin 0.3 mg/dL (0.2-1.0) Aspartate Amino Transf (AST/SGOT) 10 U/L (15-37) Alanine Aminotransferase (ALT/SGPT) 24 U/L (14-59) Alkaline Phosphatase 67 U/L (46-116) Total Protein 5.6 g/dL (6.4-8.2) Albumin 2.1 g/dL (3.4-5.0) Albumin/Globulin Ratio 0.6 (1.0-1.7) Micro RUN DATE: 10/26/19 [facility] *LIVE* PAGE 1 RUN TIME: 1123 Specimen Inquiry PATIENT: AGUSTINGREYSON Martínez ACCT: [id number] LOC: [address] [place] [address] U: [id number] AGE/SX: 69/F ROOM: [facility] RE10/22/[address]: PERRY CHASE MD : 1950 BED: 1 DIS: STATUS: ADM IN TLOC: SPEC #: [id number] BUFFY: 10/23/19 STATUS: JOSE R REQ #: [id number] RECD: 10/23/[address] [facility] [address]: SANJIV OSBORN MD SOURCE: KNEE ENTR: 10/22/[address]: EMILY BASSETT MD [facility]: RIGHT ORDERED: AEROBIC CULT GS COMMENTS: RIGHT KNEE Has specimen been collected/obtained? Y Procedure Result GRAM STAIN Final Final GRAM POSITIVE COCCI:MODERATE SQUAMOUS EPI CELL:RARE PMN (WBCs):FEW Unless otherwise specified, Testing Performed by: [address] [address] For Inquires, the Physician may contact the Microbiology department at [phone] AEROBIC CULTURE Final Final MANY GRAM POSITIVE COCCI on 10/25/19 at 1148 FINAL ID= [STAPHYLOCOCCUS AUREUS (MRSA)] FEW GRAM NEGATIVE RODS on 10/25/19 at 1149 FINAL ID= [ACINETOBACTER BAU/NOS GROUP] Testing Performed by: [address] [place] [address] For Inquires, the Physician may contact the Microbiology department at [phone] STAPHYLOCOCCUS AUREUS (MRSA) ACINETOBACTER BAU/NOS GROUP ANTIMICROBIAL SUSCEPTIBILITY Final Comment Comment POS TANYA TYPE 38 STAPHYLOCOCCUS AUREUS (MRSA) ANTIBIOTIC RESULT INTERPRETATION AZITHROMYCIN >4 R CLINDAMYCIN >4 R CEFOXITIN SCREEN >4 POS CIPROFLOXACIN >2 R CEFTAROLINE 1 S CONTINUED ON NEXT PAGE RUN DATE: 10/26/19 [facility] *LIVE* PAGE 2 RUN TIME: 112 Specimen Inquiry SPEC: [id number] PATIENT: AGUSTINGREYSON [id number] (Continued) Procedure Result --------- --- ANTIMICROBIAL SUSCEPTIBILITY Final (continued) DAPTOMYCIN <=0.5 S ERYTHROMYCIN >4 R GENTAMICIN <=4 S LINEZOLID 2 S LEVOFLOXACIN >4 R OXACILLIN >2 R PENICILLIN >2 R* RIFAMPIN <=1 S TRIMETHOPRIM/SULFAMETHOXAZOLE <=0.5/9.5 S TETRACYCLINE <=4 S VANCOMYCIN 1 S NEG TANYA 56 ACINETOBACTER BAU/NOS GROUP ANTIBIOTIC RESULT INTERPRETATION AMPICILLIN/SULBACTAM >16/8 R AMIKACIN >32 R CEFTRIAXONE >32 R CEFTAZIDIME >16 R CEFOTAXIME >32 R CIPROFLOXACIN >2 R CEFEPIME >16 R GENTAMICIN >8 R LEVOFLOXACIN >4 R MINOCYCLINE >8 R MEROPENEM >8 R TRIMETHOPRIM/SULFAMETHOXAZOLE >2/38 R TOBRAMYCIN >8 R Unless otherwise specified, Testing Performed by: [address] [address] For Inquires, the Physician may contact the Microbiology department at [phone] RUN DATE: 10/25/19 [facility] *LIVE* PAGE 1 RUN TIME: 1024 Specimen Inquiry PATIENT: GREYSON VELEZ ACCT: [id number] LOC: [address] [place] [address] U: [id number] AGE/SX: 69/F ROOM: [facility] RE10/22/[address]: PERRY CHASE MD : 1950 BED: 1 DIS: STATUS: ADM IN TLOC: SPEC #: [id number] BFUFY: 10/22/19 STATUS: COMP REQ #: [id number] RECD: 10/22/[address] [facility] [address]: SANJIV OSBORN MD SOURCE: BLOOD ENTR: 10/23/19-[address]: [facility]: BLD CULT - LC - Procedure Result BLOOD CULTURE LC Final Final GRAM POSITIVE COCCI FINAL ID= [STAPHYLOCOCCUS AUREUS (MRSA)] STAPHYLOCOCCUS AUREUS (MRSA) ANTIMICROBIAL SUSCEPTIBILITY Final Comment POS TANYA TYPE 38 STAPHYLOCOCCUS AUREUS (MRSA) ANTIBIOTIC RESULT INTERPRETATION AZITHROMYCIN >4 R CLINDAMYCIN >4 R CEFOXITIN SCREEN >4 POS CIPROFLOXACIN >2 R CEFTAROLINE 1 S DAPTOMYCIN <=0.5 S ERYTHROMYCIN >4 R GENTAMICIN <=4 S LINEZOLID 2 S LEVOFLOXACIN >4 R OXACILLIN >2 R PENICILLIN >2 R* RIFAMPIN <=1 S TRIMETHOPRIM/SULFAMETHOXAZOLE <=0.5/9.5 S TETRACYCLINE <=4 S VANCOMYCIN 1 S Unless otherwise specified, Testing Performed by: [address] [address] For Inquires, the Physician may contact the Microbiology department at [phone] Objective: Assessment: Very complicated case Staphylococcus aureus bacteremia present on admission 4 out of 4 bottles 10/22/2019 source right knee infection s/p I and D and antibiotic spacer status post removal on Oct 24 2019 Rt knee infection with drainage from last surgery with wound vac, antibiotic spacer October 24, 2019 status post I&D with removal of existing antibiotic spacer extensive debridement and fashioning of rigid antibiotic spacer and placement Operative findings same with superficial cloudy drainage, no gross evidence of deep infection or osteomyelitis, deep cultures taken intraoperatively Cultures positive STAPHYLOCOCCUS AUREUS AND XMDROACINETOBACTER BAU/NOS GROUP( R TO MERREM, MINOCYCLINE, Unasyn , Bactrim) Fever improving Leukocytosis H/O RT TKA 08/25/2016 Right knee infection prosthetic joint infection status post explant of hardware August 15, 2019 08/15/2019 status post removal of right knee joint implant and plate and screw hardware with debridement and placement of nonarticulating antibiotic spacer, cultures, status post irrigation and debridement of the right knee with hematoma evacuation and revision of antibiotic spacer.Cultures negative 07/25/2019 status post I and D, right knee with poly exchange and extensive mechanism repair done. 07/25/2019, intraoperative cultures positive for Corynebacterium species, sensitive to meropenem and daptomycin. Treated through September 26, 2019 Continued to have drainage postoperatively with wound VAC since 08/02/2019 through this admission. Status post synovial aspirate at [facility] October 13, 2019 Culture information pending from Multiple prior right knee surgeries, please refer to last note for full details History of renal cancer, status post left nephrectomy with mild renal insufficiency. Diabetes mellitus. Hypertension. Obesity. Gastroesophageal reflux disease. ALLERGIES TO SULFA, CEPHALEXIN, has tolerated amoxicillin. Protein-calorie malnutrition. Generalized debility Plan: Plan of Care We discussed about multidrug-resistant organism infection with MRSA and XMDROAcinetobacter Rt knee infection ,bone tissue cultures Patient has drainage from rt knee postop site and is awaiting wound VAC per team Patient is requesting for proceeding with amputation .... Continue daptomycin DC meropenem,was on zosyn now with susceptibility results start Tigecycline pending further input from lab I called micro lab to send for eravacycline and tigecycline susceptibility for XMDROAcinetobacter Outcome may not be optimal due to 2 multidrug-resistant organism bone infection as above Risk of limb loss remains Monitor for antimicrobial toxicities. Follow-up repeat blood cultures 10/23 BC neg from 10/21 Synovial aspirate from October 13, 2019 from [facility] orthopedic clinic is still pending at this time Do not place PICC line until repeat blood cultures are negative for at least 48 hours repeat bc in am Monitor labs Follow-up cultures Wound care as directed Discussed with Dr. De La Cruz Discussed with nursing staff. DEEDEE GREEN MD Oct 26, 2019 09:25
[2019-10-26] MEDS: IV NORMAL SALINE 1000ML BAG 1,000 ML IV SCH (10:56)
[2019-10-26 11:00] VITALS: BP 118/52
[2019-10-26] MEDS ORDERED: MEROPENEM 500 MG in IV NORMAL SALINE 50ML 50 ML IV SCH (12:00)
[2019-10-26] MEDS ORDERED: TIGECYCLINE 100 MG in IV DEXTROSE 5% 100ML 100 ML IV ONE (12:15)
[2019-10-26 15:00] VITALS: BP 118/51
--- NOTE | 2019-10-26 16:05 | NUR ---
Wound Care Wound Care consult for placement of surgical incision vac. Cleansed area and noted drainage from proximal and distal areas. Contact layer placed over sutures, silver foam used at 125 mmHg continuous pressure. Educated pt to call RN if vac alarms. Educated RN to call Dr if canister fills up in 2 hours or less. Pt educated on PU prevention but she refused to turn at this time.
[2019-10-26 19:00] VITALS: BP 101/41
[2019-10-26] MEDS ORDERED: TIGECYCLINE 50 MG in IV DEXTROSE 5% 50 ML IV SCH (21:00)
[2019-10-26] MEDS: ZOLPIDEM 5 MG TABLET. PO PRN (21:07)
[2019-10-26] MEDS: PANTOPRAZOLE 40 MG TABLET.DR. PO SCH (21:07)
[2019-10-26] MEDS: ENOXAPARIN 40 MG/0.4 ML SYRINGE. SQ SCH (21:08)
[2019-10-26] MEDS: DAPTOmycin (GENERIC) IVPB 480 MG in IV NORMAL SALINE 50ML 50 ML IV SCH (21:08)
[2019-10-26 23:00] VITALS: BP 103/48
[2019-10-27] MEDS: IV NORMAL SALINE 1000ML BAG 1,000 ML IV SCH ×2 (02:07→17:54)
[2019-10-27] MEDS: HYDROmorphone 4 MG TABLET PO PRN ×3 (02:08→21:57)
[2019-10-27 03:14] VITALS: BP 119/54
[2019-10-27] MEDS: HYDROmorphone 2 MG/ML VIAL IV PRN ×2 (03:45→17:54)
[2019-10-27 06:30] LABS: BASO # 0.1 x10^3/uL (0.0-0.2); BASO % 1 % (0-3); EOS # 0.3 x10^3/uL (0.0-0.7); EOS % 4 % (0-3); HEMATOCRIT 27.8 % (36.0-47.0); HEMOGLOBIN 8.9 g/dL (12.0-15.5); LYMPH # 1.3 x10^3/uL (1.0-4.8); LYMPH % 20 % (24-48); MEAN CORPUSCULAR HEMOGLOBIN 26 pg (25-35); MEAN CORPUSCULAR HGB CONC 32 g/dL (31-37); MEAN CORPUSCULAR VOLUME 82 fL (79-100); MONO # 0.4 x10^3/uL (0.0-1.1); MONO % 7 % (0-9); NEUT # 4.3 x10^3/uL (1.8-7.7); NEUT % 68 % (31-73); PLATELET COUNT 347 x10^3/uL (140-400); RED CELL DISTRIBUTION WIDTH 15.1 % (11.5-14.5); WHITE BLOOD COUNT 6.3 x10^3/uL (4.0-11.0)
[2019-10-27 06:52] LABS: ALBUMIN 2.2 g/dL (3.4-5.0); ALBUMIN/GLOBULIN RATIO 0.6 (1.0-1.7); CALCIUM 8.9 mg/dL (8.5-10.1); CREATININE 0.9 mg/dL (0.6-1.0); GFR 61.9; POTASSIUM 3.7 mmol/L (3.5-5.1); TOTAL BILIRUBIN 0.2 mg/dL (0.2-1.0); TOTAL PROTEIN 5.7 g/dL (6.4-8.2)
[2019-10-27 07:15] VITALS: BP 143/52
--- NOTE | 2019-10-27 08:43 | PDOC ---
PROGRESS NOTES Date of Service: DATE: 10/27/19 TIME: 08:43 Chief Complaint Chief Complaint POD # 3 Irrigation debridement of right knee with removal existing antibiotic spacer extensive debridement and fashioning of rigid antibiotic spacer and placement Cultures positive STAPHYLOCOCCUS AUREUS AND XMDROACINETOBACTER BAU/NOS GROUP( R TO MERREM, MINOCYCLINE, Unasyn , Bactrim) acute on ongoing knee pain, knee infection sepsis right knee joint infection s/p replacement, with spacer, I obesity, BMI 38 , severe protein-caloric malnutrition htn depression d/w rn ID FOLLOWING IV DAPTOMYCIN CONT VAC for her to try to avoid any accumulation of fluid to avoid the swelling and pain that she had experienced previously History of Present Illness History of Present Illness cont abx, ID consulted she feels a little better, has a high req. for pain meds Vitals Vitals Vital Signs Date Time Temp Pulse Resp B/P (MAP) Pulse Ox O2 Delivery O2 Flow Rate FiO2 10/27/19 07:15 98.0 76 18 143/52 (82) 98 Nasal Cannula 2.0 98.0 Physical Exam Physical Exam GENERAL: Alert, oriented x 3 female, slightly anxious, lying comfortably in bed, in no acute distress. HEENT: Normocephalic, atraumatic. Anicteric. No thrush. Oral mucosa moist. NECK: Supple, no JVD, no thyromegaly. LUNGS: Clear bilaterally. No wheezing. HEART: S1, S2. No gallops or murmurs. ABDOMEN: Soft, obese. Bowel sounds present, nontender, nondistended. EXTREMITIES: Right knee dressing in place intact not taken down NEUROLOGIC: Alert and oriented x 3, grossly nonfocal. PSYCHIATRIC: Cooperative, appropriate mood and affect. PIV looks okay. Slightly anxious, but cooperative and calm. DERMATOLOGIC: Warm, dry. No generalized rash. PIV looks clean General: Alert, Oriented X3, Cooperative, No acute distress Heart: Regular rate Lungs: Clear Abdomen: Normal bowel sounds, Soft, No tenderness Extremities: No clubbing, No cyanosis, Other Skin: Other (irritation and drainage at knee) Labs LABS Laboratory Tests Test 10/27/19 06:18 White Blood Count 6.3 x10^3/uL (4.0-11.0) Red Blood Count 3.40 x10^6/uL (3.50-5.40) Hemoglobin 8.9 g/dL (12.0-15.5) Hematocrit 27.8 % (36.0-47.0) Mean Corpuscular Volume 82 fL (79-100) Mean Corpuscular Hemoglobin 26 pg (25-35) Mean Corpuscular Hemoglobin Concent 32 g/dL (31-37) Red Cell Distribution Width 15.1 % (11.5-14.5) Platelet Count 347 x10^3/uL (140-400) Neutrophils (%) (Auto) 68 % (31-73) Lymphocytes (%) (Auto) 20 % (24-48) Monocytes (%) (Auto) 7 % (0-9) Eosinophils (%) (Auto) 4 % (0-3) Basophils (%) (Auto) 1 % (0-3) Neutrophils # (Auto) 4.3 x10^3/uL (1.8-7.7) Lymphocytes # (Auto) 1.3 x10^3/uL (1.0-4.8) Monocytes # (Auto) 0.4 x10^3/uL (0.0-1.1) Eosinophils # (Auto) 0.3 x10^3/uL (0.0-0.7) Basophils # (Auto) 0.1 x10^3/uL (0.0-0.2) Sodium Level 138 mmol/L (136-145) Potassium Level 3.7 mmol/L (3.5-5.1) Chloride Level 100 mmol/L (98-107) Carbon Dioxide Level 33 mmol/L (21-32) Anion Gap 5 (6-14) Blood Urea Nitrogen 20 mg/dL (7-20) Creatinine 0.9 mg/dL (0.6-1.0) Estimated GFR (Cockcroft-Gault) 61.9 BUN/Creatinine Ratio 22 (6-20) Glucose Level 109 mg/dL (70-99) Calcium Level 8.9 mg/dL (8.5-10.1) Total Bilirubin 0.2 mg/dL (0.2-1.0) Aspartate Amino Transf (AST/SGOT) 11 U/L (15-37) Alanine Aminotransferase (ALT/SGPT) 24 U/L (14-59) Alkaline Phosphatase 72 U/L (46-116) Creatine Kinase 25 U/L (26-192) Total Protein 5.7 g/dL (6.4-8.2) Albumin 2.2 g/dL (3.4-5.0) Albumin/Globulin Ratio 0.6 (1.0-1.7) Assessment and Plan Assessmemt and Plan Problems Medical Problems: (1) Fever Status: Acute (2) Hypokalemia Status: Acute (3) Right knee pain Status: Acute (4) Sepsis Status: Acute Comment Review of Relevant I have reviewed the following items dieter (where applicable) has been applied. Labs Laboratory Tests Test 10/26/19 08:00 10/27/19 06:18 White Blood Count 6.9 x10^3/uL (4.0-11.0) 6.3 x10^3/uL (4.0-11.0) Red Blood Count 3.12 x10^6/uL (3.50-5.40) 3.40 x10^6/uL (3.50-5.40) Hemoglobin 8.3 g/dL (12.0-15.5) 8.9 g/dL (12.0-15.5) Hematocrit 25.3 % (36.0-47.0) 27.8 % (36.0-47.0) Mean Corpuscular Volume 81 fL (79-100) 82 fL (79-100) Mean Corpuscular Hemoglobin 27 pg (25-35) 26 pg (25-35) Mean Corpuscular Hemoglobin Concent 33 g/dL (31-37) 32 g/dL (31-37) Red Cell Distribution Width 15.1 % (11.5-14.5) 15.1 % (11.5-14.5) Platelet Count 321 x10^3/uL (140-400) 347 x10^3/uL (140-400) Neutrophils (%) (Auto) 70 % (31-73) 68 % (31-73) Lymphocytes (%) (Auto) 18 % (24-48) 20 % (24-48) Monocytes (%) (Auto) 7 % (0-9) 7 % (0-9) Eosinophils (%) (Auto) 4 % (0-3) 4 % (0-3) Basophils (%) (Auto) 1 % (0-3) 1 % (0-3) Neutrophils # (Auto) 4.8 x10^3/uL (1.8-7.7) 4.3 x10^3/uL (1.8-7.7) Lymphocytes # (Auto) 1.2 x10^3/uL (1.0-4.8) 1.3 x10^3/uL (1.0-4.8) Monocytes # (Auto) 0.5 x10^3/uL (0.0-1.1) 0.4 x10^3/uL (0.0-1.1) Eosinophils # (Auto) 0.3 x10^3/uL (0.0-0.7) 0.3 x10^3/uL (0.0-0.7) Basophils # (Auto) 0.0 x10^3/uL (0.0-0.2) 0.1 x10^3/uL (0.0-0.2) Sodium Level 140 mmol/L (136-145) 138 mmol/L (136-145) Potassium Level 3.0 mmol/L (3.5-5.1) 3.7 mmol/L (3.5-5.1) Chloride Level 102 mmol/L (98-107) 100 mmol/L (98-107) Carbon Dioxide Level 32 mmol/L (21-32) 33 mmol/L (21-32) Anion Gap 6 (6-14) 5 (6-14) Blood Urea Nitrogen 16 mg/dL (7-20) 20 mg/dL (7-20) Creatinine 0.8 mg/dL (0.6-1.0) 0.9 mg/dL (0.6-1.0) Estimated GFR (Cockcroft-Gault) 70.9 61.9 BUN/Creatinine Ratio 20 (6-20) 22 (6-20) Glucose Level 109 mg/dL (70-99) 109 mg/dL (70-99) Calcium Level 8.6 mg/dL (8.5-10.1) 8.9 mg/dL (8.5-10.1) Total Bilirubin 0.3 mg/dL (0.2-1.0) 0.2 mg/dL (0.2-1.0) Aspartate Amino Transf (AST/SGOT) 10 U/L (15-37) 11 U/L (15-37) Alanine Aminotransferase (ALT/SGPT) 24 U/L (14-59) 24 U/L (14-59) Alkaline Phosphatase 67 U/L (46-116) 72 U/L (46-116) Total Protein 5.6 g/dL (6.4-8.2) 5.7 g/dL (6.4-8.2) Albumin 2.1 g/dL (3.4-5.0) 2.2 g/dL (3.4-5.0) Albumin/Globulin Ratio 0.6 (1.0-1.7) 0.6 (1.0-1.7) Creatine Kinase 25 U/L (26-192) Laboratory Tests Test 10/27/19 06:18 White Blood Count 6.3 x10^3/uL (4.0-11.0) Red Blood Count 3.40 x10^6/uL (3.50-5.40) Hemoglobin 8.9 g/dL (12.0-15.5) Hematocrit 27.8 % (36.0-47.0) Mean Corpuscular Volume 82 fL (79-100) Mean Corpuscular Hemoglobin 26 pg (25-35) Mean Corpuscular Hemoglobin Concent 32 g/dL (31-37) Red Cell Distribution Width 15.1 % (11.5-14.5) Platelet Count 347 x10^3/uL (140-400) Neutrophils (%) (Auto) 68 % (31-73) Lymphocytes (%) (Auto) 20 % (24-48) Monocytes (%) (Auto) 7 % (0-9) Eosinophils (%) (Auto) 4 % (0-3) Basophils (%) (Auto) 1 % (0-3) Neutrophils # (Auto) 4.3 x10^3/uL (1.8-7.7) Lymphocytes # (Auto) 1.3 x10^3/uL (1.0-4.8) Monocytes # (Auto) 0.4 x10^3/uL (0.0-1.1) Eosinophils # (Auto) 0.3 x10^3/uL (0.0-0.7) Basophils # (Auto) 0.1 x10^3/uL (0.0-0.2) Sodium Level 138 mmol/L (136-145) Potassium Level 3.7 mmol/L (3.5-5.1) Chloride Level 100 mmol/L (98-107) Carbon Dioxide Level 33 mmol/L (21-32) Anion Gap 5 (6-14) Blood Urea Nitrogen 20 mg/dL (7-20) Creatinine 0.9 mg/dL (0.6-1.0) Estimated GFR (Cockcroft-Gault) 61.9 BUN/Creatinine Ratio 22 (6-20) Glucose Level 109 mg/dL (70-99) Calcium Level 8.9 mg/dL (8.5-10.1) Total Bilirubin 0.2 mg/dL (0.2-1.0) Aspartate Amino Transf (AST/SGOT) 11 U/L (15-37) Alanine Aminotransferase (ALT/SGPT) 24 U/L (14-59) Alkaline Phosphatase 72 U/L (46-116) Creatine Kinase 25 U/L (26-192) Total Protein 5.7 g/dL (6.4-8.2) Albumin 2.2 g/dL (3.4-5.0) Albumin/Globulin Ratio 0.6 (1.0-1.7) Microbiology 10/26/19 Blood Culture - Preliminary, Resulted NO GROWTH AFTER 1 DAY 10/23/19 Gram Stain - Final, Complete 10/23/19 Aerobic Culture - Final, Complete 10/23/19 Antimicrobic Susceptibility - Final, Complete Medications Current Medications Sodium Chloride 1,000 ml @ 1,000 mls/hr 1X ONCE IV Last administered on 10/22/19at 18:59; Start 10/22/19 at 18:45; Stop 10/22/19 at 19:44; Status DC Hydromorphone HCl (Dilaudid) 1 mg 1X ONCE IV Last administered on 10/22/19at 18:57; Start 10/22/19 at 18:45; Stop 10/22/19 at 18:49; Status DC Acetaminophen (Tylenol) 650 mg 1X ONCE PO Last administered on 10/22/19at 18:56; Start 10/22/19 at 18:45; Stop 10/22/19 at 18:49; Status DC Potassium Chloride (Klor-Con) 60 meq 1X ONCE PO Last administered on 10/22/19at 20:06; Start 10/22/19 at 19:45; Stop 10/22/19 at 19:46; Status DC Potassium Chloride/Water 100 ml @ 100 mls/hr Q1H IV Last administered on 10/23/19at 00:53; Start 10/22/19 at 19:50; Stop 10/22/19 at 23:49; Status DC Daptomycin 480 mg/ Sodium Chloride 50 ml @ 100 mls/hr Q24H IV Last administered on 10/26/19at 21:08; Start 10/22/19 at 20:30 Piperacillin Sod/ Tazobactam Sod 3.375 gm/Sodium Chloride 50 ml @ 100 mls/hr 1X ONCE IV Last administered on 10/22/19at 20:06; Start 10/22/19 at 20:00; Stop 10/22/19 at 20:29; Status DC Sodium Chloride (Normal Saline Flush) 3 ml QSHIFT PRN IV AFTER MEDS AND BLOOD DRAWS; Start 10/22/19 at 21:15 Sodium Chloride 1,000 ml @ 70 mls/hr [id number] IV Last administered on 10/27/19at 02:07; Start 10/22/19 at 21:30 Ondansetron HCl (Zofran) 4 mg PRN Q4HRS PRN IV NAUSEA/VOMITING; Start 10/22/19 at 21:15 Acetaminophen (Tylenol) 650 mg PRN Q4HRS PRN PO TEMP OVER 100.4F OR MILD PAIN; Start 10/22/19 at 21:15 Clonidine HCl (Catapres) 0.1 mg PRN Q6HRS PRN PO SBP>160 OR DBP>90; Start 10/22/19 at 21:15 Docusate Sodium (Colace) 100 mg PRN BID PRN PO HARD STOOLS; Start 10/22/19 at 21:15 Albuterol Sulfate (Ventolin Neb Soln) 2.5 mg PRN Q4HRS PRN NEB SHORTNESS OF BREATH; Start 10/22/19 at 21:15 Guaifenesin (Robitussin) 200 mg PRN Q4HRS PRN PO COUGH; Start 10/22/19 at 21:15 Hydromorphone HCl (Dilaudid) 0.5 mg PRN Q2HRS PRN IV MODERATE PAIN Last administered on 10/22/19at 23:49; Start 10/22/19 at 21:15; Stop 10/23/19 at 15:11; Status DC Enoxaparin Sodium (Lovenox 40mg Syringe) 40 mg Q24H SQ Last administered on 10/26/19at 21:08; Start 10/22/19 at 22:00 Potassium Chloride (Klor-Con) 40 meq 1X ONCE PO ; Start 10/22/19 at 21:30; Stop 10/22/19 at 21:40; Status DC Potassium Chloride (Klor-Con) 20 meq 1X ONCE PO ; Start 10/22/19 at 21:30; Stop 10/22/19 at 21:40; Status DC Potassium Chloride (Klor-Con) 20 meq DAILYWBKFT PO Last administered on 10/23/19at 07:53; Start 10/23/19 at 08:00; Stop 10/23/19 at 15:09; Status DC Hydromorphone HCl (Dilaudid) 1 mg PRN Q4HRS PRN IV SEVERE PAIN Last administered on 10/27/19at 03:45; Start 10/22/19 at 21:15 Piperacillin Sod/ Tazobactam Sod 3.375 gm/Sodium Chloride 50 ml @ 100 mls/hr Q6HRS IV Last administered on 10/26/19at 05:30; Start 10/23/19 at 00:00; Stop 10/26/19 at 10:44; Status DC Carvedilol (Coreg) 6.25 mg BIDWMEALS PO Last administered on 10/26/19at 17:54; Start 10/23/19 at 17:00 EZETIMIBE (Zetia) 10 mg DAILY PO Last administered on 10/26/19at 08:35; Start 10/23/19 at 15:00 Potassium Chloride (Klor-Con) 10 meq DAILYWBKFT PO Last administered on 10/26/19at 08:36; Start 10/24/19 at 09:00 Non-Formulary Medication (Daptomycin ) 460 mg DAILY IV ; Start 10/24/19 at 09:00; Status UNV Duloxetine HCl (Cymbalta) 60 mg BID PO Last administered on 10/26/19at 21:07; Start 10/23/19 at 21:00 Citalopram Hydrobromide (CeleXA) 40 mg DAILY PO Last administered on 10/26/19 08:35; Start 10/24/19 at 09:00 Non-Formulary Medication (Hydromorphone Hcl (Dilaudid)) 1 tab PRN Q4HRS PRN PO pain; Start 10/23/19 at 13:45; Status UNV Pantoprazole Sodium (Protonix) 40 mg QHS PO Last administered on 10/26/19 21 :07; Start 10/23/19 at 21:00 Triamterene/HCTZ (Maxzide 37.5/ 25mg) 2 tab DAILY PO Last administered on 10/26/19 08:35; Start 10/24/19 at 09:00 Multivitamins (Thera M Plus) 1 tab DAILY PO Last administered on 10/26/19 08:35; Start 10/24/19 at 09:00 Ascorbic Acid (Vitamin C) 500 mg DAILY PO Last administered on 10/26/19 08:36; Start 10/24/19 at 09:00 Hydromorphone HCl (Dilaudid) 4 mg PRN Q4HRS PRN PO MODERATE PAIN Last administered on 10/23/19 20:25; Start 10/23/19 at 15:15 Lactobacillus Rhamnosus (Culturelle) 1 cap BID PO Last administered on 10/26/19 21:07; Start 10/23/19 at 21:00 Hydromorphone HCl (Dilaudid) 8 mg PRN Q4HRS PRN PO SEVERE PAIN Last administered on 10/27/19at 02:08; Start 10/23/19 at 21:45 Lorazepam (Ativan Inj) 1 mg 1X ONCE IVP Last administered on 10/24/19at 11:25; Start 10/24/19 at 11:30; Stop 10/24/19 at 11:31; Status DC Sevoflurane (Ultane) 60 ml STK-MED ONCE IH ; Start 10/24/19 at 13:45; Stop 10/24/19 at 13:45; Status DC Propofol (Diprivan) 200 mg STK-MED ONCE IV ; Start 10/24/19 at 13:45; Stop 10/24/19 at 13:45; Status DC Ondansetron HCl (Zofran) 4 mg STK-MED ONCE .ROUTE ; Start 10/24/19 at 13:45; Stop 10/24/19 at 13:45; Status DC Dexamethasone Sodium Phosphate (Decadron) 4 mg STK-MED ONCE .ROUTE ; Start 10/24/19 at 13:45; Stop 10/24/19 at 13:46; Status DC Fentanyl Citrate (Fentanyl 2ml Vial) 100 mcg STK-MED ONCE .ROUTE ; Start 10/24/19 at 15:04; Stop 10/24/19 at 15:04; Status DC Midazolam HCl (Versed) 2 mg STK-MED ONCE .ROUTE ; Start 10/24/19 at 15:22; Stop 10/24/19 at 15:23; Status DC Vancomycin HCl (Vancomycin) 1 gm STK-MED ONCE .ROUTE Last administered on 10/24/19at 16:26; Start 10/24/19 at 15:30; Stop 10/24/19 at 15:30; Status DC Vancomycin HCl (Vancomycin) 1 gm STK-MED ONCE .ROUTE Last administered on 10/24/19at 16:26; Start 10/24/19 at 15:30; Stop 10/24/19 at 15:31; Status DC Vancomycin HCl (Vancomycin) 1 gm STK-MED ONCE .ROUTE Last administered on 10/24/19at 16:26; Start 10/24/19 at 15:30; Stop 10/24/19 at 15:31; Status DC Vancomycin HCl (Vancomycin) 1 gm STK-MED ONCE .ROUTE Last administered on 10/24/19at 16:26; Start 10/24/19 at 15:30; Stop 10/24/19 at 15:31; Status DC Hydralazine HCl (Apresoline Inj) 20 mg STK-MED ONCE .ROUTE ; Start 10/24/19 at 16:42; Stop 10/24/19 at 16:43; Status DC Fentanyl Citrate (Fentanyl 2ml Vial) 100 mcg STK-MED ONCE .ROUTE ; Start 10/24/19 at 16:44; Stop 10/24/19 at 16:44; Status DC Esmolol HCl (Brevibloc) 100 mg STK-MED ONCE IVP ; Start 10/24/19 at 17:13; Stop 10/24/19 at 17:13; Status DC Fentanyl Citrate (Fentanyl 2ml Vial) 100 mcg STK-MED ONCE .ROUTE ; Start 10/24/19 at 18:24; Stop 10/24/19 at 18:24; Status DC Fentanyl Citrate (Fentanyl 2ml Vial) 25 mcg PRN Q5MIN PRN IV MILD PAIN 1-3 Last administered on 10/24/19at 18:31; Start 10/24/19 at 18:30; Stop 10/25/19 at 18:29; Status DC Fentanyl Citrate (Fentanyl 2ml Vial) 50 mcg PRN Q5MIN PRN IV MODERATE TO SEVERE PAIN; Start 10/24/19 at 18:30; Stop 10/25/19 at 18:29; Status DC Morphine Sulfate (Morphine Sulfate) 1 mg PRN Q10MIN PRN IV SEVERE PAIN 7-10; Start 10/24/19 at 18:30; Stop 10/25/19 at 18:29; Status DC Ringer's Solution 1,000 ml @ 30 mls/hr Q24H IV Last administered on 10/24/19at 16:00; Start 10/24/19 at 18:25; Stop 10/25/19 at 06:24; Status DC Hydromorphone HCl (Dilaudid) 0.5 mg PRN Q10MIN PRN IV SEV PAIN, Second choice; Start 10/24/19 at 18:30; Stop 10/25/19 at 18:29; Status DC Prochlorperazine Edisylate (Compazine) 5 mg PACU PRN PRN IV NAUSEA, MRX1; Start 10/24/19 at 18:30; Stop 10/25/19 at 18:29; Status DC Zolpidem Tartrate (Ambien) 5 mg PRN QHS PRN PO INSOMNIA Last administered on 10/26/19at 21:07; Start 10/25/19 at 20:00 Meropenem 500 mg/ Sodium Chloride 50 ml @ 100 mls/hr Q6HRS IV Last administered on 10/26/19at 11:52; Start 10/26/19 at 12:00; Stop 10/26/19 at 12:09; Status DC Tigecycline 100 mg/Dextrose 100 ml @ 200 mls/hr 1X ONCE IV Last administered on 10/26/19at 13:19; Start 10/26/19 at 12:15; Stop 10/26/19 at 12:44; Status DC Tigecycline 50 mg/ Dextrose 50 ml @ 100 mls/hr Q12HR IV Last administered on 10/26/19at 21:00; Start 10/26/19 at 21:00 Active Scripts Active Daptomycin 350 Mg Vial 460 Mg IV DAILY 30 Days Merrem (Meropenem) 500 Mg Vial 500 Mg IV Q6HRS 20 Days Dilaudid (Hydromorphone Hcl) 8 Mg Tablet 1 Tab PO PRN Q4HRS PRN MDD 6 Tablet(s) 14 Days Reported Maxzide 75 Mg-50 Mg Tablet (Triamterene/Hydrochlorothiazid) 1 Each Tablet 1 Tab PO DAILY Protonix (Pantoprazole Sodium) 20 Mg Tablet.dr 20 Mg PO HS Coreg (Carvedilol) 6.25 Mg Tablet 1 Tab PO BID Potassium Chloride (Potassium Chloride) 10 Meq Capsule.er 10 Meq PO UD Zetia (Ezetimibe) 10 Mg Tablet 1 Tab PO DAILY AM Vitamin D2 (Ergocalciferol (Vitamin D2)) 50,000 Unit Capsule 50,000 Unit PO QSU Lexapro (Escitalopram Oxalate) 20 Mg Tablet 40 Mg PO DAILY Cymbalta (Duloxetine Hcl) 60 Mg Capsule.dr 60 Mg PO BID Vitals/I & O Vital Sign - Last 24 Hours 10/26/19 10/26/19 10/26/19 10/26/19 10:55 11:00 11:35 14:29 Temp 98.4 98.4 Pulse 75 Resp 16 B/P (MAP) 118/52 (74) Pulse Ox 99 O2 Delivery Room Air Nasal Cannula Room Air Room Air O2 Flow Rate 2.0 10/26/19 10/26/19 10/26/19 10/26/19 15:00 15:58 17:54 19:00 Temp 98.0 97.8 98.0 97.8 Pulse 57 57 70 Resp 16 20 B/P (MAP) 118/51 (73) 118/51 101/41 (61) Pulse Ox 97 100 O2 Delivery Room Air Room Air Room Air 10/26/19 10/26/19 10/26/19 10/26/19 19:10 19:38 20:08 23:00 Temp 97.6 97.6 Pulse 73 Resp 16 16 18 B/P (MAP) 103/48 (66) Pulse Ox 97 O2 Delivery Nasal Cannula Nasal Cannula Nasal Cannula Room Air O2 Flow Rate 2.0 2.0 10/27/19 10/27/19 10/27/19 10/27/19 03:14 03:45 04:07 07:15 Temp 97.4 98.0 97.4 98.0 Pulse 75 76 Resp 20 17 16 18 B/P (MAP) 119/54 (75) 143/52 (82) Pulse Ox 99 98 O2 Delivery Room Air Nasal Cannula Nasal Cannula Nasal Cannula O2 Flow Rate 2.0 Intake and Output 10/26/19 10/26/19 10/27/19 15:00 23:00 07:00 Intake Total 260 ml 250 ml 1000 ml Balance 260 ml 250 ml 1000 ml Justicifation of Admission Dx: Justifications for Admission: Justification of Admission Dx: N/A Sepsis: Infection PERRY CHASE MD Oct 27, 2019 08:43
[2019-10-27] MEDS: EZETIMIBE 10 MG TABLET. PO SCH (10:17)
[2019-10-27] MEDS: LACTOBACILLUS RHAMNOSUS GG 1 CAPSULE. PO SCH ×2 (10:18→21:57)
[2019-10-27] MEDS: ASCORBIC ACID 500 MG TABLET PO SCH (10:18)
[2019-10-27] MEDS: POTASSIUM CHLORIDE 10 MEQ TABLET.ER. PO SCH (10:18)
[2019-10-27] MEDS: CARVEDILOL 6.25 MG TABLET. PO SCH ×2 (10:18→17:54)
[2019-10-27] MEDS: DULoxetine HCL 30 MG CAPSULE.DR PO SCH ×2 (10:18→21:53)
[2019-10-27] MEDS: CITALOPRAM 20 MG TABLET. PO SCH (10:18)
[2019-10-27] MEDS: MULTIVITAMIN with MINERAL TABLET. PO SCH (10:19)
[2019-10-27] MEDS: TRIAMTERENE/HCTZ 37.5/25MG TABLET. PO SCH (10:19)
--- NOTE | 2019-10-27 10:57 | PDOC ---
Infectious Disease Note Subjective: Subjective Patient complains of swelling and discomfort in the right knee Had wound VAC placed this morning Requesting for "RT AKA " Denies fever, nausea, vomiting, shortness of breath, diarrhea, abdominal pain, rash Vital Signs: Vital Signs Vital Signs Date Time Temp Pulse Resp B/P (MAP) Pulse Ox O2 Delivery O2 Flow Rate FiO2 10/27/19 10:18 76 143/52 10/27/19 07:15 98.0 18 98 Nasal Cannula 2.0 98.0 Physical Exam: PHYSICAL EXAM GENERAL: Alert, oriented x 3 female, lying comfortably in bed, in no acute distress. HEENT: Normocephalic, atraumatic. Anicteric. No thrush. Oral mucosa moist. NECK: Supple, no JVD, no thyromegaly. LUNGS: Clear bilaterally. No wheezing. HEART: S1, S2. No gallops or murmurs. ABDOMEN: Soft, obese. Bowel sounds present, nontender, nondistended. EXTREMITIES: Right knee swelling present, wound vac in place NEUROLOGIC: Alert and oriented x 3, grossly nonfocal. PSYCHIATRIC: Cooperative, appropriate mood and affect but cooperative and calm. DERMATOLOGIC: Warm, dry. No generalized rash. PIV looks clean Medications: Inpatient Meds: Current Medications Medications (Trade) Dose Ordered Sig/Hina Start Time Stop Time Status Last Admin Dose Admin Acetaminophen (Tylenol) 650 mg PRN Q4HRS PRN 10/22/19 21:15 Albuterol Sulfate (Ventolin Neb Soln) 2.5 mg PRN Q4HRS PRN 10/22/19 21:15 Ascorbic Acid (Vitamin C) 500 mg DAILY 10/24/19 09:00 10/27/19 10:18 500 MG Carvedilol (Coreg) 6.25 mg BIDWMEALS 10/23/19 17:00 10/27/19 10:18 6.25 MG Citalopram Hydrobromide (CeleXA) 40 mg DAILY 10/24/19 09:00 10/27/19 10:18 40 MG Clonidine HCl (Catapres) 0.1 mg PRN Q6HRS PRN 10/22/19 21:15 Daptomycin 480 mg/ Sodium Chloride 50 ml @ 100 mls/hr Q24H 10/22/19 20:30 10/26/19 21:08 100 MLS/HR Dexamethasone Sodium Phosphate (Decadron) 4 mg STK-MED ONCE 10/24/19 13:45 10/24/19 13:46 DC Docusate Sodium (Colace) 100 mg PRN BID PRN 10/22/19 21:15 Duloxetine HCl (Cymbalta) 60 mg BID 10/23/19 21:00 10/27/19 10:18 60 MG Enoxaparin Sodium (Lovenox 40mg Syringe) 40 mg Q24H 10/22/19 22:00 10/26/19 21:08 40 MG Esmolol HCl (Brevibloc) 100 mg STK-MED ONCE 10/24/19 17:13 10/24/19 17:13 DC EZETIMIBE (Zetia) 10 mg DAILY 10/23/19 15:00 10/27/19 10:17 10 MG Fentanyl Citrate (Fentanyl 2ml Vial) 50 mcg PRN Q5MIN PRN 10/24/19 18:30 10/25/19 18:29 DC Guaifenesin (Robitussin) 200 mg PRN Q4HRS PRN 10/22/19 21:15 Hydralazine HCl (Apresoline Inj) 20 mg STK-MED ONCE 10/24/19 16:42 10/24/19 16:43 DC Hydromorphone HCl (Dilaudid) 0.5 mg PRN Q10MIN PRN 10/24/19 18:30 10/25/19 18:29 DC Lactobacillus Rhamnosus (Culturelle) 1 cap BID 10/23/19 21:00 10/27/19 10:18 1 CAP Lorazepam (Ativan Inj) 1 mg 1X ONCE 10/24/19 11:30 10/24/19 11:31 DC 10/24/19 11:25 1 MG Meropenem 500 mg/ Sodium Chloride 50 ml @ 100 mls/hr Q6HRS 10/26/19 12:00 10/26/19 12:09 DC 10/26/19 11:52 100 MLS/HR Midazolam HCl (Versed) 2 mg STK-MED ONCE 10/24/19 15:22 10/24/19 15:23 DC Morphine Sulfate (Morphine Sulfate) 1 mg PRN Q10MIN PRN 10/24/19 18:30 10/25/19 18:29 DC Multivitamins (Thera M Plus) 1 tab DAILY 10/24/19 09:00 10/27/19 10:19 1 TAB Non-Formulary Medication (Daptomycin ) 460 mg DAILY 10/24/19 09:00 UNV Non-Formulary Medication (Hydromorphone Hcl (Dilaudid)) 1 tab PRN Q4HRS PRN 10/23/19 13:45 UNV Ondansetron HCl (Zofran) 4 mg STK-MED ONCE 10/24/19 13:45 10/24/19 13:45 DC Pantoprazole Sodium (Protonix) 40 mg QHS 10/23/19 21:00 10/26/19 21:07 40 MG Piperacillin Sod/ Tazobactam Sod 3.375 gm/Sodium Chloride 50 ml @ 100 mls/hr Q6HRS 10/23/19 00:00 10/26/19 10:44 DC 10/26/19 05:30 100 MLS/HR Potassium Chloride/Water 100 ml @ 100 mls/hr Q1H 10/22/19 19:50 10/22/19 23:49 DC 10/23/19 00:53 100 MLS/HR Potassium Chloride (Klor-Con) 10 meq [id number] 10/24/19 09:00 10/27/19 10:18 10 MEQ Prochlorperazine Edisylate (Compazine) 5 mg PACU PRN PRN 10/24/19 18:30 10/25/19 18:29 DC Propofol (Diprivan) 200 mg STK-MED ONCE 10/24/19 13:45 10/24/19 13:45 DC Ringer's Solution 1,000 ml @ 30 mls/hr Q24H 10/24/19 18:25 10/25/19 06:24 DC 10/24/19 16:00 30 MLS/HR Sevoflurane (Ultane) 60 ml STK-MED ONCE 10/24/19 13:45 10/24/19 13:45 DC Sodium Chloride 1,000 ml @ 70 mls/hr [id number] 10/22/19 21:30 10/27/19 02:07 70 MLS/HR Sodium Chloride (Normal Saline Flush) 3 ml QSHIFT PRN 10/22/19 21:15 Tigecycline 100 mg/Dextrose 100 ml @ 200 mls/hr 1X ONCE 10/26/19 12:15 10/26/19 12:44 DC 10/26/19 13:19 200 MLS/HR Tigecycline 50 mg/ Dextrose 50 ml @ 100 mls/hr Q12HR 10/27/19 21:00 Triamterene/HCTZ (Maxzide 37.5/ 25mg) 2 tab DAILY 10/24/19 09:00 10/27/19 10:19 2 TAB Vancomycin HCl (Vancomycin) 1 gm STK-MED ONCE 10/24/19 15:30 10/24/19 15:31 DC 10/24/19 16:26 1 GM Zolpidem Tartrate (Ambien) 5 mg PRN QHS PRN 10/25/19 20:00 10/26/19 21:07 5 MG Labs: Lab Laboratory Tests Test 10/27/19 06:18 White Blood Count 6.3 x10^3/uL (4.0-11.0) Red Blood Count 3.40 x10^6/uL (3.50-5.40) Hemoglobin 8.9 g/dL (12.0-15.5) Hematocrit 27.8 % (36.0-47.0) Mean Corpuscular Volume 82 fL (79-100) Mean Corpuscular Hemoglobin 26 pg (25-35) Mean Corpuscular Hemoglobin Concent 32 g/dL (31-37) Red Cell Distribution Width 15.1 % (11.5-14.5) Platelet Count 347 x10^3/uL (140-400) Neutrophils (%) (Auto) 68 % (31-73) Lymphocytes (%) (Auto) 20 % (24-48) Monocytes (%) (Auto) 7 % (0-9) Eosinophils (%) (Auto) 4 % (0-3) Basophils (%) (Auto) 1 % (0-3) Neutrophils # (Auto) 4.3 x10^3/uL (1.8-7.7) Lymphocytes # (Auto) 1.3 x10^3/uL (1.0-4.8) Monocytes # (Auto) 0.4 x10^3/uL (0.0-1.1) Eosinophils # (Auto) 0.3 x10^3/uL (0.0-0.7) Basophils # (Auto) 0.1 x10^3/uL (0.0-0.2) Sodium Level 138 mmol/L (136-145) Potassium Level 3.7 mmol/L (3.5-5.1) Chloride Level 100 mmol/L (98-107) Carbon Dioxide Level 33 mmol/L (21-32) Anion Gap 5 (6-14) Blood Urea Nitrogen 20 mg/dL (7-20) Creatinine 0.9 mg/dL (0.6-1.0) Estimated GFR (Cockcroft-Gault) 61.9 BUN/Creatinine Ratio 22 (6-20) Glucose Level 109 mg/dL (70-99) Calcium Level 8.9 mg/dL (8.5-10.1) Total Bilirubin 0.2 mg/dL (0.2-1.0) Aspartate Amino Transf (AST/SGOT) 11 U/L (15-37) Alanine Aminotransferase (ALT/SGPT) 24 U/L (14-59) Alkaline Phosphatase 72 U/L (46-116) Creatine Kinase 25 U/L (26-192) Total Protein 5.7 g/dL (6.4-8.2) Albumin 2.2 g/dL (3.4-5.0) Albumin/Globulin Ratio 0.6 (1.0-1.7) Micro RUN DATE: 10/26/19 [facility] *LIVE* PAGE 1 RUN TIME: 1123 Specimen Inquiry PATIENT: GREYSON VELEZ ACCT: [id number] LOC: [address] [place] [address] U: [id number] AGE/SX: 69/F ROOM: 517 RE10/22/[address]: PERRY CHASE MD : 1950 BED: 1 DIS: STATUS: ADM IN TLOC: SPEC #: [id number] BUFFY: 10/23/19 STATUS: COMP REQ #: [id number] RECD: 10/23/[address]: SANJIV OSBORN MD SOURCE: KNEE ENTR: 10/22/[address]: EMILY BASSETT MD SPDESC: RIGHT ORDERED: AEROBIC CULT GS COMMENTS: RIGHT KNEE Has specimen been collected/obtained? Y Procedure Result GRAM STAIN Final Final GRAM POSITIVE COCCI:MODERATE SQUAMOUS EPI CELL:RARE PMN (WBCs):FEW Unless otherwise specified, Testing Performed by: [address] [id number] For Inquires, the Physician may contact the Microbiology department at [phone] AEROBIC CULTURE Final Final MANY GRAM POSITIVE COCCI on 10/25/19 at 1148 FINAL ID= [STAPHYLOCOCCUS AUREUS (MRSA)] FEW GRAM NEGATIVE RODS on 10/25/19 at 1149 FINAL ID= [ACINETOBACTER BAU/NOS GROUP] Testing Performed by: [address] [address] For Inquires, the Physician may contact the Microbiology department at [phone] STAPHYLOCOCCUS AUREUS (MRSA) ACINETOBACTER BAU/NOS GROUP ANTIMICROBIAL SUSCEPTIBILITY Final Comment Comment POS TANYA TYPE 38 STAPHYLOCOCCUS AUREUS (MRSA) ANTIBIOTIC RESULT INTERPRETATION AZITHROMYCIN >4 R CLINDAMYCIN >4 R CEFOXITIN SCREEN >4 POS CIPROFLOXACIN >2 R CEFTAROLINE 1 S CONTINUED ON NEXT PAGE RUN DATE: 10/26/19 [facility] *LIVE* PAGE 2 RUN TIME: 1123 Specimen Inquiry SPEC: [id number] PATIENT: SHARYN VELEZPIERCEFabiola Martínez [id number] (Continued) Procedure Result ANTIMICROBIAL SUSCEPTIBILITY Final (continued) DAPTOMYCIN <=0.5 S ERYTHROMYCIN >4 R GENTAMICIN <=4 S LINEZOLID 2 S LEVOFLOXACIN >4 R OXACILLIN >2 R PENICILLIN >2 R* RIFAMPIN <=1 S TRIMETHOPRIM/SULFAMETHOXAZOLE <=0.5/9.5 S TETRACYCLINE <=4 S VANCOMYCIN 1 S NEG TANYA 56 ACINETOBACTER BAU/NOS GROUP ANTIBIOTIC RESULT INTERPRETATION AMPICILLIN/SULBACTAM >16/8 R AMIKACIN >32 R CEFTRIAXONE >32 R CEFTAZIDIME >16 R CEFOTAXIME >32 R CIPROFLOXACIN >2 R CEFEPIME >16 R GENTAMICIN >8 R LEVOFLOXACIN >4 R MINOCYCLINE >8 R MEROPENEM >8 R TRIMETHOPRIM/SULFAMETHOXAZOLE >2/38 R TOBRAMYCIN >8 R Unless otherwise specified, Testing Performed by: [address] [address] For Inquires, the Physician may contact the Microbiology department at [phone] RUN DATE: 10/25/19 [facility] *LIVE* PAGE 1 RUN TIME: 1024 Specimen Inquiry PATIENT: GREYSON VELEZ ACCT: [id number] LOC: [address] [place] [address] U: [id number] AGE/SX: 69/F ROOM: [facility] RE10/22/[address]: PERRY CHASE MD : 1950 BED: 1 DIS: STATUS: ADM IN TLOC: SPEC #: [id number] BUFFY: 10/22/19-1839 STATUS: COMP REQ #: [id number] RECD: 10/22/19-[address]: SANJIV OSBORN MD SOURCE: BLOOD ENTR: 10/23/19-[address]: EMILY BASSETT MD SPDC: ORDERED: BLD CULT - LC Procedure Result BLOOD CULTURE LC Final Final GRAM POSITIVE COCCI FINAL ID= [STAPHYLOCOCCUS AUREUS (MRSA)] STAPHYLOCOCCUS AUREUS (MRSA) ANTIMICROBIAL SUSCEPTIBILITY Final Comment POS TANYA TYPE 38 STAPHYLOCOCCUS AUREUS (MRSA) ANTIBIOTIC RESULT INTERPRETATION AZITHROMYCIN >4 R CLINDAMYCIN >4 R CEFOXITIN SCREEN >4 POS CIPROFLOXACIN >2 R CEFTAROLINE 1 S DAPTOMYCIN <=0.5 S ERYTHROMYCIN >4 R GENTAMICIN <=4 S LINEZOLID 2 S LEVOFLOXACIN >4 R OXACILLIN >2 R PENICILLIN >2 R* RIFAMPIN <=1 S TRIMETHOPRIM/SULFAMETHOXAZOLE <=0.5/9.5 S TETRACYCLINE <=4 S VANCOMYCIN 1 S Unless otherwise specified, Testing Performed by: [address] [address] For Inquires, the Physician may contact the Microbiology department at [phone] - Objective: Assessment: Very complicated case Methicillin-resistant Staphylococcus aureus bacteremia present on admission 4 out of 4 bottles 10/22/2019 source right knee infection Rt knee infection with drainage from last surgery with wound vac, antibiotic spacer October 24, 2019 status post I&D with removal of existing antibiotic spacer extensive debridement and fashioning of rigid antibiotic spacer and placement Operative findings same with superficial cloudy drainage, no gross evidence of deep infection or osteomyelitis, deep cultures taken intraoperatively Cultures positive for MRSA AND XMDROACINETOBACTER BAU/NOS GROUP Fever resolved Leukocytosis improving H/O RT TKA 08/25/2016 Right knee infection prosthetic joint infection status post explant of hardware August 15, 2019 08/15/2019 status post removal of right knee joint implant and plate and screw hardware with debridement and placement of nonarticulating antibiotic spacer, cultures, status post irrigation and debridement of the right knee with hematoma evacuation and revision of antibiotic spacer.Cultures negative 07/25/2019 status post I and D, right knee with poly exchange and extensive mechanism repair done. 07/25/2019, intraoperative cultures positive for Corynebacterium species, sensitive to meropenem and daptomycin. Treated through September 26, 2019 Continued to have drainage postoperatively with wound VAC since 08/02/2019 through this admission. Status post synovial aspirate at [facility] October 13, 2019 Culture information pending from Multiple prior right knee surgeries, please refer to last note for full details History of renal cancer, status post left nephrectomy with mild renal insufficiency. Diabetes mellitus. Hypertension. Obesity. Gastroesophageal reflux disease. ALLERGIES TO SULFA, CEPHALEXIN, has tolerated amoxicillin. Protein-calorie malnutrition. Generalized debility Plan: Plan of Care Patient is requesting for RT AKA due to recurrent infections and persistent wound drainage Continue daptomycin and tigecycline I called micro lab to send for eravacycline and tigecycline susceptibility for XMDROAcinetobacter Unfortunately outcome may not be optimal due to 2 multidrug-resistant organism bone infection with MRSA and XMDROAcinetobacter Patient is requiring wound VAC for persistent right knee drainage, Risk of limb loss and other morbidities including distant metastatic infection from bacteremia remains Monitor for antimicrobial toxicities. Follow-up repeat blood cultures, blood cultures from 10/23 negative so far Monitor labs Wound care as directed Discussed with Dr. De La Cruz yesterday about patient's request Discussed with nursing staff. DEEDEE GREEN MD Oct 27, 2019 10:57
[2019-10-27 11:15] VITALS: BP 126/39
[2019-10-27 15:00] VITALS: BP 111/41
--- NOTE | 2019-10-27 17:06 | NUR ---
Wound Care Wound care follow up to check on vac status. Wound vac did not have any drainage in it and pt is complaining of additional pain. Knee is swollen and feels fluctuant. Unable to reach Dr De La Cruz for instruction, pt requested us to remove the vac to allow knee to drain. Wrapped leg in a brief and kerlix, will need changed frequently to keep skin from macerating.
[2019-10-27 19:00] VITALS: BP_SYST 114; BP_SYST 121; BP_DIAS 47; BP_DIAS 89
[2019-10-27] MEDS: TIGECYCLINE 50 MG in IV DEXTROSE 5% 50 ML IV SCH (21:00)
[2019-10-27] MEDS ORDERED: TIGECYCLINE 50 MG in IV DEXTROSE 5% 50 ML IV SCH (21:00)
[2019-10-27] MEDS: PANTOPRAZOLE 40 MG TABLET.DR. PO SCH (21:53)
[2019-10-27] MEDS: ENOXAPARIN 40 MG/0.4 ML SYRINGE. SQ SCH (21:53)
[2019-10-27] MEDS: DAPTOmycin (GENERIC) IVPB 480 MG in IV NORMAL SALINE 50ML 50 ML IV SCH (22:13)
[2019-10-27] MEDS: ZOLPIDEM 5 MG TABLET. PO PRN (22:16)
[2019-10-27 23:00] VITALS: BP 97/36
[2019-10-28 03:00] VITALS: BP 112/49
[2019-10-28] MEDS: IV NORMAL SALINE 1000ML BAG 1,000 ML IV SCH ×2 (06:12→21:57)
[2019-10-28 07:00] VITALS: BP 109/53
[2019-10-28] MEDS: ASCORBIC ACID 500 MG TABLET PO SCH (10:03)
[2019-10-28] MEDS: MULTIVITAMIN with MINERAL TABLET. PO SCH (10:03)
[2019-10-28] MEDS: LACTOBACILLUS RHAMNOSUS GG 1 CAPSULE. PO SCH ×2 (10:03→21:47)
[2019-10-28] MEDS: CITALOPRAM 20 MG TABLET. PO SCH (10:03)
[2019-10-28] MEDS: EZETIMIBE 10 MG TABLET. PO SCH (10:03)
[2019-10-28] MEDS: DULoxetine HCL 30 MG CAPSULE.DR PO SCH ×2 (10:04→21:47)
[2019-10-28] MEDS: POTASSIUM CHLORIDE 10 MEQ TABLET.ER. PO SCH (10:04)
[2019-10-28] MEDS: CARVEDILOL 6.25 MG TABLET. PO SCH ×2 (10:17→16:46)
[2019-10-28] MEDS: TIGECYCLINE 50 MG in IV DEXTROSE 5% 50 ML IV SCH ×2 (10:17→21:46)
--- NOTE | 2019-10-28 10:25 | PDOC ---
PROGRESS NOTES Date of Service: DATE: 10/28/19 TIME: 10:25 Chief Complaint Chief Complaint POD # 3 Irrigation debridement of right knee with removal existing antibiotic spacer extensive debridement and fashioning of rigid antibiotic spacer and placement Cultures positive STAPHYLOCOCCUS AUREUS AND XMDROACINETOBACTER BAU/NOS GROUP( R TO MERREM, MINOCYCLINE, Unasyn , Bactrim) acute on ongoing knee pain, knee infection sepsis right knee joint infection s/p replacement, with spacer, I obesity, BMI 38 , severe protein-caloric malnutrition htn depression d/w rn ID FOLLOWING IV DAPTOMYCIN CONT VAC for her to try to avoid any accumulation of fluid to avoid the swelling and pain that she had experienced previously History of Present Illness History of Present Illness cont abx, ID consulted she feels a little better, has a high req. for pain meds Vitals Vitals Vital Signs Date Time Temp Pulse Resp B/P (MAP) Pulse Ox O2 Delivery O2 Flow Rate FiO2 10/28/19 07:00 97.7 72 18 109/53 (71) 100 97.7 10/27/19 19:50 Nasal Cannula 2.0 Physical Exam Physical Exam GENERAL: Alert, oriented x 3 female, lying comfortably in bed, in no acute distress. HEENT: Normocephalic, atraumatic. Anicteric. No thrush. Oral mucosa moist. NECK: Supple, no JVD, no thyromegaly. LUNGS: Clear bilaterally. No wheezing. HEART: S1, S2. No gallops or murmurs. ABDOMEN: Soft, obese. Bowel sounds present, nontender, nondistended. EXTREMITIES: Right knee swelling present, wound vac in place NEUROLOGIC: Alert and oriented x 3, grossly nonfocal. PSYCHIATRIC: Cooperative, appropriate mood and affect but cooperative and calm. DERMATOLOGIC: Warm, dry. No generalized rash. PIV looks clean General: Alert, Oriented X3, Cooperative, No acute distress Heart: Regular rate Lungs: Clear Abdomen: Normal bowel sounds, Soft, No tenderness Extremities: No clubbing, No cyanosis, Other Skin: Other (irritation and drainage at knee) Assessment and Plan Assessmemt and Plan Problems Medical Problems: (1) Fever Status: Acute (2) Hypokalemia Status: Acute (3) Right knee pain Status: Acute (4) Sepsis Status: Acute Comment Review of Relevant I have reviewed the following items dieter (where applicable) has been applied. Labs Laboratory Tests Test 10/27/19 06:18 White Blood Count 6.3 x10^3/uL (4.0-11.0) Red Blood Count 3.40 x10^6/uL (3.50-5.40) Hemoglobin 8.9 g/dL (12.0-15.5) Hematocrit 27.8 % (36.0-47.0) Mean Corpuscular Volume 82 fL (79-100) Mean Corpuscular Hemoglobin 26 pg (25-35) Mean Corpuscular Hemoglobin Concent 32 g/dL (31-37) Red Cell Distribution Width 15.1 % (11.5-14.5) Platelet Count 347 x10^3/uL (140-400) Neutrophils (%) (Auto) 68 % (31-73) Lymphocytes (%) (Auto) 20 % (24-48) Monocytes (%) (Auto) 7 % (0-9) Eosinophils (%) (Auto) 4 % (0-3) Basophils (%) (Auto) 1 % (0-3) Neutrophils # (Auto) 4.3 x10^3/uL (1.8-7.7) Lymphocytes # (Auto) 1.3 x10^3/uL (1.0-4.8) Monocytes # (Auto) 0.4 x10^3/uL (0.0-1.1) Eosinophils # (Auto) 0.3 x10^3/uL (0.0-0.7) Basophils # (Auto) 0.1 x10^3/uL (0.0-0.2) Sodium Level 138 mmol/L (136-145) Potassium Level 3.7 mmol/L (3.5-5.1) Chloride Level 100 mmol/L (98-107) Carbon Dioxide Level 33 mmol/L (21-32) Anion Gap 5 (6-14) Blood Urea Nitrogen 20 mg/dL (7-20) Creatinine 0.9 mg/dL (0.6-1.0) Estimated GFR (Cockcroft-Gault) 61.9 BUN/Creatinine Ratio 22 (6-20) Glucose Level 109 mg/dL (70-99) Calcium Level 8.9 mg/dL (8.5-10.1) Total Bilirubin 0.2 mg/dL (0.2-1.0) Aspartate Amino Transf (AST/SGOT) 11 U/L (15-37) Alanine Aminotransferase (ALT/SGPT) 24 U/L (14-59) Alkaline Phosphatase 72 U/L (46-116) Creatine Kinase 25 U/L (26-192) Total Protein 5.7 g/dL (6.4-8.2) Albumin 2.2 g/dL (3.4-5.0) Albumin/Globulin Ratio 0.6 (1.0-1.7) Microbiology 10/27/19 Blood Culture - Preliminary, Resulted NO GROWTH AFTER 1 DAY 10/24/19 Gram Stain - Final, Resulted 10/24/19 Aerobic and Anaerobic Culture - Preliminary, Resulted 10/23/19 Gram Stain - Final, Complete 10/23/19 Aerobic Culture - Final, Complete 10/23/19 Antimicrobic Susceptibility - Final, Complete Medications Current Medications Sodium Chloride 1,000 ml @ 1,000 mls/hr 1X ONCE IV Last administered on 10/22/19at 18:59; Start 10/22/19 at 18:45; Stop 10/22/19 at 19:44; Status DC Hydromorphone HCl (Dilaudid) 1 mg 1X ONCE IV Last administered on 10/22/19at 18:57; Start 10/22/19 at 18:45; Stop 10/22/19 at 18:49; Status DC Acetaminophen (Tylenol) 650 mg 1X ONCE PO Last administered on 10/22/19at 18:56; Start 10/22/19 at 18:45; Stop 10/22/19 at 18:49; Status DC Potassium Chloride (Klor-Con) 60 meq 1X ONCE PO Last administered on 10/22/19at 20:06; Start 10/22/19 at 19:45; Stop 10/22/19 at 19:46; Status DC Potassium Chloride/Water 100 ml @ 100 mls/hr Q1H IV Last administered on 10/23/19at 00:53; Start 10/22/19 at 19:50; Stop 10/22/19 at 23:49; Status DC Daptomycin 480 mg/ Sodium Chloride 50 ml @ 100 mls/hr Q24H IV Last administered on 10/27/19at 22:13; Start 10/22/19 at 20:30 Piperacillin Sod/ Tazobactam Sod 3.375 gm/Sodium Chloride 50 ml @ 100 mls/hr 1X ONCE IV Last administered on 10/22/19at 20:06; Start 10/22/19 at 20:00; Stop 10/22/19 at 20:29; Status DC Sodium Chloride (Normal Saline Flush) 3 ml QSHIFT PRN IV AFTER MEDS AND BLOOD DRAWS; Start 10/22/19 at 21:15 Sodium Chloride 1,000 ml @ 70 mls/hr [id number] IV Last administered on 10/27/19at 17:54; Start 10/22/19 at 21:30 Ondansetron HCl (Zofran) 4 mg PRN Q4HRS PRN IV NAUSEA/VOMITING; Start 10/22/19 at 21:15 Acetaminophen (Tylenol) 650 mg PRN Q4HRS PRN PO TEMP OVER 100.4F OR MILD PAIN; Start 10/22/19 at 21:15 Clonidine HCl (Catapres) 0.1 mg PRN Q6HRS PRN PO SBP>160 OR DBP>90; Start 10/22/19 at 21:15 Docusate Sodium (Colace) 100 mg PRN BID PRN PO HARD STOOLS; Start 10/22/19 at 21:15 Albuterol Sulfate (Ventolin Neb Soln) 2.5 mg PRN Q4HRS PRN NEB SHORTNESS OF BREATH; Start 10/22/19 at 21:15 Guaifenesin (Robitussin) 200 mg PRN Q4HRS PRN PO COUGH; Start 10/22/19 at 21:15 Hydromorphone HCl (Dilaudid) 0.5 mg PRN Q2HRS PRN IV MODERATE PAIN Last administered on 10/22/19at 23:49; Start 10/22/19 at 21:15; Stop 10/23/19 at 15:11; Status DC Enoxaparin Sodium (Lovenox 40mg Syringe) 40 mg Q24H SQ Last administered on 10/27/19at 21:53; Start 10/22/19 at 22:00 Potassium Chloride (Klor-Con) 40 meq 1X ONCE PO ; Start 10/22/19 at 21:30; Stop 10/22/19 at 21:40; Status DC Potassium Chloride (Klor-Con) 20 meq 1X ONCE PO ; Start 10/22/19 at 21:30; Stop 10/22/19 at 21:40; Status DC Potassium Chloride (Klor-Con) 20 meq DAILYWBKFT PO Last administered on 10/23/19at 07:53; Start 10/23/19 at 08:00; Stop 10/23/19 at 15:09; Status DC Hydromorphone HCl (Dilaudid) 1 mg PRN Q4HRS PRN IV SEVERE PAIN Last administered on 10/27/19at 17:54; Start 10/22/19 at 21:15 Piperacillin Sod/ Tazobactam Sod 3.375 gm/Sodium Chloride 50 ml @ 100 mls/hr Q6HRS IV Last administered on 10/26/19at 05:30; Start 10/23/19 at 00:00; Stop 10/26/19 at 10:44; Status DC Carvedilol (Coreg) 6.25 mg BIDWMEALS PO Last administered on 10/27/19at 17:54; Start 10/23/19 at 17:00 EZETIMIBE (Zetia) 10 mg DAILY PO Last administered on 10/28/19at 10:03; Start 10/23/19 at 15:00 Potassium Chloride (Klor-Con) 10 meq DAILYWBKFT PO Last administered on 10/28/19at 10:04; Start 10/24/19 at 09:00 Non-Formulary Medication (Daptomycin ) 460 mg DAILY IV ; Start 10/24/19 at 09:00; Status UNV Duloxetine HCl (Cymbalta) 60 mg BID PO Last administered on 10/28/19at 10:04; Start 10/23/19 at 21:00 Citalopram Hydrobromide (CeleXA) 40 mg DAILY PO Last administered on 10/28/19at 10:03; Start 10/24/19 at 09:00 Non-Formulary Medication (Hydromorphone Hcl (Dilaudid)) 1 tab PRN Q4HRS PRN PO pain; Start 10/23/19 at 13:45; Status UNV Pantoprazole Sodium (Protonix) 40 mg QHS PO Last administered on 10/27/19at 21:53; Start 10/23/19 at 21:00 Triamterene/HCTZ (Maxzide 37.5/ 25mg) 2 tab DAILY PO Last administered on 10/27/19at 10:19; Start 10/24/19 at 09:00 Multivitamins (Thera M Plus) 1 tab DAILY PO Last administered on 10/28/19at 10:03; Start 10/24/19 at 09:00 Ascorbic Acid (Vitamin C) 500 mg DAILY PO Last administered on 10/28/19at 10:03; Start 10/24/19 at 09:00 Hydromorphone HCl (Dilaudid) 4 mg PRN Q4HRS PRN PO MODERATE PAIN Last administered on 10/23/19at 20:25; Start 10/23/19 at 15:15 Lactobacillus Rhamnosus (Culturelle) 1 cap BID PO Last administered on 10/28/19 10:03; Start 10/23/19 at 21:00 Hydromorphone HCl (Dilaudid) 8 mg PRN Q4HRS PRN PO SEVERE PAIN Last administered on 10/27/19at 21:57; Start 10/23/19 at 21:45 Lorazepam (Ativan Inj) 1 mg 1X ONCE IVP Last administered on 10/24/19at 11:25; Start 10/24/19 at 11:30; Stop 10/24/19 at 11:31; Status DC Sevoflurane (Ultane) 60 ml STK-MED ONCE IH ; Start 10/24/19 at 13:45; Stop 10/24/19 at 13:45; Status DC Propofol (Diprivan) 200 mg STK-MED ONCE IV ; Start 10/24/19 at 13:45; Stop 10/24/19 at 13:45; Status DC Ondansetron HCl (Zofran) 4 mg STK-MED ONCE .ROUTE ; Start 10/24/19 at 13:45; Stop 10/24/19 at 13:45; Status DC Dexamethasone Sodium Phosphate (Decadron) 4 mg STK-MED ONCE .ROUTE ; Start 10/24/19 at 13:45; Stop 10/24/19 at 13:46; Status DC Fentanyl Citrate (Fentanyl 2ml Vial) 100 mcg STK-MED ONCE .ROUTE ; Start 10/24/19 at 15:04; Stop 10/24/19 at 15:04; Status DC Midazolam HCl (Versed) 2 mg STK-MED ONCE .ROUTE ; Start 10/24/19 at 15:22; Stop 10/24/19 at 15:23; Status DC Vancomycin HCl (Vancomycin) 1 gm STK-MED ONCE .ROUTE Last administered on 10/24/19at 16:26; Start 10/24/19 at 15:30; Stop 10/24/19 at 15:30; Status DC Vancomycin HCl (Vancomycin) 1 gm STK-MED ONCE .ROUTE Last administered on 10/24/19at 16:26; Start 10/24/19 at 15:30; Stop 10/24/19 at 15:31; Status DC Vancomycin HCl (Vancomycin) 1 gm STK-MED ONCE .ROUTE Last administered on 10/24/19at 16:26; Start 10/24/19 at 15:30; Stop 10/24/19 at 15:31; Status DC Vancomycin HCl (Vancomycin) 1 gm STK-MED ONCE .ROUTE Last administered on 10/24/19at 16:26; Start 10/24/19 at 15:30; Stop 10/24/19 at 15:31; Status DC Hydralazine HCl (Apresoline Inj) 20 mg STK-MED ONCE .ROUTE ; Start 10/24/19 at 16:42; Stop 10/24/19 at 16:43; Status DC Fentanyl Citrate (Fentanyl 2ml Vial) 100 mcg STK-MED ONCE .ROUTE ; Start 10/24/19 at 16:44; Stop 10/24/19 at 16:44; Status DC Esmolol HCl (Brevibloc) 100 mg STK-MED ONCE IVP ; Start 10/24/19 at 17:13; Stop 10/24/19 at 17:13; Status DC Fentanyl Citrate (Fentanyl 2ml Vial) 100 mcg STK-MED ONCE .ROUTE ; Start 10/24/19 at 18:24; Stop 10/24/19 at 18:24; Status DC Fentanyl Citrate (Fentanyl 2ml Vial) 25 mcg PRN Q5MIN PRN IV MILD PAIN 1-3 Last administered on 10/24/19at 18:31; Start 10/24/19 at 18:30; Stop 10/25/19 at 18:29; Status DC Fentanyl Citrate (Fentanyl 2ml Vial) 50 mcg PRN Q5MIN PRN IV MODERATE TO SEVERE PAIN; Start 10/24/19 at 18:30; Stop 10/25/19 at 18:29; Status DC Morphine Sulfate (Morphine Sulfate) 1 mg PRN Q10MIN PRN IV SEVERE PAIN 7-10; Start 10/24/19 at 18:30; Stop 10/25/19 at 18:29; Status DC Ringer's Solution 1,000 ml @ 30 mls/hr Q24H IV Last administered on 10/24/19at 16:00; Start 10/24/19 at 18:25; Stop 10/25/19 at 06:24; Status DC Hydromorphone HCl (Dilaudid) 0.5 mg PRN Q10MIN PRN IV SEV PAIN, Second choice; Start 10/24/19 at 18:30; Stop 10/25/19 at 18:29; Status DC Prochlorperazine Edisylate (Compazine) 5 mg PACU PRN PRN IV NAUSEA, MRX1; Start 10/24/19 at 18:30; Stop 10/25/19 at 18:29; Status DC Zolpidem Tartrate (Ambien) 5 mg PRN QHS PRN PO INSOMNIA Last administered on 10/27/19at 22:16; Start 10/25/19 at 20:00 Meropenem 500 mg/ Sodium Chloride 50 ml @ 100 mls/hr Q6HRS IV Last administered on 10/26/19at 11:52; Start 10/26/19 at 12:00; Stop 10/26/19 at 12:09; Status DC Tigecycline 100 mg/Dextrose 100 ml @ 200 mls/hr 1X ONCE IV Last administered on 10/26/19at 13:19; Start 10/26/19 at 12:15; Stop 10/26/19 at 12:44; Status DC Tigecycline 50 mg/ Dextrose 50 ml @ 100 mls/hr Q12HR IV Last administered on 10/26/19at 21:00; Start 10/26/19 at 21:00; Stop 10/27/19 at 09:36; Status DC Tigecycline 50 mg/ Dextrose 50 ml @ 100 mls/hr Q12HR IV ; Start 10/27/19 at 21:00; Status Cancel Tigecycline 50 mg/ Dextrose 50 ml @ 100 mls/hr Q12HR IV Last administered on 10/27/19at 21:00; Start 10/27/19 at 21:00 Active Scripts Active Daptomycin 350 Mg Vial 460 Mg IV DAILY 30 Days Merrem (Meropenem) 500 Mg Vial 500 Mg IV Q6HRS 20 Days Dilaudid (Hydromorphone Hcl) 8 Mg Tablet 1 Tab PO PRN Q4HRS PRN MDD 6 Tablet(s) 14 Days Reported Maxzide 75 Mg-50 Mg Tablet (Triamterene/Hydrochlorothiazid) 1 Each Tablet 1 Tab PO DAILY Protonix (Pantoprazole Sodium) 20 Mg Tablet.dr 20 Mg PO HS Coreg (Carvedilol) 6.25 Mg Tablet 1 Tab PO BID Potassium Chloride (Potassium Chloride) 10 Meq Capsule.er 10 Meq PO UD Zetia (Ezetimibe) 10 Mg Tablet 1 Tab PO DAILY AM Vitamin D2 (Ergocalciferol (Vitamin D2)) 50,000 Unit Capsule 50,000 Unit PO QSU Lexapro (Escitalopram Oxalate) 20 Mg Tablet 40 Mg PO DAILY Cymbalta (Duloxetine Hcl) 60 Mg Capsule.dr 60 Mg PO BID Vitals/I & O Vital Sign - Last 24 Hours 10/27/19 10/27/19 10/27/19 10/27/19 11:15 15:00 17:54 17:54 Temp 98.1 98.0 98.1 98.0 Pulse 78 67 67 Resp 16 B/P (MAP) 126/39 (68) 111/41 (64) 111/41 Pulse Ox 95 98 O2 Delivery Nasal Cannula Nasal Cannula Room Air O2 Flow Rate 2.0 2.0 10/27/19 10/27/19 10/27/19 10/27/19 19:00 19:05 19:50 23:00 Temp 98.0 98.4 98.0 98.4 Pulse 65 65 Resp 20 16 B/P (MAP) 114/47 (69) 97/36 (56) Pulse Ox 99 99 O2 Delivery Room Air Nasal Cannula O2 Flow Rate 2.0 10/28/19 10/28/19 03:00 07:00 Temp 97.9 97.7 97.9 97.7 Pulse 66 72 Resp 18 18 B/P (MAP) 112/49 (70) 109/53 (71) Pulse Ox 100 100 Intake and Output 10/27/19 10/27/19 10/28/19 14:59 22:59 06:59 Intake Total 120 ml Balance 120 ml Justicifation of Admission Dx: Justifications for Admission: Justification of Admission Dx: N/A Sepsis: Infection PERRY CHASE MD Oct 28, 2019 10:25
[2019-10-28 11:15] VITALS: BP 113/56
[2019-10-28] MEDS: TRIAMTERENE/HCTZ 37.5/25MG TABLET. PO SCH (11:52)
--- NOTE | 2019-10-28 12:13 | PDOC ---
Infectious Disease Note Subjective Subjective Says situation "sucks" c/o persistent right knee pain aggravated by movement. Wound vac was removed yesterday. Pain level is currently a 5 on a scale of 0-10. Denies fever/chills/aches 2L O2 ROS ROS as mentioned above Vital Sign Vital Signs Vital Signs Date Time Temp Pulse Resp B/P (MAP) Pulse Ox O2 Delivery O2 Flow Rate FiO2 10/28/19 11:15 98.1 62 16 113/56 (75) 100 Nasal Cannula 3.0 98.1 Physical Exam PHYSICAL EXAM GENERAL: Propped up in bed, alert, relaxed appearance HEENT: No thrush. Oral mucosa moist. NECK: Supple LUNGS: Clear bilaterally. No wheezing. HEART: S1, S2. No gallops or murmurs. ABDOMEN: Soft, obese. Bowel sounds present, nontender, nondistended. EXTREMITIES: Right knee bandaged. NEUROLOGIC: Alert and oriented x 3, grossly nonfocal. PSYCHIATRIC: Cooperative, appropriate mood and affect DERMATOLOGIC: Warm, dry. No generalized rash. PIV looks clean Labs Micro RUN DATE: 10/25/19 [facility] *LIVE* PAGE 1 RUN TIME: 1024 Specimen Inquiry PATIENT: GREYSON VELEZ ACCT: [id number] LOC: [address] [place] [address] U: [id number] AGE/SX: 69/F ROOM: [facility] RE10/22/[address]: PERRY CHASE MD : 1950 BED: 1 DIS: STATUS: ADM IN TLOC: SPEC #: [id number] BUFFY: 10/22/19 STATUS: COMP REQ #: [id number] RECD: 10/22/[address] [facility] [address]: SANJIV OSBORN MD SOURCE: BLOOD ENTR: 10/23/19-[address] [facility] [address]: EMILY BASSETT MD [facility]: ORDERED: BLD CULT - LC Procedure Result BLOOD CULTURE LC Final Final GRAM POSITIVE COCCI FINAL ID= [STAPHYLOCOCCUS AUREUS (MRSA)] STAPHYLOCOCCUS AUREUS (MRSA) ANTIMICROBIAL SUSCEPTIBILITY Final Comment POS TANYA TYPE 38 STAPHYLOCOCCUS AUREUS (MRSA) ANTIBIOTIC RESULT INTERPRETATION AZITHROMYCIN >4 R CLINDAMYCIN >4 R CEFOXITIN SCREEN >4 POS CIPROFLOXACIN >2 R CEFTAROLINE 1 S DAPTOMYCIN <=0.5 S ERYTHROMYCIN >4 R GENTAMICIN <=4 S LINEZOLID 2 S LEVOFLOXACIN >4 R OXACILLIN >2 R PENICILLIN >2 R* RIFAMPIN <=1 S TRIMETHOPRIM/SULFAMETHOXAZOLE <=0.5/9.5 S TETRACYCLINE <=4 S VANCOMYCIN 1 S Unless otherwise specified, Testing Performed by: [address] [address] For Inquires, the Physician may contact the Microbiology department at [phone] ------- ----- RUN DATE: 10/26/19 [facility] *LIVE* PAGE 1 RUN TIME: 1123 Specimen Inquiry PATIENT: GREYSON VELEZ ACCT: [id number] LOC: [address] [place] [address] U: [id number] AGE/SX: 69/F ROOM: 517 RE10/22/[address]: PERRY CHASE MD : 1950 BED: 1 DIS: STATUS: ADM IN TLOC: SPEC #: [id number] BUFFY: 10/23/19 STATUS: JOSE R REQ #: [id number] RECD: 10/23/[address] [facility] [address]: SANJIV OSBORN MD SOURCE: KNEE ENTR: 10/22/[address]: EMILY BASSETT MD [facility]: RIGHT ORDERED: AEROBIC CULT GS COMMENTS: RIGHT KNEE Has specimen been collected/obtained? Y Procedure Result GRAM STAIN Final Final GRAM POSITIVE COCCI:MODERATE SQUAMOUS EPI CELL:RARE PMN (WBCs):FEW Unless otherwise specified, Testing Performed by: [address] [address] For Inquires, the Physician may contact the Microbiology department at [phone] AEROBIC CULTURE Final Final MANY GRAM POSITIVE COCCI on 10/25/19 at 1148 FINAL ID= [STAPHYLOCOCCUS AUREUS (MRSA)] FEW GRAM NEGATIVE RODS on 10/25/19 at 1149 FINAL ID= [ACINETOBACTER BAU/NOS GROUP] Testing Performed by: [address] [address] For Inquires, the Physician may contact the Microbiology department at [phone] STAPHYLOCOCCUS AUREUS (MRSA) ACINETOBACTER BAU/NOS GROUP ANTIMICROBIAL SUSCEPTIBILITY Final Comment Comment POS TANYA TYPE 38 STAPHYLOCOCCUS AUREUS (MRSA) ANTIBIOTIC RESULT INTERPRETATION AZITHROMYCIN >4 R CLINDAMYCIN >4 R CEFOXITIN SCREEN >4 POS CIPROFLOXACIN >2 R CEFTAROLINE 1 S CONTINUED ON NEXT PAGE RUN DATE: 10/26/19 [facility] *LIVE* PAGE 2 RUN TIME: 112 Specimen Inquiry SPEC: [id number] PATIENT: AGUSTINGREYSON [id number] (Continued) Procedure Result ANTIMICROBIAL SUSCEPTIBILITY Final (continued) DAPTOMYCIN <=0.5 S ERYTHROMYCIN >4 R GENTAMICIN <=4 S LINEZOLID 2 S LEVOFLOXACIN >4 R OXACILLIN >2 R PENICILLIN >2 R* RIFAMPIN <=1 S TRIMETHOPRIM/SULFAMETHOXAZOLE <=0.5/9.5 S TETRACYCLINE <=4 S VANCOMYCIN 1 S NEG TANYA 56 ACINETOBACTER BAU/NOS GROUP ANTIBIOTIC RESULT INTERPRETATION AMPICILLIN/SULBACTAM >16/8 R AMIKACIN >32 R CEFTRIAXONE >32 R CEFTAZIDIME >16 R CEFOTAXIME >32 R CIPROFLOXACIN >2 R CEFEPIME >16 R GENTAMICIN >8 R LEVOFLOXACIN >4 R MINOCYCLINE >8 R MEROPENEM >8 R TRIMETHOPRIM/SULFAMETHOXAZOLE >2/38 R TOBRAMYCIN >8 R Unless otherwise specified, Testing Performed by: [address] [address] For Inquires, the Physician may contact the Microbiology department at [phone] Microbiology 10/27/19 Blood Culture - Preliminary, Resulted NO GROWTH AFTER 1 DAY 10/24/19 Gram Stain - Final, Resulted 10/24/19 Aerobic and Anaerobic Culture - Preliminary, Resulted 10/23/19 Gram Stain - Final, Complete 10/23/19 Aerobic Culture - Final, Complete 10/23/19 Antimicrobic Susceptibility - Final, Complete Objective Assessment Very complicated case MRSA bacteremia, POA (4 out of 4 bottles) 10/22/2019 source right knee infection. -repeat BC 10/23 and 10/26 neg to date Right knee infection with drainage from last surgery with wound vac, antibiotic spacer October 24, 2019 -s/p I&D with removal of existing antibiotic spacer, extensive debridement and fashioning of rigid antibiotic spacer and placement -Operative findings same with superficial cloudy drainage, no gross evidence of deep infection or osteomyelitis. -Intra-op deep cultures positive for MRSA AND XMDRO ACINETOBACTER BAU/NOS GROUP Fever resolved Leukocytosis improving H/o Right TKA 08/25/2016 Right knee infection prosthetic joint infection status post explant of hardware August 15, 2019 -08/15/2019 s/p removal of right knee joint implant and plate and screw hardware with debridement and placement of nonarticulating antibiotic spacer, cultures, s/p I and D with hematoma evacuation and revision of antibiotic spacer. Cultures negative -07/25/2019 status post I and D, right knee with poly exchange and extensive mechanism repair done. -07/25/2019, intraoperative cultures positive for Corynebacterium species, sensitive to meropenem and daptomycin. Treated through September 26, 2019 -Continued to have drainage postoperatively with wound VAC since 08/02/2019 through this admission. -Status post syn[facility] aspirate at [facility] October 13, 2019. Culture information pending from Multiple prior right knee surgeries, please refer to last note for full details History of renal cancer, status post left nephrectomy with mild renal insufficiency. Diabetes mellitus. Hypertension. Obesity. Gastroesophageal reflux disease. ALLERGIES TO SULFA, CEPHALEXIN, has tolerated amoxicillin. Protein-calorie malnutrition. Generalized debility Plan Plan of Care Patient is requesting for Right AKA due to recurrent infections and persistent wound drainage Continue daptomycin and tigecycline Awaiting eravacycline and tigecycline susceptibility for XMDRO Acinetobacter Unfortunately outcome may not be optimal due to 2 multidrug-resistant organism bone infection with MRSA and XMDROAcinetobacter Patient is requiring wound VAC for persistent right knee drainage, currently off Risk of limb loss and other morbidities including distant metastatic infection from bacteremia remains Monitor for antimicrobial toxicities. Follow-up repeat blood cultures, from 10/23 negative so far Monitor labs Wound care as directed Awaiting ortho follow-up Will need echo Contact isolation for MRSA & XMDRO Attending cosign Patient seen and examined. Chart reviewed. Microdata reviewed. Will obtain BRYAN. Ortho follow-up pending. Continue current treatment for now MARYCARMEN BENITEZ APRN Oct 28, 2019 12:13 DEEDEE GREEN MD Oct 28, 2019 13:31
[2019-10-28 15:00] VITALS: BP 121/68
[2019-10-28] MEDS: HYDROmorphone 4 MG TABLET PO PRN ×2 (17:09→21:56)
[2019-10-28 19:29] VITALS: BP 125/48
[2019-10-28] MEDS: DAPTOmycin (GENERIC) IVPB 480 MG in IV NORMAL SALINE 50ML 50 ML IV SCH (21:47)
[2019-10-28] MEDS: ENOXAPARIN 40 MG/0.4 ML SYRINGE. SQ SCH (21:47)
[2019-10-28] MEDS: PANTOPRAZOLE 40 MG TABLET.DR. PO SCH (21:47)
[2019-10-28] MEDS: ZOLPIDEM 5 MG TABLET. PO PRN (21:56)
[2019-10-28 23:00] VITALS: BP 118/38
--- NOTE | 2019-10-29 02:39 | NUR ---
PT REMAIN ALERT AND ORIENT TIMES FOUR. RIGHT KNEE NOTED WITH DRESSING C/D/I. PO DILAUDID GIVEN FOR PAIN. ABLE TO TURN AND GET ON BEDPAN. NEW IV INITATED IN RIGHT FA, 22 GAUGE. IVF INFUSING WITHOUT DIFFICULTY. ISOLATION CONTINUE FOR MRSA. VSS, AFEBRILE. WILL BE NPO Wednesday FOR A BRYAN WEDNESDAY. VSS, AFEBRILE. WILL CONTINUE TO MONITOR
[2019-10-29 03:11] VITALS: BP 128/55
[2019-10-29 07:00] VITALS: BP 145/55
[2019-10-29 07:43] LABS: BASO # 0.1 x10^3/uL (0.0-0.2); BASO % 1 % (0-3); EOS # 0.4 x10^3/uL (0.0-0.7); EOS % 4 % (0-3); HEMATOCRIT 28.7 % (36.0-47.0); HEMOGLOBIN 9.3 g/dL (12.0-15.5); LYMPH # 1.9 x10^3/uL (1.0-4.8); LYMPH % 22 % (24-48); MEAN CORPUSCULAR HEMOGLOBIN 26 pg (25-35); MEAN CORPUSCULAR HGB CONC 32 g/dL (31-37); MEAN CORPUSCULAR VOLUME 81 fL (79-100); MONO # 0.5 x10^3/uL (0.0-1.1); MONO % 6 % (0-9); NEUT # 5.6 x10^3/uL (1.8-7.7); NEUT % 67 % (31-73); PLATELET COUNT 410 x10^3/uL (140-400); RED BLOOD COUNT 3.56 x10^6/uL (3.50-5.40); RED CELL DISTRIBUTION WIDTH 14.8 % (11.5-14.5); WHITE BLOOD COUNT 8.4 x10^3/uL (4.0-11.0)
[2019-10-29 07:56] LABS: ALBUMIN/GLOBULIN RATIO 0.6 (1.0-1.7); CALCIUM 8.4 mg/dL (8.5-10.1); CREATININE 0.8 mg/dL (0.6-1.0); GFR 70.9; POTASSIUM 3.2 mmol/L (3.5-5.1); TOTAL BILIRUBIN 0.3 mg/dL (0.2-1.0); TOTAL PROTEIN 5.4 g/dL (6.4-8.2)
[2019-10-29] MEDS: IV NORMAL SALINE 1000ML BAG 1,000 ML IV SCH ×2 (10:48→17:28)
--- NOTE | 2019-10-29 10:52 | PDOC ---
PROGRESS NOTES Date of Service: DATE: 10/29/19 TIME: 10:51 Chief Complaint Chief Complaint POD # 3 Irrigation debridement of right knee with removal existing antibiotic spacer extensive debridement and fashioning of rigid antibiotic spacer and placement Cultures positive STAPHYLOCOCCUS AUREUS AND XMDROACINETOBACTER BAU/NOS GROUP( R TO MERREM, MINOCYCLINE, Unasyn , Bactrim) acute on ongoing knee pain, knee infection sepsis right knee joint infection s/p replacement, with spacer, I obesity, BMI 38 , severe protein-caloric malnutrition htn depression d/w rn ID FOLLOWING IV DAPTOMYCIN CONT VAC for her to try to avoid any accumulation of fluid to avoid the swelling and pain that she had experienced previously History of Present Illness History of Present Illness cont abx, ID consulted she feels a little better, has a high req. for pain meds Vitals Vitals Vital Signs Date Time Temp Pulse Resp B/P (MAP) Pulse Ox O2 Delivery O2 Flow Rate FiO2 10/29/19 07:00 97.5 75 16 145/55 (85) 99 Room Air 97.5 10/28/19 20:00 3.0 Physical Exam Physical Exam GENERAL: Propped up in bed, alert, relaxed appearance HEENT: No thrush. Oral mucosa moist. NECK: Supple LUNGS: Clear bilaterally. No wheezing. HEART: S1, S2. No gallops or murmurs. ABDOMEN: Soft, obese. Bowel sounds present, nontender, nondistended. EXTREMITIES: Right knee bandaged. NEUROLOGIC: Alert and oriented x 3, grossly nonfocal. PSYCHIATRIC: Cooperative, appropriate mood and affect DERMATOLOGIC: Warm, dry. No generalized rash. PIV looks clean General: Alert, Oriented X3, Cooperative, No acute distress Heart: Regular rate Lungs: Clear Abdomen: Normal bowel sounds, Soft, No tenderness Extremities: No clubbing, No cyanosis, Other Skin: No significant lesion, Other (irritation and drainage at knee) Labs LABS Laboratory Tests Test 10/29/19 06:10 White Blood Count 8.4 x10^3/uL (4.0-11.0) Red Blood Count 3.56 x10^6/uL (3.50-5.40) Hemoglobin 9.3 g/dL (12.0-15.5) Hematocrit 28.7 % (36.0-47.0) Mean Corpuscular Volume 81 fL (79-100) Mean Corpuscular Hemoglobin 26 pg (25-35) Mean Corpuscular Hemoglobin Concent 32 g/dL (31-37) Red Cell Distribution Width 14.8 % (11.5-14.5) Platelet Count 410 x10^3/uL (140-400) Neutrophils (%) (Auto) 67 % (31-73) Lymphocytes (%) (Auto) 22 % (24-48) Monocytes (%) (Auto) 6 % (0-9) Eosinophils (%) (Auto) 4 % (0-3) Basophils (%) (Auto) 1 % (0-3) Neutrophils # (Auto) 5.6 x10^3/uL (1.8-7.7) Lymphocytes # (Auto) 1.9 x10^3/uL (1.0-4.8) Monocytes # (Auto) 0.5 x10^3/uL (0.0-1.1) Eosinophils # (Auto) 0.4 x10^3/uL (0.0-0.7) Basophils # (Auto) 0.1 x10^3/uL (0.0-0.2) Sodium Level 138 mmol/L (136-145) Potassium Level 3.2 mmol/L (3.5-5.1) Chloride Level 99 mmol/L (98-107) Carbon Dioxide Level 36 mmol/L (21-32) Anion Gap 3 (6-14) Blood Urea Nitrogen 15 mg/dL (7-20) Creatinine 0.8 mg/dL (0.6-1.0) Estimated GFR (Cockcroft-Gault) 70.9 BUN/Creatinine Ratio 19 (6-20) Glucose Level 98 mg/dL (70-99) Calcium Level 8.4 mg/dL (8.5-10.1) Total Bilirubin 0.3 mg/dL (0.2-1.0) Aspartate Amino Transf (AST/SGOT) 28 U/L (15-37) Alanine Aminotransferase (ALT/SGPT) 68 U/L (14-59) Alkaline Phosphatase 79 U/L (46-116) Total Protein 5.4 g/dL (6.4-8.2) Albumin 2.0 g/dL (3.4-5.0) Albumin/Globulin Ratio 0.6 (1.0-1.7) Assessment and Plan Assessmemt and Plan Problems Medical Problems: (1) Fever Status: Acute (2) Hypokalemia Status: Acute (3) Right knee pain Status: Acute (4) Sepsis Status: Acute Comment Review of Relevant I have reviewed the following items dieter (where applicable) has been applied. Labs Laboratory Tests Test 10/29/19 06:10 White Blood Count 8.4 x10^3/uL (4.0-11.0) Red Blood Count 3.56 x10^6/uL (3.50-5.40) Hemoglobin 9.3 g/dL (12.0-15.5) Hematocrit 28.7 % (36.0-47.0) Mean Corpuscular Volume 81 fL (79-100) Mean Corpuscular Hemoglobin 26 pg (25-35) Mean Corpuscular Hemoglobin Concent 32 g/dL (31-37) Red Cell Distribution Width 14.8 % (11.5-14.5) Platelet Count 410 x10^3/uL (140-400) Neutrophils (%) (Auto) 67 % (31-73) Lymphocytes (%) (Auto) 22 % (24-48) Monocytes (%) (Auto) 6 % (0-9) Eosinophils (%) (Auto) 4 % (0-3) Basophils (%) (Auto) 1 % (0-3) Neutrophils # (Auto) 5.6 x10^3/uL (1.8-7.7) Lymphocytes # (Auto) 1.9 x10^3/uL (1.0-4.8) Monocytes # (Auto) 0.5 x10^3/uL (0.0-1.1) Eosinophils # (Auto) 0.4 x10^3/uL (0.0-0.7) Basophils # (Auto) 0.1 x10^3/uL (0.0-0.2) Sodium Level 138 mmol/L (136-145) Potassium Level 3.2 mmol/L (3.5-5.1) Chloride Level 99 mmol/L (98-107) Carbon Dioxide Level 36 mmol/L (21-32) Anion Gap 3 (6-14) Blood Urea Nitrogen 15 mg/dL (7-20) Creatinine 0.8 mg/dL (0.6-1.0) Estimated GFR (Cockcroft-Gault) 70.9 BUN/Creatinine Ratio 19 (6-20) Glucose Level 98 mg/dL (70-99) Calcium Level 8.4 mg/dL (8.5-10.1) Total Bilirubin 0.3 mg/dL (0.2-1.0) Aspartate Amino Transf (AST/SGOT) 28 U/L (15-37) Alanine Aminotransferase (ALT/SGPT) 68 U/L (14-59) Alkaline Phosphatase 79 U/L (46-116) Total Protein 5.4 g/dL (6.4-8.2) Albumin 2.0 g/dL (3.4-5.0) Albumin/Globulin Ratio 0.6 (1.0-1.7) Laboratory Tests Test 10/29/19 06:10 White Blood Count 8.4 x10^3/uL (4.0-11.0) Red Blood Count 3.56 x10^6/uL (3.50-5.40) Hemoglobin 9.3 g/dL (12.0-15.5) Hematocrit 28.7 % (36.0-47.0) Mean Corpuscular Volume 81 fL (79-100) Mean Corpuscular Hemoglobin 26 pg (25-35) Mean Corpuscular Hemoglobin Concent 32 g/dL (31-37) Red Cell Distribution Width 14.8 % (11.5-14.5) Platelet Count 410 x10^3/uL (140-400) Neutrophils (%) (Auto) 67 % (31-73) Lymphocytes (%) (Auto) 22 % (24-48) Monocytes (%) (Auto) 6 % (0-9) Eosinophils (%) (Auto) 4 % (0-3) Basophils (%) (Auto) 1 % (0-3) Neutrophils # (Auto) 5.6 x10^3/uL (1.8-7.7) Lymphocytes # (Auto) 1.9 x10^3/uL (1.0-4.8) Monocytes # (Auto) 0.5 x10^3/uL (0.0-1.1) Eosinophils # (Auto) 0.4 x10^3/uL (0.0-0.7) Basophils # (Auto) 0.1 x10^3/uL (0.0-0.2) Sodium Level 138 mmol/L (136-145) Potassium Level 3.2 mmol/L (3.5-5.1) Chloride Level 99 mmol/L (98-107) Carbon Dioxide Level 36 mmol/L (21-32) Anion Gap 3 (6-14) Blood Urea Nitrogen 15 mg/dL (7-20) Creatinine 0.8 mg/dL (0.6-1.0) Estimated GFR (Cockcroft-Gault) 70.9 BUN/Creatinine Ratio 19 (6-20) Glucose Level 98 mg/dL (70-99) Calcium Level 8.4 mg/dL (8.5-10.1) Total Bilirubin 0.3 mg/dL (0.2-1.0) Aspartate Amino Transf (AST/SGOT) 28 U/L (15-37) Alanine Aminotransferase (ALT/SGPT) 68 U/L (14-59) Alkaline Phosphatase 79 U/L (46-116) Total Protein 5.4 g/dL (6.4-8.2) Albumin 2.0 g/dL (3.4-5.0) Albumin/Globulin Ratio 0.6 (1.0-1.7) Microbiology 10/27/19 Blood Culture - Preliminary, Resulted NO GROWTH AFTER 2 DAYS 10/24/19 Gram Stain - Final, Resulted 10/24/19 Aerobic and Anaerobic Culture - Preliminary, Resulted 10/23/19 Gram Stain - Final, Complete 10/23/19 Aerobic Culture - Final, Complete 10/23/19 Antimicrobic Susceptibility - Final, Complete Medications Current Medications Sodium Chloride 1,000 ml @ 1,000 mls/hr 1X ONCE IV Last administered on 10/22/19at 18:59; Start 10/22/19 at 18:45; Stop 10/22/19 at 19:44; Status DC Hydromorphone HCl (Dilaudid) 1 mg 1X ONCE IV Last administered on 10/22/19 18:57; Start 10/22/19 at 18:45; Stop 10/22/19 at 18:49; Status DC Acetaminophen (Tylenol) 650 mg 1X ONCE PO Last administered on 10/22/19at 18:56; Start 10/22/19 at 18:45; Stop 10/22/19 at 18:49; Status DC Potassium Chloride (Klor-Con) 60 meq 1X ONCE PO Last administered on 10/22/19at 20:06; Start 10/22/19 at 19:45; Stop 10/22/19 at 19:46; Status DC Potassium Chloride/Water 100 ml @ 100 mls/hr Q1H IV Last administered on 10/23/19at 00:53; Start 10/22/19 at 19:50; Stop 10/22/19 at 23:49; Status DC Daptomycin 480 mg/ Sodium Chloride 50 ml @ 100 mls/hr Q24H IV Last administered on 10/28/19at 21:47; Start 10/22/19 at 20:30 Piperacillin Sod/ Tazobactam Sod 3.375 gm/Sodium Chloride 50 ml @ 100 mls/hr 1X ONCE IV Last administered on 10/22/19at 20:06; Start 10/22/19 at 20:00; Stop 10/22/19 at 20:29; Status DC Sodium Chloride (Normal Saline Flush) 3 ml QSHIFT PRN IV AFTER MEDS AND BLOOD DRAWS; Start 10/22/19 at 21:15 Sodium Chloride 1,000 ml @ 70 mls/hr [id number] IV Last administered on 10/28/19at 21:57; Start 10/22/19 at 21:30 Ondansetron HCl (Zofran) 4 mg PRN Q4HRS PRN IV NAUSEA/VOMITING; Start 10/22/19 at 21:15 Acetaminophen (Tylenol) 650 mg PRN Q4HRS PRN PO TEMP OVER 100.4F OR MILD PAIN; Start 10/22/19 at 21:15 Clonidine HCl (Catapres) 0.1 mg PRN Q6HRS PRN PO SBP>160 OR DBP>90; Start 10/22/19 at 21:15 Docusate Sodium (Colace) 100 mg PRN BID PRN PO HARD STOOLS; Start 10/22/19 at 21:15 Albuterol Sulfate (Ventolin Neb Soln) 2.5 mg PRN Q4HRS PRN NEB SHORTNESS OF BREATH; Start 10/22/19 at 21:15 Guaifenesin (Robitussin) 200 mg PRN Q4HRS PRN PO COUGH; Start 10/22/19 at 21:15 Hydromorphone HCl (Dilaudid) 0.5 mg PRN Q2HRS PRN IV MODERATE PAIN Last administered on 10/22/19at 23:49; Start 10/22/19 at 21:15; Stop 10/23/19 at 15:11; Status DC Enoxaparin Sodium (Lovenox 40mg Syringe) 40 mg Q24H SQ Last administered on 10/28/19at 21:47; Start 10/22/19 at 22:00 Potassium Chloride (Klor-Con) 40 meq 1X ONCE PO ; Start 10/22/19 at 21:30; Stop 10/22/19 at 21:40; Status DC Potassium Chloride (Klor-Con) 20 meq 1X ONCE PO ; Start 10/22/19 at 21:30; Stop 10/22/19 at 21:40; Status DC Potassium Chloride (Klor-Con) 20 meq DAILYWBKFT PO Last administered on 10/23/19at 07:53; Start 10/23/19 at 08:00; Stop 10/23/19 at 15:09; Status DC Hydromorphone HCl (Dilaudid) 1 mg PRN Q4HRS PRN IV SEVERE PAIN Last administered on 10/27/19at 17:54; Start 10/22/19 at 21:15 Piperacillin Sod/ Tazobactam Sod 3.375 gm/Sodium Chloride 50 ml @ 100 mls/hr Q6HRS IV Last administered on 10/26/19at 05:30; Start 10/23/19 at 00:00; Stop 10/26/19 at 10:44; Status DC Carvedilol (Coreg) 6.25 mg BIDWMEALS PO Last administered on 10/28/19at 16:46; Start 10/23/19 at 17:00 EZETIMIBE (Zetia) 10 mg DAILY PO Last administered on 10/28/19at 10:03; Start 10/23/19 at 15:00 Potassium Chloride (Klor-Con) 10 meq DAILYWBKFT PO Last administered on 10/28/19at 10:04; Start 10/24/19 at 09:00 Non-Formulary Medication (Daptomycin ) 460 mg DAILY IV ; Start 10/24/19 at 09:00; Status UNV Duloxetine HCl (Cymbalta) 60 mg BID PO Last administered on 10/28/19at 21:47; Start 10/23/19 at 21:00 Citalopram Hydrobromide (CeleXA) 40 mg DAILY PO Last administered on 10/28/19 10:03; Start 10/24/19 at 09:00 Non-Formulary Medication (Hydromorphone Hcl (Dilaudid)) 1 tab PRN Q4HRS PRN PO pain; Start 10/23/19 at 13:45; Status UNV Pantoprazole Sodium (Protonix) 40 mg QHS PO Last administered on 10/28/19at 21:47; Start 10/23/19 at 21:00 Triamterene/HCTZ (Maxzide 37.5/ 25mg) 2 tab DAILY PO Last administered on 10/28/19 11:52; Start 10/24/19 at 09:00 Multivitamins (Thera M Plus) 1 tab DAILY PO Last administered on 10/28/19 10:03; Start 10/24/19 at 09:00 Ascorbic Acid (Vitamin C) 500 mg DAILY PO Last administered on 10/28/19 10:03; Start 10/24/19 at 09:00 Hydromorphone HCl (Dilaudid) 4 mg PRN Q4HRS PRN PO MODERATE PAIN Last administered on 10/23/19at 20:25; Start 10/23/19 at 15:15 Lactobacillus Rhamnosus (Culturelle) 1 cap BID PO Last administered on 10/28/19at 21:47; Start 10/23/19 at 21:00 Hydromorphone HCl (Dilaudid) 8 mg PRN Q4HRS PRN PO SEVERE PAIN Last administered on 10/28/19at 21:56; Start 10/23/19 at 21:45 Lorazepam (Ativan Inj) 1 mg 1X ONCE IVP Last administered on 10/24/19at 11:25; Start 10/24/19 at 11:30; Stop 10/24/19 at 11:31; Status DC Sevoflurane (Ultane) 60 ml STK-MED ONCE IH ; Start 10/24/19 at 13:45; Stop 10/24/19 at 13:45; Status DC Propofol (Diprivan) 200 mg STK-MED ONCE IV ; Start 10/24/19 at 13:45; Stop 10/24/19 at 13:45; Status DC Ondansetron HCl (Zofran) 4 mg STK-MED ONCE .ROUTE ; Start 10/24/19 at 13:45; Stop 10/24/19 at 13:45; Status DC Dexamethasone Sodium Phosphate (Decadron) 4 mg STK-MED ONCE .ROUTE ; Start 10/24/19 at 13:45; Stop 10/24/19 at 13:46; Status DC Fentanyl Citrate (Fentanyl 2ml Vial) 100 mcg STK-MED ONCE .ROUTE ; Start 10/24/19 at 15:04; Stop 10/24/19 at 15:04; Status DC Midazolam HCl (Versed) 2 mg STK-MED ONCE .ROUTE ; Start 10/24/19 at 15:22; Stop 10/24/19 at 15:23; Status DC Vancomycin HCl (Vancomycin) 1 gm STK-MED ONCE .ROUTE Last administered on 10/24/19at 16:26; Start 10/24/19 at 15:30; Stop 10/24/19 at 15:30; Status DC Vancomycin HCl (Vancomycin) 1 gm STK-MED ONCE .ROUTE Last administered on 10/24/19at 16:26; Start 10/24/19 at 15:30; Stop 10/24/19 at 15:31; Status DC Vancomycin HCl (Vancomycin) 1 gm STK-MED ONCE .ROUTE Last administered on 10/24/19at 16:26; Start 10/24/19 at 15:30; Stop 10/24/19 at 15:31; Status DC Vancomycin HCl (Vancomycin) 1 gm STK-MED ONCE .ROUTE Last administered on 10/24/19at 16:26; Start 10/24/19 at 15:30; Stop 10/24/19 at 15:31; Status DC Hydralazine HCl (Apresoline Inj) 20 mg STK-MED ONCE .ROUTE ; Start 10/24/19 at 16:42; Stop 10/24/19 at 16:43; Status DC Fentanyl Citrate (Fentanyl 2ml Vial) 100 mcg STK-MED ONCE .ROUTE ; Start 10/24/19 at 16:44; Stop 10/24/19 at 16:44; Status DC Esmolol HCl (Brevibloc) 100 mg STK-MED ONCE IVP ; Start 10/24/19 at 17:13; Stop 10/24/19 at 17:13; Status DC Fentanyl Citrate (Fentanyl 2ml Vial) 100 mcg STK-MED ONCE .ROUTE ; Start 10/24/19 at 18:24; Stop 10/24/19 at 18:24; Status DC Fentanyl Citrate (Fentanyl 2ml Vial) 25 mcg PRN Q5MIN PRN IV MILD PAIN 1-3 Last administered on 10/24/19at 18:31; Start 10/24/19 at 18:30; Stop 10/25/19 at 18:29; Status DC Fentanyl Citrate (Fentanyl 2ml Vial) 50 mcg PRN Q5MIN PRN IV MODERATE TO SEVERE PAIN; Start 10/24/19 at 18:30; Stop 10/25/19 at 18:29; Status DC Morphine Sulfate (Morphine Sulfate) 1 mg PRN Q10MIN PRN IV SEVERE PAIN 7-10; Start 10/24/19 at 18:30; Stop 10/25/19 at 18:29; Status DC Ringer's Solution 1,000 ml @ 30 mls/hr Q24H IV Last administered on 10/24/19at 16:00; Start 10/24/19 at 18:25; Stop 10/25/19 at 06:24; Status DC Hydromorphone HCl (Dilaudid) 0.5 mg PRN Q10MIN PRN IV SEV PAIN, Second choice; Start 10/24/19 at 18:30; Stop 10/25/19 at 18:29; Status DC Prochlorperazine Edisylate (Compazine) 5 mg PACU PRN PRN IV NAUSEA, MRX1; Start 10/24/19 at 18:30; Stop 10/25/19 at 18:29; Status DC Zolpidem Tartrate (Ambien) 5 mg PRN QHS PRN PO INSOMNIA Last administered on 10/28/19at 21:56; Start 10/25/19 at 20:00 Meropenem 500 mg/ Sodium Chloride 50 ml @ 100 mls/hr Q6HRS IV Last administered on 10/26/19at 11:52; Start 10/26/19 at 12:00; Stop 10/26/19 at 12:09; Status DC Tigecycline 100 mg/Dextrose 100 ml @ 200 mls/hr 1X ONCE IV Last administered on 10/26/19at 13:19; Start 10/26/19 at 12:15; Stop 10/26/19 at 12:44; Status DC Tigecycline 50 mg/ Dextrose 50 ml @ 100 mls/hr Q12HR IV Last administered on 10/26/19at 21:00; Start 10/26/19 at 21:00; Stop 10/27/19 at 09:36; Status DC Tigecycline 50 mg/ Dextrose 50 ml @ 100 mls/hr Q12HR IV ; Start 10/27/19 at 21:00; Status Cancel Tigecycline 50 mg/ Dextrose 50 ml @ 100 mls/hr Q12HR IV Last administered on 10/28/19at 21:46; Start 10/27/19 at 21:00 Active Scripts Active Daptomycin 350 Mg Vial 460 Mg IV DAILY 30 Days Merrem (Meropenem) 500 Mg Vial 500 Mg IV Q6HRS 20 Days Dilaudid (Hydromorphone Hcl) 8 Mg Tablet 1 Tab PO PRN Q4HRS PRN MDD 6 Tablet(s) 14 Days Reported Maxzide 75 Mg-50 Mg Tablet (Triamterene/Hydrochlorothiazid) 1 Each Tablet 1 Tab PO DAILY Protonix (Pantoprazole Sodium) 20 Mg Tablet.dr 20 Mg PO HS Coreg (Carvedilol) 6.25 Mg Tablet 1 Tab PO BID Potassium Chloride (Potassium Chloride) 10 Meq Capsule.er 10 Meq PO UD Zetia (Ezetimibe) 10 Mg Tablet 1 Tab PO DAILY AM Vitamin D2 (Ergocalciferol (Vitamin D2)) 50,000 Unit Capsule 50,000 Unit PO QSU Lexapro (Escitalopram Oxalate) 20 Mg Tablet 40 Mg PO DAILY Cymbalta (Duloxetine Hcl) 60 Mg Capsule.dr 60 Mg PO BID Vitals/I & O Vital Sign - Last 24 Hours 10/28/19 10/28/19 10/28/19 10/28/19 11:15 15:00 16:46 19:29 Temp 98.1 98.1 98.2 98.1 98.1 98.2 Pulse 62 70 68 72 Resp 16 18 16 B/P (MAP) 113/56 (75) 121/68 (85) 111/53 125/48 (73) Pulse Ox 100 100 95 O2 Delivery Nasal Cannula Room Air Room Air O2 Flow Rate 3.0 10/28/19 10/28/19 10/29/19 10/29/19 20:00 23:00 03:11 07:00 Temp 98.0 98.0 97.5 98.0 98.0 97.5 Pulse 63 65 75 Resp 20 18 16 B/P (MAP) 118/38 (64) 128/55 (79) 145/55 (85) Pulse Ox 100 99 99 O2 Delivery Nasal Cannula Room Air Room Air Room Air O2 Flow Rate 3.0 Intake and Output 10/28/19 10/28/19 10/29/19 15:00 23:00 07:00 Intake Total 100 ml 200 ml Output Total 150 ml Balance -50 ml 200 ml Justicifation of Admission Dx: Justifications for Admission: Justification of Admission Dx: N/A Sepsis: Infection PERRY CHASE MD Oct 29, 2019 10:52
[2019-10-29 11:00] VITALS: BP 160/58
[2019-10-29] MEDS: HYDROmorphone 4 MG TABLET PO PRN ×3 (11:00→21:39)
[2019-10-29] MEDS: CITALOPRAM 20 MG TABLET. PO SCH (11:01)
[2019-10-29] MEDS: DULoxetine HCL 30 MG CAPSULE.DR PO SCH ×2 (11:01→21:34)
[2019-10-29] MEDS: LACTOBACILLUS RHAMNOSUS GG 1 CAPSULE. PO SCH ×2 (11:01→21:33)
[2019-10-29] MEDS: POTASSIUM CHLORIDE 10 MEQ TABLET.ER. PO SCH (11:01)
[2019-10-29] MEDS: ASCORBIC ACID 500 MG TABLET PO SCH (11:01)
[2019-10-29] MEDS: MULTIVITAMIN with MINERAL TABLET. PO SCH (11:01)
[2019-10-29] MEDS: EZETIMIBE 10 MG TABLET. PO SCH (11:01)
[2019-10-29] MEDS: CARVEDILOL 6.25 MG TABLET. PO SCH ×2 (11:02→17:26)
--- NOTE | 2019-10-29 11:05 | NUR ---
This RN nonadministered bag of scheduled NS @ 70, refer to EMAR for details. Previous bag still infusing.
[2019-10-29] MEDS: TRIAMTERENE/HCTZ 37.5/25MG TABLET. PO SCH (11:45)
[2019-10-29] MEDS: TIGECYCLINE 50 MG in IV DEXTROSE 5% 50 ML IV SCH ×2 (11:46→21:33)
--- NOTE | 2019-10-29 11:52 | PN ---
DATE: 10/28/2019 ORTHOPEDIC DAILY PROGRESS NOTE The patient is a postop from a removal with reinsertion of an antibiotic spacer in preparation for a planned knee fusion that was to occur at [facility] following a referral there to Dr. Hernandez. She came here because of the visit with the and knee aspiration was scheduled quite far in the future for revision of her antibiotic spacer, but was having a great deal of pain here with some instability of the spacer and some otherwise findings of sepsis. She therefore underwent the surgery for revision of the spacer and deep cultures postoperatively based on the discussion with Dr. Moyer, indicated a growth of MRSA and I believe Acinetobacter, which are both concerning organisms resistant to antibiotic treatment, difficult to clear. The patient, based on my discussions of yesterday while I did not evaluate her directly because I am not proration clerk, but did want to have a detailed discussion about the concerns and treatment options with her with this being the documentation of that conversation and the subsequent conversations of yesterday, 10/28/2019. I first listened to her and her symptoms and she notes that while her pain is not as severe as when she came in, she still has pain approximately 7 on a scale of 10 with any movement and it is really above her tolerance level despite doses of IV Dilaudid, which otherwise keep it somewhat in check, but really not tolerable or practical on an ongoing basis. She said she has severe pain and spasm in the leg with any movement and getting up and around. It has improved somewhat after surgery, but again really not to a tolerable level if this would be an ongoing expectation of her pain. We had reviewed a previous detailed discussion on a previous admission, discussing the possibility of knee fusion if the infection could be cleared. We discussed the inability really of reimplantation of a prosthesis to be practical as she has no functional extensor mechanism due to the previous traumas and we had also discussed the possibility of above-knee amputation as a definitive means as possible of clearing her infection and being able to move on potentially with the use of a prosthesis. She has specifically asked if the above-knee amputation would definitively cure the infection and we discussed that there are no absolute definitive answers; however, that would be a reasonable conclusion and I did describe that generally the involved tissue areas are removed and tissue with a good blood supply is remaining, her immune system along with the antibiotics can generally fight off any minimal remaining sources of infection much, much easier than even with the presence of the antibiotic spacer and the current resistant infection that she has based on my most recent intraoperative cultures. The results of the previous aspiration a couple of weeks prior at her visit at [facility] are not available as of yet. Nevertheless, I emphasized that these cultures that were obtained would be the most accurate possible being deep really in the canal of the bone both on the femoral and the tibial side. We also went over some of the downsides of the knee fusion procedure and specifically the severe pain that she is in at present with the antibiotic spacer really as stable as we can make it as a temporary measure that if her pain is that severe and intolerable, that may not dakota well for her ongoing results of a knee fusion. Conversely, the above-knee amputation would require significantly increased energy expenditure for ambulation and transfers compared to a council functional leg and that certainly does factor into her ability to adapt activity level yeager. We generally otherwise covered risks, benefits, postoperative course, the potential amputation procedure as opposed to staying the course with the antibiotic spacer and potential plans for a knee fusion. She really indicated that in terms of her pain that she cannot take it anymore even the way it is unless it would very, very significantly improve and really is leaning very strongly toward the amputation route. I had talked to her some as well about the potential tenderness of the stump area and techniques to mitigate that as well as some occurrence of phantom pain and all in all, she appreciated the detailed discussion and indicated that she wanted to talk to her family and would get back to me about a course of action as I had offered to make myself available over the weekend, although not proration clerk and I just need some notice in terms of setting up something with the operating room if she decided to proceed with the amputation rather than delaying her care. She had gotten back to me later after the discussion with her family and indicated that she did want to proceed with an above-knee amputation and preferred strongly that Vascular Surgery perform the procedure. She had had a previous question about the amputation during our discussion with her as I had offered to perform this if she decided on it and she asked whether she was under the impression that Vascular Surgery did amputations. I went over with her that both Vascular and Orthopedics do perform the operation and she knew this prior, but on discussion with the family, they were really firm in their decision in terms of having Vascular Surgery perform the procedure. I therefore called the on-call Vascular surgeon for the [facility], Dr. Palm and he indicated that he would consult on her. He had asked why she wanted Vascular to do the procedure; I indicated that I did not know, but I would not cross her decision as I had given her all the information that I was really able and he indicated that he had a lot of procedures, including operatively today and would be unlikely to be able to do the surgery until next week. I had relayed that information immediately on to the patient's nurse, so they would have an idea that the Vascular surgeon would be evaluating her as a formal consult was placed, but it was certainly unlikely that they would be able to do surgery until next week. Please note that I did not have her account number immediately available as I am not on-call this weekend. This is just documenting a discussion with the patient for her informational purposes to make ongoing treatment decisions. LESLIE PEREZ MD DR: VINCE/sherry JOB#: [id number] / [id number]
--- NOTE | 2019-10-29 12:16 | PDOC ---
Infectious Disease Note Subjective Subjective Continues to want an amputation, requesting vascular to perform Ongoing right knee pain Denies fever/chills/aches 2L O2 ROS ROS as mentioned above Vital Sign Vital Signs Vital Signs Date Time Temp Pulse Resp B/P (MAP) Pulse Ox O2 Delivery O2 Flow Rate FiO2 10/29/19 11:02 75 145/55 10/29/19 07:00 97.5 16 99 Room Air 97.5 10/28/19 20:00 3.0 Physical Exam PHYSICAL EXAM GENERAL: Propped up in bed, alert, relaxed appearance HEENT: Oral mucosa moist. NECK: Supple LUNGS: Clear bilaterally. No wheezing. HEART: S1, S2. No gallops or murmurs. ABDOMEN: Soft, obese. Bowel sounds present, nontender, nondistended. EXTREMITIES: Right knee bandaged. NEUROLOGIC: Alert and oriented x 3, grossly nonfocal. PSYCHIATRIC: Cooperative, appropriate mood and affect DERMATOLOGIC: Warm, dry. No generalized rash. PIV looks clean Labs Lab Laboratory Tests Test 10/29/19 06:10 White Blood Count 8.4 x10^3/uL (4.0-11.0) Red Blood Count 3.56 x10^6/uL (3.50-5.40) Hemoglobin 9.3 g/dL (12.0-15.5) Hematocrit 28.7 % (36.0-47.0) Mean Corpuscular Volume 81 fL (79-100) Mean Corpuscular Hemoglobin 26 pg (25-35) Mean Corpuscular Hemoglobin Concent 32 g/dL (31-37) Red Cell Distribution Width 14.8 % (11.5-14.5) Platelet Count 410 x10^3/uL (140-400) Neutrophils (%) (Auto) 67 % (31-73) Lymphocytes (%) (Auto) 22 % (24-48) Monocytes (%) (Auto) 6 % (0-9) Eosinophils (%) (Auto) 4 % (0-3) Basophils (%) (Auto) 1 % (0-3) Neutrophils # (Auto) 5.6 x10^3/uL (1.8-7.7) Lymphocytes # (Auto) 1.9 x10^3/uL (1.0-4.8) Monocytes # (Auto) 0.5 x10^3/uL (0.0-1.1) Eosinophils # (Auto) 0.4 x10^3/uL (0.0-0.7) Basophils # (Auto) 0.1 x10^3/uL (0.0-0.2) Sodium Level 138 mmol/L (136-145) Potassium Level 3.2 mmol/L (3.5-5.1) Chloride Level 99 mmol/L (98-107) Carbon Dioxide Level 36 mmol/L (21-32) Anion Gap 3 (6-14) Blood Urea Nitrogen 15 mg/dL (7-20) Creatinine 0.8 mg/dL (0.6-1.0) Estimated GFR (Cockcroft-Gault) 70.9 BUN/Creatinine Ratio 19 (6-20) Glucose Level 98 mg/dL (70-99) Calcium Level 8.4 mg/dL (8.5-10.1) Total Bilirubin 0.3 mg/dL (0.2-1.0) Aspartate Amino Transf (AST/SGOT) 28 U/L (15-37) Alanine Aminotransferase (ALT/SGPT) 68 U/L (14-59) Alkaline Phosphatase 79 U/L (46-116) Total Protein 5.4 g/dL (6.4-8.2) Albumin 2.0 g/dL (3.4-5.0) Albumin/Globulin Ratio 0.6 (1.0-1.7) Micro Microbiology 10/27/19 Blood Culture - Preliminary, Resulted NO GROWTH AFTER 2 DAY Objective Assessment Very complicated case MRSA bacteremia, POA (4 out of 4 bottles) 10/22/2019 source right knee infection. -repeat BC 10/23, 10/25 and 10/26 neg to date Right knee infection with drainage from last surgery with wound vac -Oct 23 2019 Cultures positive for MRSA AND XMDRO ACINETOBACTER BAU/NOS GROUP - Oct 23 cultures not reported yet,pending ,d/w micro today -On Oct 24, 2019 s/p I&D with removal of existing antibiotic spacer, extensive debridement and fashioning of rigid antibiotic spacer and placement -Operative findings same with superficial cloudy drainage, no gross evidence of deep infection or osteomyelitis. 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 -Status post synovial aspirate at [facility] October 13, 2019. Positive for acinetobacter bau (Unasyn-S) and VRE (also resistent to ampicillin, tetra, Dapto and intermediate to linazolid) She was initially scheduled to have a revision/placement of abx spacer on Dec [address] Persaud -08/15/2019 s/p removal of right knee joint implant and plate and screw hardware with debridement and placement of nonarticulating antibiotic spacer, cultures, s/p I and D with hematoma evacuation and revision of antibiotic spacer. Cultures negative -07/25/2019 status post I and D, right knee with poly exchange and extensive mechanism repair done. -07/25/2019, intraoperative cultures positive for Corynebacterium species, sensitive to meropenem and daptomycin. Treated through September 26, 2019 H/o Right TKA 08/25/2016 History of renal cancer, status post left nephrectomy with mild renal insufficiency. Diabetes mellitus. Hypertension. Obesity. Gastroesophageal reflux disease. ALLERGIES TO SULFA, CEPHALEXIN, has tolerated amoxicillin. Protein-calorie malnutrition. Generalized debility Plan Plan of Care Micro data from reviewed. Continue daptomycin and tigecycline Awaiting eravacycline and tigecycline susceptibility for XMDRO Acinetobacter Unfortunately outcome may not be optimal due to 3 multidrug-resistant organism bone infection with MRSA, XMDRO Acinetobacter and XMDRO VRE. Patient is requiring wound VAC for persistent right knee drainage, currently off Risk of limb loss despite antibiotic therapy due to MDRO infections Remains at risk of other comorbidities including distant metastatic infection from MRSA bacteremia Monitor for antimicrobial toxicities. Follow-up repeat blood cultures, from 10/23 negative so far Monitor labs Wound care as directed Patient is requesting for right AKA due to recurrent infections and persistent wound drainage. Vascular service has been consulted for AKA Await BRYAN Contact isolation for MRSA & XMDROs Attending Co-Sign Attending Co-Sign The patient was seen and examined at the bedside. The chart was reviewed. The case was discussed. Co-formulated above assessment and plan Awaiting vascular evaluation MARYCARMEN BENITEZ APRN Oct 29, 2019 12:16 DEEDEE GREEN MD Oct 29, 2019 15:15
--- NOTE | 2019-10-29 13:43 | PDOC2 ---
CONSULT Date of Service Date of Service DATE: 10/29/19 TIME: 13:16 Reason for Consult Reason for Consult: right knee replacement infection, need for above knee amputation Referring Physician Referring Physician: Dr De La Cruz Identification/Chief Complaint Chief Complaint Pt is a 64 y/o woman with a Hx of right knee replacement that became infected, apparently seen here and at [facility] with repeated attempts at drainage / Abx / etc. She currently only has a spacer in place. She had a culture come back that showed multiple resistant organisms and after counseling by Orthopedic Surgery wants to proceed above knee amputation. Apparently her children told her that she should have a vascular surgeon do this and so she has asked for us to evaluate her for amputation. She is not on oral anticoagulation or plavix / brillinta etc Source Source: Caregiver, Chart review, Patient History of Present Illness Reason for Visit: Pt is a 64 y/o woman with a Hx of right knee replacement that became infected, apparently seen here and at [facility] with repeated attempts at drainage / Abx / etc. She currently only has a spacer in place. She had a culture come back that showed multiple resistant organisms and after counseling by Orthopedic Surgery wants to proceed above knee amputation. Apparently her children told her that she should have a vascular surgeon do this and so she has asked for us to evaluate her for amputation. From talking to her she is under the impression that we would be able to perform the amputation in a way that would make her less likely to have chronic post-operative pain. I discussed with her that I am not aware of any specific surgical technique that affects that outcome. We coul d ask anesthesia to perform a nerve block She is not on oral anticoagulation or plavix / brillinta etc I am not familiar with knee spacers but it does not sound like there is any foreign body / metal above the knee Past Medical History Cardiovascular: HTN Pulmonary: No pertinent hx GI: GERD, Other Heme/Onc: Cancer Hepatobiliary: No pertinent hx, Cholelithiasis Psych: Anxiety, Depression Rheumatologic: No pertinent hx Infectious disease: No pertinent hx Renal/: Renal Ca. Endocrine: No pertinent hx Past Surgical History Past Surgical History: Cataract Removal, Total knee replacement, Tonsillectomy, Hysterectomy, Other Family History Family History: Hypertension Social History No ALCOHOL: rare Drugs: None Lives: with Family Domestic Violence: Neg Current Problem List Problem List Problems Medical Problems: (1) Fever Status: Acute (2) Hypokalemia Status: Acute (3) Right knee pain Status: Acute (4) Sepsis Status: Acute Current Medications Current Medications Current Medications Sodium Chloride 1,000 ml @ 1,000 mls/hr 1X ONCE IV Last administered on 10/22/19 18:59; Start 10/22/19 at 18:45; Stop 10/22/19 at 19:44; Status DC Hydromorphone HCl (Dilaudid) 1 mg 1X ONCE IV Last administered on 10/22/19 18:57; Start 10/22/19 at 18:45; Stop 10/22/19 at 18:49; Status DC Acetaminophen (Tylenol) 650 mg 1X ONCE PO Last administered on 10/22/19 18:56; Start 10/22/19 at 18:45; Stop 10/22/19 at 18:49; Status DC Potassium Chloride (Klor-Con) 60 meq 1X ONCE PO Last administered on 10/22/19 20:06; Start 10/22/19 at 19:45; Stop 10/22/19 at 19:46; Status DC Potassium Chloride/Water 100 ml @ 100 mls/hr Q1H IV Last administered on 10/23/19at 00:53; Start 10/22/19 at 19:50; Stop 10/22/19 at 23:49; Status DC Daptomycin 480 mg/ Sodium Chloride 50 ml @ 100 mls/hr Q24H IV Last administered on 10/28/19at 21:47; Start 10/22/19 at 20:30 Piperacillin Sod/ Tazobactam Sod 3.375 gm/Sodium Chloride 50 ml @ 100 mls/hr 1X ONCE IV Last administered on 10/22/19 20:06; Start 10/22/19 at 20:00; Stop 10/22/19 at 20:29; Status DC Sodium Chloride (Normal Saline Flush) 3 ml QSHIFT PRN IV AFTER MEDS AND BLOOD DRAWS; Start 10/22/19 at 21:15 Sodium Chloride 1,000 ml @ 70 mls/hr [id number] IV Last administered on 10/28/19at 21:57; Start 10/22/19 at 21:30 Ondansetron HCl (Zofran) 4 mg PRN Q4HRS PRN IV NAUSEA/VOMITING; Start 10/22/19 at 21:15 Acetaminophen (Tylenol) 650 mg PRN Q4HRS PRN PO TEMP OVER 100.4F OR MILD PAIN; Start 10/22/19 at 21:15 Clonidine HCl (Catapres) 0.1 mg PRN Q6HRS PRN PO SBP>160 OR DBP>90; Start 10/22/19 at 21:15 Docusate Sodium (Colace) 100 mg PRN BID PRN PO HARD STOOLS; Start 10/22/19 at 21:15 Albuterol Sulfate (Ventolin Neb Soln) 2.5 mg PRN Q4HRS PRN NEB SHORTNESS OF BREATH; Start 10/22/19 at 21:15 Guaifenesin (Robitussin) 200 mg PRN Q4HRS PRN PO COUGH; Start 10/22/19 at 21:15 Hydromorphone HCl (Dilaudid) 0.5 mg PRN Q2HRS PRN IV MODERATE PAIN Last admin istered on 10/22/19at 23:49; Start 10/22/19 at 21:15; Stop 10/23/19 at 15:11; Status DC Enoxaparin Sodium (Lovenox 40mg Syringe) 40 mg Q24H SQ Last administered on 10/28/19at 21:47; Start 10/22/19 at 22:00 Potassium Chloride (Klor-Con) 40 meq 1X ONCE PO ; Start 10/22/19 at 21:30; Stop 10/22/19 at 21:40; Status DC Potassium Chloride (Klor-Con) 20 meq 1X ONCE PO ; Start 10/22/19 at 21:30; Stop 10/22/19 at 21:40; Status DC Potassium Chloride (Klor-Con) 20 meq DAILYWBKFT PO Last administered on 10/23/19at 07:53; Start 10/23/19 at 08:00; Stop 10/23/19 at 15:09; Status DC Hydromorphone HCl (Dilaudid) 1 mg PRN Q4HRS PRN IV SEVERE PAIN Last administered on 10/27/19at 17:54; Start 10/22/19 at 21:15 Piperacillin Sod/ Tazobactam Sod 3.375 gm/Sodium Chloride 50 ml @ 100 mls/hr Q6HRS IV Last administered on 10/26/19at 05:30; Start 10/23/19 at 00:00; Stop 10/26/19 at 10:44; Status DC Carvedilol (Coreg) 6.25 mg BIDWMEALS PO Last administered on 10/29/19 11:02; Start 10/23/19 at 17:00 EZETIMIBE (Zetia) 10 mg DAILY PO Last administered on 10/29/19 11:01; Start 10/23/19 at 15:00 Potassium Chloride (Klor-Con) 10 meq DAILYWBKFT PO Last administered on 10/29/19 11:01; Start 10/24/19 at 09:00 Non-Formulary Medication (Daptomycin ) 460 mg DAILY IV ; Start 10/24/19 at 09:00; Status UNV Duloxetine HCl (Cymbalta) 60 mg BID PO Last administered on 10/29/19 11:01; Start 10/23/19 at 21:00 Citalopram Hydrobromide (CeleXA) 40 mg DAILY PO Last administered on 10/29/19 11:01; Start 10/24/19 at 09:00 Non-Formulary Medication (Hydromorphone Hcl (Dilaudid)) 1 tab PRN Q4HRS PRN PO pain; Start 10/23/19 at 13:45; Status UNV Pantoprazole Sodium (Protonix) 40 mg QHS PO Last administered on 10/28/19at 21:47; Start 10/23/19 at 21:00 Triamterene/HCTZ (Maxzide 37.5/ 25mg) 2 tab DAILY PO Last administered on 10/29/19at 11:45; Start 10/24/19 at 09:00 Multivitamins (Thera M Plus) 1 tab DAILY PO Last administered on 10/29/19 11:01; Start 10/24/19 at 09:00 Ascorbic Acid (Vitamin C) 500 mg DAILY PO Last administered on 10/29/19 11:01; Start 10/24/19 at 09:00 Hydromorphone HCl (Dilaudid) 4 mg PRN Q4HRS PRN PO MODERATE PAIN Last administered on 10/23/19 20:25; Start 10/23/19 at 15:15 Lactobacillus Rhamnosus (Culturelle) 1 cap BID PO Last administered on 8/16/20at 11:01; Start 10/23/19 at 21:00 Hydromorphone HCl (Dilaudid) 8 mg PRN Q4HRS PRN PO SEVERE PAIN Last administered on 10/29/19at 11:00; Start 10/23/19 at 21:45 Lorazepam (Ativan Inj) 1 mg 1X ONCE IVP Last administered on 10/24/19at 11:25; Start 10/24/19 at 11:30; Stop 10/24/19 at 11:31; Status DC Sevoflurane (Ultane) 60 ml STK-MED ONCE IH ; Start 10/24/19 at 13:45; Stop 10/24/19 at 13:45; Status DC Propofol (Diprivan) 200 mg STK-MED ONCE IV ; Start 10/24/19 at 13:45; Stop 10/24/19 at 13:45; Status DC Ondansetron HCl (Zofran) 4 mg STK-MED ONCE .ROUTE ; Start 10/24/19 at 13:45; Stop 10/24/19 at 13:45; Status DC Dexamethasone Sodium Phosphate (Decadron) 4 mg STK-MED ONCE .ROUTE ; Start 10/24/19 at 13:45; Stop 10/24/19 at 13:46; Status DC Fentanyl Citrate (Fentanyl 2ml Vial) 100 mcg STK-MED ONCE .ROUTE ; Start 10/24/19 at 15:04; Stop 10/24/19 at 15:04; Status DC Midazolam HCl (Versed) 2 mg STK-MED ONCE .ROUTE ; Start 10/24/19 at 15:22; Stop 10/24/19 at 15:23; Status DC Vancomycin HCl (Vancomycin) 1 gm STK-MED ONCE .ROUTE Last administered on 10/24/19at 16:26; Start 10/24/19 at 15:30; Stop 10/24/19 at 15:30; Status DC Vancomycin HCl (Vancomycin) 1 gm STK-MED ONCE .ROUTE Last administered on 10/24/19at 16:26; Start 10/24/19 at 15:30; Stop 10/24/19 at 15:31; Status DC Vancomycin HCl (Vancomycin) 1 gm STK-MED ONCE .ROUTE Last administered on 10/24/19at 16:26; Start 10/24/19 at 15:30; Stop 10/24/19 at 15:31; Status DC Vancomycin HCl (Vancomycin) 1 gm STK-MED ONCE .ROUTE Last administered on 10/24/19at 16:26; Start 10/24/19 at 15:30; Stop 10/24/19 at 15:31; Status DC Hydralazine HCl (Apresoline Inj) 20 mg STK-MED ONCE .ROUTE ; Start 10/24/19 at 16:42; Stop 10/24/19 at 16:43; Status DC Fentanyl Citrate (Fentanyl 2ml Vial) 100 mcg STK-MED ONCE .ROUTE ; Start 10/24/19 at 16:44; Stop 10/24/19 at 16:44; Status DC Esmolol HCl (Brevibloc) 100 mg STK-MED ONCE IVP ; Start 10/24/19 at 17:13; Stop 10/24/19 at 17:13; Status DC Fentanyl Citrate (Fentanyl 2ml Vial) 100 mcg STK-MED ONCE .ROUTE ; Start 10/24/19 at 18:24; Stop 10/24/19 at 18:24; Status DC Fentanyl Citrate (Fentanyl 2ml Vial) 25 mcg PRN Q5MIN PRN IV MILD PAIN 1-3 Last administered on 10/24/19at 18:31; Start 10/24/19 at 18:30; Stop 10/25/19 at 18:29; Status DC Fentanyl Citrate (Fentanyl 2ml Vial) 50 mcg PRN Q5MIN PRN IV MODERATE TO SEVERE PAIN; Start 10/24/19 at 18:30; Stop 10/25/19 at 18:29; Status DC Morphine Sulfate (Morphine Sulfate) 1 mg PRN Q10MIN PRN IV SEVERE PAIN 7-10; Start 10/24/19 at 18:30; Stop 10/25/19 at 18:29; Status DC Ringer's Solution 1,000 ml @ 30 mls/hr Q24H IV Last administered on 10/24/19at 16:00; Start 10/24/19 at 18:25; Stop 10/25/19 at 06:24; Status DC Hydromorphone HCl (Dilaudid) 0.5 mg PRN Q10MIN PRN IV SEV PAIN, Second choice; Start 10/24/19 at 18:30; Stop 10/25/19 at 18:29; Status DC Prochlorperazine Edisylate (Compazine) 5 mg PACU PRN PRN IV NAUSEA, MRX1; Start 10/24/19 at 18:30; Stop 10/25/19 at 18:29; Status DC Zolpidem Tartrate (Ambien) 5 mg PRN QHS PRN PO INSOMNIA Last administered on 10/28/19at 21:56; Start 10/25/19 at 20:00 Meropenem 500 mg/ Sodium Chloride 50 ml @ 100 mls/hr Q6HRS IV Last administered on 10/26/19at 11:52; Start 10/26/19 at 12:00; Stop 10/26/19 at 12:09; Status DC Tigecycline 100 mg/Dextrose 100 ml @ 200 mls/hr 1X ONCE IV Last administered on 10/26/19at 13:19; Start 10/26/19 at 12:15; Stop 10/26/19 at 12:44; Status DC Tigecycline 50 mg/ Dextrose 50 ml @ 100 mls/hr Q12HR IV Last administered on 10/26/19at 21:00; Start 10/26/19 at 21:00; Stop 10/27/19 at 09:36; Status DC Tigecycline 50 mg/ Dextrose 50 ml @ 100 mls/hr Q12HR IV ; Start 10/27/19 at 21:00; Status Cancel Tigecycline 50 mg/ Dextrose 50 ml @ 100 mls/hr Q12HR IV Last administered on 10/29/19at 11:46; Start 10/27/19 at 21:00 Active Scripts Active Daptomycin 350 Mg Vial 460 Mg IV DAILY 30 Days Merrem (Meropenem) 500 Mg Vial 500 Mg IV Q6HRS 20 Days Dilaudid (Hydromorphone Hcl) 8 Mg Tablet 1 Tab PO PRN Q4HRS PRN MDD 6 Tablet(s) 14 Days Reported Maxzide 75 Mg-50 Mg Tablet (Triamterene/Hydrochlorothiazid) 1 Each Tablet 1 Tab PO DAILY Protonix (Pantoprazole Sodium) 20 Mg Tablet.dr 20 Mg PO HS Coreg (Carvedilol) 6.25 Mg Tablet 1 Tab PO BID Potassium Chloride (Potassium Chloride) 10 Meq Capsule.er 10 Meq PO UD Zetia (Ezetimibe) 10 Mg Tablet 1 Tab PO DAILY AM Vitamin D2 (Ergocalciferol (Vitamin D2)) 50,000 Unit Capsule 50,000 Unit PO QSU Lexapro (Escitalopram Oxalate) 20 Mg Tablet 40 Mg PO DAILY Cymbalta (Duloxetine Hcl) 60 Mg Capsule.dr 60 Mg PO BID Allergies Allergies: Coded Allergies: Sulfa (Sulfonamide Antibiotics) (Verified Allergy, Intermediate, Rash, Nausea and Vomiting, 07/25/19) cephalexin (Verified Allergy, Intermediate, RASH, HIVES, NAUSEA/VOMITING, 07/25/19) Can take amoxicillin gabapentin (Verified Allergy, Intermediate, RASH, ITCHING, 07/25/19) hydrocodone (Verified Allergy, Intermediate, Tolerates hydromorphone, 07/25/19) metformin (Verified Allergy, Intermediate, 07/25/19) oxymorphone (Verified Allergy, Intermediate, 07/25/19) Tolerates hydromorphone I S O L A T I O N *CONTACT* (Verified Allergy, Unknown, 10/27/19) CR-Acinetobacter baumanii/mrsa bupropion (Verified Adverse Reaction, Intermediate, "MAKES HER CRAZY", 07/25/19) oxycodone (Verified Adverse Reaction, Intermediate, Nausea and Vomiting, 07/25/19) rosuvastatin (Verified Adverse Reaction, Intermediate, MUSCLE ACHING, 07/25/19) Physical Exam General: Alert, Oriented X3, Cooperative, No acute distress HEENT: Atraumatic, PERRLA Lungs: Clear to auscultation Heart: Regular rate, Normal S1, Normal S2, No murmurs Abdomen: Normal bowel sounds Skin: No rashes Neuro: Normal speech, Sensation intact, Cranial nerves 3-12 NL MUSCULOSKELETAL: Other (right knee in a large dressing -- patient requested I not take this down due to pain ) Vitals VITALS Vital Signs Date Time Temp Pulse Resp B/P (MAP) Pulse Ox O2 Delivery O2 Flow Rate FiO2 10/29/19 11:02 75 145/55 10/29/19 11:00 97.5 16 100 Room Air 97.5 10/29/19 08:30 2.0 Labs Labs Laboratory Tests Test 10/29/19 06:10 White Blood Count 8.4 x10^3/uL (4.0-11.0) Red Blood Count 3.56 x10^6/uL (3.50-5.40) Hemoglobin 9.3 g/dL (12.0-15.5) Hematocrit 28.7 % (36.0-47.0) Mean Corpuscular Volume 81 fL (79-100) Mean Corpuscular Hemoglobin 26 pg (25-35) Mean Corpuscular Hemoglobin Concent 32 g/dL (31-37) Red Cell Distribution Width 14.8 % (11.5-14.5) Platelet Count 410 x10^3/uL (140-400) Neutrophils (%) (Auto) 67 % (31-73) Lymphocytes (%) (Auto) 22 % (24-48) Monocytes (%) (Auto) 6 % (0-9) Eosinophils (%) (Auto) 4 % (0-3) Basophils (%) (Auto) 1 % (0-3) Neutrophils # (Auto) 5.6 x10^3/uL (1.8-7.7) Lymphocytes # (Auto) 1.9 x10^3/uL (1.0-4.8) Monocytes # (Auto) 0.5 x10^3/uL (0.0-1.1) Eosinophils # (Auto) 0.4 x10^3/uL (0.0-0.7) Basophils # (Auto) 0.1 x10^3/uL (0.0-0.2) Sodium Level 138 mmol/L (136-145) Potassium Level 3.2 mmol/L (3.5-5.1) Chloride Level 99 mmol/L (98-107) Carbon Dioxide Level 36 mmol/L (21-32) Anion Gap 3 (6-14) Blood Urea Nitrogen 15 mg/dL (7-20) Creatinine 0.8 mg/dL (0.6-1.0) Estimated GFR (Cockcroft-Gault) 70.9 BUN/Creatinine Ratio 19 (6-20) Glucose Level 98 mg/dL (70-99) Calcium Level 8.4 mg/dL (8.5-10.1) Total Bilirubin 0.3 mg/dL (0.2-1.0) Aspartate Amino Transf (AST/SGOT) 28 U/L (15-37) Alanine Aminotransferase (ALT/SGPT) 68 U/L (14-59) Alkaline Phosphatase 79 U/L (46-116) Total Protein 5.4 g/dL (6.4-8.2) Albumin 2.0 g/dL (3.4-5.0) Albumin/Globulin Ratio 0.6 (1.0-1.7) Laboratory Tests Test 10/29/19 06:10 White Blood Count 8.4 x10^3/uL (4.0-11.0) Red Blood Count 3.56 x10^6/uL (3.50-5.40) Hemoglobin 9.3 g/dL (12.0-15.5) Hematocrit 28.7 % (36.0-47.0) Mean Corpuscular Volume 81 fL (79-100) Mean Corpuscular Hemoglobin 26 pg (25-35) Mean Corpuscular Hemoglobin Concent 32 g/dL (31-37) Red Cell Distribution Width 14.8 % (11.5-14.5) Platelet Count 410 x10^3/uL (140-400) Neutrophils (%) (Auto) 67 % (31-73) Lymphocytes (%) (Auto) 22 % (24-48) Monocytes (%) (Auto) 6 % (0-9) Eosinophils (%) (Auto) 4 % (0-3) Basophils (%) (Auto) 1 % (0-3) Neutrophils # (Auto) 5.6 x10^3/uL (1.8-7.7) Lymphocytes # (Auto) 1.9 x10^3/uL (1.0-4.8) Monocytes # (Auto) 0.5 x10^3/uL (0.0-1.1) Eosinophils # (Auto) 0.4 x10^3/uL (0.0-0.7) Basophils # (Auto) 0.1 x10^3/uL (0.0-0.2) Sodium Level 138 mmol/L (136-145) Potassium Level 3.2 mmol/L (3.5-5.1) Chloride Level 99 mmol/L (98-107) Carbon Dioxide Level 36 mmol/L (21-32) Anion Gap 3 (6-14) Blood Urea Nitrogen 15 mg/dL (7-20) Creatinine 0.8 mg/dL (0.6-1.0) Estimated GFR (Cockcroft-Gault) 70.9 BUN/Creatinine Ratio 19 (6-20) Glucose Level 98 mg/dL (70-99) Calcium Level 8.4 mg/dL (8.5-10.1) Total Bilirubin 0.3 mg/dL (0.2-1.0) Aspartate Amino Transf (AST/SGOT) 28 U/L (15-37) Alanine Aminotransferase (ALT/SGPT) 68 U/L (14-59) Alkaline Phosphatase 79 U/L (46-116) Total Protein 5.4 g/dL (6.4-8.2) Albumin 2.0 g/dL (3.4-5.0) Albumin/Globulin Ratio 0.6 (1.0-1.7) Images Images A knee x -ray from August 18 shows removal of hardware and some cement in knee joint I believe Assessment/Plan Assessment/Plan 64 y/o woman with right knee replacement infection -- hardware removed, infection remains with multiple significant bacteria She wants to proceed with RIGHT above knee amputation and apparently at her children's insistence would like a vascular surgeon to perform the AKA. We are happy to do this for her if it is her wish. I was honest with her that I do not have any special technique to minimize her pain / reduce any risk of post-operative complication Given the active infection I would probably close the fascia and then put a wound VAC on the sub-q tissue without primary skin closure and she is OK with this. Will have to look at the schedule tomorrow (Wednesday) just in case and see if someone is available / when there is OR time. AMINATA MONTEMAYOR MD Oct 29, 2019 13:43
[2019-10-29 15:00] VITALS: BP 115/47
[2019-10-29 19:00] VITALS: BP 110/47
[2019-10-29] MEDS: PANTOPRAZOLE 40 MG TABLET.DR. PO SCH (21:34)
[2019-10-29] MEDS: ENOXAPARIN 40 MG/0.4 ML SYRINGE. SQ SCH (21:35)
[2019-10-29] MEDS: ZOLPIDEM 5 MG TABLET. PO PRN (21:39)
[2019-10-29] MEDS: DAPTOmycin (GENERIC) IVPB 480 MG in IV NORMAL SALINE 50ML 50 ML IV SCH (22:45)
[2019-10-29 23:00] VITALS: BP 107/50
[2019-10-30] VITALS (12 sets, daily range): BP systolic 128–172; BP diastolic 55–87
[2019-10-30] MEDS: POTASSIUM CHLORIDE 10 MEQ TABLET.ER. PO SCH (08:00)
[2019-10-30] MEDS: CARVEDILOL 6.25 MG TABLET. PO SCH ×2 (08:00→17:00)
[2019-10-30] MEDS: TIGECYCLINE 50 MG in IV DEXTROSE 5% 50 ML IV SCH ×2 (08:41→22:01)
[2019-10-30] MEDS: HYDROmorphone 4 MG TABLET PO PRN ×2 (08:47→22:01)
[2019-10-30] MEDS: MULTIVITAMIN with MINERAL TABLET. PO SCH (09:00)
[2019-10-30] MEDS: ASCORBIC ACID 500 MG TABLET PO SCH (09:00)
[2019-10-30] MEDS: CITALOPRAM 20 MG TABLET. PO SCH (09:00)
[2019-10-30] MEDS: LACTOBACILLUS RHAMNOSUS GG 1 CAPSULE. PO SCH ×2 (09:00→22:00)
[2019-10-30] MEDS: TRIAMTERENE/HCTZ 37.5/25MG TABLET. PO SCH (09:00)
[2019-10-30] MEDS: EZETIMIBE 10 MG TABLET. PO SCH (09:00)
[2019-10-30] MEDS: DULoxetine HCL 30 MG CAPSULE.DR PO SCH ×2 (09:00→22:00)
--- NOTE | 2019-10-30 09:33 | PDOC ---
JOANNE WOLFF HIP HOP ARTIST 10/30/19 0933: PROGRESS NOTES Date of Service DATE: 10/30/19 TIME: 09:22 Subjective Subjective Patient seen and examined in room. Patient complains of moderate to severe pain right knee. Patient anxious regarding surgery, discussed options and will let patient know we were able to get her on the schedule today. BRYAN pending. Objective Objective Vital Signs Date Time Temp Pulse Resp B/P (MAP) Pulse Ox O2 Delivery O2 Flow Rate FiO2 10/30/19 07:00 96.4 77 18 128/55 (79) 95 Room Air 96.4 10/29/19 20:10 2.0 Intake and Output 10/30/19 07:00 Intake Total 1290 ml Output Total 300 ml Balance 990 ml Intake Oral 240 ml IV Total 1050 ml Output Urine Total 300 ml # Voids 1 Physical Exam Physical Exam Awake and alert VSS, afebrile Right leg with dry dressing, partially removed, there is an incision with nylon suture intact, skin intact, no erythema, with gauze distal incision that is satu rated, she started to complain of pain and did not removed to visualize distal incision. Moderate to severe swelling in knee and thigh. Foot warm, faintly palpable DP Assessment Assessment Problems Medical Problems: (1) Fever Status: Acute (2) Hypokalemia Status: Acute (3) Right knee pain Status: Acute (4) Sepsis Status: Acute Plan Plan of Care 64 y/o woman with right knee replacement infection -- hardware removed, infection remains with multiple significant bacteria She wants to proceed with RIGHT above knee amputation and apparently at her children's insistence would like a vascular surgeon to perform the AKA. Recommend right above-knee amputation with closure of fascial layer the wound VAC placement. Hopefully will be able to schedule later today. Patient to remain NPO until decision made. BRYAN recommended by ID, prefer this be performed prior to amputation. Continue local wound care and abx per ID Comment Review of Relevant I have reviewed the following items dieter (where applicable) has been applied. Labs Laboratory Tests Test 10/29/19 06:10 White Blood Count 8.4 x10^3/uL (4.0-11.0) Red Blood Count 3.56 x10^6/uL (3.50-5.40) Hemoglobin 9.3 g/dL (12.0-15.5) Hematocrit 28.7 % (36.0-47.0) Mean Corpuscular Volume 81 fL (79-100) Mean Corpuscular Hemoglobin 26 pg (25-35) Mean Corpuscular Hemoglobin Concent 32 g/dL (31-37) Red Cell Distribution Width 14.8 % (11.5-14.5) Platelet Count 410 x10^3/uL (140-400) Neutrophils (%) (Auto) 67 % (31-73) Lymphocytes (%) (Auto) 22 % (24-48) Monocytes (%) (Auto) 6 % (0-9) Eosinophils (%) (Auto) 4 % (0-3) Basophils (%) (Auto) 1 % (0-3) Neutrophils # (Auto) 5.6 x10^3/uL (1.8-7.7) Lymphocytes # (Auto) 1.9 x10^3/uL (1.0-4.8) Monocytes # (Auto) 0.5 x10^3/uL (0.0-1.1) Eosinophils # (Auto) 0.4 x10^3/uL (0.0-0.7) Basophils # (Auto) 0.1 x10^3/uL (0.0-0.2) Sodium Level 138 mmol/L (136-145) Potassium Level 3.2 mmol/L (3.5-5.1) Chloride Level 99 mmol/L (98-107) Carbon Dioxide Level 36 mmol/L (21-32) Anion Gap 3 (6-14) Blood Urea Nitrogen 15 mg/dL (7-20) Creatinine 0.8 mg/dL (0.6-1.0) Estimated GFR (Cockcroft-Gault) 70.9 BUN/Creatinine Ratio 19 (6-20) Glucose Level 98 mg/dL (70-99) Calcium Level 8.4 mg/dL (8.5-10.1) Total Bilirubin 0.3 mg/dL (0.2-1.0) Aspartate Amino Transf (AST/SGOT) 28 U/L (15-37) Alanine Aminotransferase (ALT/SGPT) 68 U/L (14-59) Alkaline Phosphatase 79 U/L (46-116) Total Protein 5.4 g/dL (6.4-8.2) Albumin 2.0 g/dL (3.4-5.0) Albumin/Globulin Ratio 0.6 (1.0-1.7) Microbiology 10/27/19 Blood Culture - Preliminary, Resulted NO GROWTH AFTER 3 DAYS 10/24/19 Gram Stain - Final, Resulted 10/24/19 Aerobic and Anaerobic Culture - Preliminary, Resulted 10/23/19 Gram Stain - Final, Complete 10/23/19 Aerobic Culture - Final, Complete 10/23/19 Antimicrobic Susceptibility - Final, Complete Medications Current Medications Sodium Chloride 1,000 ml @ 1,000 mls/hr 1X ONCE IV Last administered on 10/22/19at 18:59; Start 10/22/19 at 18:45; Stop 10/22/19 at 19:44; Status DC Hydromorphone HCl (Dilaudid) 1 mg 1X ONCE IV Last administered on 10/22/19at 18:57; Start 10/22/19 at 18:45; Stop 10/22/19 at 18:49; Status DC Acetaminophen (Tylenol) 650 mg 1X ONCE PO Last administered on 10/22/19at 18:56; Start 10/22/19 at 18:45; Stop 10/22/19 at 18:49; Status DC Potassium Chloride (Klor-Con) 60 meq 1X ONCE PO Last administered on 10/22/19at 20:06; Start 10/22/19 at 19:45; Stop 10/22/19 at 19:46; Status DC Potassium Chloride/Water 100 ml @ 100 mls/hr Q1H IV Last administered on 10/23/19at 00:53; Start 10/22/19 at 19:50; Stop 10/22/19 at 23:49; Status DC Daptomycin 480 mg/ Sodium Chloride 50 ml @ 100 mls/hr Q24H IV Last administered on 10/29/19at 22:45; Start 10/22/19 at 20:30 Piperacillin Sod/ Tazobactam Sod 3.375 gm/Sodium Chloride 50 ml @ 100 mls/hr 1X ONCE IV Last administered on 10/22/19at 20:06; Start 10/22/19 at 20:00; Stop 10/22/19 at 20:29; Status DC Sodium Chloride (Normal Saline Flush) 3 ml QSHIFT PRN IV AFTER MEDS AND BLOOD DRAWS; Start 10/22/19 at 21:15 Sodium Chloride 1,000 ml @ 70 mls/hr [id number] IV Last administered on 10/29/19at 17:28; Start 10/22/19 at 21:30 Ondansetron HCl (Zofran) 4 mg PRN Q4HRS PRN IV NAUSEA/VOMITING; Start 10/22/19 at 21:15 Acetaminophen (Tylenol) 650 mg PRN Q4HRS PRN PO TEMP OVER 100.4F OR MILD PAIN; Start 10/22/19 at 21:15 Clonidine HCl (Catapres) 0.1 mg PRN Q6HRS PRN PO SBP>160 OR DBP>90; Start 10/22/19 at 21:15 Docusate Sodium (Colace) 100 mg PRN BID PRN PO HARD STOOLS; Start 10/22/19 at 21:15 Albuterol Sulfate (Ventolin Neb Soln) 2.5 mg PRN Q4HRS PRN NEB SHORTNESS OF BREATH; Start 10/22/19 at 21:15 Guaifenesin (Robitussin) 200 mg PRN Q4HRS PRN PO COUGH; Start 10/22/19 at 21:15 Hydromorphone HCl (Dilaudid) 0.5 mg PRN Q2HRS PRN IV MODERATE PAIN Last administered on 10/22/19at 23:49; Start 10/22/19 at 21:15; Stop 10/23/19 at 15:11; Status DC Enoxaparin Sodium (Lovenox 40mg Syringe) 40 mg Q24H SQ Last administered on 10/28/19at 21:47; Start 10/22/19 at 22:00 Potassium Chloride (Klor-Con) 40 meq 1X ONCE PO ; Start 10/22/19 at 21:30; Stop 10/22/19 at 21:40; Status DC Potassium Chloride (Klor-Con) 20 meq 1X ONCE PO ; Start 10/22/19 at 21:30; Stop 10/22/19 at 21:40; Status DC Potassium Chloride (Klor-Con) 20 meq DAILYWBKFT PO Last administered on 10/23/19at 07:53; Start 10/23/19 at 08:00; Stop 10/23/19 at 15:09; Status DC Hydromorphone HCl (Dilaudid) 1 mg PRN Q4HRS PRN IV SEVERE PAIN Last administered on 10/27/19at 17:54; Start 10/22/19 at 21:15 Piperacillin Sod/ Tazobactam Sod 3.375 gm/Sodium Chloride 50 ml @ 100 mls/hr Q6HRS IV Last administered on 10/26/19at 05:30; Start 10/23/19 at 00:00; Stop 10/26/19 at 10:44; Status DC Carvedilol (Coreg) 6.25 mg BIDWMEALS PO Last administered on 10/29/19at 17:26; Start 10/23/19 at 17:00 EZETIMIBE (Zetia) 10 mg DAILY PO Last administered on 10/29/19 11:01; Start 10/23/19 at 15:00 Potassium Chloride (Klor-Con) 10 meq DAILYWBKFT PO Last administered on 10/29/19at 11:01; Start 10/24/19 at 09:00 Non-Formulary Medication (Daptomycin ) 460 mg DAILY IV ; Start 10/24/19 at 09:00; Status UNV Duloxetine HCl (Cymbalta) 60 mg BID PO Last administered on 10/29/19at 21:34; Start 10/23/19 at 21:00 Citalopram Hydrobromide (CeleXA) 40 mg DAILY PO Last administered on 10/29/19at 11:01; Start 10/24/19 at 09:00 Non-Formulary Medication (Hydromorphone Hcl (Dilaudid)) 1 tab PRN Q4HRS PRN PO pain; Start 10/23/19 at 13:45; Status UNV Pantoprazole Sodium (Protonix) 40 mg QHS PO Last administered on 10/29/19at 21:34; Start 10/23/19 at 21:00 Triamterene/HCTZ (Maxzide 37.5/ 25mg) 2 tab DAILY PO Last administered on 10/29/19at 11:45; Start 10/24/19 at 09:00 Multivitamins (Thera M Plus) 1 tab DAILY PO Last administered on 10/29/19 11:01; Start 10/24/19 at 09:00 Ascorbic Acid (Vitamin C) 500 mg DAILY PO Last administered on 10/29/19at 11:01; Start 10/24/19 at 09:00 Hydromorphone HCl (Dilaudid) 4 mg PRN Q4HRS PRN PO MODERATE PAIN Last administered on 10/23/19at 20:25; Start 10/23/19 at 15:15 Lactobacillus Rhamnosus (Culturelle) 1 cap BID PO Last administered on 10/29/19at 21:33; Start 10/23/19 at 21:00 Hydromorphone HCl (Dilaudid) 8 mg PRN Q4HRS PRN PO SEVERE PAIN Last administered on 10/30/19at 08:47; Start 10/23/19 at 21:45 Lorazepam (Ativan Inj) 1 mg 1X ONCE IVP Last administered on 10/24/19at 11:25; Start 10/24/19 at 11:30; Stop 10/24/19 at 11:31; Status DC Sevoflurane (Ultane) 60 ml STK-MED ONCE IH ; Start 10/24/19 at 13:45; Stop 10/24/19 at 13:45; Status DC Propofol (Diprivan) 200 mg STK-MED ONCE IV ; Start 10/24/19 at 13:45; Stop 10/24/19 at 13:45; Status DC Ondansetron HCl (Zofran) 4 mg STK-MED ONCE .ROUTE ; Start 10/24/19 at 13:45; Stop 10/24/19 at 13:45; Status DC Dexamethasone Sodium Phosphate (Decadron) 4 mg STK-MED ONCE .ROUTE ; Start 10/24/19 at 13:45; Stop 10/24/19 at 13:46; Status DC Fentanyl Citrate (Fentanyl 2ml Vial) 100 mcg STK-MED ONCE .ROUTE ; Start 10/24/19 at 15:04; Stop 10/24/19 at 15:04; Status DC Midazolam HCl (Versed) 2 mg STK-MED ONCE .ROUTE ; Start 10/24/19 at 15:22; Stop 10/24/19 at 15:23; Status DC Vancomycin HCl (Vancomycin) 1 gm STK-MED ONCE .ROUTE Last administered on 10/24/19at 16:26; Start 10/24/19 at 15:30; Stop 10/24/19 at 15:30; Status DC Vancomycin HCl (Vancomycin) 1 gm STK-MED ONCE .ROUTE Last administered on 10/23at 16:26; Start 10/24/19 at 15:30; Stop 10/24/19 at 15:31; Status DC Vancomycin HCl (Vancomycin) 1 gm STK-MED ONCE .ROUTE Last administered on 10/24/19at 16:26; Start 10/24/19 at 15:30; Stop 10/24/19 at 15:31; Status DC Vancomycin HCl (Vancomycin) 1 gm STK-MED ONCE .ROUTE Last administered on 10/24/19at 16:26; Start 10/24/19 at 15:30; Stop 10/24/19 at 15:31; Status DC Hydralazine HCl (Apresoline Inj) 20 mg STK-MED ONCE .ROUTE ; Start 10/24/19 at 16:42; Stop 10/24/19 at 16:43; Status DC Fentanyl Citrate (Fentanyl 2ml Vial) 100 mcg STK-MED ONCE .ROUTE ; Start 10/24/19 at 16:44; Stop 10/24/19 at 16:44; Status DC Esmolol HCl (Brevibloc) 100 mg STK-MED ONCE IVP ; Start 10/24/19 at 17:13; Stop 10/24/19 at 17:13; Status DC Fentanyl Citrate (Fentanyl 2ml Vial) 100 mcg STK-MED ONCE .ROUTE ; Start 10/24/19 at 18:24; Stop 10/24/19 at 18:24; Status DC Fentanyl Citrate (Fentanyl 2ml Vial) 25 mcg PRN Q5MIN PRN IV MILD PAIN 1-3 Last administered on 10/24/19at 18:31; Start 10/24/19 at 18:30; Stop 10/25/19 at 18:29; Status DC Fentanyl Citrate (Fentanyl 2ml Vial) 50 mcg PRN Q5MIN PRN IV MODERATE TO SEVERE PAIN; Start 10/24/19 at 18:30; Stop 10/25/19 at 18:29; Status DC Morphine Sulfate (Morphine Sulfate) 1 mg PRN Q10MIN PRN IV SEVERE PAIN 7-10; Start 10/24/19 at 18:30; Stop 10/25/19 at 18:29; Status DC Ringer's Solution 1,000 ml @ 30 mls/hr Q24H IV Last administered on 10/24/19at 16:00; Start 10/24/19 at 18:25; Stop 10/25/19 at 06:24; Status DC Hydromorphone HCl (Dilaudid) 0.5 mg PRN Q10MIN PRN IV SEV PAIN, Second choice; Start 10/24/19 at 18:30; Stop 10/25/19 at 18:29; Status DC Prochlorperazine Edisylate (Compazine) 5 mg PACU PRN PRN IV NAUSEA, MRX1; Start 10/24/19 at 18:30; Stop 10/25/19 at 18:29; Status DC Zolpidem Tartrate (Ambien) 5 mg PRN QHS PRN PO INSOMNIA Last administered on 10/29/19at 21:39; Start 10/25/19 at 20:00 Meropenem 500 mg/ Sodium Chloride 50 ml @ 100 mls/hr Q6HRS IV Last administered on 10/26/19at 11:52; Start 10/26/19 at 12:00; Stop 10/26/19 at 12:09; Status DC Tigecycline 100 mg/Dextrose 100 ml @ 200 mls/hr 1X ONCE IV Last administered on 10/26/19at 13:19; Start 10/26/19 at 12:15; Stop 10/26/19 at 12:44; Status DC Tigecycline 50 mg/ Dextrose 50 ml @ 100 mls/hr Q12HR IV Last administered on 10/26/19at 21:00; Start 10/26/19 at 21:00; Stop 10/27/19 at 09:36; Status DC Tigecycline 50 mg/ Dextrose 50 ml @ 100 mls/hr Q12HR IV ; Start 10/27/19 at 21:00; Status Cancel Tigecycline 50 mg/ Dextrose 50 ml @ 100 mls/hr Q12HR IV Last administered on 10/30/19at 08:41; Start 10/27/19 at 21:00 Active Scripts Active Daptomycin 350 Mg Vial 460 Mg IV DAILY 30 Days Merrem (Meropenem) 500 Mg Vial 500 Mg IV Q6HRS 20 Days Dilaudid (Hydromorphone Hcl) 8 Mg Tablet 1 Tab PO PRN Q4HRS PRN MDD 6 Tablet(s) 14 Days Reported Maxzide 75 Mg-50 Mg Tablet (Triamterene/Hydrochlorothiazid) 1 Each Tablet 1 Tab PO DAILY Protonix (Pantoprazole Sodium) 20 Mg Tablet.dr 20 Mg PO HS Coreg (Carvedilol) 6.25 Mg Tablet 1 Tab PO BID Potassium Chloride (Potassium Chloride) 10 Meq Capsule.er 10 Meq PO UD Zetia (Ezetimibe) 10 Mg Tablet 1 Tab PO DAILY AM Vitamin D2 (Ergocalciferol (Vitamin D2)) 50,000 Unit Capsule 50,000 Unit PO QSU Lexapro (Escitalopram Oxalate) 20 Mg Tablet 40 Mg PO DAILY Cymbalta (Duloxetine Hcl) 60 Mg Capsule.dr 60 Mg PO BID Vitals/I & O Vital Sign - Last 24 Hours 10/29/19 10/29/19 10/29/19 10/29/19 11:00 11:02 15:00 17:26 Temp 97.5 97.7 97.5 97.7 Pulse 73 75 68 68 Resp 16 16 B/P (MAP) 160/58 (92) 145/55 115/47 (69) 115/47 Pulse Ox 100 100 O2 Delivery Room Air Room Air 10/29/19 10/29/19 10/29/19 10/30/19 19:00 20:10 23:00 03:40 Temp 97.9 97.7 97.4 97.9 97.7 97.4 Pulse 76 68 82 Resp 16 18 18 B/P (MAP) 110/47 (68) 107/50 (69) 139/61 (87) Pulse Ox 99 100 96 O2 Delivery Room Air Nasal Cannula Room Air Room Air O2 Flow Rate 2.0 10/30/19 07:00 Temp 96.4 96.4 Pulse 77 Resp 18 B/P (MAP) 128/55 (79) Pulse Ox 95 O2 Delivery Room Air Intake and Output 10/29/19 10/29/19 10/30/19 15:00 23:00 07:00 Intake Total 50 ml 1240 ml Output Total 300 ml Balance 50 ml 1240 ml -300 ml Justicifation of Admission Dx: Justifications for Admission: Justification of Admission Dx: N/A Sepsis: Infection LEE ANN SCHULTZ MD 10/30/19 1324: PROGRESS NOTES Plan Plan of Care Addendum: (10/30/2019) She has an infected knee that has been replaced with an antibiotic spacer. She has elected to proceed with primary proximal amputation. She had an antibiotic spacer placed on Wednesday by Dr. De La Cruz. She has a dressing in place on the right knee and lower leg. The anterior knee incision is intact. I discussed the increased complexity of the right above knee amputation due to antibiotic spacer. I feel that it would be best for Dr. De La Cruz (or other Othropedic Surgeon) be the one to do the right above knee amputation. I reiterated to her that Dr. De La Cruz would be the best person for doing her amput ation. She acknowledged. I discussed with Dr. De La Cruz who was agreeable to proceed if patient is still agreeable. Would be happy to discuss with her family if they have questions. JOANNE WOLFF APRN Oct 30, 2019 09:33 LEE ANN SCHULTZ MD Oct 30, 2019 13:24
--- NOTE | 2019-10-30 09:45 | PDOC ---
[facility] PROGRESS NOTE Date of Service DOS: DATE: 10/30/19 TIME: 09:43 Chief Complaint Chief Complaint Irrigation debridement of right knee with removal existing antibiotic spacer extensive debridement and fashioning of rigid antibiotic spacer and placement Cultures positive STAPHYLOCOCCUS AUREUS AND XMDROACINETOBACTER BAU/NOS GROUP( R TO MERREM, MINOCYCLINE, Unasyn , Bactrim) acute on ongoing knee pain, knee infection sepsis right knee joint infection s/p replacement, with spacer, obesity, BMI 38 , severe protein-caloric malnutrition htn depression d/w rn ID FOLLOWING IV DAPTOMYCIN CONT VAC for her to try to avoid any accumulation of fluid to avoid the swelling and pain that she had experienced previously History of Present Illness History of Present Illness cont abx, ID consulted she feels a little better, has a high req. for pain meds Amenable to right AKA, plan for this based on OR timing. BRYAN can be performed any time. She has pain that is so severe she continues to black out regularly. No chest pain or SOB. Vitals/I&O Vitals/I&O: Vital Signs Date Time Temp Pulse Resp B/P (MAP) Pulse Ox O2 Delivery O2 Flow Rate FiO2 10/30/19 07:00 96.4 77 18 128/55 (79) 95 Room Air 96.4 10/29/19 20:10 2.0 I & O 10/29/19 10/29/19 10/30/19 15:00 23:00 07:00 Intake Total 50 ml 1240 ml Output Total 300 ml Balance 50 ml 1240 ml -300 ml Physical Exam Physical Exam: GENERAL: Propped up in bed, alert, relaxed appearance HEENT: Oral mucosa moist. NECK: Supple LUNGS: Clear bilaterally. No wheezing. HEART: S1, S2. No gallops or murmurs. ABDOMEN: Soft, obese. Bowel sounds present, nontender, nondistended. EXTREMITIES: Right knee bandaged. NEUROLOGIC: Alert and oriented x 3, grossly nonfocal. PSYCHIATRIC: Cooperative, appropriate mood and affect DERMATOLOGIC: Warm, dry. No generalized rash. PIV looks clean General: Alert, Oriented X3, Cooperative, No acute distress Heart: Regular rate, Normal S1, Normal S2, No murmurs Lungs: Clear Abdomen: Normal bowel sounds Extremities: No clubbing, No cyanosis, Other Skin: No significant lesion, Other (irritation and drainage at knee) Assessment and Plan Assessmemt and Plan Problems Medical Problems: (1) Fever Status: Acute (2) Hypokalemia Status: Acute (3) Right knee pain Status: Acute (4) Sepsis Status: Acute Comment Review of Relevant I have reviewed the following items dieter (where applicable) has been applied. Justicifation of Admission Dx: Justifications for Admission: Justification of Admission Dx: N/A Sepsis: Infection ZACHARIAH LOPEZ MD Oct 30, 2019 09:45
[2019-10-30] MEDS: IV NORMAL SALINE 1000ML BAG 1,000 ML IV SCH (10:33)
--- NOTE | 2019-10-30 12:07 | PDOC ---
Infectious Disease Note Subjective Subjective Continues to want an amputation - scheduled for today Ongoing right knee pain Denies fever/chills/aches 2L O2 ROS ROS o/w neg Vital Sign Vital Signs Vital Signs Date Time Temp Pulse Resp B/P (MAP) Pulse Ox O2 Delivery O2 Flow Rate FiO2 10/30/19 11:00 97.9 82 18 136/63 (87) 100 Room Air 97.9 10/29/19 20:10 2.0 Physical Exam PHYSICAL EXAM GENERAL: Propped up in bed, alert, relaxed appearance HEENT: Oral mucosa moist. NECK: Supple LUNGS: Clear bilaterally. No wheezing. HEART: S1, S2. No gallops or murmurs. ABDOMEN: Soft, obese. Bowel sounds present, nontender, nondistended. EXTREMITIES: Right knee bandaged. NEUROLOGIC: Alert and oriented x 3, grossly nonfocal. PSYCHIATRIC: Cooperative, appropriate mood and affect DERMATOLOGIC: Warm, dry. No generalized rash. PIV looks clean Labs Micro Microbiology 10/27/19 Blood Culture - Preliminary, Resulted NO GROWTH AFTER 3 DAYS 10/24/19 Gram Stain - Final, Complete 10/24/19 Aerobic and Anaerobic Culture - Final, Complete 10/23/19 Gram Stain - Final, Complete 10/23/19 Aerobic Culture - Final, Complete 10/23/19 Antimicrobic Susceptibility - Final, Complete Objective Assessment Very complicated case MRSA bacteremia, POA (4 out of 4 bottles) 10/22/2019 source right knee infection. -repeat BC 10/23, 10/25 and 10/26 neg to date Right knee infection with drainage from last surgery with wound vac -Oct 23 2019 Cultures positive for MRSA AND XMDRO ACINETOBACTER BAU/NOS GROUP - Oct 23 cultures not reported yet,pending ,d/w micro today -On Oct 24, 2019 s/p I&D with removal of existing antibiotic spacer, extensive debridement and fashioning of rigid antibiotic spacer and placement -Operative findings same with superficial cloudy drainage, no gross evidence of deep infection or osteomyelitis. 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 -Status post synovial aspirate at [facility] October 13, 2019. Positive for acinetobacter bau (Unasyn-S) and VRE (also resistent to ampicillin, tetra, Dapto and intermediate to linazolid) She was initially scheduled to have a revision/placement of abx spacer on Dec [address] Persaud -08/15/2019 s/p removal of right knee joint implant and plate and screw hardware with debridement and placement of nonarticulating antibiotic spacer, cultures, s/p I and D with hematoma evacuation and revision of antibiotic spacer. Cultures negative -07/25/2019 status post I and D, right knee with poly exchange and extensive mechanism repair done. -07/25/2019, intraoperative cultures positive for Corynebacterium species, sensitive to meropenem and daptomycin. Treated through September 26, 2019 H/o Right TKA 08/25/2016 History of renal cancer, status post left nephrectomy with mild renal insufficiency. Diabetes mellitus. Hypertension. Obesity. Gastroesophageal reflux disease. ALLERGIES TO SULFA, CEPHALEXIN, has tolerated amoxicillin. Protein-calorie malnutrition. Generalized debility Plan Plan of Care Awaiting amputation today - BRYAN can be done afterward - its important to remove source of infection Micro data from [facility] reviewed. Continue daptomycin and tigecycline Awaiting eravacycline and tigecycline susceptibility for XMDRO Acinetobacter Unfortunately outcome may not be optimal due to 3 multidrug-resistant organism bone infection with MRSA, XMDRO Acinetobacter and XMDRO VRE. Patient is requiring wound VAC for persistent right knee drainage, currently off Risk of limb loss despite antibiotic therapy due to MDRO infections Remains at risk of other comorbidities including distant metastatic infection from MRSA bacteremia Monitor for antimicrobial toxicities. Follow-up repeat blood cultures, from 10/23 negative so far Monitor labs Wound care as directed Await BRYAN Contact isolation for MRSA & XMDROs D/w nursing MARIA INES ZARAGOZA MD Oct 30, 2019 12:07
[2019-10-30] MEDS ORDERED: DEXAMETHASONE SOD PHOS 4 MG/ML VIAL ONE ×2 (12:11→16:01)
[2019-10-30] MEDS ORDERED: PROPOFOL 10 MG/ML (20ML) VIAL. IV ONE ×2 (12:11→16:01)
[2019-10-30] MEDS ORDERED: ONDANSETRON PF 4 MG/2 ML VIAL. ONE ×2 (12:11→16:01)
[2019-10-30] MEDS ORDERED: SUCCINYLCHOLINE 200 MG/10 ML VIAL. ONE (12:11)
[2019-10-30] MEDS ORDERED: ROCURONIUM 50 MG/5 ML VIAL. ONE (12:11)
[2019-10-30] MEDS ORDERED: LIDOCAINE 2% PF 5 ML VIAL. ONE ×2 (12:11→16:01)
[2019-10-30] MEDS ORDERED: FAMOTIDINE 20 MG/2 ML VIAL ONE ×2 (12:12→16:01)
[2019-10-30] MEDS ORDERED: fentaNYL PF VIAL 100 MCG/2 ML VIAL ONE ×2 (12:16→20:08)
[2019-10-30] MEDS: HYDROmorphone 2 MG/ML VIAL IV PRN (13:53)
[2019-10-30] MEDS ORDERED: BUPIVACAINE-EPI 0.25%-1:200000 MPF 30 ML VIAL. ONE (15:39)
[2019-10-30] MEDS ORDERED: SEVOFLURANE > 120 MINUTES. IH ONE (16:01)
[2019-10-30] MEDS ORDERED: ALBUMIN HUMAN 5% 500 ML IV ONE (16:54)
[2019-10-30] MEDS ORDERED: fentaNYL PF VIAL 250 MCG/5 ML VIAL ONE (17:16)
[2019-10-30] MEDS ORDERED: METOPROLOL TARTRATE 5 MG/5 ML VIAL. IVP PRN (19:45)
[2019-10-30] MEDS: fentaNYL PF VIAL 100 MCG/2 ML VIAL IV PRN ×2 (20:10→20:31)
[2019-10-30] MEDS: DAPTOmycin (GENERIC) IVPB 480 MG in IV NORMAL SALINE 50ML 50 ML IV SCH (20:30)
[2019-10-30] MEDS ORDERED: DEXTROSE 50% 25 GM / 50ML DISP.SYRIN. IV PRN (21:15)
--- NOTE | 2019-10-30 21:49 | NUR ---
Cubicin was administered in PACU/OR per report from [facility].
[2019-10-30] MEDS: PANTOPRAZOLE 40 MG TABLET.DR. PO SCH (22:00)
[2019-10-30] MEDS: ENOXAPARIN 40 MG/0.4 ML SYRINGE. SQ SCH (22:01)
[2019-10-31] VITALS (7 sets, daily range): BP systolic 90–163; BP diastolic 47–84
--- NOTE | 2019-10-31 00:36 | PDOC4 ---
Operative Note Operative Note Date of surgery: 10/30/2019 Preoperative diagnosis: Status post antibiotic spacer for blood pressures knee joint infection fracture Postoperative diagnosis: Same Operative procedure:right above-knee amputation Surgeon: Jon[facility] District Adviser: Cheikh Hawkins nurse practitioner Anesthesia General Estimated blood loss 1100 cc Complications: None Specimens: Right leg for gross Operative indications: Please see my dictated consultation and orthopedic notes for detailed operative indications. Note that patient and family had initially requested vascular surgery to perform the above-knee amputation based on her decision about difficulty clearing infection based on resistance of the organisms noted on deep cultures at the time of the antibiotic spacer placement. The consulting vascular surgeon asked his partner Dr. Cade to perform the procedure and she was in fact down in the preop holding area for the procedure and he had decided not to perform the procedure and to ask me to do it. I had had a discussion specifically with Ms. Baig after the vascular surgeon indicated his insistence that an orthopedic surgeon perform the procedure. She indicated that she is in charge of her care and wants to proceed with the above- knee amputation and wants me to perform the procedure. All her questions were answered consent was obtained Operative text: Patient was identified procedure verified patient placed in the supine position on the operating table. After adequate amounts of general anesthesia were administered the right lower extremity was prepped and draped in the standard sterile fashion. After timeout was performed patient procedure identified and verified the skin was marked for a fishmouth type incision with medial and lateral based flaps because of the original anterior incision from recent placement of the antibiotic spacer. Flaps were then raised bleeding points controlled by electrocautery and fascial and muscular flaps were likewise raised medially and laterally and dissection carried out with electrocautery along the distal femur and following removal of the antibiotic spacer on the femoral side the bone cut was made approximately 14 to 15 cm from the joint line area allowing for the 10 cm above the [place] location of the patella superior pole or the distal start of the condyles. Again the rest of the distal femur was excised and nerves and blood vessels were carefully dissected out and blood vessels were doubly tied off and transected distally femoral and sciatic nerves were likewise placed under traction tied off and divided sharply and allowed to retract to prevent any potential symptomatic neuroma formation. Thorough irrigation carried out normal saline solution with pulse lavage bleeding points controlled by electrocautery fascial flaps were fashioned and brought over the distal femoral bone from the lateral side first as this was a more thick substantial flap and with Ethibond suture drilled through the femoral bone was tied down to prevent any motion. The medial flap was brought over the top after sufficient trimming and additional suturing with Ethibond suture and also #1 Vicryl of the muscle and fascia to fashion a well-padded stump protecting the bone and in close retracted neurovascular structures. Additional irrigation carried out with normal saline solution and bleeding points were well controlled and the skin and subcutaneous flaps were well opposed with buried Vicryl suture skin closure with viv sterile dressings were applied and sealed up by a Ioban dressing. Patient was returned to recovery room in stable condition having tolerated the procedure well. Cheikh Hawkins nurse practitioner was present for the procedure assisted in the patient positioning prepping draping retraction closure and dressings LESLIE PEREZ MD Oct 31, 2019 00:36
[2019-10-31] MEDS: IV NORMAL SALINE 1000ML BAG 1,000 ML IV SCH ×2 (06:24→21:06)
[2019-10-31] MEDS: POTASSIUM CHLORIDE 10 MEQ TABLET.ER. PO SCH (08:00)
[2019-10-31] MEDS: CARVEDILOL 6.25 MG TABLET. PO SCH ×2 (08:00→17:00)
--- NOTE | 2019-10-31 08:05 | PDOC ---
[facility] PROGRESS NOTE Date of Service DOS: DATE: 10/31/19 TIME: 08:04 Chief Complaint Chief Complaint Irrigation debridement of right knee with removal existing antibiotic spacer extensive debridement and fashioning of rigid antibiotic spacer and placement Cultures positive STAPHYLOCOCCUS AUREUS AND XMDROACINETOBACTER BAU/NOS GROUP( R TO MERREM, MINOCYCLINE, Unasyn , Bactrim) acute on ongoing knee pain, knee infection sepsis right knee joint infection s/p replacement, with spacer, obesity, BMI 38 , severe protein-caloric malnutrition htn depression d/w rn ID FOLLOWING IV DAPTOMYCIN CONT VAC for her to try to avoid any accumulation of fluid to avoid the swelling and pain that she had experienced previously History of Present Illness History of Present Illness 10/29: To right AKA with Orthopedic surgery BRYAN can be performed any time. She has pain that is so severe she continues to black out regularly. No chest pain or SOB. WBC 22. Hb stable. Vitals/I&O Vitals/I&O: Vital Signs Date Time Temp Pulse Resp B/P (MAP) Pulse Ox O2 Delivery O2 Flow Rate FiO2 10/31/19 03:00 98.3 102 24 154/77 (102) 96 Room Air 98.3 10/31/19 00:45 2.0 I & O 0 10/30/19 10/30/19 10/31/19 15:00 23:00 07:00 Intake Total 50 ml 1400 ml Output Total 1200 ml 100 ml Balance 50 ml 200 ml -100 ml Physical Exam Physical Exam: GENERAL: Propped up in bed, alert, relaxed appearance HEENT: Oral mucosa moist. NECK: Supple LUNGS: Clear bilaterally. No wheezing. HEART: S1, S2. No gallops or murmurs. ABDOMEN: Soft, obese. Bowel sounds present, nontender, nondistended. EXTREMITIES: Right knee bandaged. NEUROLOGIC: Alert and oriented x 3, grossly nonfocal. PSYCHIATRIC: Cooperative, appropriate mood and affect DERMATOLOGIC: Warm, dry. No generalized rash. PIV looks clean General: Alert, Oriented X3, Cooperative, No acute distress Heart: Regular rate, Normal S1, Normal S2, No murmurs Lungs: Clear Abdomen: Normal bowel sounds Extremities: No clubbing, No cyanosis, Other Skin: No significant lesion, Other (irritation and drainage at knee) Assessment and Plan Assessmemt and Plan Problems Medical Problems: (1) Fever Status: Acute (2) Hypokalemia Status: Acute (3) Right knee pain Status: Acute (4) Sepsis Status: Acute Comment Review of Relevant I have reviewed the following items dieter (where applicable) has been applied. Medications: Current Medications Medications (Trade) Dose Ordered Sig/Hina Route PRN Reason Start Time Stop Time Status Last Admin Dose Admin Metoprolol Tartrate (Lopressor Vial) 5 mg PRN Q10MIN PRN IVP SEE COMMENTS 10/30/19 19:45 10/31/19 19:44 10/30/19 19:56 Fentanyl Citrate (Fentanyl 2ml Vial) 50 mcg PRN Q5MIN PRN IV MODERATE TO SEVERE PAIN 10/30/19 20:00 10/31/19 19:59 10/30/19 20:31 Justicifation of Admission Dx: Justifications for Admission: Justification of Admission Dx: N/A Sepsis: Infection ZACHARIAH LOPEZ MD Oct 31, 2019 08:05
[2019-10-31] MEDS: TRIAMTERENE/HCTZ 37.5/25MG TABLET. PO SCH (09:00)
[2019-10-31] MEDS: DULoxetine HCL 30 MG CAPSULE.DR PO SCH ×2 (09:00→21:05)
[2019-10-31] MEDS: CITALOPRAM 20 MG TABLET. PO SCH (09:00)
[2019-10-31] MEDS: LACTOBACILLUS RHAMNOSUS GG 1 CAPSULE. PO SCH ×2 (09:00→21:08)
[2019-10-31] MEDS: EZETIMIBE 10 MG TABLET. PO SCH (09:00)
[2019-10-31] MEDS: HYDROmorphone 2 MG/ML VIAL IV PRN ×3 (09:05→23:02)
[2019-10-31] MEDS: TIGECYCLINE 50 MG in IV DEXTROSE 5% 50 ML IV SCH ×2 (09:05→21:06)
[2019-10-31 09:22] LABS: BASO # 0.1 x10^3/uL (0.0-0.2); BASO % 1 % (0-3); EOS % 0 % (0-3); HEMATOCRIT 28.9 % (36.0-47.0); HEMOGLOBIN 9.4 g/dL (12.0-15.5); LYMPH # 1.6 x10^3/uL (1.0-4.8); LYMPH % 7 % (24-48); MEAN CORPUSCULAR HEMOGLOBIN 27 pg (25-35); MEAN CORPUSCULAR HGB CONC 33 g/dL (31-37); MEAN CORPUSCULAR VOLUME 82 fL (79-100); MONO # 1.3 x10^3/uL (0.0-1.1); MONO % 6 % (0-9); NEUT # 19.3 x10^3/uL (1.8-7.7); NEUT % 87 % (31-73); PLATELET COUNT 486 x10^3/uL (140-400); RED BLOOD COUNT 3.51 x10^6/uL (3.50-5.40); RED CELL DISTRIBUTION WIDTH 15.1 % (11.5-14.5); WHITE BLOOD COUNT 22.3 x10^3/uL (4.0-11.0)
--- NOTE | 2019-10-31 09:24 | PDOC ---
Infectious Disease Note Subjective Subjective Has post op pain Denies fever/chills/N/V/SOA/rash Vital Sign Vital Signs Vital Signs Date Time Temp Pulse Resp B/P (MAP) Pulse Ox O2 Delivery O2 Flow Rate FiO2 10/31/19 09:05 20 100 2.0 10/31/19 07:00 97.5 103 108/62 (77) Room Air 97.5 Physical Exam PHYSICAL EXAM GENERAL: Propped up in bed, alert, coop HEENT: Oral mucosa moist. nml conj NECK: Supple LUNGS: Clear bilaterally. No wheezing. HEART: S1, S2. No gallops or murmurs. ABDOMEN: Soft, obese. Bowel sounds present, nontender, nondistended. EXTREMITIES: Right LE bandaged NEUROLOGIC: Alert and oriented x 3, grossly nonfocal. PSYCHIATRIC: Cooperative, appropriate mood and affect DERMATOLOGIC: Warm, dry. No generalized rash. PIV looks clean Labs Micro ANTIMICROBIAL SUSCEPTIBILITY Final Comment Comment POS TANYA TYPE 38 STAPHYLOCOCCUS AUREUS (MRSA) ANTIBIOTIC RESULT INTERPRETATION AZITHROMYCIN >4 R CLINDAMYCIN >4 R CEFOXITIN SCREEN >4 POS CIPROFLOXACIN >2 R CEFTAROLINE 1 S CONTINUED ON NEXT PAGE RUN DATE: 10/26/19 [facility] *LIVE* PAGE 2 RUN TIME: 1123 Specimen Inquiry SPEC: [id number] PATIENT: GREYSON VELEZ [id number] (Continued) --------- --- Procedure Result ANTIMICROBIAL SUSCEPTIBILITY Final (continued) DAPTOMYCIN <=0.5 S ERYTHROMYCIN >4 R GENTAMICIN <=4 S LINEZOLID 2 S LEVOFLOXACIN >4 R OXACILLIN >2 R PENICILLIN >2 R* RIFAMPIN <=1 S TRIMETHOPRIM/SULFAMETHOXAZOLE <=0.5/9.5 S TETRACYCLINE <=4 S VANCOMYCIN 1 S NEG TANYA 56 ACINETOBACTER BAU/NOS GROUP ANTIBIOTIC RESULT INTERPRETATION AMPICILLIN/SULBACTAM >16/8 R AMIKACIN >32 R CEFTRIAXONE >32 R CEFTAZIDIME >16 R CEFOTAXIME >32 R CIPROFLOXACIN >2 R CEFEPIME >16 R GENTAMICIN >8 R LEVOFLOXACIN >4 R MINOCYCLINE >8 R MEROPENEM >8 R TRIMETHOPRIM/SULFAMETHOXAZOLE >2/38 R TOBRAMYCIN >8 R Unless otherwise specified, Testing Performed by: Microbiology 10/27/19 Blood Culture - Preliminary, Resulted NO GROWTH AFTER 3 DAYS 10/24/19 Gram Stain - Final, Complete 10/24/19 Aerobic and Anaerobic Culture - Final, Complete 10/23/19 Gram Stain - Final, Complete 10/23/19 Aerobic Culture - Final, Complete 10/23/19 Antimicrobic Susceptibility - Final, Complete Objective Assessment Very complicated case S/p R AKA 10/29 Leukocytosis - post op and post Dexamethasone MRSA bacteremia, POA (4 out of 4 bottles) 10/22/2019 source right knee infection. -repeat BC 10/23, 10/25 and 10/26 neg to date Right knee infection with drainage from last surgery with wound vac -Oct 23 2019 Cultures positive for MRSA AND XMDRO ACINETOBACTER BAU/NOS GROUP - Oct 23 cultures not reported yet,pending ,d/w micro today -On Oct 24, 2019 s/p I&D with removal of existing antibiotic spacer, extensive debridement and fashioning of rigid antibiotic spacer and placement -Operative findings same with superficial cloudy drainage, no gross evidence of deep infection or osteomyelitis. 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 -Status post synovial aspirate at [facility] October 13, 2019. Positive for acinetobacter bau (Unasyn-S) and VRE (also resistent to ampicillin, tetra, Dapto and intermediate to linazolid) She was initially scheduled to have a revision/placement of abx spacer on Dec [address] Persaud -08/15/2019 s/p removal of right knee joint implant and plate and screw hardware with debridement and placement of nonarticulating antibiotic spacer, cultures, s/p I and D with hematoma evacuation and revision of antibiotic spacer. Cultures negative -07/25/2019 status post I and D, right knee with poly exchange and extensive mechanism repair done. -07/25/2019, intraoperative cultures positive for Corynebacterium species, sensitive to meropenem and daptomycin. Treated through September 26, 2019 H/o Right TKA 08/25/2016 History of renal cancer, status post left nephrectomy with mild renal insufficiency. Diabetes mellitus. Hypertension. Obesity. Gastroesophageal reflux disease. ALLERGIES TO SULFA, CEPHALEXIN, has tolerated amoxicillin. Protein-calorie malnutrition. Generalized debility Plan Plan of Care S/p Dexamethasone 10/29 Awaiting BRYAN Will need PICC line Continue daptomycin (CK25 10/26) and tigecycline for now Awaiting eravacycline and tigecycline susceptibility for XMDRO Acinetobacter but source of infection has been removed Micro data from reviewed. Remains at risk of other comorbidities including distant metastatic infection from MRSA bacteremia Monitor for antimicrobial toxicities. Follow-up repeat blood cultures, from 10/23 negative so far Monitor labs Wound care as directed Contact isolation for MRSA & XMDROs D/w nursing and MARIA INES Oden MD Oct 31, 2019 09:24
[2019-10-31 09:35] LABS: CALCIUM 7.8 mg/dL (8.5-10.1); CREATININE 0.9 mg/dL (0.6-1.0); GFR 61.9; POTASSIUM 4.4 mmol/L (3.5-5.1)
[2019-10-31 10:17] LABS: % ATYL 1 % (0-0); % BANDS 11 % (0-9); % BASOS 1 % (0-3); % LYMPHS 5 % (24-48); % MONOS 4 % (0-10); % SEGS 78 % (35-66)
[2019-10-31 10:18] LABS: ANISOCYTOSIS SLIGHT; PLT ESTIMATE INCREASED (ADEQUATE)
[2019-10-31] MEDS ORDERED: HYDROmorphone 2 MG/ML VIAL IV ONE (11:45)
--- NOTE | 2019-10-31 16:04 | PDOC ---
ORTHO PROGRESS NOTES DATE: 10/31/19 TIME: 15:59 Subjective Patient states feeling somewhat better since pain medication has been increased. Post-op Day: 1 Procedure Right [id number] amputation Vitals Vital Signs Date Time Temp Pulse Resp B/P (MAP) Pulse Ox O2 Delivery O2 Flow Rate FiO2 10/31/19 15:00 98.1 98 18 90/55 (67) 94 Room Air 98.1 10/31/19 13:44 2.0 Labs Laboratory Tests Test 10/31/19 09:15 White Blood Count 22.3 x10^3/uL (4.0-11.0) Red Blood Count 3.51 x10^6/uL (3.50-5.40) Hemoglobin 9.4 g/dL (12.0-15.5) Hematocrit 28.9 % (36.0-47.0) Mean Corpuscular Volume 82 fL (79-100) Mean Corpuscular Hemoglobin 27 pg (25-35) Mean Corpuscular Hemoglobin Concent 33 g/dL (31-37) Red Cell Distribution Width 15.1 % (11.5-14.5) Platelet Count 486 x10^3/uL (140-400) Neutrophils (%) (Auto) 87 % (31-73) Lymphocytes (%) (Auto) 7 % (24-48) Monocytes (%) (Auto) 6 % (0-9) Eosinophils (%) (Auto) 0 % (0-3) Basophils (%) (Auto) 1 % (0-3) Neutrophils # (Auto) 19.3 x10^3/uL (1.8-7.7) Lymphocytes # (Auto) 1.6 x10^3/uL (1.0-4.8) Monocytes # (Auto) 1.3 x10^3/uL (0.0-1.1) Eosinophils # (Auto) 0.0 x10^3/uL (0.0-0.7) Basophils # (Auto) 0.1 x10^3/uL (0.0-0.2) Segmented Neutrophils % 78 % (35-66) Band Neutrophils % 11 % (0-9) Lymphocytes % 5 % (24-48) Atypical Lymphocytes % (Manual) 1 % (0-0) Monocytes % 4 % (0-10) Basophils % 1 % (0-3) Platelet Estimate Increased (ADEQUATE) Anisocytosis Slight Sodium Level 137 mmol/L (136-145) Potassium Level 4.4 mmol/L (3.5-5.1) Chloride Level 100 mmol/L (98-107) Carbon Dioxide Level 33 mmol/L (21-32) Anion Gap 4 (6-14) Blood Urea Nitrogen 20 mg/dL (7-20) Creatinine 0.9 mg/dL (0.6-1.0) Estimated GFR (Cockcroft-Gault) 61.9 Glucose Level 177 mg/dL (70-99) Calcium Level 7.8 mg/dL (8.5-10.1) Laboratory Tests Test 10/31/19 09:15 White Blood Count 22.3 x10^3/uL (4.0-11.0) Red Blood Count 3.51 x10^6/uL (3.50-5.40) Hemoglobin 9.4 g/dL (12.0-15.5) Hematocrit 28.9 % (36.0-47.0) Mean Corpuscular Volume 82 fL (79-100) Mean Corpuscular Hemoglobin 27 pg (25-35) Mean Corpuscular Hemoglobin Concent 33 g/dL (31-37) Red Cell Distribution Width 15.1 % (11.5-14.5) Platelet Count 486 x10^3/uL (140-400) Neutrophils (%) (Auto) 87 % (31-73) Lymphocytes (%) (Auto) 7 % (24-48) Monocytes (%) (Auto) 6 % (0-9) Eosinophils (%) (Auto) 0 % (0-3) Basophils (%) (Auto) 1 % (0-3) Neutrophils # (Auto) 19.3 x10^3/uL (1.8-7.7) Lymphocytes # (Auto) 1.6 x10^3/uL (1.0-4.8) Monocytes # (Auto) 1.3 x10^3/uL (0.0-1.1) Eosinophils # (Auto) 0.0 x10^3/uL (0.0-0.7) Basophils # (Auto) 0.1 x10^3/uL (0.0-0.2) Segmented Neutrophils % 78 % (35-66) Band Neutrophils % 11 % (0-9) Lymphocytes % 5 % (24-48) Atypical Lymphocytes % (Manual) 1 % (0-0) Monocytes % 4 % (0-10) Basophils % 1 % (0-3) Platelet Estimate Increased (ADEQUATE) Anisocytosis Slight Sodium Level 137 mmol/L (136-145) Potassium Level 4.4 mmol/L (3.5-5.1) Chloride Level 100 mmol/L (98-107) Carbon Dioxide Level 33 mmol/L (21-32) Anion Gap 4 (6-14) Blood Urea Nitrogen 20 mg/dL (7-20) Creatinine 0.9 mg/dL (0.6-1.0) Estimated GFR (Cockcroft-Gault) 61.9 Glucose Level 177 mg/dL (70-99) Calcium Level 7.8 mg/dL (8.5-10.1) Notes Awake and alert Assessment and Plan Postop day 1 status post right mpzxo-ldn-bkau amputation. Motor and sensation intact distally. Dressing is dry and intact. No drainage noted. Continue pain control EULA PERRY APRN Oct 31, 2019 16:04
--- NOTE | 2019-10-31 16:08 | NUR ---
Patient is Day 1 post right AKA, still complains of pain 10/10. Notified Dr. Benz, dilaudid dose increased. The patient is more awake and alert today. right knee stump dressing, clean,dry and intact.
--- NOTE | 2019-10-31 16:17 | NUR ---
Clarified BRYAN schedule with cardiology, procedure scheduled tomorrow AM. The patient can resume diet now.
--- NOTE | 2019-10-31 16:57 | PDOC ---
Provider Note Provider Note 10/31/2019 1415 S/P RAKA due to infection. Positive for bacteremia. ID requested for BRYAN to rule out endocarditis. Pt is AOx3 and no respiratory distress. No significant swallowing or esophageal problems. Discussed with pt, risks and benefits and agreeable to proceed. Will schedule at 0930 AM tomorrow. Justicifation of Admission Dx: Justifications for Admission: Justification of Admission Dx: N/A Sepsis: Infection YOANA SANCHEZ [employer] Oct 31, 2019 16:57
[2019-10-31] MEDS: ASCORBIC ACID 500 MG TABLET PO SCH (17:25)
[2019-10-31] MEDS: MULTIVITAMIN with MINERAL TABLET. PO SCH (17:25)
[2019-10-31] MEDS: PANTOPRAZOLE 40 MG TABLET.DR. PO SCH (21:05)
[2019-10-31] MEDS: ENOXAPARIN 40 MG/0.4 ML SYRINGE. SQ SCH (21:05)
[2019-10-31] MEDS: DAPTOmycin (GENERIC) IVPB 480 MG in IV NORMAL SALINE 50ML 50 ML IV SCH (21:06)
[2019-11-01] VITALS (7 sets, daily range): BP systolic 92–109; BP diastolic 27–66
[2019-11-01] MEDS ORDERED: PROCHLORPERAZINE 10 MG/2 ML VIAL. IV PRN (07:00)
[2019-11-01] MEDS ORDERED: IV RINGERS,LACTATED 1000ML 1,000 ML IV SCH (07:00)
[2019-11-01] MEDS: HYDROmorphone 2 MG/ML VIAL IV PRN ×4 (07:01→20:57)
[2019-11-01 07:22] LABS: HEMATOCRIT 23.6 % (36.0-47.0); HEMOGLOBIN 7.5 g/dL (12.0-15.5); RED BLOOD COUNT 2.86 x10^6/uL (3.50-5.40); RED CELL DISTRIBUTION WIDTH 14.9 % (11.5-14.5); WHITE BLOOD COUNT 15.8 x10^3/uL (4.0-11.0)
[2019-11-01] MEDS ORDERED: LIDOCAINE 2% TOPICAL JELLY 30GM TUBE. TP ONE (08:00)
[2019-11-01] MEDS ORDERED: LIDOCAINE 2% VISCOUS 15 ML SOLUTION. SWSW ONE (08:00)
[2019-11-01] MEDS: POTASSIUM CHLORIDE 10 MEQ TABLET.ER. PO SCH (08:00)
[2019-11-01] MEDS ORDERED: BENZOCAINE ONE 20% MUCOSAL SPRAY. MM (08:00)
[2019-11-01 08:09] LABS: CREATININE 0.6 mg/dL (0.6-1.0); GFR 98.8; POTASSIUM 4.4 mmol/L (3.5-5.1)
--- NOTE | 2019-11-01 08:29 | PDOC ---
ORTHO PROGRESS NOTES DATE: 11/01/19 TIME: 08:20 Subjective Patient still painful today. Phantom pain over the right lower extremity Post-op Day: 2 Procedure Right hnhhy-byf-wrxg amputation Vitals Vital Signs Date Time Temp Pulse Resp B/P (MAP) Pulse Ox O2 Delivery O2 Flow Rate FiO2 11/01/19 07:01 Room Air 11/01/19 03:00 97.5 85 18 109/44 (65) 99 2.0 97.5 Labs Laboratory Tests Test 10/31/19 09:15 10/31/19 21:13 White Blood Count 22.3 x10^3/uL (4.0-11.0) 15.8 x10^3/uL (4.0-11.0) Red Blood Count 3.51 x10^6/uL (3.50-5.40) 2.86 x10^6/uL (3.50-5.40) Hemoglobin 9.4 g/dL (12.0-15.5) 7.5 g/dL (12.0-15.5) Hematocrit 28.9 % (36.0-47.0) 23.6 % (36.0-47.0) Mean Corpuscular Volume 82 fL (79-100) 83 fL (79-100) Mean Corpuscular Hemoglobin 27 pg (25-35) 26 pg (25-35) Mean Corpuscular Hemoglobin Concent 33 g/dL (31-37) 32 g/dL (31-37) Red Cell Distribution Width 15.1 % (11.5-14.5) 14.9 % (11.5-14.5) Platelet Count 486 x10^3/uL (140-400) 436 x10^3/uL (140-400) Neutrophils (%) (Auto) 87 % (31-73) Lymphocytes (%) (Auto) 7 % (24-48) Monocytes (%) (Auto) 6 % (0-9) Eosinophils (%) (Auto) 0 % (0-3) Basophils (%) (Auto) 1 % (0-3) Neutrophils # (Auto) 19.3 x10^3/uL (1.8-7.7) Lymphocytes # (Auto) 1.6 x10^3/uL (1.0-4.8) Monocytes # (Auto) 1.3 x10^3/uL (0.0-1.1) Eosinophils # (Auto) 0.0 x10^3/uL (0.0-0.7) Basophils # (Auto) 0.1 x10^3/uL (0.0-0.2) Segmented Neutrophils % 78 % (35-66) Band Neutrophils % 11 % (0-9) Lymphocytes % 5 % (24-48) Atypical Lymphocytes % (Manual) 1 % (0-0) Monocytes % 4 % (0-10) Basophils % 1 % (0-3) Platelet Estimate Increased (ADEQUATE) Anisocytosis Slight Sodium Level 137 mmol/L (136-145) Potassium Level 4.4 mmol/L (3.5-5.1) Chloride Level 100 mmol/L (98-107) Carbon Dioxide Level 33 mmol/L (21-32) Anion Gap 4 (6-14) Blood Urea Nitrogen 20 mg/dL (7-20) Creatinine 0.9 mg/dL (0.6-1.0) Estimated GFR (Cockcroft-Gault) 61.9 Glucose Level 177 mg/dL (70-99) Calcium Level 7.8 mg/dL (8.5-10.1) Laboratory Tests Test 10/31/19 09:15 10/31/19 21:13 White Blood Count 22.3 x10^3/uL (4.0-11.0) 15.8 x10^3/uL (4.0-11.0) Red Blood Count 3.51 x10^6/uL (3.50-5.40) 2.86 x10^6/uL (3.50-5.40) Hemoglobin 9.4 g/dL (12.0-15.5) 7.5 g/dL (12.0-15.5) Hematocrit 28.9 % (36.0-47.0) 23.6 % (36.0-47.0) Mean Corpuscular Volume 82 fL (79-100) 83 fL (79-100) Mean Corpuscular Hemoglobin 27 pg (25-35) 26 pg (25-35) Mean Corpuscular Hemoglobin Concent 33 g/dL (31-37) 32 g/dL (31-37) Red Cell Distribution Width 15.1 % (11.5-14.5) 14.9 % (11.5-14.5) Platelet Count 486 x10^3/uL (140-400) 436 x10^3/uL (140-400) Neutrophils (%) (Auto) 87 % (31-73) Lymphocytes (%) (Auto) 7 % (24-48) Monocytes (%) (Auto) 6 % (0-9) Eosinophils (%) (Auto) 0 % (0-3) Basophils (%) (Auto) 1 % (0-3) Neutrophils # (Auto) 19.3 x10^3/uL (1.8-7.7) Lymphocytes # (Auto) 1.6 x10^3/uL (1.0-4.8) Monocytes # (Auto) 1.3 x10^3/uL (0.0-1.1) Eosinophils # (Auto) 0.0 x10^3/uL (0.0-0.7) Basophils # (Auto) 0.1 x10^3/uL (0.0-0.2) Segmented Neutrophils % 78 % (35-66) Band Neutrophils % 11 % (0-9) Lymphocytes % 5 % (24-48) Atypical Lymphocytes % (Manual) 1 % (0-0) Monocytes % 4 % (0-10) Basophils % 1 % (0-3) Platelet Estimate Increased (ADEQUATE) Anisocytosis Slight Sodium Level 137 mmol/L (136-145) Potassium Level 4.4 mmol/L (3.5-5.1) Chloride Level 100 mmol/L (98-107) Carbon Dioxide Level 33 mmol/L (21-32) Anion Gap 4 (6-14) Blood Urea Nitrogen 20 mg/dL (7-20) Creatinine 0.9 mg/dL (0.6-1.0) Estimated GFR (Cockcroft-Gault) 61.9 Glucose Level 177 mg/dL (70-99) Calcium Level 7.8 mg/dL (8.5-10.1) Notes Awake and alert asking appropriate questions Assessment and Plan Postop day #2 status post right vnkfl-tkm-efxr amputation. Motor and sensation intact distally at the stump. Dressing is dry and intact. Patient is scheduled for BRYAN this morning to rule out endocarditis. EULA PERRY APRN Nov 01, 2019 08:29
[2019-11-01] MEDS: TRIAMTERENE/HCTZ 37.5/25MG TABLET. PO SCH (09:00)
[2019-11-01] MEDS ORDERED: LIDOCAINE 2% PF 5 ML VIAL. ONE (09:35)
[2019-11-01] MEDS ORDERED: PROPOFOL 10 MG/ML (20ML) VIAL. IV ONE ×2 (09:35)
[2019-11-01] MEDS: IV NORMAL SALINE 1000ML BAG 1,000 ML IV SCH (10:11)
[2019-11-01] MEDS: TIGECYCLINE 50 MG in IV DEXTROSE 5% 50 ML IV SCH ×2 (10:56→21:38)
--- NOTE | 2019-11-01 11:49 | PDOC ---
Infectious Disease Note Subjective Subjective Less pain. Better Denies fever/chills/N/V/SOA/rash Vital Sign Vital Signs Vital Signs Date Time Temp Pulse Resp B/P (MAP) Pulse Ox O2 Delivery O2 Flow Rate FiO2 11/01/19 10:56 Room Air 11/01/19 10:37 97.8 83 12 111/42 92 97.8 11/01/19 10:25 4 Physical Exam PHYSICAL EXAM GENERAL: Propped up in bed, alert, coop HEENT: Oral mucosa moist. nml conj NECK: Supple LUNGS: Clear bilaterally. No wheezing. HEART: S1, S2. No gallops or murmurs. ABDOMEN: Soft, obese. Bowel sounds present, nontender, nondistended. EXTREMITIES: Right LE bandaged NEUROLOGIC: Alert and oriented x 3, grossly nonfocal. PSYCHIATRIC: Cooperative, appropriate mood and affect DERMATOLOGIC: Warm, dry. No generalized rash. PIV looks clean Labs Lab Laboratory Tests Test 10/31/19 21:13 11/01/19 03:40 White Blood Count 15.8 x10^3/uL (4.0-11.0) Red Blood Count 2.86 x10^6/uL (3.50-5.40) Hemoglobin 7.5 g/dL (12.0-15.5) Hematocrit 23.6 % (36.0-47.0) Mean Corpuscular Volume 83 fL (79-100) Mean Corpuscular Hemoglobin 26 pg (25-35) Mean Corpuscular Hemoglobin Concent 32 g/dL (31-37) Red Cell Distribution Width 14.9 % (11.5-14.5) Platelet Count 436 x10^3/uL (140-400) Sodium Level 137 mmol/L (136-145) Potassium Level 4.4 mmol/L (3.5-5.1) Chloride Level 102 mmol/L (98-107) Carbon Dioxide Level 26 mmol/L (21-32) Anion Gap 9 (6-14) Blood Urea Nitrogen 24 mg/dL (7-20) Creatinine 0.6 mg/dL (0.6-1.0) Estimated GFR (Cockcroft-Gault) 98.8 Glucose Level 131 mg/dL (70-99) Calcium Level 8.0 mg/dL (8.5-10.1) Micro ANTIMICROBIAL SUSCEPTIBILITY Final Comment Comment POS TANYA TYPE 38 STAPHYLOCOCCUS AUREUS (MRSA) ANTIBIOTIC RESULT INTERPRETATION AZITHROMYCIN >4 R CLINDAMYCIN >4 R CEFOXITIN SCREEN >4 POS CIPROFLOXACIN >2 R CEFTAROLINE 1 S CONTINUED ON NEXT PAGE RUN DATE: 10/26/19 [facility] *LIVE* PAGE 2 RUN TIME: 112 Specimen Inquiry SPEC: [id number] PATIENT: STARR VELEZPEBBLESFabiola Tanya [id number] (Continued) Procedure Result ANTIMICROBIAL SUSCEPTIBILITY Final (continued) DAPTOMYCIN <=0.5 S ERYTHROMYCIN >4 R GENTAMICIN <=4 S LINEZOLID 2 S LEVOFLOXACIN >4 R OXACILLIN >2 R PENICILLIN >2 R* RIFAMPIN <=1 S TRIMETHOPRIM/SULFAMETHOXAZOLE <=0.5/9.5 S TETRACYCLINE <=4 S VANCOMYCIN 1 S NEG TANYA 56 ACINETOBACTER BAU/NOS GROUP ANTIBIOTIC RESULT INTERPRETATION AMPICILLIN/SULBACTAM >16/8 R AMIKACIN >32 R CEFTRIAXONE >32 R CEFTAZIDIME >16 R CEFOTAXIME >32 R CIPROFLOXACIN >2 R CEFEPIME >16 R GENTAMICIN >8 R LEVOFLOXACIN >4 R MINOCYCLINE >8 R MEROPENEM >8 R TRIMETHOPRIM/SULFAMETHOXAZOLE >2/38 R TOBRAMYCIN >8 R Unless otherwise specified, Testing Performed by: Microbiology 10/27/19 Blood Culture - Preliminary, Resulted NO GROWTH AFTER 3 DAYS 10/24/19 Gram Stain - Final, Complete 10/24/19 Aerobic and Anaerobic Culture - Final, Complete 10/23/19 Gram Stain - Final, Complete 10/23/19 Aerobic Culture - Final, Complete 10/23/19 Antimicrobic Susceptibility - Final, Complete Objective Assessment Very complicated case S/p BRYAN 10/31 prelim report - neg Veg S/p R AKA 10/29 Leukocytosis - post op and post Dexamethasone - better MRSA bacteremia, POA (4 out of 4 bottles) 10/22/2019 source right knee infection. -repeat BC 10/23, 10/25 and 10/26 neg to date Right knee infection with drainage from last surgery with wound vac -Oct 23 2019 Cultures positive for MRSA AND XMDRO ACINETOBACTER BAU/NOS GROUP - Oct 23 cultures not reported yet,pending ,d/w micro today -On Oct 24, 2019 s/p I&D with removal of existing antibiotic spacer, extensive debridement and fashioning of rigid antibiotic spacer and placement -Operative findings same with superficial cloudy drainage, no gross evidence of deep infection or osteomyelitis. 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 -Status post synovial aspirate at [facility] October 13, 2019. Positive for acinetobacter bau (Unasyn-S) and VRE (also resistent to ampicillin, tetra, Dapto and intermediate to linazolid) She was initially scheduled to have a revision/placement of abx spacer on Dec [address] Persaud -08/15/2019 s/p removal of right knee joint implant and plate and screw hardware with debridement and placement of nonarticulating antibiotic spacer, cultures, s/p I and D with hematoma evacuation and revision of antibiotic spacer. Cultures negative -07/25/2019 status post I and D, right knee with poly exchange and extensive mechanism repair done. -07/25/2019, intraoperative cultures positive for Corynebacterium species, sensitive to meropenem and daptomycin. Treated through September 26, 2019 H/o Right TKA 08/25/2016 History of renal cancer, status post left nephrectomy with mild renal insufficiency. Diabetes mellitus. Hypertension. Obesity. Gastroesophageal reflux disease. ALLERGIES TO SULFA, CEPHALEXIN, has tolerated amoxicillin. Protein-calorie malnutrition. Generalized debility Plan Plan of Care S/p Dexamethasone 10/29 F/u official BRYAN report Will need PICC line - ordered Continue daptomycin (CK25 10/26) and tigecycline for now Awaiting eravacycline and tigecycline susceptibility for XMDRO Acinetobacter but source of infection has been removed Micro data from reviewed. Remains at risk of other comorbidities including distant metastatic infection from MRSA bacteremia Monitor for antimicrobial toxicities. Follow-up repeat blood cultures, from 10/23 negative so far Monitor labs Wound care as directed Contact isolation for MRSA & XMDROs D/w nursing and MARIA INES Oden MD Nov 01, 2019 11:49
[2019-11-01] MEDS: ASCORBIC ACID 500 MG TABLET PO SCH (12:16)
[2019-11-01] MEDS: CARVEDILOL 6.25 MG TABLET. PO SCH ×2 (12:17→17:00)
[2019-11-01] MEDS: EZETIMIBE 10 MG TABLET. PO SCH (12:17)
[2019-11-01] MEDS: LACTOBACILLUS RHAMNOSUS GG 1 CAPSULE. PO SCH ×2 (12:18→20:47)
[2019-11-01] MEDS: CITALOPRAM 20 MG TABLET. PO SCH (12:18)
[2019-11-01] MEDS: DULoxetine HCL 30 MG CAPSULE.DR PO SCH ×2 (12:18→20:47)
[2019-11-01] MEDS: MULTIVITAMIN with MINERAL TABLET. PO SCH (12:19)
--- NOTE | 2019-11-01 14:02 | PDOC ---
[employer] PROGRESS NOTE Date of Service DOS: DATE: 11/01/19 TIME: 13:59 Chief Complaint Chief Complaint Irrigation debridement of right knee with removal existing antibiotic spacer extensive debridement and fashioning of rigid antibiotic spacer and placement Cultures positive STAPHYLOCOCCUS AUREUS AND XMDROACINETOBACTER BAU/NOS GROUP( R TO MERREM, MINOCYCLINE, Unasyn , Bactrim) acute on ongoing knee pain, knee infection sepsis right knee joint infection s/p replacement, with spacer, obesity, BMI 38 , severe protein-caloric malnutrition htn depression d/w rn ID FOLLOWING IV DAPTOMYCIN CONT VAC for her to try to avoid any accumulation of fluid to avoid the swelling and pain that she had experienced previously History of Present Illness History of Present Illness 10/29: To right AKA with Orthopedic surgery 10/30: BRYAN can be performed any time. She has pain that is so severe she continues to black out regularly. No chest pain or SOB. WBC 22. Hb stable. Having some phantom right leg pain today. Overall she is more comfortable. She is stressing as her missed dialysis yesterday and was found wandering at 10:30 PM thinking it was 5:30 AM. WBC down to 15.8, Hb dropped into the 7s. To BRYAN today. D/w ID will need PICC for MRSA bacteremia Vitals/I&O Vitals/I&O: Vital Signs Date Time Temp Pulse Resp B/P (MAP) Pulse Ox O2 Delivery O2 Flow Rate FiO2 11/01/19 12:24 Room Air 11/01/19 12:17 83 111/42 11/01/19 11:00 98.3 17 90 98.3 11/01/19 10:25 4 I & O 10/31/19 10/31/19 11/01/19 15:00 23:00 07:00 Intake Total 200 ml 600 ml Output Total 500 ml 300 ml Balance -300 ml 300 ml Physical Exam Physical Exam: GENERAL: Propped up in bed, alert, coop HEENT: Oral mucosa moist. nml conj NECK: Supple LUNGS: Clear bilaterally. No wheezing. HEART: S1, S2. No gallops or murmurs. ABDOMEN: Soft, obese. Bowel sounds present, nontender, nondistended. EXTREMITIES: Right LE bandaged NEUROLOGIC: Alert and oriented x 3, grossly nonfocal. PSYCHIATRIC: Cooperative, appropriate mood and affect DERMATOLOGIC: Warm, dry. No generalized rash. PIV looks clean General: Alert, Oriented X3, Cooperative, No acute distress Heart: Regular rate, Normal S1, Normal S2, No murmurs Lungs: Clear Abdomen: Normal bowel sounds Extremities: No clubbing, No cyanosis, Other Skin: No significant lesion, Other (irritation and drainage at knee) Labs Labs: Laboratory Tests Test 10/31/19 21:13 11/01/19 03:40 White Blood Count 15.8 x10^3/uL (4.0-11.0) Red Blood Count 2.86 x10^6/uL (3.50-5.40) Hemoglobin 7.5 g/dL (12.0-15.5) Hematocrit 23.6 % (36.0-47.0) Mean Corpuscular Volume 83 fL (79-100) Mean Corpuscular Hemoglobin 26 pg (25-35) Mean Corpuscular Hemoglobin Concent 32 g/dL (31-37) Red Cell Distribution Width 14.9 % (11.5-14.5) Platelet Count 436 x10^3/uL (140-400) Sodium Level 137 mmol/L (136-145) Potassium Level 4.4 mmol/L (3.5-5.1) Chloride Level 102 mmol/L (98-107) Carbon Dioxide Level 26 mmol/L (21-32) Anion Gap 9 (6-14) Blood Urea Nitrogen 24 mg/dL (7-20) Creatinine 0.6 mg/dL (0.6-1.0) Estimated GFR (Cockcroft-Gault) 98.8 Glucose Level 131 mg/dL (70-99) Calcium Level 8.0 mg/dL (8.5-10.1) Assessment and Plan Assessmemt and Plan Problems Medical Problems: (1) Fever Status: Acute (2) Hypokalemia Status: Acute (3) Right knee pain Status: Acute (4) Sepsis Status: Acute Comment Review of Relevant I have reviewed the following items dieter (where applicable) has been applied. Medications: Current Medications Medications (Trade) Dose Ordered Sig/Hina Route PRN Reason Start Time Stop Time Status Last Admin Dose Admin Lidocaine HCl (Viscous Lidocaine) 15 ml 1X ONCE SWSW 11/01/19 08:00 11/01/19 08:01 DC 11/01/19 08:00 Lidocaine HCl (Xylocaine 2% Topical 30gm Tube) 1 marc 1X ONCE TP 11/01/19 08:00 11/01/19 08:01 DC 11/01/19 09:47 Benzocaine (Hurricaine One) 2 spray 1X ONCE MM 11/01/19 08:00 11/01/19 08:01 DC 11/01/19 09:38 Justicifation of Admission Dx: Justifications for Admission: Justification of Admission Dx: N/A Sepsis: Infection ZACHARIAH LOPEZ MD Nov 01, 2019 14:02
[2019-11-01] MEDS: HYDROmorphone 4 MG TABLET PO PRN (14:14)
[2019-11-01] MEDS: PANTOPRAZOLE 40 MG TABLET.DR. PO SCH (20:47)
[2019-11-01] MEDS: DAPTOmycin (GENERIC) IVPB 480 MG in IV NORMAL SALINE 50ML 50 ML IV SCH (20:48)
[2019-11-01] MEDS: ENOXAPARIN 40 MG/0.4 ML SYRINGE. SQ SCH (20:49)
[2019-11-01] MEDS: ONDANSETRON PF 4 MG/2 ML VIAL. IV PRN (20:56)
[2019-11-02] MEDS: HYDROmorphone 2 MG/ML VIAL IV PRN ×6 (01:44→20:45)
[2019-11-02 03:11] VITALS: BP 94/41
[2019-11-02] MEDS: IV NORMAL SALINE 1000ML BAG 1,000 ML IV SCH ×2 (04:37→20:42)
[2019-11-02 07:00] VITALS: BP 101/40
[2019-11-02 07:24] LABS: BASO % 0 % (0-3); EOS # 0.1 x10^3/uL (0.0-0.7); EOS % 1 % (0-3); HEMATOCRIT 22.3 % (36.0-47.0); HEMOGLOBIN 7.1 g/dL (12.0-15.5); LYMPH # 2.2 x10^3/uL (1.0-4.8); LYMPH % 19 % (24-48); MEAN CORPUSCULAR HEMOGLOBIN 27 pg (25-35); MEAN CORPUSCULAR HGB CONC 32 g/dL (31-37); MEAN CORPUSCULAR VOLUME 84 fL (79-100); MONO # 0.9 x10^3/uL (0.0-1.1); MONO % 7 % (0-9); NEUT # 8.4 x10^3/uL (1.8-7.7); NEUT % 72 % (31-73); PLATELET COUNT 355 x10^3/uL (140-400); RED BLOOD COUNT 2.67 x10^6/uL (3.50-5.40); RED CELL DISTRIBUTION WIDTH 15.8 % (11.5-14.5); WHITE BLOOD COUNT 11.6 x10^3/uL (4.0-11.0)
[2019-11-02] MEDS: CARVEDILOL 6.25 MG TABLET. PO SCH ×2 (08:00→16:56)
[2019-11-02] MEDS: POTASSIUM CHLORIDE 10 MEQ TABLET.ER. PO SCH (08:00)
[2019-11-02] MEDS ORDERED: LIDOCAINE WITH 8.4% SOD BICARB 3 ML DISP.SYRIN. ONE (08:23)
[2019-11-02 08:32] LABS: ALBUMIN 2.1 g/dL (3.4-5.0); ALBUMIN/GLOBULIN RATIO 0.8 (1.0-1.7); CALCIUM 8.3 mg/dL (8.5-10.1); CREATININE 0.9 mg/dL (0.6-1.0); GFR 61.9; POTASSIUM 5.4 mmol/L (3.5-5.1); TOTAL BILIRUBIN 0.4 mg/dL (0.2-1.0); TOTAL PROTEIN 4.7 g/dL (6.4-8.2)
[2019-11-02] MEDS: ONDANSETRON PF 4 MG/2 ML VIAL. IV PRN (08:36)
[2019-11-02] MEDS ORDERED: LIDOCAINE WITH 8.4% SOD BICARB 3 ML DISP.SYRIN. INJ ONE (08:45)
[2019-11-02] MEDS: TRIAMTERENE/HCTZ 37.5/25MG TABLET. PO SCH (09:00)
[2019-11-02] MEDS: TIGECYCLINE 50 MG in IV DEXTROSE 5% 50 ML IV SCH ×2 (09:24→22:25)
--- NOTE | 2019-11-02 10:58 | PDOC ---
Infectious Disease Note Subjective Subjective Less pain. Better today Denies fever/chills/N/V/SOA/rash Vital Sign Vital Signs Vital Signs Date Time Temp Pulse Resp B/P (MAP) Pulse Ox O2 Delivery O2 Flow Rate FiO2 11/02/19 08:34 Nasal Cannula 2.0 11/02/19 08:00 66 101/40 11/02/19 07:00 97.9 18 98 97.9 Physical Exam PHYSICAL EXAM GENERAL: Propped up in bed, alert, coop HEENT: Oral mucosa moist. nml conj NECK: Supple LUNGS: Clear bilaterally. No wheezing. HEART: S1, S2. No gallops or murmurs. ABDOMEN: Soft, obese. Bowel sounds present, nontender, nondistended. EXTREMITIES: Right LE bandaged NEUROLOGIC: Alert and oriented x 3, grossly nonfocal. PSYCHIATRIC: Cooperative, appropriate mood and affect DERMATOLOGIC: Warm, dry. No generalized rash. PICC - RUE looks clean Labs Lab Laboratory Tests Test 11/02/19 06:12 White Blood Count 11.6 x10^3/uL (4.0-11.0) Red Blood Count 2.67 x10^6/uL (3.50-5.40) Hemoglobin 7.1 g/dL (12.0-15.5) Hematocrit 22.3 % (36.0-47.0) Mean Corpuscular Volume 84 fL (79-100) Mean Corpuscular Hemoglobin 27 pg (25-35) Mean Corpuscular Hemoglobin Concent 32 g/dL (31-37) Red Cell Distribution Width 15.8 % (11.5-14.5) Platelet Count 355 x10^3/uL (140-400) Neutrophils (%) (Auto) 72 % (31-73) Lymphocytes (%) (Auto) 19 % (24-48) Monocytes (%) (Auto) 7 % (0-9) Eosinophils (%) (Auto) 1 % (0-3) Basophils (%) (Auto) 0 % (0-3) Neutrophils # (Auto) 8.4 x10^3/uL (1.8-7.7) Lymphocytes # (Auto) 2.2 x10^3/uL (1.0-4.8) Monocytes # (Auto) 0.9 x10^3/uL (0.0-1.1) Eosinophils # (Auto) 0.1 x10^3/uL (0.0-0.7) Basophils # (Auto) 0.0 x10^3/uL (0.0-0.2) Sodium Level 138 mmol/L (136-145) Potassium Level 5.4 mmol/L (3.5-5.1) Chloride Level 104 mmol/L (98-107) Carbon Dioxide Level 30 mmol/L (21-32) Anion Gap 4 (6-14) Blood Urea Nitrogen 33 mg/dL (7-20) Creatinine 0.9 mg/dL (0.6-1.0) Estimated GFR (Cockcroft-Gault) 61.9 BUN/Creatinine Ratio 37 (6-20) Glucose Level 145 mg/dL (70-99) Calcium Level 8.3 mg/dL (8.5-10.1) Total Bilirubin 0.4 mg/dL (0.2-1.0) Aspartate Amino Transf (AST/SGOT) 20 U/L (15-37) Alanine Aminotransferase (ALT/SGPT) 39 U/L (14-59) Alkaline Phosphatase 75 U/L (46-116) Total Protein 4.7 g/dL (6.4-8.2) Albumin 2.1 g/dL (3.4-5.0) Albumin/Globulin Ratio 0.8 (1.0-1.7) Micro ANTIMICROBIAL SUSCEPTIBILITY Final Comment Comment POS TANYA TYPE 38 STAPHYLOCOCCUS AUREUS (MRSA) ANTIBIOTIC RESULT INTERPRETATION AZITHROMYCIN >4 R CLINDAMYCIN >4 R CEFOXITIN SCREEN >4 POS CIPROFLOXACIN >2 R CEFTAROLINE 1 S CONTINUED ON NEXT PAGE --------- --- RUN DATE: 10/26/19 [facility] *LIVE* PAGE 2 RUN TIME: 1123 Specimen Inquiry SPEC: [id number] PATIENT: GREYSON VELEZ [id number] (Continued) Procedure Result ANTIMICROBIAL SUSCEPTIBILITY Final (continued) DAPTOMYCIN <=0.5 S ERYTHROMYCIN >4 R GENTAMICIN <=4 S LINEZOLID 2 S LEVOFLOXACIN >4 R OXACILLIN >2 R PENICILLIN >2 R* RIFAMPIN <=1 S TRIMETHOPRIM/SULFAMETHOXAZOLE <=0.5/9.5 S TETRACYCLINE <=4 S VANCOMYCIN 1 S NEG TANYA 56 ACINETOBACTER BAU/NOS GROUP ANTIBIOTIC RESULT INTERPRETATION AMPICILLIN/SULBACTAM >16/8 R AMIKACIN >32 R CEFTRIAXONE >32 R CEFTAZIDIME >16 R CEFOTAXIME >32 R CIPROFLOXACIN >2 R CEFEPIME >16 R GENTAMICIN >8 R LEVOFLOXACIN >4 R MINOCYCLINE >8 R MEROPENEM >8 R TRIMETHOPRIM/SULFAMETHOXAZOLE >2/38 R TOBRAMYCIN >8 R Unless otherwise specified, Testing Performed by: Microbiology 10/27/19 Blood Culture - Preliminary, Resulted NO GROWTH AFTER 3 DAYS 10/24/19 Gram Stain - Final, Complete 10/24/19 Aerobic and Anaerobic Culture - Final, Complete 10/23/19 Gram Stain - Final, Complete 10/23/19 Aerobic Culture - Final, Complete 10/23/19 Antimicrobic Susceptibility - Final, Complete Objective Assessment Very complicated case S/p BRYAN 10/31 prelim report - neg Veg official report pending S/p R AKA 10/29 Leukocytosis - post op and post Dexamethasone - better MRSA bacteremia, POA (4 out of 4 bottles) 10/22/2019 source right knee infection. -repeat BC 10/23, 10/25 and 10/26 neg to date Right knee infection with drainage from last surgery with wound vac -Oct 23 2019 Cultures positive for MRSA AND XMDRO ACINETOBACTER BAU/NOS GROUP - Oct 23 cultures not reported yet,pending ,d/w micro today -On Oct 24, 2019 s/p I&D with removal of existing antibiotic spacer, extensive debridement and fashioning of rigid antibiotic spacer and placement -Operative findings same with superficial cloudy drainage, no gross evidence of deep infection or osteomyelitis. 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 -Status post synovial aspirate at [facility] October 13, 2019. Positive for acinetobacter bau (Unasyn-S) and VRE (also resistent to ampicillin, tetra, Dapto and intermediate to linazolid) She was initially scheduled to have a revision/placement of abx spacer on Dec [address] Persaud -08/15/2019 s/p removal of right knee joint implant and plate and screw hardware with debridement and placement of nonarticulating antibiotic spacer, cultures, s/p I and D with hematoma evacuation and revision of antibiotic spacer. Cultures negative -07/25/2019 status post I and D, right knee with poly exchange and extensive mechanism repair done. -07/25/2019, intraoperative cultures positive for Corynebacterium species, sensitive to meropenem and daptomycin. Treated through September 26, 2019 H/o Right TKA 08/25/2016 History of renal cancer, status post left nephrectomy with mild renal insufficiency. Diabetes mellitus. Hypertension. Obesity. Gastroesophageal reflux disease. ALLERGIES TO SULFA, CEPHALEXIN, has tolerated amoxicillin. Protein-calorie malnutrition. Generalized debility Plan Plan of Care S/p Dexamethasone 10/29 F/u official BRYAN report Continue daptomycin (CK25 10/26) and tigecycline for now wean tigecycline in next day Awaiting eravacycline and tigecycline susceptibility for XMDRO Acinetobacter but source of infection has been removed Micro data from [facility] reviewed. Remains at risk of other comorbidities including distant metastatic infection from MRSA bacteremia Monitor for antimicrobial toxicities. Follow-up repeat blood cultures, from 10/23 negative so far Monitor labs Wound care as directed Contact isolation for MRSA & XMDROs D/w nursing and Dr. Benz and son MARIA INES ZARAGOZA MD Nov 02, 2019 10:58
[2019-11-02 11:00] VITALS: BP 87/45
[2019-11-02] MEDS: EZETIMIBE 10 MG TABLET. PO SCH (11:00)
[2019-11-02] MEDS: DULoxetine HCL 30 MG CAPSULE.DR PO SCH ×2 (11:00→20:44)
[2019-11-02] MEDS: LACTOBACILLUS RHAMNOSUS GG 1 CAPSULE. PO SCH ×2 (11:00→20:44)
[2019-11-02] MEDS: ASCORBIC ACID 500 MG TABLET PO SCH (11:00)
[2019-11-02] MEDS: MULTIVITAMIN with MINERAL TABLET. PO SCH (11:00)
[2019-11-02] MEDS: CITALOPRAM 20 MG TABLET. PO SCH (11:00)
[2019-11-02] MEDS: HYDROmorphone 4 MG TABLET PO PRN ×2 (11:17→18:23)
[2019-11-02] MEDS: DOCUSATE SODIUM 100 MG CAPSULE. PO PRN (11:17)
[2019-11-02] MEDS ORDERED: POLYETHYLENE GLYCOL 3350 17 GM PACKET. PO PRN (11:45)
--- NOTE | 2019-11-02 12:17 | RAD ---
Exam: Fluoroscopic and ultrasound guided right percutaneous inserted central venous catheter placement 11/02/2019 10:14 AM .Indication: contact Technique: Informed oral and written consent were obtained. The right upper extremity was prepped and draped using sterile barrier technique. All elements of maximal sterile barrier technique including the use of a cap, mask, sterile gown, sterile gloves, large sterile sheet, appropriate hand hygiene, and 2% chlorhexidine for cutaneous antisepsis (or acceptable alternative antiseptic per current guidelines) were followed for this procedure.. Real-time ultrasound demonstrated a patent right basilic vein which was prepped and draped in usual sterile fashion. 1% lidocaine used for local anesthesia. Using real-time ultrasound guidance the access needle percutaneously punctured the selected right basilic vein. Reference ultrasound images were saved to the medical record. A guidewire was advanced through the needle to the cavoatrial junction, and a peel-away sheath placed. The catheter was cut to length and inserted through the peel-away sheath such that its tip is at the cavoatrial junction. The wire and sheath were removed, and the catheter secured in place, and a sterile dressing was applied. Catheter was found to flush and aspirate normally. No immediate complications are identified. FLUORO TIME: 0.5 DOSE AREA PRODUCT: 1 Gycm2 Impression: Ultrasound and fluoroscopically guided placement of a right upper extremity PICC line.
--- NOTE | 2019-11-02 14:51 | PDOC ---
[employer] PROGRESS NOTE Date of Service DOS: DATE: 11/02/19 TIME: 14:48 Chief Complaint Chief Complaint Irrigation debridement of right knee with removal existing antibiotic spacer extensive debridement and fashioning of rigid antibiotic spacer and placement Cultures positive STAPHYLOCOCCUS AUREUS AND XMDROACINETOBACTER BAU/NOS GROUP( R TO MERREM, MINOCYCLINE, Unasyn , Bactrim) acute on ongoing knee pain, knee infection sepsis right knee joint infection s/p replacement, with spacer, obesity, BMI 38 , severe protein-caloric malnutrition htn depression d/w rn ID FOLLOWING IV DAPTOMYCIN CONT VAC for her to try to avoid any accumulation of fluid to avoid the swelling and pain that she had experienced previously History of Present Illness History of Present Illness 10/29: To right AKA with Orthopedic surgery 10/30: BRYAN can be performed any time. She has pain that is so severe she continues to black out regularly. No chest pain or SOB. WBC 22. Hb stable. 10/31: Having some phantom right leg pain today. Overall she is more comfortable. She is stressing as her missed dialysis yesterday and was found wandering at 10:30 PM thinking it was 5:30 AM. WBC down to 15.8, Hb dropped into the 7s. To BRYAN today. D/w ID will need PICC for MRSA bacteremia Less pain. Better today. Asking for increased frequency of pain medications. D/w son bedside that LTACH is appropriate given her wound and IV antibiotics needs. WBC improved. K 5.4. No BM in 2 days. Plan: LTACH referral Cont antibiotics via PICC Bowel regimen Vitals/I&O Vitals/I&O: Vital Signs Date Time Temp Pulse Resp B/P (MAP) Pulse Ox O2 Delivery O2 Flow Rate FiO2 11/02/19 14:41 98 Nasal Cannula 2.0 11/02/19 11:00 98.1 71 18 87/45 (59) 98.1 I & O 11/01/19 11/01/19 11/02/19 15:00 23:00 07:00 Intake Total 550 ml 100 ml Output Total 300 ml Balance 550 ml 100 ml -300 ml Physical Exam Physical Exam: GENERAL: Propped up in bed, alert, coop HEENT: Oral mucosa moist. nml conj NECK: Supple LUNGS: Clear bilaterally. No wheezing. HEART: S1, S2. No gallops or murmurs. ABDOMEN: Soft, obese. Bowel sounds present, nontender, nondistended. EXTREMITIES: Right LE bandaged NEUROLOGIC: Alert and oriented x 3, grossly nonfocal. PSYCHIATRIC: Cooperative, appropriate mood and affect DERMATOLOGIC: Warm, dry. No generalized rash. PICC - RUE looks clean General: Alert, Oriented X3, Cooperative, No acute distress Heart: Regular rate, Normal S1, Normal S2, No murmurs Lungs: Clear Abdomen: Normal bowel sounds Extremities: No clubbing, No cyanosis, Other Skin: No significant lesion, Other (irritation and drainage at knee) Labs Labs: Laboratory Tests Test 11/02/19 06:12 White Blood Count 11.6 x10^3/uL (4.0-11.0) Red Blood Count 2.67 x10^6/uL (3.50-5.40) Hemoglobin 7.1 g/dL (12.0-15.5) Hematocrit 22.3 % (36.0-47.0) Mean Corpuscular Volume 84 fL (79-100) Mean Corpuscular Hemoglobin 27 pg (25-35) Mean Corpuscular Hemoglobin Concent 32 g/dL (31-37) Red Cell Distribution Width 15.8 % (11.5-14.5) Platelet Count 355 x10^3/uL (140-400) Neutrophils (%) (Auto) 72 % (31-73) Lymphocytes (%) (Auto) 19 % (24-48) Monocytes (%) (Auto) 7 % (0-9) Eosinophils (%) (Auto) 1 % (0-3) Basophils (%) (Auto) 0 % (0-3) Neutrophils # (Auto) 8.4 x10^3/uL (1.8-7.7) Lymphocytes # (Auto) 2.2 x10^3/uL (1.0-4.8) Monocytes # (Auto) 0.9 x10^3/uL (0.0-1.1) Eosinophils # (Auto) 0.1 x10^3/uL (0.0-0.7) Basophils # (Auto) 0.0 x10^3/uL (0.0-0.2) Sodium Level 138 mmol/L (136-145) Potassium Level 5.4 mmol/L (3.5-5.1) Chloride Level 104 mmol/L (98-107) Carbon Dioxide Level 30 mmol/L (21-32) Anion Gap 4 (6-14) Blood Urea Nitrogen 33 mg/dL (7-20) Creatinine 0.9 mg/dL (0.6-1.0) Estimated GFR (Cockcroft-Gault) 61.9 BUN/Creatinine Ratio 37 (6-20) Glucose Level 145 mg/dL (70-99) Calcium Level 8.3 mg/dL (8.5-10.1) Total Bilirubin 0.4 mg/dL (0.2-1.0) Aspartate Amino Transf (AST/SGOT) 20 U/L (15-37) Alanine Aminotransferase (ALT/SGPT) 39 U/L (14-59) Alkaline Phosphatase 75 U/L (46-116) Total Protein 4.7 g/dL (6.4-8.2) Albumin 2.1 g/dL (3.4-5.0) Albumin/Globulin Ratio 0.8 (1.0-1.7) Assessment and Plan Assessmemt and Plan Problems Medical Problems: (1) Fever Status: Acute (2) Hypokalemia Status: Acute (3) Right knee pain Status: Acute (4) Sepsis Status: Acute Comment Review of Relevant I have reviewed the following items dieter (where applicable) has been applied. Justicifation of Admission Dx: Justifications for Admission: Justification of Admission Dx: N/A Sepsis: Infection ZACHARIAH LOPEZ MD Nov 02, 2019 14:51
[2019-11-02 15:00] VITALS: BP 99/40
[2019-11-02] MEDS: PSYLLIUM HUSK (SUGAR FREE) 1 PKT PACKET PO SCH (16:14)
--- NOTE | 2019-11-02 17:48 | CARD ---
MR#: [id number] Date of Study: 11/01/2019 Ordering Physician: CAMPOS RODRIGUEZ, Referring Physician: CAMPOS RODRIGUEZ, Tech: Charu Hutchison APPROVED REPORT EXAM: Two-dimensional and M-mode echocardiogram with Doppler and color Doppler. INDICATION Bacteremia Sepsis Reason For Test : Rule out Intracardiac Thrombus. PROCEDURE After obtaining informed consent, patient underwent transesophageal echo in the PACU. Type of Sedation : General Anesthesia Sedation was administered by Thaddeus Yanez. Sedation was achieved with Propofol 140mg intravenously. Transesophageal probe was inserted and advanced into esophagus by Campos Rodriguez MD. The BRYAN was performed without complications. Throughout the procedure, the blood pressure, pulse oximetry, cardiac rhythm, and rate were monitored . The patient tolerated the procedure without adverse effects. Recovery from general anesthesia was une ventful and vital signs were stable. LEFT VENTRICLE The left ventricle is normal size. There is normal left ventricular wall thickness. The left ventricu lar systolic function is normal and the ejection fraction is within normal range. There is normal LV segmental wall motion. No left ventricle thrombus noted on this study. RIGHT VENTRICLE The right ventricle is normal size. There is normal right ventricular wall thickness. The right ventr icular systolic function is normal. ATRIA The left atrium size is normal. The right atrium size is normal. There is a relatively thin and long echodense image extending from the superior vena cava into the right atrium. It does not appear to be attached to a valve or the right atrium. This is suggestive of a thrombus although an atypical veget ation cannot be entirely excluded. AORTIC VALVE The aortic valve is normal in structure and function. Doppler and Color Flow revealed no significant aortic regurgitation. There is no significant aortic valvular stenosis. There is no aortic valvular v egetation. MITRAL VALVE The mitral valve is normal in structure and function. There is no mitral valve stenosis. Doppler and Color Flow revealed trace mitral valve regurgitation. TRICUSPID VALVE The tricuspid valve is normal in structure and function. Doppler and Color Flow revealed trace tricus pid regurgitation. There is no tricuspid valve stenosis. PULMONIC VALVE The pulmonary valve is normal in structure and function. There is no pulmonic valvular stenosis. GREAT VESSELS The aortic root is normal in size. PERICARDIAL EFFUSION There is no evidence of significant pericardial effusion. Critical Notification Critical Value: No <Conclusion> The left ventricle is normal size. The left ventricular systolic function is normal and the ejection fraction is within normal range. There is normal LV segmental wall motion. The right atrium size is normal. There is a relatively thin and long echodense image extending from the superior vena cava into the ri ght atrium. It does not appear to be attached to a valve. This is suggestive of a thrombus although an atypical or included vegetation cannot be entirely excluded. Doppler and Color Flow revealed no significant aortic regurgitation. There is no significant aortic valvular stenosis. The mitral valve is normal in structure and function. Doppler and Color Flow revealed trace mitral valve regurgitation. Doppler and Color Flow revealed trace tricuspid regurgitation. The pulmonary valve is normal in structure and function. The test shows no clear vegetations. There is an echodense image in the right atrium as outlined abo ve. Signed by : Campos Rodriguez MD Electronically Approved : 11/02/2019 17:47:52
[2019-11-02 19:00] VITALS: BP 106/43
--- NOTE | 2019-11-02 19:33 | NUR ---
Patient was very emotional today. I sat at bedside and let patient talk about what was bothering her for about 15 - 20 minutes today. This did seem to help. Patient is struggling with pain management. All blood pressure medications held today due to high doses of pain medication dropping blood pressure.
[2019-11-02] MEDS: DAPTOmycin (GENERIC) IVPB 480 MG in IV NORMAL SALINE 50ML 50 ML IV SCH (20:43)
[2019-11-02] MEDS: ENOXAPARIN 40 MG/0.4 ML SYRINGE. SQ SCH (20:44)
[2019-11-02] MEDS: PANTOPRAZOLE 40 MG TABLET.DR. PO SCH (20:44)
[2019-11-02 23:00] VITALS: BP 100/55
[2019-11-03] VITALS (13 sets, daily range): BP systolic 90–125; BP diastolic 34–82
--- NOTE | 2019-11-03 00:09 | PN ---
DATE: 11/02/2019 DAILY PROGRESS NOTE HISTORY OF PRESENT ILLNESS: The patient is followup from a right mfvjn-jsi-[id number] amputation and indicates that she has had significant phantom pain, but overall the pain that she is having now is still less than what it was with her postoperative from the knee spacer with some muscle spasms and other problems. PHYSICAL EXAMINATION: EXTREMITIES: On examination, her Ioban dressing is intact and there is no visible drainage on the dressing field underneath. Likewise, no redness or warmth present. IMPRESSION: Postop right above-knee amputation. TREATMENT PLAN: I discussed at some length with her the ongoing plans of a wound care and staple removal when healed and eventually a stump bowling ball molder to decrease swelling and repair of the stump for prosthesis fitting later as it matures. Regarding the phantom pain, there is no specific cure for this; however, we could consider multimodal pain management and if this does not resolve in the future, the possibility even of a pain clinic consultation and any treatment that they deem appropriate. Otherwise, she can continue to undergo medical management as she has had a negative transesophageal echo and antibiotics are being administered per Infectious Disease direction. Finally, in discussing her situation with her nurse, apparently her son was upset with some considerations in her treatment and I told her that while I was not directly available in clinic or in the hospital today due to being at an outside clinic, but I am certainly available today by cell phone if he wishes to include me or has any specific questions for me along with the planned meeting with Dr. Benz to address the son's ongoing concerns. As for the patient herself, all her questions were answered and we will continue wound antibiotic care and medical management in the interim as all her concerns have been addressed. LESLIE PEREZ MD DR: VINCE/sherry JOB#: [id number] / [id number]
[2019-11-03] MEDS: DOCUSATE SODIUM 100 MG CAPSULE. PO PRN (05:10)
[2019-11-03] MEDS: HYDROmorphone 4 MG TABLET PO PRN ×2 (05:11→11:25)
[2019-11-03] MEDS: IV NORMAL SALINE 1000ML BAG 1,000 ML IV SCH ×2 (05:12→13:49)
[2019-11-03] MEDS: POTASSIUM CHLORIDE 10 MEQ TABLET.ER. PO SCH (08:00)
[2019-11-03] MEDS: TIGECYCLINE 50 MG in IV DEXTROSE 5% 50 ML IV SCH (09:01)
[2019-11-03] MEDS: EZETIMIBE 10 MG TABLET. PO SCH (09:01)
[2019-11-03] MEDS: CITALOPRAM 20 MG TABLET. PO SCH (09:02)
[2019-11-03] MEDS: LACTOBACILLUS RHAMNOSUS GG 1 CAPSULE. PO SCH ×2 (09:04→21:11)
[2019-11-03] MEDS: ASCORBIC ACID 500 MG TABLET PO SCH (09:04)
[2019-11-03] MEDS: DULoxetine HCL 30 MG CAPSULE.DR PO SCH ×2 (09:04→21:11)
[2019-11-03] MEDS: MULTIVITAMIN with MINERAL TABLET. PO SCH (09:04)
--- NOTE | 2019-11-03 09:13 | PDOC ---
[facility] PROGRESS NOTE Date of Service DOS: DATE: 11/03/19 TIME: 09:13 Chief Complaint Chief Complaint Irrigation debridement of right knee with removal existing antibiotic spacer extensive debridement and fashioning of rigid antibiotic spacer and placement Cultures positive STAPHYLOCOCCUS AUREUS AND XMDROACINETOBACTER BAU/NOS GROUP( R TO MERREM, MINOCYCLINE, Unasyn , Bactrim) acute on ongoing knee pain, knee infection sepsis right knee joint infection s/p replacement, with spacer, obesity, BMI 38 , severe protein-caloric malnutrition htn depression d/w rn ID FOLLOWING IV DAPTOMYCIN CONT VAC for her to try to avoid any accumulation of fluid to avoid the swelling and pain that she had experienced previously History of Present Illness History of Present Illness 10/29: To right AKA with Orthopedic surgery 10/30: BRYAN can be performed any time. She has pain that is so severe she continues to black out regularly. No chest pain or SOB. WBC 22. Hb stable. 10/31: Having some phantom right leg pain today. Overall she is more comfortable. She is stressing as her missed dialysis yesterday and was found wandering at 10:30 PM thinking it was 5:30 AM. WBC down to 15.8, Hb dropped into the 7s. To BRYAN today. D/w ID will need PICC for MRSA bacteremia 11/01: Less pain. Better today. Asking for increased frequency of pain medications. D/w son bedside that LTACH is appropriate given her wound and IV antibiotics needs. WBC improved. K 5.4. No BM in 2 days. Hb 6 today. CK 54. No BM in 3 days but feeling the urge. Working better with PT. BRYAN RESULTS: The left ventricle is normal size. The left ventricular systolic function is normal and the ejection fraction is within normal range. There is normal LV segmental wall motion. The right atrium size is normal. There is a relatively thin and long echodense image extending from the superior vena cava into the right atrium. It does not appear to be attached to a valve. This is suggestive of a thrombus although an atypical or included vegetation cannot be entirely excluded. Doppler and Color Flow revealed no significant aortic regurgitation. There is no significant aortic valvular stenosis. The mitral valve is normal in structure and function. Doppler and Color Flow revealed trace mitral valve regurgitation. Doppler and Color Flow revealed trace tricuspid regurgitation. The pulmonary valve is normal in structure and function. The test shows no clear vegetations. There is an echodense image in the right atrium as outlined above. Plan: LTACH referral Cont antibiotics via PICC Bowel regimen Transfuse Vitals/I&O Vitals/I&O: Vital Signs Date Time Temp Pulse Resp B/P (MAP) Pulse Ox O2 Delivery O2 Flow Rate FiO2 11/03/19 03:00 97.8 71 20 93/39 (57) 98 Room Air 97.8 11/02/19 23:00 4.0 I & O 11/02/19 11/02/19 11/03/19 14:59 22:59 06:59 Intake Total 50 ml Output Total 300 ml 500 ml 1 ml Balance -250 ml -500 ml -1 ml Physical Exam Physical Exam: GENERAL: Propped up in bed, alert, coop HEENT: Oral mucosa moist. nml conj NECK: Supple LUNGS: Clear bilaterally. No wheezing. HEART: S1, S2. No gallops or murmurs. ABDOMEN: Soft, obese. Bowel sounds present, nontender, nondistended. EXTREMITIES: Right LE bandaged NEUROLOGIC: Alert and oriented x 3, grossly nonfocal. PSYCHIATRIC: Cooperative, appropriate mood and affect DERMATOLOGIC: Warm, dry. No generalized rash. PICC - RUE looks clean General: Alert, Oriented X3, Cooperative, No acute distress Heart: Regular rate, Normal S1, Normal S2, No murmurs Lungs: Clear Abdomen: Normal bowel sounds Extremities: No clubbing, No cyanosis, Other Skin: No significant lesion, Other (irritation and drainage at knee) Assessment and Plan Assessmemt and Plan Problems Medical Problems: (1) Fever Status: Acute (2) Hypokalemia Status: Acute (3) Right knee pain Status: Acute (4) Sepsis Status: Acute Comment Review of Relevant I have reviewed the following items dieter (where applicable) has been applied. Medications: Current Medications Medications (Trade) Dose Ordered Sig/Hina Route PRN Reason Start Time Stop Time Status Last Admin Dose Admin Psyllium Hydrophilic Mucilloid (Metamucil Fiber Packet) 1 pkt DAILY16 PO 11/02/19 16:00 11/02/19 16:14 Hydromorphone HCl (Dilaudid) 1 mg PRN Q2HRS PRN IV MODERATE PAIN 11/02/19 15:00 11/02/19 18:21 Justicifation of Admission Dx: Justifications for Admission: Justification of Admission Dx: N/A Sepsis: Infection ZACHARIAH LOPEZ MD Nov 03, 2019 09:13
--- NOTE | 2019-11-03 10:35 | PDOC ---
Infectious Disease Note Subjective Subjective Less pain. Better today Stood yesterday and this am No BM but feels close Denies fever/chills/N/V/SOA/rash Vital Sign Vital Signs Vital Signs Date Time Temp Pulse Resp B/P (MAP) Pulse Ox O2 Delivery O2 Flow Rate FiO2 11/03/19 07:00 98.0 65 17 104/49 (67) 100 Nasal Cannula 2.0 98.0 Physical Exam PHYSICAL EXAM GENERAL: Propped up in bed, alert, coop HEENT: Oral mucosa moist. nml conj NECK: Supple LUNGS: Clear bilaterally. No wheezing. HEART: S1, S2. No gallops or murmurs. ABDOMEN: Soft, obese. Bowel sounds present, nontender, nondistended. EXTREMITIES: Right LE bandaged NEUROLOGIC: Alert and oriented x 3, grossly nonfocal. PSYCHIATRIC: Cooperative, appropriate mood and affect DERMATOLOGIC: Warm, dry. No generalized rash. PICC - RUE looks clean Labs Micro The left ventricle is normal size. The left ventricular systolic function is normal and the ejection fraction is within normal range. There is normal LV segmental wall motion. The right atrium size is normal. There is a relatively thin and long echodense image extending from the superior vena cava into the right atrium. It does not appear to be attached to a valve. This is suggestive of a thrombus although an atypical or included vegetation cannot be entirely excluded. Doppler and Color Flow revealed no significant aortic regurgitation. There is no significant aortic valvular stenosis. The mitral valve is normal in structure and function. Doppler and Color Flow revealed trace mitral valve regurgitation. Doppler and Color Flow revealed trace tricuspid regurgitation. The pulmonary valve is normal in structure and function. The test shows no clear vegetations. There is an echodense image in the right atrium as outlined above. FINAL ID= [ACINETOBACTER BAU/NOS GROUP] [ACINETOBACTER BAU/NOS GROUP] SENSITIVITY TIGECYCLINE =2 NO INTERPREATIVE BREAKPOINT PER CLSI ANTIMICROBIAL SUSCEPTIBILITY Final Comment Comment POS TANYA TYPE 38 STAPHYLOCOCCUS AUREUS (MRSA) ANTIBIOTIC RESULT INTERPRETATION AZITHROMYCIN >4 R CLINDAMYCIN >4 R CEFOXITIN SCREEN >4 POS CIPROFLOXACIN >2 R CEFTAROLINE 1 S CONTINUED ON NEXT PAGE RUN DATE: 10/26/19 [facility] *LIVE* PAGE 2 RUN TIME: 1123 Specimen Inquiry --------- --- SPEC: [id number] PATIENT: STARR VELEZPEBBLESFabiola Martínez [id number] (Continued) Procedure Result ANTIMICROBIAL SUSCEPTIBILITY Final (continued) DAPTOMYCIN <=0.5 S ERYTHROMYCIN >4 R GENTAMICIN <=4 S LINEZOLID 2 S LEVOFLOXACIN >4 R OXACILLIN >2 R PENICILLIN >2 R* RIFAMPIN <=1 S TRIMETHOPRIM/SULFAMETHOXAZOLE <=0.5/9.5 S TETRACYCLINE <=4 S VANCOMYCIN 1 S NEG TANYA 56 ACINETOBACTER BAU/NOS GROUP ANTIBIOTIC RESULT INTERPRETATION AMPICILLIN/SULBACTAM >16/8 R AMIKACIN >32 R CEFTRIAXONE >32 R CEFTAZIDIME >16 R CEFOTAXIME >32 R CIPROFLOXACIN >2 R CEFEPIME >16 R GENTAMICIN >8 R LEVOFLOXACIN >4 R MINOCYCLINE >8 R MEROPENEM >8 R TRIMETHOPRIM/SULFAMETHOXAZOLE >2/38 R TOBRAMYCIN >8 R Unless otherwise specified, Testing Performed by: Microbiology 10/27/19 Blood Culture - Preliminary, Resulted NO GROWTH AFTER 3 DAYS 10/24/19 Gram Stain - Final, Complete 10/24/19 Aerobic and Anaerobic Culture - Final, Complete 10/23/19 Gram Stain - Final, Complete 10/23/19 Aerobic Culture - Final, Complete 10/23/19 Antimicrobic Susceptibility - Final, Complete Objective Assessment Very complicated case S/p BRYAN 10/31 neg Veg on valve but here is a relatively thin and long echodense image extending from the superior vena cava into the right atrium. It does not appear to be attached to a valve. This is suggestive of a thrombus although an atypical or included vegetation cannot be entirely excluded S/p R AKA 10/29 Leukocytosis - post op and post Dexamethasone - better MRSA bacteremia, POA (4 out of 4 bottles) 10/22/2019 source right knee infection. -repeat BC 10/23, 10/25 and 10/26 neg to date Right knee infection with drainage from last surgery with wound vac -Oct 23 2019 Cultures positive for MRSA AND XMDRO ACINETOBACTER BAU/NOS GROUP - Oct 23 cultures not reported yet,pending ,d/w micro today -On Oct 24, 2019 s/p I&D with removal of existing antibiotic spacer, extensive debridement and fashioning of rigid antibiotic spacer and placement -Operative findings same with superficial cloudy drainage, no gross evidence of deep infection or osteomyelitis. 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 -Status post synovial aspirate at [facility] October 13, 2019. Positive for acinetobacter bau (Unasyn-S) and VRE (also resistent to ampicillin, tetra, Dapto and intermediate to linazolid) She was initially scheduled to have a revision/placement of abx spacer on Dec [address] Persaud -08/15/2019 s/p removal of right knee joint implant and plate and screw hardware with debridement and placement of nonarticulating antibiotic spacer, cultures, s/p I and D with hematoma evacuation and revision of antibiotic spacer. Cultures negative -07/25/2019 status post I and D, right knee with poly exchange and extensive mechanism repair done. -07/25/2019, intraoperative cultures positive for Corynebacterium species, sensitive to meropenem and daptomycin. Treated through September 26, 2019 H/o Right TKA 08/25/2016 History of renal cancer, status post left nephrectomy with mild renal insufficiency. Diabetes mellitus. Hypertension. Obesity. Gastroesophageal reflux disease. ALLERGIES TO SULFA, CEPHALEXIN, has tolerated amoxicillin. Protein-calorie malnutrition. Generalized debility Plan Plan of Care S/p Dexamethasone 10/29 Continue daptomycin (CK25 10/26) Add CK to today's labs D/c tigecycline Micro data from [facility] reviewed. Remains at risk of other comorbidities including distant metastatic infection from MRSA bacteremia Monitor for antimicrobial toxicities. Follow-up repeat blood cultures, from 10/23 negative so far Monitor labs Wound care as directed Contact isolation for MRSA & XMDROs D/w nursing and Dr. Benz and MARIA INES Ellison MD Nov 03, 2019 10:35
[2019-11-03 11:27] LABS: BASO % 0 % (0-3); EOS # 0.1 x10^3/uL (0.0-0.7); EOS % 1 % (0-3); LYMPH # 1.8 x10^3/uL (1.0-4.8); LYMPH % 16 % (24-48); MEAN CORPUSCULAR HEMOGLOBIN 27 pg (25-35); MEAN CORPUSCULAR HGB CONC 32 g/dL (31-37); MEAN CORPUSCULAR VOLUME 84 fL (79-100); MONO # 0.7 x10^3/uL (0.0-1.1); MONO % 6 % (0-9); NEUT # 8.7 x10^3/uL (1.8-7.7); NEUT % 77 % (31-73); PLATELET COUNT 309 x10^3/uL (140-400); RED BLOOD COUNT 2.25 x10^6/uL (3.50-5.40); RED CELL DISTRIBUTION WIDTH 15.8 % (11.5-14.5); WHITE BLOOD COUNT 11.4 x10^3/uL (4.0-11.0)
[2019-11-03] MEDS: TRIAMTERENE/HCTZ 37.5/25MG TABLET. PO SCH (11:30)
[2019-11-03] MEDS: CARVEDILOL 6.25 MG TABLET. PO SCH ×2 (11:31→16:43)
[2019-11-03 11:32] LABS: HEMATOCRIT 18.9 % (36.0-47.0)
[2019-11-03 11:48] LABS: ALBUMIN 1.6 g/dL (3.4-5.0); ALBUMIN/GLOBULIN RATIO 0.7 (1.0-1.7); CALCIUM 6.6 mg/dL (8.5-10.1); GFR 54.8; POTASSIUM 3.7 mmol/L (3.5-5.1); TOTAL BILIRUBIN 0.3 mg/dL (0.2-1.0); TOTAL PROTEIN 3.9 g/dL (6.4-8.2)
[2019-11-03] MEDS: PSYLLIUM HUSK (SUGAR FREE) 1 PKT PACKET PO SCH (16:42)
[2019-11-03] MEDS: DAPTOmycin (GENERIC) IVPB 480 MG in IV NORMAL SALINE 50ML 50 ML IV SCH (21:09)
[2019-11-03] MEDS: PANTOPRAZOLE 40 MG TABLET.DR. PO SCH (21:11)
[2019-11-03] MEDS: ENOXAPARIN 40 MG/0.4 ML SYRINGE. SQ SCH (21:11)
[2019-11-04 00:50] VITALS: BP 112/47
[2019-11-04 02:15] VITALS: BP 111/42
[2019-11-04 03:00] VITALS: BP 133/54
[2019-11-04] MEDS: IV NORMAL SALINE 1000ML BAG 1,000 ML IV SCH (04:07)
[2019-11-04 04:46] LABS: BASO # 0.1 x10^3/uL (0.0-0.2); BASO % 1 % (0-3); EOS # 0.2 x10^3/uL (0.0-0.7); EOS % 1 % (0-3); HEMATOCRIT 29.1 % (36.0-47.0); HEMOGLOBIN 9.6 g/dL (12.0-15.5); LYMPH # 1.9 x10^3/uL (1.0-4.8); LYMPH % 15 % (24-48); MEAN CORPUSCULAR HEMOGLOBIN 27 pg (25-35); MEAN CORPUSCULAR HGB CONC 33 g/dL (31-37); MEAN CORPUSCULAR VOLUME 83 fL (79-100); MONO # 0.6 x10^3/uL (0.0-1.1); MONO % 5 % (0-9); NEUT # 10.3 x10^3/uL (1.8-7.7); NEUT % 79 % (31-73); PLATELET COUNT 293 x10^3/uL (140-400); RED CELL DISTRIBUTION WIDTH 15.3 % (11.5-14.5)
[2019-11-04 05:05] LABS: ALBUMIN 1.9 g/dL (3.4-5.0); ALBUMIN/GLOBULIN RATIO 0.7 (1.0-1.7); CALCIUM 7.3 mg/dL (8.5-10.1); CREATININE 0.8 mg/dL (0.6-1.0); GFR 70.9; POTASSIUM 3.7 mmol/L (3.5-5.1); TOTAL BILIRUBIN 0.9 mg/dL (0.2-1.0); TOTAL PROTEIN 4.6 g/dL (6.4-8.2)
[2019-11-04 07:30] VITALS: BP 127/53
--- NOTE | 2019-11-04 08:33 | PDOC ---
Infectious Disease Note Subjective Subjective Pain ok. Better today after PRBCs No BM but feels closer now Denies fever/chills/N/V/SOA/rash ROS ROS o/w neg Vital Sign Vital Signs Vital Signs Date Time Temp Pulse Resp B/P (MAP) Pulse Ox O2 Delivery O2 Flow Rate FiO2 11/04/19 07:30 97.8 60 18 127/53 (77) 97 Nasal Cannula 2.0 97.8 Physical Exam PHYSICAL EXAM GENERAL: Propped up in bed, alert, coop HEENT: Oral mucosa moist. nml conj NECK: Supple LUNGS: Clear bilaterally. No wheezing. HEART: S1, S2. No gallops or murmurs. ABDOMEN: Soft, obese. Bowel sounds present, nontender, nondistended. EXTREMITIES: Right LE bandaged NEUROLOGIC: Alert and oriented x 3, grossly nonfocal. PSYCHIATRIC: Cooperative, appropriate mood and affect DERMATOLOGIC: Warm, dry. No generalized rash. PICC - RUE looks clean Labs Lab Laboratory Tests Test 11/03/19 11:05 11/04/19 04:30 White Blood Count 11.4 x10^3/uL (4.0-11.0) 13.0 x10^3/uL (4.0-11.0) Red Blood Count 2.25 x10^6/uL (3.50-5.40) 3.50 x10^6/uL (3.50-5.40) Hemoglobin 6.0 g/dL (12.0-15.5) 9.6 g/dL (12.0-15.5) Hematocrit 18.9 % (36.0-47.0) 29.1 % (36.0-47.0) Mean Corpuscular Volume 84 fL (79-100) 83 fL (79-100) Mean Corpuscular Hemoglobin 27 pg (25-35) 27 pg (25-35) Mean Corpuscular Hemoglobin Concent 32 g/dL (31-37) 33 g/dL (31-37) Red Cell Distribution Width 15.8 % (11.5-14.5) 15.3 % (11.5-14.5) Platelet Count 309 x10^3/uL (140-400) 293 x10^3/uL (140-400) Neutrophils (%) (Auto) 77 % (31-73) 79 % (31-73) Lymphocytes (%) (Auto) 16 % (24-48) 15 % (24-48) Monocytes (%) (Auto) 6 % (0-9) 5 % (0-9) Eosinophils (%) (Auto) 1 % (0-3) 1 % (0-3) Basophils (%) (Auto) 0 % (0-3) 1 % (0-3) Neutrophils # (Auto) 8.7 x10^3/uL (1.8-7.7) 10.3 x10^3/uL (1.8-7.7) Lymphocytes # (Auto) 1.8 x10^3/uL (1.0-4.8) 1.9 x10^3/uL (1.0-4.8) Monocytes # (Auto) 0.7 x10^3/uL (0.0-1.1) 0.6 x10^3/uL (0.0-1.1) Eosinophils # (Auto) 0.1 x10^3/uL (0.0-0.7) 0.2 x10^3/uL (0.0-0.7) Basophils # (Auto) 0.0 x10^3/uL (0.0-0.2) 0.1 x10^3/uL (0.0-0.2) Sodium Level 136 mmol/L (136-145) 134 mmol/L (136-145) Potassium Level 3.7 mmol/L (3.5-5.1) 3.7 mmol/L (3.5-5.1) Chloride Level 103 mmol/L (98-107) 99 mmol/L (98-107) Carbon Dioxide Level 29 mmol/L (21-32) 31 mmol/L (21-32) Anion Gap 4 (6-14) 4 (6-14) Blood Urea Nitrogen 25 mg/dL (7-20) 22 mg/dL (7-20) Creatinine 1.0 mg/dL (0.6-1.0) 0.8 mg/dL (0.6-1.0) Estimated GFR (Cockcroft-Gault) 54.8 70.9 BUN/Creatinine Ratio 25 (6-20) 28 (6-20) Glucose Level 137 mg/dL (70-99) 117 mg/dL (70-99) Calcium Level 6.6 mg/dL (8.5-10.1) 7.3 mg/dL (8.5-10.1) Total Bilirubin 0.3 mg/dL (0.2-1.0) 0.9 mg/dL (0.2-1.0) Aspartate Amino Transf (AST/SGOT) 19 U/L (15-37) 24 U/L (15-37) Alanine Aminotransferase (ALT/SGPT) 34 U/L (14-59) 42 U/L (14-59) Alkaline Phosphatase 77 U/L (46-116) 89 U/L (46-116) Creatine Kinase 56 U/L (26-192) Total Protein 3.9 g/dL (6.4-8.2) 4.6 g/dL (6.4-8.2) Albumin 1.6 g/dL (3.4-5.0) 1.9 g/dL (3.4-5.0) Albumin/Globulin Ratio 0.7 (1.0-1.7) 0.7 (1.0-1.7) Micro The left ventricle is normal size. The left ventricular systolic function is normal and the ejection fraction is within normal range. There is normal LV segmental wall motion. The right atrium size is normal. There is a relatively thin and long echodense image extending from the superior vena cava into the right atrium. It does not appear to be attached to a valve. This is suggestive of a thrombus although an atypical or included vegetation cannot be entirely excluded. Doppler and Color Flow revealed no significant aortic regurgitation. There is no significant aortic valvular stenosis. The mitral valve is normal in structure and function. Doppler and Color Flow revealed trace mitral valve regurgitation. Doppler and Color Flow revealed trace tricuspid regurgitation. The pulmonary valve is normal in structure and function. The test shows no clear vegetations. There is an echodense image in the right atrium as outlined above. FINAL ID= [ACINETOBACTER BAU/NOS GROUP] [ACINETOBACTER BAU/NOS GROUP] SENSITIVITY TIGECYCLINE =2 NO INTERPREATIVE BREAKPOINT PER CLSI ANTIMICROBIAL SUSCEPTIBILITY Final Comment Comment POS TANYA TYPE 38 STAPHYLOCOCCUS AUREUS (MRSA) ANTIBIOTIC RESULT INTERPRETATION AZITHROMYCIN >4 R CLINDAMYCIN >4 R CEFOXITIN SCREEN >4 POS CIPROFLOXACIN >2 R CEFTAROLINE 1 S CONTINUED ON NEXT PAGE -- RUN DATE: 10/26/19 [facility] LAB *LIVE* PAGE 2 RUN TIME: 1123 Specimen Inquiry SPEC: [id number] PATIENT: GREYSON VELEZ [id number] (Continued) Procedure Result ANTIMICROBIAL SUSCEPTIBILITY Final (continued) DAPTOMYCIN <=0.5 S ERYTHROMYCIN >4 R GENTAMICIN <=4 S LINEZOLID 2 S LEVOFLOXACIN >4 R OXACILLIN >2 R PENICILLIN >2 R* RIFAMPIN <=1 S TRIMETHOPRIM/SULFAMETHOXAZOLE <=0.5/9.5 S TETRACYCLINE <=4 S VANCOMYCIN 1 S NEG TANYA 56 ACINETOBACTER BAU/NOS GROUP ANTIBIOTIC RESULT INTERPRETATION AMPICILLIN/SULBACTAM >16/8 R AMIKACIN >32 R CEFTRIAXONE >32 R CEFTAZIDIME >16 R CEFOTAXIME >32 R CIPROFLOXACIN >2 R CEFEPIME >16 R GENTAMICIN >8 R LEVOFLOXACIN >4 R MINOCYCLINE >8 R MEROPENEM >8 R TRIMETHOPRIM/SULFAMETHOXAZOLE >2/38 R TOBRAMYCIN >8 R Unless otherwise specified, Testing Performed by: Microbiology 10/27/19 Blood Culture - Preliminary, Resulted NO GROWTH AFTER 3 DAYS 10/24/19 Gram Stain - Final, Complete 10/24/19 Aerobic and Anaerobic Culture - Final, Complete 10/23/19 Gram Stain - Final, Complete 10/23/19 Aerobic Culture - Final, Complete 10/23/19 Antimicrobic Susceptibility - Final, Complete Objective Assessment Very complicated case S/p BRYAN 10/31 neg Veg on valve but here is a relatively thin and long echodense image extending from the superior vena cava into the right atrium. It does not appear to be attached to a valve. 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 -repeat BC 10/23, 10/25 and 10/26 neg to date Right knee infection with drainage from last surgery with wound vac -Oct 23 2019 Cultures positive for MRSA AND XMDRO ACINETOBACTER BAU/NOS GROUP - Oct 23 cultures not reported yet,pending ,d/w micro today -On Oct 24, 2019 s/p I&D with removal of existing antibiotic spacer, extensive debridement and fashioning of rigid antibiotic spacer and placement -Operative findings same with superficial cloudy drainage, no gross evidence of deep infection or osteomyelitis. 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 -Status post synovial aspirate at [facility] October 13, 2019. Positive for acinetobacter bau (Unasyn-S) and VRE (also resistent to ampicillin, tetra, Dapto and intermediate to linazolid) She was initially scheduled to have a revision/placement of abx spacer on Dec [address] Persaud -08/15/2019 s/p removal of right knee joint implant and plate and screw hardware with debridement and placement of nonarticulating antibiotic spacer, cultures, s/p I and D with hematoma evacuation and revision of antibiotic spacer. Cultures negative -07/25/2019 status post I and D, right knee with poly exchange and extensive mechanism repair done. -07/25/2019, intraoperative cultures positive for Corynebacterium species, sensitive to meropenem and daptomycin. Treated through September 26, 2019 H/o Right TKA 08/25/2016 History of renal cancer, status post left nephrectomy with mild renal insufficiency. Diabetes mellitus. Hypertension. Obesity. Gastroesophageal reflux disease. ALLERGIES TO SULFA, CEPHALEXIN, has tolerated amoxicillin. Protein-calorie malnutrition. Generalized debility Plan Plan of Care S/p Dexamethasone 10/29 Continue daptomycin (CK25 10/26) Add CK to today's labs D/c tigecycline Micro data from reviewed. Remains at risk of other comorbidities including distant metastatic infection from MRSA bacteremia Monitor for antimicrobial toxicities. Follow-up repeat blood cultures, from 10/23 negative so far Monitor labs Wound care as directed Contact isolation for MRSA & XMDROs To Select - d/w Select 11/02 MARIA INES ZARAGOZA MD Nov 04, 2019 08:33
--- NOTE | 2019-11-04 09:14 | PDOC ---
[employer] PROGRESS NOTE Date of Service DOS: DATE: 11/04/19 TIME: 09:11 Chief Complaint Chief Complaint Irrigation debridement of right knee with removal existing antibiotic spacer extensive debridement and fashioning of rigid antibiotic spacer and placement Cultures positive STAPHYLOCOCCUS AUREUS AND XMDROACINETOBACTER BAU/NOS GROUP( R TO MERREM, MINOCYCLINE, Unasyn , Bactrim) acute on ongoing knee pain, knee infection sepsis right knee joint infection s/p replacement, with spacer, obesity, BMI 38 , severe protein-caloric malnutrition htn depression d/w rn ID FOLLOWING IV DAPTOMYCIN CONT VAC for her to try to avoid any accumulation of fluid to avoid the swelling and pain that she had experienced previously History of Present Illness History of Present Illness 10/29: To right AKA with Orthopedic surgery 10/30: BRYAN can be performed any time. She has pain that is so severe she continues to black out regularly. No chest pain or SOB. WBC 22. Hb stable. 10/31: Having some phantom right leg pain today. Overall she is more comfortable. She is stressing as her missed dialysis yesterday and was found wandering at 10:30 PM thinking it was 5:30 AM. WBC down to 15.8, Hb dropped into the 7s. To BRYAN today. D/w ID will need PICC for MRSA bacteremia 11/01: Less pain. Better today. Asking for increased frequency of pain medications. D/w son bedside that LTACH is appropriate given her wound and IV antibiotics needs. WBC improved. K 5.4. No BM in 2 days. 11/02: Hb 6 today. CK 54. No BM in 3 days but feeling the urge. Working better with PT. Hb 9.6 after transfusion. She is feeling stronger today and less pain. She is currently still on the bedpan just completed a large bowel movement. Plans for LTAC transfer today BRYAN RESULTS: The left ventricle is normal size. The left ventricular systolic function is normal and the ejection fraction is within normal range. There is normal LV segmental wall motion. The right atrium size is normal. There is a relatively thin and long echodense image extending from the superior vena cava into the right atrium. It does not appear to be attached to a valve. This is suggestive of a thrombus although an atypical or included vegetation cannot be entirely excluded. Doppler and Color Flow revealed no significant aortic regurgitation. There is no significant aortic valvular stenosis. The mitral valve is normal in structure and function. Doppler and Color Flow revealed trace mitral valve regurgitation. Doppler and Color Flow revealed trace tricuspid regurgitation. The pulmonary valve is normal in structure and function. The test shows no clear vegetations. There is an echodense image in the right atrium as outlined above. Plan: LTACH referral Cont antibiotics via PICC Bowel regimen Vitals/I&O Vitals/I&O: Vital Signs Date Time Temp Pulse Resp B/P (MAP) Pulse Ox O2 Delivery O2 Flow Rate FiO2 11/04/19 07:30 97.8 60 18 127/53 (77) 97 Nasal Cannula 2.0 97.8 I & O 11/03/19 11/03/19 11/04/19 15:00 23:00 07:00 Intake Total 405 ml 920 ml Output Total 1050 ml 200 ml Balance -645 ml 720 ml Physical Exam Physical Exam: GENERAL: Propped up in bed, alert, coop HEENT: Oral mucosa moist. nml conj NECK: Supple LUNGS: Clear bilaterally. No wheezing. HEART: S1, S2. No gallops or murmurs. ABDOMEN: Soft, obese. Bowel sounds present, nontender, nondistended. EXTREMITIES: Right LE bandaged NEUROLOGIC: Alert and oriented x 3, grossly nonfocal. PSYCHIATRIC: Cooperative, appropriate mood and affect DERMATOLOGIC: Warm, dry. No generalized rash. PICC - RUE looks clean General: Alert, Oriented X3, Cooperative, No acute distress Heart: Regular rate, Normal S1, Normal S2, No murmurs Lungs: Clear Abdomen: Normal bowel sounds Extremities: No clubbing, No cyanosis, Other Skin: No significant lesion, Other (irritation and drainage at knee) Labs Labs: Laboratory Tests Test 11/03/19 11:05 11/04/19 04:30 White Blood Count 11.4 x10^3/uL (4.0-11.0) 13.0 x10^3/uL (4.0-11.0) Red Blood Count 2.25 x10^6/uL (3.50-5.40) 3.50 x10^6/uL (3.50-5.40) Hemoglobin 6.0 g/dL (12.0-15.5) 9.6 g/dL (12.0-15.5) Hematocrit 18.9 % (36.0-47.0) 29.1 % (36.0-47.0) Mean Corpuscular Volume 84 fL (79-100) 83 fL (79-100) Mean Corpuscular Hemoglobin 27 pg (25-35) 27 pg (25-35) Mean Corpuscular Hemoglobin Concent 32 g/dL (31-37) 33 g/dL (31-37) Red Cell Distribution Width 15.8 % (11.5-14.5) 15.3 % (11.5-14.5) Platelet Count 309 x10^3/uL (140-400) 293 x10^3/uL (140-400) Neutrophils (%) (Auto) 77 % (31-73) 79 % (31-73) Lymphocytes (%) (Auto) 16 % (24-48) 15 % (24-48) Monocytes (%) (Auto) 6 % (0-9) 5 % (0-9) Eosinophils (%) (Auto) 1 % (0-3) 1 % (0-3) Basophils (%) (Auto) 0 % (0-3) 1 % (0-3) Neutrophils # (Auto) 8.7 x10^3/uL (1.8-7.7) 10.3 x10^3/uL (1.8-7.7) Lymphocytes # (Auto) 1.8 x10^3/uL (1.0-4.8) 1.9 x10^3/uL (1.0-4.8) Monocytes # (Auto) 0.7 x10^3/uL (0.0-1.1) 0.6 x10^3/uL (0.0-1.1) Eosinophils # (Auto) 0.1 x10^3/uL (0.0-0.7) 0.2 x10^3/uL (0.0-0.7) Basophils # (Auto) 0.0 x10^3/uL (0.0-0.2) 0.1 x10^3/uL (0.0-0.2) Sodium Level 136 mmol/L (136-145) 134 mmol/L (136-145) Potassium Level 3.7 mmol/L (3.5-5.1) 3.7 mmol/L (3.5-5.1) Chloride Level 103 mmol/L (98-107) 99 mmol/L (98-107) Carbon Dioxide Level 29 mmol/L (21-32) 31 mmol/L (21-32) Anion Gap 4 (6-14) 4 (6-14) Blood Urea Nitrogen 25 mg/dL (7-20) 22 mg/dL (7-20) Creatinine 1.0 mg/dL (0.6-1.0) 0.8 mg/dL (0.6-1.0) Estimated GFR (Cockcroft-Gault) 54.8 70.9 BUN/Creatinine Ratio 25 (6-20) 28 (6-20) Glucose Level 137 mg/dL (70-99) 117 mg/dL (70-99) Calcium Level 6.6 mg/dL (8.5-10.1) 7.3 mg/dL (8.5-10.1) Total Bilirubin 0.3 mg/dL (0.2-1.0) 0.9 mg/dL (0.2-1.0) Aspartate Amino Transf (AST/SGOT) 19 U/L (15-37) 24 U/L (15-37) Alanine Aminotransferase (ALT/SGPT) 34 U/L (14-59) 42 U/L (14-59) Alkaline Phosphatase 77 U/L (46-116) 89 U/L (46-116) Creatine Kinase 56 U/L (26-192) Total Protein 3.9 g/dL (6.4-8.2) 4.6 g/dL (6.4-8.2) Albumin 1.6 g/dL (3.4-5.0) 1.9 g/dL (3.4-5.0) Albumin/Globulin Ratio 0.7 (1.0-1.7) 0.7 (1.0-1.7) Assessment and Plan Assessmemt and Plan Problems Medical Problems: (1) Fever Status: Acute (2) Hypokalemia Status: Acute (3) Right knee pain Status: Acute (4) Sepsis Status: Acute Comment Review of Relevant I have reviewed the following items dieter (where applicable) has been applied. Justicifation of Admission Dx: Justifications for Admission: Justification of Admission Dx: N/A Sepsis: Infection ZACHARIAH LOPEZ MD Nov 04, 2019 09:14
--- NOTE | 2019-11-04 09:26 | PDOC3 ---
Discharge Summary Visit Information Date of Admission: Oct 22, 2019 Date of Discharge: Nov 04, 2019 Admitting Diagnosis: Sepsis Final Diagnosis Problems Medical Problems: (1) Fever Status: Acute (2) Hypokalemia Status: Acute (3) Right knee pain Status: Acute (4) Sepsis Status: Acute Brief Hospital Course Allergies Allergies Coded Allergies Type Severity Reaction Last Updated Verified Sulfa (Sulfonamide Antibiotics) Allergy Intermediate Rash, Nausea and Vomiting 07/25/19 Yes cephalexin Allergy Intermediate RASH, HIVES, NAUSEA/VOMITING 07/25/19 Yes gabapentin Allergy Intermediate RASH, ITCHING 07/25/19 Yes hydrocodone Allergy Intermediate Tolerates hydromorphone 07/25/19 Yes metformin Allergy Intermediate 07/25/19 Yes oxymorphone Allergy Intermediate 07/25/19 Yes I S O L A T I O N *CONTACT* Allergy Unknown 10/27/19 Yes bupropion Adverse Reaction Intermediate "MAKES HER CRAZY" 07/25/19 Yes oxycodone Adverse Reaction Intermediate Nausea and Vomiting 07/25/19 Yes rosuvastatin Adverse Reaction Intermediate MUSCLE ACHING 07/25/19 Yes Vital Signs Vital Signs Date Time Temp Pulse Resp B/P (MAP) Pulse Ox O2 Delivery O2 Flow Rate FiO2 11/04/19 07:30 97.8 60 18 127/53 (77) 97 Nasal Cannula 2.0 97.8 Lab Results Laboratory Tests Test 11/03/19 11:05 11/04/19 04:30 White Blood Count 11.4 x10^3/uL (4.0-11.0) 13.0 x10^3/uL (4.0-11.0) Red Blood Count 2.25 x10^6/uL (3.50-5.40) 3.50 x10^6/uL (3.50-5.40) Hemoglobin 6.0 g/dL (12.0-15.5) 9.6 g/dL (12.0-15.5) Hematocrit 18.9 % (36.0-47.0) 29.1 % (36.0-47.0) Mean Corpuscular Volume 84 fL (79-100) 83 fL (79-100) Mean Corpuscular Hemoglobin 27 pg (25-35) 27 pg (25-35) Mean Corpuscular Hemoglobin Concent 32 g/dL (31-37) 33 g/dL (31-37) Red Cell Distribution Width 15.8 % (11.5-14.5) 15.3 % (11.5-14.5) Platelet Count 309 x10^3/uL (140-400) 293 x10^3/uL (140-400) Neutrophils (%) (Auto) 77 % (31-73) 79 % (31-73) Lymphocytes (%) (Auto) 16 % (24-48) 15 % (24-48) Monocytes (%) (Auto) 6 % (0-9) 5 % (0-9) Eosinophils (%) (Auto) 1 % (0-3) 1 % (0-3) Basophils (%) (Auto) 0 % (0-3) 1 % (0-3) Neutrophils # (Auto) 8.7 x10^3/uL (1.8-7.7) 10.3 x10^3/uL (1.8-7.7) Lymphocytes # (Auto) 1.8 x10^3/uL (1.0-4.8) 1.9 x10^3/uL (1.0-4.8) Monocytes # (Auto) 0.7 x10^3/uL (0.0-1.1) 0.6 x10^3/uL (0.0-1.1) Eosinophils # (Auto) 0.1 x10^3/uL (0.0-0.7) 0.2 x10^3/uL (0.0-0.7) Basophils # (Auto) 0.0 x10^3/uL (0.0-0.2) 0.1 x10^3/uL (0.0-0.2) Sodium Level 136 mmol/L (136-145) 134 mmol/L (136-145) Potassium Level 3.7 mmol/L (3.5-5.1) 3.7 mmol/L (3.5-5.1) Chloride Level 103 mmol/L (98-107) 99 mmol/L (98-107) Carbon Dioxide Level 29 mmol/L (21-32) 31 mmol/L (21-32) Anion Gap 4 (6-14) 4 (6-14) Blood Urea Nitrogen 25 mg/dL (7-20) 22 mg/dL (7-20) Creatinine 1.0 mg/dL (0.6-1.0) 0.8 mg/dL (0.6-1.0) Estimated GFR (Cockcroft-Gault) 54.8 70.9 BUN/Creatinine Ratio 25 (6-20) 28 (6-20) Glucose Level 137 mg/dL (70-99) 117 mg/dL (70-99) Calcium Level 6.6 mg/dL (8.5-10.1) 7.3 mg/dL (8.5-10.1) Total Bilirubin 0.3 mg/dL (0.2-1.0) 0.9 mg/dL (0.2-1.0) Aspartate Amino Transf (AST/SGOT) 19 U/L (15-37) 24 U/L (15-37) Alanine Aminotransferase (ALT/SGPT) 34 U/L (14-59) 42 U/L (14-59) Alkaline Phosphatase 77 U/L (46-116) 89 U/L (46-116) Creatine Kinase 56 U/L (26-192) Total Protein 3.9 g/dL (6.4-8.2) 4.6 g/dL (6.4-8.2) Albumin 1.6 g/dL (3.4-5.0) 1.9 g/dL (3.4-5.0) Albumin/Globulin Ratio 0.7 (1.0-1.7) 0.7 (1.0-1.7) Laboratory Tests Test 11/03/19 11:05 11/04/19 04:30 White Blood Count 11.4 x10^3/uL (4.0-11.0) 13.0 x10^3/uL (4.0-11.0) Red Blood Count 2.25 x10^6/uL (3.50-5.40) 3.50 x10^6/uL (3.50-5.40) Hemoglobin 6.0 g/dL (12.0-15.5) 9.6 g/dL (12.0-15.5) Hematocrit 18.9 % (36.0-47.0) 29.1 % (36.0-47.0) Mean Corpuscular Volume 84 fL (79-100) 83 fL (79-100) Mean Corpuscular Hemoglobin 27 pg (25-35) 27 pg (25-35) Mean Corpuscular Hemoglobin Concent 32 g/dL (31-37) 33 g/dL (31-37) Red Cell Distribution Width 15.8 % (11.5-14.5) 15.3 % (11.5-14.5) Platelet Count 309 x10^3/uL (140-400) 293 x10^3/uL (140-400) Neutrophils (%) (Auto) 77 % (31-73) 79 % (31-73) Lymphocytes (%) (Auto) 16 % (24-48) 15 % (24-48) Monocytes (%) (Auto) 6 % (0-9) 5 % (0-9) Eosinophils (%) (Auto) 1 % (0-3) 1 % (0-3) Basophils (%) (Auto) 0 % (0-3) 1 % (0-3) Neutrophils # (Auto) 8.7 x10^3/uL (1.8-7.7) 10.3 x10^3/uL (1.8-7.7) Lymphocytes # (Auto) 1.8 x10^3/uL (1.0-4.8) 1.9 x10^3/uL (1.0-4.8) Monocytes # (Auto) 0.7 x10^3/uL (0.0-1.1) 0.6 x10^3/uL (0.0-1.1) Eosinophils # (Auto) 0.1 x10^3/uL (0.0-0.7) 0.2 x10^3/uL (0.0-0.7) Basophils # (Auto) 0.0 x10^3/uL (0.0-0.2) 0.1 x10^3/uL (0.0-0.2) Sodium Level 136 mmol/L (136-145) 134 mmol/L (136-145) Potassium Level 3.7 mmol/L (3.5-5.1) 3.7 mmol/L (3.5-5.1) Chloride Level 103 mmol/L (98-107) 99 mmol/L (98-107) Carbon Dioxide Level 29 mmol/L (21-32) 31 mmol/L (21-32) Anion Gap 4 (6-14) 4 (6-14) Blood Urea Nitrogen 25 mg/dL (7-20) 22 mg/dL (7-20) Creatinine 1.0 mg/dL (0.6-1.0) 0.8 mg/dL (0.6-1.0) Estimated GFR (Cockcroft-Gault) 54.8 70.9 BUN/Creatinine Ratio 25 (6-20) 28 (6-20) Glucose Level 137 mg/dL (70-99) 117 mg/dL (70-99) Calcium Level 6.6 mg/dL (8.5-10.1) 7.3 mg/dL (8.5-10.1) Total Bilirubin 0.3 mg/dL (0.2-1.0) 0.9 mg/dL (0.2-1.0) Aspartate Amino Transf (AST/SGOT) 19 U/L (15-37) 24 U/L (15-37) Alanine Aminotransferase (ALT/SGPT) 34 U/L (14-59) 42 U/L (14-59) Alkaline Phosphatase 77 U/L (46-116) 89 U/L (46-116) Creatine Kinase 56 U/L (26-192) Total Protein 3.9 g/dL (6.4-8.2) 4.6 g/dL (6.4-8.2) Albumin 1.6 g/dL (3.4-5.0) 1.9 g/dL (3.4-5.0) Albumin/Globulin Ratio 0.7 (1.0-1.7) 0.7 (1.0-1.7) Brief Hospital Course Mr Baig is a 69 yo female w/ PMHx hypertension, hypercholesterolemia, obesity, gastroesophageal reflux, lap band in 05/2009, CASTRO previously on CPAP, renal cancer s/p left nephrectomy, arthritis, depression, anxiety, and history of MRSA who previously had history of a right total knee arthroplasty in 08/2016 followed by a traumatic wound dehiscence following total knee arthroplasty and underwent explantation and revision for infection and subsequently had a periprosthetic fracture and multiple surgeries right knee: - 08/25/2016 - Right TKA - 11/03/2016 - exploration I and D and poly exchange. - 04/16/2017 - explantation of the right knee. - 07/06/2017 - Reimplantation and ORIF on the medial condylar fracture. - 05/17/2018 - underwent extensive patellar reconstruction with allograft Achilles tendon and calcaneus bone block - 06/10/2018 - exploration and debridement of the right knee. - 04/18/2019 - she had an extensor mechanism reconstruction with allograft tissue - 07/25/2019 - intraoperative cultures positive for Corynebacterium species - 08/15/2019 - Removal of right knee joint implant and plate and screw hardware with debridement and placement of a non-articulating antibiotic spacer PICC line was taken out when she was seen in ID office on 09/28/2019. - 08/23/2019 - Irrigation debridement right knee with hematoma evacuation and revision of antibiotic spacer She presented to the ER on 10/22/2019 after she went home 10/18/2019 from [facility]. The patient did well, but was very exhausted. On 10/20/2019 in the eveningshe was sitting in a chair and had sudden onset of pain in theright knee at which time she was unable to get up, also had urinary incontinence. Upon presentation, her fever was 100.3. White count elevated at 17.4 with left shift. Potassium was 2.8, sodium was 133, glucose was 158. Lactate of 2.0. Troponin was normal. Albumin of 3.0. UA was negative. Chest x-ray showed no acute infiltrate. She underwent Negative COVID testing. She was started on empiric daptomycin and Zosyn for concern of sepsis. She had blood cultures done, 4/4 blood cultures from 10/22/2019 positive for gram- positive cocci in clusters found to be MRSA and acinetobacter baumanii, which was also present in knee. She was seen at Orthopedic Surgery for follow up before discharge from [facility]. They felt that she still had ongoing infection in the right knee and told her that she was not a candidate for fusion at this time. Per patient report she had synovial aspiration done in outpatient clinic at [facility]. Microbiology Lab could not give any information on phone due to change in policy. - 10/24/2019 - Irrigation debridement of right knee with removal existing antibiotic spacer extensive debridement and fashioning of rigid antibiotic spacer and placement - 10/30/2019 - To right AKA with Orthopedic surgery - 10/31/2019 - She has pain that is so severe she continues to black out regularly. No chest pain or SOB. WBC 22. Hb stable. - 11/01/2019 - Her missed dialysis, found wandering at 10:30 PM thinking it was 5:30 AM. WBC down to 15.8, Hb into the 7s. To [facility] today. PICC for MRSA bacteremia - 11/02/2019 - Asking for increased frequency of pain medications. D/w son bedside that LTACH is appropriate given her wound and IV antibiotics needs. WBC improved. K 5.4. No BM - 11/03/2019 - Hb 6 today. CK 54. No BM in 3 days but feeling the urge. Working better with PT. S/p 2u PRBC Hb 9.6 after transfusion. She is feeling stronger today and less pain. She is currently still on the bedpan just completed a large bowel movement. Plans for LTAC transfer today [facility] RESULTS: The left ventricle is normal size. The left ventricular systolic function is normal and the ejection fraction is within normal range. There is normal LV segmental wall motion. The right atrium size is normal. There is a relatively thin and long echodense image extending from the superior vena cava into the right atrium. It does not appear to be attached to a valve. This is suggestive of a thrombus although an atypical or included vegetation cannot be entirely excluded. Doppler and Color Flow revealed no significant aortic regurgitation. There is no significant aortic valvular stenosis. The mitral valve is normal in structure and function. Doppler and Color Flow revealed trace mitral valve regurgitation. Doppler and Color Flow revealed trace tricuspid regurgitation. The pulmonary valve is normal in structure and function. The test shows no clear vegetations. There is an echodense image in the right atrium as outlined above. Consults: Ortho, nephro, ID, Cardiology. Problem list: S/p R AKA 10/29 Anemia S/p PRBCs 11/02 Leukocytosis - post op and post Dexamethasone - niow S/p PRBCs MRSA bacteremia, POA (4 out of 4 bottles) 10/22/2019 source right knee infection. -repeat BC 10/23, 10/25 and 10/26 neg to date Right knee infection with drainage from last surgery with wound vac -Oct 23 2019 Cultures positive for MRSA AND XMDRO ACINETOBACTER BAU/NOS GROUP - Oct 23 cultures not reported yet,pending ,d/w micro today -On Oct 24, 2019 s/p I&D with removal of existing antibiotic spacer, extensive debridement and fashioning of rigid antibiotic spacer and placement -Operative findings same with superficial cloudy drainage, no gross evidence of deep infection or osteomyelitis. 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 -Status post synovial aspirate at [facility] October 13, 2019. Positive f or acinetobacter bau (Unasyn-S) and VRE (also resistent to ampicillin, tetra, Dapto and intermediate to linazolid) She was initially scheduled to have a revision/placement of abx spacer on Dec [address] Persaud -08/15/2019 s/p removal of right knee joint implant and plate and screw hardware with debridement and placement of nonarticulating antibiotic spacer, cultures, s/p I and D with hematoma evacuation and revision of antibiotic spacer. Cultures negative -07/25/2019 status post I and D, right knee with poly exchange and extensive mechanism repair done. -07/25/2019, intraoperative cultures positive for Corynebacterium species, sensitive to meropenem and daptomycin. Treated through September 26, 2019 H/o Right TKA 08/25/2016 History of renal cancer, status post left nephrectomy with mild renal insufficiency. Diabetes mellitus. Hypertension. Obesity. Gastroesophageal reflux disease. ALLERGIES TO SULFA, CEPHALEXIN, has tolerated amoxicillin. Protein-calorie malnutrition. Generalized debility S/p lap band procedure S/p cervical laminectomy and fusion S/p lumbar laminectomy and fusion Plan: LTACH referral Cont antibiotics via PICC Bowel regimen Greater than 30 minutes spent on d/c to LTAC Discharge Information Condition at Discharge: Improved Follow Up: Weeks Disposition/Orders: D/C to Another Facility ([facility]) Scheduled Carvedilol (Coreg ) 6.25 Mg Tablet, 1 TAB PO BID, #180 Ref 3 (Reported) Entered as Reported by: CAM KAT on 04/13/17 1453 Last Action: Continued on 10/23/19 1354 by DEIRDRE AVILA Daptomycin (Daptomycin) 350 Mg Vial, 460 MG IV DAILY for knee infection for 30 Days, #40 Prescribed by: DEIRDRE AVILA on 08/25/19 1118 Last Action: Converted on 10/23/19 1354 by DEIRDRE AVILA Duloxetine Hcl (Cymbalta) 60 Mg Capsule.dr, 60 MG PO BID for depression, (Reported) Entered as Reported by: EMILY BRINK on 10/05/13 1541 Last Action: Converted on 10/23/191353 by DEIRDRE AVILA Ergocalciferol (Vitamin D2) (Vitamin D2) 50,000 Unit Capsule, 50,000 UNIT PO QSU for supplement , (Reported) Entered as Reported by: CAM KAT on 08/11/16 1546 Last Action: HELD on 10/23/19 135 by DEIRDRE AVILA Escitalopram Oxalate (Lexapro) 20 Mg Tablet, 40 MG PO DAILY for ANTI-DEPRESSANT, Ref 0 (Reported) Entered as Reported by: CAM KAT on 08/11/16 1546 Last Action: Converted on 10/23/191353 by DEIRDRE AVILA Ezetimibe (Zetia) 10 Mg Tablet, 1 TAB PO DAILY AM, #30 Ref 5 (Reported) Entered as Reported by: MOMO HUBER on 04/13/17 1346 Last Action: Continued on 10/23/191353 by DEIRDRE AVILA Pantoprazole Sodium (Protonix) 20 Mg Tablet.dr, 20 MG PO HS for gerd, (Reported) Entered as Reported by: NEVIN BRANCH RN on 04/18/19 1712 Last Action: Converted on 10/23/191353 by DEIRDRE AVILA Potassium Chloride (Potassium Chloride ) 10 Meq Capsule.er, 10 MEQ PO UD, (Reported) Entered as Reported by: CAM KAT on 04/13/17 1447 Last Action: Continued on 10/23/191353 by DEIRDRE AVILA Triamterene/Hydrochlorothiazid (Maxzide 75 Mg-50 Mg Tablet) 1 Each Tablet, 1 TAB PO DAILY for htn, #30 Ref 5 (Reported) Entered as Reported by: NEVIN BRANCH RN on 04/19/19 7277 Last Action: Converted on 10/23/191353 by DEIRDRE AVILA Scheduled PRN Hydromorphone Hcl (Dilaudid) 8 Mg Tablet, 1 TAB PO PRN Q4HRS PRN for pain MDD 6 Tablet(s) for 14 Days, #80 Ref 0 Prescribed by: LESLIE PEREZ on 08/18/19 1339 Last Action: Converted on 10/23/19 1354 by DEIRDRE AVILA Discontinued Medications Meropenem (Merrem) 500 Mg Vial, 500 MG IV Q6HRS for knee infection for 20 Days, #80 Prescribed by: DEIRDRE AVILA on 08/25/19 1118 Justicifation of Admission Dx: Justifications for Admission: Justification of Admission Dx: N/A Sepsis: Infection ZACHARIAH LOPEZ MD Nov 04, 2019 09:26
--- NOTE | 2019-11-04 09:41 | SNU/HH DC ---
DISCHARGE ORDERS DISCHARGE INFORMATION: DISCHARGE DATE: Nov 04, 2019 FINAL DIAGNOSIS Problems Medical Problems: (1) Fever Status: Acute (2) Hypokalemia Status: Acute (3) Right knee pain Status: Acute (4) Sepsis Status: Acute CONDITION ON DISCHARGE: Stable CODE STATUS: Code Status: Full LTAC: ADMIT TO LTAC: Yes POST DISCHARGE ORDERS: ACTIVITY ORDERS: Other, see below WEIGHT BEARING STATUS: Touch down weight bearing BATHING ORDERS: Shower-keep dressing dry, No Tub Bath until see DIET AFTER DISCHARGE: Cardiac WOUND/INCISION CARE: Ice to area for comfort, Change dressing, Reinforce dressing PRN CHECKS AFTER DISCHARGE: CHECKS AFTER DISCHARGE: Check blood press - daily, Check your Temp as needed TREATMENT/EQUIPMENT ORDERS: ADAPTIVE EQUIPMENT NEEDED: Front wheeled walker, Wheelchair INFUSION EQUIPMENT NEEDED: PICC Line Physical Therapy For: Evalulation/Treatment Occupational Therapy For: Evaluation/Treatment DISCHARGE MEDICATIONS: Home Meds Active Scripts Daptomycin (Daptomycin) 350 Mg Vial, 460 MG IV DAILY for knee infection for 30 Days, #40 EACH Prov:DEIRDRE AVILA MD 08/25/19 Hydromorphone Hcl (DILAUDID) 8 Mg Tablet, 1 TAB PO PRN Q4HRS PRN for pain MDD 6 Tablet(s) for 14 Days, #80 TAB 0 Refills Prov:LESLIE PEREZ MD 08/18/19 Reported Medications Triamterene/Hydrochlorothiazid (MAXZIDE 75 MG-50 MG TABLET) 1 Each Tablet, 1 TAB PO DAILY for htn, #30 TAB 5 Refills 04/19/19 Pantoprazole Sodium (PROTONIX) 20 Mg Tablet.dr, 20 MG PO HS for gerd, TAB 04/18/19 Carvedilol (COREG ) 6.25 Mg Tablet, 1 TAB PO BID, #180 TAB 3 Refills 04/13/17 Potassium Chloride (POTASSIUM CHLORIDE ) 10 Meq Capsule.er, 10 MEQ PO UD, TAB.SR 04/13/17 Ezetimibe (ZETIA) 10 Mg Tablet, 1 TAB PO DAILY AM, #30 TAB 5 Refills 04/13/17 Ergocalciferol (Vitamin D2) (VITAMIN D2) 50,000 Unit Capsule, 92110 UNIT PO QSU for supplement , CAP 08/11/16 Escitalopram Oxalate (LEXAPRO) 20 Mg Tablet, 40 MG PO DAILY for ANTI-DEPRESSANT, TAB 0 Refills 08/11/16 Duloxetine Hcl (CYMBALTA) 60 Mg Capsule.dr, 60 MG PO BID for depression, CAP 10/05/13 Discontinued Scripts Meropenem (MERREM) 500 Mg Vial, 500 MG IV Q6HRS for knee infection for 20 Days, #80 EACH Prov:DEIRDRE AVILA MD 08/25/19 ZACHARIAH LOPEZ MD Nov 04, 2019 09:41
[2019-11-04] MEDS: EZETIMIBE 10 MG TABLET. PO SCH (10:07)
[2019-11-04 10:08] VITALS: BP 127/53
[2019-11-04] MEDS: DOCUSATE SODIUM 100 MG CAPSULE. PO PRN (10:08)
[2019-11-04] MEDS: DULoxetine HCL 30 MG CAPSULE.DR PO SCH (10:08)
[2019-11-04] MEDS: CARVEDILOL 6.25 MG TABLET. PO SCH (10:08)
[2019-11-04] MEDS: HYDROmorphone 4 MG TABLET PO PRN (10:08)
[2019-11-04] MEDS: TRIAMTERENE/HCTZ 37.5/25MG TABLET. PO SCH (10:08)
[2019-11-04] MEDS: MULTIVITAMIN with MINERAL TABLET. PO SCH (10:08)
[2019-11-04] MEDS: CITALOPRAM 20 MG TABLET. PO SCH (10:09)
[2019-11-04] MEDS: POTASSIUM CHLORIDE 10 MEQ TABLET.ER. PO SCH (10:09)
[2019-11-04] MEDS: LACTOBACILLUS RHAMNOSUS GG 1 CAPSULE. PO SCH (10:09)
[2019-11-04] MEDS: ASCORBIC ACID 500 MG TABLET PO SCH (10:09)
--- NOTE | 2019-11-04 11:13 | NUR ---
pt discharged to [facility] spec. report given to supervisor [employer] at [facility]. meds, labs, and dressings reviewed. PICC to [place] flushed and capped. pt stable upon dc. ana left at bedside as she had several arrangements which [facility] could not transport.
--- NOTE | 2019-11-06 13:07 | PATHOLOGY ---
[facility] Accession Number: [id number] . 01 Material submitted: . leg - RIGHT ABOVE KNEE AMPUTATION. Modifiers: right . 01 Clinical history: . SEPSIS, PUI, FEVER, ABOVE KNEE AMPUTATION . 02 Diagnosis: Right above knee amputation: - Status post right knee explant and placement of antibiotic spacer. - Focal presence of necrotic tissue and granulation tissue showing hemorrhage and acute inflammation within knee joint soft tissues. - Extensive scarring of soft tissues of knee joint region showing foci of chronic inflammation, foreign body giant cell reaction, and dystrophic calcification. . (JPM:doug; 11/03/2019) . This case was prepared and proofread by Dr. Rigo Hurtado and electronically released by Dr. Howie Short. MBR 11/06/2019 1220 Local . 02 Electronically signed: . Howie Short MD, Pathologist NPI- [id number] . 01 Gross description: . The specimen is received fresh in a red biohazard bag, labeled "Venecia Baig, right above knee amputation" and consists of a right above the knee amputation specimen measuring 23.6 cm heel to big toe and 45.0 cm heel to proximal skin soft tissue margin. All 5 toes are present displaying smooth to irregular thickened yellow-seth nails. Protruding from the proximal margin is soft tissue and bone cement with metal hardware protruding from the bone cement. Present on the anterior skin aspect is a 12.0 cm linear incision with numerous black sutures. The remaining skin is pink-seth with a flaky heel. No lesions are identified. The popliteal artery as well as anterior and posterior tibial arteries display patent lumens. . Also present in the bag are multiple segments of bone cement, medical hardware, and bone/soft tissue measuring between 1.8 x 0.8 cm and 14.4 x 10.0 cm. Gross photos are taken. Lottery Manager sections are submitted as follows: . A1: Skin soft tissue margin A2: Popliteal artery A3: Anterior and posterior tibial arteries . ([facility]; 11/01/2019) . After initial microscopic examination additional digital sales representative sections are submitted as follows: . A4-A6: Soft tissue surrounding knee joint area A7-A8: Soft tissue from additionally received tissue ([facility]; 11/02/2019) SYU/SYU 11/06/2019 1220 Local . 02 Pathologist provided ICD-10: M79.89, I96 . 02 CPT . 001095, 364044 Specimen Comment: A courtesy copy of this report has been sent to [phone], [phone] Specimen Comment: [id number], Specimen Comment: Report sent to ,DR CHASE / DR BASSETT Performed at: 01 [facility] [address], [place] [id number] MD Sebastien Wilks MD Phone: [phone] Performed at: 02 [facility] [address] [place], [place] [id number] MD Rigo Hurtado MD Phone: [phone]
--- NOTE | 2019-11-16 18:43 | PDOC ---
Infectious Disease Note Subjective: Subjective Medications: Inpatient Meds: Current Medications Medications (Trade) Dose Ordered Sig/Hina Start Time Stop Time Status Last Admin Dose Admin Acetaminophen (Tylenol) 650 mg PRN Q4HRS PRN 10/22/19 21:15 11/04/19 11:18 DC Albumin Human 500 ml @ As Directed STK-MED ONCE 10/30/19 16:54 10/30/19 16:54 DC Albuterol Sulfate (Ventolin Neb Soln) 2.5 mg PRN Q4HRS PRN 10/22/19 21:15 11/04/19 11:18 DC Ascorbic Acid (Vitamin C) 500 mg DAILY 10/24/19 09:00 11/04/19 11:18 DC 11/04/19 10:09 500 MG Benzocaine (Hurricaine One) 2 spray 1X ONCE 11/01/19 08:00 11/01/19 08:01 DC 11/01/19 09:38 2 SPRAY Bupivacaine HCl/ Epinephrine Bitart (Sensorcaine-Epi 0.25%-1:088166 Mpf) 30 ml STK-MED ONCE 10/30/19 15:39 10/30/19 15:39 DC Carvedilol (Coreg) 6.25 mg BIDWMEALS 10/23/19 17:00 11/04/19 11:18 DC 11/04/19 10:08 6.25 MG Citalopram Hydrobromide (CeleXA) 40 mg DAILY 10/24/19 09:00 11/04/19 11:18 DC 11/04/19 10:09 40 MG Clonidine HCl (Catapres) 0.1 mg PRN Q6HRS PRN 10/22/19 21:15 11/04/19 11:18 DC Daptomycin 480 mg/ Sodium Chloride 50 ml @ 100 mls/hr Q24H 10/22/19 20:30 11/04/19 11:18 DC 11/03/19 21:09 100 MLS/HR Dexamethasone Sodium Phosphate (Decadron) 4 mg STK-MED ONCE 10/30/19 16:01 10/30/19 16:01 DC Dextrose (Dextrose 50%-Water Syringe) 12.5 gm PRN Q15MIN PRN 10/30/19 21:15 11/04/19 11:18 DC Docusate Sodium (Colace) 100 mg PRN BID PRN 10/22/19 21:15 11/04/19 11:18 DC 11/04/19 10:08 100 MG Duloxetine HCl (Cymbalta) 60 mg BID 10/23/19 21:00 11/04/19 11:18 DC 11/04/19 10:08 60 MG Enoxaparin Sodium (Lovenox 40mg Syringe) 40 mg Q24H 10/22/19 22:00 11/04/19 11:18 DC 11/02/19 20:44 40 MG Esmolol HCl (Brevibloc) 100 mg STK-MED ONCE 10/24/19 17:13 10/24/19 17:13 DC EZETIMIBE (Zetia) 10 mg DAILY 10/23/19 15:00 11/04/19 11:18 DC 11/04/19 10:07 10 MG Famotidine (Pepcid Vial) 20 mg STK-MED ONCE 10/30/19 16:01 10/30/19 16:01 DC Fentanyl Citrate (Fentanyl 2ml Vial) 100 mcg STK-MED ONCE 10/30/19 20:08 10/30/19 20:08 DC Fentanyl Citrate (Fentanyl 5ml Vial) 250 mcg STK-MED ONCE 10/30/19 17:16 10/30/19 17:16 DC Guaifenesin (Robitussin) 200 mg PRN Q4HRS PRN 10/22/19 21:15 11/04/19 11:18 DC Hydralazine HCl (Apresoline Inj) 20 mg STK-MED ONCE 10/24/19 16:42 10/24/19 16:43 DC Hydromorphone HCl (Dilaudid) 1 mg PRN Q2HRS PRN 11/02/19 15:00 11/04/19 11:18 DC 11/02/19 18:21 1 MG Lactobacillus Rhamnosus (Culturelle) 1 cap BID 10/23/19 21:00 11/04/19 11:18 DC 11/04/19 10:09 1 CAP Lidocaine HCl (Buffered Lidocaine 1%) 6 ml 1X ONCE 11/02/19 08:45 11/02/19 08:46 DC Lidocaine HCl (Lidocaine Pf 2% Vial) 5 ml STK-MED ONCE 11/01/19 09:35 11/01/19 09:36 DC Lidocaine HCl (Viscous Lidocaine) 15 ml 1X ONCE 11/01/19 08:00 11/01/19 08:01 DC 11/01/19 08:00 15 ML Lidocaine HCl (Xylocaine 2% Topical 30gm Tube) 1 marc 1X ONCE 11/01/19 08:00 11/01/19 08:01 DC 11/01/19 09:47 1 MARC Lorazepam (Ativan Inj) 1 mg 1X ONCE 10/24/19 11:30 10/24/19 11:31 DC 10/24/19 11:25 1 MG Meropenem 500 mg/ Sodium Chloride 50 ml @ 100 mls/hr Q6HRS 10/26/19 12:00 10/26/19 12:09 DC 10/26/19 11:52 100 MLS/HR Metoprolol Tartrate (Lopressor Vial) 5 mg PRN Q10MIN PRN 10/30/19 19:45 10/31/19 19:44 DC 10/30/19 19:56 5 MG Midazolam HCl (Versed) 2 mg STK-MED ONCE 10/24/19 15:22 10/24/19 15:23 DC Morphine Sulfate (Morphine Sulfate) 1 mg PRN Q10MIN PRN 10/24/19 18:30 10/25/19 18:29 DC Multivitamins (Thera M Plus) 1 tab DAILY 10/24/19 09:00 11/04/19 11:18 DC 11/04/19 10:08 1 TAB Non-Formulary Medication (Daptomycin ) 460 mg DAILY 10/24/19 09:00 UNV Non-Formulary Medication (Hydromorphone Hcl (Dilaudid)) 1 tab PRN Q4HRS PRN 10/23/19 13:45 UNV Olanzapine (ZyPREXA ZYDIS) 5 mg PRN BID PRN 11/02/19 14:00 11/04/19 11:18 DC Ondansetron HCl (Zofran) 4 mg STK-MED ONCE 10/30/19 16:01 10/30/19 16:01 DC Pantoprazole Sodium (Protonix) 40 mg QHS 10/23/19 21:00 11/04/19 11:18 DC 11/03/19 21:11 40 MG Piperacillin Sod/ Tazobactam Sod 3.375 gm/Sodium Chloride 50 ml @ 100 mls/hr Q6HRS 10/23/19 00:00 10/26/19 10:44 DC 10/26/19 05:30 100 MLS/HR Polyethylene Glycol (miraLAX PACKET) 17 gm PRN BID PRN 11/02/19 11:45 11/04/19 11:18 DC Potassium Chloride/Water 100 ml @ 100 mls/hr Q1H 10/22/19 19:50 10/22/19 23:49 DC 10/23/19 00:53 100 MLS/HR Potassium Chloride (Klor-Con) 10 meq [id number] 10/24/19 09:00 11/04/19 11:18 DC 11/04/19 10:09 10 MEQ Prochlorperazine Edisylate (Compazine) 5 mg PACU PRN PRN 11/01/19 07:00 11/01/19 16:44 DC Propofol (Diprivan) 200 mg STK-MED ONCE 11/01/19 09:35 11/01/19 09:36 DC Psyllium Hydrophilic Mucilloid (Metamucil Fiber Packet) 1 pkt [id number] 11/02/19 16:00 11/04/19 11:18 DC 11/03/19 16:42 1 PKT Ringer's Solution 1,000 ml @ 30 mls/hr Q24H 11/01/19 07:00 11/01/19 00:19 DC Rocuronium [place] (Zemuron) 50 mg STK-MED ONCE 10/30/19 12:11 10/30/19 12:11 DC Sevoflurane (Ultane) 90 ml STK-MED ONCE 10/30/19 16:01 10/30/19 16:01 DC Sodium Chloride 1,000 ml @ 70 mls/hr [id number] 10/22/19 21:30 11/04/19 11:18 DC 11/04/19 04:07 70 MLS/HR Sodium Chloride (Normal Saline Flush) 3 ml QSHIFT PRN 10/22/19 21:15 11/04/19 11:18 DC Succinylcholine Chloride (Anectine) 200 mg STK-MED ONCE 10/30/19 12:11 10/30/19 12:11 DC Tigecycline 100 mg/Dextrose 100 ml @ 200 mls/hr 1X ONCE 10/26/19 12:15 10/26/19 12:44 DC 10/26/19 13:19 200 MLS/HR Tigecycline 50 mg/ Dextrose 50 ml @ 100 mls/hr Q12HR 10/27/19 21:00 11/03/19 10:30 DC 11/03/19 09:01 100 MLS/HR Triamterene/HCTZ (Maxzide 37.5/ 25mg) 2 tab DAILY 10/24/19 09:00 11/04/19 11:18 DC 11/04/19 10:08 2 TAB Vancomycin HCl (Vancomycin) 1 gm STK-MED ONCE 10/24/19 15:30 10/24/19 15:31 DC 10/24/19 16:26 1 GM Zolpidem Tartrate (Ambien) 5 mg PRN QHS PRN 10/25/19 20:00 11/04/19 11:18 DC 10/29/19 21:39 5 MG Labs: Micro RUN DATE: 10/25/19 [facility] *LIVE* PAGE 1 RUN TIME: 1024 Specimen Inquiry PATIENT: GREYSON VELEZ ACCT: [id number] LOC: [address] [place] [address] U: [id number] AGE/SX: 69/F ROOM: [facility] RE10/22/[address]: PERRY CHASE MD : 1950 BED: 1 DIS: STATUS: ADM IN TLOC: SPEC #: [id number] BUFFY: 10/22/19 STATUS: COMP REQ #: [id number] RECD: 10/22/[address]: SANJIV OSBORN MD SOURCE: BLOOD ENTR: 10/23/19-[address]: EMILY BASSETT MD [facility]: ORDERED: BLD CULT - LC Procedure Result -- BLOOD CULTURE LC Final Final GRAM POSITIVE COCCI FINAL ID= [STAPHYLOCOCCUS AUREUS (MRSA)] STAPHYLOCOCCUS AUREUS (MRSA) ANTIMICROBIAL SUSCEPTIBILITY Final Comment POS TANYA TYPE 38 STAPHYLOCOCCUS AUREUS (MRSA) ANTIBIOTIC RESULT INTERPRETATION AZITHROMYCIN >4 R CLINDAMYCIN >4 R CEFOXITIN SCREEN >4 POS CIPROFLOXACIN >2 R CEFTAROLINE 1 S DAPTOMYCIN <=0.5 S ERYTHROMYCIN >4 R GENTAMICIN <=4 S LINEZOLID 2 S LEVOFLOXACIN >4 R OXACILLIN >2 R PENICILLIN >2 R* RIFAMPIN <=1 S TRIMETHOPRIM/SULFAMETHOXAZOLE <=0.5/9.5 S TETRACYCLINE <=4 S VANCOMYCIN 1 S Unless otherwise specified, Testing Performed by: [address] [id number] For Inquires, the Physician may contact the Microbiology department at [phone] RUN DATE: 10/26/19 [facility] *LIVE* PAGE 1 RUN TIME: 1123 Specimen Inquiry PATIENT: SHARYN VELEZRICKYMUSHTAQ Tanya ACCT: [id number] LOC: [address] [place] [address] U: [id number] AGE/SX: 69/F ROOM: [facility] RE10/22/[address]: PERRY CHASE MD : 1950 BED: 1 DIS: STATUS: ADM IN TLOC: SPEC #: [id number] BUFFY: 10/23/19 STATUS: [facility] #: [id number] RECD: 10/23/[address] [facility] [address]: SANJIV OSBORN MD SOURCE: KNEE ENTR: 10/22/19-[address]: EMILY BASSETT MD [facility]: RIGHT ORDERED: AEROBIC CULT GS COMMENTS: RIGHT KNEE Has specimen been collected/obtained? Y Procedure Result GRAM STAIN Final Final GRAM POSITIVE COCCI:MODERATE SQUAMOUS EPI CELL:RARE PMN (WBCs):FEW Unless otherwise specified, Testing Performed by: [address] [address] For Inquires, the Physician may contact the Microbiology department at [phone] AEROBIC CULTURE Final Final MANY GRAM POSITIVE COCCI on 10/25/19 at 1148 FINAL ID= [STAPHYLOCOCCUS AUREUS (MRSA)] FEW GRAM NEGATIVE RODS on 10/25/19 at 1149 FINAL ID= [ACINETOBACTER BAU/NOS GROUP] Testing Performed by: [address] [address] For Inquires, the Physician may contact the Microbiology department at [phone] STAPHYLOCOCCUS AUREUS (MRSA) ACINETOBACTER BAU/NOS GROUP ANTIMICROBIAL SUSCEPTIBILITY Final Comment Comment POS TANYA TYPE 38 STAPHYLOCOCCUS AUREUS (MRSA) ANTIBIOTIC RESULT INTERPRETATION AZITHROMYCIN >4 R CLINDAMYCIN >4 R CEFOXITIN SCREEN >4 POS CIPROFLOXACIN >2 R CEFTAROLINE 1 S CONTINUED ON NEXT PAGE RUN DATE: 10/26/19 [facility] *LIVE* PAGE 2 RUN TIME: 112 Specimen Inquiry SPEC: [id number] PATIENT: AGUSTINGREYSON [id number] (Continued) Procedure Result ANTIMICROBIAL SUSCEPTIBILITY Final (continued) DAPTOMYCIN <=0.5 S ERYTHROMYCIN >4 R GENTAMICIN <=4 S LINEZOLID 2 S LEVOFLOXACIN >4 R OXACILLIN >2 R PENICILLIN >2 R* RIFAMPIN <=1 S TRIMETHOPRIM/SULFAMETHOXAZOLE <=0.5/9.5 S TETRACYCLINE <=4 S VANCOMYCIN 1 S NEG TANYA 56 ACINETOBACTER BAU/NOS GROUP ANTIBIOTIC RESULT INTERPRETATION AMPICILLIN/SULBACTAM >16/8 R AMIKACIN >32 R CEFTRIAXONE >32 R CEFTAZIDIME >16 R CEFOTAXIME >32 R CIPROFLOXACIN >2 R CEFEPIME >16 R GENTAMICIN >8 R LEVOFLOXACIN >4 R MINOCYCLINE >8 R MEROPENEM >8 R TRIMETHOPRIM/SULFAMETHOXAZOLE >2/38 R TOBRAMYCIN >8 R Unless otherwise specified, Testing Performed by: [address] [address] For Inquires, the Physician may contact the Microbiology department at [phone] Microbiology 10/27/19 Blood Culture - Preliminary, Resulted NO GROWTH AFTER 1 DAY 10/24/19 Gram Stain - Final, Resulted 10/24/19 Aerobic and Anaerobic Culture - Preliminary, Resulted 10/23/19 Gram Stain - Final, Complete 10/23/19 Aerobic Culture - Final, Complete 10/23/19 Antimicrobic Susceptibility - Final, Complete Objective: Assessment: Addedum to initial consult 10/2019 Plan: Plan of Care 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 She would like to stay at [facility] under the care of DR De La Cruz for all her RT PJI related surgeries and management. GREEN,ARUNDHATI S MD Nov 16, 2019 18:43
[2019-12-05] MEDS ORDERED: ENOX40DI SQ (15:12)
[2019-12-05] MEDS ORDERED: ASCO500C PO (15:12)
[2019-12-05] MEDS ORDERED: HYDR25CA75 PO (15:12)
[2019-12-05] MEDS ORDERED: LACT1CAP53 PO (15:12)
[2019-12-05] MEDS ORDERED: TEMA15CA PO (15:12)
[2019-12-05] MEDS ORDERED: MULT-245 PO (15:12)
[2019-12-05] MEDS ORDERED: ERAV50VI IV (15:12)
== END 2019-11-04 11:17 | DRG 853 ==
LOC: ER 18:03 → 6 SOUTH 19:56 → 5 NORTH 10-24 18:49
PROVIDERS: ADMIT Family Medicine; ATTEND Family Medicine
PROC: 0SHC08Z Insertion of Spacer into Right Knee Joint, Open Approach (ICD-10-PCS; 2019-10-24)
PROC: 0SPC0JZ Removal of Synthetic Substitute from Right Knee Joint, Open Approach (ICD-10-PCS; 2019-10-24)
PROC: 0SBC0ZZ Excision of Right Knee Joint, Open Approach (ICD-10-PCS; principal; 2019-10-24 13:30)
PROC: 0Y6C0Z3 Detachment at Right Upper Leg, Low, Open Approach (ICD-10-PCS; 2019-10-30)
PROC: 30233N1 Transfusion of Nonautologous Red Blood Cells into Peripheral Vein, Percutaneous Approach (ICD-10-PCS; 2019-10-30)
PROC: 02HV33Z Insertion of Infusion Device into Superior Vena Cava, Percutaneous Approach (ICD-10-PCS; 2019-11-02)
PROC: B5181ZA Fluoroscopy of Superior Vena Cava using Low Osmolar Contrast, Guidance (ICD-10-PCS; 2019-11-02)
PROC: B548ZZA Ultrasonography of Superior Vena Cava, Guidance (ICD-10-PCS; 2019-11-02)
DX: A41.9 Sepsis, unspecified organism (principal); E43 Unspecified severe protein-calorie malnutrition; M00.9 Pyogenic arthritis, unspecified; E46 Unspecified protein-calorie malnutrition; I10 Essential (primary) hypertension; B95.62 Methicillin resistant Staphylococcus aureus infection as the cause of diseases classified elsewhere; B96.89 Other specified bacterial agents as the cause of diseases classified elsewhere; D64.9 Anemia, unspecified; E11.9 Type 2 diabetes mellitus without complications; E66.9 Obesity, unspecified; E78.00 Pure hypercholesterolemia, unspecified; E87.6 Hypokalemia; F32.9 Major depressive disorder, single episode, unspecified; G54.6 Phantom limb syndrome with pain; K21.9 Gastro-esophageal reflux disease without esophagitis; R32 Unspecified urinary incontinence; Z20.828 Contact with and (suspected) exposure to other viral communicable diseases; Z68.38 Body mass index [BMI] 38.0-38.9, adult; Z82.49 Family history of ischemic heart disease and other diseases of the circulatory system; Z85.528 Personal history of other malignant neoplasm of kidney; Z86.14 Personal history of Methicillin resistant Staphylococcus aureus infection; Z88.2 Allergy status to sulfonamides; Z87.891 Personal history of nicotine dependence; Z89.611 Acquired absence of right leg above knee; Z90.49 Acquired absence of other specified parts of digestive tract; Z90.5 Acquired absence of kidney; Z90.710 Acquired absence of both cervix and uterus; Z96.651 Presence of right artificial knee joint; Z91.83 Wandering in diseases classified elsewhere; F41.9 Anxiety disorder, unspecified; G62.9 Polyneuropathy, unspecified; G89.29 Other chronic pain; M19.90 Unspecified osteoarthritis, unspecified site; Z79.2 Long term (current) use of antibiotics
CPT/HCPCS: 36415; 36573; 71045; 77001; 80048; 80053; 81001; 82550; 83605; 84484; 85007; 85014; 85018; 85025; 85027; 85610; 86140; 86850; 86900; 86901; 86920; 87040; 87070; 87071; 87075; 87077; 87186; 87205; 87426; 88305; 88311; 93005; 93312; 96361; 96365; 96375; 99291; A7015; C1713; C1892; J0330; J0360; J0878; J1100; J1170; J1650; J2060; J2185; J2405; J2543; J2704; J3010; J3243; J3370; J3480; J3490; J7030; J7060; J7120; P9016; P9045; P9612; 97110-GO; 97112-GP; 97164-GP; 97530-GO; 97530-GP; 97535-GO; C1769; G0378; U0003-CS

== ENCOUNTER 2020-01-05 12:28 | Day surgery (SDC) | payer MEDICARE ==
[~2020-01-05 12:28] MED LIST changes: +ASCO500C PO; +ENOX40DI SQ; +ERAV50VI IV; +HYDR25CA75 PO; +LACT1CAP53 PO; +MULT-245 PO; +TEMA15CA PO
[2020-01-05] MEDS ORDERED: BUPIVACAINE-EPI 0.25%-1:200000 MPF 30 ML VIAL. INJ ONE (12:45)
[2020-01-05] MEDS ORDERED: IV RINGERS,LACTATED 1000ML 1,000 ML IV SCH (13:21)
[2020-01-05] MEDS ORDERED: PROCHLORPERAZINE 10 MG/2 ML VIAL. IV PRN (13:30)
[2020-01-05] MEDS ORDERED: fentaNYL PF VIAL 100 MCG/2 ML VIAL IV PRN (13:30)
[2020-01-05] MEDS ORDERED: MORPHINE SULFATE 2 MG/ML VIAL. IV PRN (13:30)
[2020-01-05] MEDS ORDERED: ONDANSETRON PF 4 MG/2 ML VIAL. IV PRN (13:30)
[2020-01-05] MEDS ORDERED: fentaNYL PF VIAL 100 MCG/2 ML VIAL ONE ×3 (14:13→16:35)
[2020-01-05] MEDS ORDERED: SUCCINYLCHOLINE 200 MG/10 ML VIAL. ONE (14:13)
[2020-01-05] MEDS ORDERED: PHENYLEPHRINE in 0.9% NACL PF 1 MG/10 ML SYRINGE. IV ONE (14:46)
[2020-01-05] MEDS ORDERED: ePHEDrine PF IN SALINE 50 MG/10 ML SYRINGE. IV ONE (15:09)
[2020-01-05] MEDS ORDERED: SEVOFLURANE 16 TO 30 MINUTES. IH ONE (15:20)
[2020-01-05] MEDS ORDERED: PROPOFOL 10 MG/ML (20ML) VIAL. IV ONE (15:21)
[2020-01-05] MEDS ORDERED: LIDOCAINE 2% PF 5 ML VIAL. ONE (15:21)
[2020-01-05] MEDS: fentaNYL PF VIAL 100 MCG/2 ML VIAL IV PRN ×4 (15:46→17:05)
--- NOTE | 2020-01-05 16:00 | SNU/HH DC ---
DISCHARGE ORDERS DISCHARGE INFORMATION: CONDITION ON DISCHARGE: Stable CODE STATUS: Code Status: Full FCI: SNF STAY <30 DAYS: Yes POST DISCHARGE ORDERS: ACTIVITY ORDERS: Resume previous activity, Other, see below WEIGHT BEARING STATUS: Touch down weight bearing BATHING ORDERS: Shower-keep dressing dry, No Tub Bath until see DIET AFTER DISCHARGE: Cardiac WOUND/INCISION CARE: Ice to area for comfort, Do not change dressing (Maintain wound VAC intact as is for 1 week postop as it has a boundary layer present over the closed incision), Reinforce dressing PRN CHECKS AFTER DISCHARGE: CHECKS AFTER DISCHARGE: Check blood press - daily, Check your Temp as needed TREATMENT/EQUIPMENT ORDERS: ADAPTIVE EQUIPMENT NEEDED: Front wheeled walker, Wheelchair Physical Therapy For: Evalulation/Treatment Occupational Therapy For: Evaluation/Treatment DISCHARGE MEDICATIONS: Home Meds Active Scripts Daptomycin (Daptomycin) 350 Mg Vial, 460 MG IV DAILY for knee infection for 30 Days, #40 EACH Prov:DEIRDRE AVILA MD 08/25/19 Hydromorphone Hcl (DILAUDID) 8 Mg Tablet, 1 TAB PO PRN Q4HRS PRN for pain MDD 6 Tablet(s) for 14 Days, #80 TAB 0 Refills Prov:LESLIE PEREZ MD 08/18/19 Reported Medications Temazepam (TEMAZEPAM) 15 Mg Capsule, 15 MG PO HS PRN for INSOMNIA, CAP 12/05/19 Multivitamin (MULTI VITAMIN DAILY) 1 Each Tablet, 1 EACH PO DAILY for VITAMIN , TAB 12/05/19 Hydroxyzine Pamoate (HYDROXYZINE PAMOATE) 25 Mg Capsule, 25 MG PO TID for A NXIETY, CAP 12/05/19 Eravacycline Di-Hydrochloride (Xerava) 50 Mg Vial, 50 MG IV BID for ANTIBIOTIC, EACH 12/05/19 Enoxaparin Sodium (LOVENOX) 40 Mg/0.4 Ml Disp.syrin, 40 MG SQ DAILY for ANTI- COAGULANT, DIS.SYR 12/05/19 Lactobacillus Acidophilus (Digestive Probiotic) 1 Each Capsule, 1 EACH PO DAILY for PROBIOTIC, CAP 12/05/19 Ascorbic Acid (VITAMIN C) 500 Mg Capsule.er, 500 MG PO DAILY for VITAMIN , CAP.SR 12/05/19 Pantoprazole Sodium (PROTONIX) 20 Mg Tablet.dr, 40 MG PO HS for gerd, TAB 04/18/19 Carvedilol (COREG ) 6.25 Mg Tablet, 1 TAB PO BID, #180 TAB 3 Refills 04/13/17 Ezetimibe (ZETIA) 10 Mg Tablet, 1 TAB PO DAILY AM, #30 TAB 5 Refills 04/13/17 Escitalopram Oxalate (LEXAPRO) 20 Mg Tablet, 40 MG PO DAILY for ANTI-DEPRESSANT, TAB 0 Refills 08/11/16 Duloxetine Hcl (CYMBALTA) 60 Mg Capsule., 90 MG PO DAILY for depression, CAP 10/05/13 LESLIE PEREZ MD Jan 05, 2020 16:00
[2020-01-05] MEDS ORDERED: hydrALAZINE 20 MG/ML VIAL. ONE (16:02)
[2020-01-05] MEDS ORDERED: hydrALAZINE 20 MG/ML VIAL. IVP PRN (16:15)
--- NOTE | 2020-01-05 16:28 | PDOC4 ---
Operative Note Operative Note Date of surgery: 01/05/2020 Preoperative diagnosis: Drainage from right above-knee amputation stump Postoperative diagnosis: Subcutaneous seroma with intact muscle and fascial covering over femur Operative procedure: Irrigation debridement skin subcutaneous tissue and closure with wound VAC placement of above-knee amputation stump Surgeon: Jono Anesthesia: General Estimated blood loss: 25 cc Complications: None Operative indications: Please see my orthopedic clinic note of today for detailed operative indications Operative text: Patient was identified procedure verified patient placed in the supine position on the operating table. After adequate amounts of general anesthesia were administered patient was placed in the prone position and all bony prominences well-padded. The right below-knee amputation stump was prepped and draped in standard sterile fashion. About a 1 cm opening was noted in the distal posterior aspect of the incision closure no surrounding redness or erythema was present. After timeout was performed patient procedure identified and verified the opening was widened by extending the incision posteriorly and she was noted to have subcutaneous seroma formation with no evidence of gross purulence. The muscle and fascia covering over the amputated distal femur site was intact and tissue was viable. Light debridement of the skin and subcutaneous tissue as well as the fascial covering was carried out to remove any traces of slough. Thorough irrigation was carried out normal saline solution with pulse lavage and closure accomplished with buried 0 PDS suture skin closure with 2-0 nylon in a vertical mattress fashion. A wound VAC with boundary layer was placed and held excellent suction. Patient was returned to recovery room in stable condition having tolerated the procedure well LESLIE PEREZ MD Jan 05, 2020 16:28
[2020-01-05 17:10] VITALS: BP 153/55
== END 2020-01-06 17:15 ==
LOC: SURG 12:28
PROVIDERS: ATTEND Orthopaedic Surgery
DX: L76.34 Postprocedural seroma of skin and subcutaneous tissue following other procedure (principal); S88.011D Complete traumatic amputation at knee level, right lower leg, subsequent encounter; T84.53XD Infection and inflammatory reaction due to internal right knee prosthesis, subsequent encounter; T88.8XXD Other specified complications of surgical and medical care, not elsewhere classified, subsequent encounter; T87.89 Other complications of amputation stump; Z20.828 Contact with and (suspected) exposure to other viral communicable diseases; I12.9 Hypertensive chronic kidney disease with stage 1 through stage 4 chronic kidney disease, or unspecified chronic kidney disease; E11.22 Type 2 diabetes mellitus with diabetic chronic kidney disease; D64.9 Anemia, unspecified; N18.2 Chronic kidney disease, stage 2 (mild); E66.9 Obesity, unspecified; K21.00 Gastro-esophageal reflux disease with esophagitis, without bleeding; M62.81 Muscle weakness (generalized); R26.9 Unspecified abnormalities of gait and mobility; F41.9 Anxiety disorder, unspecified; R74.01 Elevation of levels of liver transaminase levels; A41.59 Other Gram-negative sepsis; E43 Unspecified severe protein-calorie malnutrition; Z89.611 Acquired absence of right leg above knee; X58.XXXD Exposure to other specified factors, subsequent encounter; Y93.89 Activity, other specified; Y92.89 Other specified places as the place of occurrence of the external cause; Y99.8 Other external cause status; Z79.899 Other long term (current) drug therapy; Z79.84 Long term (current) use of oral hypoglycemic drugs; Z90.5 Acquired absence of kidney
CPT/HCPCS: 11042; 87426; A4461; A7015; C9803; J0330; J0360; J2370; J2704; J3010; J3490; U0003